=== PATIENT | male | born 1955 | race Caucasian/White ===

== ENCOUNTER → 2016-06-23 | Outpatient (CLI) | payer MEDICARE, BC ==
[2016-06-23 10:20] LABS: Anisocytosis Slight; Basophils % (A) 1 %; CH 30.5; CHCM 30.3; Eosinophils # (A) 0.1 k/uL (0-0.7); Eosinophils % (A) 2 %; HCT 32.5 % (39.0-53.0); HGB 9.6 gm/dL (13.0-17.5); Hypochromasia Marked; Luc # (Auto) 0.11; Luc % (Auto) 4; Lymphocytes # (A) 0.7 k/uL (1.0-4.8); Lymphocytes % (A) 25 %; MCHC 29.6 g/dL (31.0-37.0); MCV 101.4 fL (80.0-100.0); Macrocytosis Slight; Mean Platelet Volume 8.9; Monocytes # (A) 0.2 k/uL (0-1.0); Monocytes % (A) 8 %; Neutrophils # (A) 1.8 k/uL (1.3-7.7); Neutrophils % (A) 61 %; RBC 3.21 m/uL (4.30-5.90); RDW 16.4 % (11.5-15.5); WBC 2.9 k/uL (3.8-10.6); WBC (Perox) 3.08
[2016-06-23 10:23] LABS: Calcium 8.7 mg/dL (8.4-10.2); Magnesium 2.4 mg/dL (1.6-2.3); Phosphorous 4.5 mg/dL (2.5-4.5); Uric Acid 6.6 mg/dL (3.5-8.5)
[2016-06-23 10:24] LABS: Creatinine,Urine Random 54.1 mg/dL
[2016-06-23 10:29] LABS: Appearance,Urine Clear (Clear); Bilirubin,Urine Negative (Negative); Glucose,Urine (UA) Negative (Negative); Ketones,Urine Negative (Negative); Leukocyte Esterase,Urine Negative (Negative); Nitrite,Urine Negative (Negative); PH, Urine 6.5 (5.0-8.0); Particle Count 421; Protein,Urine 3+ (Negative); RBC,Urine 5 /hpf (0-5); Specific Gravity,Urine 1.011 (1.001-1.035); Squamous Epithelial Cell,Urine <1 /hpf (0-4); UA Billing (MACRO vs. MICRO) MICRO; Urobilinogen,Urine <2.0 mg/dL (<2.0); WBC,Urine 2 /hpf (0-5)
[2016-06-23 10:32] LABS: % Iron Saturation 28.9 % (20-50)
[2016-06-23 10:54] LABS: Hemoglobin A1C 4.7 % (4.2-6.1)
[2016-06-23 11:01] LABS: Potassium 6.2 mmol/L (3.5-5.1)
[2016-06-24 12:17] LABS: Mis test requested (Non-blood) Urine Total Protein
== END | disposition home or self-care (01) ==
LOC: LABWHC1 09:21
PROVIDERS: ATTEND Nurse Practitioner Family
DX: E11.22 Type 2 diabetes mellitus with diabetic chronic kidney disease (principal); N18.3 Chronic kidney disease, stage 3 (moderate); E11.29 Type 2 diabetes mellitus with other diabetic kidney complication; N25.81 Secondary hyperparathyroidism of renal origin; D64.9 Anemia, unspecified; E83.42 Hypomagnesemia; M10.9 Gout, unspecified; N39.0 Urinary tract infection, site not specified
CPT/HCPCS: 36415; 80048; 81001; 82040; 82306; 82570; 82728; 83036; 83540; 83550; 83735; 83970; 84100; 84156; 84550; 85025

== ENCOUNTER → 2016-06-25 | Outpatient (CLI) | payer MEDICARE, BC ==
[2016-06-25 11:25] LABS: INR 1.1 (<1.1); Partial Thromboplastin Time 24.7 sec (22.0-30.0); Prothrombin Time 10.9 sec (9.0-12.0)
[2016-06-25 11:51] LABS: Calcium 8.8 mg/dL (8.4-10.2); Potassium 5.6 mmol/L (3.5-5.1)
== END | disposition home or self-care (01) ==
LOC: LABWHC1 10:44
PROVIDERS: ATTEND Nurse Practitioner Family
DX: N18.3 Chronic kidney disease, stage 3 (moderate) (principal)
CPT/HCPCS: 36415; 80048; 85610; 85730

== ENCOUNTER → 2016-07-01 | Outpatient (CLI) | payer MEDICARE, BC ==
[2016-07-01 09:37] LABS: Anisocytosis Slight; Basophils % (A) 1 %; CH 30.5; CHCM 29.3; Eosinophils # (A) 0.1 k/uL (0-0.7); Eosinophils % (A) 1 %; HCT 34.6 % (39.0-53.0); HDW 2.95; Hypochromasia Marked; Luc # (Auto) 0.11; Luc % (Auto) 3; Lymphocytes # (A) 0.8 k/uL (1.0-4.8); Lymphocytes % (A) 22 %; MCH 30.2 pg (25.0-35.0); MCHC 28.8 g/dL (31.0-37.0); MCV 104.7 fL (80.0-100.0); Macrocytosis Moderate; Mean Platelet Volume 8.9; Monocytes # (A) 0.3 k/uL (0-1.0); Monocytes % (A) 8 %; Neutrophils # (A) 2.4 k/uL (1.3-7.7); Neutrophils % (A) 65 %; RDW 16.2 % (11.5-15.5); WBC 3.6 k/uL (3.8-10.6)
[2016-07-01 09:43] LABS: Calcium 8.8 mg/dL (8.4-10.2); Potassium 5.9 mmol/L (3.5-5.1); Total Bilirubin 0.5 mg/dL (0.2-1.3); Total Protein 5.1 g/dL (6.3-8.2)
== END | disposition home or self-care (01) ==
LOC: LABWHC1 08:52
PROVIDERS: ATTEND Internal Medicine Nephrology
DX: N18.3 Chronic kidney disease, stage 3 (moderate) (principal)
CPT/HCPCS: 36415; 80053; 85025

== ENCOUNTER 2016-07-18 20:49 | Inpatient (IN) | payer MEDICARE, BC ==
[2016-07-18 20:56] LABS: Glucose,Whole Blood 83 mg/dL (75-99)
--- NOTE | 2016-07-18 21:05 | ED ---
General Adult HPI - General Stated complaint: altered mental status Time Seen by Provider: 07/18/16 20:51 Source: RN notes reviewed, old records reviewed - History of Present Illness Initial comments: This is a 61-year-old male the ER for evaluation. This patient presents for evaluation of altered mental status, found down. Patient was finally gone to be hypoglycemic. Patient has no complaints of any trauma, no new medications, patient does take steroids daily, patient states he does feel weak, does not recall events of why and up on the ground or why he was of low spottiness decreased level of consciousness. - Related Data Home Medications Medication Instructions Recorded Confirmed Cholecalciferol [Vitamin D3] 1,000 mg PO BID 05/17/14 07/18/[address] [Myfortic] 360 mg PO HS 05/17/14 07/18/16 Pantoprazole Sodium 40 mg PO DAILY 05/17/14 07/18/16 Sodium Bicarbonate Tab 650 mg PO BID 05/17/14 07/18/16 predniSONE 5 mg PO DAILY 05/17/14 07/18/16 Tacrolimus [Prograf] 2 mg PO BID 12/06/14 07/18/16 Warfarin [Coumadin] 1 mg PO DIRECTED 12/06/14 07/18/16 Magnesium Gluconate [Magonate] 500 mg PO DAILY 02/01/15 07/18/16 Aspirin EC [Ecotrin Low Dose] 81 mg PO HS 02/12/16 07/18/16 Atorvastatin [Lipitor] 80 mg PO HS 02/12/16 07/18/16 Calcitriol 1 mcg PO BID 02/12/16 07/18/16 Vit C/E/Zn/Coppr/Lutein/Zeaxan 1 cap PO DAILY 02/12/16 07/18/16 [Preservision Areds 2 Softgel] INSULIN LISPRO (HumaLOG) [humaLOG] 8 units SQ BID 07/18/16 07/18/16 Sodium Polystyrene Sulfon/Sorb 60 ml PO DIRECTED 07/18/16 07/18/16 [Kionex 15 gm/60 ml Suspension] Temazepam [Restoril] 15 mg PO HS 07/18/16 07/18/16 Warfarin [Coumadin] 2 mg PO DIRECTED 07/18/16 07/18/16 Allergies Allergy/AdvReac Type Severity Reaction Status Date / Time codeine AdvReac Severe constipatio Verified 07/18/16 21:35 n Review of Systems ROS Statement: Those systems with pertinent positive or pertinent negative responses have been documented in the HPI. ROS Other: All systems not noted in ROS Statement are negative. Past Medical History Past Medical History: Atrial Fibrillation, Coronary Artery Disease (CAD), Diabetes Mellitus, Deep Vein Thrombosis (DVT), GERD/Reflux, Hyperlipidemia, Myocardial Infarction ([place]), Renal Disease, Skin Disorder, Thyroid Disorder, Vascular Disorder Additional Past Medical History / Comment(s): IN PAST TOOK MEDS FOR HYPERTENSION NONE NOW Last Myocardial Infarction Date:: 2009 History of Any Multi-Drug Resistant Organisms: None Reported Past Surgical History: Adenoidectomy, Bariatric Surgery, Coronary Bypass/CABG, Heart Catheterization, Tonsillectomy Additional Past Surgical History / Comment(s): jamarcus fliter, kidney transplant-2010 has rt kidney,CABG-2009, gastric bypass, RT great toe amputation , [employer] CAT[employer]ACTS, carotid endarterectomy, amputation lt BKA. angioplasty to the popliteal artery and posterior left femoral artery performed by Dr. Fowler on 01-30-15 Past Anesthesia/Blood Transfusion Reactions: No Reported Reaction Additional Past Anesthesia/Blood Transfusion Reaction / Comment(s): HX BLOOD TRANSFUSIONS- NO REACTIONS . Past Psychological History: No Psychological Hx Reported Additional Psychological History / Comment(s): Is medically disabled after his renal transplantation. 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 Past Drug Use History: None Reported - Past Family History Father Family Medical History: Diabetes Mellitus Additional Family Medical History / Comment(s): "big heart", bilat BKA Mother Family Medical History: Cancer Additional Family Medical History / Comment(s): colon General Exam General appearance: alert, in no apparent distress, lethargic Head exam: Present: atraumatic, normocephalic, normal inspection Eye exam: Present: normal appearance, PERRL, EOMI. Absent: scleral icterus, conjunctival injection, periorbital swelling ENT exam: Present: normal exam, mucous membranes moist Neck exam: Present: normal inspection. Absent: tenderness, meningismus, lymphadenopathy Respiratory exam: Present: normal lung sounds bilaterally. Absent: respiratory distress, wheezes, rales, rhonchi, stridor Cardiovascular Exam: Present: regular rate, normal rhythm, normal heart sounds. Absent: systolic murmur, diastolic murmur, rubs, gallop, clicks GI/Abdominal exam: Present: soft, normal bowel sounds. Absent: distended, tenderness, guarding, rebound, rigid Extremities exam: Present: normal inspection, full ROM, normal capillary refill. Absent: tenderness, pedal edema, joint swelling, calf tenderness Back exam: Present: normal inspection Neurological exam: Present: alert, oriented X3, CN II-XII intact Psychiatric exam: Present: normal affect, normal mood Skin exam: Present: warm, dry, intact, normal color. Absent: rash Course Vital Signs 07/18/16 07/18/16 07/18/16 20:56 21:53 22:44 Temperature 95.8 F L 95.8 F L Pulse Rate 71 57 L 73 Respiratory 20 18 18 Rate Blood Pressure 157/68 178/66 O2 Sat by Pulse 98 98 98 Oximetry 07/18/16 23:54 Temperature 95.8 F L Pulse Rate 80 Respiratory 16 Rate Blood Pressure 171/72 O2 Sat by Pulse 95 Oximetry - Reevaluation(s) Reevaluation #1: 07/18/16 22:50 Patient remains bradycardic, hypothermic Reevaluation #2: 07/19/16 00:31 Patient still at this time remains hypothermic Reevaluation #3: 07/19/16 00:31 Patient is feeling better mentally EKG Findings - EKG Comments: EKG Findings:: EKG shows normal sinus rhythm rate of 71, OR 158, QRS 106, QTC 493 Medical Decision Making - Medical Decision Making 61 other current hyperglycemia, hypothermia, altered mental status and syncopal event. Patient is in acute renal failure which is worsening, patient also redesignated started on insulin and sugar therapy, patient will be admitted for neurological evaluation and treatment, monitoring of in mental status. - Lab Data Result diagrams: 07/18/16 21:25 07/18/16 21:25 Lab Results 07/18/16 07/18/16 07/18/16 Range/Units 20:54 21:25 21:25 WBC 4.9 (3.8-10.6) k/uL RBC 3.37 L (4.30-5.90) m/uL Hgb 10.4 L (13.0-17.5) gm/dL Hct 34.2 L (39.0-53.0) % MCV 101.5 H (80.0-100.0) fL MCH 30.9 (25.0-35.0) pg MCHC 30.5 L (31.0-37.0) g/dL RDW 15.4 (11.5-15.5) % Plt Count 193 (150-450) k/uL Neutrophils % 82 % Lymphocytes % 8 % Monocytes % 7 % Eosinophils % 0 % Basophils % 0 % Neutrophils # 4.0 (1.3-7.7) k/uL Lymphocytes # 0.4 L (1.0-4.8) k/uL Monocytes # 0.3 (0-1.0) k/uL Eosinophils # 0.0 (0-0.7) k/uL Basophils # 0.0 (0-0.2) k/uL Hypochromasia Moderate Macrocytosis Slight PT (9.0-12.0) sec INR (<1.1) APTT (22.0-30.0) sec Sodium (137-145) mmol/L Potassium (3.5-5.1) mmol/L Chloride (98-107) mmol/L Carbon Dioxide (22-30) mmol/L Anion Gap mmol/L BUN (9-20) mg/dL Creatinine (0.66-1.25) mg/dL Est GFR (MDRD) Af Amer (>60 ml/min/1.73 sqM) Est GFR (MDRD) Non-Af (>60 ml/min/1.73 sqM) Glucose (74-99) mg/dL POC Glucose (mg/dL) 83 (75-99) mg/dL POC Glu Cuff Cutter ID Plasma Lactic Acid Anastacio (0.7-2.0) mmol/L Calcium (8.4-10.2) mg/dL Phosphorus (2.5-4.5) mg/dL Magnesium (1.6-2.3) mg/dL Total Bilirubin (0.2-1.3) mg/dL AST (17-59) U/L ALT (21-72) U/L Alkaline Phosphatase (38-126) U/L Total Creatine Kinase 52 L (55-170) U/L CK-MB (CK-2) 2.1 (0.0-2.4) ng/mL CK-MB (CK-2) Rel Index 4.0 Troponin I 0.055 H* (0.000-0.034) ng/mL Total Protein (6.3-8.2) g/dL Albumin (3.5-5.0) g/dL TSH (0.465-4.680) mIU/L Free T4 (0.78-2.19) ng/dL 07/18/16 07/18/16 07/18/16 Range/Units 21:25 21:25 21:25 WBC (3.8-10.6) k/uL RBC (4.30-5.90) m/uL Hgb (13.0-17.5) gm/dL Hct (39.0-53.0) % MCV (80.0-100.0) fL MCH (25.0-35.0) pg MCHC (31.0-37.0) g/dL RDW (11.5-15.5) % Plt Count (150-450) k/uL Neutrophils % % Lymphocytes % % Monocytes % % Eosinophils % % Basophils % % Neutrophils # (1.3-7.7) k/uL Lymphocytes # (1.0-4.8) k/uL Monocytes # (0-1.0) k/uL Eosinophils # (0-0.7) k/uL Basophils # (0-0.2) k/uL Hypochromasia Macrocytosis PT 15.6 H (9.0-12.0) sec INR 1.6 (<1.1) APTT 27.4 (22.0-30.0) sec Sodium 140 (137-145) mmol/L Potassium 5.3 H (3.5-5.1) mmol/L Chloride 110 H (98-107) mmol/L Carbon Dioxide 19 L (22-30) mmol/L Anion Gap 11 mmol/L BUN 49 H (9-20) mg/dL Creatinine 4.13 H (0.66-1.25) mg/dL Est GFR (MDRD) Af Amer 18 (>60 ml/min/1.73 sqM) Est GFR (MDRD) Non-Af 15 (>60 ml/min/1.73 sqM) Glucose 67 L (74-99) mg/dL POC Glucose (mg/dL) (75-99) mg/dL POC Glu Cuff Cutter ID Plasma Lactic Acid Anastacio 1.1 (0.7-2.0) mmol/L Calcium 8.8 (8.4-10.2) mg/dL Phosphorus 4.2 (2.5-4.5) mg/dL Magnesium 2.1 (1.6-2.3) mg/dL Total Bilirubin 0.5 (0.2-1.3) mg/dL AST 21 (17-59) U/L ALT 31 (21-72) U/L Alkaline Phosphatase 65 (38-126) U/L Total Creatine Kinase (55-170) U/L CK-MB (CK-2) (0.0-2.4) ng/mL CK-MB (CK-2) Rel Index Troponin I (0.000-0.034) ng/mL Total Protein 5.3 L (6.3-8.2) g/dL Albumin 2.8 L (3.5-5.0) g/dL TSH 8.610 H (0.465-4.680) mIU/L Free T4 1.24 (0.78-2.19) ng/dL 07/18/16 07/18/16 07/18/16 Range/Units 21:57 22:18 22:42 WBC (3.8-10.6) k/uL RBC (4.30-5.90) m/uL Hgb (13.0-17.5) gm/dL Hct (39.0-53.0) % MCV (80.0-100.0) fL MCH (25.0-35.0) pg MCHC (31.0-37.0) g/dL RDW (11.5-15.5) % Plt Count (150-450) k/uL Neutrophils % % Lymphocytes % % Monocytes % % Eosinophils % % Basophils % % Neutrophils # (1.3-7.7) k/uL Lymphocytes # (1.0-4.8) k/uL Monocytes # (0-1.0) k/uL Eosinophils # (0-0.7) k/uL Basophils # (0-0.2) k/uL Hypochromasia Macrocytosis PT (9.0-12.0) sec INR (<1.1) APTT (22.0-30.0) sec Sodium (137-145) mmol/L Potassium (3.5-5.1) mmol/L Chloride (98-107) mmol/L Carbon Dioxide (22-30) mmol/L Anion Gap mmol/L BUN (9-20) mg/dL Creatinine (0.66-1.25) mg/dL Est GFR (MDRD) Af Amer (>60 ml/min/1.73 sqM) Est GFR (MDRD) Non-Af (>60 ml/min/1.73 sqM) Glucose (74-99) mg/dL POC Glucose (mg/dL) 50 L 55 L 161 H (75-99) mg/dL POC Glu Cuff Cutter Genoveva Bond Nicole Smith, Nicole Plasma Lactic Acid Anastacio (0.7-2.0) mmol/L Calcium (8.4-10.2) mg/dL Phosphorus (2.5-4.5) mg/dL Magnesium (1.6-2.3) mg/dL Total Bilirubin (0.2-1.3) mg/dL AST (17-59) U/L ALT (21-72) U/L Alkaline Phosphatase (38-126) U/L Total Creatine Kinase (55-170) U/L CK-MB (CK-2) (0.0-2.4) ng/mL CK-MB (CK-2) Rel Index Troponin I (0.000-0.034) ng/mL Total Protein (6.3-8.2) g/dL Albumin (3.5-5.0) g/dL TSH (0.465-4.680) mIU/L Free T4 (0.78-2.19) ng/dL 07/18/16 Range/Units 23:52 WBC (3.8-10.6) k/uL RBC (4.30-5.90) m/uL Hgb (13.0-17.5) gm/dL Hct (39.0-53.0) % MCV (80.0-100.0) fL MCH (25.0-35.0) pg MCHC (31.0-37.0) g/dL RDW (11.5-15.5) % Plt Count (150-450) k/uL Neutrophils % % Lymphocytes % % Monocytes % % Eosinophils % % Basophils % % Neutrophils # (1.3-7.7) k/uL Lymphocytes # (1.0-4.8) k/uL Monocytes # (0-1.0) k/uL Eosinophils # (0-0.7) k/uL Basophils # (0-0.2) k/uL Hypochromasia Macrocytosis PT (9.0-12.0) sec INR (<1.1) APTT (22.0-30.0) sec Sodium (137-145) mmol/L Potassium (3.5-5.1) mmol/L Chloride (98-107) mmol/L Carbon Dioxide (22-30) mmol/L Anion Gap mmol/L BUN (9-20) mg/dL Creatinine (0.66-1.25) mg/dL Est GFR (MDRD) Af Amer (>60 ml/min/1.73 sqM) Est GFR (MDRD) Non-Af (>60 ml/min/1.73 sqM) Glucose (74-99) mg/dL POC Glucose (mg/dL) 108 H (75-99) mg/dL POC Glu Cuff Cutter Genoveva Bond Plasma Lactic Acid Anastacio (0.7-2.0) mmol/L Calcium (8.4-10.2) mg/dL Phosphorus (2.5-4.5) mg/dL Magnesium (1.6-2.3) mg/dL Total Bilirubin (0.2-1.3) mg/dL AST (17-59) U/L ALT (21-72) U/L Alkaline Phosphatase (38-126) U/L Total Creatine Kinase (55-170) U/L CK-MB (CK-2) (0.0-2.4) ng/mL CK-MB (CK-2) Rel Index Troponin I (0.000-0.034) ng/mL Total Protein (6.3-8.2) g/dL Albumin (3.5-5.0) g/dL TSH (0.465-4.680) mIU/L Free T4 (0.78-2.19) ng/dL - Radiology Data Radiology results: report reviewed (Chest x-ray 2 views negative for acute disease), image reviewed Critical Care Time Critical Care Time: Yes Total Critical Care Time: 31 Disposition Clinical Impression: Altered mental status, Syncope, Hypoglycemia, Hypothermia Disposition: ADMITTED IP TO THIS HOSP Condition: Serious
[2016-07-18] MEDS ORDERED: SODIUM CHLORIDE 0.9% 1,000 ML IV STA ×3 (21:41→21:55)
[2016-07-18] MEDS ORDERED: HYDROCORTISONE SUCCINATE 100 MG/2 ML VIAL IV STA (21:55)
[2016-07-18 21:58] LABS: Glucose,Whole Blood 50 mg/dL (75-99)
[2016-07-18 22:12] LABS: Basophils % (A) 0 %; CH 30.9; CHCM 30.7; Eosinophils % (A) 0 %; HCT 34.2 % (39.0-53.0); HDW 2.92; HGB 10.4 gm/dL (13.0-17.5); Hypochromasia Moderate; Luc % (Auto) 2; Lymphocytes # (A) 0.4 k/uL (1.0-4.8); Lymphocytes % (A) 8 %; MCH 30.9 pg (25.0-35.0); MCHC 30.5 g/dL (31.0-37.0); MCV 101.5 fL (80.0-100.0); Macrocytosis Slight; Mean Platelet Volume 8.8; Monocytes # (A) 0.3 k/uL (0-1.0); Monocytes % (A) 7 %; Neutrophils % (A) 82 %; RBC 3.37 m/uL (4.30-5.90); RDW 15.4 % (11.5-15.5); WBC 4.9 k/uL (3.8-10.6); WBC (Perox) 4.99
[2016-07-18 22:13] LABS: INR 1.6 (<1.1); Partial Thromboplastin Time 27.4 sec (22.0-30.0); Prothrombin Time 15.6 sec (9.0-12.0)
[2016-07-18 22:15] LABS: Calcium 8.8 mg/dL (8.4-10.2); Magnesium 2.1 mg/dL (1.6-2.3); Phosphorous 4.2 mg/dL (2.5-4.5); Potassium 5.3 mmol/L (3.5-5.1); Total Bilirubin 0.5 mg/dL (0.2-1.3); Total Protein 5.3 g/dL (6.3-8.2)
[2016-07-18] MEDS: DEXTROSE 50%-WATER 50 ML SYRINGE IVP STA (22:22)
[2016-07-18 22:30] LABS: Glucose,Whole Blood 55 mg/dL (75-99)
[2016-07-18 22:36] LABS: Creatine Kinase MB 2.1 ng/mL (0.0-2.4)
[2016-07-18 22:43] LABS: Glucose,Whole Blood 161 mg/dL (75-99)
[2016-07-18 22:43] LABS: Troponin I 0.055 ng/mL (0.000-0.034)
[2016-07-18] MEDS ORDERED: DEXTROSE 5%-0.45% NACL 1,000 ML IV ONE (22:50)
--- NOTE | 2016-07-18 23:33 | XR ---
EXAMINATION TYPE: XR chest 2V DATE OF EXAM: 07/18/2016 11:24 PM COMPARISON: 06/18/2016 HISTORY: Chest pain TECHNIQUE: Frontal and lateral views of the chest are obtained. FINDINGS: Heart is enlarged. There is some fluid in the fissures bilaterally and more on the right s sandy. There is mild pulmonary vascular congestion. There is blunting of right costophrenic angle. Ther e are chest leads. There is coarsening of interstitial pulmonary markings. IMPRESSION: There is evidence of congestive heart failure with loculated pleural effusions and large r on the right side. Pleural fluid is significantly increased compared to last exam. There is probabl y some underlying pulmonary fibrosis. Heart appears increased compared to old exam.
[2016-07-18 23:54] LABS: Glucose,Whole Blood 108 mg/dL (75-99)
[2016-07-19 01:04] LABS: Glucose,Whole Blood 75 mg/dL (75-99)
[2016-07-19] MEDS ORDERED: FUROSEMIDE 10 MG/ML 2 ML VIAL IV ONE (01:11)
[2016-07-19] MEDS: SODIUM CHLORIDE 0.9% 1,000 ML IV SCH (01:20)
[2016-07-19] MEDS ORDERED: DEXTROSE 50%-WATER 50 ML SYRINGE IVP STA (01:37)
[2016-07-19 02:24] LABS: Glucose,Whole Blood 63 mg/dL (75-99)
[2016-07-19] MEDS: DEXTROSE 50%-WATER 50 ML SYRINGE IVP STA (02:27)
[2016-07-19 03:10] VITALS: BMI 25.7
[2016-07-19 03:21] LABS: Glucose,Whole Blood 96 mg/dL (75-99)
[2016-07-19 04:31] LABS: Glucose,Whole Blood 97 mg/dL (75-99)
[2016-07-19 05:37] LABS: Glucose,Whole Blood 87 mg/dL (75-99)
[2016-07-19 06:41] LABS: Glucose,Whole Blood 87 mg/dL (75-99)
[2016-07-19] MEDS: INSULIN LISPRO (humaLOG) 300 UNIT/3 ML VIAL SQ SCH ×3 (06:55→18:05)
[2016-07-19 07:14] LABS: Glucose,Whole Blood 107 mg/dL (75-99)
[2016-07-19] MEDS: CHOLECALCIFEROL 1,000 UNIT TAB PO SCH ×2 (08:44→20:41)
[2016-07-19] MEDS: VIT A,C & E-LUTEIN-MINERALS 1 EACH TAB PO SCH (08:45)
[2016-07-19] MEDS: SODIUM BICARBONATE TAB 650 MG TAB PO SCH ×2 (08:45→20:42)
[2016-07-19] MEDS: PANTOPRAZOLE 40 MG TABLET PO SCH (08:45)
[2016-07-19] MEDS: predniSONE 5 MG TAB PO SCH (08:45)
[2016-07-19] MEDS: TACROLIMUS 1 MG CAP PO SCH ×2 (08:45→20:41)
[2016-07-19] MEDS: MAGNESIUM OXIDE 400 MG TAB PO SCH (08:45)
[2016-07-19 09:22] LABS: Appearance,Urine Clear (Clear); Bilirubin,Urine Negative (Negative); Glucose,Urine (UA) Negative (Negative); Ketones,Urine Negative (Negative); Leukocyte Esterase,Urine Negative (Negative); Mucus,Urine Rare /hpf; Nitrite,Urine Negative (Negative); PH, Urine 6.5 (5.0-8.0); Particle Count 396; Protein,Urine 3+ (Negative); RBC,Urine 6 /hpf (0-5); Specific Gravity,Urine 1.008 (1.001-1.035); Squamous Epithelial Cell,Urine <1 /hpf (0-4); UA Billing (MACRO vs. MICRO) MICRO; Urobilinogen,Urine <2.0 mg/dL (<2.0); WBC,Urine 2 /hpf (0-5)
[2016-07-19] MEDS: CALCITRIOL 0.25 MCG CAP PO SCH ×2 (10:27→22:15)
--- NOTE | 2016-07-19 10:54 | P.HPIM ---
History of Present Illness H&P Date: 07/19/16 Chief Complaint: Loss of consciousness Patient is a 61-year-old male well-known to my practice was multiple medical problems, who was at home last night, he states that he took his evening dose of insulin, he was standing by the stove cooking his dinner when he collapsed, family members were not able to get hold of him, they called the police department who went to his house he was found on the floor in his kitchen. Time down is about 2-1/2 hours patient was having hypothermia his temperature was down to 95, he was brought into emergency room he had evidence of hypoglycemia he was given IV fluid was glucose and was admitted to telemetry floor. Chest x-ray revealed evidence of pulmonary congestion was bilateral pleural effusion. Past Medical History Past Medical History: Atrial Fibrillation, Coronary Artery Disease (CAD), Diabetes Mellitus, Deep Vein Thrombosis (DVT), GERD/Reflux, Hyperlipidemia, Myocardial Infarction ([place]), Renal Disease, Skin Disorder, Thyroid Disorder, Vascular Disorder Additional Past Medical History / Comment(s): IN PAST TOOK MEDS FOR HYPERTENSION NONE NOW Last Myocardial Infarction Date:: 2009 History of Any Multi-Drug Resistant Organisms: None Reported Past Surgical History: Adenoidectomy, Bariatric Surgery, Coronary Bypass/CABG, Heart Catheterization, Tonsillectomy Additional Past Surgical History / Comment(s): jamarcus fliter, kidney transplant-2010 has rt kidney,CABG-2009, gastric bypass, RT great toe amputation , [employer] CAT[employer]S, carotid endarterectomy, amputation lt BKA. angioplasty to the popliteal artery and posterior left femoral artery performed by Dr. Fowler on 01-30-15 Past Anesthesia/Blood Transfusion Reactions: No Reported Reaction Additional Past Anesthesia/Blood Transfusion Reaction / Comment(s): HX BLOOD TRANSFUSIONS- NO REACTIONS . Past Psychological History: No Psychological Hx Reported Additional Psychological History / Comment(s): Is medically disabled after his renal transplantation. 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 Past Drug Use History: None Reported - Past Family History Father Family Medical History: Diabetes Mellitus Additional Family Medical History / Comment(s): "big heart", bilat BKA Mother Family Medical History: Cancer Additional Family Medical History / Comment(s): colon Medications and Allergies Home Medications Medication Instructions Recorded Confirmed Type Cholecalciferol [Vitamin D3] 1,000 mg PO BID 05/17/14 07/18/[address] [Myfortic] 360 mg PO HS 05/17/14 07/18/16 History Pantoprazole Sodium 40 mg PO DAILY 05/17/14 07/18/16 History Sodium Bicarbonate Tab 650 mg PO BID 05/17/14 07/18/16 History predniSONE 5 mg PO DAILY 05/17/14 07/18/16 History Tacrolimus [Prograf] 2 mg PO BID 12/06/14 07/18/16 History Warfarin [Coumadin] 1 mg PO DIRECTED 12/06/14 07/18/16 History Magnesium Gluconate [Magonate] 500 mg PO DAILY 02/01/15 07/18/16 History Aspirin EC [Ecotrin Low Dose] 81 mg PO HS 02/12/16 07/18/16 History Atorvastatin [Lipitor] 80 mg PO HS 02/12/16 07/18/16 History Calcitriol 1 mcg PO BID 02/12/16 07/18/16 History Vit C/E/Zn/Coppr/Lutein/Zeaxan 1 cap PO DAILY 02/12/16 07/18/16 History [Preservision Areds 2 Softgel] INSULIN LISPRO (HumaLOG) [humaLOG] 8 units SQ BID 07/18/16 07/18/16 History Sodium Polystyrene Sulfon/Sorb 60 ml PO DIRECTED 07/18/16 07/18/16 History [Kionex 15 gm/60 ml Suspension] Temazepam [Restoril] 15 mg PO HS 07/18/16 07/18/16 History Warfarin [Coumadin] 2 mg PO DIRECTED 07/18/16 07/18/16 History Allergies Allergy/AdvReac Type Severity Reaction Status Date / Time codeine AdvReac Severe constipatio Verified 07/18/16 21:35 n Physical Exam Vitals: Vital Signs Temp Pulse Pulse Resp BP BP Pulse Ox 07/19/16 08:00 97.2 F L 80 18 141/61 99 07/19/16 04:00 97.4 F L 76 18 119/52 94 L 07/19/16 00:38 96.8 F L 72 16 173/75 95 Intake and Output 07/18/16 07/19/16 07/19/16 22:59 06:59 14:59 Intake Total 120 Output Total 550 Balance -550 120 Intake: Oral 120 Output: Urine 550 Other: Voiding Method Urinal # Voids 1 325 Weight 90.71 kg At this time patient is alert and oriented 3 in no apparent distress HEENT head normocephalic and traumatic Neck is supple no JVD no goiter no lymphadenopathy Chest exam reveals a few scattered crackles no wheezing Cardiac exam reveals regular heart sounds S1 and S2 no gallops no murmurs Abdomen is soft nontender no organomegaly with normal bowel sounds Extremity exam reveals no edema no cyanosis or clubbing Results CBC & Chem 7: 07/18/16 21:25 07/18/16 21:25 Labs: Abnormal Lab Results - Last 24 Hours (Table) 07/19/16 07/19/16 07/19/16 Range/Units 02:19 03:19 07:02 POC Glucose (mg/dL) 63 L 107 H (75-99) mg/dL Troponin I 0.047 H* (0.000-0.034) ng/mL Urine Protein (Negative) Urine Blood (Negative) Urine RBC (0-5) /hpf Urine Mucus (None) /hpf 07/19/16 Range/Units 09:00 POC Glucose (mg/dL) (75-99) mg/dL Troponin I (0.000-0.034) ng/mL Urine Protein 3+ H (Negative) Urine Blood Trace H (Negative) Urine RBC 6 H (0-5) /hpf Urine Mucus Rare H (None) /hpf Thrombosis Risk Factor Assmnt - Choose All That Apply Any of the Below Risk Factors Present?: No Each Risk Factor Represents 2 Points: Age 61-74 years Thrombosis Risk Factor Assessment Total Risk Factor Score: 2 Thrombosis Risk Factor Assessment Level: Low Risk Assessment and Plan Plan: #1 syncope was collapse, estimated time of loss of consciousness is stool and a half hours, likely causes hypoglycemia, patient took his his evening dose of insulin, but was still cooking his dinner. Currently glucose level is in normal range #2 hyperthermia on presentation improved #3 acute diastolic congestive heart failure with bilateral pleural effusion #4 acute on chronic renal failure, patient is status post kidney transplant his creatinine has been gradually increasing he is followed by Dr. Saini creatinine on presentation 4.13 BUN 49 #5 underlying history of atrial fibrillation maintained on Coumadin INR was subtherapeutic at 1.6 will increase dose of Coumadin to 2.5 mg daily, will give 5 mg today
[2016-07-19 11:45] LABS: Glucose,Whole Blood 101 mg/dL (75-99)
--- NOTE | 2016-07-19 12:46 | P.CNPUL ---
History of Present Illness Consult date: 07/19/16 Requesting physician: Kyrie Mosquera Reason for consult: abnormal CXR/CT Chief complaint: Syncope History of present illness: This is a very pleasant 61-year-old gentleman who follows with Dr. Mosquera as his primary care physician. He has a past medical history of coronary artery disease with previous coronary artery bypass grafting, atrial fibrillation, diabetes mellitus, DVT with [place] filter placement, GERD, hyperlipidemia, hypothyroidism, right kidney transplant in 2010, left below the knee amputation , right great toe amputation, peripheral vascular disease with angioplasty to the popliteal artery and posterior left femoral artery in 2014. He was here in February 2016 with a left lower lobe pneumonia. The patient is also attempting to be on a kidney transplant list for recurrent renal failure. Last evening he presented to the emergency room after having a syncopal episode. The patient had taken his evening insulin and was cooking his dinner and collapse. Family members had tried to reach him and could not get ahold of him a call the police department who found the patient on the floor his kitchen. There is maintaining a downtime of approximate 2-1/2 hours. The patient was quite hypothermic with a temperature of 95 and hypoglycemic. In the emergency room he was given 3 L of IV fluid and 2 A glucose. He was admitted to the selective care unit. He is seen today in consultation. He is currently awake and alert in no acute distress. He was having issues with wheezing and shortness of breath in the outpatient setting and had been treated with antibiotics approximately 1-2 weeks ago. He was still feeling some shortness of breath yesterday. His admitting chest x-ray revealed evidence of cardiomegaly. There is fluid in the fissures bilaterally more so on the right lung. There is mild pulmonary vascular congestion and blunting of the right costophrenic angle. He had been given 1 dose 20 mg of IV Lasix. He is maintaining good O2 saturations in the upper 90s on 2 L/m per nasal cannula. He's been afebrile. Lactic acid 1.1. No leukocytosis. Influenza screen was negative. He had a troponin leak of 0.055, 0.052. No BNP drawn. His TSH was 8.610 free T4 1 0.24. BUN 49 creatinine 4.13. Review of Systems 14 point review of system was conducted. All negative other than as mentioned in the HPI. Past Medical History Past Medical History: Atrial Fibrillation, Coronary Artery Disease (CAD), Diabetes Mellitus, Deep Vein Thrombosis (DVT), GERD/Reflux, Hyperlipidemia, Myocardial Infarction ([place]), Renal Disease, Skin Disorder, Thyroid Disorder, Vascular Disorder Additional Past Medical History / Comment(s): IN PAST TOOK MEDS FOR HYPERTENSION NONE NOW Last Myocardial Infarction Date:: 2009 History of Any Multi-Drug Resistant Organisms: None Reported Past Surgical History: Adenoidectomy, Bariatric Surgery, Coronary Bypass/CABG, Heart Catheterization, Tonsillectomy Additional Past Surgical History / Comment(s): jamarcus fliter, kidney transplant-2010 has rt kidney,CABG-2009, gastric bypass, RT great toe amputation , [place] CATARACTS, carotid endarterectomy, amputation lt BKA. angioplasty to the popliteal artery and posterior left femoral artery performed by Dr. Fowler on 01-30-15 Past Anesthesia/Blood Transfusion Reactions: No Reported Reaction Additional Past Anesthesia/Blood Transfusion Reaction / Comment(s): HX BLOOD TRANSFUSIONS- NO REACTIONS . Past Psychological History: No Psychological Hx Reported Additional Psychological History / Comment(s): Is medically disabled after his renal transplantation. 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 Past Drug Use History: None Reported - Past Family History Father Family Medical History: Diabetes Mellitus Additional Family Medical History / Comment(s): "big heart", bilat BKA Mother Family Medical History: Cancer Additional Family Medical History / Comment(s): colon Medications and Allergies Home Medications Medication Instructions Recorded Confirmed Type Cholecalciferol [Vitamin D3] 1,000 mg PO BID 05/17/14 07/19/16 History Pantoprazole Sodium 40 mg PO DAILY 05/17/14 07/19/16 History Sodium Bicarbonate Tab 650 mg PO BID 05/17/14 07/19/16 History Tacrolimus [Prograf] 2 mg PO BID 12/06/14 07/19/16 History Magnesium Gluconate [Magonate] 500 mg PO DAILY 02/01/15 07/19/16 History Aspirin EC [Ecotrin Low Dose] 81 mg PO HS 02/12/16 07/19/16 History Atorvastatin [Lipitor] 80 mg PO HS 02/12/16 07/19/16 History Calcitriol 1 mcg PO BID 02/12/16 07/19/16 History Vit C/E/Zn/Coppr/Lutein/Zeaxan 1 cap PO DAILY 02/12/16 07/19/16 History [Preservision Areds 2 Softgel] Sodium Polystyrene Sulfon/Sorb 60 ml PO Q48H 07/18/16 07/19/16 History [Kionex 15 gm/60 ml Suspension] Temazepam [Restoril] 15 mg PO HS 07/18/16 07/19/16 History Carvedilol [Coreg] 3.125 mg PO BID 07/19/16 07/19/16 History INSULIN LISPRO (HumaLOG) [HumaLOG] See Protocol SQ ACHS 07/19/16 07/19/16 History Warfarin [Coumadin] 1 mg PO MOTUWETHFRSA 07/19/16 07/19/16 History Warfarin [Coumadin] 2 mg PO AN 07/19/16 07/19/16 History Allergies Allergy/AdvReac Type Severity Reaction Status Date / Time codeine AdvReac Severe constipatio Verified 07/19/16 13:47 n Physical Exam Vitals: Vital Signs Temp Pulse Pulse Resp BP BP Pulse Ox 07/19/16 08:00 97.2 F L 80 18 141/61 99 07/19/16 04:00 97.4 F L 76 18 119/52 94 L 07/19/16 00:38 96.8 F L 72 16 173/75 95 Intake and Output 07/18/16 07/19/16 07/19/16 22:59 06:59 14:59 Intake Total 120 Output Total 550 Balance -550 120 Intake: Oral 120 Output: Urine 550 Other: Voiding Method Urinal # Voids 1 325 Weight 90.71 kg GENERAL EXAM: Alert, active, comfortable in no apparent distress. HEAD: Normocephalic. EYES: Normal reaction of pupils, equal size. NOSE: Clear with pink turbinates. THROAT: No erythema or exudates. NECK: No masses, no JVD. CHEST: No chest wall deformity. Evidence of previous coronary artery bypass surgery. LUNGS: Equal air entry with wheeze or crackles, more so on the right. CVS: S1 and S2 normal with no audible murmurs, regular rhythm. ABDOMEN: No hepatosplenomegaly, normal bowel sounds, no guarding or rigidity. Extremities: He is a left below the knee amputee. No significant peripheral edema the right lower extremity. Peripheral pulses are intact. Results - Laboratory Findings CBC and BMP: 07/18/16 21:25 07/18/16 21:25 PT/INR, D-dimer PT 15.6 sec (9.0-12.0) H 07/18/16 21:25 INR 1.6 (<1.1) 07/18/16 21:25 Abnormal lab findings: Abnormal Labs 07/19/16 07/19/16 07/19/16 02:19 03:19 07:02 POC Glucose (mg/dL) 63 L 107 H Troponin I 0.047 H* Urine Protein Urine Blood Urine RBC Urine Mucus 07/19/16 07/19/16 07/19/16 09:00 10:24 11:44 POC Glucose (mg/dL) 101 H Troponin I 0.052 H* Urine Protein 3+ H Urine Blood Trace H Urine RBC 6 H Urine Mucus Rare H - Diagnostic Findings Chest x-ray: image reviewed Assessment and Plan Plan: Impression: #1 Syncopal episode secondary to hypoglycemia. #2 Hypoglycemia secondary to insulin dosing prior to oral intake. #3 Diabetes mellitus #4 Dyspnea secondary to fluid volume overload and possible congestive heart failure. Echocardiogram is pending, BNP pending. #5 Borderline troponin leak. #6 Acute on chronic renal failure, current creatinine 4.13. #7 Right kidney transplant secondary to renal failure from diabetes mellitus. The patient is being investigated to be relisted for a second transplant. #8 Severe peripheral vascular disease secondary to diabetes mellitus. The patient has a left below the knee amputee. He is also had angioplasties of the popliteal artery and posterior left femoral artery. He is also status post carotid endarterectomy. #9 Coronary artery disease with previous coronary artery bypass grafting in 2009. #10 Chronic atrial fibrillation, anticoagulated with warfarin, subtherapeutic at 1.6. #11 History of DVT and previous [place] filter placement. #12 Hypertension. #13 Hyperlipidemia. #14 History of morbid obesity, status post gastric bypass. #15 History of left lower lobe pneumonia requiring hospitalization in February 2016. Plan: The patient was seen and evaluated by Dr. Grey. His chest x-ray and labs were reviewed. We'll order a BNP. Echocardiogram is pending. He is anticoagulated with warfarin. Protonix for GI prophylaxis. We'll repeat his chest x-ray in the a.m. We'll continue to follow make further recommendations based on his clinical status. Time with Patient: Greater than 30
--- NOTE | 2016-07-19 12:46 | CONS ---
DATE OF CONSULTATION: Ike is a 61-year-old gentleman with history of coronary artery disease, status post CABG, end-stage renal disease currently being evaluated for kidney transplant, insulin-requiring diabetes, dyslipidemia, history of DVT, history of paroxysmal atrial fibrillation, who presented to the hospital having had an episode of syncope at home. Patient states that he was in [place] being evaluated for kidney transplant, came home on and Thursday. He was found unconscious at home. He was evaluated by the EMS and he had hypothermia and was hypoglycemic and was resuscitated with intravenous dextrose following which he was fine. He came to hospital and since being admitted he is free of symptoms. EKG shows sinus rhythm. Rhythm strip shows that he is in sinus rhythm. He has not had any further syncopal events. He did not have tachy or aidan arrhythmias. A chest x-ray shows a loculated pleural effusion on the right side and right pleural effusion. The patient has had right-sided pleural effusion in the past, but really does not have any symptoms of congestive heart failure. Past medical history is significant for CAD, status post CABG, paroxysmal atrial fibrillation, GERD, dyslipidemia, renal failure, hypothyroidism. Past surgical history is significant for [place] filter placement, kidney transplant, cataract surgery, carotid endarterectomy, left below knee amputation prior left fem bypass, angioplasty of the popliteal artery. ALLERGIES: There are no known drug allergies. Family history is negative for premature coronary artery disease. SOCIAL HISTORY: Negative for smoking, EtOH abuse, or drug abuse. Medications at home include mycophenolate, Protonix, prednisone, Prograf, Coumadin, aspirin, Lipitor, insulin, Coumadin, Restoril. Allergic to CODEINE. REVIEW OF SYSTEMS: HEENT: Unremarkable. CARDIAC: As described above. RESPIRATORY: Negative. GI: Negative. GENITOURINARY: As described above. PSYCHOSOCIAL: Negative. ENDOCRINE: Negative. HEMATOLOGIC: Negative. DERMATOLOGY: Negative. CONSTITUTIONAL: Negative. ONCOLOGICAL: Negative. The rest of the system review is not relevant. On exam, patient is afebrile, heart rate is 80 beats per minute, blood pressure is 140/60, respiratory rate is 18, O2 sat is 99% on 2 L. There is no jugular venous distention. Chest exam reveals diminished air entry at the right base. Heart exam reveals first and second heart sounds. No gallop. No murmur. Abdomen is soft. Exam of the extremities did not reveal any edema. Peripheral pulses are felt. Labs show that the troponins are mildly elevated at 0.05, 0.04, 0.05 secondary to underlying renal failure. Hemoglobin is 10.4. BUN and creatinine are elevated. EKG is as described above. ASSESSMENT: 1. Syncope probably secondary to hypoglycemia. 2. Abnormal chest x-ray showing loculated pleural effusion on the right side. I am not sure if we are really dealing with congestive heart failure in this patient who does not have any cardiac symptoms at this time. 3. Coronary artery disease, status post coronary artery bypass graft. 4. Renal failure, awaiting kidney transplant. 5. Dyslipidemia. 6. Paroxysmal atrial fibrillation. PLAN: Please keep the INR around 2. The patient had a recent negative stress test. I will do an echocardiogram on him on this admission. I am not going to increase the dose of Lasix at this time.
--- NOTE | 2016-07-19 13:10 | ECHOF ---
Referral Reason:chf MEASUREMENTS -------- HEIGHT: 188.0 cm WEIGHT: 90.3 kg BP: 141/61 IVSd: 1.5 cm (0.6 - 1.1) LVIDd: 5.0 cm (3.9 - 5.3) LVPWd: 1.5 cm (0.6 - 1.1) LVIDs: 5.0 cm LA Diam: 4.8 cm (2.7 - 3.8) RVIDd: 3.6 cm (< 3.3) LAESV Index (A-L): 41.95 ml/m Ao Diam: 3.9 cm (2.0 - 3.7) AV Cusp: 1.6 cm (1.5 - 2.6) EPSS: 0.9 cm MV E Bonilla: 1.14 m/s MV DecT: 184 ms MV A Bonilla: 1.01 m/s MV E/A Ratio: 1.13 AV maxP.31 mmHg AV meanP.21 mmHg AR PHT: 386 ms RAP: 5.00 mmHg RVSP: 31.59 mmHg MV EF SLOPE: 77.06 mm/s (70 - 150) MV EXCURSION: 20.48 mm (> 18.000) FINDINGS -------- Sinus rhythm. This was a technically good study. The left ventricular size is normal. There is moderate concentric left ventricular hypertrophy. Overall left ventricular systolic function is mildly impaired with, an EF between 45 - 50 %. Basal inferior LV wall motion is hypokinetic. Basal inferoseptal LV wall motion is hypokinetic. The right ventricle is mildly enlarged. LA is severely dilated >40 ml/m2 The right atrium is normal in size. There is mild to moderate aortic valve sclerosis. There is mild aortic stenosis present. Peak/mean gradient across the Aortic Valve is 16.31mmHg / 9.21mmHg. Can't exclude Bicuspid valve vs fused cusp. Mild mitral annular calcification present. Moderate mitral regurgitation is present. Mild tricuspid regurgitation present. Right ventricular systolic pressure is normal at < 35 mmHg. The pulmonic valve is normal. There is no pulmonic regurgitation present. The aortic root is dilated measuring 3.9cm. There is no pericardial effusion. CONCLUSIONS -------- 1. Sinus rhythm. 2. The right atrium is normal in size. 3. There is mild to moderate aortic valve sclerosis. 4. There is mild aortic stenosis present. 5. Peak/mean gradient across the Aortic Valve is 16.31mmHg / 9.21mmHg. 6. Can't exclude Bicuspid valve vs fused cusp. 7. Mild mitral annular calcification present. 8. Moderate mitral regurgitation is present. 9. Mild tricuspid regurgitation present. 10. Right ventricular systolic pressure is normal at < 35 mmHg. 11. The pulmonic valve is normal. 12. This was a technically good study. 13. The aortic root is dilated measuring 3.9cm. 14. There is no pericardial effusion. 15. The left ventricular size is normal. 16. There is moderate concentric left ventricular hypertrophy. 17. Overall left ventricular systolic function is mildly impaired with, an EF between 45 - 50 %. 18. Basal inferior LV wall motion is hypokinetic. 19. Basal inferoseptal LV wall motion is hypokinetic. 20. The right ventricle is mildly enlarged. 21. LA is severely dilated >40 ml/m2 SURVEILLANCE OBSERVER: Candice Lopez RDCS
[2016-07-19 13:20] LABS: Hemoglobin A1C 4.4 % (4.2-6.1)
[2016-07-19] MEDS: CEFUROXIME 250 MG TAB PO SCH ×2 (14:14→20:41)
[2016-07-19 16:41] LABS: Glucose,Whole Blood 132 mg/dL (75-99)
[2016-07-19] MEDS ORDERED: WARFARIN 5 MG TAB PO ONE (18:00)
[2016-07-19] MEDS: ASPIRIN 81 MG CHEW PO SCH (20:40)
[2016-07-19 20:41] LABS: Glucose,Whole Blood 204 mg/dL (75-99)
[2016-07-19] MEDS: ATORVASTATIN 80 MG TAB PO SCH (20:41)
[2016-07-19] MEDS: TEMAZEPAM 15 MG CAP PO SCH (22:15)
[2016-07-20] MEDS: SODIUM CHLORIDE 0.9% 1,000 ML IV SCH (03:29)
[2016-07-20 05:49] LABS: Glucose,Whole Blood 104 mg/dL (75-99)
[2016-07-20] MEDS: INSULIN LISPRO (humaLOG) 300 UNIT/3 ML VIAL SQ SCH ×3 (06:22→17:08)
[2016-07-20] MEDS: PANTOPRAZOLE 40 MG TABLET PO SCH (06:25)
[2016-07-20 07:27] LABS: INR 1.7 (<1.1); Prothrombin Time 16.6 sec (9.0-12.0)
[2016-07-20 07:39] LABS: Calcium 8.5 mg/dL (8.4-10.2); Total Bilirubin 0.4 mg/dL (0.2-1.3); Total Protein 4.3 g/dL (6.3-8.2)
[2016-07-20] MEDS: CEFUROXIME 250 MG TAB PO SCH (07:58)
[2016-07-20] MEDS: SODIUM BICARBONATE TAB 650 MG TAB PO SCH ×2 (07:59→20:57)
[2016-07-20] MEDS: CALCITRIOL 0.25 MCG CAP PO SCH ×2 (07:59→20:56)
[2016-07-20] MEDS: TACROLIMUS 1 MG CAP PO SCH ×2 (07:59→20:57)
[2016-07-20] MEDS: CHOLECALCIFEROL 1,000 UNIT TAB PO SCH ×2 (07:59→20:56)
[2016-07-20] MEDS: VIT A,C & E-LUTEIN-MINERALS 1 EACH TAB PO SCH (08:00)
[2016-07-20] MEDS: predniSONE 5 MG TAB PO SCH (08:00)
[2016-07-20] MEDS: MAGNESIUM OXIDE 400 MG TAB PO SCH (08:00)
[2016-07-20] MEDS: FUROSEMIDE 40 MG TAB PO SCH (08:00)
[2016-07-20 08:11] LABS: Basophils % (A) 0 %; CH 30.8; CHCM 30.5; Eosinophils % (A) 1 %; HCT 28.9 % (39.0-53.0); HDW 2.79; Hypochromasia Moderate; Luc # (Auto) 0.09; Luc % (Auto) 3; Lymphocytes # (A) 0.7 k/uL (1.0-4.8); Lymphocytes % (A) 19 %; MCH 31.2 pg (25.0-35.0); MCHC 30.7 g/dL (31.0-37.0); MCV 101.5 fL (80.0-100.0); Macrocytosis Slight; Mean Platelet Volume 9.6; Monocytes # (A) 0.3 k/uL (0-1.0); Monocytes % (A) 8 %; Neutrophils # (A) 2.5 k/uL (1.3-7.7); Neutrophils % (A) 70 %; RBC 2.84 m/uL (4.30-5.90); RDW 15.1 % (11.5-15.5); WBC 3.6 k/uL (3.8-10.6); WBC (Perox) 4.04
[2016-07-20 08:15] LABS: HGB 8.9 gm/dL (13.0-17.5)
--- NOTE | 2016-07-20 08:47 | XR ---
EXAMINATION TYPE: XR chest 1V portable DATE OF EXAM: 07/20/2016 7:49 AM COMPARISON: July 18, 2016 HISTORY: Syncopal episode and chest pain TECHNIQUE: Single frontal view of the chest is obtained. FINDINGS: There is redemonstration of interfissural fluid, right greater than left, majority of whic h is associated with the right minor fissure. A small amount of pleural fluid is seen bilaterally wit h the right tracking cephalad. There is redemonstration of cardiomegaly and mild pulmonary vascular c ongestion. Postsurgical changes are again seen of the chest. The osseous structures are intact. IMPRESSION: Sequela of congestive heart failure demonstrated is mild pulmonary vascular congestion, cardiomegaly, and bilateral small pleural effusions (right greater than left with a loculated pleural fluid).
[2016-07-20 08:58] LABS: Manual Review Performed
--- NOTE | 2016-07-20 09:19 | P.NPCON ---
History of Present Illness - Reason for Consult Consult date: 07/20/16 (Renal Transplant) - Chief Complaint hypoglycemia - History of Present Illness 61 yo male with Renal Transplant from [place] 2010 due to diabetic nephropathy , with recent creatinine the past one month 4.3 found unresponsive with hypoglycemia. Came to ED. Given D50 and improved. BP stable. He is alert. CXR showed mild congestion. Started on PO lasix 40mg qd. He is otherwise doing well. He is following with transplant for another kidney. Review of Systems All systems: negative Past Medical History Past Medical History: Atrial Fibrillation, Coronary Artery Disease (CAD), Diabetes Mellitus, Deep Vein Thrombosis (DVT), GERD/Reflux, Hyperlipidemia, Myocardial Infarction ([place]), Renal Disease, Skin Disorder, Thyroid Disorder, Vascular Disorder Additional Past Medical History / Comment(s): IN PAST TOOK MEDS FOR HYPERTENSION NONE NOW Last Myocardial Infarction Date:: 2009 History of Any Multi-Drug Resistant Organisms: None Reported Past Surgical History: Adenoidectomy, Bariatric Surgery, Coronary Bypass/CABG, Heart Catheterization, Tonsillectomy Additional Past Surgical History / Comment(s): jamarcus caniter, kidney transplant-2010 has rt kidney,CABG-2009, gastric bypass, RT great toe amputation , [place] CATARACTS, carotid endarterectomy, amputation lt BKA. angioplasty to the popliteal artery and posterior left femoral artery performed by Dr. Fowler on 01-30-15 Past Anesthesia/Blood Transfusion Reactions: No Reported Reaction Additional Past Anesthesia/Blood Transfusion Reaction / Comment(s): HX BLOOD TRANSFUSIONS- NO REACTIONS . Past Psychological History: No Psychological Hx Reported Additional Psychological History / Comment(s): Is medically disabled after his renal transplantation. 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 Past Drug Use History: None Reported - Past Family History Father Family Medical History: Diabetes Mellitus Additional Family Medical History / Comment(s): "big heart", bilat BKA Mother Family Medical History: Cancer Additional Family Medical History / Comment(s): colon Medications and Allergies Home Medications Medication Instructions Recorded Confirmed Type Cholecalciferol [Vitamin D3] 1,000 mg PO BID 05/17/14 07/19/16 History Pantoprazole Sodium 40 mg PO DAILY 05/17/14 07/19/16 History Sodium Bicarbonate Tab 650 mg PO BID 05/17/14 07/19/16 History Tacrolimus [Prograf] 2 mg PO BID 12/06/14 07/19/16 History Magnesium Gluconate [Magonate] 500 mg PO DAILY 02/01/15 07/19/16 History Aspirin EC [Ecotrin Low Dose] 81 mg PO HS 02/12/16 07/19/16 History Atorvastatin [Lipitor] 80 mg PO HS 02/12/16 07/19/16 History Calcitriol 1 mcg PO BID 02/12/16 07/19/16 History Vit C/E/Zn/Coppr/Lutein/Zeaxan 1 cap PO DAILY 02/12/16 07/19/16 History [Preservision Areds 2 Softgel] Sodium Polystyrene Sulfon/Sorb 60 ml PO Q48H 07/18/16 07/19/16 History [Kionex 15 gm/60 ml Suspension] Temazepam [Restoril] 15 mg PO HS 07/18/16 07/19/16 History Carvedilol [Coreg] 3.125 mg PO BID 07/19/16 07/19/16 History INSULIN LISPRO (HumaLOG) [HumaLOG] See Protocol SQ ACHS 07/19/16 07/19/16 History Warfarin [Coumadin] 1 mg PO MOTUWETHFRSA 07/19/16 07/19/16 History Warfarin [Coumadin] 2 mg PO AN 07/19/16 07/19/16 History Allergies Allergy/AdvReac Type Severity Reaction Status Date / Time codeine AdvReac Severe constipatio Verified 07/19/16 13:47 n Physical Exam Vitals: Vital Signs Temp Pulse Resp BP BP Pulse Ox 07/20/16 04:00 98.2 F 70 16 126/56 97 07/20/16 00:00 98.2 F 80 16 134/61 95 07/19/16 20:22 98.1 F 94 16 130/62 97 07/19/16 16:00 97.4 F L 81 18 151/68 100 07/19/16 12:00 88 18 180/71 98 Intake and Output 07/19/16 07/20/16 07/20/16 22:59 06:59 14:59 Intake Total 240 Output Total 975 Balance 240 -975 Intake: Oral 240 Output: Urine 975 Other: Voiding Method Urinal Urinal # Voids 1 1 # Bowel Movements 1 Weight 91.3 kg - Constitutional General appearance: cooperative, no acute distress - Respiratory Respiratory: bilateral: CTA - Cardiovascular Rhythm: regular Heart sounds: normal: S1, S2 leg Peripheral Edema: bilateral: None Results - Lab Results Most recent lab results Calcium 8.5 mg/dL (8.4-10.2) 07/20/16 06:18 Phosphorus 4.2 mg/dL (2.5-4.5) 07/18/16 21:25 Magnesium 2.1 mg/dL (1.6-2.3) 07/18/16 21:25 07/20/16 06:18 07/20/16 06:18 Assessment and Plan Plan: Assessment: 1. Renal transplant 2010 [facility] with baseline creatinine the past one month 4.3. --Previous baseline was 2.3 --He is on TAC 2mg bid and Myfortic 360mg bid. 2. Stage IV CKD 3. Hypoglycemia- resolved. 4. Fluid overload (noted on CXR) -On ambient air, asymptomatic. Recommendations: 1. Agree with lasix 40mg bid. 2. No evidence of infection and would suggest stopping the ceftin. 3. OK for d/c from renal standpoint.
[2016-07-20] MEDS: MYCOPHENOLATE SODIUM DR 180 MG TABLET.DR PO SCH ×2 (10:01→20:57)
--- NOTE | 2016-07-20 11:25 | PN ---
Ike is a 61-year-old gentleman who is admitted to hospital with having had syncope secondary to hypoglycemia. On this admission he was found to have a loculated pleural effusion and right basilar effusion thought to be related to his underlying renal failure. He had been treated with Lasix with some improvement in her symptoms. He is doing well and is free of symptoms at this time. He is eager to go home. On exam, comfortable at rest. Vital signs are stable. Chest exam reveals good air entry bilaterally. Heart exam reveals first and second heart sounds, ejection systolic murmur in the aortic area. Exam of extremities did not reveal any edema. Peripheral pulses are felt. Echocardiogram shows mild LV systolic dysfunction with an ejection fraction of 45%. Labs show that the hemoglobin is 8.9. INR is 1.7. Potassium is 5, BUN is 48. Creatinine is 4.36. ASSESSMENT: 1. Syncope secondary to hypoglycemia. 2. Chronic renal failure. 3. Coronary artery disease, status post coronary artery bypass grafting. 4. Renal failure awaiting transplant. 5. Paroxysmal atrial fibrillation. PLAN: The patient is symptom free. While he has pleural effusion it is probably related to the underlying renal failure. We have added Lasix. He is stable to be discharged home. Continue to optimize anticoagulant as outpatient.
[2016-07-20 12:02] LABS: Glucose,Whole Blood 121 mg/dL (75-99)
--- NOTE | 2016-07-20 12:06 | P.PN ---
Subjective Principal diagnosis: Syncope was collapse Patient is a 61-year-old male who had a syncopal episode and was found on the floor in his kitchen estimated time down was two and a half hours patient had evidence of hypoglycemia, he also had evidence of pulmonary edema with fluid overload and bilateral pleural effusion he was admitted to telemetry floor, patient has chronic renal failure stage 4 he has a previous history of kidney transplant. His insulin dose was adjusted, he had no new episodes of hypoglycemia, Lasix was added to his regimen, and at this time we are monitoring kidney function and chest x-ray to assess improvement. Objective - Vital Signs Vital signs: Vital Signs Temp 98.2 F 07/20/16 04:00 Pulse 79 07/20/16 08:00 Resp 18 07/20/16 08:00 BP 133/76 07/20/16 08:00 Pulse Ox 98 07/20/16 08:00 Intake & Output 07/19/16 07/20/16 07/20/16 18:59 06:59 18:59 Intake Total 480 300 Output Total 600 975 Balance -120 -975 300 Weight 91.3 kg Intake: Oral 480 300 Output: Urine 600 975 Other: Voiding Method Urinal # Voids 325 1 1 # Bowel Movements 1 - Exam In general patient is alert and oriented 3 in no apparent distress HEENT head normocephalic and atraumatic Neck is supple no JVD no goiter no lymphadenopathy Chest exam reveals a few scattered crackles no wheezing Cardiac exam reveals regular heart sounds no gallops no murmurs Abdomen is soft nontender no organomegaly Extremity exam reveals no edema no cyanosis or clubbing - Labs CBC & Chem 7: 07/20/16 06:18 07/20/16 06:18 Labs: Abnormal Lab Results - Last 24 Hours (Table) 07/19/16 07/19/16 07/20/16 Range/Units 16:40 20:39 05:46 WBC (3.8-10.6) k/uL RBC (4.30-5.90) m/uL Hgb (13.0-17.5) gm/dL Hct (39.0-53.0) % MCV (80.0-100.0) fL MCHC (31.0-37.0) g/dL Lymphocytes # (1.0-4.8) k/uL PT (9.0-12.0) sec Chloride (98-107) mmol/L Carbon Dioxide (22-30) mmol/L BUN (9-20) mg/dL Creatinine (0.66-1.25) mg/dL POC Glucose (mg/dL) 132 H 204 H 104 H (75-99) mg/dL AST (17-59) U/L Total Protein (6.3-8.2) g/dL Albumin (3.5-5.0) g/dL 07/20/16 07/20/16 07/20/16 Range/Units 06:18 06:18 06:18 WBC 3.6 L (3.8-10.6) k/uL RBC 2.84 L (4.30-5.90) m/uL Hgb 8.9 L D (13.0-17.5) gm/dL Hct 28.9 L (39.0-53.0) % MCV 101.5 H (80.0-100.0) fL MCHC 30.7 L (31.0-37.0) g/dL Lymphocytes # 0.7 L (1.0-4.8) k/uL PT 16.6 H (9.0-12.0) sec Chloride 111 H (98-107) mmol/L Carbon Dioxide 18 L (22-30) mmol/L BUN 48 H (9-20) mg/dL Creatinine 4.36 H (0.66-1.25) mg/dL POC Glucose (mg/dL) (75-99) mg/dL AST 15 L (17-59) U/L Total Protein 4.3 L (6.3-8.2) g/dL Albumin 2.2 L (3.5-5.0) g/dL Microbiology - Last 24 Hours (Table) 07/19/16 09:00 Urine Culture - Preliminary Urine,Clean Catch Assessment and Plan Plan: #1 syncope was collapse, estimated time of loss of consciousness is two and a half hours, likely causes hypoglycemia, patient took his his evening dose of insulin, but was still cooking his dinner. Currently glucose level is in normal range, continue to monitor #2 hypothermia on presentation improved #3 acute diastolic congestive heart failure with bilateral pleural effusion, Lasix 40 mg by mouth daily was added to regimen, clinically as there is improvement will recheck chest x-ray in a.m. tomorrow #4 acute on chronic renal failure, patient is status post kidney transplant his creatinine has been gradually increasing he is followed by Dr. Saini creatinine on presentation 4.13 BUN 49 will recheck labs to assess kidney function tomorrow after the addition of Lasix #5 underlying history of atrial fibrillation maintained on Coumadin INR was subtherapeutic at 1.6 will increase dose of Coumadin to 2.5 mg daily, will give 5 mg today
--- NOTE | 2016-07-20 12:06 | P.PN ---
Subjective Principal diagnosis: Acute congestive heart failure secondary to diastolic dysfunction, and chronic renal failure. This is a very pleasant 61-year-old gentleman who follows with Dr. Mosquera as his primary care physician. He has a past medical history of coronary artery disease with previous coronary artery bypass grafting, atrial fibrillation, diabetes mellitus, DVT with [place] filter placement, GERD, hyperlipidemia, hypothyroidism, right kidney transplant in 2010, left below the knee amputation , right great toe amputation, peripheral vascular disease with angioplasty to the popliteal artery and posterior left femoral artery in 2014. He was here in February 2016 with a left lower lobe pneumonia. The patient is also attempting to be on a kidney transplant list for recurrent renal failure. Last evening he presented to the emergency room after having a syncopal episode. The patient had taken his evening insulin and was cooking his dinner and collapse. Family members had tried to reach him and could not get ahold of him a call the police department who found the patient on the floor his kitchen. There is maintaining a downtime of approximate 2-1/2 hours. The patient was quite hypothermic with a temperature of 95 and hypoglycemic. In the emergency room he was given 3 L of IV fluid and 2 A glucose. He was admitted to the selective care unit. He is seen today in consultation. He is currently awake and alert in no acute distress. He was having issues with wheezing and shortness of breath in the outpatient setting and had been treated with antibiotics approximately 1-2 weeks ago. He was still feeling some shortness of breath yesterday. His admitting chest x-ray revealed evidence of cardiomegaly. There is fluid in the fissures bilaterally more so on the right lung. There is mild pulmonary vascular congestion and blunting of the right costophrenic angle. He had been given 1 dose 20 mg of IV Lasix. He is maintaining good O2 saturations in the upper 90s on 2 L/m per nasal cannula. He's been afebrile. Lactic acid 1.1. No leukocytosis. Influenza screen was negative. He had a troponin leak of 0.055, 0.052. No BNP drawn. His TSH was 8.610 free T4 1 0.24. BUN 49 creatinine 4.13. Patient was reevaluated today on 07/20/2016, he is feeling much better clinically , but continues to have some findings of fluid overload specially in the right lung, continues to have findings of fluid in the fissure. Patient remains on Lasix at 40 mg daily, and I will keep him on that dose, repeat chest x-ray in a.m., and if he continues to improve probably discharge the patient home in a.m. I have discontinued and Ceftin, clearly the findings are findings of fluid overload and congestive heart failure rather than findings of pneumonia. WBC count today 3.6 hemoglobin is 8.9. BUN is 48 creatinine is 4.36 Objective - Vital Signs Vital signs: Vital Signs Temp 98.2 F 07/20/16 04:00 Pulse 79 07/20/16 08:00 Resp 18 07/20/16 08:00 BP 133/76 07/20/16 08:00 Pulse Ox 98 07/20/16 08:00 Intake & Output 07/19/16 07/20/16 07/20/16 18:59 06:59 18:59 Intake Total 480 300 Output Total 600 975 Balance -120 -975 300 Weight 91.3 kg Intake: Oral 480 300 Output: Urine 600 975 Other: Voiding Method Urinal # Voids 325 1 1 # Bowel Movements 1 - Exam GENERAL EXAM: Alert, active, comfortable in no apparent distress. HEAD: Normocephalic. EYES: Normal reaction of pupils, equal size. NOSE: Clear with pink turbinates. THROAT: No erythema or exudates. NECK: No masses, no JVD. CHEST: No chest wall deformity. Evidence of previous coronary artery bypass surgery. LUNGS: Equal air entry with wheeze or crackles, more so on the right. CVS: S1 and S2 normal with no audible murmurs, regular rhythm. ABDOMEN: No hepatosplenomegaly, normal bowel sounds, no guarding or rigidity. Extremities: He is a left below the knee amputee. No significant peripheral edema the right lower extremity. Peripheral pulses are intact. - Labs CBC & Chem 7: 07/20/16 06:18 07/20/16 06:18 Labs: Abnormal Lab Results - Last 24 Hours (Table) 07/19/16 07/19/16 07/20/16 Range/Units 16:40 20:39 05:46 WBC (3.8-10.6) k/uL RBC (4.30-5.90) m/uL Hgb (13.0-17.5) gm/dL Hct (39.0-53.0) % MCV (80.0-100.0) fL MCHC (31.0-37.0) g/dL Lymphocytes # (1.0-4.8) k/uL PT (9.0-12.0) sec Chloride (98-107) mmol/L Carbon Dioxide (22-30) mmol/L BUN (9-20) mg/dL Creatinine (0.66-1.25) mg/dL POC Glucose (mg/dL) 132 H 204 H 104 H (75-99) mg/dL AST (17-59) U/L Total Protein (6.3-8.2) g/dL Albumin (3.5-5.0) g/dL 07/20/16 07/20/16 07/20/16 Range/Units 06:18 06:18 06:18 WBC 3.6 L (3.8-10.6) k/uL RBC 2.84 L (4.30-5.90) m/uL Hgb 8.9 L D (13.0-17.5) gm/dL Hct 28.9 L (39.0-53.0) % MCV 101.5 H (80.0-100.0) fL MCHC 30.7 L (31.0-37.0) g/dL Lymphocytes # 0.7 L (1.0-4.8) k/uL PT 16.6 H (9.0-12.0) sec Chloride 111 H (98-107) mmol/L Carbon Dioxide 18 L (22-30) mmol/L BUN 48 H (9-20) mg/dL Creatinine 4.36 H (0.66-1.25) mg/dL POC Glucose (mg/dL) (75-99) mg/dL AST 15 L (17-59) U/L Total Protein 4.3 L (6.3-8.2) g/dL Albumin 2.2 L (3.5-5.0) g/dL Microbiology - Last 24 Hours (Table) 07/19/16 09:00 Urine Culture - Preliminary Urine,Clean Catch Assessment and Plan Plan: #1 Syncopal episode secondary to hypoglycemia. #2 Hypoglycemia secondary to insulin dosing prior to oral intake. #3 Diabetes mellitus #4 Dyspnea secondary to fluid volume overload and possible congestive heart failure. Echocardiogram is pending, BNP pending. #5 Borderline troponin leak. #6 Acute on chronic renal failure, current creatinine 4.13. #7 Right kidney transplant secondary to renal failure from diabetes mellitus. The patient is being investigated to be relisted for a second transplant. #8 Severe peripheral vascular disease secondary to diabetes mellitus. The patient has a left below the knee amputee. He is also had angioplasties of the popliteal artery and posterior left femoral artery. He is also status post carotid endarterectomy. #9 Coronary artery disease with previous coronary artery bypass grafting in 2009. #10 Chronic atrial fibrillation, anticoagulated with warfarin, subtherapeutic at 1.6. #11 History of DVT and previous [place] filter placement. #12 Hypertension. #13 Hyperlipidemia. #14 History of morbid obesity, status post gastric bypass. #15 History of left lower lobe pneumonia requiring hospitalization in February 2016. Recommendation: Discussed the findings again on the chest x-ray with the patient , I will keep him on Lasix, reviewed the echocardiogram report, will likely repeat the chest x-ray in a.m., and discharge the patient home in a.m. Follow- up with me on outpatient basis. Time with Patient: Less than 30
[2016-07-20 16:50] LABS: Glucose,Whole Blood 200 mg/dL (75-99)
[2016-07-20] MEDS ORDERED: WARFARIN 5 MG TAB PO ONE (18:00)
[2016-07-20 20:24] LABS: Glucose,Whole Blood 150 mg/dL (75-99)
[2016-07-20] MEDS: ATORVASTATIN 80 MG TAB PO SCH (20:56)
[2016-07-20] MEDS: ASPIRIN 81 MG CHEW PO SCH (20:56)
[2016-07-20] MEDS: TEMAZEPAM 15 MG CAP PO SCH (22:49)
[2016-07-21] MEDS: SODIUM CHLORIDE 0.9% 1,000 ML IV SCH (06:00)
[2016-07-21 06:06] LABS: Glucose,Whole Blood 140 mg/dL (75-99)
[2016-07-21] MEDS: PANTOPRAZOLE 40 MG TABLET PO SCH (06:21)
[2016-07-21] MEDS: INSULIN LISPRO (humaLOG) 300 UNIT/3 ML VIAL SQ SCH ×2 (06:21→12:00)
[2016-07-21 06:48] LABS: Basophils % (A) 1 %; CH 30.7; CHCM 30.2; Eosinophils % (A) 1 %; HCT 29.7 % (39.0-53.0); HDW 2.85; HGB 9.2 gm/dL (13.0-17.5); Hypochromasia Marked; Luc # (Auto) 0.08; Luc % (Auto) 2; Lymphocytes # (A) 0.6 k/uL (1.0-4.8); Lymphocytes % (A) 18 %; MCH 31.5 pg (25.0-35.0); MCHC 30.8 g/dL (31.0-37.0); MCV 102.3 fL (80.0-100.0); Macrocytosis Slight; Mean Platelet Volume 8.5; Monocytes # (A) 0.3 k/uL (0-1.0); Monocytes % (A) 8 %; Neutrophils # (A) 2.3 k/uL (1.3-7.7); Neutrophils % (A) 70 %; RDW 15.1 % (11.5-15.5); WBC 3.3 k/uL (3.8-10.6); WBC (Perox) 3.35
[2016-07-21 07:04] LABS: INR 2.9 (<1.1); Prothrombin Time 27.8 sec (9.0-12.0)
[2016-07-21 07:14] LABS: Calcium 8.4 mg/dL (8.4-10.2); Total Bilirubin 0.5 mg/dL (0.2-1.3); Total Protein 4.4 g/dL (6.3-8.2)
[2016-07-21] MEDS: CHOLECALCIFEROL 1,000 UNIT TAB PO SCH (08:53)
[2016-07-21] MEDS: FUROSEMIDE 40 MG TAB PO SCH (08:54)
[2016-07-21] MEDS: MAGNESIUM OXIDE 400 MG TAB PO SCH (08:54)
[2016-07-21] MEDS: SODIUM BICARBONATE TAB 650 MG TAB PO SCH (08:55)
[2016-07-21] MEDS: TACROLIMUS 1 MG CAP PO SCH (08:55)
[2016-07-21] MEDS: predniSONE 5 MG TAB PO SCH (08:55)
[2016-07-21] MEDS: VIT A,C & E-LUTEIN-MINERALS 1 EACH TAB PO SCH (08:56)
[2016-07-21 09:03] VITALS: RESP 18; TEMP 97.3
--- NOTE | 2016-07-21 09:11 | XR ---
EXAMINATION TYPE: XR chest 1V portable DATE OF EXAM: 07/21/2016 9:02 AM HISTORY: Difficulty breathing. REFERENCE: Previous study dated 07/20/2016. FINDINGS: There has been a midline sternotomy. Heart size is upper limits of normal. Pulmonary vascul ature has improved. There continues to be a pseudotumor in the right major fissure. There is a locula rafal right effusion and a smaller left effusion. There is no meli interstitial change. IMPRESSION: IMPROVING CHANGES OF PULMONARY EDEMA.
[2016-07-21] MEDS: CALCITRIOL 0.25 MCG CAP PO SCH (09:38)
[2016-07-21] MEDS: MYCOPHENOLATE SODIUM DR 180 MG TABLET.DR PO SCH (09:38)
--- NOTE | 2016-07-21 09:58 | CDI ---
In responding to this query, please exercise your independent professional judgment. The [facility] Coding Staff and Clinical Documentation Specialists appreciate your assistance in clarifying documentation, maintaining compliance with coding guidelines, accurately documenting patients condition and capturing severity of illness. The fact that a question is asked does not imply that any particular answer is desired or expected. Communication forms are a method of clarifying documentation and are not made part of the Legal Health Record. Thank you in advance for your clarification. Last Revision, April [address] [place] [address] Documentation Clarification Form Date: 07/21/2016 9:50:00 AM From: Meghann Luo RN, CCDS Admit Date: 07/18/2016 11:58:00 PM Patient Name: Ike Keller Visit Number: [id number] Dr. Kyrie Mosquera/Velma GUERRA . 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, CAD, CABG, RI, Atrial Fib Clinical Indicators: Hemoglobin: 10.4/8.9/9.2 Hematocrit: 34.2/28.9/29.7 Treatment: Labs AM Daily 2L IVF Bolus In order to capture the severity of condition, please clarify the type of anemia and etiology if known: Acute blood loss anemia Acute on chronic blood loss anemia Chronic blood loss anemia Iron deficiency anemia Hemolytic anemia Drug induced anemia Anemia of chronic disease Nutritional anemia Anemia of chronic kidney disease Unable to determine Other, please specify Please document in your progress notes and discharge summary in order to capture severity of illness and risk of mortality. Include clinical findings that support your diagnosis. FYI: Press F11 to launch patient chart. Place X here if this finding has no clinical significance, is not applicable or if you are not able to provide any additional documentation. EVE
--- NOTE | 2016-07-21 10:27 | CDI ---
In responding to this query, please exercise your independent professional judgment. The [facility] Coding Staff and Clinical Documentation Specialists appreciate your assistance in clarifying documentation, maintaining compliance with coding guidelines, accurately documenting patients condition and capturing severity of illness. The fact that a question is asked does not imply that any particular answer is desired or expected. Communication forms are a method of clarifying documentation and are not made part of the Legal Health Record. Thank you in advance for your clarification. Last Revision, April 2015 Janeth Perez [address] [facility] [place] [address] Documentation Clarification Form Date: 07/21/2016 9:59:00 AM From: Meghann Garcia Admit Date: 07/18/2016 11:58:00 PM Patient Name: Ike Keller Visit Number: [id number] Dr. Crissy Saini Patient history/risk factors Renal transplant 2010 d/t diabetic nephropathy, CKD stage 4 awaiting another transplant Atrial Fib, CAD, MS, CABG, Left BKA Clinical Indicators: 07/19 H&P: "Acute diastolic CHF with bilateral pleural effusion, 4 acute on chronic renal failure, patient is status post kidney transplant his creatinine has been gradually increasing he is followed by Dr. Saini, creatinine on presentation 4.13 BUN 49." Lab findings: BNP: 60,900 BUN: 49/48/52 Creat: 4.13/4.36/4.32 Trop: .055/.052 CXR: CHF with loculated pleural effusions larger on the right side. Pleural fluid significantly increased. There is probably some underlying pulmonary fibrosis Vital Signs: Temp 95.8, hr 57, RR 18, B/P 157/68, Spo2 98% RA Treatment: Lasix 20 IVP x1 dose followed by 40 mg PO QD 2L IVF Bolus followed by 20 CC/ hr Consults: Cardiology, Nephrology In your professional opinion, can you please clarify the relationship, if any, between the renal failure and heart failure? Cardiorenal Syndrome Hypertensive Heart with CHF and CKD Hypertensive cardiovascular disease with only CHF Hypertensive cardiovascular disease with only CKD Other Unable to determine Please document in your progress notes and discharge summary in order to capture severity of illness and risk of mortality. Include clinical findings that support your diagnosis. FYI: Press F11 to launch patient chart. Place X here if this finding has no clinical significance, is not applicable or if you are not able to provide any additional documentation. MTDD
--- NOTE | 2016-07-21 10:43 | P.PN ---
Subjective Principal diagnosis: Syncope secondary to hypoglycemia This is a pleasant 61-year-old gentleman with history of eye pretension, diabetes, hyperlipidemia, chronic renal failure, coronary artery disease with prior bypass surgery and prior left below the knee amputation secondary to diabetes, paroxysmal atrial fibrillation, on Coumadin for anticoagulation, who presented to the hospital with a syncopal spell secondary to hypoglycemia. On admission here he was found to have a loculated pleural effusion and right basilar effusion. He was treated with IV Lasix, weight is down 3 kg from admission. He is currently on oral diuretics at this time. White blood cell count 3.3, hemoglobin 9.2, INR 2.9, BUN 52, creatinine 4.3, potassium 5.0. At the time of my examination this morning, patient has been up ambulating without any difficulty. Blood pressure 130/50, heart rate in the 60s. Breathing is stable. Denies any dizziness or lightheadedness. Blood sugars stable. Objective - Vital Signs Vital signs: Vital Signs Temp 97.3 F L 07/21/16 08:00 Pulse 74 07/21/16 08:00 Resp 18 07/21/16 08:00 BP 152/59 07/21/16 08:00 Pulse Ox 99 07/21/16 08:00 Intake & Output 07/20/16 07/21/16 07/21/16 18:59 06:59 18:59 Intake Total 780 443 Output Total 400 800 800 Balance 380 800 -357 Weight 88.9 kg Intake: IV 83 Sodium Chloride 0.9% 1, 83 000 ml @ 20 mls/hr IV . Q24H [facility] Rx#:[id number] Oral 780 360 Output: Urine 400 800 800 Other: Voiding Method Urinal # Voids 1 # Bowel Movements 0 - Exam PHYSICAL EXAMINATION: HEENT: Head is atraumatic, normocephalic. Pupils equal, round. Neck is supple. There is no elevated jugular venous pressure. HEART EXAMINATION: Heart S1 S2 1 systolic murmur is heard. CHEST EXAMINATION: Lungs are clear to auscultation and precussion. No chest wall tenderness is noted on palpation or with deep breathing. ABDOMEN: Soft, nontender. Bowel sounds are heard. No organomegaly noted. EXTREMITIES: 2+ peripheral pulse to the right lower extremity, patient has a left below the knee amputation with prosthesis in place. No evidence of peripheral edema and no calf tenderness noted. NEUROLOGIC patient is awake, alert and oriented -3. . - Labs CBC & Chem 7: 07/21/16 05:51 07/21/16 05:51 Labs: Abnormal Lab Results - Last 24 Hours (Table) 07/20/16 07/20/16 07/20/16 Range/Units 11:48 16:38 20:22 WBC (3.8-10.6) k/uL RBC (4.30-5.90) m/uL Hgb (13.0-17.5) gm/dL Hct (39.0-53.0) % MCV (80.0-100.0) fL MCHC (31.0-37.0) g/dL Lymphocytes # (1.0-4.8) k/uL PT (9.0-12.0) sec Chloride (98-107) mmol/L Carbon Dioxide (22-30) mmol/L BUN (9-20) mg/dL Creatinine (0.66-1.25) mg/dL Glucose (74-99) mg/dL POC Glucose (mg/dL) 121 H 200 H 150 H (75-99) mg/dL AST (17-59) U/L Total Protein (6.3-8.2) g/dL Albumin (3.5-5.0) g/dL 07/21/16 07/21/16 07/21/16 Range/Units 05:51 05:51 05:51 WBC 3.3 L (3.8-10.6) k/uL RBC 2.90 L (4.30-5.90) m/uL Hgb 9.2 L (13.0-17.5) gm/dL Hct 29.7 L (39.0-53.0) % MCV 102.3 H (80.0-100.0) fL MCHC 30.8 L (31.0-37.0) g/dL Lymphocytes # 0.6 L (1.0-4.8) k/uL PT 27.8 H (9.0-12.0) sec Chloride 112 H (98-107) mmol/L Carbon Dioxide 19 L (22-30) mmol/L BUN 52 H (9-20) mg/dL Creatinine 4.32 H (0.66-1.25) mg/dL Glucose 124 H (74-99) mg/dL POC Glucose (mg/dL) (75-99) mg/dL AST 14 L (17-59) U/L Total Protein 4.4 L (6.3-8.2) g/dL Albumin 2.3 L (3.5-5.0) g/dL 07/21/16 Range/Units 06:02 WBC (3.8-10.6) k/uL RBC (4.30-5.90) m/uL Hgb (13.0-17.5) gm/dL Hct (39.0-53.0) % MCV (80.0-100.0) fL MCHC (31.0-37.0) g/dL Lymphocytes # (1.0-4.8) k/uL PT (9.0-12.0) sec Chloride (98-107) mmol/L Carbon Dioxide (22-30) mmol/L BUN (9-20) mg/dL Creatinine (0.66-1.25) mg/dL Glucose (74-99) mg/dL POC Glucose (mg/dL) 140 H (75-99) mg/dL AST (17-59) U/L Total Protein (6.3-8.2) g/dL Albumin (3.5-5.0) g/dL Microbiology - Last 24 Hours (Table) 07/19/16 09:00 Urine Culture - Final Urine,Clean Catch Assessment and Plan (1) Syncope Status: Acute (2) CAD (coronary artery disease) Status: Acute (3) Hx of CABG Status: Acute (4) HTN (hypertension) Status: Acute (5) Diabetes Status: Acute (6) Hyperlipemia Status: Acute (7) Paroxysmal a-fib Status: Acute (8) History of left below knee amputation Status: Acute (9) Peripheral vascular occlusive disease Status: Acute (10) Status post kidney transplant Status: Acute Plan: From cardiology's perspective, patient should be able to be discharged home today. We will make him a follow-up appointment to see Dr. Gomez in the office post discharge. DNP note has been reviewed, I agree with a documented findings and plan of care. Patient was seen and examined.
[2016-07-21 11:22] VITALS: BP 126/71; PULSE 76
[2016-07-21 11:54] LABS: Glucose,Whole Blood 98 mg/dL (75-99)
--- NOTE | 2016-07-21 12:43 | P.DS ---
Providers Date of admission: 07/18/16 23:58 Expected date of discharge: 07/21/16 Attending physician: Kyrie Mosquera Consults: 07/19/16 10:38 Consult Physician Routine Consulting Provider: Vee Grey Consult Reason/Comments: pleural effusion Do you want consulting provider notified?: Yes 07/19/16 10:39 Consult Physician Routine Consulting Provider: Shawn Martins Consult Reason/Comments: CHF Do you want consulting provider notified?: Yes 07/19/16 10:55 Consult Physician Routine Consulting Provider: Crissy Saini Consult Reason/Comments: CKD Do you want consulting provider notified?: Yes Primary care physician: Kyrie Eveline [facility] Course: Discharge diagnosis #1 syncope was collapse, estimated time of loss of consciousness is two and a half hours, likely causes hypoglycemia, patient took his his evening dose of insulin, but was still cooking his dinner. Currently glucose level is in normal range, continue to monitor #2 hypothermia on presentation improved #3 acute diastolic congestive heart failure with bilateral pleural effusion, Lasix 40 mg by mouth daily was added to regimen, clinically as there is improvement. Chest x-ray showing improving pulmonary edema. Discussed diuretics with both pulmonary and nephrology. They both agreed to continue Lasix 40 mg by mouth daily #4 acute on chronic renal failure, patient is status post kidney transplant his creatinine has been gradually increasing he is followed by Dr. Saini creatinine on presentation 4.13 BUN 49 will recheck labs to assess kidney function tomorrow after the addition of Lasix #5 history of paroxysmal atrial fibrillation. INR 2.9 at discharge Hospital course Patient is a 61-year-old male who had a syncopal episode and was found on the floor in his kitchen estimated time down was two and a half hours patient had evidence of hypoglycemia, he also had evidence of pulmonary edema with fluid overload and bilateral pleural effusion he was admitted to telemetry floor, patient has chronic renal failure stage 4 he has a previous history of kidney transplant. Patient's blood sugars have improved. He's been educated on not waiting too long to eat after taking insulin. Also followed by pulmonary, cardiology and nephrology during this admission. Chest x-ray had showed pulmonary edema with fluid overload he was diuresed. Today's chest x-ray shows improving pulmonary edema. Pulmonary service is recommending to continue Lasix 40 mg by mouth daily. He'll follow-up with pulmonary and cardiology in the office. Nephrology is aware of patient continuing Lasix at home. And they'll follow up with him in the office. Patient's symptoms have improved he is medically stable for discharge. Please refer to chart for any further details. Recommend checking CBC and BMP on Thursday. Patient follow-up with Dr. Mosquera , Dr. Gomez, Dr. Grey, and Dr. Saini in 1 week Patient Condition at Discharge: Stable Plan - Discharge Summary New Discharge Prescriptions: Furosemide [Lasix] 40 mg PO DAILY #30 tab Discharge Medication List Cholecalciferol [Vitamin D3] 1,000 mg PO BID 05/17/14 [History] Pantoprazole Sodium 40 mg PO DAILY 05/17/14 [History] Sodium Bicarbonate Tab 650 mg PO BID 05/17/14 [History] Tacrolimus [Prograf] 2 mg PO BID 12/06/14 [History] Magnesium Gluconate [Magonate] 500 mg PO DAILY 02/01/15 [History] Aspirin EC [Ecotrin Low Dose] 81 mg PO HS 02/12/16 [History] Atorvastatin [Lipitor] 80 mg PO HS 02/12/16 [History] Calcitriol 1 mcg PO BID 02/12/16 [History] Vit C/E/Zn/Coppr/Lutein/Zeaxan [Preservision Areds 2 Softgel] 1 cap PO DAILY 11/21 [History] Sodium Polystyrene Sulfon/Sorb [Kionex 15 gm/60 ml Suspension] 60 ml PO Q48H 03/24 [History] Temazepam [Restoril] 15 mg PO HS 07/18/16 [History] Carvedilol [Coreg] 3.125 mg PO BID 07/19/16 [History] INSULIN LISPRO (HumaLOG) [humaLOG] See Protocol SQ ACHS 07/19/16 [History] Warfarin [Coumadin] 1 mg PO MOTUWETHFRSA 07/19/16 [History] Warfarin [Coumadin] 2 mg PO AN 07/19/16 [History] Furosemide [Lasix] 40 mg PO DAILY #30 tab 07/21/16 [Rx] predniSONE 5 mg PO DAILY tab 07/21/16 [Rx] Follow up Appointment(s)/Referral(s): Kyrie Mosquera MD [Primary Care Provider] - 1 Week Darryn Gomez MD [STAFF PHYSICIAN] - 1 Week Vee Grey MD [STAFF PHYSICIAN] - 1 Week Crissy Saini MD [STAFF PHYSICIAN] - 1 Week Activity/Diet/Wound Care/Special Instructions: Diet: renal, diabetic, cardiac Activity: as tolerated Check CBC, BMP on thursday Discharge Disposition: HOME SELF-CARE
--- NOTE | 2016-07-21 19:05 | PN ---
Patient was seen for follow-up this morning for chronic kidney disease. He was admitted to the hospital with syncope associated with hypoglycemia. Patient was also hypovolemic and he has been diuresed. His chest x-ray did show evidence of pulmonary vascular congestion. Serum creatinine has been at about 4.3 mEq milligrams per deciliter, which is at his baseline. On examination, currently the patient is comfortable, awake, alert and oriented x3. He is not in any acute distress. Blood pressure is 152/59, heart rate 74 per minute. He is afebrile. Examination of the heart S1 and S2. Examination of the lungs: Bilateral breath sounds are heard. ABDOMEN: Soft, nontender. Examination of the lower extremities shows no edema in his right lower extremity. Labs show sodium 139, potassium 5.0, BUN 52, serum creatinine of 4.3 mg/dL, hemoglobin 9.2 g/dL. ASSESSMENT: 1. Chronic kidney disease stage 4 to 5. Renal function close to baseline being listed at [place] [facility]. 2. Status post renal transplant at [place] in 2010. Continue current immunosuppression. 3. Hypoglycemia currently resolved. 4. Fluid overload. Continue to maintain patient on oral Lasix. PLAN: Continue with the Lasix. Follow up as outpatient.
== END 2016-07-21 14:05 | disposition home health service (06) | DRG 637 ==
LOC: EC 20:49 → 6SEL 23:58
PROVIDERS: ADMIT Internal Medicine; ATTEND Internal Medicine
DX: E11.649 Type 2 diabetes mellitus with hypoglycemia without coma (principal); I50.31 Acute diastolic (congestive) heart failure; E43 Unspecified severe protein-calorie malnutrition; J96.12 Chronic respiratory failure with hypercapnia; I42.9 Cardiomyopathy, unspecified; I13.2 Hypertensive heart and chronic kidney disease with heart failure and with stage 5 chronic kidney disease, or end stage renal disease; N17.9 Acute kidney failure, unspecified; F03.90 Unspecified dementia, unspecified severity, without behavioral disturbance, psychotic disturbance, mood disturbance, and anxiety; N18.6 End stage renal disease; E11.21 Type 2 diabetes mellitus with diabetic nephropathy; E11.51 Type 2 diabetes mellitus with diabetic peripheral angiopathy without gangrene; E03.9 Hypothyroidism, unspecified; E11.65 Type 2 diabetes mellitus with hyperglycemia; E78.5 Hyperlipidemia, unspecified; I25.10 Atherosclerotic heart disease of native coronary artery without angina pectoris; I25.2 Old myocardial infarction; I48.0 Paroxysmal atrial fibrillation; I48.2 Chronic atrial fibrillation; K21.9 Gastro-esophageal reflux disease without esophagitis; E11.22 Type 2 diabetes mellitus with diabetic chronic kidney disease; M19.90 Unspecified osteoarthritis, unspecified site; R32 Unspecified urinary incontinence; F41.9 Anxiety disorder, unspecified; R33.9 Retention of urine, unspecified; Z68.1 Body mass index [BMI] 19.9 or less, adult; Z94.0 Kidney transplant status; Z79.01 Long term (current) use of anticoagulants; Z79.4 Long term (current) use of insulin; Z79.02 Long term (current) use of antithrombotics/antiplatelets; Z79.899 Other long term (current) drug therapy; Z87.891 Personal history of nicotine dependence; Z88.5 Allergy status to narcotic agent; Z89.512 Acquired absence of left leg below knee; Z95.1 Presence of aortocoronary bypass graft; Z98.84 Bariatric surgery status; Z99.81 Dependence on supplemental oxygen; Z89.411 Acquired absence of right great toe; Z91.81 History of falling; Z85.828 Personal history of other malignant neoplasm of skin
CPT/HCPCS: 36415; 71010; 71020; 80053; 81001; 82550; 82553; 83036; 83605; 83735; 83880; 84100; 84439; 84443; 84484; 85025; 85610; 85730; 87040; 87086; 87502; 93005; 93306; 96361; 96374; 96375; 99291

== ENCOUNTER → 2016-07-23 | Outpatient (CLI) | payer MEDICARE, BC ==
[2016-07-23 10:40] LABS: CH 31.1; HCT 33.8 % (39.0-53.0); HDW 2.94; HGB 9.8 gm/dL (13.0-17.5); Hypochromasia Marked; MCH 30.3 pg (25.0-35.0); MCV 104.4 fL (80.0-100.0); Macrocytosis Moderate; Mean Platelet Volume 9.3; RBC 3.24 m/uL (4.30-5.90); RDW 15.2 % (11.5-15.5)
[2016-07-23 11:02] LABS: Calcium 8.9 mg/dL (8.4-10.2); Potassium 5.1 mmol/L (3.5-5.1)
== END | disposition home or self-care (01) ==
LOC: LABWHC1 10:09
PROVIDERS: ATTEND Internal Medicine
DX: N18.9 Chronic kidney disease, unspecified (principal); D64.9 Anemia, unspecified
CPT/HCPCS: 36415; 80048; 85027

== ENCOUNTER → 2016-07-31 | Outpatient (CLI) | payer MEDICARE, BC ==
[2016-07-31 09:50] LABS: Basophils % (A) 0 %; CH 30.6; CHCM 30.7; Eosinophils # (A) 0.1 k/uL (0-0.7); Eosinophils % (A) 2 %; HCT 31.6 % (39.0-53.0); HDW 2.94; HGB 9.6 gm/dL (13.0-17.5); Hypochromasia Moderate; Luc % (Auto) 3; Lymphocytes # (A) 0.7 k/uL (1.0-4.8); Lymphocytes % (A) 19 %; MCH 30.6 pg (25.0-35.0); MCHC 30.5 g/dL (31.0-37.0); MCV 100.3 fL (80.0-100.0); Macrocytosis Slight; Mean Platelet Volume 9.9; Monocytes # (A) 0.2 k/uL (0-1.0); Monocytes % (A) 6 %; Neutrophils # (A) 2.6 k/uL (1.3-7.7); Neutrophils % (A) 70 %; RBC 3.15 m/uL (4.30-5.90); RDW 14.6 % (11.5-15.5); WBC 3.8 k/uL (3.8-10.6); WBC (Perox) 4.05
[2016-07-31 09:58] LABS: Calcium 8.9 mg/dL (8.4-10.2); Phosphorous 4.5 mg/dL (2.5-4.5); Uric Acid 7.6 mg/dL (3.5-8.5)
[2016-07-31 10:06] LABS: % Iron Saturation 11.2 % (20-50)
[2016-07-31 10:27] LABS: Appearance,Urine Clear (Clear); Bilirubin,Urine Negative (Negative); Glucose,Urine (UA) Negative (Negative); Ketones,Urine Negative (Negative); Leukocyte Esterase,Urine Negative (Negative); Nitrite,Urine Negative (Negative); Particle Count 447; Protein,Urine 3+ (Negative); RBC,Urine 6 /hpf (0-5); Specific Gravity,Urine 1.012 (1.001-1.035); Squamous Epithelial Cell,Urine <1 /hpf (0-4); UA Billing (MACRO vs. MICRO) MICRO; Urobilinogen,Urine <2.0 mg/dL (<2.0); WBC,Urine 5 /hpf (0-5)
[2016-07-31 10:59] LABS: Hemoglobin A1C 4.8 % (4.2-6.1)
[2016-07-31 11:44] LABS: Creatinine,Urine Random 78.3 mg/dL
== END | disposition home or self-care (01) ==
LOC: LABWHC1 09:04
PROVIDERS: ATTEND Nurse Practitioner Family
DX: E83.42 Hypomagnesemia (principal); N25.81 Secondary hyperparathyroidism of renal origin; N18.3 Chronic kidney disease, stage 3 (moderate); D64.9 Anemia, unspecified; M10.9 Gout, unspecified; N39.0 Urinary tract infection, site not specified; R80.9 Proteinuria, unspecified; E11.9 Type 2 diabetes mellitus without complications
CPT/HCPCS: 36415; 80048; 81001; 82040; 82306; 82570; 82728; 83036; 83540; 83550; 83735; 83970; 84100; 84156; 84550; 85025

== ENCOUNTER → 2016-07-31 | Outpatient (CLI) | payer MEDICARE, BC ==
--- NOTE | 2016-07-31 10:19 | XR ---
EXAMINATION TYPE: XR chest 2V DATE OF EXAM: 07/31/2016 9:52 AM COMPARISON: Chest x-ray from July 21, 2016. HISTORY: Pleural effusions progress study. TECHNIQUE: Frontal and lateral views of the chest are obtained. FINDINGS: Sternal wires and mediastinal clips from CABG procedure are redemonstrated. There is no foc al air space opacity or pneumothorax seen. There is persistent small amount of fluid in the major and minor fissures seen on lateral view improved versus prior. The cardiac silhouette size is stable and within normal limits. The osseous structures are intact. IMPRESSION: Persistent small pleural fluid collections or effusions improved versus prior study.
--- NOTE | 2016-07-31 11:27 | CT ---
EXAMINATION TYPE: CT abdomen pelvis wo con DATE OF EXAM: 07/31/2016 11:13 AM COMPARISON: NONE HISTORY: Pre surgical Renal Transplant CT DLP: 453.8 mGycm Automated exposure control for dose reduction was used. TECHNIQUE: Helical acquisition of images fom the lung bases through the pelvis. FINDINGS: LUNG BASES: Some minimal probable postinflammatory change within the lingula, some patchy density pre sent at the left lung base may reflect postinflammatory change or possibly bronchiectasis with bronch ial wall thickening, difficult to exclude infection. Nodular contour present at the posterior costoph renic angle on the right may reflect some pleural reaction, minimal pleural effusion may be present, patient is post median sternotomy. Distal esophageal thickening may be due to postop change with prom inent esophageal pouch. AORTA: Densely calcified but not aneurysmal, diffuse mesenteric calcified vasculature is present. In ferior vena cava shows a filter with legs extending in each common iliac vein near the confluence. LIVER/GB: Lack of contrast could compromise sensitivity. Dependent high attenuation within the gallbl adder may represent a small stone. Liver shows no evident mass. PANCREAS: No significant abnormality is seen. SPLEEN: No significant abnormality is seen. ADRENALS: No significant abnormality is seen. KIDNEYS: Atrophic there is a right iliac transplant kidney present. There is a stone present within t he kidney, no hydronephrosis, calculus measures 8 mm. REPRODUCTIVE ORGANS: Prostate may be slightly enlarged. URINARY BLADDER: Not distended BOWEL: No significant abnormality is seen. FREE AIR: No Free Air is visible. ASCITES: None visible. PELVIC ADENOPATHY: None visualized. RETROPERITONEAL ADENOPATHY: No Retroperitoneal Adenopathy visible. OSSEOUS STRUCTURES: Degenerative disc changes, spinal curvature noted in the visualized spine IMPRESSION: FINDINGS COMPATIBLE WITH CHRONIC RENAL FAILURE. POSTOP CHANGES. NEPHROLITHIASIS TRANSPLANTED KIDNEY O N THE RIGHT. SUSPECT CHOLELITHIASIS. Additional findings above.
== END | disposition home or self-care (01) ==
LOC: RADCTMAIN 09:31
PROVIDERS: ATTEND Internal Medicine
DX: Z01.818 Encounter for other preprocedural examination (principal); N18.6 End stage renal disease; N20.0 Calculus of kidney; Z76.82 Awaiting organ transplant status; Z98.890 Other specified postprocedural states
CPT/HCPCS: 71020; 74176

== ENCOUNTER → 2016-08-06 | Outpatient (CLI) | payer OTHER | END | disposition home or self-care (01) | LOC: LABWHC1 11:47 | PROVIDERS: ATTEND Internal Medicine Nephrology | DX: Z01.812 Encounter for preprocedural laboratory examination (principal) | CPT/HCPCS: 36415 ==

== ENCOUNTER → 2016-09-09 | Outpatient (CLI) | payer MEDICARE, BC ==
[2016-09-09 09:04] LABS: Appearance,Urine Clear (Clear); Bacteria,Urine Rare /hpf; Bilirubin,Urine Negative (Negative); Glucose,Urine (UA) Negative (Negative); Ketones,Urine Negative (Negative); Leukocyte Esterase,Urine Negative (Negative); Mucus,Urine Rare /hpf; Nitrite,Urine Negative (Negative); Particle Count 749; Protein,Urine 3+ (Negative); RBC,Urine 19 /hpf (0-5); Specific Gravity,Urine 1.013 (1.001-1.035); UA Billing (MACRO vs. MICRO) MICRO; Urobilinogen,Urine <2.0 mg/dL (<2.0); WBC,Urine 8 /hpf (0-5)
[2016-09-09 09:17] LABS: Basophils % (A) 0 %; CH 29.7; CHCM 30.9; Eosinophils % (A) 1 %; HCT 36.5 % (39.0-53.0); HGB 11.3 gm/dL (13.0-17.5); Hypochromasia Moderate; Luc # (Auto) 0.13; Luc % (Auto) 4; Lymphocytes # (A) 1.1 k/uL (1.0-4.8); Lymphocytes % (A) 31 %; Mean Platelet Volume 9.2; Monocytes # (A) 0.3 k/uL (0-1.0); Monocytes % (A) 9 %; Neutrophils # (A) 1.9 k/uL (1.3-7.7); Neutrophils % (A) 54 %; RBC 3.76 m/uL (4.30-5.90); RDW 15.5 % (11.5-15.5); WBC 3.5 k/uL (3.8-10.6); WBC (Perox) 3.62
[2016-09-09 11:53] LABS: Hemoglobin A1C 5.4 % (4.2-6.1)
[2016-09-09 13:34] LABS: Calcium 8.9 mg/dL (8.4-10.2); Magnesium 1.5 mg/dL (1.6-2.3); Phosphorous 4.5 mg/dL (2.5-4.5); Potassium 4.2 mmol/L (3.5-5.1); Uric Acid 8.3 mg/dL (3.5-8.5)
== END | disposition home or self-care (01) ==
LOC: LABWHC1 08:26
PROVIDERS: ATTEND Internal Medicine Nephrology
DX: N18.5 Chronic kidney disease, stage 5 (principal); D50.9 Iron deficiency anemia, unspecified; E55.9 Vitamin D deficiency, unspecified; E21.3 Hyperparathyroidism, unspecified; M10.9 Gout, unspecified; N39.0 Urinary tract infection, site not specified; Z94.0 Kidney transplant status
CPT/HCPCS: 36415; 80048; 80197; 81001; 82040; 82306; 82728; 83036; 83540; 83550; 83735; 83970; 84100; 84550; 85025

== ENCOUNTER 2016-09-15 11:06 | Inpatient (IN) | payer MEDICARE, BC ==
[2016-09-15 12:03] VITALS: BMI 21.9
--- NOTE | 2016-09-15 14:06 | P.HPIM ---
History of Present Illness H&P Date: 09/15/16 Chief Complaint: Cough This is a 61-year-old male with a known past medical history of chronic renal failure with right kidney transplant, congestive heart failure, diabetes mellitus type 2, coronary artery disease with previous coronary bypass grafting , atrial fibrillation in which she is on Coumadin, peripheral vascular disease, DVT of the lower extremity has had [place] filter placed, hypertension and hyperlipidemia. Patient reports that he is been having a productive cough with right shoulder pain. Also having some shortness of breath. He went to see his government relations analyst, Dr. Garzon in the office. Chest x-ray in the office showed a right upper lobe pneumonia per patient. Therefore patient was a direct admit from Dr. Garzon's office. Patient was started on IV Zosyn. Chest x-ray will be obtained here in the hospital. Dr. Garzon will be consulted. Patient does have known chronic kidney disease with renal transplant. He follows Dr. Saini in the office. He is scheduled for a follow-up appointment with her in the office tomorrow. We'll consult Dr. Macedo for evaluation while in hospital. Patient admits to having severe chills and sweats. He denies any nausea or vomiting. Denies any chest pain. Does admit to having some shortness of breath. Denies any bowel movement changes or urinary symptoms. Denies any sick contacts. Denies any generalized muscle aches or pains. He is complaining of a headache behind his right eye. He was seen by his bellows tester last week due to vision changes in both eyes and some tunnel vision in the left eye. Since then patient has had no new changes in his vision. Headache behind the right eye is showing improvement. Patient also been started decrease in appetite since he has not been feeling well. Review of Systems Please refer to HPI otherwise unremarkable Past Medical History Past Medical History: Atrial Fibrillation, Coronary Artery Disease (CAD), Diabetes Mellitus, Dialysis, Deep Vein Thrombosis (DVT), GERD/Reflux, Hyperlipidemia, Hypertension, Myocardial Infarction (MA), Osteoarthritis (OA), Pneumonia, Renal Disease, Skin Disorder, Thyroid Disorder, Vascular Disorder Additional Past Medical History / Comment(s): IN PAST TOOK MEDS FOR HYPERTENSION Last Myocardial Infarction Date:: 2009 History of Any Multi-Drug Resistant Organisms: None Reported Past Surgical History: Adenoidectomy, Bariatric Surgery, Coronary Bypass/CABG, Heart Catheterization, Tonsillectomy Additional Past Surgical History / Comment(s): jamarcus fliter, kidney transplant-2011 has rt kidney,CABG-2010, gastric bypass, RT great toe amputation , [employer], carotid endarterectomy, amputation lt BKA. angioplasty to the popliteal artery and posterior left femoral artery performed by Dr. Fowler on 01-30-15 Past Anesthesia/Blood Transfusion Reactions: No Reported Reaction Additional Past Anesthesia/Blood Transfusion Reaction / Comment(s): HX BLOOD TRANSFUSIONS- NO REACTIONS . Past Psychological History: No Psychological Hx Reported Additional Psychological History / Comment(s): Is medically disabled after his renal transplantation. 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 Past Drug Use History: None Reported - Past Family History Father Family Medical History: Diabetes Mellitus, Dialysis Additional Family Medical History / Comment(s): "big heart", bilat BKA Mother Family Medical History: Cancer Additional Family Medical History / Comment(s): colon Medications and Allergies Home Medications Medication Instructions Recorded Confirmed Type Cholecalciferol [Vitamin D3] 1,000 mg PO BID 05/17/14 09/15/16 History Sodium Bicarbonate Tab 650 mg PO BID 05/17/14 09/15/16 History Tacrolimus [Prograf] 2 mg PO BID 12/06/14 09/15/16 History Magnesium Gluconate [Magonate] 500 mg PO DAILY 02/01/15 09/15/16 History Aspirin EC [Ecotrin Low Dose] 81 mg PO HS 02/12/16 09/15/16 History Atorvastatin [Lipitor] 80 mg PO HS 02/12/16 09/15/16 History Calcitriol 2 mcg PO BID 02/12/16 09/15/16 History Vit C/E/Zn/Coppr/Lutein/Zeaxan 1 cap PO DAILY 02/12/16 09/15/16 History [Preservision Areds 2 Softgel] Temazepam [Restoril] 15 mg PO HS 07/18/16 09/15/16 History INSULIN LISPRO (HumaLOG) [humaLOG] See Protocol SQ ACHS 07/19/16 09/15/16 History Warfarin [Coumadin] 1 mg PO MOTUWETHFRSA 07/19/16 09/15/16 History Warfarin [Coumadin] 2 mg PO AN 07/19/16 09/15/16 History Furosemide [Lasix] 40 mg PO DIRECTED 08/19/16 09/15/16 History Metaforic 360mg 1 tab PO BID 09/15/16 09/15/16 History Allergies Allergy/AdvReac Type Severity Reaction Status Date / Time codeine AdvReac Severe constipatio Verified 09/15/16 12:45 n Physical Exam Vitals: Vital Signs Temp Pulse Resp BP Pulse Ox 09/15/16 11:45 97.7 F 92 20 103/47 99 Intake and Output 09/14/16 09/15/16 09/15/16 22:59 06:59 14:59 Other: Weight 77.564 kg Patient Weight 09/16/16 06:59 Weight 77.564 kg Head normocephalic Neck supple Lungs diminished in the right upper lobe. Otherwise no crackles or wheezing. Heart irregular Abdomen is soft nontender nondistended positive bowel sounds no hepatosplenomegaly Extremities no edema in right leg. Left below-knee amputation Neuro alert and orientated to 3 Thrombosis Risk Factor Assmnt - Choose All That Apply Each Factor Represents 1 point: Acute MA, Age 41-60 years Thrombosis Risk Factor Assessment Total Risk Factor Score: 2 Thrombosis Risk Factor Assessment Level: Low Risk Assessment and Plan Plan: 1. Pneumonia with cough and shortness of breath: Direct admit from pulmonary office. Check chest x-ray. Start patient on IV Zosyn. Consult pulmonary service. 2. Chronic kidney disease stage IV: Consult nephrology. Check CMP. History of right kidney transplant secondary to renal failure from his diabetes mellitus 3. Diabetes mellitus type 2: Check hemoglobin A1c. Place patient on sliding scale coverage. Patient is reporting a decrease in appetite 4. Chronic atrial fibrillation: Anticoagulated with Coumadin. Check PT/INR. Adjust Coumadin as necessary 5. History of morbid obesity status post gastric bypass in the 6. History of peripheral vascular disease secondary to his diabetes mellitus. Patient has required a left below the knee amputation. 7. History of DVT with previous [place] filter placement 8. History of essential hypertension: Blood pressures had shown improvement outpatient. Patient has been off of his blood pressure medications. Blood pressure is currently stable 9. History of coronary artery disease with previous coronary artery bypass grafting 2009 10. Chronic systolic congestive heart failure: No evidence of exacerbation. Echo from July 2016 shows an EF of 45-50%. Continue oral Lasix GI prophylaxis Pepcid and DVT prophylaxis Coumadin Check CBC, CMP, PT/INR and chest x-ray Time with Patient: Greater than 30 (Greater than 50% of the total time spent in counseling and coordination of care.I performed an examination of the patient and discussed their management with the physician Orientation And Mobility Instructor. I have reviewed the Physician Orientation And Mobility Instructor's notes and agree with the documented findings and plan of care)
--- NOTE | 2016-09-15 14:24 | XR ---
EXAMINATION TYPE: XR chest 2V DATE OF EXAM: 09/15/2016 2:03 PM COMPARISON: 07/31/2016 INDICATION: Pneumonia TECHNIQUE: Single frontal view of the chest is obtained. FINDINGS: The heart size is normal. The pulmonary vasculature is normal. There is some nodularity and infiltrate in the right upper lobe. This is new. Correlate for pneumonia . Note is made of a stent within the left upper extremity arterial system IMPRESSION: 1. Right upper lobe infiltrate and nodularity, an interval finding. Correlate for pneumonia. Follow-u p is recommended.
[2016-09-15] MEDS: PIPERACILLIN-TAZOBACTAM 3.375 GM in DEXTROSE/WATER 1 50ML.BAG IVPB SCH ×2 (15:30→23:09)
[2016-09-15] MEDS: SODIUM CHLORIDE 0.9% 1,000 ML IV SCH (15:31)
[2016-09-15] MEDS: SODIUM BICARBONATE TAB 650 MG TAB PO SCH ×2 (15:39→21:28)
[2016-09-15] MEDS: MYCOPHENOLATE SODIUM DR 180 MG TABLET.DR PO SCH ×2 (15:39→21:27)
[2016-09-15] MEDS: predniSONE 5 MG TAB PO SCH (15:40)
[2016-09-15] MEDS: TACROLIMUS 1 MG CAP PO SCH ×2 (15:40→15:42)
[2016-09-15] MEDS: VIT A,C & E-LUTEIN-MINERALS 1 EACH TAB PO SCH (15:41)
[2016-09-15 15:56] LABS: Basophils % (A) 0 %; CH 29.3; CHCM 31.6; Eosinophils % (A) 0 %; HCT 29.7 % (39.0-53.0); HDW 3.26; Hypochromasia Slight; Luc # (Auto) 0.15; Luc % (Auto) 2; Lymphocytes # (A) 0.3 k/uL (1.0-4.8); Lymphocytes % (A) 4 %; MCH 29.9 pg (25.0-35.0); MCV 93.3 fL (80.0-100.0); Mean Platelet Volume 9.5; Monocytes # (A) 0.5 k/uL (0-1.0); Monocytes % (A) 7 %; Neutrophils # (A) 6.4 k/uL (1.3-7.7); Neutrophils % (A) 87 %; RBC 3.19 m/uL (4.30-5.90); RDW 15.5 % (11.5-15.5); WBC 7.4 k/uL (3.8-10.6); WBC (Perox) 7.66
[2016-09-15 15:59] LABS: HGB 9.5 gm/dL (13.0-17.5)
[2016-09-15 16:10] LABS: Calcium 8.3 mg/dL (8.4-10.2); Potassium 3.2 mmol/L (3.5-5.1); Total Bilirubin 0.5 mg/dL (0.2-1.3); Total Protein 4.5 g/dL (6.3-8.2)
[2016-09-15 16:14] LABS: Prothrombin Time 39.6 sec (9.0-12.0)
[2016-09-15 17:11] LABS: Glucose,Whole Blood 161 mg/dL (75-99)
[2016-09-15] MEDS: INSULIN LISPRO (humaLOG) 300 UNIT/3 ML VIAL SQ SCH ×2 (18:30→21:29)
[2016-09-15] MEDS: WARFARIN 1 MG TAB PO SCH (18:30)
[2016-09-15 20:09] LABS: Glucose,Whole Blood 155 mg/dL (75-99)
[2016-09-15] MEDS: ATORVASTATIN 80 MG TAB PO SCH (21:27)
[2016-09-15] MEDS: ASPIRIN 81 MG CHEW PO SCH (21:27)
[2016-09-15] MEDS: CALCITRIOL 0.25 MCG CAP PO SCH (21:27)
[2016-09-15] MEDS: CHOLECALCIFEROL 1,000 UNIT TAB PO SCH (21:28)
[2016-09-15] MEDS: TEMAZEPAM 15 MG CAP PO SCH (23:09)
[2016-09-16 00:45] LABS: Hemoglobin A1C 5.3 % (4.2-6.1)
[2016-09-16 07:40] LABS: Glucose,Whole Blood 79 mg/dL (75-99)
[2016-09-16] MEDS: PIPERACILLIN-TAZOBACTAM 3.375 GM in DEXTROSE/WATER 1 50ML.BAG IVPB SCH ×3 (08:24→23:38)
[2016-09-16] MEDS: CALCITRIOL 0.25 MCG CAP PO SCH ×2 (08:24→20:38)
[2016-09-16] MEDS: INSULIN LISPRO (humaLOG) 300 UNIT/3 ML VIAL SQ SCH ×4 (08:24→20:42)
[2016-09-16] MEDS: TACROLIMUS 1 MG CAP PO SCH ×2 (08:25→20:40)
[2016-09-16] MEDS: MYCOPHENOLATE SODIUM DR 180 MG TABLET.DR PO SCH ×2 (08:25→20:41)
[2016-09-16] MEDS: MAGNESIUM OXIDE 400 MG TAB PO SCH (08:25)
[2016-09-16] MEDS: predniSONE 5 MG TAB PO SCH (08:25)
[2016-09-16] MEDS: SODIUM BICARBONATE TAB 650 MG TAB PO SCH ×2 (08:25→20:38)
[2016-09-16] MEDS: VIT A,C & E-LUTEIN-MINERALS 1 EACH TAB PO SCH (08:26)
[2016-09-16] MEDS: FAMOTIDINE 20 MG TAB PO SCH (08:26)
[2016-09-16] MEDS: CHOLECALCIFEROL 1,000 UNIT TAB PO SCH ×2 (08:26→20:41)
[2016-09-16] MEDS: FUROSEMIDE 40 MG TAB PO SCH (08:26)
[2016-09-16 08:30] LABS: Basophils % (A) 0 %; CH 29.2; CHCM 31.1; Eosinophils % (A) 0 %; HCT 29.2 % (39.0-53.0); HDW 3.26; HGB 9.2 gm/dL (13.0-17.5); Hypochromasia Moderate; Luc # (Auto) 0.23; Luc % (Auto) 3; Lymphocytes # (A) 0.7 k/uL (1.0-4.8); Lymphocytes % (A) 8 %; MCH 29.8 pg (25.0-35.0); MCHC 31.5 g/dL (31.0-37.0); MCV 94.6 fL (80.0-100.0); Mean Platelet Volume 9.8; Monocytes # (A) 0.5 k/uL (0-1.0); Monocytes % (A) 5 %; Neutrophils # (A) 7.2 k/uL (1.3-7.7); Neutrophils % (A) 84 %; RBC 3.09 m/uL (4.30-5.90); RDW 15.5 % (11.5-15.5); WBC 8.6 k/uL (3.8-10.6); WBC (Perox) 8.63
[2016-09-16 08:34] LABS: INR 3.8 (<1.1); Prothrombin Time 37.5 sec (9.0-12.0)
[2016-09-16 08:42] LABS: Calcium 8.6 mg/dL (8.4-10.2); Potassium 3.4 mmol/L (3.5-5.1); Total Bilirubin 0.5 mg/dL (0.2-1.3); Total Protein 4.3 g/dL (6.3-8.2)
[2016-09-16] MEDS: SODIUM CHLORIDE 0.9% 1,000 ML IV SCH (11:05)
[2016-09-16 11:11] LABS: Glucose,Whole Blood 134 mg/dL (75-99)
--- NOTE | 2016-09-16 12:32 | CONS ---
DATE OF CONSULTATION: Reason for consult is renal failure and kidney transplant. HISTORY OF PRESENT ILLNESS: Patient is a 61-year-old white male with history of CKD stage IV, secondary to chronic allograft nephropathy and diabetic nephropathy. Patient is status post donor allograft from 2010 at the [facility]. His baseline creatinine has been at about 3.5 to 4 mg/dL recently and he is looking to reestablish with the transplant center for another transplant. He was admitted to the hospital with complaints of not feeling well, chest pain on breathing on the right side towards the back. He had some chills and there was no obvious fever. He had some cough as well. PAST MEDICAL HISTORY: End stage renal disease, CKD, ( ) coronary artery disease, cerebrovascular disease, diabetes, DVT, gastroesophageal reflux disease, history of underlying pneumonia, hypothyroidism, osteoarthritis, CKD bone mineral disorder, secondary hyperparathyroidism. PAST SURGICAL HISTORY: Coronary artery bypass surgery, donor allograft in [place] in June of 2010 followed by another kidney transplant at the [facility] in November of 2010, multiple transplant biopsies, cataract surgery, right great toe amputation, ( ), left BKA, angioplasty on the left lower extremity by Dr. Araya. SOCIAL HISTORY: Negative for smoking, drug abuse or alcohol abuse. Medications at home prior to admission include Vitamin D3, magnesium, Lipitor, Calcitriol, Coumadin, insulin, Lasix, Myfortic. ALLERGIES: None. REVIEW OF SYSTEMS: As per HPI, other systems negative. On examination, patient is comfortable, awake, alert, oriented x3, not in any acute distress. Blood pressure is 132/51, heart rate 59 per minute. He is afebrile. Examination of the heart, S1 and S2. Examination of the lungs, bilateral breath sounds are heard. Decreased breath sounds in the bases, particularly on the right side. Examination of the lower extremities shows left BKA, no edema noted on his right lower extremity. APPLICATION ENGINEER exam is grossly intact. Labs show sodium 138, potassium 3.4, BUN 26, serum creatinine 3.59, hemoglobin 9.2 g/dL. ASSESSMENT: 1. Chronic kidney disease, NKF stage IV, secondary to chronic allograft nephropathy, renal function at baseline. Continue with the Prograf and Myfortic that patient has been taking. 2. Chronic kidney disease bone mineral disorder, maintained on Rocaltrol. 3. Hypomagnesemia. 4. Possible pneumonia. Chest x-ray shows right upper lobe infiltrate and nodularity. Currently patient is maintained on antibiotics and he states he is feeling better. PLAN: Continue IV fluids. Continue current immunosuppressive medications. Continue oral sodium bicarb. Repeat labs in a.m. consider further imaging of the lungs versus pulmonary evaluation as patient was admitted with pneumonia previously about 2 months ago. I am not sure at that time he had further imaging of his lungs in terms of the CT scan. Thank you for this consultation. Will continue to follow the patient with you during his hospitalization.
[2016-09-16] MEDS ORDERED: ALBUTEROL NEB (CONC) 2.5 MG/0.5 ML INHALATION PRN (12:42)
--- NOTE | 2016-09-16 12:42 | P.CNPUL ---
History of Present Illness Consult date: 09/16/16 Requesting physician: Kyrie Mosquera Reason for consult: dyspnea (Right upper lobe pneumonia), abnormal CXR/CT Chief complaint: Shortness of breath, cough congestion History of present illness: This is a very pleasant 61-year-old gentleman who follows with Dr. Mosquera as his primary care physician. He has a past medical history of coronary artery disease with previous coronary artery bypass grafting, atrial fibrillation anticoagulated with warfarin, diabetes mellitus, DVT with previous Melissa filter placement, GERD, hyperlipidemia, hypothyroidism, right kidney transplant in 2010, left below the knee amputation, right great toe irritation, peripheral vascular disease with angioplasty to the popliteal artery and posterior left femoral artery in 2014. He also follows in our office with Dr. Garzon and he was seen there yesterday for complaints of increasing shortness of breath, cough and congestion. He was found to have a right upper lobe pneumonia and was admitted here for the same. He has been initiated on Zosyn radius in no acute respiratory distress. He is maintaining good O2 saturations in the upper 90s to 100% on room air. He has been afebrile since admission. No leukocytosis. His INR is 3.8. He has acute on chronic renal failure with a creatinine 3.59, chronic anemia current hemoglobin 9.2. Review of Systems 14 point review of system was conducted. All negative other than as mentioned in HPI. Past Medical History Past Medical History: Atrial Fibrillation, Coronary Artery Disease (CAD), Diabetes Mellitus, Dialysis, Deep Vein Thrombosis (DVT), GERD/Reflux, Hyperlipidemia, Hypertension, Myocardial Infarction ([place]), Osteoarthritis (OA), Pneumonia, Renal Disease, Skin Disorder, Thyroid Disorder, Vascular Disorder Additional Past Medical History / Comment(s): IN PAST TOOK MEDS FOR HYPERTENSION Last Myocardial Infarction Date:: 2009 History of Any Multi-Drug Resistant Organisms: None Reported Past Surgical History: Adenoidectomy, Bariatric Surgery, Coronary Bypass/CABG, Heart Catheterization, Tonsillectomy Additional Past Surgical History / Comment(s): melissa fliter, kidney transplant-2010 has rt kidney,CABG-2009, gastric bypass, RT great toe amputation , [employer], carotid endarterectomy, amputation lt BKA. angioplasty to the popliteal artery and posterior left femoral artery performed by Dr. Fowler on 01-30-15 Past Anesthesia/Blood Transfusion Reactions: No Reported Reaction Additional Past Anesthesia/Blood Transfusion Reaction / Comment(s): HX BLOOD TRANSFUSIONS- NO REACTIONS . Past Psychological History: No Psychological Hx Reported Additional Psychological History / Comment(s): Is medically disabled after his renal transplantation. 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 Past Drug Use History: None Reported - Past Family History Father Family Medical History: Diabetes Mellitus, Dialysis Additional Family Medical History / Comment(s): "big heart", bilat BKA Mother Family Medical History: Cancer Additional Family Medical History / Comment(s): colon Medications and Allergies Home Medications Medication Instructions Recorded Confirmed Type Cholecalciferol [Vitamin D3] 1,000 mg PO BID 05/17/14 09/15/16 History Sodium Bicarbonate Tab 650 mg PO BID 05/17/14 09/15/16 History Tacrolimus [Prograf] 2 mg PO BID 12/06/14 09/15/16 History Magnesium Gluconate [Magonate] 500 mg PO DAILY 02/01/15 09/15/16 History Aspirin EC [Ecotrin Low Dose] 81 mg PO HS 02/12/16 09/15/16 History Atorvastatin [Lipitor] 80 mg PO HS 02/12/16 09/15/16 History Calcitriol 2 mcg PO BID 02/12/16 09/15/16 History Vit C/E/Zn/Coppr/Lutein/Zeaxan 1 cap PO DAILY 02/12/16 09/15/16 History [Preservision Areds 2 Softgel] Temazepam [Restoril] 15 mg PO HS 07/18/16 09/15/16 History INSULIN LISPRO (HumaLOG) [humaLOG] See Protocol SQ ACHS 07/19/16 09/15/16 History Warfarin [Coumadin] 1 mg PO [id number] 07/19/16 09/15/16 History Warfarin [Coumadin] 2 mg PO AN 07/19/16 09/15/16 History Furosemide [Lasix] 40 mg PO DIRECTED 08/19/16 09/15/[address] [Myfortic] 360 mg PO BID 09/15/16 09/15/16 History Allergies Allergy/AdvReac Type Severity Reaction Status Date / Time codeine AdvReac Severe constipatio Verified 09/15/16 12:45 n Physical Exam Vitals: Vital Signs Temp Pulse Resp BP Pulse Ox 09/16/16 07:00 97.5 F L 59 L 16 132/51 98 09/15/16 23:05 16 09/15/16 20:40 98.3 F 76 16 128/58 100 09/15/16 16:00 92 20 09/15/16 15:00 98.5 F 79 20 116/49 98 Intake and Output 09/15/16 09/16/16 09/16/16 22:59 06:59 14:59 Intake Total 850 400 Output Total 500 Balance 850 400 -500 Intake: Intake, IV Titration 250 400 Amount Piperacillin-Tazobactam 3 50 .375 gm In Dextrose/Water 1 50ml.bag @ 12.5 mls/hr IVPB Q8HR [facility] Rx#: [id number] Sodium Chloride 0.9% 1, 200 400 000 ml @ 50 mls/hr IV . Q20H [facility] Rx#:[id number] Oral 600 Output: Urine 500 Other: # Voids 1 Weight 77.564 kg GENERAL EXAM: Alert, active, comfortable in no apparent distress. HEAD: Normocephalic. EYES: Normal reaction of pupils, equal size. NOSE: Clear with pink turbinates. THROAT: No erythema or exudates. NECK: No masses, no JVD. CHEST: No chest wall deformity. LUNGS: Equal air entry with no crackles, wheeze, rhonchi or dullness. CVS: S1 and S2 normal with no audible mumurs, regular rhythm. ABDOMEN: No hepatosplenomegaly, normal bowel sounds, no guarding or rigidity. SPINE: No scoliosis or deformity SKIN: No rashes CENTRAL NERVOUS SYSTEM: No focal deficits, tone is normal in all 4 extremities. *Midis: He has a left below the knee amputee. No significant peripheral edema. No cyanosis. Peripheral pulses are intact. Results - Laboratory Findings CBC and BMP: 09/16/16 08:01 09/16/16 08:01 PT/INR, D-dimer PT 37.5 sec (9.0-12.0) H 09/16/16 08:01 INR 3.8 (<1.1) 09/16/16 08:01 Abnormal lab findings: Abnormal Labs 09/15/16 09/15/16 09/15/16 15:26 15:26 15:26 RBC 3.19 L Hgb 9.5 L D Hct 29.7 L Plt Count 127 L Lymphocytes # 0.3 L PT 39.6 H Sodium 134 L Potassium 3.2 L Chloride 109 H Carbon Dioxide 14 L BUN 71 H Creatinine 3.42 H Glucose 113 H POC Glucose (mg/dL) Calcium 8.3 L AST Alkaline Phosphatase 36 L Troponin I Total Protein 4.5 L Albumin 2.4 L 09/15/16 09/15/16 09/15/16 15:26 17:08 20:07 RBC Hgb Hct Plt Count Lymphocytes # PT Sodium Potassium Chloride Carbon Dioxide BUN Creatinine Glucose POC Glucose (mg/dL) 161 H 155 H Calcium AST Alkaline Phosphatase Troponin I 1.130 H* Total Protein Albumin 09/15/16 09/16/16 09/16/16 21:30 08:01 08:01 RBC 3.09 L Hgb 9.2 L Hct 29.2 L Plt Count 113 L Lymphocytes # 0.7 L PT Sodium Potassium 3.4 L Chloride 111 H Carbon Dioxide 16 L BUN 76 H Creatinine 3.59 H Glucose POC Glucose (mg/dL) Calcium AST 15 L Alkaline Phosphatase 36 L Troponin I 1.410 H* Total Protein 4.3 L Albumin 2.2 L 09/16/16 09/16/16 08:01 11:08 RBC Hgb Hct Plt Count Lymphocytes # PT 37.5 H Sodium Potassium Chloride Carbon Dioxide BUN Creatinine Glucose POC Glucose (mg/dL) 134 H Calcium AST Alkaline Phosphatase Troponin I Total Protein Albumin - Diagnostic Findings Chest x-ray: image reviewed (Right upper lobe infiltrate and nodularity.) Assessment and Plan Plan: Pression: #1 Right upper lobe infiltrate/nodularity, suspect gram-negative. #2 Diabetes mellitus. #3 Borderline troponin leak. #4 Acute on chronic renal failure. #5 Right kidney transplant secondary to renal failure from diabetes mellitus. #6 Severe peripheral vascular disease. The patient has a left below the knee amputation. He's had multiple angioplasties of the popliteal artery and left femoral artery. Status post carotid endarterectomy. #7 Coronary artery disease with previous coronary artery bypass grafting in 2009. Left ventricular systolic function 45-50%. #8 Chronic atrial fibrillation anticoagulated with warfarin. #9 History of DVT and previous [place] filter placement. #10 Hypertension. #11 Hyperlipidemia. #12 History of morbid obesity, status post gastric bypass. Plan: The patient was seen and evaluated by Dr. Grey. His chest x-ray and labs were reviewed. We'll continue with his current antibiotics in the form of Zosyn. He is maintaining good O2 saturations in the upper 90s on room air. He is anticoagulated with warfarin. He is on Pepcid for GI prophylaxis. We'll repeat a chest x-ray in the a.m. We'll continue to follow. Time with Patient: Greater than 30
[2016-09-16 13:55] LABS: Appearance,Urine Clear (Clear); Bilirubin,Urine Negative (Negative); Glucose,Urine (UA) Negative (Negative); Ketones,Urine Negative (Negative); Leukocyte Esterase,Urine Negative (Negative); Mucus,Urine Rare /hpf; Nitrite,Urine Negative (Negative); Particle Count 671; Protein,Urine 2+ (Negative); RBC,Urine 5 /hpf (0-5); Specific Gravity,Urine 1.007 (1.001-1.035); UA Billing (MACRO vs. MICRO) MICRO; Urobilinogen,Urine <2.0 mg/dL (<2.0); WBC,Urine 1 /hpf (0-5)
[2016-09-16] MEDS: WARFARIN 1 MG TAB PO SCH (17:09)
[2016-09-16 17:43] LABS: Glucose,Whole Blood 145 mg/dL (75-99)
--- NOTE | 2016-09-16 17:57 | P.PN ---
Subjective Principal diagnosis: pneumonia patient is a 61-year-old male with multiple medical problems who was admitted to [facility] medical floor due to right upper lobe infiltrate he was started on IV Zosyn, he has shown some improvement since admission clinically. Chest x-ray will be repeated in the morning Objective - Vital Signs Vital signs: Vital Signs Temp 97.4 F L 09/16/16 15:00 Pulse 65 09/16/16 15:00 Resp 16 09/16/16 15:00 BP 124/54 09/16/16 15:00 Pulse Ox 99 09/16/16 15:00 Intake & Output 09/15/16 09/16/16 09/16/16 18:59 06:59 18:59 Intake Total 200 1250 360 Output Total 950 Balance 200 1250 -590 Weight 77.564 kg 77.564 kg Intake: Intake, IV Titration 650 Amount Piperacillin-Tazobactam 3 50 .375 gm In Dextrose/Water 1 50ml.bag @ 12.5 mls/hr IVPB Q8HR [facility] Rx#: [id number] Sodium Chloride 0.9% 1, 600 000 ml @ 50 mls/hr IV . Q20H [facility] Rx#:[id number] Oral 200 600 360 Output: Urine 950 Other: # Voids 1 2 - Exam in general patient is alert and oriented 3 in no apparent distress HEENT head normocephalic and atraumatic Neck is supple no JVD no goiter no lymphadenopathy chest exam reveals a scattered crackles bilaterally no wheezing Cardiac exam reveals regular heart sounds no gallops no murmurs Abdomen is soft nontender no organomegaly Extremity exam reveals no edema no cyanosis or clubbing there is chronic left lower extremity amputation - Labs CBC & Chem 7: 09/16/16 08:01 09/16/16 08:01 Labs: Abnormal Lab Results - Last 24 Hours (Table) 09/15/16 09/15/16 09/16/16 Range/Units 20:07 21:30 08:01 RBC 3.09 L (4.30-5.90) m/uL Hgb 9.2 L (13.0-17.5) gm/dL Hct 29.2 L (39.0-53.0) % Plt Count 113 L (150-450) k/uL Lymphocytes # 0.7 L (1.0-4.8) k/uL PT (9.0-12.0) sec Potassium (3.5-5.1) mmol/L Chloride (98-107) mmol/L Carbon Dioxide (22-30) mmol/L BUN (9-20) mg/dL Creatinine (0.66-1.25) mg/dL POC Glucose (mg/dL) 155 H (75-99) mg/dL AST (17-59) U/L Alkaline Phosphatase (38-126) U/L Troponin I 1.410 H* (0.000-0.034) ng/mL Total Protein (6.3-8.2) g/dL Albumin (3.5-5.0) g/dL Urine Protein (Negative) Urine Blood (Negative) Urine Mucus (None) /hpf 09/16/16 09/16/16 09/16/16 Range/Units 08:01 08:01 11:08 RBC (4.30-5.90) m/uL Hgb (13.0-17.5) gm/dL Hct (39.0-53.0) % Plt Count (150-450) k/uL Lymphocytes # (1.0-4.8) k/uL PT 37.5 H (9.0-12.0) sec Potassium 3.4 L (3.5-5.1) mmol/L Chloride 111 H (98-107) mmol/L Carbon Dioxide 16 L (22-30) mmol/L BUN 76 H (9-20) mg/dL Creatinine 3.59 H (0.66-1.25) mg/dL POC Glucose (mg/dL) 134 H (75-99) mg/dL AST 15 L (17-59) U/L Alkaline Phosphatase 36 L (38-126) U/L Troponin I (0.000-0.034) ng/mL Total Protein 4.3 L (6.3-8.2) g/dL Albumin 2.2 L (3.5-5.0) g/dL Urine Protein (Negative) Urine Blood (Negative) Urine Mucus (None) /hpf 09/16/16 09/16/16 Range/Units 12:49 17:42 RBC (4.30-5.90) m/uL Hgb (13.0-17.5) gm/dL Hct (39.0-53.0) % Plt Count (150-450) k/uL Lymphocytes # (1.0-4.8) k/uL PT (9.0-12.0) sec Potassium (3.5-5.1) mmol/L Chloride (98-107) mmol/L Carbon Dioxide (22-30) mmol/L BUN (9-20) mg/dL Creatinine (0.66-1.25) mg/dL POC Glucose (mg/dL) 145 H (75-99) mg/dL AST (17-59) U/L Alkaline Phosphatase (38-126) U/L Troponin I (0.000-0.034) ng/mL Total Protein (6.3-8.2) g/dL Albumin (3.5-5.0) g/dL Urine Protein 2+ H (Negative) Urine Blood Small H (Negative) Urine Mucus Rare H (None) /hpf Assessment and Plan Plan: 1. Pneumonia with cough and shortness of breath: Direct admit from pulmonary office. Check chest x-ray. Start patient on IV Zosyn. Consult pulmonary service. 2. Chronic kidney disease stage IV: Consult nephrology. Check CMP. History of right kidney transplant secondary to renal failure from his diabetes mellitus 3. Diabetes mellitus type 2: Check hemoglobin A1c. Place patient on sliding scale coverage. Patient is reporting a decrease in appetite 4. Chronic atrial fibrillation: Anticoagulated with Coumadin. Check PT/INR. INR is 3.8 today 5. History of morbid obesity status post gastric bypass in the , patient denies any chest pain, troponin was mildly elevated on admission cardiology consult has been requested 6. History of peripheral vascular disease secondary to his diabetes mellitus. Patient has required a left below the knee amputation. 7. History of DVT with previous Melissa filter placement 8. History of essential hypertension: Blood pressures had shown improvement outpatient. Patient has been off of his blood pressure medications. Blood pressure is currently stable 9. History of coronary artery disease with previous coronary artery bypass grafting 2009 10. Chronic systolic congestive heart failure: No evidence of exacerbation. Echo from July 2016 shows an EF of 45-50%. Continue oral Lasix GI prophylaxis Pepcid and DVT prophylaxis patient is on Coumadin
[2016-09-16 20:15] LABS: Glucose,Whole Blood 145 mg/dL (75-99)
[2016-09-16] MEDS: TEMAZEPAM 15 MG CAP PO SCH (20:39)
[2016-09-16] MEDS: ASPIRIN 81 MG CHEW PO SCH (20:40)
[2016-09-16] MEDS: ATORVASTATIN 80 MG TAB PO SCH (20:40)
[2016-09-17 07:10] LABS: Glucose,Whole Blood 81 mg/dL (75-99)
[2016-09-17] MEDS: INSULIN LISPRO (humaLOG) 300 UNIT/3 ML VIAL SQ SCH ×4 (08:48→20:47)
[2016-09-17] MEDS: VIT A,C & E-LUTEIN-MINERALS 1 EACH TAB PO SCH (08:49)
[2016-09-17] MEDS: PIPERACILLIN-TAZOBACTAM 3.375 GM in DEXTROSE/WATER 1 50ML.BAG IVPB SCH ×2 (08:49→16:05)
[2016-09-17] MEDS: MYCOPHENOLATE SODIUM DR 180 MG TABLET.DR PO SCH ×2 (08:50→20:48)
[2016-09-17] MEDS: MAGNESIUM OXIDE 400 MG TAB PO SCH (08:50)
[2016-09-17] MEDS: predniSONE 5 MG TAB PO SCH (08:50)
[2016-09-17] MEDS: SODIUM BICARBONATE TAB 650 MG TAB PO SCH ×2 (08:50→20:48)
[2016-09-17] MEDS: TACROLIMUS 1 MG CAP PO SCH ×2 (08:50→20:49)
[2016-09-17] MEDS: CHOLECALCIFEROL 1,000 UNIT TAB PO SCH ×2 (08:51→20:47)
[2016-09-17] MEDS: CALCITRIOL 0.25 MCG CAP PO SCH ×2 (08:51→20:45)
[2016-09-17] MEDS: FAMOTIDINE 20 MG TAB PO SCH (08:51)
--- NOTE | 2016-09-17 10:27 | XR ---
EXAMINATION TYPE: XR chest 1V portable DATE OF EXAM: 09/17/2016 10:10 AM CLINICAL HISTORY: Difficulty breathing progress study. TECHNIQUE: Single AP portable upright view of the chest is obtained. COMPARISON: Chest x-ray from 2 days earlier. FINDINGS: Sternal wires and mediastinal clips are redemonstrated. Cardiac silhouette size is prominen t but still within normal limits with atherosclerotic thoracic aorta present. There is persistent pat sophia right upper lobe opacity. There is new left basilar linear atelectasis. There is probable small b ilateral pleural effusions remaining present. Osseous structures are intact. Vascular stent left axil kevin region is redemonstrated. IMPRESSION: Persistent patchy right upper lobe infiltrate noted.
[2016-09-17 11:10] LABS: INR 3.1 (<1.1); Prothrombin Time 29.7 sec (9.0-12.0)
[2016-09-17 11:11] LABS: Glucose,Whole Blood 99 mg/dL (75-99)
[2016-09-17 11:28] LABS: Calcium 8.7 mg/dL (8.4-10.2); Potassium 3.5 mmol/L (3.5-5.1)
--- NOTE | 2016-09-17 12:07 | CONS ---
DATE OF CONSULTATION: Mr. Keller is a 61-year-old gentleman who is seen for the cardiac evaluation. This patient was seen by Dr. Garzon. Patient had been having some symptoms of shortness of breath, cough, congestion, and patient also had a right shoulder pain. Patient's oxygen saturation was in the upper 90s on the room air. Patient was admitted with pneumonia. He has been afebrile. Denies any chills. We were requested to see the patient in consultation because of the abnormal troponin. This patient has a history of multiple medical problems, known history of coronary artery disease, prior history of coronary artery bypass surgery, atrial fibrillation, diabetes, history of DVT with prior [place] placement, hypothyroidism and hypothyroid. Patient also has a prior history of kidney transplant and peripheral vascular disease. Patient is being considered for repeat kidney transplant. This patient recently has been through a complete cardiac evaluation in our office including stress test which was normal. Patient is not having any symptoms of angina. Past medical history includes a history of appendectomy, bariatric surgery, coronary artery bypass surgery, prior history of cardiac catheterization and tonsillectomy. Patient also has a history of carotid endarterectomy, amputation below-knee, angioplasty to the popliteal artery and posterior left femoral artery performed by Dr. Araya. Patient's home medications include Prograf, Lipitor, Restoril, Coumadin, Lasix 40 mg daily, mycophenolate. Physical examination at present reveals a 61-year-old gentleman who does not appear to be in any acute distress at present. Patient's blood pressure is 140/90 mmHg. HEENT examination is negative. Neck is supple. There is no increase in jugular venous pressure. Both the carotid pulses are felt. There is no bruit. Chest is symmetrical. HEART: The PMI is not felt. First and second heart sounds are normal. Lungs are clinically clear to auscultation and percussion. Abdomen is soft. Liver and spleen are not enlarged. EXTREMITIES: Patient has an amputation. Patient's laboratory tests show hemoglobin is 9.2, electrolytes are normal, creatinine is 3.59. Patient's initial troponin was 1.41, second troponin is 1.1. EKG was normal without any acute ischemic changes. This patient is primarily admitted with symptoms of pneumonia. Patient has a diffuse peripheral vascular disease with a history of coronary artery bypass surgery and peripheral vascular disease. Patient did not have any chest discomfort suggestive of angina. First EKG is normal. We will repeat the second EKG, Echo and Doppler study will be done to rule out any new wall motion abnormality. At this point in time, this abnormal troponin is probably secondary to type 2 myocardial injury because of supply and demand mismatch and hypoxia. We will continue the patient on Lipitor 80 mg daily and I will start the patient on Lopressor 25 mg b.i.d.
--- NOTE | 2016-09-17 12:10 | CDI ---
In responding to this query, please exercise your independent professional judgment. The [facility] Coding Staff and Clinical Documentation Specialists appreciate your assistance in clarifying documentation, maintaining compliance with coding guidelines, accurately documenting patients condition and capturing severity of illness. The fact that a question is asked does not imply that any particular answer is desired or expected. Communication forms are a method of clarifying documentation and are not made part of the Legal Health Record. Thank you in advance for your clarification. Last Revision, April 2015 Janethyelena Perez [address] [facility] [place] [address] Documentation Clarification Form Date: 09/17/2016 From: LANDY Abrams, CCDS Admit Date: 09/15/2016 Patient Name: Ike Keller Visit Number: [id number] Dr Kyrie Mosquera Pneumonia was documented in your notes on 09/15/2016 and 09/16/2016. History/Risk Factors: DM type 2 Renal failure with kidney transplant PO Prograf Clinical Indicators: On 09/16 Pulmonary documented 'infiltrate....suspect gram negative' X-ray: rul infiltrate Treatment: Antibiotics: IV Zosyn IV fluids In order to capture the severity of condition, please clarify if the condition signifies and you are treating for: Bacterial Pneumonia, specify causal organism (if known) Gram Negative Pneumonia Other bacteria (please specify) Viral Pneumonia, specify casual organism (if known) Unable to determine Please document in your progress notes and discharge summary in order to capture severity of illness and risk of mortality. Include clinical findings that support your diagnosis. FYI: Press F11 to launch patient chart. Place X here if this finding has no clinical significance, is not applicable or if you are not able to provide any additional documentation. EVE
[2016-09-17] MEDS: METOPROLOL TARTRATE 25 MG TAB PO SCH ×2 (12:27→22:56)
--- NOTE | 2016-09-17 12:28 | P.PN ---
Subjective This is a very pleasant 61-year-old gentleman who follows with Dr. Mosquera as his primary care physician. He has a past medical history of coronary artery disease with previous coronary artery bypass grafting, atrial fibrillation anticoagulated with warfarin, diabetes mellitus, DVT with previous [place] filter placement, GERD, hyperlipidemia, hypothyroidism, right kidney transplant in 2010, left below the knee amputation, right great toe irritation, peripheral vascular disease with angioplasty to the popliteal artery and posterior left femoral artery in 2014. He also follows in our office with Dr. Garzon and he was seen there yesterday for complaints of increasing shortness of breath, cough and congestion. He was found to have a right upper lobe pneumonia and was admitted here for the same. He has been initiated on Zosyn radius in no acute respiratory distress. He is maintaining good O2 saturations in the upper 90s to 100% on room air. He has been afebrile since admission. No leukocytosis. His INR is 3.8. He has acute on chronic renal failure with a creatinine 3.59, chronic anemia current hemoglobin 9.2. The patient is seen again today 09/17/2016 in follow-up in the regular medical floor. He is awake and alert in no acute distress. He states he is breathing easier today as compared to yesterday. He's been up ambulating with assistance. His chest x-ray does reveal persistent patchy right upper lobe infiltrate. He did have a troponin leak and cardiology was consulted. His EKG shows no acute ST or T-wave abnormalities. Echocardiogram is pending. He denies any chest pain, palpitations lightheadedness or dizziness. Objective - Vital Signs Vital signs: Vital Signs Temp 97.7 F 09/17/16 07:00 Pulse 69 09/17/16 07:00 Resp 20 09/17/16 07:00 BP 141/90 09/17/16 07:00 Pulse Ox 100 09/17/16 07:00 Intake & Output 09/16/16 09/17/16 09/17/16 18:59 06:59 18:59 Intake Total 360 222 Output Total 950 1025 Balance -590 -803 Weight 77.564 kg Intake: Oral 360 222 Output: Urine 950 1025 Other: # Voids 2 - Exam GENERAL EXAM: Alert, active, comfortable in no apparent distress. HEAD: Normocephalic. EYES: Normal reaction of pupils, equal size. NOSE: Clear with pink turbinates. THROAT: No erythema or exudates. NECK: No masses, no JVD. CHEST: No chest wall deformity. LUNGS: Equal air entry with no crackles, wheeze, rhonchi or dullness. CVS: S1 and S2 normal with no audible mumurs, regular rhythm. ABDOMEN: No hepatosplenomegaly, normal bowel sounds, no guarding or rigidity. SPINE: No scoliosis or deformity SKIN: No rashes CENTRAL NERVOUS SYSTEM: No focal deficits, tone is normal in all 4 extremities. *Midis: He has a left below the knee amputee. No significant peripheral edema. No cyanosis. Peripheral pulses are intact. - Labs CBC & Chem 7: 09/16/16 08:01 09/17/16 10:34 Labs: Abnormal Lab Results - Last 24 Hours (Table) 09/16/16 09/16/16 09/16/16 Range/Units 12:49 17:42 20:13 PT (9.0-12.0) sec Chloride (98-107) mmol/L Carbon Dioxide (22-30) mmol/L BUN (9-20) mg/dL Creatinine (0.66-1.25) mg/dL POC Glucose (mg/dL) 145 H 145 H (75-99) mg/dL Urine Protein 2+ H (Negative) Urine Blood Small H (Negative) Urine Mucus Rare H (None) /hpf 09/17/16 09/17/16 Range/Units 10:34 10:34 PT 29.7 H (9.0-12.0) sec Chloride 111 H (98-107) mmol/L Carbon Dioxide 16 L (22-30) mmol/L BUN 70 H (9-20) mg/dL Creatinine 3.90 H (0.66-1.25) mg/dL POC Glucose (mg/dL) (75-99) mg/dL Urine Protein (Negative) Urine Blood (Negative) Urine Mucus (None) /hpf Assessment and Plan Plan: Pression: #1 Right upper lobe infiltrate/nodularity, suspect gram-negative. #2 Diabetes mellitus. #3 Borderline troponin leak. #4 Acute on chronic renal failure. #5 Right kidney transplant secondary to renal failure from diabetes mellitus. #6 Severe peripheral vascular disease. The patient has a left below the knee amputation. He's had multiple angioplasties of the popliteal artery and left femoral artery. Status post carotid endarterectomy. #7 Coronary artery disease with previous coronary artery bypass grafting in 2010. Left ventricular systolic function 45-50%. #8 Chronic atrial fibrillation anticoagulated with warfarin. #9 History of DVT and previous Melissa filter placement. #10 Hypertension. #11 Hyperlipidemia. #12 History of morbid obesity, status post gastric bypass. Plan: The patient was seen and evaluated by Dr. Grey. His chest x-ray and labs were reviewed. We'll continue with his current antibiotics in the form of Zosyn. He is maintaining good O2 saturations in the upper 90s on room air. We will increase his activity as tolerated. We'll continue to follow.
[2016-09-17] MEDS: SODIUM CHLORIDE 0.9% 1,000 ML IV SCH (13:23)
--- NOTE | 2016-09-17 14:29 | PN ---
Patient is seen for followup for post transplant care. He was admitted to the hospital with some shortness of breath and pleuritic chest pain, currently being treated for pneumonia. The patient has been evaluated by Pulmonary. He did have an episode of pneumonia about 2 months ago. Renal function is at baseline. Overall, the patient states he is feeling better. On examination today, blood pressure is 148/63, heart rate 68 per minute. He is afebrile. Examination of the, heart S1 and S2. Examination of the lungs, bilateral breath sounds are heard. Abdomen is soft, nontender. Examination of the lower extremities shows no evidence of edema. Patient has a the left BKA. COMPUTER SYSTEMS ANALYST exam is grossly intact. Labs show sodium 140, potassium 3.5, creatinine 3.9, BUN at 70. ASSESSMENT: 1. 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 Patient is maintained on IV fluids, which we can continue. 2. Pneumonia with chest x-ray showing right upper lobe infiltrate/nodularity, being followed by Pulmonary. Consider a CT scan of the chest. Patient had a previous abdominal CT in July, but I do not see any CT of the lungs. 3. Status post donor transplant in 2010 at [place]. Continue current ( ) medications. 4. Peripheral vascular disease, status post left below-knee amputation. 5. Acute kidney injury. Continue with IV fluids. May need to increase rate depending on the labs tomorrow. PLAN: Continue IV fluids. Repeat labs in the a.m. Follow up with Cardiology. Patient had a history of coronary artery disease and has had coronary artery bypass surgery.
[2016-09-17 17:14] LABS: Glucose,Whole Blood 182 mg/dL (75-99)
[2016-09-17] MEDS: WARFARIN 1 MG TAB PO SCH (17:52)
--- NOTE | 2016-09-17 19:02 | P.PN ---
Subjective Principal diagnosis: pneumonia patient is a 61-year-old male with multiple medical problems who was admitted to [facility] medical floor due to right upper lobe infiltrate he was started on IV Zosyn, he has shown some improvement since admission clinically. Chest x-ray shows persistent right upper lobe infiltrate. Objective - Vital Signs Vital signs: Vital Signs Temp 97.8 F 09/17/16 15:00 Pulse 64 09/17/16 15:00 Resp 18 09/17/16 15:00 BP 130/56 09/17/16 15:00 Pulse Ox 100 09/17/16 15:00 Intake & Output 09/17/16 09/17/16 09/18/16 06:59 18:59 06:59 Intake Total 222 Output Total 1025 Balance -803 Intake: Oral 222 Output: Urine 1025 Other: # Voids 2 - Exam in general patient is alert and oriented 3 in no apparent distress HEENT head normocephalic and atraumatic Neck is supple no JVD no goiter no lymphadenopathy chest exam reveals a scattered crackles bilaterally no wheezing Cardiac exam reveals regular heart sounds no gallops no murmurs Abdomen is soft nontender no organomegaly Extremity exam reveals no edema no cyanosis or clubbing there is chronic left lower extremity amputation - Labs CBC & Chem 7: 09/16/16 08:01 09/17/16 10:34 Labs: Abnormal Lab Results - Last 24 Hours (Table) 09/16/16 09/17/16 09/17/16 Range/Units 20:13 10:34 10:34 PT 29.7 H (9.0-12.0) sec Chloride 111 H (98-107) mmol/L Carbon Dioxide 16 L (22-30) mmol/L BUN 70 H (9-20) mg/dL Creatinine 3.90 H (0.66-1.25) mg/dL POC Glucose (mg/dL) 145 H (75-99) mg/dL 09/17/16 Range/Units 17:05 PT (9.0-12.0) sec Chloride (98-107) mmol/L Carbon Dioxide (22-30) mmol/L BUN (9-20) mg/dL Creatinine (0.66-1.25) mg/dL POC Glucose (mg/dL) 182 H (75-99) mg/dL Assessment and Plan Plan: 1. Pneumonia with cough and shortness of breath: Direct admit from pulmonary office. Check chest x-ray. Start patient on IV Zosyn. Consult pulmonary service. 2. Chronic kidney disease stage IV: Consult nephrology. Check CMP. History of right kidney transplant secondary to renal failure from his diabetes mellitus 3. Diabetes mellitus type 2: Check hemoglobin A1c. Place patient on sliding scale coverage. Patient is reporting a decrease in appetite 4. Chronic atrial fibrillation: Anticoagulated with Coumadin. Check PT/INR. 5. History of morbid obesity status post gastric bypass in the , patient denies any chest pain, troponin was mildly elevated on admission cardiology consult has been requested 6. History of peripheral vascular disease secondary to his diabetes mellitus. Patient has required a left below the knee amputation. 7. History of DVT with previous [place] filter placement 8. History of essential hypertension: Blood pressures had shown improvement outpatient. Patient has been off of his blood pressure medications. Blood pressure is currently stable 9. History of coronary artery disease with previous coronary artery bypass grafting 2009 10. Chronic systolic congestive heart failure: No evidence of exacerbation. Echo from July 2016 shows an EF of 45-50%. Continue oral Lasix GI prophylaxis Pepcid and DVT prophylaxis patient is on Coumadin
[2016-09-17] MEDS: TEMAZEPAM 15 MG CAP PO SCH (20:43)
[2016-09-17] MEDS: ATORVASTATIN 80 MG TAB PO SCH (20:44)
[2016-09-17] MEDS: ASPIRIN 81 MG CHEW PO SCH (20:44)
[2016-09-17 20:45] LABS: Glucose,Whole Blood 104 mg/dL (75-99)
[2016-09-18] MEDS: PIPERACILLIN-TAZOBACTAM 3.375 GM in DEXTROSE/WATER 1 50ML.BAG IVPB SCH ×2 (00:09→08:21)
[2016-09-18] MEDS: SODIUM CHLORIDE 0.9% 1,000 ML IV SCH ×2 (04:14→08:21)
[2016-09-18 07:23] LABS: Glucose,Whole Blood 107 mg/dL (75-99)
[2016-09-18 07:34] LABS: INR 3.6 (<1.1); Prothrombin Time 35.3 sec (9.0-12.0)
[2016-09-18 07:36] LABS: Basophils % (A) 0 %; CH 29.2; Eosinophils % (A) 0 %; HCT 31.1 % (39.0-53.0); HDW 3.15; HGB 9.2 gm/dL (13.0-17.5); Hypochromasia Marked; Luc # (Auto) 0.09; Luc % (Auto) 2; Lymphocytes # (A) 0.5 k/uL (1.0-4.8); Lymphocytes % (A) 9 %; MCH 28.8 pg (25.0-35.0); MCHC 29.4 g/dL (31.0-37.0); MCV 97.9 fL (80.0-100.0); Macrocytosis Slight; Monocytes # (A) 0.3 k/uL (0-1.0); Monocytes % (A) 5 %; Neutrophils # (A) 4.6 k/uL (1.3-7.7); Neutrophils % (A) 84 %; RBC 3.18 m/uL (4.30-5.90); RDW 15.6 % (11.5-15.5); WBC 5.4 k/uL (3.8-10.6); WBC (Perox) 5.97
[2016-09-18 07:41] LABS: Calcium 8.5 mg/dL (8.4-10.2); Potassium 3.6 mmol/L (3.5-5.1); Total Bilirubin 0.4 mg/dL (0.2-1.3); Total Protein 4.4 g/dL (6.3-8.2)
[2016-09-18] MEDS: INSULIN LISPRO (humaLOG) 300 UNIT/3 ML VIAL SQ SCH (08:08)
[2016-09-18] MEDS: FUROSEMIDE 40 MG TAB PO SCH (08:22)
[2016-09-18] MEDS: METOPROLOL TARTRATE 25 MG TAB PO SCH (08:22)
[2016-09-18] MEDS: FAMOTIDINE 20 MG TAB PO SCH (08:22)
[2016-09-18] MEDS: SODIUM BICARBONATE TAB 650 MG TAB PO SCH (08:22)
[2016-09-18] MEDS: MAGNESIUM OXIDE 400 MG TAB PO SCH (08:22)
[2016-09-18] MEDS: predniSONE 5 MG TAB PO SCH (08:22)
[2016-09-18] MEDS: CHOLECALCIFEROL 1,000 UNIT TAB PO SCH (08:22)
[2016-09-18] MEDS: VIT A,C & E-LUTEIN-MINERALS 1 EACH TAB PO SCH (08:53)
[2016-09-18] MEDS: MYCOPHENOLATE SODIUM DR 180 MG TABLET.DR PO SCH (08:53)
[2016-09-18] MEDS: TACROLIMUS 1 MG CAP PO SCH (08:53)
[2016-09-18 09:10] VITALS: BP 123/51; PULSE 63; RESP 20; TEMP 97.8
--- NOTE | 2016-09-18 09:14 | CDI ---
In responding to this query, please exercise your independent professional judgment. The [facility] Coding Staff and Clinical Documentation Specialists appreciate your assistance in clarifying documentation, maintaining compliance with coding guidelines, accurately documenting patients condition and capturing severity of illness. The fact that a question is asked does not imply that any particular answer is desired or expected. Communication forms are a method of clarifying documentation and are not made part of the Legal Health Record. Thank you in advance for your clarification. Last Revision, April 2015 Janethyelena Perez [address] [place] [address] Documentation Clarification Form Date: 09/18/2016 From: LANDY Abrams, CCDS Admit Date: 09/15/2016 Patient Name: Ike Keller Visit Number: [id number] Dr Kyrie Mosquera Pneumonia was documented in your notes on 09/15/2016 and 09/16/2016. History/Risk Factors: DM type 2 Renal failure with kidney transplant PO Prograf Clinical Indicators: On 09/16 Pulmonary documented 'infiltrate....suspect gram negative' X-ray: rul infiltrate Treatment: Antibiotics: IV Zosyn IV fluids In order to capture the severity of condition, please clarify if the condition signifies and you are treating for: Bacterial Pneumonia, specify causal organism (if known) Gram Negative Pneumonia Other bacteria (please specify) Viral Pneumonia, specify casual organism (if known) Unable to determine Please document in your progress notes and discharge summary in order to capture severity of illness and risk of mortality. Include clinical findings that support your diagnosis. FYI: Press F11 to launch patient chart. Place X here if this finding has no clinical significance, is not applicable or if you are not able to provide any additional documentation. EVE
--- NOTE | 2016-09-18 10:26 | ECHOF ---
Referral Reason:elevated troponin MEASUREMENTS -------- HEIGHT: 188.0 cm WEIGHT: 77.6 kg BP: 141/90 RVIDd: 3.3 cm (< 3.3) IVSd: 1.3 cm (0.6 - 1.1) LVIDd: 5.4 cm (3.9 - 5.3) LVPWd: 1.3 cm (0.6 - 1.1) IVSs: 2.1 cm LVIDs: 4.9 cm LVPWs: 1.6 cm LA Diam: 4.7 cm (2.7 - 3.8) LAESV Index (A-L): 58.12 ml/m Ao Diam: 3.8 cm (2.0 - 3.7) AV Cusp: 1.6 cm (1.5 - 2.6) LA Diam: 4.0 cm (2.7 - 3.8) MV EXCURSION: 16.486 mm (> 18.000) MV EF SLOPE: 41 mm/s (70 - 150) EPSS: 0.7 cm MV E Bonilla: 0.65 m/s MV DecT: 244 ms MV A Bonilla: 1.07 m/s MV E/A Ratio: 0.60 AV maxP.82 mmHg AV meanP.48 mmHg RAP: 5.00 mmHg RVSP: 20.89 mmHg FINDINGS -------- Sinus rhythm. This was a technically good study. There is mild concentric left ventricular hypertrophy. Overall left ventricular systolic function is mildly impaired with, an EF between 45 - 50 %. Basal inferior LV wall motion is hypokinetic. Basal inferoseptal LV wall motion is hypokinetic. The right ventricle is mildly enlarged. LA is severely dilated >40 ml/m2 The right atrium is normal in size. Aortic valve is trileaflet and is mildly thickened. There is mild aortic regurgitation. Peak/mean gradient across the Aortic Valve is 16.82mmHg / 8.48mmHg. The mitral valve leaflets are mild to moderately thickened. Moderate mitral annular calcification present. Mild mitral regurgitation is present. The peak and mean MV gradients are 4.32mmHg 1.94mmHg as measured by doppler. Mild tricuspid regurgitation present. The right ventricular systolic pressure, as measured by Doppler, is 20.89mmHg. Pulmonic valve appears structurally normal. The aortic root size is normal. Normal inferior vena cava with normal inspiratory collapse consistent with estimated right atrial pressure of 5 mmHg. There is no pericardial effusion. CONCLUSIONS -------- 1. Sinus rhythm. 2. Aortic valve is trileaflet and is mildly thickened. 3. There is mild aortic regurgitation. 4. Peak/mean gradient across the Aortic Valve is 16.82mmHg / 8.48mmHg. 5. The mitral valve leaflets are mild to moderately thickened. 6. Moderate mitral annular calcification present. 7. Mild mitral regurgitation is present. 8. The peak and mean MV gradients are 4.32mmHg 1.94mmHg as measured by doppler. 9. Mild tricuspid regurgitation present. 10. The right ventricular systolic pressure, as measured by Doppler, is 20.89mmHg. 11. Pulmonic valve appears structurally normal. 12. This was a technically good study. 13. The aortic root size is normal. 14. Normal inferior vena cava with normal inspiratory collapse consistent with estimated right atrial pressure of 5 mmHg. 15. There is no pericardial effusion. 16. There is mild concentric left ventricular hypertrophy. 17. Overall left ventricular systolic function is mildly impaired with, an EF between 45 - 50 %. 18. Basal inferior LV wall motion is hypokinetic. 19. Basal inferoseptal LV wall motion is hypokinetic. 20. The right ventricle is mildly enlarged. 21. LA is severely dilated >40 ml/m2 22. The right atrium is normal in size. PICKUP DRIVER: Jaciel Garcia RDCS
--- NOTE | 2016-09-18 10:39 | P.PN ---
Subjective pneumonia patient is a 61-year-old male with multiple medical problems who was admitted to [facility] medical floor due to right upper lobe infiltrate he was started on IV Zosyn, he has shown some improvement since admission clinically. Chest x-ray shows persistent right upper lobe infiltrate. Patient reports improvement in his cough and shortness of breath as well as right shoulder pain. Denies any chest pain. Denies any nausea or vomiting. Having regular bowel movements. Denies any difficulty urinating. Objective - Vital Signs Vital signs: Vital Signs Temp 97.8 F 09/18/16 07:00 Pulse 63 09/18/16 07:00 Resp 20 09/18/16 07:00 BP 123/51 09/18/16 07:00 Pulse Ox 99 09/18/16 07:00 Intake & Output 09/17/16 09/18/16 09/18/16 18:59 06:59 18:59 Intake Total 722 Output Total 400 Balance 322 Intake: Intake, IV Titration 500 Amount Sodium Chloride 0.9% 1, 500 000 ml @ 50 mls/hr IV . Q20H [facility] Rx#:[id number] Oral 222 Output: Urine 400 Other: # Voids 2 2 - Exam Head normocephalic Neck supple Lungs clear to auscultation bilaterally no wheezing or crackles Heart regular rate and rhythm S1-S2, no rub or gallop Abdomen is soft nontender nondistended positive bowel sounds no hepatosplenomegaly Extremities no edema Neuro alert and orientated to 3 - Labs CBC & Chem 7: 09/18/16 07:03 09/18/16 07:03 Labs: Abnormal Lab Results - Last 24 Hours (Table) 09/17/16 09/17/16 09/17/16 Range/Units 10:34 10:34 17:05 RBC (4.30-5.90) m/uL Hgb (13.0-17.5) gm/dL Hct (39.0-53.0) % MCHC (31.0-37.0) g/dL RDW (11.5-15.5) % Plt Count (150-450) k/uL Lymphocytes # (1.0-4.8) k/uL PT 29.7 H (9.0-12.0) sec Chloride 111 H (98-107) mmol/L Carbon Dioxide 16 L (22-30) mmol/L BUN 70 H (9-20) mg/dL Creatinine 3.90 H (0.66-1.25) mg/dL POC Glucose (mg/dL) 182 H (75-99) mg/dL Alkaline Phosphatase (38-126) U/L Total Protein (6.3-8.2) g/dL Albumin (3.5-5.0) g/dL 09/17/16 09/18/16 09/18/16 Range/Units 20:37 07:03 07:03 RBC 3.18 L (4.30-5.90) m/uL Hgb 9.2 L (13.0-17.5) gm/dL Hct 31.1 L (39.0-53.0) % MCHC 29.4 L (31.0-37.0) g/dL RDW 15.6 H (11.5-15.5) % Plt Count 121 L (150-450) k/uL Lymphocytes # 0.5 L (1.0-4.8) k/uL PT 35.3 H (9.0-12.0) sec Chloride (98-107) mmol/L Carbon Dioxide (22-30) mmol/L BUN (9-20) mg/dL Creatinine (0.66-1.25) mg/dL POC Glucose (mg/dL) 104 H (75-99) mg/dL Alkaline Phosphatase (38-126) U/L Total Protein (6.3-8.2) g/dL Albumin (3.5-5.0) g/dL 09/18/16 09/18/16 Range/Units 07:03 07:09 RBC (4.30-5.90) m/uL Hgb (13.0-17.5) gm/dL Hct (39.0-53.0) % MCHC (31.0-37.0) g/dL RDW (11.5-15.5) % Plt Count (150-450) k/uL Lymphocytes # (1.0-4.8) k/uL PT (9.0-12.0) sec Chloride 114 H (98-107) mmol/L Carbon Dioxide 17 L (22-30) mmol/L BUN 70 H (9-20) mg/dL Creatinine 3.85 H (0.66-1.25) mg/dL POC Glucose (mg/dL) 107 H (75-99) mg/dL Alkaline Phosphatase 36 L (38-126) U/L Total Protein 4.4 L (6.3-8.2) g/dL Albumin 2.3 L (3.5-5.0) g/dL Assessment and Plan Plan: 1. Pneumonia with cough and shortness of breath: Likely a gram-negative pneumonia. Continue IV Zosyn. Pulmonary service following. 2. Acute on Chronic kidney disease stage IV: nephrology following. Continue IV fluids. History of right kidney transplant secondary to renal failure from his diabetes mellitus 3. Diabetes mellitus type 2: Check hemoglobin A1c 5.3. Place patient on sliding scale coverage. 4. Chronic atrial fibrillation: Anticoagulated with Coumadin. INR 3.6. Hold Coumadin tonight. Resume tomorrow. Check PT/INR 5. History of morbid obesity status post gastric bypass in the 6. History of peripheral vascular disease secondary to his diabetes mellitus. Patient has required a left below the knee amputation. 7. History of DVT with previous Melissa filter placement 8. History of essential hypertension: Blood pressures had shown improvement outpatient. Patient has been off of his blood pressure medications. Blood pressure is currently stable 9. History of coronary artery disease with previous coronary artery bypass grafting 2009 10. Chronic systolic congestive heart failure: No evidence of exacerbation. Echo from July 2016 shows an EF of 45-50%. Continue oral Lasix 11. Elevated troponin: Evaluated by cardiology and felt to secondary to type 2 myocardial injury because of supply and demand mismatch and hypoxia. Cardiology started patient on Lopressor 25 mg twice a day. Awaiting echo results Anticipate discharge possibly tomorrow GI prophylaxis Pepcid and DVT prophylaxis Coumadin
[2016-09-18 11:55] LABS: Glucose,Whole Blood 101 mg/dL (75-99)
--- NOTE | 2016-09-18 12:49 | P.DS ---
Providers Date of admission: 09/15/16 11:35 Expected date of discharge: 09/18/16 Attending physician: Kyrie Mosquera Consults: 09/15/16 13:42 Consult Physician Routine Consulting Provider: Guanakito Garzon Consult Reason/Comments: pneumonia Do you want consulting provider notified?: Yes 09/15/16 13:45 Consult Physician Routine Consulting Provider: Crissy Saini Consult Reason/Comments: CKD Do you want consulting provider notified?: Yes 09/15/16 19:21 Consult Physician Routine Consulting Provider: Josafat Araya Consult Reason/Comments: elevated troponins,hx kidney transplant Do you want consulting provider notified?: Yes Primary care physician: Kyrie Eveline [facility] Course: Discharge diagnosis 1. Pneumonia with cough and shortness of breath: Likely a gram-negative pneumonia. Pulmonary service following. Patient will be discharged with Augmentin for 10 more days 2. Acute on Chronic kidney disease stage IV: nephrology following. History of right kidney transplant secondary to renal failure from his diabetes mellitus 3. Diabetes mellitus type 2: Check hemoglobin A1c 5.3. Place patient on sliding scale coverage. 4. Chronic atrial fibrillation: Anticoagulated with Coumadin. INR 3.6. Hold Coumadin tonight. Resume tomorrow. Check PT/INR 5. History of morbid obesity status post gastric bypass in the 6. History of peripheral vascular disease secondary to his diabetes mellitus. Patient has required a left below the knee amputation. 7. History of DVT with previous [place] filter placement 8. History of essential hypertension: Blood pressures had shown improvement outpatient. Patient has been off of his blood pressure medications. Blood pressure is currently stable 9. History of coronary artery disease with previous coronary artery bypass grafting 2009 10. Chronic systolic congestive heart failure: No evidence of exacerbation. Echo from July 2016 shows an EF of 45-50%. Continue oral Lasix 11. Elevated troponin: Evaluated by cardiology and felt to secondary to type 2 myocardial injury because of supply and demand mismatch and hypoxia. Cardiology started patient on Lopressor 25 mg twice a day. Echo shows an EF of 45-50% Recommend checking CBC, BMP and PT/INR on Thursday Hospital course This is a 61-year-old male with a known past medical history of chronic renal failure with right kidney transplant, congestive heart failure, diabetes mellitus type 2, coronary artery disease with previous coronary bypass grafting , atrial fibrillation in which she is on Coumadin, peripheral vascular disease, DVT of the lower extremity has had Melissa filter placed, hypertension and hyperlipidemia. Patient reports that he is been having a productive cough with right shoulder pain. Also having some shortness of breath. He went to see his cable hooker, Dr. Garzon in the office. Chest x-ray in the office showed a right upper lobe pneumonia per patient. Therefore patient was a direct admit from Dr. Garzon's office. Chest x-ray shows a right upper lobe infiltrate and nodularity on admission. Repeat chest x-ray shows a persistent patchy right upper lobe infiltrate. Patient's symptoms have improved. He's been afebrile. Patient was followed by pulmonary service. They have cleared him for discharge. Recommending he continue his Augmentin for 10 more days. He'll follow up with him in the office. Patient also was seen by cardiology regards to elevated troponin. Cardiology reviewed repeat EKG and echo. They felt that likely his elevated troponin was secondary to type II myocardial injury related to supply demand mismatch. They did add Lopressor 25 mg twice a day to patient' s medication regimen. He is tolerating this well. Patient has been cleared by pulmonary and cardiology for discharge. He is also followed by nephrology due to his chronic kidney disease. Creatinine is close to baseline at discharge. And he will follow-up with nephrology in the outpatient setting. Patient's pneumonia is improving. He is medically stable for discharge. Please refer to chart for any further details. Creatinine at discharge is 3.85. INR 3.6. Recommend holding Coumadin tonight. The patient can restart his home dose of Coumadin tomorrow. Patient Condition at Discharge: Stable Plan - Discharge Summary New Discharge Prescriptions: Amoxicillin/Potassium Clav [Augmentin 875-125 Tablet] 1 tab PO Q12HR #20 tab Metoprolol Tartrate [Lopressor] 25 mg PO BID #60 tab Discharge Medication List Cholecalciferol [Vitamin D3] 1,000 mg PO BID 05/17/14 [History] Sodium Bicarbonate Tab 650 mg PO BID 05/17/14 [History] Tacrolimus [Prograf] 2 mg PO BID 12/06/14 [History] Magnesium Gluconate [Magonate] 500 mg PO DAILY 02/01/15 [History] Aspirin EC [Ecotrin Low Dose] 81 mg PO HS 02/12/16 [History] Atorvastatin [Lipitor] 80 mg PO HS 02/12/16 [History] Calcitriol 2 mcg PO BID 02/12/16 [History] Vit C/E/Zn/Coppr/Lutein/Zeaxan [Preservision Areds 2 Softgel] 1 cap PO DAILY 11/21 [History] Temazepam [Restoril] 15 mg PO HS 07/18/16 [History] INSULIN LISPRO (HumaLOG) [humaLOG] See Protocol SQ ACHS 07/19/16 [History] Warfarin [Coumadin] 2 mg PO AN 07/19/16 [History] predniSONE 5 mg PO DAILY tab 07/21/16 [Rx] Furosemide [Lasix] 40 mg PO DIRECTED 08/19/16 [History] Mycophenolate Sodium Dr [Myfortic] 360 mg PO BID 09/15/16 [History] Amoxicillin/Potassium Clav [Augmentin 875-125 Tablet] 1 tab PO Q12HR #20 tab [Rx] Metoprolol Tartrate [Lopressor] 25 mg PO BID #60 tab 09/18/16 [Rx] Warfarin [Coumadin] 1 mg PO MOTUWETHFRSA #0 09/18/16 [Rx] Follow up Appointment(s)/Referral(s): Guanakito Garzon MD [STAFF PHYSICIAN] - 1 Week Kyrie Mosquera MD [Primary Care Provider] - 1 Week Crissy Saini MD [STAFF PHYSICIAN] - 1 Week Activity/Diet/Wound Care/Special Instructions: Diet: cardiac, renal, diabetic Activity: as tolerated check CBC, BMP, PT/INR on Thursday Discharge Disposition: HOME SELF-CARE
--- NOTE | 2016-09-18 14:01 | P.PN ---
Subjective Patient is seen in follow-up for renal status and management. Patient has chronic allograft nephropathy with baseline creatinine near 3.5. GFR is stable today with creatinine at 3.85. He is currently resting in bed. No chest pain or shortness of breath. He is currently being treated for pneumonia. Denies any active chest pain or shortness of breath. Vital signs are stable. General: The patient appeared well nourished and normally developed. HEENT: Head exam is unremarkable. Neck is without jugular venous distension. LUNGS: Lungs are clear to auscultation and percussion. Breath sounds decreased. HEART: Rate and Rhythm are regular. First and second heart sounds normal. No murmurs, rubs or gallops. ABDOMEN: Abdominal exam reveals normal bowel sounds. Non-tender and non- distended. No evidence of peritonitis. EXTREMITITES: No clubbing, cyanosis, or edema. Objective - Vital Signs Vital signs: Vital Signs Temp 97.8 F 09/18/16 07:00 Pulse 63 09/18/16 07:00 Resp 20 09/18/16 07:00 BP 123/51 09/18/16 07:00 Pulse Ox 99 09/18/16 07:00 Intake & Output 09/17/16 09/18/16 09/18/16 18:59 06:59 18:59 Intake Total 722 Output Total 400 Balance 322 Intake: Intake, IV Titration 500 Amount Sodium Chloride 0.9% 1, 500 000 ml @ 50 mls/hr IV . Q20H [facility] Rx#:[id number] Oral 222 Output: Urine 400 Other: # Voids 2 2 - Labs CBC & Chem 7: 09/18/16 07:03 09/18/16 07:03 Labs: Abnormal Lab Results - Last 24 Hours (Table) 09/17/16 09/17/16 09/18/16 Range/Units 17:05 20:37 07:03 RBC 3.18 L (4.30-5.90) m/uL Hgb 9.2 L (13.0-17.5) gm/dL Hct 31.1 L (39.0-53.0) % MCHC 29.4 L (31.0-37.0) g/dL RDW 15.6 H (11.5-15.5) % Plt Count 121 L (150-450) k/uL Lymphocytes # 0.5 L (1.0-4.8) k/uL PT (9.0-12.0) sec Chloride (98-107) mmol/L Carbon Dioxide (22-30) mmol/L BUN (9-20) mg/dL Creatinine (0.66-1.25) mg/dL POC Glucose (mg/dL) 182 H 104 H (75-99) mg/dL Alkaline Phosphatase (38-126) U/L Total Protein (6.3-8.2) g/dL Albumin (3.5-5.0) g/dL 09/18/16 09/18/16 09/18/16 Range/Units 07:03 07:03 07:09 RBC (4.30-5.90) m/uL Hgb (13.0-17.5) gm/dL Hct (39.0-53.0) % MCHC (31.0-37.0) g/dL RDW (11.5-15.5) % Plt Count (150-450) k/uL Lymphocytes # (1.0-4.8) k/uL PT 35.3 H (9.0-12.0) sec Chloride 114 H (98-107) mmol/L Carbon Dioxide 17 L (22-30) mmol/L BUN 70 H (9-20) mg/dL Creatinine 3.85 H (0.66-1.25) mg/dL POC Glucose (mg/dL) 107 H (75-99) mg/dL Alkaline Phosphatase 36 L (38-126) U/L Total Protein 4.4 L (6.3-8.2) g/dL Albumin 2.3 L (3.5-5.0) g/dL 09/18/16 Range/Units 11:27 RBC (4.30-5.90) m/uL Hgb (13.0-17.5) gm/dL Hct (39.0-53.0) % MCHC (31.0-37.0) g/dL RDW (11.5-15.5) % Plt Count (150-450) k/uL Lymphocytes # (1.0-4.8) k/uL PT (9.0-12.0) sec Chloride (98-107) mmol/L Carbon Dioxide (22-30) mmol/L BUN (9-20) mg/dL Creatinine (0.66-1.25) mg/dL POC Glucose (mg/dL) 101 H (75-99) mg/dL Alkaline Phosphatase (38-126) U/L Total Protein (6.3-8.2) g/dL Albumin (3.5-5.0) g/dL Assessment and Plan Plan: Assessment: #1. donor allograft from 2010. #2. 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 #3. Pneumonia. #4. Metabolic acidosis secondary to chronic kidney disease. #5. Nonoliguric acute kidney injury mostly prerenal due to sepsis. Plan: Encourage oral intake. Maintain Prograf, CellCept, prednisone for immunosuppression. He has been transitioned over to oral antibiotics. Maintain oral sodium bicarbonate. Stable to be discharged home from nephrology standpoint and to follow-up as an outpatient in the next 1-2 weeks.
--- NOTE | 2016-09-19 13:55 | CDI ---
In responding to this query, please exercise your independent professional judgment. The [facility] Coding Staff and Clinical Documentation Specialists appreciate your assistance in clarifying documentation, maintaining compliance with coding guidelines, accurately documenting patients condition and capturing severity of illness. The fact that a question is asked does not imply that any particular answer is desired or expected. Communication forms are a method of clarifying documentation and are not made part of the Legal Health Record. Thank you in advance for your clarification. Last Revision, April 2015 Janeth Perez [address] [facility] [place] [address] Documentation Clarification Form Date: 09/19/2016 1:47:00 PM From: Charlene Foreman Admit Date: 09/15/2016 11:35:00 AM Patient Name: Ike Keller Visit Number: [id number] Discharge Date: 09/18/2016 Dr. Kyrie Mosquera and CHARLIE Kelly 'Sepsis' is documented by Nephrology on 09/18/2016. History/Risk Factors: Immunocompromised patient on Prograf, CellCept, Prednisone Kidney transplant Diabetes Mellitus Pneumonia likely gram negative Clinical Indicators: 'Acute kidney injury mostly prerenal due to sepsis' per Nephrology note on 09/18 WBC normal 7.4 Vitals signs on admission: temp 97.7, hr 92, rr 20, bp 103/47, sats 99% room air Treatment: Antibiotics: IV Zosyn IV fluids In your professional opinion, can you please clarify if these findings signify one of the following conditions, whether the condition is POA, and cause, if known? Sepsis Ruled In? Sepsis Ruled Out? Unable to determine Other, please specify Please document in your progress notes and discharge summary in order to capture severity of illness and risk of mortality. Include clinical findings that support your diagnosis. FYI: Press F11 to launch patient chart. Place X here if this finding has no clinical significance, is not applicable or if you are not able to provide any additional documentation. EVE
[2016-09-21] MEDS ORDERED: WARFARIN 2 MG TAB PO SCH (18:00)
== END 2016-09-18 14:45 | disposition home or self-care (01) | DRG 178 ==
LOC: 5MS5E 11:35 → UNDODISIN 09-16 18:26
PROVIDERS: ADMIT Internal Medicine; ATTEND Internal Medicine
DX: J15.6 Pneumonia due to other Gram-negative bacteria (principal); I13.0 Hypertensive heart and chronic kidney disease with heart failure and stage 1 through stage 4 chronic kidney disease, or unspecified chronic kidney disease; E87.2 Acidosis; N18.4 Chronic kidney disease, stage 4 (severe); N17.9 Acute kidney failure, unspecified; I50.22 Chronic systolic (congestive) heart failure; I48.2 Chronic atrial fibrillation; Z94.0 Kidney transplant status; N25.81 Secondary hyperparathyroidism of renal origin; E11.22 Type 2 diabetes mellitus with diabetic chronic kidney disease; E11.51 Type 2 diabetes mellitus with diabetic peripheral angiopathy without gangrene; I25.10 Atherosclerotic heart disease of native coronary artery without angina pectoris; K21.9 Gastro-esophageal reflux disease without esophagitis; R09.02 Hypoxemia; E78.5 Hyperlipidemia, unspecified; I25.2 Old myocardial infarction; E83.42 Hypomagnesemia; E03.9 Hypothyroidism, unspecified; H53.482 Generalized contraction of visual field, left eye; M25.511 Pain in right shoulder; R74.8 Abnormal levels of other serum enzymes; D64.9 Anemia, unspecified; I67.9 Cerebrovascular disease, unspecified; R51 Headache; M19.90 Unspecified osteoarthritis, unspecified site; E11.21 Type 2 diabetes mellitus with diabetic nephropathy; Z86.79 Personal history of other diseases of the circulatory system; Z88.5 Allergy status to narcotic agent; Z79.899 Other long term (current) drug therapy; Z79.01 Long term (current) use of anticoagulants; Z87.891 Personal history of nicotine dependence; Z98.84 Bariatric surgery status; Z95.1 Presence of aortocoronary bypass graft; Z89.512 Acquired absence of left leg below knee; Z86.718 Personal history of other venous thrombosis and embolism; Z90.49 Acquired absence of other specified parts of digestive tract; Z83.3 Family history of diabetes mellitus; Z86.39 Personal history of other endocrine, nutritional and metabolic disease; Z87.448 Personal history of other diseases of urinary system; Z87.01 Personal history of pneumonia (recurrent); Z98.42 Cataract extraction status, left eye; Z98.41 Cataract extraction status, right eye; Z84.1 Family history of disorders of kidney and ureter; Z82.49 Family history of ischemic heart disease and other diseases of the circulatory system; Z80.0 Family history of malignant neoplasm of digestive organs; Z79.4 Long term (current) use of insulin; Z87.2 Personal history of diseases of the skin and subcutaneous tissue; Z71.3 Dietary counseling and surveillance; Z89.411 Acquired absence of right great toe; Z79.82 Long term (current) use of aspirin; Z98.62 Peripheral vascular angioplasty status
CPT/HCPCS: 71010; 71020; 80048; 80053; 81001; 83036; 84484; 85025; 85610; 87502; 93005; 93306; 99214

== ENCOUNTER → 2016-09-25 | Outpatient (CLI) | payer MEDICARE, BC ==
[2016-09-25 11:01] LABS: CH 29.7; CHCM 31.3; HGB 9.8 gm/dL (13.0-17.5); Hypochromasia Moderate; MCH 30.3 pg (25.0-35.0); MCHC 31.8 g/dL (31.0-37.0); MCV 95.3 fL (80.0-100.0); Mean Platelet Volume 9.7; RBC 3.25 m/uL (4.30-5.90); RDW 15.6 % (11.5-15.5); WBC 4.1 k/uL (3.8-10.6)
[2016-09-25 11:06] LABS: INR 1.4 (<1.1); Prothrombin Time 14.1 sec (9.0-12.0)
[2016-09-25 11:15] LABS: Calcium 8.5 mg/dL (8.4-10.2); Potassium 4.7 mmol/L (3.5-5.1)
== END | disposition home or self-care (01) ==
LOC: LABWHC1 10:25
PROVIDERS: ATTEND Internal Medicine
DX: I48.91 Unspecified atrial fibrillation (principal); D64.9 Anemia, unspecified; N18.9 Chronic kidney disease, unspecified
CPT/HCPCS: 36415; 80048; 85027; 85610

== ENCOUNTER → 2016-10-08 | Outpatient (CLI) | payer MEDICARE, BC ==
[2016-10-08 10:01] LABS: Basophils % (A) 1 %; CH 28.9; CHCM 29.8; Eosinophils % (A) 1 %; HCT 32.8 % (39.0-53.0); HDW 2.92; HGB 9.8 gm/dL (13.0-17.5); Hypochromasia Marked; Luc # (Auto) 0.09; Luc % (Auto) 4; Lymphocytes # (A) 0.7 k/uL (1.0-4.8); Lymphocytes % (A) 29 %; MCH 29.1 pg (25.0-35.0); MCHC 29.8 g/dL (31.0-37.0); MCV 97.7 fL (80.0-100.0); Macrocytosis Slight; Mean Platelet Volume 9.6; Monocytes # (A) 0.2 k/uL (0-1.0); Monocytes % (A) 10 %; Neutrophils # (A) 1.4 k/uL (1.3-7.7); Neutrophils % (A) 56 %; RBC 3.35 m/uL (4.30-5.90); RDW 15.8 % (11.5-15.5); WBC 2.4 k/uL (3.8-10.6); WBC (Perox) 2.67
[2016-10-08 10:26] LABS: Appearance,Urine Clear (Clear); Bilirubin,Urine Negative (Negative); Glucose,Urine (UA) Negative (Negative); Ketones,Urine Negative (Negative); Leukocyte Esterase,Urine Negative (Negative); Nitrite,Urine Negative (Negative); PH, Urine 6.5 (5.0-8.0); Particle Count 343; Protein,Urine 3+ (Negative); RBC,Urine 1 /hpf (0-5); UA Billing (MACRO vs. MICRO) MICRO; Urobilinogen,Urine <2.0 mg/dL (<2.0); WBC,Urine 1 /hpf (0-5)
[2016-10-08 11:21] LABS: Magnesium 1.6 mg/dL (1.6-2.3); Phosphorous 4.1 mg/dL (2.5-4.5); Uric Acid 7.4 mg/dL (3.5-8.5)
== END | disposition home or self-care (01) ==
LOC: LABWHC1 09:13
PROVIDERS: ATTEND Internal Medicine Nephrology
DX: N39.0 Urinary tract infection, site not specified (principal); N18.5 Chronic kidney disease, stage 5; D50.9 Iron deficiency anemia, unspecified; Z94.0 Kidney transplant status; E55.9 Vitamin D deficiency, unspecified; D64.9 Anemia, unspecified; E21.3 Hyperparathyroidism, unspecified; M10.9 Gout, unspecified
CPT/HCPCS: 36415; 80048; 80197; 81001; 82040; 82306; 82728; 83540; 83550; 83735; 83970; 84100; 84550; 85025

== ENCOUNTER → 2016-10-20 | Outpatient (CLI) | payer MEDICARE, BC ==
[2016-10-20 10:42] LABS: Appearance,Urine Clear (Clear); Bilirubin,Urine Negative (Negative); Glucose,Urine (UA) Negative (Negative); Ketones,Urine Negative (Negative); Leukocyte Esterase,Urine Negative (Negative); Nitrite,Urine Negative (Negative); Particle Count 232; Protein,Urine 2+ (Negative); RBC,Urine 4 /hpf (0-5); Specific Gravity,Urine 1.009 (1.001-1.035); UA Billing (MACRO vs. MICRO) MICRO; Urobilinogen,Urine <2.0 mg/dL (<2.0); WBC,Urine 2 /hpf (0-5)
[2016-10-20 10:48] LABS: Anisocytosis Slight; Basophils % (A) 1 %; CH 29.2; CHCM 29.9; Eosinophils % (A) 1 %; HCT 34.4 % (39.0-53.0); HDW 2.87; HGB 10.2 gm/dL (13.0-17.5); Hypochromasia Marked; Luc # (Auto) 0.11; Luc % (Auto) 3; Lymphocytes # (A) 0.9 k/uL (1.0-4.8); Lymphocytes % (A) 27 %; MCH 29.1 pg (25.0-35.0); MCHC 29.6 g/dL (31.0-37.0); MCV 98.5 fL (80.0-100.0); Macrocytosis Slight; Mean Platelet Volume 9.8; Monocytes # (A) 0.3 k/uL (0-1.0); Monocytes % (A) 11 %; Neutrophils # (A) 1.8 k/uL (1.3-7.7); Neutrophils % (A) 57 %; RBC 3.49 m/uL (4.30-5.90); RDW 16.5 % (11.5-15.5); WBC 3.1 k/uL (3.8-10.6); WBC (Perox) 3.19
[2016-10-20 11:12] LABS: Calcium 9.2 mg/dL (8.4-10.2); Magnesium 1.8 mg/dL (1.6-2.3); Phosphorous 4.6 mg/dL (2.5-4.5); Uric Acid 8.1 mg/dL (3.5-8.5)
[2016-10-20 11:20] LABS: % Iron Saturation 36.8 % (20-50)
== END | disposition home or self-care (01) ==
LOC: LABWHC1 09:29
PROVIDERS: ATTEND Internal Medicine Nephrology
DX: D50.9 Iron deficiency anemia, unspecified (principal); N18.5 Chronic kidney disease, stage 5; E55.9 Vitamin D deficiency, unspecified; E21.3 Hyperparathyroidism, unspecified; M10.9 Gout, unspecified; Z94.0 Kidney transplant status
CPT/HCPCS: 36415; 80048; 80197; 81001; 82040; 82306; 82728; 83540; 83550; 83735; 83970; 84100; 84550; 85025

== ENCOUNTER 2016-11-14 06:02 | Day surgery (SDC) | payer MEDICARE, BC ==
--- NOTE | 2016-11-04 12:45 | P.GSHP ---
History of Present Illness H&P Date: 11/04/16 Chief Complaint: Renal failure Patient seen in the office complaining of progressive renal failure. The patient has a history of being placed on hemodialysis back in 2010. He has had 2 separate kidney transplants since that time and his most recent kidney transplant function is declining. He hopes to have another kidney transplant in the near future. In the interim the patient is requesting a peritoneal dialysis catheter. The patient has a surgical history significant for a gastric bypass in 1989 performed through a large midline incision. Past Medical History Past Medical History: Atrial Fibrillation, Coronary Artery Disease (CAD), Diabetes Mellitus, Dialysis, Deep Vein Thrombosis (DVT), GERD/Reflux, Hyperlipidemia, Hypertension, Myocardial Infarction ([place]), Osteoarthritis (OA), Pneumonia, Renal Disease, Skin Disorder, Thyroid Disorder, Vascular Disorder Additional Past Medical History / Comment(s): IN PAST TOOK MEDS FOR HYPERTENSION Last Myocardial Infarction Date:: 2009 History of Any Multi-Drug Resistant Organisms: None Reported Past Surgical History: Adenoidectomy, Bariatric Surgery, Coronary Bypass/CABG, Heart Catheterization, Tonsillectomy Additional Past Surgical History / Comment(s): jamarcus caniter, kidney transplant-2010 has rt kidney,CABG-2009, gastric bypass, RT great toe amputation , [place]ON CATARACTS, carotid endarterectomy, amputation lt BKA. angioplasty to the popliteal artery and posterior left femoral artery performed by Dr. Fowler on 01-30-15 Past Anesthesia/Blood Transfusion Reactions: No Reported Reaction Additional Past Anesthesia/Blood Transfusion Reaction / Comment(s): HX BLOOD TRANSFUSIONS- NO REACTIONS . Past Psychological History: No Psychological Hx Reported Additional Psychological History / Comment(s): Is medically disabled after his renal transplantation. 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 Past Drug Use History: None Reported - Past Family History Father Family Medical History: Diabetes Mellitus, Dialysis Additional Family Medical History / Comment(s): "big heart", bilat BKA Mother Family Medical History: Cancer Additional Family Medical History / Comment(s): colon Medications and Allergies Home Medications Medication Instructions Recorded Confirmed Type Cholecalciferol [Vitamin D3] 1,000 mg PO BID 05/17/14 09/15/16 History Sodium Bicarbonate Tab 650 mg PO BID 05/17/14 09/15/16 History Tacrolimus [Prograf] 2 mg PO BID 12/06/14 09/15/16 History Magnesium Gluconate [Magonate] 500 mg PO DAILY 02/01/15 09/15/16 History Aspirin EC [Ecotrin Low Dose] 81 mg PO HS 02/12/16 09/15/16 History Atorvastatin [Lipitor] 80 mg PO HS 02/12/16 09/15/16 History Calcitriol 2 mcg PO BID 02/12/16 09/15/16 History Vit C/E/Zn/Coppr/Lutein/Zeaxan 1 cap PO DAILY 02/12/16 09/15/16 History [Preservision Areds 2 Softgel] Temazepam [Restoril] 15 mg PO HS 07/18/16 09/15/16 History INSULIN LISPRO (HumaLOG) [humaLOG] See Protocol SQ ACHS 07/19/16 09/15/16 History Warfarin [Coumadin] 2 mg PO AN 07/19/16 09/15/16 History Furosemide [Lasix] 40 mg PO DIRECTED 08/19/16 09/15/[address] [Myfortic] 360 mg PO BID 09/15/16 09/15/16 History Allergies Allergy/AdvReac Type Severity Reaction Status Date / Time codeine AdvReac Severe constipatio Verified 09/15/16 12:45 n Surgical - Exam Physical exam: General: Well-developed, well-nourished HEENT: Normocephalic, sclerae nonicteric Abdomen: Nontender, nondistended, midline incision noted Extremities: No edema Neuro: Alert and oriented Assessment and Plan (1) Acute renal failure Narrative/Plan: Will proceed with. No dialysis catheter insertion on 11/14. Risks of bleeding, infection, catheter malfunction, bowel injury, potential need for laparoscopy, potential of procedure. The patient stands and wishes to proceed. Status: Acute
[2016-11-12 14:57] VITALS: BMI 22.4
[~2016-11-14 06:02] MED LIST: DEXAMETHASONE SOD PHOSPHATE 10 MG/ML 1 ML VIAL IV ONE; HEPARIN SODIUM,PORCINE 5,000 UNIT/ML 1 ML VIAL SQ ONE; HYDROmorphone 1 MG/ML 1 ML SYRINGE IVP PRN; LACTATED RINGERS 1,000 ML IV SCH; MIDAZOLAM 2 MG/2 ML VIAL IV PRN; ONDANSETRON 4 MG/2 ML VIAL IVP ONE; SCOPOLAMINE 1.5MG/72HR PATCH TRANSDERM ONE; ceFAZolin 2 GM in SODIUM CHLORIDE 0.9% 100 ML IVPB ONE
[2016-11-14] MEDS ORDERED: LIDOCAINE 1% 20 ML VIAL (10MG/ML) FOR IV START SQ ONE (06:10)
[2016-11-14 06:26] VITALS: RESP 16
[2016-11-14 06:28] LABS: Glucose,Whole Blood 73 mg/dL (75-99)
[2016-11-14] MEDS ORDERED: SODIUM CHLORIDE 0.9% 1,000 ML IV ONE ×2 (06:31)
[2016-11-14 06:41] LABS: INR 1.6 (<1.1); Prothrombin Time 15.4 sec (9.0-12.0)
[2016-11-14] MEDS ORDERED: PROPOFOL 10 MG/ML 20 ML VIAL IV ONE (07:58)
[2016-11-14] MEDS ORDERED: LIDOCAINE 1% INJ 10MG/ML (20 ML MDV) ONE (07:58)
[2016-11-14] MEDS ORDERED: MIDAZOLAM 2 MG/2 ML VIAL ONE (07:58)
[2016-11-14] MEDS ORDERED: fentaNYL (PF) 50 MCG/ML 2 ML AMP ONE (07:58)
[2016-11-14] MEDS ORDERED: ePHEDrine 50 MG/ML 1 ML AMP ONE (07:58)
[2016-11-14] MEDS ORDERED: MINERAL OIL 1 APPLIC/ML OIL TOPICAL ONE (08:05)
[2016-11-14] MEDS ORDERED: BUPIVACAIN-EPI 0.25%-1:200,000 30 ML VIAL SQ ONE ×3 (08:05→08:21)
[2016-11-14] MEDS ORDERED: HYDROcodone/APAP 5-325MG 1 EACH TAB PO PRN (08:58)
[2016-11-14] MEDS ORDERED: NALOXONE 0.4 MG/ML 1 ML VIAL IV PRN (08:58)
[2016-11-14 09:01] VITALS: TEMP 97.5
[2016-11-14] MEDS ORDERED: SODIUM CHLORIDE 0.9% 500 ML IV ONE (09:03)
[2016-11-14 09:15] LABS: Glucose,Whole Blood 91 mg/dL (75-99)
--- NOTE | 2016-11-14 09:22 | P.OP ---
Date of Procedure: 11/14/16 Preoperative Diagnosis: Postoperative Diagnosis: Procedure(s) Performed: PREOPERATIVE DIAGNOSIS: Renal failure POSTOPERATIVE DIAGNOSIS: Same PROCEDURE: Peritoneal dialysis catheter insertion SURGEON: Henry EBL: Minimal ANESTHESIA: Sedation plus local COMPLICATIONS: None OPERATIVE PROCEDURE: The patient was placed in the operative table in the supine position. His abdomen was prepped and draped in usual sterile fashion. A small vertical incision was made in the right periumbilical location. Dissection down through the subcutaneous tissues took place using electrocautery. The anterior rectus was divided vertically using the scalpel. The rectus was bluntly. The posterior rectus was visualized. An 0 Vicryl pursestring was placed. A small opening in the posterior rectus fascia and peritoneum took place using a Metzenbaum scissors. There were no adhesions to the suture that was placed. The pigtail catheter was advanced into the pelvis over a stylette. No resistance was met. The inner cuff was secured to the fascia using the 0 Vicryl pursestring that was placed. The catheter was tunneled to an exit site in the right lateral lower quadrant. The catheter was connected to the 1 L bag of saline and approximated 800 mL of saline was easily introduced into the peritoneal cavity. The fluid was then allowed to evacuate. The majority of the fluid was returned. The anterior rectus fascia was then reapproximated using a running 0 Vicryl stitch. The subcutaneous tissues reprepped using 3-0 Vicryl sutures and the skin using 4-0 Monocryl sutures. The outpatient dialysis adapter was applied to the end of the catheter. A sterile dressings then applied after Steri-Strips were placed over the incision. DISPOSITION: Stable to recovery room Implants: Indications for Procedure: Operative Findings: Description of Procedure:
[2016-11-14 10:12] VITALS: BP 150/65; PULSE 82
== END 2016-11-14 10:41 | disposition home or self-care (01) ==
LOC: OR 06:02
PROVIDERS: ATTEND Surgery
DX: T86.12 Kidney transplant failure (principal); N17.9 Acute kidney failure, unspecified; I25.10 Atherosclerotic heart disease of native coronary artery without angina pectoris; I10 Essential (primary) hypertension; E78.5 Hyperlipidemia, unspecified; K21.9 Gastro-esophageal reflux disease without esophagitis; M19.90 Unspecified osteoarthritis, unspecified site; E07.9 Disorder of thyroid, unspecified; Z79.4 Long term (current) use of insulin; Z79.899 Other long term (current) drug therapy; Z87.891 Personal history of nicotine dependence; Z95.1 Presence of aortocoronary bypass graft; Z89.512 Acquired absence of left leg below knee; Z88.5 Allergy status to narcotic agent; Z79.01 Long term (current) use of anticoagulants; Z98.84 Bariatric surgery status; Z86.718 Personal history of other venous thrombosis and embolism; I25.2 Old myocardial infarction
CPT/HCPCS: 49421; 84132; 85610; C1752; J2250; J1644; J1100; J0690; J2405; J2001; J3010; J2704

== ENCOUNTER → 2016-11-17 | Outpatient (CLI) | payer MEDICARE, BC ==
[2016-11-17 10:33] LABS: Anisocytosis Slight; Basophils % (A) 1 %; CH 29.8; CHCM 30.5; Eosinophils % (A) 1 %; HCT 30.5 % (39.0-53.0); HDW 3.24; Hypochromasia Marked; Luc # (Auto) 0.07; Luc % (Auto) 2; Lymphocytes # (A) 0.8 k/uL (1.0-4.8); Lymphocytes % (A) 27 %; MCH 29.1 pg (25.0-35.0); MCHC 29.6 g/dL (31.0-37.0); MCV 98.4 fL (80.0-100.0); Macrocytosis Slight; Mean Platelet Volume 9.9; Monocytes # (A) 0.2 k/uL (0-1.0); Monocytes % (A) 7 %; Neutrophils # (A) 1.8 k/uL (1.3-7.7); Neutrophils % (A) 63 %; RDW 17.4 % (11.5-15.5); WBC 2.9 k/uL (3.8-10.6); WBC (Perox) 3.08
[2016-11-17 10:48] LABS: Calcium 8.7 mg/dL (8.4-10.2); Potassium 3.9 mmol/L (3.5-5.1)
== END | disposition home or self-care (01) ==
LOC: LABWHC1 09:44
PROVIDERS: ATTEND Internal Medicine Nephrology
DX: D64.9 Anemia, unspecified (principal); N18.4 Chronic kidney disease, stage 4 (severe); Z94.0 Kidney transplant status
CPT/HCPCS: 36415; 80048; 80197; 85025

== ENCOUNTER → 2016-11-28 | Outpatient (CLI) | payer MEDICARE, BC ==
[2016-11-28 12:55] LABS: Anisocytosis Slight; Basophils % (A) 0 %; CH 29.8; CHCM 30.6; Eosinophils % (A) 0 %; HCT 28.6 % (39.0-53.0); HDW 3.35; Hypochromasia Marked; Luc # (Auto) 0.09; Luc % (Auto) 2; Lymphocytes # (A) 0.5 k/uL (1.0-4.8); Lymphocytes % (A) 11 %; MCH 30.8 pg (25.0-35.0); MCHC 31.4 g/dL (31.0-37.0); Macrocytosis Slight; Mean Platelet Volume 9.9; Monocytes # (A) 0.2 k/uL (0-1.0); Monocytes % (A) 5 %; Neutrophils # (A) 3.9 k/uL (1.3-7.7); Neutrophils % (A) 82 %; RBC 2.92 m/uL (4.30-5.90); RDW 16.9 % (11.5-15.5); WBC 4.7 k/uL (3.8-10.6); WBC (Perox) 4.89
[2016-11-28 14:13] LABS: Erythrocyte Sedimentation Rate 48 mm/hr (0-15)
[2016-11-28 18:32] LABS: Hemoglobin A1C 4.8 % (4.2-6.1)
== END | disposition home or self-care (01) ==
LOC: LABWHC1 12:15
PROVIDERS: ATTEND Ophthalmology
DX: M31.6 Other giant cell arteritis (principal)
CPT/HCPCS: 36415; 83036; 85025; 85652; 86140

== ENCOUNTER → 2016-11-29 | Outpatient (CLI) | payer MEDICARE, BC ==
[2016-11-29 12:57] LABS: Hepatitis B Surface Ag Index 0.05
[2016-11-29 13:03] LABS: Hepatitis B Core IgM Index 0.02
[2016-11-29 13:14] LABS: Hepatitis C Virus IgG Ab Negative (Negative); Hepatitis C Virus IgG Index 0.05
== END | disposition home or self-care (01) ==
LOC: LABWHC1 11:57
PROVIDERS: ATTEND Internal Medicine Nephrology
DX: K75.9 Inflammatory liver disease, unspecified (principal)
CPT/HCPCS: 36415; 80074

== ENCOUNTER 2016-12-18 11:01 | Inpatient (IN) | payer MEDICARE, BC ==
[2016-12-18 12:24] LABS: Glucose,Whole Blood 68 mg/dL (75-99)
[2016-12-18 12:24] LABS: Glucose,Whole Blood 53 mg/dL (75-99)
[2016-12-18 12:46] LABS: Glucose,Whole Blood 79 mg/dL (75-99)
[2016-12-18] MEDS ORDERED: FUROSEMIDE 40 MG TAB PO SCH (13:00)
--- NOTE | 2016-12-18 13:26 | XR ---
EXAMINATION TYPE: XR chest 2V DATE OF EXAM: 12/18/2016 COMPARISON: 09/17/2016 TECHNIQUE: PA and lateral views submitted. HISTORY: Pneumonia FINDINGS: Lucency beneath the right hemidiaphragm appears to be contained within the bowel. There is bibasilar atelectasis or infiltrate. Heart is enlarged and there is postoperative change. Diffuse osteopenia an d arthropathy of the shoulders. IMPRESSION: 1. Bilateral infiltrate and tiny effusion.
[2016-12-18 13:39] LABS: Basophils % (A) 0 %; CHCM 29.7; Eosinophils % (A) 0 %; HCT 31.5 % (39.0-53.0); HDW 2.99; HGB 9.5 gm/dL (13.0-17.5); Hypochromasia Marked; Luc # (Auto) 0.11; Luc % (Auto) 2; Lymphocytes # (A) 0.4 k/uL (1.0-4.8); Lymphocytes % (A) 6 %; MCH 30.5 pg (25.0-35.0); MCHC 30.1 g/dL (31.0-37.0); MCV 101.5 fL (80.0-100.0); Macrocytosis Slight; Mean Platelet Volume 8.7; Monocytes # (A) 0.4 k/uL (0-1.0); Monocytes % (A) 6 %; Neutrophils # (A) 5.9 k/uL (1.3-7.7); Neutrophils % (A) 86 %; WBC 6.8 k/uL (3.8-10.6); WBC (Perox) 6.89
--- NOTE | 2016-12-18 13:47 | XR ---
EXAMINATION TYPE: XR abdomen 2V DATE OF EXAM: 12/18/2016 CLINICAL DATA: 61-year-old male peritoneal catheter position, constipation, leg swelling, PHH COMPARISON: None FINDINGS: The peritoneal dialysis catheter seen looped at the level of the right mid to lower abdomen projectin g over the right iliac crest. Numerous scattered colonic and small bowel air fluid levels are seen throughout without abnormal hitesh l dilatation. No abnormal bowel dilatation. No evidence for free intraperitoneal air. Diffuse vascular calcifications are present compatible with patient's chronic kidney disease. IMPRESSION: 1. Peritoneal dialysis catheter present projecting over the right iliac crest in the right mid to low er abdomen. 2. Diffuse colonic and small bowel air-fluid levels suggests generalized ileus or enteritis. 3. Overall nonobstructive bowel gas pattern. No free intraperitoneal air.
[2016-12-18 13:52] LABS: Calcium 8.3 mg/dL (8.4-10.2); Potassium 4.1 mmol/L (3.5-5.1); Total Bilirubin 0.3 mg/dL (0.2-1.3); Total Protein 4.2 g/dL (6.3-8.2)
[2016-12-18 13:58] LABS: INR 1.3 (<1.1)
--- NOTE | 2016-12-18 14:02 | P.HPIM ---
History of Present Illness H&P Date: 12/18/16 Chief Complaint: Cough with swelling in the lower extremities This is a 61-year-old male with a known past medical history of chronic renal failure with right kidney transplant. He was started on peritoneal dialysis about a week ago. He also has a known history of congestive heart failure, diabetes mellitus type 2, coronary artery disease and previous coronary artery bypass grafting, atrial fibrillation in which she is on Coumadin, peripheral vascular disease, DVT of the lower extremity and has [place] filter placed, hypertension and hyperlipidemia. Patient presented to Dr. Mosquera's office with not feeling well and having cough and lower extremity swelling. He was a direct admit to the hospital for possible pneumonia. Chest x-ray is showing a bilateral infiltrate with tiny effusion. Patient reports the cough is nonproductive. He denies any chest pain or shortness of breath. However he has noted about a 40 pound weight gain over the last week. He reports significant swelling in both his legs. He has a left below the knee amputation that has also had some swelling. He denies any chest pain. Denies any fever or sweats. Denies any nausea or vomiting. Denies any bowel movement changes or urinary symptoms. Patient does report being cold with chills. Patient was also hypoglycemic with a blood sugar of 68 on admission. He was given food and orange juice. Blood sugars slowly coming up. Patient reports that his blood sugar was low this morning. He ate a few candies and then his blood sugar was in the 300s. He took about 12 units of Humalog before coming to the hospital. He also reports that he's been doing the peritoneal dialysis at home and the amount of fluid that he is putting and with dialysis is more than what he is getting out. Nephrology has been consulted. Patient will be placed on IV antibiotics for possible pneumonia. Review of Systems Please refer to HPI otherwise unremarkable Past Medical History Past Medical History: Atrial Fibrillation, Coronary Artery Disease (CAD), Diabetes Mellitus, Dialysis, Deep Vein Thrombosis (DVT), GERD/Reflux, Hyperlipidemia, Hypertension, Myocardial Infarction ([place]), Osteoarthritis (OA), Pneumonia, Renal Disease, Thyroid Disorder, Vascular Disorder Additional Past Medical History / Comment(s): TAKES NO CURRENT MEDS FOR THYROID , STATES HAS ONE CURRENT KIDNEY TRANSPLANT THAT IS FAILING. HAS LEFT BELOW KNEE PROSTHESIS Last Myocardial Infarction Date:: 2009 History of Any Multi-Drug Resistant Organisms: None Reported Past Surgical History: Adenoidectomy, Bariatric Surgery, Coronary Bypass/CABG, Heart Catheterization, Tonsillectomy Additional Past Surgical History / Comment(s): jamarcus fliter, kidney transplant-X2,CABG-2010 TRIPLE, gastric bypass, RT great toe amputation , [place] CATARACTS, RIGHT carotid endarterectomy, amputation lt BKA,angioplasty to the popliteal artery and posterior left femoral artery performed by Dr. Fowler on Past Anesthesia/Blood Transfusion Reactions: No Reported Reaction Additional Past Anesthesia/Blood Transfusion Reaction / Comment(s): HX BLOOD TRANSFUSIONS- NO REACTIONS . Smoking Status: Never smoker - Past Family History Father Family Medical History: Diabetes Mellitus, Dialysis Additional Family Medical History / Comment(s): "big heart", bilat BKA Mother Family Medical History: Cancer Additional Family Medical History / Comment(s): colon Medications and Allergies Home Medications Medication Instructions Recorded Confirmed Type Cholecalciferol [Vitamin D3] 2,000 mg PO BID 05/17/14 12/18/16 History Sodium Bicarbonate Tab 650 mg PO BID 05/17/14 12/18/16 History Tacrolimus [Prograf] 2 mg PO BID 12/06/14 12/18/16 History Magnesium Gluconate [Magonate] 500 mg PO DAILY 02/01/15 12/18/16 History Aspirin EC [Ecotrin Low Dose] 81 mg PO HS 02/12/16 12/18/16 History Atorvastatin [Lipitor] 80 mg PO HS 02/12/16 12/18/16 History Calcitriol 1 mcg PO BID 02/12/16 12/18/16 History Vit C/E/Zn/Coppr/Lutein/Zeaxan 1 cap PO BID 02/12/16 12/18/16 History [Preservision Areds 2 Softgel] Temazepam [Restoril] 15 mg PO HS 07/18/16 12/18/16 History INSULIN LISPRO (HumaLOG) [humaLOG] See Protocol SQ ACHS 07/19/16 12/18/16 History Furosemide [Lasix] 40 mg PO DAILY 08/19/16 12/18/[address] [Myfortic] 360 mg PO DAILY 09/15/16 12/18/16 History Warfarin [Coumadin] 1 mg PO DAILY 11/12/16 12/18/16 History Allergies Allergy/AdvReac Type Severity Reaction Status Date / Time codeine AdvReac Severe constipatio Verified 12/18/16 12:25 n Physical Exam Vitals: Vital Signs Temp Pulse Resp BP Pulse Ox 12/18/16 11:50 99.4 F 88 16 151/69 98 Intake and Output 12/17/16 12/18/16 12/18/16 22:59 06:59 14:59 Other: Weight 95.254 kg Patient Weight 12/19/16 06:59 Weight 95.254 kg Head normocephalic Neck supple Lungs crackles with coarse breath sounds noted in the left lung base Heart regular rate and rhythm S1-S2, no rub or gallop Abdomen is soft nontender nondistended positive bowel sounds no hepatosplenomegaly Extremities right leg +1 to +2 pitting edema. Some abrasions noted along the right tibia. No drainage. Right second toe small wound no evidence of infection Neuro alert and orientated to 3 Results Labs: Abnormal Lab Results - Last 24 Hours (Table) 12/18/16 12/18/16 Range/Units 12:08 12:23 POC Glucose (mg/dL) 53 L 68 L (75-99) mg/dL Assessment and Plan Plan: 1. Pneumonia with nonproductive cough. Chest x-ray showing bilateral infiltrate. Start Zosyn and consult Dr. Nino 2. Bilateral lower extremity edema with 40 pound weight gain. Check BNP level. Check albumin level. Resume home Lasix 40 mg daily. Last echo September 2016 with EF of 45-50% 3. Chronic kidney disease stage IV with history of right kidney transplant secondary to renal failure from his diabetes mellitus. Patient recently started on urgent dialysis a week ago. Nephrology will be consulted. Resume home medications 4. Diabetes mellitus type 2: Episodes of hypoglycemia likely related to poor oral intake. Continue to monitor. Add sliding scale coverage. 5. Chronic atrial fibrillation: Anticoagulated with Coumadin. Check PT/INR level. Dose Coumadin accordingly 6. History of morbid obesity status post gastric bypass in the 7. History of peripheral vascular disease secondary to his diabetes mellitus. Patient has required left below-knee amputation. 8. History of DVT with previous Jamarcus filter placement 9. History of essential hypertension 10. History of coronary artery disease with previous coronary artery bypass grafting 2009 11. Anemia of chronic kidney disease 12. Severe protein calorie malnutrition add Glucerna shakes 3 times a day with meals Time with Patient: Greater than 30 (Greater than 50% of the total time spent in counseling and coordination of care.I performed an examination of the patient and discussed their management with the physician Auto Polisher. I have reviewed the Physician Auto Polisher's notes and agree with the documented findings and plan of care)
[2016-12-18 14:30] LABS: Glucose,Whole Blood 63 mg/dL (75-99)
[2016-12-18 14:50] LABS: Glucose,Whole Blood 77 mg/dL (75-99)
[2016-12-18] MEDS: DIALYSIS (PERIT 2.5%) 2,000 ML 50 G/2,000 ML BAG INTRAPERIT SCH ×3 (14:55→23:49)
[2016-12-18] MEDS: SODIUM BICARBONATE TAB 650 MG TAB PO SCH ×2 (15:04→21:51)
[2016-12-18] MEDS: MAGNESIUM OXIDE 400 MG TAB PO SCH (15:04)
[2016-12-18] MEDS: predniSONE 5 MG TAB PO SCH (15:04)
[2016-12-18] MEDS: PIPERACILLIN-TAZOBACTAM 3.375 GM in DEXTROSE/WATER 1 50ML.BAG IVPB SCH ×2 (15:05→23:48)
[2016-12-18] MEDS: TACROLIMUS 1 MG CAP PO SCH ×2 (15:05→21:51)
[2016-12-18] MEDS: MYCOPHENOLATE SODIUM DR 180 MG TABLET.DR PO SCH (15:06)
[2016-12-18] MEDS: BACITRACIN 500 UNIT/GM OINT 28.4 GM TUBE TOPICAL SCH (16:07)
[2016-12-18 16:54] LABS: Glucose,Whole Blood 132 mg/dL (75-99)
[2016-12-18] MEDS: INSULIN LISPRO (humaLOG) 300 UNIT/3 ML VIAL SQ SCH ×2 (17:00→21:55)
[2016-12-18] MEDS ORDERED: WARFARIN 1 MG TAB PO SCH (18:00)
[2016-12-18] MEDS ORDERED: WARFARIN 5 MG TAB PO ONE (18:00)
[2016-12-18 18:10] LABS: RBC, Body Fluid 3 /uL
[2016-12-18 20:06] LABS: Hemoglobin A1C 4.7 % (4.2-6.1)
[2016-12-18 21:05] LABS: Glucose,Whole Blood 204 mg/dL (75-99)
[2016-12-18] MEDS: ASPIRIN 81 MG CHEW PO SCH (21:50)
[2016-12-18] MEDS: ATORVASTATIN 80 MG TAB PO SCH (21:50)
[2016-12-18] MEDS: CALCITRIOL 0.25 MCG CAP PO SCH (21:51)
[2016-12-18] MEDS: DOCUSATE 100 MG CAP PO SCH (21:51)
[2016-12-18] MEDS: CHOLECALCIFEROL 1,000 UNIT TAB PO SCH (21:51)
[2016-12-18] MEDS: VIT A,C & E-LUTEIN-MINERALS 1 EACH TAB PO SCH (21:52)
[2016-12-18] MEDS: TEMAZEPAM 15 MG CAP PO SCH (23:49)
[2016-12-19] MEDS: DIALYSIS (PERIT 2.5%) 2,000 ML 50 G/2,000 ML BAG INTRAPERIT SCH ×4 (04:14→23:44)
[2016-12-19 06:02] LABS: Glucose,Whole Blood 119 mg/dL (75-99)
[2016-12-19] MEDS: INSULIN LISPRO (humaLOG) 300 UNIT/3 ML VIAL SQ SCH ×4 (06:28→21:17)
[2016-12-19 06:32] LABS: Basophils % (A) 0 %; CH 29.8; CHCM 29.8; Eosinophils % (A) 0 %; HCT 26.9 % (39.0-53.0); HDW 2.91; HGB 8.3 gm/dL (13.0-17.5); Hypochromasia Marked; Luc # (Auto) 0.08; Luc % (Auto) 2; Lymphocytes # (A) 0.5 k/uL (1.0-4.8); Lymphocytes % (A) 12 %; MCH 31.2 pg (25.0-35.0); MCHC 30.9 g/dL (31.0-37.0); MCV 100.9 fL (80.0-100.0); Macrocytosis Slight; Mean Platelet Volume 9.3; Monocytes # (A) 0.4 k/uL (0-1.0); Monocytes % (A) 10 %; Neutrophils # (A) 2.9 k/uL (1.3-7.7); Neutrophils % (A) 76 %; RBC 2.67 m/uL (4.30-5.90); RDW 15.5 % (11.5-15.5); WBC 3.8 k/uL (3.8-10.6); WBC (Perox) 4.01
[2016-12-19 06:35] LABS: INR 1.7 (<1.1); Prothrombin Time 16.2 sec (9.0-12.0)
[2016-12-19 06:43] LABS: Calcium 7.9 mg/dL (8.4-10.2); Potassium 3.7 mmol/L (3.5-5.1); Total Bilirubin 0.3 mg/dL (0.2-1.3); Total Protein 3.5 g/dL (6.3-8.2)
--- NOTE | 2016-12-19 07:24 | CONS ---
DATE OF CONSULTATION: 12/19/2016 REASON FOR CONSULT: End-stage renal disease. HISTORY OF PRESENT ILLNESS: The patient is a 61-year-old white male with history of end-stage renal disease recently started on peritoneal dialysis. Patient has had history of previous renal transplant. He was admitted to the hospital with complaints of increased lower extremity edema, cough and weight gain. He was also more fatigued. He denied any chest pain. He stated that he had almost a 40-pound weight gain over the last 1-1/2 weeks or so. Patient has been tolerating his dialysis fairly well. He was just started a few weeks ago. 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 fib coronary artery disease, diabetes, history of DVT, hypertension. He has coronary artery disease, history of NM, peripheral vascular disease, history of left BKA. PAST SURGICAL HISTORY: Kidney transplant x2, cataract surgery, left BKA, angioplasty lower extremity, gastric bypass, right great toe amputation, [place] filter placement. Medications prior to admission include vitamin D3, Prograf, Ecotrin, Lipitor, Calcitriol, insulin, Lasix, Myfortic, Coumadin. Allergies include CODEINE, which causes constipation. It is more of an intolerance. On examination, the patient is comfortable, awake, alert, oriented x3. He is not in any acute distress. Blood pressure is 98/40, heart rate 62 per minute. He is afebrile. EXAMINATION OF THE HEART: S1 and S2. EXAMINATION OF THE LUNGS: Bilateral breath sounds are heard. ABDOMEN: Soft, nontender. Examination of the lower extremities shows edema, 3+ in the right lower extremity and left lower extremity. Patient also has left BKA. METALLURGICAL OR MATERIALS TECHNICIAN exam is grossly intact. The patient is moving all 4 extremities. Labs show sodium 135, potassium 4.1, chloride 103. Hemoglobin 9.5 grams/dL. ASSESSMENT: 1. End-stage renal disease, currently maintained on peritoneal dialysis, which was just started a couple of weeks ago. Patient is tolerating his treatments well. He has good UF. I will increase the exchanges to 2.5% alternating with 4.25% solutions for volume overload. 2. Anemia of chronic disease. 3. Chronic kidney disease bone mineral disorder, maintained on Rocaltrol, which we will continue. 4. History of previous kidney transplant with a donor allograft from 2010 with chronic allograft nephropathy. I will continue with the current immunosuppression and we will taper down the Prograf as outpatient. 5. Volume overload. Add IV Lasix along with increasing the UF through his PD. PLAN: Add IV Lasix and change dialysate to 4.25% alternating with 2.5% solutions. Continue current immunosuppressive medications.We will decrease the Prograf as outpatient. Thank you for this consultation. We will continue to follow the patient with you during his hospitalization. EVE
[2016-12-19] MEDS ORDERED: DIALYSIS (PERIT 2.5%) 2,000 ML 50 G/2,000 ML BAG INTRAPERIT SCH (08:00)
[2016-12-19] MEDS: PIPERACILLIN-TAZOBACTAM 3.375 GM in DEXTROSE/WATER 1 50ML.BAG IVPB SCH ×2 (08:22→20:42)
[2016-12-19] MEDS: BACITRACIN 500 UNIT/GM OINT 28.4 GM TUBE TOPICAL SCH (08:22)
[2016-12-19] MEDS: CALCITRIOL 0.25 MCG CAP PO SCH ×2 (08:22→20:38)
[2016-12-19] MEDS: FUROSEMIDE 10 MG/ML 10 ML VIAL IV SCH ×2 (08:22→20:39)
[2016-12-19] MEDS: MAGNESIUM OXIDE 400 MG TAB PO SCH (08:23)
[2016-12-19] MEDS: MYCOPHENOLATE SODIUM DR 180 MG TABLET.DR PO SCH (08:23)
[2016-12-19] MEDS: CHOLECALCIFEROL 1,000 UNIT TAB PO SCH ×2 (08:23→20:38)
[2016-12-19] MEDS: DOCUSATE 100 MG CAP PO SCH ×3 (08:23→20:39)
[2016-12-19] MEDS: TACROLIMUS 1 MG CAP PO SCH ×2 (08:24→20:40)
[2016-12-19] MEDS: predniSONE 5 MG TAB PO SCH (08:24)
[2016-12-19] MEDS: SODIUM BICARBONATE TAB 650 MG TAB PO SCH ×2 (08:24→20:39)
[2016-12-19] MEDS: VIT A,C & E-LUTEIN-MINERALS 1 EACH TAB PO SCH ×2 (08:24→20:40)
[2016-12-19 09:50] VITALS: BMI 25.9
[2016-12-19 11:54] LABS: Glucose,Whole Blood 131 mg/dL (75-99)
--- NOTE | 2016-12-19 12:03 | P.PN ---
Subjective This is a 61-year-old male with a known past medical history of chronic renal failure with right kidney transplant. He was started on peritoneal dialysis about a week ago. He also has a known history of congestive heart failure, diabetes mellitus type 2, coronary artery disease and previous coronary artery bypass grafting, atrial fibrillation in which she is on Coumadin, peripheral vascular disease, DVT of the lower extremity and has [place] filter placed, hypertension and hyperlipidemia. Patient presented to Dr. Mosquera's office with not feeling well and having cough and lower extremity swelling. He was a direct admit to the hospital for possible pneumonia. Chest x-ray is showing a bilateral infiltrate with tiny effusion. Patient reports the cough is nonproductive. He denies any chest pain or shortness of breath. However he has noted about a 40 pound weight gain over the last week. He reports significant swelling in both his legs. He has a left below the knee amputation that has also had some swelling. He denies any chest pain. Denies any fever or sweats. Denies any nausea or vomiting. Denies any bowel movement changes or urinary symptoms. Patient does report being cold with chills. Patient was also hypoglycemic with a blood sugar of 68 on admission. He was given food and orange juice. Blood sugars slowly coming up. Patient reports that his blood sugar was low this morning. He ate a few candies and then his blood sugar was in the 300s. He took about 12 units of Humalog before coming to the hospital. He also reports that he's been doing the peritoneal dialysis at home and the amount of fluid that he is putting and with dialysis is more than what he is getting out. Nephrology has been consulted. Patient will be placed on IV antibiotics for possible pneumonia. 12/19/2016 patient reports some improvement in his cough. He is currently on IV Zosyn for his pneumonia. He was seen by nephrology they have adjusted the dialysis settings. Still has swelling in his lower extremities. Patient refuses to drink the Glucerna. He states that he will eat eggs for his protein source. Patient denies any chest pain or shortness of breath. Denies any nausea or vomiting. Reports regular bowel movements. Denies any difficulty urinating. Objective - Vital Signs Vital signs: Vital Signs Temp 98 F 12/19/16 08:10 Pulse 97 12/19/16 11:38 Resp 16 12/19/16 11:39 BP 126/53 12/19/16 11:38 Pulse Ox 97 12/19/16 11:38 Intake & Output 12/18/16 12/19/16 12/19/16 18:59 06:59 18:59 Intake Total 530 90 230 Output Total 175 850 400 Balance 198 -772 -419 Weight 95.2 kg 91.9 kg 91.9 kg Intake: IV 90 0.9 40 Piperacillin-Tazobactam 3 50 .375 gm In Dextrose/Water 1 50ml.bag @ 12.5 mls/hr IVPB Q12HR [facility] Rx#: [id number] Intake, IV Titration 50 50 Amount Piperacillin-Tazobactam 3 50 50 .375 gm In Dextrose/Water 1 50ml.bag @ 12.5 mls/hr IVPB Q12HR [facility] Rx#: [id number] Oral 480 180 Output: Urine 175 850 400 Other: Voiding Method Urinal Urinal # Voids 1 # Bowel Movements 1 1 - Exam Head normocephalic Neck supple Lungs improving crackles on the left lung Heart regular rate and rhythm S1-S2, no rub or gallop Abdomen is soft nontender nondistended positive bowel sounds no hepatosplenomegaly Extremities right leg +1 to +2 pitting edema. Some abrasions noted along the right tibia. No drainage. Right second toe small wound no evidence of infection Neuro alert and orientated to 3 - Labs CBC & Chem 7: 12/19/16 05:48 12/19/16 05:48 Labs: Abnormal Lab Results - Last 24 Hours (Table) 12/18/16 12/18/16 12/18/16 Range/Units 12:08 12:23 13:30 RBC 3.10 L (4.30-5.90) m/uL Hgb 9.5 L (13.0-17.5) gm/dL Hct 31.5 L (39.0-53.0) % MCV 101.5 H (80.0-100.0) fL MCHC 30.1 L (31.0-37.0) g/dL RDW 16.0 H (11.5-15.5) % Plt Count (150-450) k/uL Lymphocytes # 0.4 L (1.0-4.8) k/uL PT (9.0-12.0) sec Sodium (137-145) mmol/L BUN (9-20) mg/dL Creatinine (0.66-1.25) mg/dL POC Glucose (mg/dL) 53 L 68 L (75-99) mg/dL Calcium (8.4-10.2) mg/dL Total Protein (6.3-8.2) g/dL Albumin (3.5-5.0) g/dL 12/18/16 12/18/16 12/18/16 Range/Units 13:30 13:30 14:18 RBC (4.30-5.90) m/uL Hgb (13.0-17.5) gm/dL Hct (39.0-53.0) % MCV (80.0-100.0) fL MCHC (31.0-37.0) g/dL RDW (11.5-15.5) % Plt Count (150-450) k/uL Lymphocytes # (1.0-4.8) k/uL PT 13.0 H (9.0-12.0) sec Sodium 135 L (137-145) mmol/L BUN 42 H (9-20) mg/dL Creatinine 2.90 H (0.66-1.25) mg/dL POC Glucose (mg/dL) 63 L (75-99) mg/dL Calcium 8.3 L (8.4-10.2) mg/dL Total Protein 4.2 L (6.3-8.2) g/dL Albumin 2.2 L (3.5-5.0) g/dL 12/18/16 12/18/16 12/19/16 Range/Units 16:52 21:03 05:48 RBC 2.67 L (4.30-5.90) m/uL Hgb 8.3 L (13.0-17.5) gm/dL Hct 26.9 L (39.0-53.0) % MCV 100.9 H (80.0-100.0) fL MCHC 30.9 L (31.0-37.0) g/dL RDW (11.5-15.5) % Plt Count 147 L (150-450) k/uL Lymphocytes # 0.5 L (1.0-4.8) k/uL PT (9.0-12.0) sec Sodium (137-145) mmol/L BUN (9-20) mg/dL Creatinine (0.66-1.25) mg/dL POC Glucose (mg/dL) 132 H 204 H (75-99) mg/dL Calcium (8.4-10.2) mg/dL Total Protein (6.3-8.2) g/dL Albumin (3.5-5.0) g/dL 12/19/16 12/19/16 12/19/16 Range/Units 05:48 05:48 06:01 RBC (4.30-5.90) m/uL Hgb (13.0-17.5) gm/dL Hct (39.0-53.0) % MCV (80.0-100.0) fL MCHC (31.0-37.0) g/dL RDW (11.5-15.5) % Plt Count (150-450) k/uL Lymphocytes # (1.0-4.8) k/uL PT 16.2 H (9.0-12.0) sec Sodium 136 L (137-145) mmol/L BUN 39 H (9-20) mg/dL Creatinine 2.98 H (0.66-1.25) mg/dL POC Glucose (mg/dL) 119 H (75-99) mg/dL Calcium 7.9 L (8.4-10.2) mg/dL Total Protein 3.5 L (6.3-8.2) g/dL Albumin 1.7 L (3.5-5.0) g/dL Microbiology - Last 24 Hours (Table) 12/18/16 12:53 Gram Stain - Preliminary Peritoneal Fluid Body Fluid Culture - Preliminary Assessment and Plan Plan: 1. Pneumonia with nonproductive cough. Chest x-ray showing bilateral infiltrate. Start Zosyn and consult Dr. Nino in pulmonary service 2. Acute systolic CHF exacerbation: Nephrology started patient on IV Lasix 60 mg every 12 hours. They've also adjusted his dialysis settings. Patient had Bilateral lower extremity edema with 40 pound weight gain. BNP level elevated. Last echo September 2016 with EF of 45-50%. Patient has low albumin level that could also be contributing to some of his edema 3. Chronic kidney disease stage IV with history of right kidney transplant secondary to renal failure from his diabetes mellitus. Patient recently started on urgent dialysis a week ago. Nephrology following. They've adjusted peritoneal Dialysis settings 4. Diabetes mellitus type 2: Episodes of hypoglycemia likely related to poor oral intake. Hypoglycemia resolved. Continue sliding scale coverage. Hemoglobin A1c 4.7 5. Chronic atrial fibrillation: Anticoagulated with Coumadin. INR 1.7. Give Coumadin 5 mg tonight. Check PT/INR in a.m. 6. History of morbid obesity status post gastric bypass in the 7. History of peripheral vascular disease secondary to his diabetes mellitus. Patient has required left below-knee amputation. 8. History of DVT with previous [place] filter placement 9. History of essential hypertension 10. History of coronary artery disease with previous coronary artery bypass grafting 2009 11. Anemia of chronic kidney disease. Hemoglobin dropped 8.3. Check iron studies 12. Severe protein calorie malnutrition . Patient refusing Glucerna shakes. Encouraged patient to increase protein intake I performed an examination of the patient and discussed their management with the physician [place]. I have reviewed the Physician [place]'s notes and agree with the documented findings and plan of care
--- NOTE | 2016-12-19 12:16 | P.CNPUL ---
History of Present Illness Consult date: 12/19/16 Reason for consult: dyspnea, cough, pneumonia, abnormal CXR/CT Chief complaint: Cough with lower extremity edema History of present illness: Consult dated 12/19/2016 This is a 61-year-old male with a history of chronic renal failure, currently on peritoneal dialysis. He has a previous history of right kidney transplant. He usually goes dialysis 4 times a day. His total at times about 4 hours. He also has a history of CHF diabetes CAD previous bypass grafting atrial fibrillation peripheral vascular occlusive disease DVT of the lower extremity and [place] filter placement. Also has a history of essential hypertension and hyperlipidemia. He apparently saw Dr. Mosquera yesterday with complaints of swelling of his lower extremities and cough. He was also having chills. Feeling very cold. He felt like he was having pneumonia as his had pneumonia in the past. The cough was nonproductive. I don't believe he has had a temperature elevation although he states his temperature was 99.7. For that reason, Dr. Mosquera sent him over to the hospital as a direct admit. Chest x- ray revealed probable fluid overload and/or infiltrate in the left base. Chest x-rays not really impressive though. Could just be a bronchitis or just fluid overload. He seems to think that he has had or will develop pneumonia. Review of Systems A 12 point review of system is positive for nonproductive cough shortness of breath fever chills feeling cold and lower extremity edema. Past Medical History Past Medical History: Atrial Fibrillation, Coronary Artery Disease (CAD), Heart Failure, Diabetes Mellitus, Dialysis, Deep Vein Thrombosis (DVT), GERD/Reflux, Hyperlipidemia, Hypertension, Myocardial Infarction (AK), Osteoarthritis (OA), Pneumonia, Renal Disease, Thyroid Disorder, Vascular Disorder Additional Past Medical History / Comment(s): TAKES NO CURRENT MEDS FOR THYROID , STATES HAS ONE CURRENT KIDNEY TRANSPLANT THAT IS FAILING. HAS LEFT BELOW KNEE PROSTHESIS, ANEMIA,"RECENT BX,PT BELEIVES IT WAS THE TEMPEROL ARTERY" AND STATES HE HAS LOST THE VISON IN RT EYE SINCE, GLAUCOMA. Last Myocardial Infarction Date:: 2009 History of Any Multi-Drug Resistant Organisms: None Reported Past Surgical History: Adenoidectomy, Bariatric Surgery, Coronary Bypass/CABG, Heart Catheterization, Tonsillectomy Additional Past Surgical History / Comment(s): jamarcus fliter, kidney transplant-X2,CABG-2010 TRIPLE, gastric bypass, RT great toe amputation , [place] CATARACTS, RIGHT carotid endarterectomy, amputation lt BKA,angioplasty to the popliteal artery and posterior left femoral artery performed by Dr. Fowler on , RECENT BX-PT BELIEVES IT WAS OF THE RT TEMPERAL ARTERY. Past Anesthesia/Blood Transfusion Reactions: No Reported Reaction Additional Past Anesthesia/Blood Transfusion Reaction / Comment(s): HX BLOOD TRANSFUSIONS- NO REACTIONS . Smoking Status: Never smoker - Past Family History Father Family Medical History: Diabetes Mellitus, Dialysis Additional Family Medical History / Comment(s): "big heart", bilat BKA Mother Family Medical History: Cancer Additional Family Medical History / Comment(s): colon Medications and Allergies Home Medications Medication Instructions Recorded Confirmed Type Cholecalciferol [Vitamin D3] 2,000 mg PO BID 05/17/14 12/18/16 History Sodium Bicarbonate Tab 650 mg PO BID 05/17/14 12/18/16 History Tacrolimus [Prograf] 2 mg PO BID 12/06/14 12/18/16 History Magnesium Gluconate [Magonate] 500 mg PO DAILY 02/01/15 12/18/16 History Aspirin EC [Ecotrin Low Dose] 81 mg PO HS 02/12/16 12/18/16 History Atorvastatin [Lipitor] 80 mg PO HS 02/12/16 12/18/16 History Calcitriol 1 mcg PO BID 02/12/16 12/18/16 History Vit C/E/Zn/Coppr/Lutein/Zeaxan 1 cap PO BID 02/12/16 12/18/16 History [Preservision Areds 2 Softgel] Temazepam [Restoril] 15 mg PO HS 07/18/16 12/18/16 History INSULIN LISPRO (HumaLOG) [humaLOG] See Protocol SQ ACHS 07/19/16 12/18/16 History Furosemide [Lasix] 40 mg PO DAILY 08/19/16 12/18/[address] [Myfortic] 360 mg PO DAILY 09/15/16 12/18/16 History Warfarin [Coumadin] 1 mg PO DAILY 11/12/16 12/18/16 History Allergies Allergy/AdvReac Type Severity Reaction Status Date / Time codeine AdvReac Severe constipatio Verified 12/18/16 12:25 n Physical Exam Osteopathic Statement: *. No significant issues noted on an osteopathic structural exam other than those noted in the History and Physical/Consult. Vitals: Vital Signs Temp Pulse Pulse Resp BP BP Pulse Ox 12/19/16 11:39 16 12/19/16 11:38 97 16 126/53 97 12/19/16 08:10 98 F 73 16 100/57 98 12/19/16 04:15 97.8 F 62 17 98/40 97 12/19/16 04:00 97.8 F 62 17 98/40 97 12/19/16 00:00 98.4 F 68 18 114/58 97 12/18/16 23:50 98.8 F 65 18 122/99 94 L 12/18/16 20:00 99.3 F 74 18 120/42 96 12/18/16 15:00 98.8 F 90 16 118/62 98 Intake and Output 12/18/16 12/19/16 12/19/16 22:59 06:59 14:59 Intake Total 480 90 230 Output Total 175 850 400 Balance 305 -760 -170 Intake: IV 90 0.9 40 Piperacillin-Tazobactam 3 50 .375 gm In Dextrose/Water 1 50ml.bag @ 12.5 mls/hr IVPB Q12HR [facility] Rx#: [id number] Intake, IV Titration 50 Amount Piperacillin-Tazobactam 3 50 .375 gm In Dextrose/Water 1 50ml.bag @ 12.5 mls/hr IVPB Q12HR [facility] Rx#: [id number] Oral 480 180 Output: Urine 175 850 400 Other: Voiding Method Urinal Urinal # Bowel Movements 1 Weight 95.2 kg 91.9 kg 91.9 kg Patient Weight 12/20/16 06:59 Weight 91.9 kg No acute distress, oriented 3. Looks very comfortable laying in bed. Head upright. HEENT examination is grossly unremarkable. Mucous membranes are moist. No oral lesions. Neck supple. Full range of motion. No adenopathy or thyromegaly. Neck veins are flat. Cardiovascular examination reveals regular rhythm rate. S1-S2 normal. No S3- S4 murmur. Lungs reveal mostly clear breath sounds. A few scattered rhonchi. Some mild X23 crackles. No wheezes. Breath sounds are equal bilaterally. Abdomen soft bowel sounds are heard. Peritoneal dialysis catheter is noted. Extremities are intact. He does have an amputation on the left lower extremity. Right lower extremity is quite edematous. Some erythema and hyperemia noted. Brief neurologic examination nonfocal. Skin without any significant rash. Results - Laboratory Findings CBC and BMP: 12/19/16 05:48 12/19/16 05:48 PT/INR, D-dimer PT 16.2 sec (9.0-12.0) H 12/19/16 05:48 INR 1.7 (<1.1) 12/19/16 05:48 Abnormal lab findings: Abnormal Labs 12/18/16 12/18/16 12/18/16 12:08 12:23 13:30 RBC 3.10 L Hgb 9.5 L Hct 31.5 L MCV 101.5 H MCHC 30.1 L RDW 16.0 H Plt Count Lymphocytes # 0.4 L PT Sodium BUN Creatinine POC Glucose (mg/dL) 53 L 68 L Calcium Total Protein Albumin 12/18/16 12/18/16 12/18/16 13:30 13:30 14:18 RBC Hgb Hct MCV MCHC RDW Plt Count Lymphocytes # PT 13.0 H Sodium 135 L BUN 42 H Creatinine 2.90 H POC Glucose (mg/dL) 63 L Calcium 8.3 L Total Protein 4.2 L Albumin 2.2 L 12/18/16 12/18/16 12/19/16 16:52 21:03 05:48 RBC 2.67 L Hgb 8.3 L Hct 26.9 L MCV 100.9 H MCHC 30.9 L RDW Plt Count 147 L Lymphocytes # 0.5 L PT Sodium BUN Creatinine POC Glucose (mg/dL) 132 H 204 H Calcium Total Protein Albumin 12/19/16 12/19/16 12/19/16 05:48 05:48 06:01 RBC Hgb Hct MCV MCHC RDW Plt Count Lymphocytes # PT 16.2 H Sodium 136 L BUN 39 H Creatinine 2.98 H POC Glucose (mg/dL) 119 H Calcium 7.9 L Total Protein 3.5 L Albumin 1.7 L 12/19/16 11:43 RBC Hgb Hct MCV MCHC RDW Plt Count Lymphocytes # PT Sodium BUN Creatinine POC Glucose (mg/dL) 131 H Calcium Total Protein Albumin - Diagnostic Findings Chest x-ray: image reviewed (Chest x-rays labs medications are all reviewed.) Assessment and Plan (1) Acute renal failure Status: Acute (2) Atrial fibrillation Status: Acute (3) CAD (coronary artery disease) Status: Acute (4) CKD (chronic kidney disease) Status: Acute (5) Cellulitis of left lower extremity Status: Acute (6) Diabetes mellitus Status: Acute (7) Fever Status: Acute (8) HTN (hypertension) Status: Acute (9) History of coronary artery bypass graft Status: Acute (10) History of kidney transplant Status: Acute (11) History of left below knee amputation Status: Acute (12) Hx of CABG Status: Acute (13) Peripheral vascular occlusive disease Status: Acute (14) Pneumonia Status: Acute Plan: Plan dated 12/19/2016 The patient actually looks very stable. The patient was started on antibiotics. We'll continue to follow. Prognosis is guarded. He is being treated for both possible pneumonia/bronchitis as well as cellulitis. Additional recommendations suggestions are forthcoming. Time with Patient: Greater than 30
[2016-12-19 12:39] LABS: % Iron Saturation 10.6 % (20-50)
[2016-12-19] MEDS ORDERED: DIALYSIS (PERIT 4.25%) 2000 ML 85 G/2,000 ML BAG INTRAPERIT ONE (13:00)
[2016-12-19 16:51] LABS: Glucose,Whole Blood 139 mg/dL (75-99)
[2016-12-19] MEDS ORDERED: WARFARIN 5 MG TAB PO ONE (18:00)
--- NOTE | 2016-12-19 18:53 | CONS ---
DATE OF CONSULTATION: 12/19/2016 REASON FOR CONSULTATION: Possible pneumonia and antibiotic recommendations. HISTORY OF PRESENT ILLNESS: The patient is a 61-year-old male with a past medical history significant for end-stage renal disease. The patient is status post failed renal transplant x2. Currently he is being treated with peritoneal dialysis. The patient presented to his PCP's office with the chief complaints of not feeling well and having a cough. The patient's cough was non- productive, with no significant chest pain, though he did complain of some pain in the back area. The patient was also noticed to have more swelling on his right leg with some redness, but no significant pain in the leg. Subsequently the patient was evaluated by the admitting services. The patient did have a chest x-ray that was suggestive of a bilateral infiltrate and a tiny effusion. The patient had no fever on presentation and he did not have an elevated white count. He was treated with Zosyn. ID was consulted for further recommendations regarding antibiotic therapy. As of this afternoon, the patient remains febrile. He is feeling better. His coughing in much improved; very mild and nonproductive. No chest pain. Breathing is baseline. No significant shortness of breath. No abdominal pain. The patient has been tolerating his peritoneal dialysis and the fluid is clear. Analysis was done which did not show significant leukocyte esterase in the peritoneal fluid. The right leg swelling has improved and the redness has decreased. REVIEW OF SYSTEMS: Positive for weakness. No high-grade fever. EYES: No complaint. ENT: No complaint. RESPIRATORY: As per HPI. CARDIOVASCULAR: No complaint. GENITOURINARY: No complaint. GASTROINTESTINAL: No complaint. MUSCULOSKELETAL: No complaint. INTEGUMENTARY: As per HPI. PSYCHOLOGIC: No complaint. ENDOCRINE: No complaint. NEUROLOGIC: No complaint. Past medical history is significant for: 1. Atrial fibrillation. 2. Coronary artery disease. 3. Diabetes mellitus. 4. End-stage renal disease, on peritoneal dialysis. 5. DVT. 6. Hypertension. 7. Hyperlipidemia. 8. ND. 9. Hypothyroidism. 10. CAD. 11. Pneumonia. PAST SURGICAL HISTORY: 1. Renal transplants x2. 2. Left below-knee amputation. 3. Peritoneal dialysis catheter placement. 4. Coronary artery bypass grafting. 5. Heart catheterization. 6. Tonsillectomy. 7. Adenoidectomy. 8. Bariatric surgery. 9. Melissa filter placement. SOCIAL HISTORY: No history of smoking, drinking or drug use. FAMILY HISTORY: Father with history of diabetes. Mother with history of colon cancer. ALLERGIES: CODEINE. Medications current include: 1. Coumadin. 2. Restoril. 3. Prograf. 4. Prednisone. 5. Piperacillin tazobactam. 6. Mycophenolate. 7. Humalog. 8. Lasix. 9. Colace. 10. Vitamin D3. 11. Lipitor. 12. Aspirin. On examination, blood pressure is 115/55 with a pulse of 68, temperature 98.2. He is 98% on room air. General description is a middle-aged male up in the bed in no distress. No tachypnea or accessory muscle of respiration use. HEENT examination shows slight pallor. No scleral icterus. Oral mucous membrane is dry. NECK: Trachea is central. No thyromegaly. LUNGS: Unlabored breathing. Clear to auscultation anteriorly. No wheeze or crackle. HEART: S1, S2. Regular rate and rhythm. ABDOMEN: Soft. No guarding. No rigidity. No tenderness. EXTREMITIES: Right leg with some swelling and minimal erythema. Slightly warm to touch. No ( ) no drainage. Neurologically patient is awake, alert, oriented x3. Mood and affect normal. LABS: Hemoglobin 8.3, white count of 3.8 with a BUN of 39, creatinine 2.98. Patient did have peritoneal fluid with a white count of only 1. It was colorless. Both cultures negative. No blood culture obtained. No sputum cultures. DIAGNOSTIC IMPRESSION AND PLAN: Patient admitted to hospital with generalized not feeling well. Did have a mild cough with evidence of bilateral atelectasis and some effusion. The patient also had a 40-pound weight gain with significant swelling of the right leg and some evidence of cellulitis not entirely excluded , though pneumonia not likely, but cannot be entirely excluded, with overall improvement on Zosyn. PLAN: The patient will continue on Zosyn; however, the patient showed overall clinical improvement. If he ready to be discharged by primary and other consultants ( ), antibiotic for discharge will be Augmentin for at least 7 to 10 days. Thank you for this consultation. Will follow this patient along with you. EVE
[2016-12-19] MEDS: ATORVASTATIN 80 MG TAB PO SCH (20:38)
[2016-12-19] MEDS: ASPIRIN 81 MG CHEW PO SCH (20:38)
[2016-12-19 21:32] LABS: Glucose,Whole Blood 148 mg/dL (75-99)
[2016-12-19] MEDS: TEMAZEPAM 15 MG CAP PO SCH (23:51)
[2016-12-20] MEDS: DIALYSIS (PERIT 2.5%) 2,000 ML 50 G/2,000 ML BAG INTRAPERIT SCH ×5 (04:06→19:46)
[2016-12-20 06:12] LABS: Glucose,Whole Blood 154 mg/dL (75-99)
[2016-12-20] MEDS: INSULIN LISPRO (humaLOG) 300 UNIT/3 ML VIAL SQ SCH ×4 (06:55→21:37)
[2016-12-20 06:56] LABS: Basophils % (A) 0 %; CHCM 29.8; Eosinophils % (A) 1 %; HCT 29.4 % (39.0-53.0); HDW 2.89; HGB 8.7 gm/dL (13.0-17.5); Hypochromasia Marked; Luc # (Auto) 0.09; Luc % (Auto) 2; Lymphocytes # (A) 0.5 k/uL (1.0-4.8); Lymphocytes % (A) 13 %; MCH 29.8 pg (25.0-35.0); MCHC 29.5 g/dL (31.0-37.0); MCV 101.2 fL (80.0-100.0); Macrocytosis Slight; Mean Platelet Volume 9.4; Monocytes # (A) 0.4 k/uL (0-1.0); Monocytes % (A) 11 %; Neutrophils # (A) 2.8 k/uL (1.3-7.7); Neutrophils % (A) 73 %; RDW 15.5 % (11.5-15.5); WBC 3.8 k/uL (3.8-10.6); WBC (Perox) 3.94
[2016-12-20 07:08] LABS: INR 2.7 (<1.2); Prothrombin Time 26.3 sec (9.0-12.0)
[2016-12-20 07:28] LABS: Calcium 8.1 mg/dL (8.4-10.2); Potassium 3.7 mmol/L (3.5-5.1); Total Bilirubin 0.2 mg/dL (0.2-1.3); Total Protein 3.7 g/dL (6.3-8.2)
[2016-12-20] MEDS: CHOLECALCIFEROL 1,000 UNIT TAB PO SCH ×2 (08:27→21:35)
[2016-12-20] MEDS: CALCITRIOL 0.25 MCG CAP PO SCH ×2 (08:27→21:34)
[2016-12-20] MEDS: FUROSEMIDE 10 MG/ML 10 ML VIAL IV SCH ×2 (08:28→21:35)
[2016-12-20] MEDS: MYCOPHENOLATE SODIUM DR 180 MG TABLET.DR PO SCH (08:28)
[2016-12-20] MEDS: MAGNESIUM OXIDE 400 MG TAB PO SCH (08:28)
[2016-12-20] MEDS: predniSONE 5 MG TAB PO SCH (08:28)
[2016-12-20] MEDS: TACROLIMUS 1 MG CAP PO SCH ×2 (08:29→21:37)
[2016-12-20] MEDS: SODIUM BICARBONATE TAB 650 MG TAB PO SCH ×2 (08:29→21:34)
[2016-12-20] MEDS: DOCUSATE 100 MG CAP PO SCH ×2 (08:30→21:37)
[2016-12-20] MEDS: BACITRACIN 500 UNIT/GM OINT 28.4 GM TUBE TOPICAL SCH (08:30)
[2016-12-20] MEDS: VIT A,C & E-LUTEIN-MINERALS 1 EACH TAB PO SCH ×2 (08:33→21:34)
--- NOTE | 2016-12-20 08:39 | P.PN ---
Subjective Patient is seen in follow-up for end-stage renal disease. He is maintained on peritoneal dialysis. 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 Patient presented with weight gain. He is also somewhat dyspneic with a productive cough. He states coughing is improved. Dyspnea is mostly resolved. His weight is also trending down. There is no evidence of peritonitis. Vital signs are stable. General: The patient appeared well nourished and normally developed. HEENT: Head exam is unremarkable. Neck is without jugular venous distension. LUNGS: Lungs are clear to auscultation and percussion. Breath sounds decreased. HEART: Rate and Rhythm are regular. First and second heart sounds normal. No murmurs, rubs or gallops. ABDOMEN: Abdominal exam reveals normal bowel sounds. Non-tender and non- distended. No evidence of peritonitis. EXTREMITITES: Trace edema. Left below the knee amputation noted. Objective - Vital Signs Vital signs: Vital Signs Temp 97.6 F 12/20/16 08:00 Pulse 88 12/20/16 08:00 Resp 16 12/20/16 08:00 BP 117/62 12/20/16 08:00 Pulse Ox 100 12/20/16 08:00 Intake & Output 12/19/16 12/20/16 12/20/16 18:59 06:59 18:59 Intake Total 430 50 180 Output Total 1450 1425 Balance -1020 -1375 180 Weight 91.9 kg 130.2 kg Intake: IV 50 Piperacillin-Tazobactam 3 50 .375 gm In Dextrose/Water 1 50ml.bag @ 12.5 mls/hr IVPB Q12HR [facility] Rx#: [id number] Intake, IV Titration 50 Amount Piperacillin-Tazobactam 3 50 .375 gm In Dextrose/Water 1 50ml.bag @ 12.5 mls/hr IVPB Q12HR [facility] Rx#: [id number] Oral 380 180 Output: Urine 1450 1425 Other: Voiding Method Urinal Urinal # Voids 2 - Labs CBC & Chem 7: 12/20/16 05:43 12/20/16 05:43 Labs: Abnormal Lab Results - Last 24 Hours (Table) 12/19/16 12/19/16 12/19/16 Range/Units 05:48 11:43 16:45 RBC (4.30-5.90) m/uL Hgb (13.0-17.5) gm/dL Hct (39.0-53.0) % MCV (80.0-100.0) fL MCHC (31.0-37.0) g/dL Lymphocytes # (1.0-4.8) k/uL PT (9.0-12.0) sec INR (<1.2) BUN (9-20) mg/dL Creatinine (0.66-1.25) mg/dL POC Glucose (mg/dL) 131 H 139 H (75-99) mg/dL Calcium (8.4-10.2) mg/dL Iron 15 L (49-181) ug/dL TIBC 141 L (261-462) ug/dL % Saturation 10.6 L (20-50) % Total Protein (6.3-8.2) g/dL Albumin (3.5-5.0) g/dL 12/19/16 12/20/16 12/20/16 Range/Units 21:17 05:43 05:43 RBC 2.90 L (4.30-5.90) m/uL Hgb 8.7 L (13.0-17.5) gm/dL Hct 29.4 L (39.0-53.0) % MCV 101.2 H (80.0-100.0) fL MCHC 29.5 L (31.0-37.0) g/dL Lymphocytes # 0.5 L (1.0-4.8) k/uL PT 26.3 H (9.0-12.0) sec INR 2.7 H (<1.2) BUN (9-20) mg/dL Creatinine (0.66-1.25) mg/dL POC Glucose (mg/dL) 148 H (75-99) mg/dL Calcium (8.4-10.2) mg/dL Iron (49-181) ug/dL TIBC (261-462) ug/dL % Saturation (20-50) % Total Protein (6.3-8.2) g/dL Albumin (3.5-5.0) g/dL 12/20/16 12/20/16 Range/Units 05:43 06:09 RBC (4.30-5.90) m/uL Hgb (13.0-17.5) gm/dL Hct (39.0-53.0) % MCV (80.0-100.0) fL MCHC (31.0-37.0) g/dL Lymphocytes # (1.0-4.8) k/uL PT (9.0-12.0) sec INR (<1.2) BUN 37 H (9-20) mg/dL Creatinine 2.97 H (0.66-1.25) mg/dL POC Glucose (mg/dL) 154 H (75-99) mg/dL Calcium 8.1 L (8.4-10.2) mg/dL Iron (49-181) ug/dL TIBC (261-462) ug/dL % Saturation (20-50) % Total Protein 3.7 L (6.3-8.2) g/dL Albumin 1.8 L (3.5-5.0) g/dL Microbiology - Last 24 Hours (Table) 12/18/16 12:53 Gram Stain - Preliminary Peritoneal Fluid Body Fluid Culture - Preliminary Assessment and Plan Plan: Assessment: #1. End-stage renal disease maintained on peritoneal dialysis. #2. Volume overload. Improving. #3. Dyspnea related to fluid overload as well as possible underlying pneumonia. #4. Anemia of chronic kidney disease. Iron deficiency noted. #5. 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 Plan: Continue with 2 L exchanges alternating with 2.5 and 4.25% dextrose solutions. Antibiotics per infectious disease recommendations. Maintain IV Lasix while in the hospital. Can be transitioned oral upon discharge. Ferrlicit 125 mg IV daily for 3 days. First dose today. Maintain Aranesp. Maintain immunosuppression for now. Will be tapered as an outpatient.
--- NOTE | 2016-12-20 09:01 | P.PN ---
Subjective This is a 61-year-old male with a known past medical history of chronic renal failure with right kidney transplant. He was started on peritoneal dialysis about a week ago. He also has a known history of congestive heart failure, diabetes mellitus type 2, coronary artery disease and previous coronary artery bypass grafting, atrial fibrillation in which she is on Coumadin, peripheral vascular disease, DVT of the lower extremity and has [place] filter placed, hypertension and hyperlipidemia. Patient presented to Dr. Mosquera's office with not feeling well and having cough and lower extremity swelling. He was a direct admit to the hospital for possible pneumonia. Chest x-ray is showing a bilateral infiltrate with tiny effusion. Patient reports the cough is nonproductive. He denies any chest pain or shortness of breath. However he has noted about a 40 pound weight gain over the last week. He reports significant swelling in both his legs. He has a left below the knee amputation that has also had some swelling. He denies any chest pain. Denies any fever or sweats. Denies any nausea or vomiting. Denies any bowel movement changes or urinary symptoms. Patient does report being cold with chills. Patient was also hypoglycemic with a blood sugar of 68 on admission. He was given food and orange juice. Blood sugars slowly coming up. Patient reports that his blood sugar was low this morning. He ate a few candies and then his blood sugar was in the 300s. He took about 12 units of Humalog before coming to the hospital. He also reports that he's been doing the peritoneal dialysis at home and the amount of fluid that he is putting and with dialysis is more than what he is getting out. Nephrology has been consulted. Patient will be placed on IV antibiotics for possible pneumonia. 12/19/2016 patient reports some improvement in his cough. He is currently on IV Zosyn for his pneumonia. He was seen by nephrology they have adjusted the dialysis settings. Still has swelling in his lower extremities. Patient refuses to drink the Glucerna. He states that he will eat eggs for his protein source. Patient denies any chest pain or shortness of breath. Denies any nausea or vomiting. Reports regular bowel movements. Denies any difficulty urinating. On 12/20/2016 patient reports improvement in shortness of breath and cough he reports improvement in his lower extremity swelling. He is maintained on IV Zosyn for pneumonia, he is also receiving IV Lasix and receiving peritoneal dialysis. He is complaining of burn after he spilled coffee on his genital area 2 weeks ago otherwise no complaints at this time Objective - Vital Signs Vital signs: Vital Signs Temp 97.6 F 12/20/16 08:00 Pulse 88 12/20/16 08:00 Resp 16 12/20/16 08:00 BP 117/62 12/20/16 08:00 Pulse Ox 100 12/20/16 08:00 Intake & Output 12/19/16 12/20/16 12/20/16 18:59 06:59 18:59 Intake Total 430 50 180 Output Total 1450 1425 Balance -1020 -1375 180 Weight 91.9 kg 130.2 kg Intake: IV 50 Piperacillin-Tazobactam 3 50 .375 gm In Dextrose/Water 1 50ml.bag @ 12.5 mls/hr IVPB Q12HR [facility] Rx#: [id number] Intake, IV Titration 50 Amount Piperacillin-Tazobactam 3 50 .375 gm In Dextrose/Water 1 50ml.bag @ 12.5 mls/hr IVPB Q12HR [facility] Rx#: [id number] Oral 380 180 Output: Urine 1450 1425 Other: Voiding Method Urinal Urinal # Voids 2 - Exam In general patient is alert and oriented 3 in no apparent distress HEENT head normocephalic and atraumatic scar for recent temporal artery biopsy is clear Neck is supple no JVD no goiter no lymphadenopathy no carotid bruit Chest exam reveals a crackles in both bases no wheezing Cardiac exam reveals regular heart sounds S1 and S2 no gallops no murmurs Abdomen is soft nontender no organomegaly was normal bowel sounds Extremity exam reveals 2+ edema there is below knee amputation on the left which is chronic - Labs CBC & Chem 7: 12/20/16 05:43 12/20/16 05:43 Labs: Abnormal Lab Results - Last 24 Hours (Table) 12/19/16 12/19/16 12/19/16 Range/Units 05:48 11:43 16:45 RBC (4.30-5.90) m/uL Hgb (13.0-17.5) gm/dL Hct (39.0-53.0) % MCV (80.0-100.0) fL MCHC (31.0-37.0) g/dL Lymphocytes # (1.0-4.8) k/uL PT (9.0-12.0) sec INR (<1.2) BUN (9-20) mg/dL Creatinine (0.66-1.25) mg/dL POC Glucose (mg/dL) 131 H 139 H (75-99) mg/dL Calcium (8.4-10.2) mg/dL Iron 15 L (49-181) ug/dL TIBC 141 L (261-462) ug/dL % Saturation 10.6 L (20-50) % Total Protein (6.3-8.2) g/dL Albumin (3.5-5.0) g/dL 12/19/16 12/20/16 12/20/16 Range/Units 21:17 05:43 05:43 RBC 2.90 L (4.30-5.90) m/uL Hgb 8.7 L (13.0-17.5) gm/dL Hct 29.4 L (39.0-53.0) % MCV 101.2 H (80.0-100.0) fL MCHC 29.5 L (31.0-37.0) g/dL Lymphocytes # 0.5 L (1.0-4.8) k/uL PT 26.3 H (9.0-12.0) sec INR 2.7 H (<1.2) BUN (9-20) mg/dL Creatinine (0.66-1.25) mg/dL POC Glucose (mg/dL) 148 H (75-99) mg/dL Calcium (8.4-10.2) mg/dL Iron (49-181) ug/dL TIBC (261-462) ug/dL % Saturation (20-50) % Total Protein (6.3-8.2) g/dL Albumin (3.5-5.0) g/dL 12/20/16 12/20/16 Range/Units 05:43 06:09 RBC (4.30-5.90) m/uL Hgb (13.0-17.5) gm/dL Hct (39.0-53.0) % MCV (80.0-100.0) fL MCHC (31.0-37.0) g/dL Lymphocytes # (1.0-4.8) k/uL PT (9.0-12.0) sec INR (<1.2) BUN 37 H (9-20) mg/dL Creatinine 2.97 H (0.66-1.25) mg/dL POC Glucose (mg/dL) 154 H (75-99) mg/dL Calcium 8.1 L (8.4-10.2) mg/dL Iron (49-181) ug/dL TIBC (261-462) ug/dL % Saturation (20-50) % Total Protein 3.7 L (6.3-8.2) g/dL Albumin 1.8 L (3.5-5.0) g/dL Microbiology - Last 24 Hours (Table) 12/18/16 12:53 Gram Stain - Preliminary Peritoneal Fluid Body Fluid Culture - Preliminary Assessment and Plan Plan: 1. Pneumonia with nonproductive cough. Chest x-ray showing bilateral infiltrate. Start Zosyn and consult Dr. Nino in pulmonary service 2. Acute systolic CHF exacerbation: Nephrology started patient on IV Lasix 60 mg every 12 hours. They've also adjusted his dialysis settings. Patient had Bilateral lower extremity edema with 40 pound weight gain. BNP level elevated. Last echo September 2016 with EF of 45-50%. Patient has low albumin level that could also be contributing to some of his edema 3. Chronic kidney disease stage IV with history of right kidney transplant secondary to renal failure from his diabetes mellitus. Patient recently started on urgent dialysis a week ago. Nephrology following. They've adjusted peritoneal Dialysis settings 4. Diabetes mellitus type 2: Episodes of hypoglycemia likely related to poor oral intake. Hypoglycemia resolved. Continue sliding scale coverage. Hemoglobin A1c 4.7 5. Chronic atrial fibrillation: Anticoagulated with Coumadin. INR 1.7. Give Coumadin 5 mg tonight. Check PT/INR in a.m. 6. History of morbid obesity status post gastric bypass in the 7. History of peripheral vascular disease secondary to his diabetes mellitus. Patient has required left below-knee amputation. 8. History of DVT with previous [place] filter placement 9. History of essential hypertension 10. History of coronary artery disease with previous coronary artery bypass grafting 2009 11. Anemia of chronic kidney disease. Hemoglobin dropped 8.3. Check iron studies 12. Severe protein calorie malnutrition . Patient refusing Glucerna shakes. Encouraged patient to increase protein intake
--- NOTE | 2016-12-20 10:27 | P.PN ---
Subjective Progress note dated 12/20/2016 61-year-old male who I saw yesterday in consultation. Heme into the hospital with complaints of fever chills cough and some minimal phlegm production. Chest x-ray was really not impressive. Possibly small infiltrate atelectasis or may be some fluid overload. Patient's feeling better today. The patient does have a history of end-stage renal disease. He status post kidney transplant. Currently on. He'll dialysis. The patient said previous episodes of pneumonia and he was concerned that that is what was going on again. From the pulmonary standpoint doing better today. The patient has a history of CHF diabetes CAD previous bypass grafting atrial fibrillation and peripheral vascular occlusive disease left [id number] amputation DVT and [place] filter placement. He also has a history of hypertension and hyperlipidemia. Again the patient is feeling a bit better. Another chest x-ray was ordered. Antibiotics are appropriate. We'll continue to follow. Objective - Vital Signs Vital signs: Vital Signs Temp 97.6 F 12/20/16 08:00 Pulse 88 12/20/16 08:00 Resp 16 12/20/16 08:00 BP 117/62 12/20/16 08:00 Pulse Ox 100 12/20/16 08:00 Intake & Output 12/19/16 12/20/16 12/20/16 18:59 06:59 18:59 Intake Total 430 50 180 Output Total 1450 1425 Balance -1020 -1375 180 Weight 91.9 kg 130.2 kg 91.3 kg Intake: IV 50 Piperacillin-Tazobactam 3 50 .375 gm In Dextrose/Water 1 50ml.bag @ 12.5 mls/hr IVPB Q12HR [facility] Rx#: [id number] Intake, IV Titration 50 Amount Piperacillin-Tazobactam 3 50 .375 gm In Dextrose/Water 1 50ml.bag @ 12.5 mls/hr IVPB Q12HR [facility] Rx#: [id number] Oral 380 180 Output: Urine 1450 1425 Other: Voiding Method Urinal Urinal # Voids 2 - Exam No acute distress, oriented 3 HEENT examination is grossly unremarkable. Mucous membranes are moist. Neck supple. Full range of motion. No adenopathy or thyromegaly. Neck veins are flat. Cardiovascular examination reveals regular rhythm rate. S1-S2 normal. No murmur. Lungs reveal few scattered mild rhonchi. No wheezes. No crackles. Breath sounds are equal. Abdomen soft bowel sounds are noted. Peritoneal catheter in place. Extremities are intact. Left below the knee amputation noted. Prosthesis in place. Skin without rash. - Labs CBC & Chem 7: 12/20/16 05:43 12/20/16 05:43 Labs: Abnormal Lab Results - Last 24 Hours (Table) 12/19/16 12/19/16 12/19/16 Range/Units 05:48 11:43 16:45 RBC (4.30-5.90) m/uL Hgb (13.0-17.5) gm/dL Hct (39.0-53.0) % MCV (80.0-100.0) fL MCHC (31.0-37.0) g/dL Lymphocytes # (1.0-4.8) k/uL PT (9.0-12.0) sec INR (<1.2) BUN (9-20) mg/dL Creatinine (0.66-1.25) mg/dL POC Glucose (mg/dL) 131 H 139 H (75-99) mg/dL Calcium (8.4-10.2) mg/dL Iron 15 L (49-181) ug/dL TIBC 141 L (261-462) ug/dL % Saturation 10.6 L (20-50) % Total Protein (6.3-8.2) g/dL Albumin (3.5-5.0) g/dL 12/19/16 12/20/16 12/20/16 Range/Units 21:17 05:43 05:43 RBC 2.90 L (4.30-5.90) m/uL Hgb 8.7 L (13.0-17.5) gm/dL Hct 29.4 L (39.0-53.0) % MCV 101.2 H (80.0-100.0) fL MCHC 29.5 L (31.0-37.0) g/dL Lymphocytes # 0.5 L (1.0-4.8) k/uL PT 26.3 H (9.0-12.0) sec INR 2.7 H (<1.2) BUN (9-20) mg/dL Creatinine (0.66-1.25) mg/dL POC Glucose (mg/dL) 148 H (75-99) mg/dL Calcium (8.4-10.2) mg/dL Iron (49-181) ug/dL TIBC (261-462) ug/dL % Saturation (20-50) % Total Protein (6.3-8.2) g/dL Albumin (3.5-5.0) g/dL 12/20/16 12/20/16 Range/Units 05:43 06:09 RBC (4.30-5.90) m/uL Hgb (13.0-17.5) gm/dL Hct (39.0-53.0) % MCV (80.0-100.0) fL MCHC (31.0-37.0) g/dL Lymphocytes # (1.0-4.8) k/uL PT (9.0-12.0) sec INR (<1.2) BUN 37 H (9-20) mg/dL Creatinine 2.97 H (0.66-1.25) mg/dL POC Glucose (mg/dL) 154 H (75-99) mg/dL Calcium 8.1 L (8.4-10.2) mg/dL Iron (49-181) ug/dL TIBC (261-462) ug/dL % Saturation (20-50) % Total Protein 3.7 L (6.3-8.2) g/dL Albumin 1.8 L (3.5-5.0) g/dL Microbiology - Last 24 Hours (Table) 12/18/16 12:53 Gram Stain - Preliminary Peritoneal Fluid Body Fluid Culture - Preliminary Assessment and Plan (1) Acute renal failure Status: Acute (2) Atrial fibrillation Status: Acute (3) CAD (coronary artery disease) Status: Acute (4) CKD (chronic kidney disease) Status: Acute (5) Cellulitis of left lower extremity Status: Acute (6) Diabetes mellitus Status: Acute (7) Fever Status: Acute (8) HTN (hypertension) Status: Acute (9) History of coronary artery bypass graft Status: Acute (10) History of kidney transplant Status: Acute (11) History of left below knee amputation Status: Acute (12) Hx of CABG Status: Acute (13) Peripheral vascular occlusive disease Status: Acute (14) Pneumonia Status: Acute Plan: Plan dated 12/19/2016 The patient actually looks very stable. The patient was started on antibiotics. We'll continue to follow. Prognosis is guarded. He is being treated for both possible pneumonia/bronchitis as well as cellulitis. Additional recommendations suggestions are forthcoming. Plan dated 12/20/2016 Patient looks relatively stable. We'll continue to follow. Medications are reviewed. Antibiotics are appropriate. Apparently a follow-up chest x-rays to be done today. From my perspective the patient could be discharged per the primary staff. Time with Patient: Less than 30
[2016-12-20] MEDS: SODIUM FERRIC GLUCONAT-SUCROSE 125 MG in SODIUM CHLORIDE 0.9% 100 ML IVPB SCH (10:38)
[2016-12-20 11:45] LABS: Glucose,Whole Blood 94 mg/dL (75-99)
[2016-12-20] MEDS: PIPERACILLIN-TAZOBACTAM 3.375 GM in DEXTROSE/WATER 1 50ML.BAG IVPB SCH (12:37)
--- NOTE | 2016-12-20 16:18 | XR ---
EXAMINATION TYPE: XR chest 2V DATE OF EXAM: 12/20/2016 COMPARISON: Chest x-ray from 2 days ago and older studies. HISTORY: Pneumonia progress study. TECHNIQUE: Frontal and lateral views of the chest are obtained. FINDINGS: There is persistent left basilar linear opacity. There is no new focal air space opacity, p leural effusion, or pneumothorax seen. The cardiac silhouette size is within normal limits. Sternal wires and mediastinal clips are redemonstrated. The osseous structures are demineralized. Multilevel spurring and spine is seen. IMPRESSION: Persistent left basilar linear atelectasis and/or infiltrate, no new infiltrate is seen. No significant change from most recent study.
[2016-12-20] MEDS: DIALYSIS (PERIT 4.25%) 2000 ML 85 G/2,000 ML BAG INTRAPERIT SCH ×2 (16:40→23:41)
[2016-12-20 17:22] LABS: Glucose,Whole Blood 207 mg/dL (75-99)
[2016-12-20 21:16] LABS: Glucose,Whole Blood 122 mg/dL (75-99)
[2016-12-20] MEDS: TEMAZEPAM 15 MG CAP PO SCH (21:34)
[2016-12-20] MEDS: ASPIRIN 81 MG CHEW PO SCH (21:35)
[2016-12-20] MEDS: ATORVASTATIN 80 MG TAB PO SCH (21:35)
[2016-12-21] MEDS: PIPERACILLIN-TAZOBACTAM 3.375 GM in DEXTROSE/WATER 1 50ML.BAG IVPB SCH ×2 (00:18→13:02)
[2016-12-21] MEDS: DIALYSIS (PERIT 2.5%) 2,000 ML 50 G/2,000 ML BAG INTRAPERIT SCH ×3 (04:12→23:57)
[2016-12-21 04:58] LABS: Glucose,Whole Blood 126 mg/dL (75-99)
--- NOTE | 2016-12-21 06:14 | XR ---
EXAM: 2 supine views of the abdomen. INDICATION: 61-year-old male with CAPD not filling. COMPARISON: 12/18/2016. FINDINGS: 2 supine AP views of the abdomen show bowel gas pattern is nonobstructive, nonspecific. No suspicious air-fluid levels or dilated loops of bowel. No pneumatosis or portal venous gas identified. Peritoneal dialysis catheter is present in the right lower quadrant, as before. Basilar calcifications are noted. Degenerative changes of the spine. IVC filter is redemonstrated. IMPRESSION: 1. Nonspecific, nonobstructive appearance of the abdomen. 2. Similar appearance of the peritoneal dialysis catheter located in the right abdomen.
[2016-12-21 07:29] LABS: Glucose,Whole Blood 128 mg/dL (75-99)
[2016-12-21] MEDS: INSULIN LISPRO (humaLOG) 300 UNIT/3 ML VIAL SQ SCH ×4 (08:42→21:08)
[2016-12-21] MEDS: TACROLIMUS 1 MG CAP PO SCH ×2 (08:44→21:08)
[2016-12-21] MEDS: MYCOPHENOLATE SODIUM DR 180 MG TABLET.DR PO SCH (08:44)
[2016-12-21] MEDS: FUROSEMIDE 10 MG/ML 10 ML VIAL IV SCH ×2 (08:44→21:08)
[2016-12-21] MEDS: CALCITRIOL 0.25 MCG CAP PO SCH ×2 (08:45→21:07)
[2016-12-21] MEDS: CHOLECALCIFEROL 1,000 UNIT TAB PO SCH ×2 (08:45→21:07)
[2016-12-21] MEDS: MAGNESIUM OXIDE 400 MG TAB PO SCH (08:45)
[2016-12-21] MEDS: DIALYSIS (PERIT 4.25%) 2000 ML 85 G/2,000 ML BAG INTRAPERIT SCH ×2 (08:45→19:38)
[2016-12-21] MEDS: predniSONE 5 MG TAB PO SCH (08:45)
[2016-12-21] MEDS: SODIUM BICARBONATE TAB 650 MG TAB PO SCH ×2 (08:45→21:07)
[2016-12-21] MEDS: DOCUSATE 100 MG CAP PO SCH ×2 (09:04→21:31)
[2016-12-21 09:26] LABS: Basophils # (A) 0.1 k/uL (0-0.2); Basophils % (A) 2 %; CH 29.9; CHCM 28.9; Eosinophils % (A) 0 %; HCT 32.8 % (39.0-53.0); HDW 2.85; HGB 9.5 gm/dL (13.0-17.5); Hypochromasia Marked; INR 3.8 (<1.2); Luc % (Auto) 2; Lymphocytes # (A) 0.5 k/uL (1.0-4.8); Lymphocytes % (A) 10 %; MCH 30.1 pg (25.0-35.0); Macrocytosis Moderate; Mean Platelet Volume 9.2; Monocytes # (A) 0.4 k/uL (0-1.0); Monocytes % (A) 9 %; Neutrophils # (A) 3.8 k/uL (1.3-7.7); Neutrophils % (A) 77 %; Prothrombin Time 37.5 sec (9.0-12.0); RBC 3.16 m/uL (4.30-5.90); RDW 15.5 % (11.5-15.5)
--- NOTE | 2016-12-21 09:30 | P.PN ---
Subjective Patient is seen in follow-up for end-stage renal disease. He is maintained on peritoneal dialysis. 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 Patient presented with weight gain. He was also somewhat dyspneic with a productive cough. He states coughing is improved. Dyspnea is mostly resolved. His weight is also trending down. There is no evidence of peritonitis. There was some difficulty with filling this morning. An extra 500 mL was drained. He is currently being filled again and seems to be tolerating it well. Denies abdominal pain. Vital signs are stable. General: The patient appeared well nourished and normally developed. HEENT: Head exam is unremarkable. Neck is without jugular venous distension. LUNGS: Lungs are clear to auscultation and percussion. Breath sounds decreased. HEART: Rate and Rhythm are regular. First and second heart sounds normal. No murmurs, rubs or gallops. ABDOMEN: Abdominal exam reveals normal bowel sounds. Non-tender and non- distended. No evidence of peritonitis. EXTREMITITES: Trace edema. Left below the knee amputation noted. Objective - Vital Signs Vital signs: Vital Signs Temp 99.0 F 12/21/16 07:00 Pulse 68 12/21/16 07:00 Resp 16 12/21/16 07:00 BP 141/46 12/21/16 07:00 Pulse Ox 94 L 12/21/16 07:00 Intake & Output 12/20/16 12/21/16 12/21/16 18:59 06:59 18:59 Intake Total 380 450 Output Total 300 850 Balance 80 -400 Weight 91.3 kg 91 kg Intake: Oral 380 450 Output: Urine 300 850 Other: Voiding Method Urinal Toilet Urinal - Labs CBC & Chem 7: 12/20/16 05:43 12/20/16 05:43 Labs: Abnormal Lab Results - Last 24 Hours (Table) 12/20/16 12/20/16 12/21/16 Range/Units 17:18 21:13 04:54 PT (9.0-12.0) sec INR (<1.2) POC Glucose (mg/dL) 207 H 122 H 126 H (75-99) mg/dL 12/21/16 12/21/16 Range/Units 07:25 08:49 PT 37.5 H (9.0-12.0) sec INR 3.8 H (<1.2) POC Glucose (mg/dL) 128 H (75-99) mg/dL Microbiology - Last 24 Hours (Table) 12/18/16 12:53 Gram Stain - Preliminary Peritoneal Fluid Body Fluid Culture - Preliminary Assessment and Plan Plan: Assessment: #1. End-stage renal disease maintained on peritoneal dialysis. #2. Volume overload. Improving. #3. Dyspnea related to fluid overload as well as possible underlying pneumonia. #4. Anemia of chronic kidney disease. Iron deficiency noted. #5. 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 Plan: Continue with 2 L exchanges alternating with 2.5 and 4.25% dextrose solutions. Antibiotics per infectious disease recommendations. Maintain IV Lasix while in the hospital. Can be transitioned oral upon discharge. Ferrlicit 125 mg IV daily for 3 days. Second dose today. Maintain Aranesp. Maintain immunosuppression for now. Will be tapered as an outpatient. Abdominal x-ray didn't reveal any significant abnormalities. Patient denies any constipation. Hopefully he will tolerate the current fill.
[2016-12-21 09:34] LABS: Calcium 8.4 mg/dL (8.4-10.2); Potassium 3.9 mmol/L (3.5-5.1); Total Bilirubin 0.3 mg/dL (0.2-1.3); Total Protein 4.2 g/dL (6.3-8.2)
[2016-12-21] MEDS: SODIUM FERRIC GLUCONAT-SUCROSE 125 MG in SODIUM CHLORIDE 0.9% 100 ML IVPB SCH (10:07)
[2016-12-21] MEDS: BACITRACIN 500 UNIT/GM OINT 28.4 GM TUBE TOPICAL SCH (10:07)
[2016-12-21 11:57] LABS: Glucose,Whole Blood 134 mg/dL (75-99)
[2016-12-21] MEDS: VIT A,C & E-LUTEIN-MINERALS 1 EACH TAB PO SCH ×2 (13:02→21:07)
--- NOTE | 2016-12-21 13:45 | P.PN ---
Subjective This is a 61-year-old male with a known past medical history of chronic renal failure with right kidney transplant. He was started on peritoneal dialysis about a week ago. He also has a known history of congestive heart failure, diabetes mellitus type 2, coronary artery disease and previous coronary artery bypass grafting, atrial fibrillation in which she is on Coumadin, peripheral vascular disease, DVT of the lower extremity and has Bowdle filter placed, hypertension and hyperlipidemia. Patient presented to Dr. Mosquera's office with not feeling well and having cough and lower extremity swelling. He was a direct admit to the hospital for possible pneumonia. Chest x-ray is showing a bilateral infiltrate with tiny effusion. Patient reports the cough is nonproductive. He denies any chest pain or shortness of breath. However he has noted about a 40 pound weight gain over the last week. He reports significant swelling in both his legs. He has a left below the knee amputation that has also had some swelling. He denies any chest pain. Denies any fever or sweats. Denies any nausea or vomiting. Denies any bowel movement changes or urinary symptoms. Patient does report being cold with chills. Patient was also hypoglycemic with a blood sugar of 68 on admission. He was given food and orange juice. Blood sugars slowly coming up. Patient reports that his blood sugar was low this morning. He ate a few candies and then his blood sugar was in the 300s. He took about 12 units of Humalog before coming to the hospital. He also reports that he's been doing the peritoneal dialysis at home and the amount of fluid that he is putting and with dialysis is more than what he is getting out. Nephrology has been consulted. Patient will be placed on IV antibiotics for possible pneumonia. 12/19/2016 patient reports some improvement in his cough. He is currently on IV Zosyn for his pneumonia. He was seen by nephrology they have adjusted the dialysis settings. Still has swelling in his lower extremities. Patient refuses to drink the Glucerna. He states that he will eat eggs for his protein source. Patient denies any chest pain or shortness of breath. Denies any nausea or vomiting. Reports regular bowel movements. Denies any difficulty urinating. On 12/20/2016 patient reports improvement in shortness of breath and cough he reports improvement in his lower extremity swelling. He is maintained on IV Zosyn for pneumonia, he is also receiving IV Lasix and receiving peritoneal dialysis. He is complaining of burn after he spilled coffee on his genital area 2 weeks ago otherwise no complaints at this time On 12/21/2016 patient still complaining of painin the lower right ribs area in the back especially when taking deep breath, he is complaining of lower extremities swelling however it has improved since yesterday. Objective - Vital Signs Vital signs: Vital Signs Temp 99 F 12/21/16 09:00 Pulse 68 12/21/16 09:00 Resp 16 12/21/16 09:00 BP 141/46 12/21/16 09:00 Pulse Ox 94 L 12/21/16 09:00 Intake & Output 12/20/16 12/21/16 12/21/16 18:59 06:59 18:59 Intake Total 380 450 Output Total 300 850 Balance 80 -400 Weight 91.3 kg 91 kg Intake: Oral 380 450 Output: Urine 300 850 Other: Voiding Method Urinal Toilet Urinal - Exam In general patient is alert and oriented 3 in no apparent distress HEENT head normocephalic and atraumatic scar for recent temporal artery biopsy is clear Neck is supple no JVD no goiter no lymphadenopathy no carotid bruit Chest exam reveals a crackles in both bases no wheezing Cardiac exam reveals regular heart sounds S1 and S2 no gallops no murmurs Abdomen is soft nontender no organomegaly was normal bowel sounds Extremity exam reveals 2+ edema there is below knee amputation on the left which is chronic - Labs CBC & Chem 7: 12/21/16 08:49 12/21/16 08:49 Labs: Abnormal Lab Results - Last 24 Hours (Table) 12/20/16 12/20/16 12/21/16 Range/Units 17:18 21:13 04:54 RBC (4.30-5.90) m/uL Hgb (13.0-17.5) gm/dL Hct (39.0-53.0) % MCV (80.0-100.0) fL MCHC (31.0-37.0) g/dL Lymphocytes # (1.0-4.8) k/uL PT (9.0-12.0) sec INR (<1.2) BUN (9-20) mg/dL Creatinine (0.66-1.25) mg/dL Glucose (74-99) mg/dL POC Glucose (mg/dL) 207 H 122 H 126 H (75-99) mg/dL Total Protein (6.3-8.2) g/dL Albumin (3.5-5.0) g/dL 12/21/16 12/21/16 12/21/16 Range/Units 07:25 08:49 08:49 RBC 3.16 L (4.30-5.90) m/uL Hgb 9.5 L (13.0-17.5) gm/dL Hct 32.8 L (39.0-53.0) % MCV 104.0 H (80.0-100.0) fL MCHC 29.0 L (31.0-37.0) g/dL Lymphocytes # 0.5 L (1.0-4.8) k/uL PT 37.5 H (9.0-12.0) sec INR 3.8 H (<1.2) BUN (9-20) mg/dL Creatinine (0.66-1.25) mg/dL Glucose (74-99) mg/dL POC Glucose (mg/dL) 128 H (75-99) mg/dL Total Protein (6.3-8.2) g/dL Albumin (3.5-5.0) g/dL 12/21/16 12/21/16 Range/Units 08:49 11:52 RBC (4.30-5.90) m/uL Hgb (13.0-17.5) gm/dL Hct (39.0-53.0) % MCV (80.0-100.0) fL MCHC (31.0-37.0) g/dL Lymphocytes # (1.0-4.8) k/uL PT (9.0-12.0) sec INR (<1.2) BUN 37 H (9-20) mg/dL Creatinine 3.20 H (0.66-1.25) mg/dL Glucose 149 H (74-99) mg/dL POC Glucose (mg/dL) 134 H (75-99) mg/dL Total Protein 4.2 L (6.3-8.2) g/dL Albumin 2.1 L (3.5-5.0) g/dL Microbiology - Last 24 Hours (Table) 12/18/16 12:53 Gram Stain - Preliminary Peritoneal Fluid Body Fluid Culture - Preliminary Assessment and Plan Plan: 1. Pneumonia with nonproductive cough. Chest x-ray showing bilateral infiltrate. Start Zosyn and consult Dr. Nino in pulmonary service 2. Acute systolic CHF exacerbation: Nephrology started patient on IV Lasix 60 mg every 12 hours. They've also adjusted his dialysis settings. Patient had Bilateral lower extremity edema with 40 pound weight gain. BNP level elevated. Last echo September 2016 with EF of 45-50%. Patient has low albumin level that could also be contributing to some of his edema 3. Chronic kidney disease stage IV with history of right kidney transplant secondary to renal failure from his diabetes mellitus. Patient recently started on urgent dialysis a week ago. Nephrology following. They've adjusted peritoneal Dialysis settings 4. Diabetes mellitus type 2: Episodes of hypoglycemia likely related to poor oral intake. Hypoglycemia resolved. Continue sliding scale coverage. Hemoglobin A1c 4.7 5. Chronic atrial fibrillation: Anticoagulated with Coumadin. INR 1.7. Give Coumadin 5 mg tonight. Check PT/INR in a.m. 6. History of morbid obesity status post gastric bypass in the 7. History of peripheral vascular disease secondary to his diabetes mellitus. Patient has required left below-knee amputation. 8. History of DVT with previous Bowdle filter placement 9. History of essential hypertension 10. History of coronary artery disease with previous coronary artery bypass grafting 2009 11. Anemia of chronic kidney disease. Hemoglobin dropped 8.3. Check iron studies 12. Severe protein calorie malnutrition . Patient refusing Glucerna shakes. Encouraged patient to increase protein intake
--- NOTE | 2016-12-21 13:49 | PN ---
This is a patient of Dr. Stanton. He was admitted with diagnosis of possible pneumonia. The patient is status post kidney transplant and currently on peritoneal dialysis. He came in with complaints of chest congestion, cough, mild temperature elevation, phlegm production. Thought he might have pneumonia. Chest x-ray in my opinion was not very impressive. If he had an upper respiratory infection it was more like a bronchitis. The patient was up on the 6th Floor, now down ont he 4th Floor. Doing much better. Feeling much better. He has a history of multiple medical problems including heart failure, diabetes, CAD, previous bypass grafting, atrial fibrillation, PVOD, left BKA, DVT and [place] filter placement. He also suffers from hypertension and hyperlipidemia. Overall, doing relatively well. Vital signs are currently stable. His temperature is 98.2, heart rate 68, respiratory rate 16, blood pressure 141/46, mean 77 and room air saturation somewhere between 94-99%. Appears in no acute distress. HEENT: Grossly unremarkable. NECK: Supple. Full range of motion. No adenopathy. CARDIOVASCULAR: Reveals regular rhythm and rate. S1/S2 normal. LUNGS: Reveal mostly clear breath sounds. A few scattered mild rhonchi. No wheezes. No crackles. ABDOMEN: Soft. Bowel sounds are heard. Peritoneal dialysis catheter in place. EXTREMITIES: Intact. He has a left BKA. Right lower extremity is edematous. SKIN: Without rash. A few areas of ecchymosis. There is some distal erythema and hyperemia of the right lower extremity. NEUROLOGIC: Brief but nonfocal. Labs are reviewed. White count 5, hemoglobin 9.5, hematocrit 32.8, platelet count 178,000. PT and INR were 37.5 and 3.8. Sodium, potassium, chloride and CO2 all normal. BUN and creatinine were 37 and 3.20. Microbiology is all negative. Repeat chest x-ray from yesterday shows some left basilar atelectasis as opposed to infiltrate in my opinion. ASSESSMENT: 1. Upper respiratory infection/bronchitis, doubt pneumonia. 2. Renal failure, currently on peritoneal dialysis. 3. Atrial fibrillation. 4. Coronary artery disease. 5. Chronic kidney disease. 6. Cellulitis of the lower extremities. 7. Left below knee amputation. 8. Diabetes mellitus. 9. Fever. 10. Hypertension. 11. Previous bypass grafting. 12. History of kidney transplant. 13. Peripheral vascular occlusive disease. 14. History of previous episodes of pneumonia. PLAN: The patient's medications were reviewed. He is very stable. Was moved down from the 6th Floor to the 4th Floor. No additional recommendations are made. Doubt significant pneumonia. I believe what is going on in the left base is mostly atelectasis. MTDD
[2016-12-21 17:26] LABS: Glucose,Whole Blood 143 mg/dL (75-99)
[2016-12-21 20:54] LABS: Glucose,Whole Blood 185 mg/dL (75-99)
[2016-12-21] MEDS: ATORVASTATIN 80 MG TAB PO SCH (21:07)
[2016-12-21] MEDS: ASPIRIN 81 MG CHEW PO SCH (21:07)
[2016-12-21] MEDS: TEMAZEPAM 15 MG CAP PO SCH (21:08)
[2016-12-22] MEDS: PIPERACILLIN-TAZOBACTAM 3.375 GM in DEXTROSE/WATER 1 50ML.BAG IVPB SCH ×2 (00:49→12:05)
[2016-12-22] MEDS: DIALYSIS (PERIT 2.5%) 2,000 ML 50 G/2,000 ML BAG INTRAPERIT SCH ×2 (05:47→11:44)
[2016-12-22 05:50] VITALS: RESP 16
[2016-12-22 07:19] LABS: Glucose,Whole Blood 144 mg/dL (75-99)
[2016-12-22 07:34] VITALS: BP 116/44; PULSE 72; TEMP 97.5
[2016-12-22] MEDS: INSULIN LISPRO (humaLOG) 300 UNIT/3 ML VIAL SQ SCH (07:44)
[2016-12-22] MEDS: predniSONE 5 MG TAB PO SCH (07:48)
[2016-12-22] MEDS: FUROSEMIDE 10 MG/ML 10 ML VIAL IV SCH (07:48)
[2016-12-22] MEDS: CHOLECALCIFEROL 1,000 UNIT TAB PO SCH (07:49)
[2016-12-22] MEDS: CALCITRIOL 0.25 MCG CAP PO SCH (07:49)
[2016-12-22] MEDS: DOCUSATE 100 MG CAP PO SCH (07:49)
[2016-12-22] MEDS: TACROLIMUS 1 MG CAP PO SCH (07:49)
[2016-12-22] MEDS: MYCOPHENOLATE SODIUM DR 180 MG TABLET.DR PO SCH (07:49)
[2016-12-22] MEDS: MAGNESIUM OXIDE 400 MG TAB PO SCH (07:49)
[2016-12-22] MEDS: SODIUM BICARBONATE TAB 650 MG TAB PO SCH (07:49)
[2016-12-22] MEDS: VIT A,C & E-LUTEIN-MINERALS 1 EACH TAB PO SCH (07:49)
[2016-12-22 08:08] LABS: Basophils % (A) 0 %; CH 29.7; CHCM 29.3; Eosinophils % (A) 0 %; HCT 34.1 % (39.0-53.0); HDW 2.85; HGB 10.1 gm/dL (13.0-17.5); Hypochromasia Marked; INR 2.7 (<1.2); Luc # (Auto) 0.12; Luc % (Auto) 3; Lymphocytes # (A) 0.6 k/uL (1.0-4.8); Lymphocytes % (A) 14 %; MCH 30.2 pg (25.0-35.0); MCHC 29.5 g/dL (31.0-37.0); Macrocytosis Slight; Mean Platelet Volume 8.9; Monocytes # (A) 0.4 k/uL (0-1.0); Monocytes % (A) 9 %; Neutrophils # (A) 2.9 k/uL (1.3-7.7); Neutrophils % (A) 73 %; Prothrombin Time 25.7 sec (9.0-12.0); RBC 3.34 m/uL (4.30-5.90); RDW 15.6 % (11.5-15.5); WBC (Perox) 4.07
[2016-12-22 08:17] LABS: Calcium 8.4 mg/dL (8.4-10.2); Total Bilirubin 0.3 mg/dL (0.2-1.3)
[2016-12-22] MEDS: SODIUM FERRIC GLUCONAT-SUCROSE 125 MG in SODIUM CHLORIDE 0.9% 100 ML IVPB SCH (09:21)
[2016-12-22] MEDS: BACITRACIN 500 UNIT/GM OINT 28.4 GM TUBE TOPICAL SCH (09:21)
[2016-12-22 09:25] LABS: Total Protein 4.2 g/dL (6.3-8.2)
--- NOTE | 2016-12-22 09:28 | PN ---
DATE OF SERVICE: 12/21/2016 REASON FOR FOLLOW UP: Pneumonia and right leg cellulitis. INTERVAL HISTORY: The patient is afebrile and has been breathing comfortably. Pain to the right lower ribcage area has slightly improved. He did have some cough, but not brining up any sputum. No abdominal pain. The leg swelling and redness remains to be improving. On examination, blood pressure 105/74, pulse of 75, temperature 98.4. He is 98% on room air. General description is a middle aged female lying in bed in no distress. RESPIRATORY: Unlabored breathing, decreased breath sounds in the bases. HEART: S1, S2, regular. ABDOMEN: Soft, no tenderness. The right leg swelling and redness have improved. LABS: Hemoglobin 9.5, white count of 5.0 with BUN of 37 and creatinine of 3.20. DIAGNOSTIC IMPRESSION AND PLAN: Patient with right lower lobe pneumonia with symptoms mostly in the right lower lung with also a component of right lower extremity cellulitis. currently on Zosyn which will be continued with plan to finish therapy with oral antibiotics. Continue supportive care. MTDQi
--- NOTE | 2016-12-22 10:31 | P.DS ---
Providers Date of admission: 12/18/16 11:16 Expected date of discharge: 12/22/16 Attending physician: Kyrie Mosquera Consults: 12/18/16 12:34 Consult Physician Routine Consulting Provider: Crissy Saini Consult Reason/Comments: dialysis Do you want consulting provider notified?: Yes 12/18/16 14:02 Consult Physician Routine Consulting Provider: Maycol Nino Consult Reason/Comments: pneumonia Do you want consulting provider notified?: Yes 12/18/16 14:36 Consult Physician Routine Consulting Provider: Nick Galaviz Consult Reason/Comments: pneumonia Do you want consulting provider notified?: Yes Primary care physician: [facility] Course: Discharge diagnosis 1. Pneumonia with nonproductive cough. Chest x-ray showing bilateral infiltrate. Start Zosyn and consult Dr. Nino in pulmonary service. Patient evaluated by both infectious disease and pulmonary service. We'll continue Augmentin for 10 more days. 2. Acute systolic CHF exacerbation: Nephrology started patient on IV Lasix 60 mg every 12 hours. They've also adjusted his dialysis settings. Patient had Bilateral lower extremity edema with 40 pound weight gain. BNP level elevated. Last echo September 2016 with EF of 45-50%. Patient has low albumin level that could also be contributing to some of his edema. Symptoms have shown improvement. We'll switch him back to his Lasix 40 mg daily by mouth 3. Chronic kidney disease stage IV with history of right kidney transplant secondary to renal failure from his diabetes mellitus. Patient recently started on urgent dialysis a week ago. Nephrology following. They've adjusted peritoneal Dialysis settings 4. Diabetes mellitus type 2: Episodes of hypoglycemia likely related to poor oral intake. Hypoglycemia resolved. Continue sliding scale coverage. Hemoglobin A1c 4.7 5. Chronic atrial fibrillation: Anticoagulated with Coumadin. INR therapeutic at 2.7 6. History of morbid obesity status post gastric bypass in the 7. History of peripheral vascular disease secondary to his diabetes mellitus. Patient has required left below-knee amputation. 8. History of DVT with previous [place] filter placement 9. History of essential hypertension 10. History of coronary artery disease with previous coronary artery bypass grafting 2009 11. Anemia of chronic kidney disease. Hemoglobin dropped 8.3. With known iron deficiency anemia. Patient has been receiving IV iron. Hemoglobin is up to 10.1. He'll go home with ferrous sulfate 325 mg twice a day 12. Severe protein calorie malnutrition . Patient refusing Glucerna shakes. Encouraged patient to increase protein intake Hospital course This is a 61-year-old male with a known past medical history of chronic renal failure with right kidney transplant. He was started on peritoneal dialysis about a week ago. He also has a known history of congestive heart failure, diabetes mellitus type 2, coronary artery disease and previous coronary artery bypass grafting, atrial fibrillation in which she is on Coumadin, peripheral vascular disease, DVT of the lower extremity and has [place] filter placed, hypertension and hyperlipidemia. Patient presented to Dr. Mosquera's office with not feeling well and having cough and lower extremity swelling. He was a direct admit to the hospital for possible pneumonia. Chest x-ray is showing a bilateral infiltrate with tiny effusion. Patient reports the cough is nonproductive. He denies any chest pain or shortness of breath. However he has noted about a 40 pound weight gain over the last week. He reports significant swelling in both his legs. He has a left below the knee amputation that has also had some swelling. He denies any chest pain. Denies any fever or sweats. Denies any nausea or vomiting. Denies any bowel movement changes or urinary symptoms. Patient does report being cold with chills. Patient was also hypoglycemic with a blood sugar of 68 on admission. He was given food and orange juice. Blood sugars slowly coming up. Patient reports that his blood sugar was low this morning. He ate a few candies and then his blood sugar was in the 300s. He took about 12 units of Humalog before coming to the hospital. He also reports that he's been doing the peritoneal dialysis at home and the amount of fluid that he is putting and with dialysis is more than what he is getting out. Nephrology has been consulted. Patient will be placed on IV antibiotics for possible pneumonia. Patient was treated for pneumonia and fluid overload with CHF exacerbation. He is placed on antibiotics in the form of IV Zosyn and also IV Lasix. Patient was seen by both pulmonary service and infectious disease. Infectious diseases recommending Augmentin for 10 more days. Patient's symptoms have shown improvement. The fluid from the peritoneal dialysis was negative. Nephrology has adjusted the fluid exchange settings. And he'll continue the peritoneal dialysis per their recommendations. He had evidence of anemia due to his chronic kidney disease and iron deficiency anemia. Received 3 doses of IV iron. And he'll be going home with ferrous sulfate 3 and 25 mg twice a day. Hemoglobin at discharge 10.1. Patient's symptoms have improved he'll continue with Augmentin for 10 days to complete a treatment for pneumonia. Patient restarted on his home Lasix. Patient complaining of some right-sided pain. Abdominal x-ray completed showing no acute changes. And again fluid culture was negative. Pain could be muscle skeletal from his cough from the pneumonia as well as the peritoneal dialysis. Nephrology is aware. Patient's symptoms are stable and he is medically stable for discharge. Please refer to chart for any further details Patient Condition at Discharge: Stable Plan - Discharge Summary New Discharge Prescriptions: New Amoxic-Pot Clav 875-125Mg [Augmentin 875-125] 1 tab PO Q12HR #20 tablet Ferrous Sulfate [Feosol] 325 mg PO BID #60 tab Continue Cholecalciferol [Vitamin D3] 2,000 mg PO BID Sodium Bicarbonate Tab 650 mg PO BID Tacrolimus [Prograf] 2 mg PO BID Magnesium Gluconate [Magonate] 500 mg PO DAILY Aspirin EC [Ecotrin Low Dose] 81 mg PO HS Atorvastatin [Lipitor] 80 mg PO HS Calcitriol 1 mcg PO BID Vit C/E/Zn/Coppr/Lutein/Zeaxan [Preservision Areds 2 Softgel] 1 cap PO BID Temazepam [Restoril] 15 mg PO HS INSULIN LISPRO (HumaLOG) [humaLOG] See Protocol SQ ACHS predniSONE 5 mg PO DAILY tab Furosemide [Lasix] 40 mg PO DAILY Mycophenolate Sodium Dr [Myfortic] 360 mg PO DAILY Warfarin [Coumadin] 1 mg PO DAILY Docusate [Colace] 100 mg PO BID #60 capsule Discharge Medication List Cholecalciferol [Vitamin D3] 2,000 mg PO BID 05/17/14 [History] Sodium Bicarbonate Tab 650 mg PO BID 05/17/14 [History] Tacrolimus [Prograf] 2 mg PO BID 12/06/14 [History] Magnesium Gluconate [Magonate] 500 mg PO DAILY 02/01/15 [History] Aspirin EC [Ecotrin Low Dose] 81 mg PO HS 02/12/16 [History] Atorvastatin [Lipitor] 80 mg PO HS 02/12/16 [History] Calcitriol 1 mcg PO BID 02/12/16 [History] Vit C/E/Zn/Coppr/Lutein/Zeaxan [Preservision Areds 2 Softgel] 1 cap PO BID 02/11 [History] Temazepam [Restoril] 15 mg PO HS 07/18/16 [History] INSULIN LISPRO (HumaLOG) [humaLOG] See Protocol SQ ACHS 07/19/16 [History] predniSONE 5 mg PO DAILY tab 07/21/16 [Rx] Furosemide [Lasix] 40 mg PO DAILY 08/19/16 [History] Mycophenolate Sodium Dr [Myfortic] 360 mg PO DAILY 09/15/16 [History] Warfarin [Coumadin] 1 mg PO DAILY 11/12/16 [History] Docusate [Colace] 100 mg PO BID #60 capsule 11/14/16 [Rx] Amoxic-Pot Clav 875-125Mg [Augmentin 875-125] 1 tab PO Q12HR #20 tablet [Rx] Ferrous Sulfate [Feosol] 325 mg PO BID #60 tab 12/22/16 [Rx] Follow up Appointment(s)/Referral(s): Kyrie Mosquera MD [Primary Care Provider] - 1 Week Patient Instructions/Handouts: Heart Failure (DC), Type 2 Diabetes in Adults ( DC) Activity/Diet/Wound Care/Special Instructions: Diet: renal, diabetic, cardiac Activity: as tolerated Discharge Disposition: HOME SELF-CARE
--- NOTE | 2016-12-22 12:23 | PN ---
DATE OF SERVICE: 12/22/2016 Reason for followup is pneumonia and right leg cellulitis. INTERVAL HISTORY: The patient is afebrile. He is breathing comfortably. Cough is increased in intensity. Still has some right lower pleuritic chest pain. No worsening. No abdominal pain or any diarrhea. On examination, blood pressure is 116/44 with a pulse of 72, temperature 97.5. He is 98% on room air. General description is a middle aged male up in the bed in no distress. RESPIRATORY SYSTEM: Unlabored breathing with decreased breath sounds at the bases. No wheeze. HEART: S1 and S2. Regular rate and rhythm. ABDOMEN: Soft, no tenderness. LABS: Hemoglobin is 10.1, white count 4.0 with a BUN 34, creatinine is 3.17. DIAGNOSTIC IMPRESSION AND PLAN: Patient admitted to the hospital with no feeling well and a question of possible pneumonia and right leg cellulitis. Overall improvement with Zosyn. Plan to finish therapy with p.o. Augmentin with close outpatient followup. Continue supportive care. MTDD
== END 2016-12-22 12:06 | disposition home or self-care (01) | DRG 193 ==
LOC: 6SEL 11:16 → 4MS4W 12-20 15:09
PROVIDERS: ADMIT Internal Medicine; ATTEND Internal Medicine
PROC: 3E1M39Z Irrigation of Peritoneal Cavity using Dialysate, Percutaneous Approach (ICD-10-PCS; principal; 2016-12-18)
DX: J18.9 Pneumonia, unspecified organism (principal); N18.6 End stage renal disease; E43 Unspecified severe protein-calorie malnutrition; I50.23 Acute on chronic systolic (congestive) heart failure; T86.19 Other complication of kidney transplant; N17.9 Acute kidney failure, unspecified; E11.22 Type 2 diabetes mellitus with diabetic chronic kidney disease; L03.115 Cellulitis of right lower limb; I48.2 Chronic atrial fibrillation; I13.2 Hypertensive heart and chronic kidney disease with heart failure and with stage 5 chronic kidney disease, or end stage renal disease; L03.116 Cellulitis of left lower limb; E11.51 Type 2 diabetes mellitus with diabetic peripheral angiopathy without gangrene; E11.649 Type 2 diabetes mellitus with hypoglycemia without coma; D63.1 Anemia in chronic kidney disease; E78.5 Hyperlipidemia, unspecified; H40.9 Unspecified glaucoma; E03.9 Hypothyroidism, unspecified; M19.91 Primary osteoarthritis, unspecified site; I25.10 Atherosclerotic heart disease of native coronary artery without angina pectoris; I25.2 Old myocardial infarction; K21.9 Gastro-esophageal reflux disease without esophagitis; D50.9 Iron deficiency anemia, unspecified; Z99.2 Dependence on renal dialysis; Z98.84 Bariatric surgery status; Z95.828 Presence of other vascular implants and grafts; Z89.512 Acquired absence of left leg below knee; Z86.718 Personal history of other venous thrombosis and embolism; Z95.1 Presence of aortocoronary bypass graft; Z87.01 Personal history of pneumonia (recurrent); Z89.411 Acquired absence of right great toe; Z98.42 Cataract extraction status, left eye; Z98.41 Cataract extraction status, right eye; Z79.01 Long term (current) use of anticoagulants; Z79.82 Long term (current) use of aspirin; Z79.4 Long term (current) use of insulin; Z79.52 Long term (current) use of systemic steroids; Z79.899 Other long term (current) drug therapy; Z88.5 Allergy status to narcotic agent; Y83.0 Surgical operation with transplant of whole organ as the cause of abnormal reaction of the patient, or of later complication, without mention of misadventure at the time of the procedure
CPT/HCPCS: 71020; 74000; 74020; 80053; 82728; 83036; 83540; 83550; 83880; 84100; 85025; 85610; 87070; 87205; 89050

== ENCOUNTER → 2016-12-29 | Outpatient (CLI) | payer MEDICARE, BC ==
--- NOTE | 2016-12-29 13:21 | CT ---
EXAMINATION TYPE: CT chest abdomen wo con DATE OF EXAM: 12/29/2016 COMPARISON: CT abdomen and pelvis July 31, 2016. CT chest March 02, 2012 HISTORY: Right upper abdominal pain CT DLP: 1016 mGycm. Automated Exposure Control for Dose Reduction was Utilized. TECHNIQUE: CT scan of the thorax abdomen are performed with oral but without IV contrast. FINDINGS: LUNGS: There is some residual linear scarring and/or atelectasis in the lingula and left lower lobe. There is slightly elevated left hemidiaphragm redemonstrated. Right lung is clear. No suspicious nodu le or mass is present bilaterally. MEDIASTINUM: There are no greater than 1 cm hilar or mediastinal lymph nodes. No pericardial effusi on is seen. Post CABG changes with mediastinal clips and sternal wires is noted. OTHER: No additional significant abnormality is seen. LIVER/GB: A few dependent small gallstones are seen in gallbladder PANCREAS: No significant abnormality is seen. SPLEEN: Spleen size is upper limits of normal on axial image 44 measuring 13.4 cm on long axis, not s ignificant change from prior. ADRENALS: No significant abnormality is seen. KIDNEYS: Bilateral small atrophic [place] kidneys are redemonstrated. There is stable 6 mm calculus mid pole level of right renal pelvic transplant on coronal image 50. Th ere is right lower quadrant peritoneal dialysis catheter, tip not included in [id number]. BOWEL: Oral contrast is seen in nondistended left-sided and pelvic small bowel loops. Evaluation of s tomach is suboptimal due to lack of enteric contrast at this level and poor distention. Contrast is s een in nondistended duodenal sweep. Fecal material is seen in nondistended colon along the periphery. Cecum is slightly wandering into the anterior right mid abdomen. LYMPH NODES: No greater than 1cm abdominal or pelvic lymph nodes are appreciated. OSSEOUS STRUCTURES: There is multilevel spurring and vacuum disc phenomenon near thoracolumbar juncti on. OTHER: There is moderate to severe calcified plaque of the aorta with significant calcified plaque ex tending into pelvic branch vessels. There is low lying IVC filter at the IVC bifurcation redemonstrated. There is small to moderate amount of abdominal ascites most prominent in the perihepatic level. Findi ng presumed product of renal failure and peritoneal dialysis. IMPRESSION: No significant new or acute finding is seen to account for patient's symptoms.
== END | disposition home or self-care (01) ==
LOC: RADCTMAIN 12:17
PROVIDERS: ATTEND Internal Medicine Nephrology
DX: R10.11 Right upper quadrant pain (principal)
CPT/HCPCS: 71250; 74150; Q9967

== ENCOUNTER 2017-01-01 11:01 | Inpatient (IN) | payer MEDICARE, BC ==
[2017-01-01 12:54] LABS: Glucose,Whole Blood 177 mg/dL (75-99)
--- NOTE | 2017-01-01 13:23 | P.HPIM ---
History of Present Illness H&P Date: 01/01/17 Chief Complaint: Kennedy-black second toe of the right foot This is a 61-year-old male with a known past medical history of chronic renal failure with right kidney transplant on peritoneal dialysis. Also history of congestive heart failure, diabetes mellitus type 2, coronary artery disease with previous coronary artery bypass grafting, atrial fibrillation in which he is on Coumadin, peripheral vascular disease secondary to his diabetes mellitus and has required a left below the knee amputation, DVT of the lower extremity and has had [place] filter placed, hypertension and hyperlipidemia. Patient noted discoloration an ulcer on his second toe of his right foot 2 days ago. He went to see Dr. Mosquera as soon as he noticed changes yesterday. Patient initially had a blister on the toe. The toe has now become kennedy and black in color. Patient has no sensation in his feet due to his diabetes. There is also some sloughing white tissue on the pad of his foot. He was started on Keflex And referred to see Dr. Dugan. Patient was able to get into Dr. Dugan's office today. Patient was evaluated by Dr. Dugan and told to grow go directly to the hospital and likely that he'll need an amputation on that second toe. Patient has had previous amputations on the right great toe. Patient reports no history of MRSA. He has been admitted to the hospital will be started on IV antibiotics in the form of IV Zosyn. Vascular surgery and infectious disease will be consulted. Nephrology will also be consulted due to patient's end-stage renal disease on peritoneal dialysis. Patient also reports a penis ulcer after spilling coffee on himself a few weeks ago. The ulcer is nonhealing. The ulcer is about 1 cm in size that is red around the edges with some granulation tissue. Patient reports that it is painful. Again will consult infectious disease and cover with IV antibiotics. Patient denies any fever, chills, sweats. Denies any nausea or vomiting. Denies any bowel movement changes or urinary symptoms. He does report improvement in his cough. He was recently hospitalized on December 18 and treated for pneumonia and CHF exacerbation. He did report still having some right-sided rib pain and nephrology had ordered a CAT scan of the chest and abdomen without contrast on December 29. It showed no significant new or acute findings. Review of Systems Please refer to HPI otherwise unremarkable Past Medical History Past Medical History: Atrial Fibrillation, Coronary Artery Disease (CAD), Heart Failure, Diabetes Mellitus, Dialysis, Deep Vein Thrombosis (DVT), GERD/Reflux, Hyperlipidemia, Hypertension, Myocardial Infarction ([place]), Osteoarthritis (OA), Pneumonia, Renal Disease, Thyroid Disorder, Vascular Disorder Additional Past Medical History / Comment(s): TAKES NO CURRENT MEDS FOR THYROID , STATES HAS ONE CURRENT KIDNEY TRANSPLANT THAT IS FAILING. HAS LEFT BELOW KNEE PROSTHESIS, ANEMIA,"RECENT BX,PT BELEIVES IT WAS THE TEMPEROL ARTERY" AND STATES HE HAS LOST THE VISON IN RT EYE SINCE, GLAUCOMA. Last Myocardial Infarction Date:: 2009 History of Any Multi-Drug Resistant Organisms: None Reported Past Surgical History: Adenoidectomy, Bariatric Surgery, Coronary Bypass/CABG, Heart Catheterization, Tonsillectomy Additional Past Surgical History / Comment(s): jamarcus fliter, kidney transplant-X2,CABG-2010 TRIPLE, gastric bypass, RT great toe amputation , [place] CATARACTS, RIGHT carotid endarterectomy, amputation lt BKA,angioplasty to the popliteal artery and posterior left femoral artery performed by Dr. Fowler on , RECENT BX-PT BELIEVES IT WAS OF THE RT TEMPERAL ARTERY. Past Anesthesia/Blood Transfusion Reactions: No Reported Reaction Additional Past Anesthesia/Blood Transfusion Reaction / Comment(s): HX BLOOD TRANSFUSIONS- NO REACTIONS . Smoking Status: Never smoker - Past Family History Father Family Medical History: Diabetes Mellitus, Dialysis Additional Family Medical History / Comment(s): "big heart", bilat BKA Mother Family Medical History: Cancer Additional Family Medical History / Comment(s): colon Medications and Allergies Home Medications Medication Instructions Recorded Confirmed Type Cholecalciferol [Vitamin D3] 2,000 mg PO BID 05/17/14 12/18/16 History Sodium Bicarbonate Tab 650 mg PO BID 05/17/14 12/18/16 History Tacrolimus [Prograf] 2 mg PO BID 12/06/14 12/18/16 History Magnesium Gluconate [Magonate] 500 mg PO DAILY 02/01/15 12/18/16 History Aspirin EC [Ecotrin Low Dose] 81 mg PO HS 02/12/16 12/18/16 History Atorvastatin [Lipitor] 80 mg PO HS 02/12/16 12/18/16 History Calcitriol 1 mcg PO BID 02/12/16 12/18/16 History Vit C/E/Zn/Coppr/Lutein/Zeaxan 1 cap PO BID 02/12/16 12/18/16 History [Preservision Areds 2 Softgel] Temazepam [Restoril] 15 mg PO HS 07/18/16 12/18/16 History INSULIN LISPRO (HumaLOG) [humaLOG] See Protocol SQ ACHS 07/19/16 12/18/[address] [Myfortic] 360 mg PO DAILY 09/15/16 12/18/16 History Warfarin [Coumadin] 1 mg PO DAILY 11/12/16 12/18/16 History Allergies Allergy/AdvReac Type Severity Reaction Status Date / Time codeine AdvReac Severe constipatio Verified 12/18/16 12:25 n Physical Exam Head normocephalic Neck supple Lungs clear to auscultation bilaterally no wheezing or crackles Heart regular rate and rhythm S1-S2, no rub or gallop Abdomen is soft nontender nondistended positive bowel sounds no hepatosplenomegaly Extremities right foot second toe toe is discolored kennedy and black. There is no feeling in the toe. There is a +2 dorsalis pedis pulse. There is some redness noted on the third toe. There is sloughing white tissue on the pad of the foot. Patient has a left below the knee amputation. Neuro alert and orientated to 3 : A 1 cm ulcer on the left side of the penis. No drainage. Tender with palpation. Red around the edge of the ulcer whitish discoloration in the middle. Results Labs: Abnormal Lab Results - Last 24 Hours (Table) 01/01/17 Range/Units 12:45 POC Glucose (mg/dL) 177 H (75-99) mg/dL Assessment and Plan Plan: 1. Gangrene of the second toe on the right foot: Failed outpatient antibiotics with Keflex. Vascular surgery and infectious disease have been consulted. Start patient on IV Zosyn. 2. Penis ulcer secondary to a coffee burn. Infectious disease consulted. Continue IV antibiotics. 3. Chronic kidney disease stage IV with history of right kidney transplant secondary to renal failure from his diabetes mellitus. Patient is on peritoneal dialysis. Nephrology will be consulted 4. Diabetes mellitus type 2: Uses sliding scale coverage at home. Place patient on sliding scale coverage. Hemoglobin A1c on last admission 4.7 5. Chronic atrial fibrillation: Anticoagulated with Coumadin. Check PT/INR. Hold Coumadin for possible amputation of the toe 6. History of peripheral vascular disease secondary to his diabetes mellitus and had required a left below the knee amputation 7. Chronic systolic CHF: No evidence of exacerbation. Echo from September 2016 shows an EF of 45-50% 8. Recent hospitalization with pneumonia and CHF exacerbation. Symptoms improved GI prophylaxis Pepcid Time with Patient: Greater than 30 (Greater than 50% of the total time spent in counseling and coordination of care.I performed an examination of the patient and discussed their management with the physician Affirmative Action Officer. I have reviewed the Physician Affirmative Action Officer's notes and agree with the documented findings and plan of care)
[2017-01-01 13:33] LABS: Basophils % (A) 0 %; CH 29.7; Eosinophils % (A) 0 %; HDW 2.89; HGB 10.9 gm/dL (13.0-17.5); Hypochromasia Marked; Luc # (Auto) 0.09; Luc % (Auto) 1; Lymphocytes # (A) 0.5 k/uL (1.0-4.8); Lymphocytes % (A) 6 %; MCH 29.2 pg (25.0-35.0); MCHC 29.4 g/dL (31.0-37.0); MCV 99.1 fL (80.0-100.0); Macrocytosis Slight; Mean Platelet Volume 8.5; Monocytes # (A) 0.4 k/uL (0-1.0); Monocytes % (A) 5 %; Neutrophils # (A) 7.4 k/uL (1.3-7.7); Neutrophils % (A) 88 %; RBC 3.73 m/uL (4.30-5.90); RDW 15.4 % (11.5-15.5); WBC 8.4 k/uL (3.8-10.6)
[2017-01-01 13:41] LABS: INR 1.1 (<1.2); Prothrombin Time 11.3 sec (9.0-12.0)
[2017-01-01 13:42] LABS: Calcium 8.8 mg/dL (8.4-10.2); Potassium 4.3 mmol/L (3.5-5.1); Total Bilirubin 0.3 mg/dL (0.2-1.3); Total Protein 4.6 g/dL (6.3-8.2)
[2017-01-01] MEDS: PIPERACILLIN-TAZOBACTAM 3.375 GM in DEXTROSE/WATER 1 50ML.BAG IVPB SCH ×2 (15:16→20:59)
[2017-01-01] MEDS ORDERED: DOCUSATE 100 MG CAP PO PRN (15:21)
[2017-01-01] MEDS ORDERED: MIDODRINE 5 MG TAB PO PRN (15:42)
[2017-01-01 17:02] LABS: Glucose,Whole Blood 144 mg/dL (75-99)
[2017-01-01] MEDS: INSULIN LISPRO (humaLOG) 300 UNIT/3 ML VIAL SQ SCH ×2 (17:53→21:07)
[2017-01-01] MEDS: FUROSEMIDE 20 MG TAB PO SCH ×2 (17:53→21:01)
[2017-01-01] MEDS ORDERED: PHYTONADIONE ORAL 5 MG/5 ML ORAL.SYRG PO STA (18:04)
[2017-01-01] MEDS: WARFARIN 1 MG TAB PO SCH (18:13)
[2017-01-01] MEDS: DIALYSIS (PERIT 2.5%) 2,000 ML 50 G/2,000 ML BAG INTRAPERIT SCH ×2 (18:52→23:37)
[2017-01-01] MEDS: CALCITRIOL 0.25 MCG CAP PO SCH (20:58)
[2017-01-01] MEDS: TACROLIMUS 1 MG CAP PO SCH (20:58)
[2017-01-01] MEDS: FERROUS SULFATE 325 MG TAB PO SCH (20:58)
[2017-01-01] MEDS: CHOLECALCIFEROL 1,000 UNIT TAB PO SCH (20:58)
[2017-01-01] MEDS: SODIUM BICARBONATE TAB 650 MG TAB PO SCH (20:58)
[2017-01-01] MEDS ORDERED: ATORVASTATIN 80 MG TAB PO SCH (21:00)
[2017-01-01] MEDS: TEMAZEPAM 15 MG CAP PO SCH (21:00)
[2017-01-01 21:26] LABS: Glucose,Whole Blood 272 mg/dL (75-99)
--- NOTE | 2017-01-01 21:55 | P.CONS ---
History of Present Illness - Reason for Consult Consult date: 01/01/17 - Chief Complaint Right foot blister - History of Present Illness Jasbir 61-year-old male who has a history of diabetes mellitus type 2 with many complications that includes end-stage renal disease. He did have a renal transplantation but that has failed. And now undergoes chronic and which were approaching hemodialysis for the renal failure. 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 The patient relates that he is doing modestly well as of late. He did have foot evaluation some toenail cutting performed. Now 3 weeks later he developed evidence of a blister onto his right foot associated with erythema and swelling to the residual second toe. With his neuropathy is not having pain but is very concerned given the left [id number] amputation for limb salvage. Patient denies any known trauma but patient was recently hospitalized. At that point and there was concerns about potential for a pneumonia. He was treated with antibiotics with Augmentin. [place] the patient developed worsening of his congestive heart failure and volume overload. Apparently he had nearly a 40 pound water weight gain. During his hospital stay he received diuretic therapy and intensive dialysis therapy. He now feels considerably better after that hospital stay and his ongoing dialysis at home. He is not having high-grade fevers, chills or rigors. Review of Systems Jasbir 61-year-old male comfortable at this time HEENT:Denies headache or acute visual change. Denies sinus or mouth discomforts. Denies neck stiffness or pain. Denies significant oral cavity pain. Denies difficulty on swallowing. Lungs: Denies significant shortness of breath, cough, sputum production, or hemoptysis. Cardiovascular: Denies significant shortness of breath, chest pain, chest wall pain, orthopnea, dyspnea on exertion, syncope Gastrointestinal:Denies nausea, vomiting, diarrhea, constipation, hematemesis, melena, hematochezia. No no significant change of bowel habit noticed. Musculoskeletal: denies significant myalgias or arthralgias. No new joint swelling. Denies new back pain. Skin: Per the HPI Neuro: Denies headache or visual change. Denies any new onset weakness or difficulty with ambulation. Denies falls or seizures. Psychiatric:Denies anxiety or depression. Endocrine: Denies significant fatigue, denies significant weight loss or weight gain. Past Medical History Past Medical History: Atrial Fibrillation, Coronary Artery Disease (CAD), Heart Failure, Diabetes Mellitus, Dialysis, Deep Vein Thrombosis (DVT), GERD/Reflux, Hyperlipidemia, Hypertension, Myocardial Infarction ([place]), Osteoarthritis (OA), Pneumonia, Renal Disease, Thyroid Disorder, Vascular Disorder Additional Past Medical History / Comment(s): TAKES NO CURRENT MEDS FOR THYROID , STATES HAS ONE CURRENT KIDNEY TRANSPLANT THAT IS FAILING. HAS LEFT BELOW KNEE PROSTHESIS, ANEMIA,"RECENT BX,PT BELEIVES IT WAS THE TEMPEROL ARTERY" AND STATES HE HAS LOST THE VISON IN RT EYE SINCE, GLAUCOMA. Last Myocardial Infarction Date:: 2009 History of Any Multi-Drug Resistant Organisms: None Reported Past Surgical History: Adenoidectomy, Bariatric Surgery, Coronary Bypass/CABG, Heart Catheterization, Tonsillectomy Additional Past Surgical History / Comment(s): jamarcus fliter, kidney transplant-X2,CABG-2010 TRIPLE, gastric bypass, RT great toe amputation , [place] CATARACTS, RIGHT carotid endarterectomy, amputation lt BKA,angioplasty to the popliteal artery and posterior left femoral artery performed by Dr. Fowler on , RECENT BX-PT BELIEVES IT WAS OF THE RT TEMPERAL ARTERY. Past Anesthesia/Blood Transfusion Reactions: No Reported Reaction Additional Past Anesthesia/Blood Transfusion Reaction / Comm: HX BLOOD TRANSFUSIONS- NO REACTIONS . Additional Psychological History / Comment(s): Single. Lives in a family home with his daughter and her 2 children. [employer] nonsmoker. No significant alcohol use. Medically disabled. Pet dog. No experience Smoking Status: Never smoker - Past Family History Father Family Medical History: Diabetes Mellitus, Dialysis Additional Family Medical History / Comment(s): "big heart", bilat BKA Mother Family Medical History: Cancer Additional Family Medical History / Comment(s): colon Medications and Allergies Home Medications and Allergies Comment(s): Current Medications Atorvastatin Calcium (Lipitor) 80 mg PO HS [facility] Last Admin: 01/01/17 20:58 Dose: 80 mg Calcitriol (Rocaltrol) 0.5 mcg PO BID [facility] Last Admin: 01/01/17 20:58 Dose: 0.5 mcg Cholecalciferol (Vitamin D3) 2,000 unit PO BID [facility] Last Admin: 01/01/17 20:58 Dose: 2,000 unit Docusate Sodium (Colace) 100 mg PO BID PRN PRN Reason: Constipation Ferrous Sulfate (Feosol) 325 mg PO BID [facility] Last Admin: 01/01/17 20:58 Dose: 325 mg Furosemide (Lasix) 20 mg PO TID [facility] Last Admin: 01/01/17 21:01 Dose: 20 mg Piperacillin/Tazobactam/ (Dextrose 3.375 gm/ IV Solution) 50 mls @ 12.5 mls/hr IVPB Q12HR [facility] Last Admin: 01/01/17 20:59 Dose: 12.5 mls/hr Peritoneal Dialysis Solution (Delflex With 2.5% Dextrose (2,000 Ml)) 50 g in 2, 000 mls @ 0 mls/hr INTRAPERIT Q6HR [facility]; As Directed PRN Reason: Protocol Stop: 01/09/17 18:01 Last Admin: 01/01/17 18:52 Dose: 2,000 mls/hr Insulin Human Lispro (Humalog) 0 unit SQ ACHS [facility] PRN Reason: Protocol Last Admin: 01/01/17 21:07 Dose: 4 unit Magnesium Oxide (Mag-Ox) 400 mg PO DAILY [facility] Midodrine (Proamatine) 5 mg PO DAILY PRN PRN Reason: IF SBP LESS THEN 110 IN AM Midodrine (Proamatine) 10 mg PO DAILY PRN PRN Reason: IF SBP GREATER THEN 110 IN AM Multivit/Ca Carb/B Cmplx/FA/Prenat (Nephrocaps) 1 each PO DAILY [facility] Multivitamins/Minerals (Ivite) 1 each PO DAILY [facility] Mycophenolate Sodium (Myfortic) 360 mg PO DAILY [facility] Prednisone () 5 mg PO DAILY [facility] Sodium Bicarbonate (Sodium Bicarbonate Tab) 650 mg PO BID [facility] Last Admin: 01/01/17 20:58 Dose: 650 mg Tacrolimus (Prograf) 1 mg PO BID [facility] Last Admin: 01/01/17 20:58 Dose: 1 mg Temazepam (Restoril) 15 mg PO HS [facility] Last Admin: 01/01/17 21:00 Dose: 15 mg Warfarin Sodium (Coumadin) 1 mg PO DAILY@1800 [facility] Last Admin: 01/01/17 18:13 Dose: Not Given Home Medications Medication Instructions Recorded Confirmed Type Cholecalciferol [Vitamin D3] 2,000 mg PO BID 05/17/14 01/01/17 History Sodium Bicarbonate Tab 650 mg PO BID 05/17/14 01/01/17 History Tacrolimus [Prograf] 1 mg PO BID 12/06/14 01/01/17 History Magnesium Gluconate [Magonate] 500 mg PO DAILY 02/01/15 01/01/17 History Aspirin EC [Ecotrin Low Dose] 81 mg PO HS 02/12/16 01/01/17 History Atorvastatin [Lipitor] 80 mg PO HS 02/12/16 01/01/17 History Calcitriol 0.5 mcg PO BID 02/12/16 01/01/17 History Vit C/E/Zn/Coppr/Lutein/Zeaxan 1 cap PO BID 02/12/16 01/01/17 History [Preservision Areds 2 Softgel] Temazepam [Restoril] 15 mg PO HS 07/18/16 01/01/17 History INSULIN LISPRO (HumaLOG) [humaLOG] See Protocol SQ ACHS 07/19/16 01/01/[address] [Myfortic] 360 mg PO DAILY 09/15/16 01/01/17 History Warfarin [Coumadin] 1 mg PO DAILY 11/12/16 01/01/17 History Cephalexin [Keflex] 500 mg PO TID 01/01/17 01/01/17 History Docusate [Colace] 100 mg PO BID PRN 01/01/17 01/01/17 History Furosemide [Lasix] 20 mg PO TID 01/01/17 01/01/17 History Midodrine HCl [ProAmatine] 5 mg PO DIRECTED 01/01/17 01/01/17 History Renaplex D Vitamin 1 tab PO DAILY 01/01/17 01/01/17 History Allergies Allergy/AdvReac Type Severity Reaction Status Date / Time codeine AdvReac Severe constipatio Verified 01/01/17 13:35 n Physical Exam Vitals: Vital Signs Temp Pulse Pulse Resp BP BP Pulse Ox 01/01/17 18:53 97.0 F L 90 144/77 99 01/01/17 15:00 97.7 F 67 20 132/57 100 01/01/17 12:45 96.6 F L 72 20 166/72 100 Intake and Output 01/01/17 01/01/17 01/01/17 06:59 14:59 22:59 Output Total 0 Balance 0 Output: Urine 0 Other: Weight 77.5 kg 77.5 kg Patient Weight 01/02/17 06:59 Weight 77.5 kg Pleasant 61-year-old male presents to Hospital with significant change to his right foot. HEENT: Anicteric conjunctiva are pink and moist nasal mucosa grossly intact without significant lesions, there is no thrush. Neck: The neck is supple without significant lymphadenopathy or thyromegaly. Lungs: Good bilateral air entry without significant crackles or wheezing. There is no significant bronchial sounds. There is no egophony or dullness. Heart: Irregular with an audible S1 and S2. No S3 soft S4 2/6 systolic murmur left sternal border is holosystolic. Abdomen: Positive bowel sounds soft and nontender without palpable masses or organomegaly. There was no guarding or rebound. Extremities: The prior shunt to the left arm is only minimal thrill and apparently is not functional for hemodialysis. The left lower extremity below the knee amputation residual limb is in good order. There is no erythema or crepitance or fluctuance. He wears a manager mba and has no edema or lesions. The right lower extremity shows evidence of the great toe amputation. This is well-healed. However there is evidence of some swelling to the distal aspect of the foot and evidence of a significant blister that had formed plantar to the second toe. There is a large amount of blister tissue that is easily wiped away. Ulceration is seen in approximately 1.2 x 1.2 x 0.2 cm no expressible purulence the second toe is dusky in its appearance Neuro: Awake alert oriented to person place and time. There are no acute new gross focal sensory motor deficits. Results CBC & Chem 7: 01/01/17 13:10 01/01/17 13:10 Labs: Abnormal Lab Results - Last 24 Hours (Table) 01/01/17 01/01/17 01/01/17 Range/Units 12:45 13:10 13:10 RBC 3.73 L (4.30-5.90) m/uL Hgb 10.9 L (13.0-17.5) gm/dL Hct 37.0 L (39.0-53.0) % MCHC 29.4 L (31.0-37.0) g/dL Lymphocytes # 0.5 L (1.0-4.8) k/uL BUN 36 H (9-20) mg/dL Creatinine 3.27 H (0.66-1.25) mg/dL Glucose 158 H (74-99) mg/dL POC Glucose (mg/dL) 177 H (75-99) mg/dL Total Protein 4.6 L (6.3-8.2) g/dL Albumin 2.3 L (3.5-5.0) g/dL 01/01/17 01/01/17 Range/Units 16:57 21:06 RBC (4.30-5.90) m/uL Hgb (13.0-17.5) gm/dL Hct (39.0-53.0) % MCHC (31.0-37.0) g/dL Lymphocytes # (1.0-4.8) k/uL BUN (9-20) mg/dL Creatinine (0.66-1.25) mg/dL Glucose (74-99) mg/dL POC Glucose (mg/dL) 144 H 272 H (75-99) mg/dL Total Protein (6.3-8.2) g/dL Albumin (3.5-5.0) g/dL Laboratory Results WBC 8.4 k/uL (3.8-10.6) 01/01/17 13:10 RBC 3.73 m/uL (4.30-5.90) L 01/01/17 13:10 Hgb 10.9 gm/dL (13.0-17.5) L 01/01/17 13:10 Hct 37.0 % (39.0-53.0) L 01/01/17 13:10 MCV 99.1 fL (80.0-100.0) 01/01/17 13:10 MCH 29.2 pg (25.0-35.0) 01/01/17 13:10 MCHC 29.4 g/dL (31.0-37.0) L 01/01/17 13:10 RDW 15.4 % (11.5-15.5) 01/01/17 13:10 Plt Count 347 k/uL (150-450) 01/01/17 13:10 Neutrophils % 88 % 01/01/17 13:10 Lymphocytes % 6 % 01/01/17 13:10 Monocytes % 5 % 01/01/17 13:10 Eosinophils % 0 % 01/01/17 13:10 Basophils % 0 % 01/01/17 13:10 Neutrophils # 7.4 k/uL (1.3-7.7) 01/01/17 13:10 Lymphocytes # 0.5 k/uL (1.0-4.8) L 01/01/17 13:10 Monocytes # 0.4 k/uL (0-1.0) 01/01/17 13:10 Eosinophils # 0.0 k/uL (0-0.7) 01/01/17 13:10 Basophils # 0.0 k/uL (0-0.2) 01/01/17 13:10 Hypochromasia Marked 01/01/17 13:10 Macrocytosis Slight 01/01/17 13:10 PT 11.3 sec (9.0-12.0) 01/01/17 13:10 INR 1.1 (<1.2) 01/01/17 13:10 Sodium 138 mmol/L (137-145) 01/01/17 13:10 Potassium 4.3 mmol/L (3.5-5.1) 01/01/17 13:10 Chloride 102 mmol/L (98-107) 01/01/17 13:10 Carbon Dioxide 29 mmol/L (22-30) 01/01/17 13:10 Anion Gap 7 mmol/L 01/01/17 13:10 BUN 36 mg/dL (9-20) H 01/01/17 13:10 Creatinine 3.27 mg/dL (0.66-1.25) H 01/01/17 13:10 Est GFR (MDRD) Af Amer 23 (>60 ml/min/1.73 sqM) 01/01/17 13:10 Est GFR (MDRD) Non-Af 19 (>60 ml/min/1.73 sqM) 01/01/17 13:10 Glucose 158 mg/dL (74-99) H 01/01/17 13:10 POC Glucose (mg/dL) 272 mg/dL (75-99) H 01/01/17 21:06 POC Glu Certified Residential Medication Aide [place] 01/01/17 21:06 Calcium 8.8 mg/dL (8.4-10.2) 01/01/17 13:10 Total Bilirubin 0.3 mg/dL (0.2-1.3) 01/01/17 13:10 AST 23 U/L (17-59) 01/01/17 13:10 ALT 39 U/L (21-72) 01/01/17 13:10 Alkaline Phosphatase 58 U/L (38-126) 01/01/17 13:10 Total Protein 4.6 g/dL (6.3-8.2) L 01/01/17 13:10 Albumin 2.3 g/dL (3.5-5.0) L 01/01/17 13:10 Assessment and Plan (1) Diabetic ulcer of right foot associated with diabetes mellitus due to underlying condition, with fat layer exposed Narrative/Plan: 61-year-old male who has a extensive history related to his diabetes mellitus type 2. He has had a right [id number] amputation and has done well with this. Recently had difficulties with his end-stage renal disease and volume overload. He was hospitalized and underwent extensive diuresis and enhancement of his CAPD. Feeling somewhat well at home until the sudden onset of swelling and blistering to his right foot distally at the base of the second toe. The toe is become a bit dusky and its appearance and there is evidence of ulceration. As noted the patient does have a known history of significant peripheral vascular disease multiple interventions and eventual amputation below the knee to the right. We'll have evaluation of his vascular status tomorrow and interventions as indicated. The patient does have a history of several resistant pathogens in consult antibiotic therapy utilize with Fortaz and daptomycin until further cultures are available. Local wound care and nonstick dressing until after his procedures tomorrow. Elevation the limb at rest. He is receiving ongoing peritoneal dialysis to ensure his volume status is adequate. Last A1c from 2 weeks ago was 4.7. Status: Acute (2) End-stage renal disease on peritoneal dialysis Status: Acute (3) Diabetes mellitus type 2, controlled, with complications Status: Acute
[2017-01-01] MEDS ORDERED: cefTAZidime 1 GM VIAL IM STA (21:56)
[2017-01-02] MEDS: DAPTOmycin 500 MG in SODIUM CHLORIDE 0.9% 50 ML IV SCH ×2 (00:17→22:24)
[2017-01-02] MEDS: DIALYSIS (PERIT 2.5%) 2,000 ML 50 G/2,000 ML BAG INTRAPERIT SCH ×4 (05:36→23:09)
[2017-01-02 07:21] LABS: Glucose,Whole Blood 124 mg/dL (75-99)
[2017-01-02] MEDS: SODIUM BICARBONATE TAB 650 MG TAB PO SCH ×2 (08:09→21:12)
[2017-01-02] MEDS: CHOLECALCIFEROL 1,000 UNIT TAB PO SCH ×2 (08:09→21:11)
[2017-01-02] MEDS: VIT A,C & E-LUTEIN-MINERALS 1 EACH TAB PO SCH (08:09)
[2017-01-02] MEDS: FUROSEMIDE 20 MG TAB PO SCH ×3 (08:09→21:13)
[2017-01-02] MEDS: TACROLIMUS 1 MG CAP PO SCH ×2 (08:09→21:13)
[2017-01-02] MEDS: MAGNESIUM OXIDE 400 MG TAB PO SCH (08:09)
[2017-01-02] MEDS: FERROUS SULFATE 325 MG TAB PO SCH ×2 (08:09→22:24)
[2017-01-02] MEDS: predniSONE 5 MG TAB PO SCH (08:09)
[2017-01-02] MEDS: CALCITRIOL 0.25 MCG CAP PO SCH ×2 (08:09→21:11)
[2017-01-02] MEDS: MYCOPHENOLATE SODIUM DR 180 MG TABLET.DR PO SCH (08:09)
[2017-01-02] MEDS: FOLIC ACID-VIT B COMPLEX-VIT C 1 CAP PO SCH (08:09)
[2017-01-02] MEDS: INSULIN LISPRO (humaLOG) 300 UNIT/3 ML VIAL SQ SCH ×4 (08:10→21:12)
[2017-01-02] MEDS ORDERED: CEFTAZIDIME IVPB SCH (09:00)
[2017-01-02] MEDS ORDERED: SODIUM CHLORIDE 0.9% IVPB SCH (09:00)
--- NOTE | 2017-01-02 09:12 | P.NPCON ---
History of Present Illness - Reason for Consult end stage renal disease - History of Present Illness Reason for consultation: End-stage renal disease History of present illness: Patient is a 61-year-old male seen in renal consultation for end-stage renal disease. He is maintained on peritoneal dialysis. Patient does have a history of donor allograft that he received in 2010 at [facility]. Patient presented to the hospital with discoloration of his right foot second toe. Patient was seen with vascular surgery and was advised to come to the hospital for potential amputation. He's being followed by infectious disease as well as currently maintained on broad-spectrum antibiotics. Denies edema. Patient states his peritoneal dialysate fluid has been clear. Denies any abdominal pain. Denies any nausea vomiting or diarrhea. Denies chest pain or shortness of breath. Hemodynamically stable. Vital signs are stable. General: The patient appeared well nourished and normally developed. HEENT: Head exam is unremarkable. Neck is without jugular venous distension. LUNGS: Lungs are clear to auscultation and percussion. Breath sounds decreased. HEART: Rate and Rhythm are regular. First and second heart sounds normal. No murmurs, rubs or gallops. ABDOMEN: Abdominal exam reveals normal bowel sounds. Non-tender and non- distended. No evidence of peritonitis. EXTREMITITES: No clubbing, cyanosis, or edema. Left below the knee amputation noted. Right foot wound dressing clean and dry without any obvious drainage. Past Medical History Past Medical History: Atrial Fibrillation, Coronary Artery Disease (CAD), Heart Failure, Diabetes Mellitus, Dialysis, Deep Vein Thrombosis (DVT), GERD/Reflux, Hyperlipidemia, Hypertension, Myocardial Infarction (NH), Osteoarthritis (OA), Pneumonia, Renal Disease, Thyroid Disorder, Vascular Disorder Additional Past Medical History / Comment(s): TAKES NO CURRENT MEDS FOR THYROID , STATES HAS ONE CURRENT KIDNEY TRANSPLANT THAT IS FAILING. HAS LEFT BELOW KNEE PROSTHESIS, ANEMIA,"RECENT BX,PT BELEIVES IT WAS THE TEMPEROL ARTERY" AND STATES HE HAS LOST THE VISON IN RT EYE SINCE, GLAUCOMA. Last Myocardial Infarction Date:: 2009 History of Any Multi-Drug Resistant Organisms: None Reported Past Surgical History: Adenoidectomy, Bariatric Surgery, Coronary Bypass/CABG, Heart Catheterization, Tonsillectomy Additional Past Surgical History / Comment(s): jamarcus fliter, kidney transplant-X2,CABG-2010 TRIPLE, gastric bypass, RT great toe amputation , [facility], RIGHT carotid endarterectomy, amputation lt BKA,angioplasty to the popliteal artery and posterior left femoral artery performed by Dr. Fowler on , RECENT BX-PT BELIEVES IT WAS OF THE RT TEMPERAL ARTERY. Past Anesthesia/Blood Transfusion Reactions: No Reported Reaction Additional Past Anesthesia/Blood Transfusion Reaction / Comment(s): HX BLOOD TRANSFUSIONS- NO REACTIONS . Additional Psychological History / Comment(s): Single. Lives in a family home with his daughter and her 2 children. [employer] nonsmoker. No significant alcohol use. Medically disabled. Pet dog. No experience Smoking Status: Never smoker - Past Family History Father Family Medical History: Diabetes Mellitus, Dialysis Additional Family Medical History / Comment(s): "big heart", bilat BKA Mother Family Medical History: Cancer Additional Family Medical History / Comment(s): colon Medications and Allergies Home Medications Medication Instructions Recorded Confirmed Type Cholecalciferol [Vitamin D3] 2,000 mg PO BID 05/17/14 01/01/17 History Sodium Bicarbonate Tab 650 mg PO BID 05/17/14 01/01/17 History Tacrolimus [Prograf] 1 mg PO BID 12/06/14 01/01/17 History Magnesium Gluconate [Magonate] 500 mg PO DAILY 02/01/15 01/01/17 History Aspirin EC [Ecotrin Low Dose] 81 mg PO HS 02/12/16 01/01/17 History Atorvastatin [Lipitor] 80 mg PO HS 02/12/16 01/01/17 History Calcitriol 0.5 mcg PO BID 02/12/16 01/01/17 History Vit C/E/Zn/Coppr/Lutein/Zeaxan 1 cap PO BID 02/12/16 01/01/17 History [Preservision Areds 2 Softgel] Temazepam [Restoril] 15 mg PO HS 07/18/16 01/01/17 History INSULIN LISPRO (HumaLOG) [humaLOG] See Protocol SQ ACHS 07/19/16 01/01/[address] [Myfortic] 360 mg PO DAILY 09/15/16 01/01/17 History Warfarin [Coumadin] 1 mg PO DAILY 11/12/16 01/01/17 History Cephalexin [Keflex] 500 mg PO TID 01/01/17 01/01/17 History Docusate [Colace] 100 mg PO BID PRN 01/01/17 01/01/17 History Furosemide [Lasix] 20 mg PO TID 01/01/17 01/01/17 History Midodrine HCl [ProAmatine] 5 mg PO DIRECTED 01/01/17 01/01/17 History Renaplex D Vitamin 1 tab PO DAILY 01/01/17 01/01/17 History Allergies Allergy/AdvReac Type Severity Reaction Status Date / Time codeine AdvReac Severe constipatio Verified 01/01/17 13:35 n Physical Exam Vitals: Vital Signs Temp Pulse Pulse Resp BP BP Pulse Ox 01/02/17 07:00 98.0 F 68 18 145/47 95 01/02/17 05:36 65 125/51 01/01/17 23:38 98.3 F 67 132/51 01/01/17 23:00 98.3 F 67 17 132/51 97 01/01/17 18:53 97.0 F L 90 144/77 99 01/01/17 15:00 97.7 F 67 20 132/57 100 01/01/17 12:45 96.6 F L 72 20 166/72 100 Intake and Output 01/01/17 01/02/17 01/02/17 22:59 06:59 14:59 Other: # Voids 1 Weight 77.5 kg 79.5 kg Results - Lab Results Most recent lab results Calcium 8.8 mg/dL (8.4-10.2) 01/01/17 13:10 01/01/17 13:10 01/01/17 13:10 Assessment and Plan Plan: Assessment: #1. End-stage renal disease maintained on peritoneal dialysis. #2. Right foot second toe gangrene. #3. History of donor allograft from [facility] in 2010. #4. Hypertension with chronic kidney disease. Controlled. #5. Anemia of chronic kidney disease. Hemoglobin at goal. #6. Peripheral vascular disease status post left [id number] amputation. #7. Insulin dependent diabetes mellitus. Plan: Continue with 2.5% 2 L exchanges every 6 hours. Continue with current dose of Myfortic, prednisone and Prograf. Being weaned as an outpatient. Vascular surgery and infectious disease following. Potential amputation this admission. Check phosphorus level. Thank you for the consultation. I will continue to follow the patient with you during his hospital stay.
[2017-01-02 09:13] LABS: Basophils % (A) 0 %; CH 29.6; CHCM 30.1; Eosinophils % (A) 0 %; HCT 34.6 % (39.0-53.0); HGB 10.5 gm/dL (13.0-17.5); Hypochromasia Marked; Luc # (Auto) 0.13; Luc % (Auto) 3; Lymphocytes # (A) 0.7 k/uL (1.0-4.8); Lymphocytes % (A) 13 %; MCHC 30.4 g/dL (31.0-37.0); MCV 98.6 fL (80.0-100.0); Macrocytosis Slight; Mean Platelet Volume 8.7; Monocytes # (A) 0.4 k/uL (0-1.0); Monocytes % (A) 7 %; Neutrophils # (A) 4.2 k/uL (1.3-7.7); Neutrophils % (A) 77 %; RBC 3.51 m/uL (4.30-5.90); RDW 15.7 % (11.5-15.5); WBC 5.4 k/uL (3.8-10.6); WBC (Perox) 5.67
[2017-01-02 09:21] LABS: INR 1.1 (<1.2); Prothrombin Time 10.8 sec (9.0-12.0)
[2017-01-02 09:27] LABS: Calcium 8.6 mg/dL (8.4-10.2); Phosphorous 3.9 mg/dL (2.5-4.5); Potassium 3.8 mmol/L (3.5-5.1); Total Bilirubin 0.4 mg/dL (0.2-1.3); Total Protein 4.1 g/dL (6.3-8.2)
--- NOTE | 2017-01-02 10:53 | P.PN ---
Subjective This is a 61-year-old male with a known past medical history of chronic renal failure with right kidney transplant on peritoneal dialysis. Also history of congestive heart failure, diabetes mellitus type 2, coronary artery disease with previous coronary artery bypass grafting, atrial fibrillation in which he is on Coumadin, peripheral vascular disease secondary to his diabetes mellitus and has required a left below the knee amputation, DVT of the lower extremity and has had [place] filter placed, hypertension and hyperlipidemia. Patient noted discoloration an ulcer on his second toe of his right foot 2 days ago. He went to see Dr. Mosquera as soon as he noticed changes yesterday. Patient initially had a blister on the toe. The toe has now become gallardo and black in color. Patient has no sensation in his feet due to his diabetes. There is also some sloughing white tissue on the pad of his foot. He was started on Keflex And referred to see Dr. Dugan. Patient was able to get into Dr. Dugan's office today. Patient was evaluated by Dr. Dugan and told to grow go directly to the hospital and likely that he'll need an amputation on that second toe. Patient has had previous amputations on the right great toe. Patient reports no history of MRSA. He has been admitted to the hospital will be started on IV antibiotics in the form of IV Zosyn. Vascular surgery and infectious disease will be consulted. Nephrology will also be consulted due to patient's end-stage renal disease on peritoneal dialysis. Patient also reports a penis ulcer after spilling coffee on himself a few weeks ago. The ulcer is nonhealing. The ulcer is about 1 cm in size that is red around the edges with some granulation tissue. Patient reports that it is painful. Again will consult infectious disease and cover with IV antibiotics. Patient denies any fever, chills, sweats. Denies any nausea or vomiting. Denies any bowel movement changes or urinary symptoms. He does report improvement in his cough. He was recently hospitalized on December 18 and treated for pneumonia and CHF exacerbation. He did report still having some right-sided rib pain and nephrology had ordered a CAT scan of the chest and abdomen without contrast on December 29. It showed no significant new or acute findings. 01/02/2017 patient was seen by infectious disease they have changed antibiotics to Fortaz and daptomycin. Zosyn was discontinued. Vascular surgery has ordered further vascular testing to be done today. Patient has no sensation in that foot. Dr. Nino did clean up the area around the foot and toe. Patient denies any chest pain, shortness of breath, nausea or vomiting. He reports having regular bowel movements. Denies any difficulty urinating. Objective - Vital Signs Vital signs: Vital Signs Temp 98.0 F 01/02/17 07:00 Pulse 68 01/02/17 07:00 Resp 18 01/02/17 07:00 BP 145/47 01/02/17 07:00 Pulse Ox 95 01/02/17 07:00 Intake & Output 01/01/17 01/02/17 01/02/17 18:59 06:59 18:59 Output Total 0 Balance 0 Weight 77.5 kg 79.5 kg Output: Urine 0 Other: # Voids 1 - Exam Head normocephalic Neck supple Lungs clear to auscultation bilaterally no wheezing or crackles Heart regular rate and rhythm S1-S2, no rub or gallop Abdomen is soft nontender nondistended positive bowel sounds no hepatosplenomegaly Extremities no edema. Blister tissue has been cleaned away. There is some redness noted on the second toe. There is still some dusky discoloration of that second toe. The plantar aspect of the foot is more red the lesser tissue has now been removed infectious disease Neuro alert and orientated to 3 - Labs CBC & Chem 7: 01/02/17 08:07 01/02/17 08:07 Labs: Abnormal Lab Results - Last 24 Hours (Table) 01/01/17 01/01/17 01/01/17 Range/Units 12:45 13:10 13:10 RBC 3.73 L (4.30-5.90) m/uL Hgb 10.9 L (13.0-17.5) gm/dL Hct 37.0 L (39.0-53.0) % MCHC 29.4 L (31.0-37.0) g/dL RDW (11.5-15.5) % Lymphocytes # 0.5 L (1.0-4.8) k/uL BUN 36 H (9-20) mg/dL Creatinine 3.27 H (0.66-1.25) mg/dL Glucose 158 H (74-99) mg/dL POC Glucose (mg/dL) 177 H (75-99) mg/dL AST (17-59) U/L Total Protein 4.6 L (6.3-8.2) g/dL Albumin 2.3 L (3.5-5.0) g/dL 01/01/17 01/01/17 01/02/17 Range/Units 16:57 21:06 07:15 RBC (4.30-5.90) m/uL Hgb (13.0-17.5) gm/dL Hct (39.0-53.0) % MCHC (31.0-37.0) g/dL RDW (11.5-15.5) % Lymphocytes # (1.0-4.8) k/uL BUN (9-20) mg/dL Creatinine (0.66-1.25) mg/dL Glucose (74-99) mg/dL POC Glucose (mg/dL) 144 H 272 H 124 H (75-99) mg/dL AST (17-59) U/L Total Protein (6.3-8.2) g/dL Albumin (3.5-5.0) g/dL 01/02/17 01/02/17 Range/Units 08:07 08:07 RBC 3.51 L (4.30-5.90) m/uL Hgb 10.5 L (13.0-17.5) gm/dL Hct 34.6 L (39.0-53.0) % MCHC 30.4 L (31.0-37.0) g/dL RDW 15.7 H (11.5-15.5) % Lymphocytes # 0.7 L (1.0-4.8) k/uL BUN 34 H (9-20) mg/dL Creatinine 3.51 H (0.66-1.25) mg/dL Glucose 112 H (74-99) mg/dL POC Glucose (mg/dL) (75-99) mg/dL AST 16 L (17-59) U/L Total Protein 4.1 L (6.3-8.2) g/dL Albumin 2.1 L (3.5-5.0) g/dL Assessment and Plan Plan: 1. Diabetic ulcer of the right foot and second toe: Patient seen by infectious disease they've cleared away some of the blister tissue. Adjusted antibiotics to Fortaz and daptomycin. Zosyn was discontinued. Patient evaluated by vascular surgery and scheduled for further vascular testing today. There is discussion about possible amputation of the second toe 2. Penis ulcer secondary to a coffee burn. Infectious disease consulted. Continue IV antibiotics. 3. Chronic kidney disease stage IV with history of right kidney transplant secondary to renal failure from his diabetes mellitus. Patient is on peritoneal dialysis. Nephrology will be consulted 4. Diabetes mellitus type 2: Uses sliding scale coverage at home. Place patient on sliding scale coverage. Hemoglobin A1c on last admission 4.7 5. Chronic atrial fibrillation: Anticoagulated with Coumadin. Check PT/INR. Hold Coumadin for possible amputation of the toe 6. History of peripheral vascular disease secondary to his diabetes mellitus and had required a left below the knee amputation 7. Chronic systolic CHF: No evidence of exacerbation. Echo from September 2016 shows an EF of 45-50% 8. Recent hospitalization with pneumonia and CHF exacerbation. Symptoms improved 9. Anemia of chronic kidney disease with iron deficiency anemia. Continue ferrous sulfate 10. History of coronary artery disease with previous coronary artery bypass graft 11. Severe protein calorie malnutrition. Patient refuses Glucerna shakes GI prophylaxis Pepcid I performed an examination of the patient and discussed their management with the physician [employer] Vice [employer]. I have reviewed the Physician [employer] Vice [employer]'s notes and agree with the documented findings and plan of care
[2017-01-02 12:32] LABS: Glucose,Whole Blood 107 mg/dL (75-99)
[2017-01-02] MEDS ORDERED: IV FLUID CONTINUATION 1,000 ML IV ONE (12:47)
[2017-01-02] MEDS: MIDAZOLAM 2 MG/2 ML VIAL IV ONE ×2 (12:47→12:52)
[2017-01-02] MEDS ORDERED: LIDOCAINE 2% INJ 20 MG/ML SQ ONE (13:03)
[2017-01-02] MEDS ORDERED: IODIXANOL 320 MG/ML 100 ML INTRAARTER ONE (13:10)
[2017-01-02] MEDS: SODIUM CHLORIDE 0.9% 1,000 ML IV SCH (13:30)
[2017-01-02 13:46] LABS: Glucose,Whole Blood 119 mg/dL (75-99)
--- NOTE | 2017-01-02 14:10 | IR ---
Fluoroscopy HISTORY: Arterial occlusion 1 minutes fluoroscopy time supplied to the referring clinician. 182 intraoperative C-arm images docu ment the procedure. See dictated report from vascular surgery.
[2017-01-02] MEDS ORDERED: CEPHALEXIN 500 MG CAP PO SCH (16:00)
[2017-01-02 17:18] LABS: Glucose,Whole Blood 174 mg/dL (75-99)
[2017-01-02] MEDS ORDERED: INSULIN LISPRO SQ SCH (17:30)
[2017-01-02] MEDS ORDERED: INSULIN LISPRO (humaLOG) 300 UNIT/3 ML VIAL SQ SCH (17:30)
--- NOTE | 2017-01-02 17:51 | P.PN ---
Subjective Principal diagnosis: Diabetic foot ulcer Jasbir 61-year-old male who has a history of diabetes mellitus type 2 with many complications that includes end-stage renal disease. He did have a renal transplantation but that has failed. And now undergoes chronic and which were approaching hemodialysis for the renal failure. 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 The patient relates that he is doing modestly well as of late. He did have foot evaluation some toenail cutting performed. Now 3 weeks later he developed evidence of a blister onto his right foot associated with erythema and swelling to the residual second toe. With his neuropathy is not having pain but is very concerned given the left [id number] amputation for limb salvage. Patient denies any known trauma but patient was recently hospitalized. At that point and there was concerns about potential for a pneumonia. He was treated with antibiotics with Augmentin. [place] the patient developed worsening of his congestive heart failure and volume overload. Apparently he had nearly a 40 pound water weight gain. During his hospital stay he received diuretic therapy and intensive dialysis therapy. He now feels considerably better after that hospital stay and his ongoing dialysis at home. He is not having high-grade fevers, chills or rigors. Has been taken to the catheterization lab for the peripheral vascular study. Evaluation for the need for amputation is in process. Objective - Vital Signs Vital signs: Vital Signs Temp 97.8 F 01/02/17 14:31 Pulse 70 01/02/17 14:31 Resp 18 01/02/17 07:00 BP 122/59 01/02/17 17:24 Pulse Ox 97 01/02/17 17:24 Intake & Output 01/01/17 01/02/17 01/02/17 18:59 06:59 18:59 Intake Total 100 Output Total 0 Balance 0 100 Weight 77.5 kg 79.5 kg 79.5 kg Intake: IV 100 Output: Urine 0 Other: # Voids 1 - Exam Jasbir 61-year-old male presents to Hospital with significant change to his right foot. HEENT: Anicteric conjunctiva are pink and moist nasal mucosa grossly intact without significant lesions, there is no thrush. Neck: The neck is supple without significant lymphadenopathy or thyromegaly. Lungs: Good bilateral air entry without significant crackles or wheezing. There is no significant bronchial sounds. There is no egophony or dullness. Heart: Irregular with an audible S1 and S2. No S3 soft S4 2/6 systolic murmur left sternal border is holosystolic. Abdomen: Positive bowel sounds soft and nontender without palpable masses or organomegaly. There was no guarding or rebound. Extremities: The prior shunt to the left arm is only minimal thrill and apparently is not functional for hemodialysis. The left lower extremity below the knee amputation residual limb is in good order. There is no erythema or crepitance or fluctuance. He wears a payroll auditor and has no edema or lesions. The right lower extremity shows evidence of the great toe amputation. This is well-healed. However there is evidence of some swelling to the distal aspect of the foot and evidence of a significant blister that had formed plantar to the second toe. There is a large amount of blister tissue that is easily wiped away. Ulceration is seen in approximately 1.2 x 1.2 x 0.2 cm no expressible purulence the second toe is dusky in its appearance Neuro: Patient has just had his procedure. - Labs CBC & Chem 7: 01/02/17 08:07 01/02/17 08:07 Labs: Abnormal Lab Results - Last 24 Hours (Table) 01/01/17 01/02/17 01/02/17 Range/Units 21:06 07:15 08:07 RBC 3.51 L (4.30-5.90) m/uL Hgb 10.5 L (13.0-17.5) gm/dL Hct 34.6 L (39.0-53.0) % MCHC 30.4 L (31.0-37.0) g/dL RDW 15.7 H (11.5-15.5) % Lymphocytes # 0.7 L (1.0-4.8) k/uL BUN (9-20) mg/dL Creatinine (0.66-1.25) mg/dL Glucose (74-99) mg/dL POC Glucose (mg/dL) 272 H 124 H (75-99) mg/dL AST (17-59) U/L Total Protein (6.3-8.2) g/dL Albumin (3.5-5.0) g/dL 01/02/17 01/02/17 01/02/17 Range/Units 08:07 12:30 13:42 RBC (4.30-5.90) m/uL Hgb (13.0-17.5) gm/dL Hct (39.0-53.0) % MCHC (31.0-37.0) g/dL RDW (11.5-15.5) % Lymphocytes # (1.0-4.8) k/uL BUN 34 H (9-20) mg/dL Creatinine 3.51 H (0.66-1.25) mg/dL Glucose 112 H (74-99) mg/dL POC Glucose (mg/dL) 107 H 119 H (75-99) mg/dL AST 16 L (17-59) U/L Total Protein 4.1 L (6.3-8.2) g/dL Albumin 2.1 L (3.5-5.0) g/dL 01/02/17 Range/Units 17:09 RBC (4.30-5.90) m/uL Hgb (13.0-17.5) gm/dL Hct (39.0-53.0) % MCHC (31.0-37.0) g/dL RDW (11.5-15.5) % Lymphocytes # (1.0-4.8) k/uL BUN (9-20) mg/dL Creatinine (0.66-1.25) mg/dL Glucose (74-99) mg/dL POC Glucose (mg/dL) 174 H (75-99) mg/dL AST (17-59) U/L Total Protein (6.3-8.2) g/dL Albumin (3.5-5.0) g/dL Microbiology - Last 24 Hours (Table) 01/01/17 23:50 Gram Stain - Preliminary Foot - Right Wound Culture - Preliminary Laboratory Results WBC 5.4 k/uL (3.8-10.6) 01/02/17 08:07 RBC 3.51 m/uL (4.30-5.90) L 01/02/17 08:07 Hgb 10.5 gm/dL (13.0-17.5) L 01/02/17 08:07 Hct 34.6 % (39.0-53.0) L 01/02/17 08:07 MCV 98.6 fL (80.0-100.0) 01/02/17 08:07 MCH 30.0 pg (25.0-35.0) 01/02/17 08:07 MCHC 30.4 g/dL (31.0-37.0) L 01/02/17 08:07 RDW 15.7 % (11.5-15.5) H 01/02/17 08:07 Plt Count 319 k/uL (150-450) 01/02/17 08:07 Neutrophils % 77 % 01/02/17 08:07 Lymphocytes % 13 % 01/02/17 08:07 Monocytes % 7 % 01/02/17 08:07 Eosinophils % 0 % 01/02/17 08:07 Basophils % 0 % 01/02/17 08:07 Neutrophils # 4.2 k/uL (1.3-7.7) 01/02/17 08:07 Lymphocytes # 0.7 k/uL (1.0-4.8) L 01/02/17 08:07 Monocytes # 0.4 k/uL (0-1.0) 01/02/17 08:07 Eosinophils # 0.0 k/uL (0-0.7) 01/02/17 08:07 Basophils # 0.0 k/uL (0-0.2) 01/02/17 08:07 Hypochromasia Marked 01/02/17 08:07 Macrocytosis Slight 01/02/17 08:07 PT 10.8 sec (9.0-12.0) 01/02/17 08:07 INR 1.1 (<1.2) 01/02/17 08:07 Sodium 138 mmol/L (137-145) 01/02/17 08:07 Potassium 3.8 mmol/L (3.5-5.1) 01/02/17 08:07 Chloride 101 mmol/L (98-107) 01/02/17 08:07 Carbon Dioxide 27 mmol/L (22-30) 01/02/17 08:07 Anion Gap 10 mmol/L 01/02/17 08:07 BUN 34 mg/dL (9-20) H 01/02/17 08:07 Creatinine 3.51 mg/dL (0.66-1.25) H 01/02/17 08:07 Est GFR (MDRD) Af Amer 22 (>60 ml/min/1.73 sqM) 01/02/17 08:07 Est GFR (MDRD) Non-Af 18 (>60 ml/min/1.73 sqM) 01/02/17 08:07 Glucose 112 mg/dL (74-99) H 01/02/17 08:07 POC Glucose (mg/dL) 174 mg/dL (75-99) H 01/02/17 17:09 POC Glu Director Hematology ID Marley Miller 01/02/17 17:09 Calcium 8.6 mg/dL (8.4-10.2) 01/02/17 08:07 Phosphorus 3.9 mg/dL (2.5-4.5) 01/02/17 08:07 Total Bilirubin 0.4 mg/dL (0.2-1.3) 01/02/17 08:07 AST 16 U/L (17-59) L 01/02/17 08:07 ALT 34 U/L (21-72) 01/02/17 08:07 Alkaline Phosphatase 50 U/L (38-126) 01/02/17 08:07 Total Protein 4.1 g/dL (6.3-8.2) L 01/02/17 08:07 Albumin 2.1 g/dL (3.5-5.0) L 01/02/17 08:07 Microbiology 01/01/17 23:50 Foot - Right Gram Stain - Preliminary 01/01/17 23:50 Foot - Right Wound Culture - Preliminary Assessment and Plan (1) Diabetic ulcer of right foot associated with diabetes mellitus due to underlying condition, with fat layer exposed Narrative/Plan: 61-year-old male who has a extensive history related to his diabetes mellitus type 2. He has had a right kktad-ijv-[id number] amputation and has done well with this. Recently had difficulties with his end-stage renal disease and volume overload. He was hospitalized and underwent extensive diuresis and enhancement of his CAPD. Feeling somewhat well at home until the sudden onset of swelling and blistering to his right foot distally at the base of the second toe. The toe is become a bit dusky and its appearance and there is evidence of ulceration. As noted the patient does have a known history of significant peripheral vascular disease multiple interventions and eventual amputation below the knee to the right. Patient has undergone vascular evaluations at this point in time. Await the final studies for plans. The patient does have a history of several resistant pathogens in consult antibiotic therapy utilize with Fortaz and daptomycin until further cultures are available. Local wound care and nonstick dressing until after his procedures tomorrow. Elevation the limb at rest. He is receiving ongoing peritoneal dialysis to ensure his volume status is adequate. Last A1c from 2 weeks ago was 4.7. Status: Acute (2) End-stage renal disease on peritoneal dialysis Status: Acute (3) Diabetes mellitus type 2, controlled, with complications Status: Acute
[2017-01-02] MEDS: WARFARIN 1 MG TAB PO SCH (19:47)
[2017-01-02 20:14] LABS: Hemoglobin A1C 5.3 % (4.2-6.1)
[2017-01-02 20:28] LABS: Glucose,Whole Blood 335 mg/dL (75-99)
[2017-01-02] MEDS: ASPIRIN 81 MG CHEW PO SCH (21:11)
[2017-01-02] MEDS: TEMAZEPAM 15 MG CAP PO SCH (23:48)
[2017-01-03] MEDS: DIALYSIS (PERIT 2.5%) 2,000 ML 50 G/2,000 ML BAG INTRAPERIT SCH ×4 (05:41→23:50)
[2017-01-03 06:58] LABS: Glucose,Whole Blood 112 mg/dL (75-99)
[2017-01-03] MEDS: INSULIN LISPRO (humaLOG) 300 UNIT/3 ML VIAL SQ SCH ×4 (07:14→22:00)
[2017-01-03 08:12] LABS: Basophils % (A) 0 %; CH 29.4; CHCM 29.2; Eosinophils % (A) 0 %; HCT 36.6 % (39.0-53.0); HDW 2.88; HGB 10.6 gm/dL (13.0-17.5); Hypochromasia Marked; Luc # (Auto) 0.12; Luc % (Auto) 2; Lymphocytes # (A) 0.8 k/uL (1.0-4.8); Lymphocytes % (A) 15 %; MCH 29.3 pg (25.0-35.0); MCV 100.8 fL (80.0-100.0); Macrocytosis Slight; Mean Platelet Volume 8.6; Monocytes # (A) 0.4 k/uL (0-1.0); Monocytes % (A) 7 %; Neutrophils # (A) 4.1 k/uL (1.3-7.7); Neutrophils % (A) 74 %; RBC 3.63 m/uL (4.30-5.90); RDW 15.4 % (11.5-15.5); WBC 5.5 k/uL (3.8-10.6); WBC (Perox) 5.41
[2017-01-03 08:16] LABS: INR 1.1 (<1.2); Prothrombin Time 10.8 sec (9.0-12.0)
[2017-01-03 08:32] LABS: Calcium 8.8 mg/dL (8.4-10.2); Potassium 4.2 mmol/L (3.5-5.1); Total Bilirubin 0.4 mg/dL (0.2-1.3); Total Protein 4.5 g/dL (6.3-8.2)
--- NOTE | 2017-01-03 08:35 | PN ---
The patient is seen for followup for end-stage renal disease. He is currently maintained on peritoneal dialysis, which is functioning well. Patient is here with right toe gangrene and he is being followed by Vascular. There is consideration of possible amputation. On examination, blood pressure is 96/56, heart rate 85 per minute. Patient is afebrile. EXAMINATION OF THE HEART: S1 and S2. EXAMINATION OF THE LUNGS: Bilateral breath sounds are heard. Abdomen is soft, nontender. Examination of the lower extremities shows no evidence of edema. Patient has left BKA and his right foot is currently wrapped. Labs show sodium 138 from yesterday, potassium 3.8. Hemoglobin 10.5 grams per deciliter. ASSESSMENT: 1. End-stage renal disease, currently maintained on peritoneal dialysis, which we will continue. 2. Right toe gangrene being followed by Vascular with plans for possible amputation. 3. Volume overload, now improved. 4. Status post donor transplant, current on dialysis. Immunosuppression being slowly weaned off. 5. Peripheral vascular disease with history of left below knee amputation. PLAN: Continue current PD exchanges. I will decrease to 1.5% solution alternating with 2.5% solution starting from tomorrow. MTDD
[2017-01-03] MEDS: FUROSEMIDE 20 MG TAB PO SCH ×3 (08:45→22:04)
[2017-01-03] MEDS: MAGNESIUM OXIDE 400 MG TAB PO SCH (08:46)
[2017-01-03] MEDS: predniSONE 5 MG TAB PO SCH (08:46)
[2017-01-03] MEDS: FERROUS SULFATE 325 MG TAB PO SCH ×2 (08:46→21:59)
[2017-01-03] MEDS: CALCITRIOL 0.25 MCG CAP PO SCH ×2 (08:46→21:59)
[2017-01-03] MEDS: VIT A,C & E-LUTEIN-MINERALS 1 EACH TAB PO SCH (08:46)
[2017-01-03] MEDS: SODIUM BICARBONATE TAB 650 MG TAB PO SCH ×2 (08:46→21:59)
[2017-01-03] MEDS: TACROLIMUS 1 MG CAP PO SCH ×2 (08:46→22:00)
[2017-01-03] MEDS: CHOLECALCIFEROL 1,000 UNIT TAB PO SCH ×2 (08:46→21:59)
[2017-01-03] MEDS: FOLIC ACID-VIT B COMPLEX-VIT C 1 CAP PO SCH (08:46)
[2017-01-03] MEDS: MYCOPHENOLATE SODIUM DR 180 MG TABLET.DR PO SCH (08:47)
--- NOTE | 2017-01-03 10:06 | PCN ---
PREOP DIAGNOSIS: Peripheral vascular disease with infected gangrene of the right foot, second and third toe and the patient has second toe as hammertoe. PROCEDURE : Right leg angiogram. This patient had history of chronic renal failure, diabetes. The patient is on peritoneal dialysis. The patient was brought to the cath lab radiology technician. Right groin was prepped and draped in the usual sterile manner. 1% Lidocaine was infiltrated into the right groin. Micropuncture needle was introduced into the right femoral artery. Micropuncture guidewire was passed and exchanged for a 4 Arabic dilator and sheath. Flushed with heparin saline and right leg angiogram was performed. Right common and external iliac artery were visualized and was patent. Femoral artery was found to be patent. Profunda was visualized which was small in caliber. Right SFA had some plaque formation but is patent. At the Denis canal there is atherosclerosis disease causing about 30 to 40% stenosis. Infrapopliteal artery was patent. ( ) is visualized. Posterior tibial is not visualized. Anterior tibial is not visualized. Proximally, there is some atherosclerosis disease from 20 to 30% stenosis proximally at the ankle. Posterior tibial is not visualized. Anterior tibial is patent. On the foot, the posterior tibial does not fill the arch, only arterial ( ) dorsalis pedis with proximal stenosis. Also, distal stenosis noted at the ankle of the anterior tibial. IMPRESSION: 1. Right SFA atherosclerosis disease with some stenosis in the Denis canal. 2. Posterior tibial is totally occluded. Anterior peroneal is partially visualized. Anterior tibial is visualized which has multiple level occlusive disease. Catheter was removed. Pressure held. The patient tolerated the procedure well. NICKYD
--- NOTE | 2017-01-03 10:11 | P.PN ---
Progress Note - Text Patient has history of chronic renal failure, history of peripheral vascular disease, patient had angiogram done yesterday patient has a infrapopliteal occlusive disease of the right leg with posterior tibial occlusion and anterior tibial has stenosis at the origin of the anterior tibial artery and at the ankle posterior tibial is totally occluded patient also has ischemic changes of the toes patient will need to intervention for anterior tibial artery infrapopliteal occlusive disease
[2017-01-03 12:10] LABS: Glucose,Whole Blood 182 mg/dL (75-99)
--- NOTE | 2017-01-03 13:13 | P.PN ---
Subjective This is a 61-year-old male with a known past medical history of chronic renal failure with right kidney transplant on peritoneal dialysis. Also history of congestive heart failure, diabetes mellitus type 2, coronary artery disease with previous coronary artery bypass grafting, atrial fibrillation in which he is on Coumadin, peripheral vascular disease secondary to his diabetes mellitus and has required a left below the knee amputation, DVT of the lower extremity and has had [place] filter placed, hypertension and hyperlipidemia. Patient noted discoloration an ulcer on his second toe of his right foot 2 days ago. He went to see Dr. Mosquera as soon as he noticed changes yesterday. Patient initially had a blister on the toe. The toe has now become gallardo and black in color. Patient has no sensation in his feet due to his diabetes. There is also some sloughing white tissue on the pad of his foot. He was started on Keflex And referred to see Dr. Dugan. Patient was able to get into Dr. Dugan's office today. Patient was evaluated by Dr. Dugan and told to grow go directly to the hospital and likely that he'll need an amputation on that second toe. Patient has had previous amputations on the right great toe. Patient reports no history of MRSA. He has been admitted to the hospital will be started on IV antibiotics in the form of IV Zosyn. Vascular surgery and infectious disease will be consulted. Nephrology will also be consulted due to patient's end-stage renal disease on peritoneal dialysis. Patient also reports a penis ulcer after spilling coffee on himself a few weeks ago. The ulcer is nonhealing. The ulcer is about 1 cm in size that is red around the edges with some granulation tissue. Patient reports that it is painful. Again will consult infectious disease and cover with IV antibiotics. Patient denies any fever, chills, sweats. Denies any nausea or vomiting. Denies any bowel movement changes or urinary symptoms. He does report improvement in his cough. He was recently hospitalized on December 18 and treated for pneumonia and CHF exacerbation. He did report still having some right-sided rib pain and nephrology had ordered a CAT scan of the chest and abdomen without contrast on December 29. It showed no significant new or acute findings. 01/02/2017 patient was seen by infectious disease they have changed antibiotics to Fortaz and daptomycin. Zosyn was discontinued. Vascular surgery has ordered further vascular testing to be done today. Patient has no sensation in that foot. Dr. Nino did clean up the area around the foot and toe. Patient denies any chest pain, shortness of breath, nausea or vomiting. He reports having regular bowel movements. Denies any difficulty urinating. On 01/03/2017 patient is alert and oriented denies any pain or discomfort at this time he is undergoing peritoneal dialysis. Case was discussed was Dr. Dugan. Patient has significant peripheral vascular disease on angiogram, consultation was requested from Dr Fowler for angioplasty, patient will also require toe amputation which will be done later. He continues to be on Zosyn and daptomycin per Dr. Nino's recommendation, he is requesting changing his diet from diabetic diet to regular diet, otherwise he has no complaints. Objective - Vital Signs Vital signs: Vital Signs Temp 97.8 F 01/03/17 12:44 Pulse 79 01/03/17 12:44 Resp 16 01/03/17 12:44 BP 110/52 01/03/17 12:44 Pulse Ox 95 01/03/17 12:44 Intake & Output 01/02/17 01/03/17 01/03/17 18:59 06:59 18:59 Intake Total 880 100 180 Balance 880 100 180 Weight 79.5 kg 75.8 kg Intake: IV 100 100 DAPTOmycin 500 mg In 100 Sodium Chloride 0.9% 50 ml @ 100 mls/hr IV Q24H [facility] Rx#:[id number] Oral 780 180 Other: # Voids 1 - Exam In general patient is alert and oriented 3 HEENT head normocephalic and atraumatic Neck is supple no JVD no goiter no lymphadenopathy Cardiac exam reveals regular heart sounds no gallops no murmurs Chest exam reveals scattered crackles in both lung daniels no wheezing Abdomen is soft nontender no organomegaly Extremity exam reveals below knee amputation on the left, beaked toe amputation on the right, with significant discoloration in the middle toe with an ulcer beneath the middle toe. - Labs CBC & Chem 7: 01/03/17 07:31 01/03/17 07:31 Labs: Abnormal Lab Results - Last 24 Hours (Table) 01/02/17 01/02/17 01/02/17 Range/Units 13:42 17:09 20:27 RBC (4.30-5.90) m/uL Hgb (13.0-17.5) gm/dL Hct (39.0-53.0) % MCV (80.0-100.0) fL MCHC (31.0-37.0) g/dL Lymphocytes # (1.0-4.8) k/uL BUN (9-20) mg/dL Creatinine (0.66-1.25) mg/dL Glucose (74-99) mg/dL POC Glucose (mg/dL) 119 H 174 H 335 H (75-99) mg/dL Total Protein (6.3-8.2) g/dL Albumin (3.5-5.0) g/dL 01/03/17 01/03/17 01/03/17 Range/Units 06:56 07:31 07:31 RBC 3.63 L (4.30-5.90) m/uL Hgb 10.6 L (13.0-17.5) gm/dL Hct 36.6 L (39.0-53.0) % MCV 100.8 H (80.0-100.0) fL MCHC 29.0 L (31.0-37.0) g/dL Lymphocytes # 0.8 L (1.0-4.8) k/uL BUN 33 H (9-20) mg/dL Creatinine 3.45 H (0.66-1.25) mg/dL Glucose 109 H (74-99) mg/dL POC Glucose (mg/dL) 112 H (75-99) mg/dL Total Protein 4.5 L (6.3-8.2) g/dL Albumin 2.3 L (3.5-5.0) g/dL 01/03/17 Range/Units 11:30 RBC (4.30-5.90) m/uL Hgb (13.0-17.5) gm/dL Hct (39.0-53.0) % MCV (80.0-100.0) fL MCHC (31.0-37.0) g/dL Lymphocytes # (1.0-4.8) k/uL BUN (9-20) mg/dL Creatinine (0.66-1.25) mg/dL Glucose (74-99) mg/dL POC Glucose (mg/dL) 182 H (75-99) mg/dL Total Protein (6.3-8.2) g/dL Albumin (3.5-5.0) g/dL Microbiology - Last 24 Hours (Table) 01/01/17 23:50 Gram Stain - Preliminary Foot - Right Wound Culture - Preliminary Gram Neg Bacilli Assessment and Plan Plan: 1. Diabetic ulcer of the right foot and second toe: Patient seen by infectious disease they've cleared away some of the blister tissue. Adjusted antibiotics to Fortaz and daptomycin. Zosyn was discontinued. Patient evaluated by vascular surgery and scheduled for further vascular testing today. There is discussion about possible amputation of the second toe Continue with current management awaiting angioplasty by Dr. Mchugh and subsequent amputation of the toe by Dr. Dugan 2. Penis ulcer secondary to a coffee burn. Infectious disease consulted. Continue IV antibiotics. 3. Chronic kidney disease stage IV with history of right kidney transplant secondary to renal failure from his diabetes mellitus. Patient is on peritoneal dialysis. Nephrology will be consulted 4. Diabetes mellitus type 2: Uses sliding scale coverage at home. Place patient on sliding scale coverage. Hemoglobin A1c on last admission 4.7 5. Chronic atrial fibrillation: Anticoagulated with Coumadin. Check PT/INR. Hold Coumadin for possible amputation of the toe 6. History of peripheral vascular disease secondary to his diabetes mellitus and had required a left below the knee amputation 7. Chronic systolic CHF: No evidence of exacerbation. Echo from September 2016 shows an EF of 45-50% 8. Recent hospitalization with pneumonia and CHF exacerbation. Symptoms improved 9. Anemia of chronic kidney disease with iron deficiency anemia. Continue ferrous sulfate 10. History of coronary artery disease with previous coronary artery bypass graft 11. Severe protein calorie malnutrition. Patient refuses Glucerna shakes
[2017-01-03] MEDS: SODIUM CHLORIDE 0.9% 1,000 ML IV SCH (14:18)
[2017-01-03 16:40] LABS: Glucose,Whole Blood 260 mg/dL (75-99)
[2017-01-03] MEDS: WARFARIN 1 MG TAB PO SCH (17:24)
[2017-01-03 20:37] LABS: Glucose,Whole Blood 192 mg/dL (75-99)
[2017-01-03] MEDS: ASPIRIN 81 MG CHEW PO SCH (21:58)
[2017-01-03] MEDS: DAPTOmycin 500 MG in SODIUM CHLORIDE 0.9% 50 ML IV SCH (22:01)
[2017-01-03] MEDS: MIDODRINE 5 MG TAB PO PRN (22:41)
[2017-01-04 00:17] LABS: Glucose,Whole Blood 59 mg/dL (75-99)
[2017-01-04 00:27] LABS: Glucose,Whole Blood 76 mg/dL (75-99)
[2017-01-04] MEDS: TEMAZEPAM 15 MG CAP PO SCH (00:29)
[2017-01-04 03:14] LABS: Glucose,Whole Blood 159 mg/dL (75-99)
[2017-01-04] MEDS: DIALYSIS (PERIT 2.5%) 2,000 ML 50 G/2,000 ML BAG INTRAPERIT SCH ×3 (05:29→18:14)
[2017-01-04 05:35] LABS: Glucose,Whole Blood 117 mg/dL (75-99)
[2017-01-04 06:44] LABS: Basophils % (A) 1 %; CH 29.1; CHCM 28.5; Eosinophils % (A) 0 %; HCT 40.4 % (39.0-53.0); HDW 2.88; HGB 11.5 gm/dL (13.0-17.5); Hypochromasia Marked; Luc # (Auto) 0.16; Luc % (Auto) 2; Lymphocytes # (A) 1.5 k/uL (1.0-4.8); Lymphocytes % (A) 21 %; MCH 29.3 pg (25.0-35.0); MCHC 28.6 g/dL (31.0-37.0); MCV 102.4 fL (80.0-100.0); Macrocytosis Slight; Mean Platelet Volume 8.4; Monocytes # (A) 0.5 k/uL (0-1.0); Monocytes % (A) 7 %; Neutrophils # (A) 4.8 k/uL (1.3-7.7); Neutrophils % (A) 69 %; RBC 3.94 m/uL (4.30-5.90); RDW 15.5 % (11.5-15.5); WBC (Perox) 6.91
[2017-01-04 06:46] LABS: Prothrombin Time 10.2 sec (9.0-12.0)
[2017-01-04 06:50] LABS: Calcium 8.7 mg/dL (8.4-10.2); Potassium 4.3 mmol/L (3.5-5.1); Total Bilirubin 0.3 mg/dL (0.2-1.3); Total Protein 4.8 g/dL (6.3-8.2)
[2017-01-04] MEDS: INSULIN LISPRO (humaLOG) 300 UNIT/3 ML VIAL SQ SCH ×4 (08:37→22:01)
[2017-01-04] MEDS: predniSONE 5 MG TAB PO SCH (08:48)
[2017-01-04] MEDS: CHOLECALCIFEROL 1,000 UNIT TAB PO SCH ×2 (08:48→22:00)
[2017-01-04] MEDS: FUROSEMIDE 20 MG TAB PO SCH ×3 (08:48→22:01)
[2017-01-04] MEDS: MYCOPHENOLATE SODIUM DR 180 MG TABLET.DR PO SCH (08:48)
[2017-01-04] MEDS: VIT A,C & E-LUTEIN-MINERALS 1 EACH TAB PO SCH (08:48)
[2017-01-04] MEDS: FOLIC ACID-VIT B COMPLEX-VIT C 1 CAP PO SCH (08:49)
[2017-01-04] MEDS: CALCITRIOL 0.25 MCG CAP PO SCH ×2 (08:49→21:59)
[2017-01-04] MEDS: MAGNESIUM OXIDE 400 MG TAB PO SCH (08:49)
[2017-01-04] MEDS: FERROUS SULFATE 325 MG TAB PO SCH ×2 (08:49→22:00)
[2017-01-04] MEDS: TACROLIMUS 1 MG CAP PO SCH ×2 (08:49→22:00)
[2017-01-04] MEDS: SODIUM BICARBONATE TAB 650 MG TAB PO SCH ×2 (08:49→22:00)
--- NOTE | 2017-01-04 09:31 | PN ---
Patient is seen for follow up for end stage renal disease. He is maintained on peritoneal dialysis. Patient is doing fairly well. He is scheduled by Dr. Araya for angioplasty of his right lower extremity. On examination today, blood pressure 137/53, heart rate 69 per minute. Patient is afebrile. HEART: S1/S2. LUNGS: Bilateral breath sounds are heard. ABDOMEN: Soft, nontender. LOWER EXTREMITIES: Show right foot currently wrapped. Patient has left BKA. LABS: Sodium 138, potassium 4.3. Hemoglobin 11.5. ASSESSMENT: 1. End stage renal disease maintained on peritoneal dialysis. Will change the exchanges to 1.5% solution alternating with 2.5. 2. Mild volume overload on admission, currently improved. 3. Right lower extremity ischemia, scheduled for angioplasty tomorrow. The patient was being considered for amputation down the road. 4. History of peripheral vascular disease status post left below knee amputation. PLAN: Change peritoneal dialysis exchanges to 1.5% solution alternating with 2.5%. MTDD
[2017-01-04 12:08] LABS: Glucose,Whole Blood 183 mg/dL (75-99)
--- NOTE | 2017-01-04 12:40 | P.PN ---
Subjective This is a 61-year-old male with a known past medical history of chronic renal failure with right kidney transplant on peritoneal dialysis. Also history of congestive heart failure, diabetes mellitus type 2, coronary artery disease with previous coronary artery bypass grafting, atrial fibrillation in which he is on Coumadin, peripheral vascular disease secondary to his diabetes mellitus and has required a left below the knee amputation, DVT of the lower extremity and has had [place] filter placed, hypertension and hyperlipidemia. Patient noted discoloration an ulcer on his second toe of his right foot 2 days ago. He went to see Dr. Mosquera as soon as he noticed changes yesterday. Patient initially had a blister on the toe. The toe has now become gallardo and black in color. Patient has no sensation in his feet due to his diabetes. There is also some sloughing white tissue on the pad of his foot. He was started on Keflex And referred to see Dr. Dugan. Patient was able to get into Dr. Dugan's office today. Patient was evaluated by Dr. Dugan and told to grow go directly to the hospital and likely that he'll need an amputation on that second toe. Patient has had previous amputations on the right great toe. Patient reports no history of MRSA. He has been admitted to the hospital will be started on IV antibiotics in the form of IV Zosyn. Vascular surgery and infectious disease will be consulted. Nephrology will also be consulted due to patient's end-stage renal disease on peritoneal dialysis. Patient also reports a penis ulcer after spilling coffee on himself a few weeks ago. The ulcer is nonhealing. The ulcer is about 1 cm in size that is red around the edges with some granulation tissue. Patient reports that it is painful. Again will consult infectious disease and cover with IV antibiotics. Patient denies any fever, chills, sweats. Denies any nausea or vomiting. Denies any bowel movement changes or urinary symptoms. He does report improvement in his cough. He was recently hospitalized on December 18 and treated for pneumonia and CHF exacerbation. He did report still having some right-sided rib pain and nephrology had ordered a CAT scan of the chest and abdomen without contrast on December 29. It showed no significant new or acute findings. 01/02/2017 patient was seen by infectious disease they have changed antibiotics to Fortaz and daptomycin. Zosyn was discontinued. Vascular surgery has ordered further vascular testing to be done today. Patient has no sensation in that foot. Dr. Nino did clean up the area around the foot and toe. Patient denies any chest pain, shortness of breath, nausea or vomiting. He reports having regular bowel movements. Denies any difficulty urinating. On 01/03/2017 patient is alert and oriented denies any pain or discomfort at this time he is undergoing peritoneal dialysis. Case was discussed was Dr. Dugan. Patient has significant peripheral vascular disease on angiogram, consultation was requested from Dr Iglesias for angioplasty, patient will also require toe amputation which will be done later. He continues to be on Zosyn and daptomycin per Dr. Nino's recommendation, he is requesting changing his diet from diabetic diet to regular diet, otherwise he has no complaints. On 01/04/2017 patient is alert and oriented denies any pain or discomfort at this time denies any nausea or vomiting no abdominal pain no diarrhea or constipation continue was current IV antibiotic plan is for angioplasty with Dr. Iglesias tomorrow Objective - Vital Signs Vital signs: Vital Signs Temp 98.1 F 01/04/17 08:56 Pulse 70 01/04/17 08:56 Resp 18 01/04/17 08:56 BP 137/53 01/04/17 08:56 Pulse Ox 98 01/04/17 08:56 Intake & Output 01/03/17 01/04/17 01/04/17 18:59 06:59 18:59 Intake Total 380 100 250 Output Total 1 Balance 380 99 250 Weight 77.5 kg Intake: IV 100 DAPTOmycin 500 mg In 100 Sodium Chloride 0.9% 50 ml @ 100 mls/hr IV Q24H [facility] Rx#:[id number] Oral 380 250 Output: Urine 1 Other: # Voids 100 - Exam In general patient is alert and oriented 3 HEENT head normocephalic and atraumatic Neck is supple no JVD no goiter no lymphadenopathy Cardiac exam reveals regular heart sounds no gallops no murmurs Chest exam reveals scattered crackles in both lung daniels no wheezing Abdomen is soft nontender no organomegaly Extremity exam reveals below knee amputation on the left, beaked toe amputation on the right, with significant discoloration in the middle toe with an ulcer beneath the middle toe. - Labs CBC & Chem 7: 01/04/17 06:15 01/04/17 06:15 Labs: Abnormal Lab Results - Last 24 Hours (Table) 01/03/17 01/03/17 01/04/17 Range/Units 16:31 20:36 00:06 RBC (4.30-5.90) m/uL Hgb (13.0-17.5) gm/dL MCV (80.0-100.0) fL MCHC (31.0-37.0) g/dL BUN (9-20) mg/dL Creatinine (0.66-1.25) mg/dL Glucose (74-99) mg/dL POC Glucose (mg/dL) 260 H 192 H 59 L (75-99) mg/dL Total Protein (6.3-8.2) g/dL Albumin (3.5-5.0) g/dL 01/04/17 01/04/17 01/04/17 Range/Units 03:12 05:34 06:15 RBC 3.94 L (4.30-5.90) m/uL Hgb 11.5 L (13.0-17.5) gm/dL MCV 102.4 H (80.0-100.0) fL MCHC 28.6 L (31.0-37.0) g/dL BUN (9-20) mg/dL Creatinine (0.66-1.25) mg/dL Glucose (74-99) mg/dL POC Glucose (mg/dL) 159 H 117 H (75-99) mg/dL Total Protein (6.3-8.2) g/dL Albumin (3.5-5.0) g/dL 01/04/17 01/04/17 Range/Units 06:15 11:52 RBC (4.30-5.90) m/uL Hgb (13.0-17.5) gm/dL MCV (80.0-100.0) fL MCHC (31.0-37.0) g/dL BUN 32 H (9-20) mg/dL Creatinine 3.20 H (0.66-1.25) mg/dL Glucose 120 H (74-99) mg/dL POC Glucose (mg/dL) 183 H (75-99) mg/dL Total Protein 4.8 L (6.3-8.2) g/dL Albumin 2.4 L (3.5-5.0) g/dL Microbiology - Last 24 Hours (Table) 01/01/17 23:50 Gram Stain - Final Foot - Right Wound Culture - Final Enterobacter cloacae Assessment and Plan Plan: 1. Diabetic ulcer of the right foot and second toe: Patient seen by infectious disease they've cleared away some of the blister tissue. Adjusted antibiotics to Fortaz and daptomycin. Continue with current management awaiting angioplasty by Dr. Iglesias and subsequent amputation of the toe by Dr. Dugan 2. Penis ulcer secondary to a coffee burn. Infectious disease consulted. Continue IV antibiotics. 3. Chronic kidney disease stage IV with history of right kidney transplant secondary to renal failure from his diabetes mellitus. Patient is on peritoneal dialysis. Nephrology will be consulted 4. Diabetes mellitus type 2: Uses sliding scale coverage at home. Place patient on sliding scale coverage. Hemoglobin A1c on last admission 4.7 5. Chronic atrial fibrillation: Anticoagulated with Coumadin. Check PT/INR. Holding Coumadin for possible amputation of the toe 6. History of peripheral vascular disease secondary to his diabetes mellitus and had required a left below the knee amputation 7. Chronic systolic CHF: No evidence of exacerbation. Echo from September 2016 shows an EF of 45-50% 8. Recent hospitalization with pneumonia and CHF exacerbation. Symptoms improved 9. Anemia of chronic kidney disease with iron deficiency anemia. Continue ferrous sulfate 10. History of coronary artery disease with previous coronary artery bypass graft 11. Severe protein calorie malnutrition. Patient refuses Glucerna shakes
[2017-01-04] MEDS ORDERED: ENOXAPARIN 40 MG/0.4 ML SYRINGE SQ STA (12:42)
[2017-01-04 16:51] LABS: Glucose,Whole Blood 203 mg/dL (75-99)
[2017-01-04] MEDS: SODIUM CHLORIDE 0.9% 1,000 ML IV SCH (17:38)
[2017-01-04 20:44] LABS: Glucose,Whole Blood 254 mg/dL (75-99)
[2017-01-04] MEDS: ASPIRIN 81 MG CHEW PO SCH (21:59)
[2017-01-04] MEDS: DAPTOmycin 500 MG in SODIUM CHLORIDE 0.9% 50 ML IV SCH (22:01)
[2017-01-04] MEDS: MIDODRINE 5 MG TAB PO PRN (23:12)
[2017-01-05] MEDS: DIALYSIS (PERIT 2.5%) 2,000 ML 50 G/2,000 ML BAG INTRAPERIT SCH ×3 (00:01→17:34)
[2017-01-05 00:24] LABS: Glucose,Whole Blood 62 mg/dL (75-99)
[2017-01-05] MEDS: TEMAZEPAM 15 MG CAP PO SCH (00:25)
[2017-01-05 03:19] LABS: Glucose,Whole Blood 118 mg/dL (75-99)
[2017-01-05 06:27] LABS: Glucose,Whole Blood 116 mg/dL (75-99)
[2017-01-05] MEDS: INSULIN LISPRO (humaLOG) 300 UNIT/3 ML VIAL SQ SCH ×4 (06:37→21:30)
[2017-01-05] MEDS: SODIUM BICARBONATE TAB 650 MG TAB PO SCH ×2 (08:03→20:55)
[2017-01-05] MEDS: predniSONE 5 MG TAB PO SCH (08:03)
[2017-01-05] MEDS: TACROLIMUS 1 MG CAP PO SCH ×2 (08:03→20:55)
[2017-01-05] MEDS: MYCOPHENOLATE SODIUM DR 180 MG TABLET.DR PO SCH (08:03)
[2017-01-05] MEDS: FOLIC ACID-VIT B COMPLEX-VIT C 1 CAP PO SCH (08:03)
[2017-01-05] MEDS: MAGNESIUM OXIDE 400 MG TAB PO SCH (08:04)
[2017-01-05] MEDS: FUROSEMIDE 20 MG TAB PO SCH ×3 (08:04→20:55)
[2017-01-05] MEDS: VIT A,C & E-LUTEIN-MINERALS 1 EACH TAB PO SCH (08:04)
[2017-01-05] MEDS: FERROUS SULFATE 325 MG TAB PO SCH ×2 (08:05→20:54)
[2017-01-05] MEDS: CALCITRIOL 0.25 MCG CAP PO SCH ×2 (08:05→20:54)
[2017-01-05] MEDS: CHOLECALCIFEROL 1,000 UNIT TAB PO SCH ×2 (08:05→20:54)
[2017-01-05 08:27] LABS: Calcium 8.9 mg/dL (8.4-10.2); Potassium 4.7 mmol/L (3.5-5.1)
--- NOTE | 2017-01-05 08:46 | P.PN ---
Subjective Patient is seen in follow-up for end-stage renal disease. He is maintained on peritoneal dialysis. Denies any chest pain or shortness of breath. No issues with peritoneal dialysis exchanges. Denies any obvious drainage from the right toe. Does have pain in the right foot. No vomiting or diarrhea. Oral intake is good. Hemodynamically stable. Vital signs are stable. General: The patient appeared well nourished and normally developed. HEENT: Head exam is unremarkable. Neck is without jugular venous distension. LUNGS: Lungs are clear to auscultation and percussion. Breath sounds decreased. HEART: Rate and Rhythm are regular. First and second heart sounds normal. No murmurs, rubs or gallops. ABDOMEN: Abdominal exam reveals normal bowel sounds. Non-tender and non- distended. No evidence of peritonitis. EXTREMITITES: No clubbing, cyanosis, or edema. Left [id number] amputation noted. No obvious drainage from the right foot. Objective - Vital Signs Vital signs: Vital Signs Temp 97.8 F 01/05/17 08:00 Pulse 83 01/05/17 08:00 Resp 18 01/05/17 08:00 BP 128/67 01/05/17 08:00 Pulse Ox 18 L 01/05/17 05:27 Intake & Output 01/04/17 01/05/17 01/05/17 18:59 06:59 18:59 Intake Total 1150 220 Output Total 650 Balance 1150 -650 220 Weight 76.5 kg Intake: Oral 1150 220 Output: Urine 650 Other: # Voids 1 - Labs CBC & Chem 7: 01/04/17 06:15 01/04/17 06:15 Labs: Abnormal Lab Results - Last 24 Hours (Table) 01/04/17 01/04/17 01/04/17 Range/Units 11:52 16:34 20:41 POC Glucose (mg/dL) 183 H 203 H 254 H (75-99) mg/dL 01/05/17 01/05/17 01/05/17 Range/Units 00:22 02:59 06:25 POC Glucose (mg/dL) 62 L 118 H 116 H (75-99) mg/dL Microbiology - Last 24 Hours (Table) 01/01/17 23:50 Gram Stain - Final Foot - Right Wound Culture - Final Enterobacter cloacae Assessment and Plan Plan: Assessment: #1. End-stage renal disease maintained on peritoneal dialysis. #2. Right foot second toe gangrene. #3. History of donor allograft from [facility] in 2010. #4. Hypertension with chronic kidney disease. Controlled. #5. Anemia of chronic kidney disease. Hemoglobin at goal. #6. Peripheral vascular disease status post left [id number] amputation. #7. Insulin dependent diabetes mellitus. Plan: Change peritoneal dialysis exchanges alternating between 1.5% and 2.5%. Continue with current dose of Myfortic, prednisone and Prograf. Being weaned as an outpatient. Scheduled for right lower extremity angioplasty either today or tomorrow. Also being followed by vascular surgery and infectious disease.
[2017-01-05 08:50] LABS: Basophils % (A) 0 %; CH 29.3; CHCM 29.4; Eosinophils % (A) 0 %; HCT 38.8 % (39.0-53.0); HDW 2.93; HGB 11.5 gm/dL (13.0-17.5); Hypochromasia Marked; Luc # (Auto) 0.12; Luc % (Auto) 2; Lymphocytes # (A) 0.6 k/uL (1.0-4.8); Lymphocytes % (A) 10 %; MCH 29.5 pg (25.0-35.0); MCHC 29.6 g/dL (31.0-37.0); MCV 99.7 fL (80.0-100.0); Macrocytosis Slight; Mean Platelet Volume 8.6; Monocytes # (A) 0.4 k/uL (0-1.0); Monocytes % (A) 6 %; Neutrophils # (A) 4.7 k/uL (1.3-7.7); Neutrophils % (A) 81 %; RDW 15.6 % (11.5-15.5); WBC 5.8 k/uL (3.8-10.6); WBC (Perox) 6.48
[2017-01-05] MEDS ORDERED: Potassium Replacement Protocol 1 EACH MISC MISCELLANE PRN (09:55)
[2017-01-05] MEDS ORDERED: Magnesium Replacement Protocol 1 EACH MISC MISCELLANE PRN (09:55)
--- NOTE | 2017-01-05 11:32 | P.PN ---
Subjective Patient is doing well today. No events overnight. Objective - Vital Signs Vital signs: Vital Signs Temp 97.8 F 01/05/17 08:00 Pulse 83 01/05/17 08:00 Resp 18 01/05/17 08:00 BP 128/67 01/05/17 08:00 Pulse Ox 18 L 01/05/17 05:27 Intake & Output 01/04/17 01/05/17 01/05/17 18:59 06:59 18:59 Intake Total 1150 980 Output Total 650 Balance 1150 -650 980 Weight 76.5 kg Intake: IV 100 DAPTOmycin 500 mg In 100 Sodium Chloride 0.9% 50 ml @ 100 mls/hr IV Q24H [facility] Rx#:[id number] Intake, IV Titration 60 Amount Sodium Chloride 0.9% 1, 60 000 ml @ 25 mls/hr IV . Q24H [facility] Rx#:[id number] Oral 1150 820 Output: Urine 650 Other: # Voids 1 - Exam General: The patient is awake and alert, in no distress Eye: there is normal conjunctiva bilaterally. Neck: The neck is supple, there is no JVD. Cardiovascular: Normal S1-S2, no S3-S4, no murmurs. 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 The right foot wrapped with dry/clean dressing. Neurological:. Speech is normal. Skin: Skin is warm and dry - Labs CBC & Chem 7: 01/05/17 07:49 01/05/17 07:49 Labs: Abnormal Lab Results - Last 24 Hours (Table) 01/04/17 01/04/17 01/04/17 Range/Units 11:52 16:34 20:41 RBC (4.30-5.90) m/uL Hgb (13.0-17.5) gm/dL Hct (39.0-53.0) % MCHC (31.0-37.0) g/dL RDW (11.5-15.5) % Lymphocytes # (1.0-4.8) k/uL Sodium (137-145) mmol/L BUN (9-20) mg/dL Creatinine (0.66-1.25) mg/dL Glucose (74-99) mg/dL POC Glucose (mg/dL) 183 H 203 H 254 H (75-99) mg/dL 01/05/17 01/05/17 01/05/17 Range/Units 00:22 02:59 06:25 RBC (4.30-5.90) m/uL Hgb (13.0-17.5) gm/dL Hct (39.0-53.0) % MCHC (31.0-37.0) g/dL RDW (11.5-15.5) % Lymphocytes # (1.0-4.8) k/uL Sodium (137-145) mmol/L BUN (9-20) mg/dL Creatinine (0.66-1.25) mg/dL Glucose (74-99) mg/dL POC Glucose (mg/dL) 62 L 118 H 116 H (75-99) mg/dL 01/05/17 01/05/17 Range/Units 07:49 07:49 RBC 3.90 L (4.30-5.90) m/uL Hgb 11.5 L (13.0-17.5) gm/dL Hct 38.8 L (39.0-53.0) % MCHC 29.6 L (31.0-37.0) g/dL RDW 15.6 H (11.5-15.5) % Lymphocytes # 0.6 L (1.0-4.8) k/uL Sodium 136 L (137-145) mmol/L BUN 33 H (9-20) mg/dL Creatinine 3.42 H (0.66-1.25) mg/dL Glucose 181 H (74-99) mg/dL POC Glucose (mg/dL) (75-99) mg/dL Microbiology - Last 24 Hours (Table) 01/01/17 23:50 Gram Stain - Final Foot - Right Wound Culture - Final Enterobacter cloacae Assessment and Plan Plan: 1. Diabetic ulcer of the right foot and second toe: Patient seen by infectious disease they've cleared away some of the blister tissue. Adjusted antibiotics to Fortaz and daptomycin. awaiting angioplasty by Dr. Iglesias and subsequent amputation of the toe by Dr. Dugan 2. Penis ulcer secondary to a coffee burn. 3. Chronic kidney disease stage V with history of right kidney transplant secondary to renal failure from his diabetes mellitus. Patient is on peritoneal dialysis. Nephrology will be consulted 4. Diabetes mellitus type 2: Uses sliding scale coverage at home. Place patient on sliding scale coverage. Hemoglobin A1c on last admission 4.7 5. Chronic atrial fibrillation: Anticoagulated with Coumadin. Check PT/INR. Holding Coumadin for possible amputation of the toe 6. History of peripheral vascular disease secondary to his diabetes mellitus and had required a left below the knee amputation 7. Chronic systolic CHF: No evidence of exacerbation. Echo from September 2016 shows an EF of 45-50% 8. Recent hospitalization with pneumonia and CHF exacerbation. Symptoms improved 9. Anemia of chronic kidney disease with iron deficiency anemia. Continue ferrous sulfate 10. History of coronary artery disease with previous coronary artery bypass graft 11. Severe protein calorie malnutrition. Patient refuses Glucerna shakes
[2017-01-05 11:41] LABS: Glucose,Whole Blood 185 mg/dL (75-99)
[2017-01-05] MEDS: DIALYSIS (PERIT 1.5%) 2,000 ML 30 G/2,000 ML BAG INTRAPERIT SCH (12:28)
[2017-01-05] MEDS: SODIUM CHLORIDE 0.9% 1,000 ML IV SCH (14:59)
[2017-01-05 16:45] LABS: Glucose,Whole Blood 241 mg/dL (75-99)
--- NOTE | 2017-01-05 18:50 | P.PN ---
Subjective Principal diagnosis: Diabetic foot ulcer Jasbir 61-year-old male who has a history of diabetes mellitus type 2 with many complications that includes end-stage renal disease. He did have a renal transplantation but that has failed. And now undergoes chronic and which were approaching hemodialysis for the renal failure. 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 The patient relates that he is doing modestly well as of late. He did have foot evaluation some toenail cutting performed. Now 3 weeks later he developed evidence of a blister onto his right foot associated with erythema and swelling to the residual second toe. With his neuropathy is not having pain but is very concerned given the left [id number] amputation for limb salvage. Patient denies any known trauma but patient was recently hospitalized. At that point and there was concerns about potential for a pneumonia. He was treated with antibiotics with Augmentin. Warm [place] the patient developed worsening of his congestive heart failure and volume overload. Apparently he had nearly a 40 pound water weight gain. During his hospital stay he received diuretic therapy and intensive dialysis therapy. He now feels considerably better after that hospital stay and his ongoing dialysis at home. He is not having high-grade fevers, chills or rigors. Was taken to the catheterization lab for the peripheral vascular study. Attempt for distal procedures tomorrow with amputation of toes after Objective - Vital Signs Vital signs: Vital Signs Temp 97.6 F 01/05/17 15:52 Pulse 74 01/05/17 17:38 Resp 16 01/05/17 15:52 BP 132/50 01/05/17 17:38 Pulse Ox 97 01/05/17 15:52 Intake & Output 01/04/17 01/05/17 01/05/17 18:59 06:59 18:59 Intake Total 1150 1500 Output Total 650 Balance 1150 -650 1500 Weight 76.5 kg Intake: IV 100 DAPTOmycin 500 mg In 100 Sodium Chloride 0.9% 50 ml @ 100 mls/hr IV Q24H [facility] Rx#:[id number] Intake, IV Titration 220 Amount Sodium Chloride 0.9% 1, 220 000 ml @ 25 mls/hr IV . Q24H [facility] Rx#:[id number] Oral 1150 1180 Output: Urine 650 Other: # Voids 1 - Exam Jasbir 61-year-old male presents to Hospital with significant change to his right foot. HEENT: Anicteric conjunctiva are pink and moist nasal mucosa grossly intact without significant lesions, there is no thrush. Neck: The neck is supple without significant lymphadenopathy or thyromegaly. Lungs: Good bilateral air entry without significant crackles or wheezing. There is no significant bronchial sounds. There is no egophony or dullness. Heart: Irregular with an audible S1 and S2. No S3 soft S4 2/6 systolic murmur left sternal border is holosystolic. Abdomen: Positive bowel sounds soft and nontender without palpable masses or organomegaly. There was no guarding or rebound. Extremities: The prior shunt to the left arm is only minimal thrill and apparently is not functional for hemodialysis. The left lower extremity below the knee amputation residual limb is in good order. There is no erythema or crepitance or fluctuance. 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 The right lower extremity shows evidence of the great toe amputation. This is well-healed. Now the toe has dry gangreen and is with erythema. Neuro: no new acute changes - Labs CBC & Chem 7: 01/05/17 07:49 01/05/17 07:49 Labs: Abnormal Lab Results - Last 24 Hours (Table) 01/04/17 01/05/17 01/05/17 Range/Units 20:41 00:22 02:59 RBC (4.30-5.90) m/uL Hgb (13.0-17.5) gm/dL Hct (39.0-53.0) % MCHC (31.0-37.0) g/dL RDW (11.5-15.5) % Lymphocytes # (1.0-4.8) k/uL Sodium (137-145) mmol/L BUN (9-20) mg/dL Creatinine (0.66-1.25) mg/dL Glucose (74-99) mg/dL POC Glucose (mg/dL) 254 H 62 L 118 H (75-99) mg/dL 01/05/17 01/05/17 01/05/17 Range/Units 06:25 07:49 07:49 RBC 3.90 L (4.30-5.90) m/uL Hgb 11.5 L (13.0-17.5) gm/dL Hct 38.8 L (39.0-53.0) % MCHC 29.6 L (31.0-37.0) g/dL RDW 15.6 H (11.5-15.5) % Lymphocytes # 0.6 L (1.0-4.8) k/uL Sodium 136 L (137-145) mmol/L BUN 33 H (9-20) mg/dL Creatinine 3.42 H (0.66-1.25) mg/dL Glucose 181 H (74-99) mg/dL POC Glucose (mg/dL) 116 H (75-99) mg/dL 01/05/17 01/05/17 Range/Units 11:38 16:44 RBC (4.30-5.90) m/uL Hgb (13.0-17.5) gm/dL Hct (39.0-53.0) % MCHC (31.0-37.0) g/dL RDW (11.5-15.5) % Lymphocytes # (1.0-4.8) k/uL Sodium (137-145) mmol/L BUN (9-20) mg/dL Creatinine (0.66-1.25) mg/dL Glucose (74-99) mg/dL POC Glucose (mg/dL) 185 H 241 H (75-99) mg/dL Microbiology - Last 24 Hours (Table) 01/01/17 23:50 Gram Stain - Final Foot - Right Wound Culture - Final Enterobacter cloacae Staphylococcus lugdunenisis Assessment and Plan (1) Diabetic ulcer of right foot associated with diabetes mellitus due to underlying condition, with fat layer exposed Status: Acute (2) End-stage renal disease on peritoneal dialysis Status: Acute (3) Diabetes mellitus type 2, controlled, with complications Status: Acute
[2017-01-05] MEDS: ASPIRIN 81 MG CHEW PO SCH (20:53)
[2017-01-05 21:28] LABS: Glucose,Whole Blood 249 mg/dL (75-99)
[2017-01-06] MEDS: TEMAZEPAM 15 MG CAP PO SCH ×2 (00:31→21:50)
[2017-01-06 05:54] LABS: Glucose,Whole Blood 118 mg/dL (75-99)
[2017-01-06 06:58] LABS: Basophils # (A) 0.1 k/uL (0-0.2); Basophils % (A) 1 %; CH 28.7; CHCM 28.5; Eosinophils # (A) 0.1 k/uL (0-0.7); Eosinophils % (A) 1 %; HCT 42.4 % (39.0-53.0); HGB 12.3 gm/dL (13.0-17.5); Hypochromasia Marked; Luc # (Auto) 0.21; Luc % (Auto) 2; Lymphocytes # (A) 2.1 k/uL (1.0-4.8); Lymphocytes % (A) 24 %; MCH 29.2 pg (25.0-35.0); MCV 100.8 fL (80.0-100.0); Macrocytosis Slight; Mean Platelet Volume 7.9; Monocytes # (A) 0.6 k/uL (0-1.0); Monocytes % (A) 7 %; Neutrophils # (A) 5.9 k/uL (1.3-7.7); Neutrophils % (A) 66 %; RBC 4.21 m/uL (4.30-5.90); WBC 8.9 k/uL (3.8-10.6); WBC (Perox) 8.97
[2017-01-06 07:13] LABS: Calcium 9.1 mg/dL (8.4-10.2); Magnesium 2.3 mg/dL (1.6-2.3); Potassium 4.8 mmol/L (3.5-5.1)
[2017-01-06] MEDS: CALCITRIOL 0.25 MCG CAP PO SCH ×2 (07:30→21:38)
[2017-01-06] MEDS: INSULIN LISPRO (humaLOG) 300 UNIT/3 ML VIAL SQ SCH ×4 (07:30→21:50)
[2017-01-06] MEDS: MAGNESIUM OXIDE 400 MG TAB PO SCH (07:31)
[2017-01-06] MEDS: FUROSEMIDE 20 MG TAB PO SCH ×3 (07:31→21:51)
[2017-01-06] MEDS: MYCOPHENOLATE SODIUM DR 180 MG TABLET.DR PO SCH (07:32)
[2017-01-06] MEDS: CHOLECALCIFEROL 1,000 UNIT TAB PO SCH ×2 (07:32→21:38)
[2017-01-06] MEDS: SODIUM BICARBONATE TAB 650 MG TAB PO SCH ×2 (07:34→21:39)
[2017-01-06] MEDS: predniSONE 5 MG TAB PO SCH (07:34)
[2017-01-06] MEDS: TACROLIMUS 1 MG CAP PO SCH ×2 (07:34→21:39)
[2017-01-06] MEDS: FERROUS SULFATE 325 MG TAB PO SCH ×2 (07:34→21:39)
[2017-01-06] MEDS: VIT A,C & E-LUTEIN-MINERALS 1 EACH TAB PO SCH (07:35)
[2017-01-06] MEDS: FOLIC ACID-VIT B COMPLEX-VIT C 1 CAP PO SCH (07:35)
[2017-01-06] MEDS: DIALYSIS (PERIT 1.5%) 2,000 ML 30 G/2,000 ML BAG INTRAPERIT SCH ×3 (07:40→14:38)
--- NOTE | 2017-01-06 10:18 | PN ---
The patient is seen for follow-up for end stage renal disease. He is currently lying comfortable in bed. He is not in any acute distress. He is status post intervention on his right lower extremity. The operative reports are not available yet. On examination, blood pressure is 132/74. Heart rate 80 per minute. The patient is afebrile. Examination of the heart S1, S2. Examination of the lungs bilateral breath sounds are heard. Abdomen is soft, nontender. Examination of the lower extremities shows right foot currently wrapped. The patient has left BKA. Labs show sodium 136. Potassium 4.8. hemoglobin 12.3 gmDL. ASSESSMENT: 1. End stage renal disease currently maintained on peritoneal dialysis and doing well. 2. Right foot ulcer and gangrene status post intervention on his right lower extremity. Being followed by vascular. 3. Status post donor transplant currently maintained on weaning, scheduled off immunosuppression and now no peritoneal dialysis. 4. Chronic kidney disease bone mineral disorder maintained on Calcitriol which we can continue for now. PLAN: Continue current PD exchanges. No changes from nephrology standpoint. EVE
[2017-01-06] MEDS ORDERED: MIDODRINE 5 MG TAB PO PRN (11:07)
[2017-01-06] MEDS: LIDOCAINE 2% INJ 20 MG/ML SQ ONE ×2 (11:47→13:36)
[2017-01-06] MEDS ORDERED: MIDAZOLAM 2 MG/2 ML VIAL IV ONE ×2 (11:50→11:59)
[2017-01-06] MEDS ORDERED: CLOPIDOGREL 75 MG TAB PO ONE (12:26)
[2017-01-06] MEDS: NITROGLYCERIN 1000MCG/10ML SYRINGE INTRAARTER ONE ×3 (12:44→13:13)
[2017-01-06] MEDS ORDERED: fentaNYL (PF) 50 MCG/ML 2 ML AMP IV ONE (12:45)
[2017-01-06] MEDS ORDERED: niCARdipine Syringe (1,000 mcg/10 mL) INTRAARTER ONE (13:13)
[2017-01-06] MEDS ORDERED: IV FLUID CONTINUATION 1,000 ML IV ONE (13:26)
[2017-01-06] MEDS ORDERED: IODIXANOL 320 MG/ML 100 ML INTRAARTER ONE (13:32)
--- NOTE | 2017-01-06 13:32 | P.PN ---
Subjective No issues overnight Objective - Vital Signs Vital signs: Vital Signs Temp 97.0 F L 01/06/17 08:00 Pulse 80 01/06/17 11:55 Resp 18 01/06/17 11:55 BP 92/58 01/06/17 11:55 Pulse Ox 97 01/06/17 11:55 Intake & Output 01/05/17 01/06/17 01/06/17 18:59 06:59 18:59 Intake Total 1500 260 300 Output Total 500 Balance 1500 -240 300 Weight 75 kg Intake: IV 100 300 DAPTOmycin 500 mg In 100 Sodium Chloride 0.9% 50 ml @ 100 mls/hr IV Q24H [facility] Rx#:[id number] Intake, IV Titration 220 260 Amount Sodium Chloride 0.9% 1, 220 260 000 ml @ 25 mls/hr IV . Q24H [facility] Rx#:[id number] Oral 1180 0 Output: Urine 500 Other: Voiding Method Toilet Toilet Urinal Urinal # Voids 1 - Labs CBC & Chem 7: 01/06/17 06:36 01/06/17 06:36 Labs: Abnormal Lab Results - Last 24 Hours (Table) 01/05/17 01/05/17 01/06/17 Range/Units 16:44 21:27 05:52 RBC (4.30-5.90) m/uL Hgb (13.0-17.5) gm/dL MCV (80.0-100.0) fL MCHC (31.0-37.0) g/dL Plt Count (150-450) k/uL Sodium (137-145) mmol/L Carbon Dioxide (22-30) mmol/L BUN (9-20) mg/dL Creatinine (0.66-1.25) mg/dL Glucose (74-99) mg/dL POC Glucose (mg/dL) 241 H 249 H 118 H (75-99) mg/dL 01/06/17 01/06/17 Range/Units 06:36 06:36 RBC 4.21 L (4.30-5.90) m/uL Hgb 12.3 L (13.0-17.5) gm/dL MCV 100.8 H (80.0-100.0) fL MCHC 29.0 L (31.0-37.0) g/dL Plt Count 459 H (150-450) k/uL Sodium 136 L (137-145) mmol/L Carbon Dioxide 20 L (22-30) mmol/L BUN 33 H (9-20) mg/dL Creatinine 3.41 H (0.66-1.25) mg/dL Glucose 120 H (74-99) mg/dL POC Glucose (mg/dL) (75-99) mg/dL Microbiology - Last 24 Hours (Table) 01/01/17 23:50 Gram Stain - Final Foot - Right Wound Culture - Final Enterobacter cloacae Staphylococcus lugdunenisis Assessment and Plan Plan: 1. Diabetic ulcer of the right foot and second toe: Patient seen by infectious disease they've cleared away some of the blister tissue. Adjusted antibiotics to Fortaz and daptomycin. awaiting angioplasty by Dr. Iglesias today and subsequent amputation of the toe by Dr. Dugan 2. Penis ulcer secondary to a coffee burn. 3. Chronic kidney disease stage V with history of right kidney transplant secondary to renal failure from his diabetes mellitus. Patient is on peritoneal dialysis. Nephrology will be consulted 4. Diabetes mellitus type 2: Uses sliding scale coverage at home. Place patient on sliding scale coverage. Hemoglobin A1c on last admission 4.7 5. Chronic atrial fibrillation: Anticoagulated with Coumadin. Check PT/INR. Holding Coumadin for possible amputation of the toe 6. History of peripheral vascular disease secondary to his diabetes mellitus and had required a left below the knee amputation 7. Chronic systolic CHF: No evidence of exacerbation. Echo from September 2016 shows an EF of 45-50% 8. Recent hospitalization with pneumonia and CHF exacerbation. Symptoms improved 9. Anemia of chronic kidney disease with iron deficiency anemia. Continue ferrous sulfate 10. History of coronary artery disease with previous coronary artery bypass graft 11. Severe protein calorie malnutrition. Patient refuses Glucerna shakes
[2017-01-06] MEDS ORDERED: SODIUM CHLORIDE 0.9% 1,000 ML IV SCH (13:45)
[2017-01-06] MEDS: MIDODRINE 5 MG TAB PO SCH (14:39)
[2017-01-06 15:07] LABS: Glucose,Whole Blood 107 mg/dL (75-99)
[2017-01-06] MEDS: SODIUM CHLORIDE 0.9% 1,000 ML IV SCH (16:13)
[2017-01-06] MEDS ORDERED: ATROPINE SULFATE 0.1 MG/ML 10ML SYRINGE ONE (16:41)
[2017-01-06 21:13] LABS: Glucose,Whole Blood 238 mg/dL (75-99)
[2017-01-06] MEDS: DIALYSIS (PERIT 2.5%) 2,000 ML 50 G/2,000 ML BAG INTRAPERIT SCH ×2 (21:21)
[2017-01-06] MEDS: ASPIRIN 81 MG CHEW PO SCH (21:38)
[2017-01-06] MEDS: DAPTOmycin 500 MG in SODIUM CHLORIDE 0.9% 50 ML IV SCH (21:39)
[2017-01-07] MEDS: DIALYSIS (PERIT 1.5%) 2,000 ML 30 G/2,000 ML BAG INTRAPERIT SCH ×2 (03:23→15:17)
[2017-01-07 06:42] LABS: Glucose,Whole Blood 98 mg/dL (75-99)
[2017-01-07 06:46] LABS: Basophils % (A) 0 %; CH 29.1; CHCM 29.4; Eosinophils % (A) 1 %; HCT 37.5 % (39.0-53.0); HDW 2.86; HGB 10.8 gm/dL (13.0-17.5); Hypochromasia Marked; Luc # (Auto) 0.11; Luc % (Auto) 2; Lymphocytes # (A) 0.9 k/uL (1.0-4.8); Lymphocytes % (A) 16 %; MCH 28.6 pg (25.0-35.0); MCHC 28.8 g/dL (31.0-37.0); MCV 99.3 fL (80.0-100.0); Macrocytosis Slight; Mean Platelet Volume 8.3; Monocytes # (A) 0.4 k/uL (0-1.0); Monocytes % (A) 7 %; Neutrophils # (A) 4.6 k/uL (1.3-7.7); Neutrophils % (A) 75 %; RBC 3.77 m/uL (4.30-5.90); RDW 15.6 % (11.5-15.5); WBC 6.1 k/uL (3.8-10.6); WBC (Perox) 6.25
[2017-01-07 07:06] LABS: Calcium 8.4 mg/dL (8.4-10.2); Magnesium 2.1 mg/dL (1.6-2.3)
[2017-01-07] MEDS: INSULIN LISPRO (humaLOG) 300 UNIT/3 ML VIAL SQ SCH ×4 (07:42→21:54)
[2017-01-07] MEDS: DIALYSIS (PERIT 2.5%) 2,000 ML 50 G/2,000 ML BAG INTRAPERIT SCH ×2 (09:02→21:20)
[2017-01-07] MEDS: MYCOPHENOLATE SODIUM DR 180 MG TABLET.DR PO SCH (09:21)
[2017-01-07] MEDS: VIT A,C & E-LUTEIN-MINERALS 1 EACH TAB PO SCH (09:21)
[2017-01-07] MEDS: MIDODRINE 5 MG TAB PO SCH (09:22)
[2017-01-07] MEDS: FOLIC ACID-VIT B COMPLEX-VIT C 1 CAP PO SCH (09:22)
[2017-01-07] MEDS: predniSONE 5 MG TAB PO SCH (09:22)
[2017-01-07] MEDS: MAGNESIUM OXIDE 400 MG TAB PO SCH (09:22)
[2017-01-07] MEDS: SODIUM BICARBONATE TAB 650 MG TAB PO SCH ×2 (09:22→21:54)
[2017-01-07] MEDS: CALCITRIOL 0.25 MCG CAP PO SCH ×2 (09:23→21:54)
[2017-01-07] MEDS: FUROSEMIDE 20 MG TAB PO SCH ×3 (09:23→21:55)
[2017-01-07] MEDS: CHOLECALCIFEROL 1,000 UNIT TAB PO SCH ×2 (09:23→21:54)
[2017-01-07] MEDS: TACROLIMUS 1 MG CAP PO SCH ×2 (09:23→21:54)
[2017-01-07] MEDS: FERROUS SULFATE 325 MG TAB PO SCH ×2 (09:23→21:54)
[2017-01-07] MEDS: CLOPIDOGREL 75 MG TAB PO SCH ×2 (09:27→18:37)
--- NOTE | 2017-01-07 10:17 | IR ---
Fluoroscopy HISTORY: Peripheral vascular occlusive disease 26.9 minutes fluoroscopy time supplied to the referring clinician. 1013 intraoperative C-arm images document the procedure. See dictated report from cardiology.
--- NOTE | 2017-01-07 11:00 | P.PN ---
Subjective Patient is doing well today. No events overnight. Objective - Vital Signs Vital signs: Vital Signs Temp 97.0 F L 01/07/17 08:00 Pulse 86 01/07/17 08:00 Resp 16 01/07/17 08:00 BP 85/31 01/07/17 08:00 Pulse Ox 96 01/07/17 08:00 Intake & Output 01/06/17 01/07/17 01/07/17 18:59 06:59 18:59 Intake Total 500 250 240 Output Total 400 Balance 500 -150 240 Weight 75 kg Intake: IV 300 Intake, IV Titration 200 50 Amount DAPTOmycin 500 mg In 50 Sodium Chloride 0.9% 50 ml @ 100 mls/hr IV Q48H [facility] Rx#:[id number] Sodium Chloride 0.9% 1, 200 000 ml @ 50 mls/hr IV . Q20H [facility] Rx#:[id number] Oral 0 200 240 Output: Urine 400 Other: Voiding Method Urinal Urinal # Voids 1 # Bowel Movements 1 - Exam General: The patient is awake and alert, in no distress Eye: there is normal conjunctiva bilaterally. Neck: The neck is supple, there is no JVD. Cardiovascular: Normal S1-S2, no S3-S4, no murmurs. 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 The right foot wrapped with dry/clean dressing. Neurological:. Speech is normal. Skin: Skin is warm and dry - Labs CBC & Chem 7: 01/07/17 06:33 01/07/17 06:30 Labs: Abnormal Lab Results - Last 24 Hours (Table) 01/06/17 01/06/17 01/07/17 Range/Units 15:06 21:12 06:30 RBC (4.30-5.90) m/uL Hgb (13.0-17.5) gm/dL Hct (39.0-53.0) % MCHC (31.0-37.0) g/dL RDW (11.5-15.5) % Lymphocytes # (1.0-4.8) k/uL Sodium 135 L (137-145) mmol/L BUN 36 H (9-20) mg/dL Creatinine 3.41 H (0.66-1.25) mg/dL POC Glucose (mg/dL) 107 H 238 H (75-99) mg/dL 01/07/17 Range/Units 06:33 RBC 3.77 L (4.30-5.90) m/uL Hgb 10.8 L (13.0-17.5) gm/dL Hct 37.5 L (39.0-53.0) % MCHC 28.8 L (31.0-37.0) g/dL RDW 15.6 H (11.5-15.5) % Lymphocytes # 0.9 L (1.0-4.8) k/uL Sodium (137-145) mmol/L BUN (9-20) mg/dL Creatinine (0.66-1.25) mg/dL POC Glucose (mg/dL) (75-99) mg/dL Assessment and Plan Plan: 1. Diabetic ulcer of the right foot and second toe: Currently on broad- spectrum antibiotic management by infectious disease Peripheral vascular occlusive disease status post angioplasty and stent placement by cardiology awaiting report. Awaiting vascular surgery recommendation for possible toe amputation 2. Penis ulcer secondary to a coffee burn. Improving 3. Chronic kidney disease stage V with history of right kidney transplant secondary to renal failure from his diabetes mellitus. Patient is on peritoneal dialysis. Nephrology will be consulted 4. Diabetes mellitus type 2: Uses sliding scale coverage at home. Place patient on sliding scale coverage. Hemoglobin A1c on last admission 4.7 5. Chronic atrial fibrillation: Anticoagulated with Coumadin. Check PT/INR. Holding Coumadin for possible amputation of the toe 6. History of peripheral vascular disease secondary to his diabetes mellitus and had required a left below the knee amputation 7. Chronic systolic CHF: No evidence of exacerbation. Echo from September 2016 shows an EF of 45-50% 8. Recent hospitalization with pneumonia and CHF exacerbation. Symptoms improved 9. Anemia of chronic kidney disease with iron deficiency anemia. Continue ferrous sulfate 10. History of coronary artery disease with previous coronary artery bypass graft 11. Severe protein calorie malnutrition. Patient refuses Glucerna shakes
[2017-01-07 11:06] VITALS: BMI 21.2
[2017-01-07 11:45] LABS: Glucose,Whole Blood 142 mg/dL (75-99)
[2017-01-07] MEDS: SODIUM CHLORIDE 0.9% 1,000 ML IV SCH (11:49)
[2017-01-07 16:34] LABS: Glucose,Whole Blood 220 mg/dL (75-99)
[2017-01-07 21:00] LABS: Glucose,Whole Blood 153 mg/dL (75-99)
[2017-01-07] MEDS: HEPARIN SODIUM,PORCINE 5,000 UNIT/ML 1 ML VIAL SQ SCH (21:54)
[2017-01-07] MEDS: TEMAZEPAM 15 MG CAP PO SCH (21:55)
[2017-01-07] MEDS: ASPIRIN 81 MG CHEW PO SCH (22:04)
[2017-01-08] MEDS: DIALYSIS (PERIT 1.5%) 2,000 ML 30 G/2,000 ML BAG INTRAPERIT SCH ×2 (03:36→16:02)
[2017-01-08 06:21] LABS: Glucose,Whole Blood 97 mg/dL (75-99)
[2017-01-08] MEDS: INSULIN LISPRO (humaLOG) 300 UNIT/3 ML VIAL SQ SCH ×4 (06:26→21:51)
[2017-01-08 06:27] LABS: Basophils % (A) 1 %; CH 29.1; CHCM 29.5; Eosinophils % (A) 1 %; HCT 35.3 % (39.0-53.0); HDW 2.84; HGB 10.4 gm/dL (13.0-17.5); Hypochromasia Marked; Luc # (Auto) 0.11; Luc % (Auto) 2; Lymphocytes % (A) 19 %; MCH 29.1 pg (25.0-35.0); MCHC 29.5 g/dL (31.0-37.0); MCV 98.5 fL (80.0-100.0); Macrocytosis Slight; Mean Platelet Volume 8.3; Monocytes # (A) 0.5 k/uL (0-1.0); Monocytes % (A) 10 %; Neutrophils # (A) 3.5 k/uL (1.3-7.7); Neutrophils % (A) 68 %; RBC 3.58 m/uL (4.30-5.90); RDW 15.5 % (11.5-15.5); WBC 5.1 k/uL (3.8-10.6); WBC (Perox) 5.05
[2017-01-08 06:37] LABS: Calcium 8.6 mg/dL (8.4-10.2); Magnesium 2.2 mg/dL (1.6-2.3); Potassium 4.5 mmol/L (3.5-5.1)
--- NOTE | 2017-01-08 09:31 | P.PN ---
Subjective Patient is seen for follow-up for end-stage renal disease. He is currently maintained on peritoneal dialysis. He is maintained on 2.5% solutions alternating with 1.5% solution. Patient has had the intervention on his right lower extremity by Dr. Fowler. At this time we are awaiting decision regarding amputation of the toe on his right foot. Patient has been eating and drinking fairly well he denies any other complaints. I discussed with Dr. Dugan and he stated that he will be discussing with Dr. Mcdaniel his senior foreman regarding the amputation. Objective - Vital Signs Vital signs: Vital Signs Temp 97.1 F L 01/08/17 05:00 Pulse 66 01/08/17 05:00 Resp 18 01/08/17 05:00 BP 117/52 01/08/17 05:00 Pulse Ox 97 01/08/17 05:00 Intake & Output 01/07/17 01/08/17 01/08/17 18:59 06:59 18:59 Intake Total 1320 Output Total 500 Balance 820 Weight 75 kg 75 kg 75 kg Intake: Oral 1320 Output: Urine 500 Other: Voiding Method Urinal Urinal Urinal # Voids 2 - Exam On examination blood pressure is 117/52 heart rate 66/m patient is afebrile Examination of the heart S1 and S2 Examination lungs bilateral breath sounds are heard Abdomen is soft nontender Exertion lower extremity shows right foot currently wrapped patient has left BKA. - Labs CBC & Chem 7: 01/08/17 05:43 01/08/17 05:43 Labs: Abnormal Lab Results - Last 24 Hours (Table) 01/07/17 01/07/17 01/07/17 Range/Units 11:26 16:25 20:52 RBC (4.30-5.90) m/uL Hgb (13.0-17.5) gm/dL Hct (39.0-53.0) % MCHC (31.0-37.0) g/dL Sodium (137-145) mmol/L BUN (9-20) mg/dL Creatinine (0.66-1.25) mg/dL POC Glucose (mg/dL) 142 H 220 H 153 H (75-99) mg/dL 01/08/17 01/08/17 Range/Units 05:43 05:43 RBC 3.58 L (4.30-5.90) m/uL Hgb 10.4 L (13.0-17.5) gm/dL Hct 35.3 L (39.0-53.0) % MCHC 29.5 L (31.0-37.0) g/dL Sodium 135 L (137-145) mmol/L BUN 35 H (9-20) mg/dL Creatinine 3.38 H (0.66-1.25) mg/dL POC Glucose (mg/dL) (75-99) mg/dL Assessment and Plan Plan: Assessment 1. End-stage renal disease on peritoneal dialysis. Currently maintained on 2.5 % solution alternating with 1.5% solutions. 2. Status post intervention on the right lower extremity with atherectomy for right lower extremity ischemia. Currently awaiting decision regarding amputation of the right foot. 3. Volume overload currently improved. 4. donor renal allograft currently maintained on tapering dose of immunosuppression. Plan Continue current PD exchanges. Await decision from vascular surgery.
[2017-01-08] MEDS: SODIUM BICARBONATE TAB 650 MG TAB PO SCH ×2 (09:45→21:49)
[2017-01-08] MEDS: MAGNESIUM OXIDE 400 MG TAB PO SCH (09:45)
[2017-01-08] MEDS: predniSONE 5 MG TAB PO SCH (09:45)
[2017-01-08] MEDS: VIT A,C & E-LUTEIN-MINERALS 1 EACH TAB PO SCH (09:45)
[2017-01-08] MEDS: MYCOPHENOLATE SODIUM DR 180 MG TABLET.DR PO SCH (09:45)
[2017-01-08] MEDS: MIDODRINE 5 MG TAB PO SCH (09:45)
[2017-01-08] MEDS: FOLIC ACID-VIT B COMPLEX-VIT C 1 CAP PO SCH (09:45)
[2017-01-08] MEDS: FUROSEMIDE 20 MG TAB PO SCH ×3 (09:46→21:49)
[2017-01-08] MEDS: CLOPIDOGREL 75 MG TAB PO SCH (09:46)
[2017-01-08] MEDS: CHOLECALCIFEROL 1,000 UNIT TAB PO SCH ×2 (09:46→21:49)
[2017-01-08] MEDS: FERROUS SULFATE 325 MG TAB PO SCH ×2 (09:46→21:49)
[2017-01-08] MEDS: TACROLIMUS 1 MG CAP PO SCH ×2 (09:46→21:49)
[2017-01-08] MEDS: HEPARIN SODIUM,PORCINE 5,000 UNIT/ML 1 ML VIAL SQ SCH (09:47)
[2017-01-08] MEDS: CALCITRIOL 0.25 MCG CAP PO SCH ×2 (09:47→21:49)
[2017-01-08] MEDS: DIALYSIS (PERIT 2.5%) 2,000 ML 50 G/2,000 ML BAG INTRAPERIT SCH ×2 (10:22→21:34)
--- NOTE | 2017-01-08 11:36 | PTCA ---
DATE OF SERVICE: 01/06/2017 PERFORMING PHYSICIAN: ANG BARKSDALE MD, PHARMACIST AIDE PROCEDURE PERFORMED: 1. Selective right [id number] angiogram. 2. Selective right popliteal angiogram. 3. Selective right SFA angiogram. 4. An atherectomy of the right anterior tibial using the CSI orbital atherectomy device. 5. An atherectomy of the right SFA using the CSA orbital atherectomy device. 6. Successful stenting of the right anterior tibial using 3.5 x 38 mm Xience NHI with a good angiographic result. 7. Successful balloon angioplasty of the right tibioperoneal trunk. 8. Successful balloon angioplasty of the right SFA. 9. Selective left SFA angiogram. INDICATION: This is a pleasant 61-year-old gentleman who was admitted to the hospital with evidence of critical limb ischemia CLI of the right leg. He underwent a peripheral angiogram by Dr. Dugan and the plan was to proceed with angioplasty. APPROACH: Left common femoral artery. COMPLICATION: None. LEVEL OF SEDATION: Moderate with a sedation length of 1 hour and 50 minutes. PROCEDURE DESCRIPTION: After obtaining an informed consent, the patient was brought to the Cardiac Personnel Worker. The left common femoral artery was cannulated using micropuncture technique. The micropuncture wire passed easily, then I placed an 11 cm, 6 Bulgarian sheath in the left common femoral artery. Subsequently, anticoagulation was initiated using heparin and the patient was given a weight-based heparin. After that, I did select the right SFA using an 0.035 glidewire which was subsequently exchanged into 0.035 Advantage wire using 0.035 Quick-Cross catheter. After that, I did exchange my 11 cm 6 Bulgarian sheath into 17 cm 6 Bulgarian sheath using the 0.035 Advantage wire. The tip of the sheath was positioned in the very proximal right SFA. After that, I did selective right [id number] angiogram and selective right popliteal as well as right SFA angiogram. I decided after that to proceed with an intervention on the right AT, right tibioperoneal trunk as well as right SFA. At that point, I did wire the left anterior tibial artery using 0.014 Advantage wire which was exchanged over 0.014 catheter into an 0.014 Viber wire preparing for orbital atherectomy. Subsequently, I did advance the orbital atherectomy device to the right AT where I did multiple runs of rotation atherectomy. After that, I did balloon angioplasty of the right AT using 3.0 x 60 mm balloon. The following angiogram showed that the ostial left AT continues to be very tight, so I decided to stent that, so I did deploy 3.5 x 38 mm Xience NHI where the stent was positioned under fluoroscopic guidance and deployed under its nominal pressure and the flowing angiogram showed good angiographic results. At that point, my 0.014 wire was redirected toward the TP trunk were I did balloon angioplasty of the TP trunk using 3.0 x 20 mm balloon. The following angiogram also showed good angiographic results. At that time, I did atherectomy of the the right AT I did also atherectomy of the distal right SFA using the same CSI device. After that, I did balloon angioplasty of the distal left SFA using 6.0 x 60 mm balloon which was inflated under a nominal pressure. The following angiogram showed excellent and showed good angiographic results with a non-flow limiting dissection. I decided to stop at that point. After that I did exchange my 55 cm 6 Bulgarian Raabe sheath into 11 cm 6 Bulgarian sheath using the Advantage wire. The short sheath was positioned in the left common femoral artery. After that, I did selective left common femoral artery angiogram before the procedure was completed. POST-PROCEDURE MANAGEMENT: 1. Dual antiplatelet therapy. 2. Risk factor modifications and follow up with the patient. EVE
[2017-01-08 11:42] LABS: Glucose,Whole Blood 232 mg/dL (75-99)
--- NOTE | 2017-01-08 12:03 | P.PN ---
Subjective Patient is doing well today. No events overnight. Objective - Vital Signs Vital signs: Vital Signs Temp 97.1 F L 01/08/17 05:00 Pulse 66 01/08/17 05:00 Resp 18 01/08/17 05:00 BP 117/52 01/08/17 05:00 Pulse Ox 97 01/08/17 05:00 Intake & Output 01/07/17 01/08/17 01/08/17 18:59 06:59 18:59 Intake Total 1320 240 Output Total 500 Balance 820 240 Weight 75 kg 75 kg 75 kg Intake: Oral 1320 240 Output: Urine 500 Other: Voiding Method Urinal Urinal Urinal # Voids 2 - Exam General: The patient is awake and alert, in no distress Eye: there is normal conjunctiva bilaterally. Neck: The neck is supple, there is no JVD. Cardiovascular: Normal S1-S2, no S3-S4, no murmurs. 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 The right foot wrapped with dry/clean dressing. Neurological:. Speech is normal. Skin: Skin is warm and dry - Labs CBC & Chem 7: 01/08/17 05:43 01/08/17 05:43 Labs: Abnormal Lab Results - Last 24 Hours (Table) 01/07/17 01/07/17 01/08/17 Range/Units 16:25 20:52 05:43 RBC 3.58 L (4.30-5.90) m/uL Hgb 10.4 L (13.0-17.5) gm/dL Hct 35.3 L (39.0-53.0) % MCHC 29.5 L (31.0-37.0) g/dL Sodium (137-145) mmol/L BUN (9-20) mg/dL Creatinine (0.66-1.25) mg/dL POC Glucose (mg/dL) 220 H 153 H (75-99) mg/dL 01/08/17 01/08/17 Range/Units 05:43 11:32 RBC (4.30-5.90) m/uL Hgb (13.0-17.5) gm/dL Hct (39.0-53.0) % MCHC (31.0-37.0) g/dL Sodium 135 L (137-145) mmol/L BUN 35 H (9-20) mg/dL Creatinine 3.38 H (0.66-1.25) mg/dL POC Glucose (mg/dL) 232 H (75-99) mg/dL Assessment and Plan Plan: 1. Diabetic ulcer of the right foot and second toe: Currently on broad- spectrum antibiotic management by infectious disease Peripheral vascular occlusive disease status post angioplasty and stent placement by cardiology awaiting report. Awaiting podiatry recommendation for possible toe amputation 2. Penis ulcer secondary to a coffee burn. Improving 3. Chronic kidney disease stage V with history of right kidney transplant secondary to renal failure from his diabetes mellitus. Patient is on peritoneal dialysis. Nephrology will be consulted 4. Diabetes mellitus type 2: Uses sliding scale coverage at home. Place patient on sliding scale coverage. Hemoglobin A1c on last admission 4.7 5. Chronic atrial fibrillation: Anticoagulated with Coumadin. Check PT/INR. Holding Coumadin for possible amputation of the toe 6. History of peripheral vascular disease secondary to his diabetes mellitus and had required a left below the knee amputation 7. Chronic systolic CHF: No evidence of exacerbation. Echo from September 2016 shows an EF of 45-50% 8. Recent hospitalization with pneumonia and CHF exacerbation. Symptoms improved 9. Anemia of chronic kidney disease with iron deficiency anemia. Continue ferrous sulfate 10. History of coronary artery disease with previous coronary artery bypass graft 11. Severe protein calorie malnutrition. Patient refuses Glucerna shakes
--- NOTE | 2017-01-08 13:07 | P.PN ---
Progress Note - Text Progress Note - SOAP Patient Name: Ike Keller Date of : 1955 Patient Status: Inpatient Attending Provider: Kyrie Mosquera Date: 01/08/17 12:02 Initialization Date: 01/08/17 12:02 Subjective Is being seen at request of vascular for evaluation and possible amputation of the digits 2 and 3 of the right foot. Patient states that the gangrene as a result of toenail clipping done by his daughter gangrenous tissue. Patient has had vascular intervention and at the request of vascular patient is being evaluated for possible amputation of these digits. Discussions with vascular shows that patient is at risk of BK amputation. He is aware that any attempt to save the foot with surgical intervention that being amputation of the gangrenous digits not a guarantee and he may require BK amputation due to failure of attempts to perform limb salvage. Objective - Vital Signs Vital signs: Vital Signs Temp 97.1 F L 01/08/17 05:00 Pulse 66 01/08/17 05:00 Resp 18 01/08/17 05:00 BP 117/52 01/08/17 05:00 Pulse Ox 97 01/08/17 05:00 Intake & Output 01/07/17 01/08/17 01/08/17 18:59 06:59 18:59 Intake Total 1320 240 Output Total 500 Balance 820 240 Weight 75 kg 75 kg 75 kg Intake: Oral 1320 240 Output: Urine 500 Other: Voiding Method Urinal Urinal Urinal # Voids 2 - Exam Patient has amputation BK the left lower extremity. She has nonpalpable pedal pulses of the right foot and ankle. The right foot and ankle is warm. There is some vascular return of the sub plexus area of digits 4 and 5 of the right foot. There is also vascular return to the dermis beneath metatarsals 1 through 5 of the right foot. There is some elevational talar to the right foot leg on the lateral aspect of the foot. 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 The right third toe appears pre- gangrenous. Neurologic exam shows diminished epicritic and pallesthetic sensation to the lower leg of the right foot. He exam shows diminished range of motion of all pedal joints. All inverters everters plantar flexors dorsiflexors grossly intact to the right foot. - Labs CBC & Chem 7: 01/08/17 05:43 01/08/17 05:43 Labs: Abnormal Lab Results - Last 24 Hours (Table) 01/07/17 01/07/17 01/08/17 Range/Units 16:25 20:52 05:43 RBC 3.58 L (4.30-5.90) m/uL Hgb 10.4 L (13.0-17.5) gm/dL Hct 35.3 L (39.0-53.0) % MCHC 29.5 L (31.0-37.0) g/dL Sodium (137-145) mmol/L BUN (9-20) mg/dL Creatinine (0.66-1.25) mg/dL POC Glucose (mg/dL) 220 H 153 H (75-99) mg/dL 01/08/17 01/08/17 Range/Units 05:43 11:32 RBC (4.30-5.90) m/uL Hgb (13.0-17.5) gm/dL Hct (39.0-53.0) % MCHC (31.0-37.0) g/dL Sodium 135 L (137-145) mmol/L BUN 35 H (9-20) mg/dL Creatinine 3.38 H (0.66-1.25) mg/dL POC Glucose (mg/dL) 232 H (75-99) mg/dL Assessment and Plan Plan: exam. Review of patient's past medical history as well as chart. No counter indication to attempted amputation of these digits. Discussed with patient amputation of the right second and third toes. As with patient complications prognosis risk expectations. It was told that I cannot determine if the amputation the digits will be successful. She was told he may end up with a BK amputation due to nonhealing wounds and complications same. As with patient possible transmetatarsal amputation. As with patient that a transmit amputation also may not be successful but may be needed in the future. Patient was told the digits 4 and 5 of the right foot would be at risk of further amputation. After long discussion of complications with patient as well as complications prognosis risk she will consent for attempted amputation of these affected digits. We'll proceed. Thank you for this consultation
--- NOTE | 2017-01-08 15:24 | XR ---
EXAMINATION TYPE: XR foot complete RT DATE OF EXAM: 01/08/2017 COMPARISON: NONE HISTORY: Presurgical evaluation TECHNIQUE: Three-view right foot nonweightbearing FINDINGS: There is amputation of the distal first metatarsal and. There is amputation of the distal f irst phalanx fifth digit. Hammertoes are present the second third and possibly fourth digit. Vascular calcification is present. There appears to be dislocation of the proximal phalanx on the second metatarsal. IMPRESSION: 1. Dislocation proximal phalanx on second metatarsal. 2. Amputation of the distal first metatarsal at the distal aspect proximal phalanx fifth digit. 3. Hammertoes
[2017-01-08 17:13] LABS: Glucose,Whole Blood 158 mg/dL (75-99)
[2017-01-08] MEDS: SODIUM CHLORIDE 0.9% 1,000 ML IV SCH (17:49)
[2017-01-08 20:33] LABS: Glucose,Whole Blood 169 mg/dL (75-99)
[2017-01-08] MEDS: DAPTOmycin 500 MG in SODIUM CHLORIDE 0.9% 50 ML IV SCH (21:33)
[2017-01-08] MEDS: TEMAZEPAM 15 MG CAP PO SCH (21:49)
[2017-01-08] MEDS: ASPIRIN 81 MG CHEW PO SCH (21:54)
[2017-01-08] MEDS ORDERED: LIDOCAINE 1% 20 ML VIAL (10MG/ML) FOR IV START INTRADERMA PRN (22:07)
[2017-01-08 23:09] LABS: Calcium 8.1 mg/dL (8.4-10.2); Potassium 4.5 mmol/L (3.5-5.1)
[2017-01-09] MEDS: DIALYSIS (PERIT 1.5%) 2,000 ML 30 G/2,000 ML BAG INTRAPERIT SCH ×2 (04:07→18:27)
[2017-01-09 05:36] LABS: Glucose,Whole Blood 95 mg/dL (75-99)
[2017-01-09 05:58] LABS: Basophils % (A) 0 %; CHCM 29.6; Eosinophils % (A) 1 %; HCT 36.4 % (39.0-53.0); HDW 2.79; HGB 10.7 gm/dL (13.0-17.5); Hypochromasia Marked; Luc # (Auto) 0.14; Luc % (Auto) 3; Lymphocytes # (A) 0.6 k/uL (1.0-4.8); Lymphocytes % (A) 12 %; MCH 28.8 pg (25.0-35.0); MCHC 29.3 g/dL (31.0-37.0); MCV 98.3 fL (80.0-100.0); Mean Platelet Volume 8.3; Monocytes # (A) 0.3 k/uL (0-1.0); Monocytes % (A) 5 %; Neutrophils # (A) 4.1 k/uL (1.3-7.7); Neutrophils % (A) 80 %; RDW 15.5 % (11.5-15.5); WBC 5.1 k/uL (3.8-10.6)
[2017-01-09] MEDS: INSULIN LISPRO (humaLOG) 300 UNIT/3 ML VIAL SQ SCH ×4 (06:08→21:10)
[2017-01-09 06:09] LABS: Calcium 8.5 mg/dL (8.4-10.2); Magnesium 2.1 mg/dL (1.6-2.3); Potassium 4.3 mmol/L (3.5-5.1)
[2017-01-09] MEDS ORDERED: LIDOCAINE 2% INJ 20 MG/ML SQ ONE (06:46)
[2017-01-09] MEDS ORDERED: BUPIVACAINE (PF) 0.5% 30 ML VIAL SQ ONE (06:47)
[2017-01-09] MEDS ORDERED: SODIUM CHLORIDE 0.9% 1,000 ML IV ONE (06:49)
[2017-01-09] MEDS ORDERED: ONDANSETRON 4 MG/2 ML VIAL IVP ONE (06:50)
[2017-01-09] MEDS ORDERED: ePHEDrine 50 MG/ML 1 ML AMP ONE (07:20)
[2017-01-09] MEDS ORDERED: KETAMINE 10 MG/ML 20 ML VIAL ONE (07:20)
[2017-01-09] MEDS ORDERED: fentaNYL (PF) 50 MCG/ML 2 ML AMP ONE (07:20)
[2017-01-09] MEDS ORDERED: PROPOFOL 10 MG/ML 20 ML VIAL IV ONE (07:20)
[2017-01-09] MEDS ORDERED: ePHEDrine SULFATE/0.9% NACL/PF 50 MG/5 ML SYRINGE IV ONE (07:20)
[2017-01-09] MEDS ORDERED: MIDAZOLAM 2 MG/2 ML VIAL ONE (07:20)
[2017-01-09] MEDS: CALCITRIOL 0.25 MCG CAP PO SCH ×2 (10:19→20:28)
[2017-01-09] MEDS: FERROUS SULFATE 325 MG TAB PO SCH ×2 (10:19→20:28)
[2017-01-09] MEDS: CHOLECALCIFEROL 1,000 UNIT TAB PO SCH ×2 (10:19→20:28)
[2017-01-09] MEDS: MYCOPHENOLATE SODIUM DR 180 MG TABLET.DR PO SCH (10:19)
[2017-01-09] MEDS: MIDODRINE 5 MG TAB PO SCH (10:20)
[2017-01-09] MEDS: MAGNESIUM OXIDE 400 MG TAB PO SCH (10:20)
[2017-01-09] MEDS: SODIUM BICARBONATE TAB 650 MG TAB PO SCH ×2 (10:20→20:28)
[2017-01-09] MEDS: FUROSEMIDE 20 MG TAB PO SCH ×3 (10:20→20:29)
[2017-01-09] MEDS: FOLIC ACID-VIT B COMPLEX-VIT C 1 CAP PO SCH (10:20)
[2017-01-09] MEDS: predniSONE 5 MG TAB PO SCH (10:21)
[2017-01-09] MEDS: TACROLIMUS 1 MG CAP PO SCH ×2 (10:21→20:29)
[2017-01-09] MEDS: VIT A,C & E-LUTEIN-MINERALS 1 EACH TAB PO SCH (10:21)
[2017-01-09] MEDS: CLOPIDOGREL 75 MG TAB PO SCH (10:22)
[2017-01-09] MEDS: LACTATED RINGERS 1,000 ML IV SCH (10:32)
[2017-01-09 11:49] LABS: Glucose,Whole Blood 121 mg/dL (75-99)
--- NOTE | 2017-01-09 12:59 | P.PN ---
Subjective Patient underwent amputation of the second and third right toe today. There is doing fairly well. Pain is well controlled. He is looking forward to start his diet. Objective - Vital Signs Vital signs: Vital Signs Temp 97.0 F L 01/09/17 09:55 Pulse 75 01/09/17 09:55 Resp 14 01/09/17 09:55 BP 118/54 01/09/17 09:55 Pulse Ox 99 01/09/17 09:55 Intake & Output 01/08/17 01/09/17 01/09/17 18:59 06:59 18:59 Intake Total 720 580 400 Output Total 0 525 5 Balance 720 55 395 Weight 75 kg 76.5 kg 76.5 kg Intake: IV 50 200 Intake, IV Titration 350 200 Amount DAPTOmycin 500 mg In 50 Sodium Chloride 0.9% 50 ml @ 100 mls/hr IV Q48H [facility] Rx#:[id number] Sodium Chloride 0.9% 1, 300 000 ml @ 25 mls/hr IV . Q24H [facility] Rx#:[id number] Sodium Chloride 0.9% 1, 200 000 ml As IV [facility] Rx#:[id number] Oral 720 180 Output: Urine 0 525 Estimated Blood Loss 5 Other: Voiding Method Urinal Urinal Urinal # Voids 2 - Exam General: The patient is awake and alert, in no distress Eye: there is normal conjunctiva bilaterally. Neck: The neck is supple, there is no JVD. Cardiovascular: Normal S1-S2, no S3-S4, no murmurs. 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 The right foot wrapped with dry/clean dressing. Neurological:. Speech is normal. Skin: Skin is warm and dry - Labs CBC & Chem 7: 01/09/17 05:43 01/09/17 05:43 Labs: Abnormal Lab Results - Last 24 Hours (Table) 01/08/17 01/08/17 01/08/17 Range/Units 16:48 20:32 22:32 RBC (4.30-5.90) m/uL Hgb (13.0-17.5) gm/dL Hct (39.0-53.0) % MCHC (31.0-37.0) g/dL Lymphocytes # (1.0-4.8) k/uL Sodium 132 L (137-145) mmol/L Carbon Dioxide (22-30) mmol/L BUN 38 H (9-20) mg/dL Creatinine 3.47 H (0.66-1.25) mg/dL Glucose 223 H (74-99) mg/dL POC Glucose (mg/dL) 158 H 169 H (75-99) mg/dL Calcium 8.1 L (8.4-10.2) mg/dL 01/09/17 01/09/17 01/09/17 Range/Units 05:43 05:43 11:43 RBC 3.70 L (4.30-5.90) m/uL Hgb 10.7 L (13.0-17.5) gm/dL Hct 36.4 L (39.0-53.0) % MCHC 29.3 L (31.0-37.0) g/dL Lymphocytes # 0.6 L (1.0-4.8) k/uL Sodium 136 L (137-145) mmol/L Carbon Dioxide 21 L (22-30) mmol/L BUN 40 H (9-20) mg/dL Creatinine 3.50 H (0.66-1.25) mg/dL Glucose (74-99) mg/dL POC Glucose (mg/dL) 121 H (75-99) mg/dL Calcium (8.4-10.2) mg/dL Assessment and Plan Plan: 1. Diabetic ulcer of the right foot and second toe Peripheral vascular occlusive disease status post angioplasty and stent placement to the right anterior tibial artery by cardiology. status post amputation of the right second and third toe on 01/09/17 2. Penis ulcer secondary to a coffee burn. Improving 3. Chronic kidney disease stage V with history of right kidney transplant secondary to renal failure from his diabetes mellitus. Patient is on peritoneal dialysis. Nephrology will be consulted 4. Diabetes mellitus type 2: Uses sliding scale coverage at home. Place patient on sliding scale coverage. Hemoglobin A1c on last admission 4.7 5. Chronic atrial fibrillation: Anticoagulated with Coumadin. Check PT/INR. Holding Coumadin for possible amputation of the toe 6. History of peripheral vascular disease secondary to his diabetes mellitus and had required a left below the knee amputation 7. Chronic systolic CHF: No evidence of exacerbation. Echo from September 2016 shows an EF of 45-50% 8. Recent hospitalization with pneumonia and CHF exacerbation. Symptoms improved 9. Anemia of chronic kidney disease with iron deficiency anemia. Continue ferrous sulfate 10. History of coronary artery disease with previous coronary artery bypass graft 11. Severe protein calorie malnutrition. Patient refuses Glucerna shakes
[2017-01-09] MEDS: DIALYSIS (PERIT 2.5%) 2,000 ML 50 G/2,000 ML BAG INTRAPERIT SCH (13:22)
[2017-01-09 13:30] VITALS: RESP 16
--- NOTE | 2017-01-09 14:11 | OP ---
PREOPERATIVE DIAGNOSIS: Avascular necrotic gangrenous digits 2, 3 of the right foot. POSTOPERATIVE DIAGNOSIS: Avascular necrotic gangrenous digits 2, 3 of the right foot. PROCEDURE: Amputation digits 2, 3 of the right foot with partial excision head of second metatarsal right foot. SURGEON: AFSHAN MUÑIZ DPM ASSIST: None. ANESTHESIA: Local with sedation. Patient was transferred from the inhouse care down to the OR staging area. At this point, patient was evaluated by Anesthesias and myself for preoperative concerns, none were found and we proceeded with procedure. Patient was evaluated and all questions were answered. Patient consented to the surgery. Patient was brought to the OR table and placed on the OR table in a supine position. Patient was then sedated and anesthesia was accomplished. A Camacho block of the second and third ray using 10 mL of 2% Xylocaine plain. The right foot was then prepped an draped in the usual aseptic manner. Attention was directed to the right foot where an incision was made circumcising the second and third digits about the necrotic tissue in a geographic-type manner. The wound was then carried down through superficial and deep fascia with care taken to retract all vital structures and clamp and cauterize all superficial bleeders. At the level of the metatarsal phalangeal joints, the digits were disarticulated and the digits were removed from the foot and retained for pathological evaluation. Upon inspection of the wound, the second metatarsal head was found to be impacted and fragmented at the neck. This was excised. Using a sagittal saw, the remaining distal aspect of the second metatarsal was remodeled so to have a clean regular surface. The wound was copiously lavaged with sterile saline solution. The wound was inspected and adequate surgical reduction of the deformity was noted. During the procedure, marginal to minimal perfusion was noted through the wound. The wound was then reapproximated with the deep fascia planes to cover all osseous tissue with 3-0 Vicryl simple interrupted sutures. The wound was then also reinforced with 2-0 nylon to help reapproximate the gap of the dermal structures. The would was again copiously lavaged with sterile saline solution. The wound was then dressed with Adaptic 4 x 4 ( ). Patient's foot was evaluated, it continued to have good vascular flow to the digits as well as the surgical area; however, marginal. Patient was brought to the recovery room until stable and then transferred to the floor for further inhouse care. We will see the patient in the [facility] for followup after discharge. EVE
[2017-01-09 17:42] LABS: Glucose,Whole Blood 264 mg/dL (75-99)
[2017-01-09] MEDS: SODIUM CHLORIDE 0.9% 1,000 ML IV SCH (17:47)
[2017-01-09] MEDS: ASPIRIN 81 MG CHEW PO SCH (20:28)
[2017-01-09 21:07] LABS: Glucose,Whole Blood 255 mg/dL (75-99)
[2017-01-10] MEDS: LACTATED RINGERS 1,000 ML IV SCH (00:03)
[2017-01-10] MEDS: TEMAZEPAM 15 MG CAP PO SCH (00:27)
[2017-01-10] MEDS: DIALYSIS (PERIT 1.5%) 2,000 ML 30 G/2,000 ML BAG INTRAPERIT SCH (05:44)
[2017-01-10 07:37] LABS: Basophils % (A) 0 %; CH 29.1; CHCM 29.6; Eosinophils % (A) 1 %; HCT 36.4 % (39.0-53.0); HDW 2.83; HGB 10.7 gm/dL (13.0-17.5); Hypochromasia Marked; Luc % (Auto) 2; Lymphocytes # (A) 0.9 k/uL (1.0-4.8); Lymphocytes % (A) 20 %; MCH 28.9 pg (25.0-35.0); MCHC 29.3 g/dL (31.0-37.0); MCV 98.5 fL (80.0-100.0); Macrocytosis Slight; Mean Platelet Volume 8.5; Monocytes # (A) 0.4 k/uL (0-1.0); Monocytes % (A) 8 %; Neutrophils # (A) 3.2 k/uL (1.3-7.7); Neutrophils % (A) 69 %; RBC 3.69 m/uL (4.30-5.90); RDW 15.6 % (11.5-15.5); WBC 4.6 k/uL (3.8-10.6); WBC (Perox) 4.89
[2017-01-10 08:15] LABS: Calcium 8.4 mg/dL (8.4-10.2); Potassium 4.9 mmol/L (3.5-5.1)
[2017-01-10 08:18] LABS: Glucose,Whole Blood 139 mg/dL (75-99)
[2017-01-10] MEDS: INSULIN LISPRO (humaLOG) 300 UNIT/3 ML VIAL SQ SCH (08:18)
[2017-01-10] MEDS: MIDODRINE 5 MG TAB PO SCH (08:19)
[2017-01-10] MEDS: CALCITRIOL 0.25 MCG CAP PO SCH (08:19)
[2017-01-10] MEDS: VIT A,C & E-LUTEIN-MINERALS 1 EACH TAB PO SCH (08:19)
[2017-01-10] MEDS: predniSONE 5 MG TAB PO SCH (08:20)
[2017-01-10] MEDS: CHOLECALCIFEROL 1,000 UNIT TAB PO SCH (08:20)
[2017-01-10] MEDS: CLOPIDOGREL 75 MG TAB PO SCH (08:20)
[2017-01-10] MEDS: FERROUS SULFATE 325 MG TAB PO SCH (08:20)
[2017-01-10] MEDS: TACROLIMUS 1 MG CAP PO SCH (08:21)
[2017-01-10] MEDS: MAGNESIUM OXIDE 400 MG TAB PO SCH (08:21)
[2017-01-10] MEDS: MYCOPHENOLATE SODIUM DR 180 MG TABLET.DR PO SCH (08:21)
[2017-01-10] MEDS: FUROSEMIDE 20 MG TAB PO SCH (08:21)
[2017-01-10] MEDS: SODIUM BICARBONATE TAB 650 MG TAB PO SCH (08:21)
[2017-01-10] MEDS: FOLIC ACID-VIT B COMPLEX-VIT C 1 CAP PO SCH (08:21)
[2017-01-10] MEDS: DIALYSIS (PERIT 2.5%) 2,000 ML 50 G/2,000 ML BAG INTRAPERIT SCH ×2 (12:09)
[2017-01-10 12:15] VITALS: BP 103/55; PULSE 66; TEMP 97.8
--- NOTE | 2017-01-10 12:24 | P.DS ---
Providers Date of admission: 01/01/17 12:10 Expected date of discharge: 01/10/17 Attending physician: Kyrie Mosquera Consults: 01/01/17 13:02 Consult Physician Routine Consulting Provider: Don Dugan Consult Reason/Comments: gangrene 2nd toe right foot Do you want consulting provider notified?: Yes 01/01/17 13:03 Consult Physician Routine Consulting Provider: Maycol Nino Consult Reason/Comments: gangrene right foot 2nd toe, penis ulcer Do you want consulting provider notified?: Yes 01/01/17 13:04 Consult Physician Routine Consulting Provider: Crissy Saini Consult Reason/Comments: ESRD peritoneal dialysis Do you want consulting provider notified?: Yes 01/08/17 10:07 Consult Physician Routine Consulting Provider: Joel Mcdaniel Consult Reason/Comments: toe gangrene Do you want consulting provider notified?: Yes Primary care physician: Kyrie [facility] Course: This is a 61-year-old gentleman with past medical history noted below significant for underlying type 2 diabetes and peripheral vascular disease with history of left BKA who presented to the hospital with worsening necrosis of the right second and third toe. Patient was admitted was seen by different specialists. Below his abuse of his medical problems addressed during this hospitalization. Patient will be discharged home in a stable condition. 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 He will follow- up with the wound care clinic next week. Follow-up with primary care physician as directed. 1. Diabetic ulcer of the right foot and second toe with Peripheral vascular occlusive disease status post angioplasty and stent placement to the right anterior tibial artery by cardiology. status post amputation of the right second and third toe on 01/09/17 2. Penis ulcer secondary to a coffee burn. Improving 3. Chronic kidney disease stage V with history of right kidney transplant secondary to renal failure from his diabetes mellitus. Patient is on peritoneal dialysis. Nephrology will be consulted 4. Diabetes mellitus type 2: Uses sliding scale coverage at home. Place patient on sliding scale coverage. Hemoglobin A1c on last admission 4.7 5. Chronic atrial fibrillation: Anticoagulated with Coumadin. Check PT/INR. Holding Coumadin for possible amputation of the toe 6. History of peripheral vascular disease secondary to his diabetes mellitus and had required a left below the knee amputation 7. Chronic systolic CHF: No evidence of exacerbation. Echo from September 2016 shows an EF of 45-50% 8. Recent hospitalization with pneumonia and CHF exacerbation. Symptoms improved 9. Anemia of chronic kidney disease with iron deficiency anemia. Continue ferrous sulfate 10. History of coronary artery disease with previous coronary artery bypass graft 11. Severe protein calorie malnutrition. Patient refuses Glucerna shakes Plan - Discharge Summary New Discharge Prescriptions: New Clopidogrel [Plavix] 75 mg PO DAILY #30 tab Ferrous Sulfate [Iron (65 MG Elemental)] 325 mg PO BID #60 tab Continue Cholecalciferol [Vitamin D3] 2,000 mg PO BID Sodium Bicarbonate Tab 650 mg PO BID Tacrolimus [Prograf] 1 mg PO BID Magnesium Gluconate [Magonate] 500 mg PO DAILY Aspirin EC [Ecotrin Low Dose] 81 mg PO HS Atorvastatin [Lipitor] 80 mg PO HS Calcitriol 0.5 mcg PO BID Vit C/E/Zn/Coppr/Lutein/Zeaxan [Preservision Areds 2 Softgel] 1 cap PO BID Temazepam [Restoril] 15 mg PO HS INSULIN LISPRO (HumaLOG) [humaLOG] See Protocol SQ ACHS predniSONE 5 mg PO DAILY tab Mycophenolate Sodium Dr [Myfortic] 360 mg PO DAILY Ferrous Sulfate [Feosol] 325 mg PO BID #60 tab Renaplex D Vitamin 1 tab PO DAILY Midodrine HCl [ProAmatine] 5 mg PO DIRECTED Furosemide [Lasix] 20 mg PO TID Docusate [Colace] 100 mg PO BID PRN PRN Reason: Constipation Discontinued Warfarin [Coumadin] 1 mg PO DAILY Cephalexin [Keflex] 500 mg PO TID Discharge Medication List Cholecalciferol [Vitamin D3] 2,000 mg PO BID 05/17/14 [History] Sodium Bicarbonate Tab 650 mg PO BID 05/17/14 [History] Tacrolimus [Prograf] 1 mg PO BID 12/06/14 [History] Magnesium Gluconate [Magonate] 500 mg PO DAILY 02/01/15 [History] Aspirin EC [Ecotrin Low Dose] 81 mg PO HS 02/12/16 [History] Atorvastatin [Lipitor] 80 mg PO HS 02/12/16 [History] Calcitriol 0.5 mcg PO BID 02/12/16 [History] Vit C/E/Zn/Coppr/Lutein/Zeaxan [Preservision Areds 2 Softgel] 1 cap PO BID 02/11 [History] Temazepam [Restoril] 15 mg PO HS 07/18/16 [History] INSULIN LISPRO (HumaLOG) [humaLOG] See Protocol SQ ACHS 07/19/16 [History] predniSONE 5 mg PO DAILY tab 07/21/16 [Rx] Mycophenolate Sodium Dr [Myfortic] 360 mg PO DAILY 09/15/16 [History] Ferrous Sulfate [Feosol] 325 mg PO BID #60 tab 12/22/16 [Rx] Docusate [Colace] 100 mg PO BID PRN 01/01/17 [History] Furosemide [Lasix] 20 mg PO TID 01/01/17 [History] Midodrine HCl [ProAmatine] 5 mg PO DIRECTED 01/01/17 [History] Renaplex D Vitamin 1 tab PO DAILY 01/01/17 [History] Clopidogrel [Plavix] 75 mg PO DAILY #30 tab 01/10/17 [Rx] Ferrous Sulfate [Iron (65 MG Elemental)] 325 mg PO BID #60 tab 01/10/17 [Rx] Follow up Appointment(s)/Referral(s): [facility], [NON-STAFF] - Kyrie Mosquera MD [Primary Care Provider] - 1 Week Joel Mcdaniel DPM [STAFF PHYSICIAN] - 3 Days Discharge Disposition: HOME WITH HOME HEALTH SERVICES
[2017-01-10 12:50] LABS: Glucose,Whole Blood 97 mg/dL (75-99)
== END 2017-01-10 15:01 | disposition home health service (06) | DRG 270 ==
LOC: 4MS4W 12:10 → 6SEL 01-02 17:35 → 3SUR 01-09 10:38
PROVIDERS: ADMIT Internal Medicine; ATTEND Internal Medicine
PROC: B41F1ZZ Fluoroscopy of Right Lower Extremity Arteries using Low Osmolar Contrast (ICD-10-PCS; 2017-01-02 12:30)
PROC: 04CP3ZZ Extirpation of Matter from Right Anterior Tibial Artery, Percutaneous Approach (ICD-10-PCS; 2017-01-06)
PROC: 047P34Z Dilation of Right Anterior Tibial Artery with Drug-eluting Intraluminal Device, Percutaneous Approach (ICD-10-PCS; 2017-01-06)
PROC: 04CK3ZZ Extirpation of Matter from Right Femoral Artery, Percutaneous Approach (ICD-10-PCS; 2017-01-06)
PROC: 0QBN0ZZ Excision of Right Metatarsal, Open Approach (ICD-10-PCS; principal; 2017-01-09 07:30)
PROC: 0Y6R0Z0 Detachment at Right 2nd Toe, Complete, Open Approach (ICD-10-PCS; principal; 2017-01-09 07:30)
PROC: 0Y6T0Z0 Detachment at Right 3rd Toe, Complete, Open Approach (ICD-10-PCS; principal; 2017-01-09 07:30)
DX: E11.52 Type 2 diabetes mellitus with diabetic peripheral angiopathy with gangrene (principal); E43 Unspecified severe protein-calorie malnutrition; I13.2 Hypertensive heart and chronic kidney disease with heart failure and with stage 5 chronic kidney disease, or end stage renal disease; I70.261 Atherosclerosis of native arteries of extremities with gangrene, right leg; E11.22 Type 2 diabetes mellitus with diabetic chronic kidney disease; N18.6 End stage renal disease; I48.2 Chronic atrial fibrillation; I50.22 Chronic systolic (congestive) heart failure; Z94.0 Kidney transplant status; I70.92 Chronic total occlusion of artery of the extremities; N48.5 Ulcer of penis; D50.9 Iron deficiency anemia, unspecified; D63.1 Anemia in chronic kidney disease; E11.621 Type 2 diabetes mellitus with foot ulcer; L97.512 Non-pressure chronic ulcer of other part of right foot with fat layer exposed; E78.5 Hyperlipidemia, unspecified; E11.42 Type 2 diabetes mellitus with diabetic polyneuropathy; H40.9 Unspecified glaucoma; I25.10 Atherosclerotic heart disease of native coronary artery without angina pectoris; I25.2 Old myocardial infarction; K21.9 Gastro-esophageal reflux disease without esophagitis; Z99.2 Dependence on renal dialysis; X10.0XXA Contact with hot drinks, initial encounter; Z79.01 Long term (current) use of anticoagulants; Z79.4 Long term (current) use of insulin; Z79.899 Other long term (current) drug therapy; Z83.3 Family history of diabetes mellitus; Z89.429 Acquired absence of other toe(s), unspecified side; Z89.512 Acquired absence of left leg below knee; Z95.1 Presence of aortocoronary bypass graft; Z98.84 Bariatric surgery status
CPT/HCPCS: 36200; 37225; 37231; 71250; 74150; 75710; 80048; 80053; 83036; 83735; 84100; 85025; 85610; 87070; 87077; 87186; 87205

== ENCOUNTER 2017-02-23 13:50 | Inpatient (IN) | payer MEDICARE, BC ==
[2017-02-23] MEDS ORDERED: SODIUM CHLORIDE 0.9% 1,000 ML IV SCH (14:45)
--- NOTE | 2017-02-23 14:54 | P.HPIM ---
History of Present Illness H&P Date: 02/23/17 Chief Complaint: Worsening right foot ulcer This is a 61-year-old male with a known history of chronic renal failure with right kidney transplant on peritoneal dialysis. Also has a history of coronary artery disease with previous coronary artery bypass grafting, atrial fibrillation, DVT of the lower extremity with a Jamarcus filter placed, hypertension and hyperlipidemia. diabetes mellitus type 2, peripheral vascular disease, left BKA, previous hospital admission in January with necrosis of the right second and third toe requiring amputation of those toes on 01/09/2017. Patient also had angioplasty and stent placement to the right anterior tibial artery by cardiology during that admission. Since that admission in January he has had issues with that right foot. He has necrotic tissue on the pad of the foot. There is also some necrotic changes along the lateral aspect of the foot. The posterior part of the foot is red and warm. There is a follow odor present per patient. Patient noted changes of the last 2 weeks. He's been following up with Dr. Nino in the wound care center. He reports he has been on Bactrim in the outpatient setting. Patient was at Dr. Nino office for routine visit and was told to go see Dr. Mosquera and be directly admitted to the hospital for possible amputation of the foot. Patient is also noted some discharge and follow odor from the open area of the ulcer on top of his foot. Patient denies any fever or chills or sweats. Denies any nausea or vomiting. Denies any bowel movement changes or urinary symptoms. Review of Systems Please refer to HPI otherwise unremarkable Past Medical History Past Medical History: Atrial Fibrillation, Coronary Artery Disease (CAD), Heart Failure, Diabetes Mellitus, Dialysis, Deep Vein Thrombosis (DVT), GERD/Reflux, Hyperlipidemia, Hypertension, Myocardial Infarction ([place]), Osteoarthritis (OA), Pneumonia, Renal Disease, Thyroid Disorder, Vascular Disorder Additional Past Medical History / Comment(s): TAKES NO CURRENT MEDS FOR THYROID , STATES HAS ONE CURRENT KIDNEY TRANSPLANT THAT IS FAILING. HAS LEFT BELOW KNEE PROSTHESIS, ANEMIA,"RECENT BX,PT BELEIVES IT WAS THE TEMPEROL ARTERY" AND STATES HE HAS LOST THE VISON IN RT EYE SINCE, GLAUCOMA. Last Myocardial Infarction Date:: 2009 History of Any Multi-Drug Resistant Organisms: None Reported Past Surgical History: Adenoidectomy, Bariatric Surgery, Coronary Bypass/CABG, Heart Catheterization, Tonsillectomy Additional Past Surgical History / Comment(s): jamarcus fliter, kidney transplant-X2,CABG-2010 TRIPLE, gastric bypass, RT great toe amputation , LANDON CATARACTS, RIGHT carotid endarterectomy, amputation lt BKA,angioplasty to the popliteal artery and posterior left femoral artery performed by Dr. Fowler on , RECENT BX-PT BELIEVES IT WAS OF THE RT TEMPERAL ARTERY. Past Anesthesia/Blood Transfusion Reactions: No Reported Reaction Additional Past Anesthesia/Blood Transfusion Reaction / Comment(s): HX BLOOD TRANSFUSIONS- NO REACTIONS . Past Psychological History: No Psychological Hx Reported Additional Psychological History / Comment(s): Single. Lives in a family home with his daughter and her 2 children. [employer] nonsmoker. No significant alcohol use. Medically disabled. Pet dog. No experience Smoking Status: Never smoker Past Alcohol Use History: None Reported Additional Past Alcohol Use History / Comment(s): USED TO SMOKE AN OCC CIGAR AT SOCIAL EVENTS Past Drug Use History: None Reported - Past Family History Father Family Medical History: Diabetes Mellitus, Dialysis Additional Family Medical History / Comment(s): "big heart", bilat BKA Mother Family Medical History: Cancer Additional Family Medical History / Comment(s): colon Medications and Allergies Home Medications Medication Instructions Recorded Confirmed Type Cholecalciferol [Vitamin D3] 2,000 mg PO BID 05/17/14 02/23/17 History Sodium Bicarbonate Tab 20 gram PO BID 05/17/14 02/23/17 History Tacrolimus [Prograf] 1 mg PO BID 12/06/14 02/23/17 History Magnesium Gluconate [Magonate] 500 mg PO DAILY 02/01/15 02/23/17 History Aspirin EC [Ecotrin Low Dose] 81 mg PO HS 02/12/16 02/23/17 History Atorvastatin [Lipitor] 80 mg PO HS 02/12/16 02/23/17 History Calcitriol 0.5 mcg PO DAILY 02/12/16 02/23/17 History Vit C/E/Zn/Coppr/Lutein/Zeaxan 1 cap PO BID 02/12/16 02/23/17 History [Preservision Areds 2 Softgel] Temazepam [Restoril] 15 mg PO HS 07/18/16 02/23/17 History INSULIN LISPRO (HumaLOG) [humaLOG] See Protocol SQ ACHS 07/19/16 02/23/17 History predniSONE 5 mg PO DAILY tab 07/21/16 02/23/[address] [Myfortic] 360 mg PO DAILY 09/15/16 02/23/17 History Ferrous Sulfate [Feosol] 325 mg PO BID #60 tab 12/22/16 02/23/17 Rx Docusate [Colace] 100 mg PO BID PRN 01/01/17 02/23/17 History Furosemide [Lasix] 20 mg PO BID 01/01/17 02/23/17 History Midodrine HCl [ProAmatine] 5 mg PO DAILY 01/01/17 02/23/17 History Renaplex D Vitamin 1 tab PO DAILY 01/01/17 02/23/17 History Clopidogrel [Plavix] 75 mg PO DAILY #30 tab 01/10/17 02/23/17 Rx Sulfamethox-Tmp 400-80Mg [Bactrim 1 tab PO Q12HR #60 tablet 02/16/17 Rx SS 400-80 mg] Allergies Allergy/AdvReac Type Severity Reaction Status Date / Time codeine AdvReac Severe constipatio Verified 02/23/17 09:58 n Physical Exam Vitals: Head normocephalic Neck supple Lungs clear to auscultation bilaterally no wheezing or crackles Heart regular rate and rhythm S1-S2, no rub or gallop Abdomen is soft nontender nondistended positive bowel sounds no hepatosplenomegaly Extremities right foot last 2 toes are present. Black necrotic tissue on the pad of the foot. Ulcer on the distal aspect of the foot with granulation tissue and a yellowish drainage. No tenderness with palpation. Patient is able to move his toes. Unable to palpated pulse. There is some swelling noted and some erythema on along the plantar aspect of the foot. Patient also has some necrotic tissue along the lateral aspect of the right foot. Left below-the -knee amputation Neuro alert and orientated to 3 Assessment and Plan Plan: 1. Right foot is ulcer with necrotic skin changes: Had been on Bactrim outpatient with no improvement. Consult infectious disease. Wound cultures ordered. Antibiotics per infectious disease. 2. Known diabetic ulcer of the right foot with peripheral vascular disease status post angioplasty and stent placement to the right anterior tibial artery by cardiology in January 2017. Patient is also status post amputation of the right second and third toe on 01/09/2017 3. Chronic kidney disease stage V with history of right kidney transplant secondary to his diabetes mellitus. Patient currently on peritoneal dialysis. Consult from nephrology placed 4. Diabetes mellitus type 2. We'll place patient on Humalog sliding scale. Previous hemoglobin A1c was 4.7 5. Chronic atrial fibrillation: Coumadin discontinued on last admission 6. History of peripheral vascular disease secondary to his diabetes mellitus and required a left below the knee amputation 7. Chronic systolic CHF: No evidence of exacerbation. Echo from September 2016 shows an EF of 45-50% 8. Anemia of chronic kidney disease with iron deficiency anemia. 9. History of coronary artery disease with previous coronary artery bypass grafting GI prophylaxis Protonix and DVT prophylaxis subcu heparin Time with Patient: Greater than 30 (Greater than 50% of the total time spent in counseling and coordination of care.I performed an examination of the patient and discussed their management with the physician Gate Technician. I have reviewed the Physician Gate Technician's notes and agree with the documented findings and plan of care)
[2017-02-23 15:01] LABS: Glucose,Whole Blood 267 mg/dL (75-99)
[2017-02-23 15:33] LABS: Calcium 8.3 mg/dL (8.4-10.2); Potassium 3.9 mmol/L (3.5-5.1); Total Bilirubin 0.2 mg/dL (0.2-1.3); Total Protein 4.6 g/dL (6.3-8.2)
[2017-02-23 15:36] LABS: Basophils % (A) 0 %; CH 27.1; CHCM 30.4; Eosinophils % (A) 0 %; HCT 37.5 % (39.0-53.0); HDW 2.79; HGB 11.7 gm/dL (13.0-17.5); Hypochromasia Moderate; Luc # (Auto) 0.08; Luc % (Auto) 1; Lymphocytes # (A) 0.6 k/uL (1.0-4.8); Lymphocytes % (A) 7 %; MCH 27.8 pg (25.0-35.0); MCHC 31.1 g/dL (31.0-37.0); Monocytes # (A) 0.4 k/uL (0-1.0); Monocytes % (A) 5 %; Neutrophils # (A) 6.8 k/uL (1.3-7.7); Neutrophils % (A) 86 %; RBC 4.19 m/uL (4.30-5.90); RDW 14.3 % (11.5-15.5); WBC 7.9 k/uL (3.8-10.6); WBC (Perox) 8.02
[2017-02-23 15:42] LABS: MCV 89.4 fL (80.0-100.0)
[2017-02-23 17:00] LABS: Glucose,Whole Blood 178 mg/dL (75-99)
[2017-02-23] MEDS ORDERED: DOCUSATE 100 MG CAP PO PRN (17:05)
--- NOTE | 2017-02-23 17:17 | P.GSCN ---
History of Present Illness History of present illness: 61-year-old old diabetic male, history of chronic renal failure, history of peripheral vascular disease, patient has been admitted with gangrene of the right foot he had a torn retina in the past. He also had to remove in the past now he has developed gangrene of the right foot plantar dorsal aspect I was called in by Dr. Nino for amputation have discussed with the patient in detail patient is known to me from the past i agreed for right BK amputation this patient had a angioplasty done by Dr. Fowler in the past Medical history history of at fibrillation, history of coronary artery bypass graft. History of chronic failure on peritoneal dialysis Surgical history patient had a left below-knee present by me in the past Neck examination neck is supple no bruit appreciated Chest is clear first and second sound is normal Abdomen soft nontender Vascular examination femorals are palpable patient has a gangrene of the right foot BK stump is healing good Plan is right below-knee amputation we will ask Dr. Feliciano for clear for surgery risk and complication bleeding infection heart attack flap necrosis has been discussed Past Medical History Past Medical History: Atrial Fibrillation, Coronary Artery Disease (CAD), Heart Failure, Diabetes Mellitus, Dialysis, Deep Vein Thrombosis (DVT), GERD/Reflux, Hyperlipidemia, Hypertension, Myocardial Infarction ([place]), Osteoarthritis (OA), Pneumonia, Renal Disease, Thyroid Disorder, Vascular Disorder Additional Past Medical History / Comment(s): TAKES NO CURRENT MEDS FOR THYROID , STATES HAS ONE CURRENT KIDNEY TRANSPLANT THAT IS FAILING. HAS LEFT BELOW KNEE PROSTHESIS, ANEMIA,"RECENT BX,PT BELEIVES IT WAS THE TEMPEROL ARTERY" AND STATES HE HAS LOST THE VISON IN RT EYE SINCE, GLAUCOMA. GOES TO [facility] Last Myocardial Infarction Date:: 2009 History of Any Multi-Drug Resistant Organisms: None Reported Past Surgical History: Adenoidectomy, Bariatric Surgery, Coronary Bypass/CABG, Heart Catheterization, Tonsillectomy Additional Past Surgical History / Comment(s): jamarcus fliter, kidney transplant-X2,CABG-2010 TRIPLE, gastric bypass, RT great toe amputation , LANDON CATARACTS, RIGHT carotid endarterectomy, amputation lt BKA,angioplasty to the popliteal artery and posterior left femoral artery performed by Dr. Fowler on , RECENT BX-PT BELIEVES IT WAS OF THE RT TEMPERAL ARTERY. Past Anesthesia/Blood Transfusion Reactions: No Reported Reaction Additional Past Anesthesia/Blood Transfusion Reaction / Comm: HX BLOOD TRANSFUSIONS- NO REACTIONS . Smoking Status: Never smoker - Past Family History Father Family Medical History: Diabetes Mellitus, Dialysis Additional Family Medical History / Comment(s): "big heart", bilat BKA Mother Family Medical History: Cancer Additional Family Medical History / Comment(s): colon Medications and Allergies Home Medications Medication Instructions Recorded Confirmed Type Cholecalciferol [Vitamin D3] 5,000 mg PO HS 05/17/14 02/23/17 History Sodium Bicarbonate Tab 650 mg PO BID 05/17/14 02/23/17 History Tacrolimus [Prograf] 1 mg PO BID 12/06/14 02/23/17 History Magnesium Gluconate [Magonate] 500 mg PO DAILY 02/01/15 02/23/17 History Aspirin EC [Ecotrin Low Dose] 81 mg PO HS 02/12/16 02/23/17 History Atorvastatin [Lipitor] 80 mg PO HS 02/12/16 02/23/17 History Calcitriol 0.5 mcg PO DAILY 02/12/16 02/23/17 History Vit C/E/Zn/Coppr/Lutein/Zeaxan 1 cap PO BID 02/12/16 02/23/17 History [Preservision Areds 2 Softgel] Temazepam [Restoril] 15 mg PO HS 07/18/16 02/23/17 History INSULIN LISPRO (HumaLOG) [humaLOG] See Protocol SQ ACHS 07/19/16 02/23/17 History predniSONE 5 mg PO DAILY tab 07/21/16 02/23/[address] [Myfortic] 360 mg PO DAILY 09/15/16 02/23/17 History Ferrous Sulfate [Feosol] 325 mg PO BID #60 tab 12/22/16 02/23/17 Rx Docusate [Colace] 200 mg PO HS PRN 01/01/17 02/23/17 History Furosemide [Lasix] 20 mg PO BID 01/01/17 02/23/17 History Midodrine HCl [ProAmatine] 5 mg PO DAILY 01/01/17 02/23/17 History Renaplex D Vitamin 1 tab PO DAILY 01/01/17 02/23/17 History Clopidogrel [Plavix] 75 mg PO DAILY #30 tab 01/10/17 02/23/17 Rx Sulfamethox-Tmp 400-80Mg [Bactrim 1 tab PO Q12HR #60 tablet 02/16/17 02/23/17 Rx SS 400-80 mg] Allergies Allergy/AdvReac Type Severity Reaction Status Date / Time codeine AdvReac Severe constipatio Verified 02/23/17 16:48 n Surgical - Exam Vital Signs Temp Pulse Resp BP Pulse Ox 98.0 F 82 16 119/49 96 02/23/17 15:34 02/23/17 15:34 02/23/17 15:34 02/23/17 15:34 02/23/17 15:34 Results - Labs 02/23/17 14:57 02/23/17 14:57 Abnormal Lab Results - Last 24 Hours (Table) 02/23/17 02/23/17 02/23/17 Range/Units 14:40 14:57 14:57 RBC 4.19 L (4.30-5.90) m/uL Hgb 11.7 L (13.0-17.5) gm/dL Hct 37.5 L (39.0-53.0) % Lymphocytes # 0.6 L (1.0-4.8) k/uL Sodium 134 L (137-145) mmol/L BUN 32 H (9-20) mg/dL Creatinine 3.30 H (0.66-1.25) mg/dL Glucose 268 H (74-99) mg/dL POC Glucose (mg/dL) 267 H (75-99) mg/dL Calcium 8.3 L (8.4-10.2) mg/dL Total Protein 4.6 L (6.3-8.2) g/dL Albumin 2.2 L (3.5-5.0) g/dL 02/23/17 Range/Units 16:58 RBC (4.30-5.90) m/uL Hgb (13.0-17.5) gm/dL Hct (39.0-53.0) % Lymphocytes # (1.0-4.8) k/uL Sodium (137-145) mmol/L BUN (9-20) mg/dL Creatinine (0.66-1.25) mg/dL Glucose (74-99) mg/dL POC Glucose (mg/dL) 178 H (75-99) mg/dL Calcium (8.4-10.2) mg/dL Total Protein (6.3-8.2) g/dL Albumin (3.5-5.0) g/dL Diabetes panel 02/23/17 Range/Units 14:57 Sodium 134 L (137-145) mmol/L Potassium 3.9 (3.5-5.1) mmol/L Chloride 100 (98-107) mmol/L Carbon Dioxide 26 (22-30) mmol/L BUN 32 H (9-20) mg/dL Creatinine 3.30 H (0.66-1.25) mg/dL Glucose 268 H (74-99) mg/dL Calcium 8.3 L (8.4-10.2) mg/dL AST 20 (17-59) U/L ALT 39 (21-72) U/L Alkaline Phosphatase 76 (38-126) U/L Total Protein 4.6 L (6.3-8.2) g/dL Albumin 2.2 L (3.5-5.0) g/dL Calcium panel 02/23/17 Range/Units 14:57 Calcium 8.3 L (8.4-10.2) mg/dL Albumin 2.2 L (3.5-5.0) g/dL Pituitary panel 02/23/17 Range/Units 14:57 Sodium 134 L (137-145) mmol/L Potassium 3.9 (3.5-5.1) mmol/L Chloride 100 (98-107) mmol/L Carbon Dioxide 26 (22-30) mmol/L BUN 32 H (9-20) mg/dL Creatinine 3.30 H (0.66-1.25) mg/dL Glucose 268 H (74-99) mg/dL Calcium 8.3 L (8.4-10.2) mg/dL Adrenal panel 02/23/17 Range/Units 14:57 Sodium 134 L (137-145) mmol/L Potassium 3.9 (3.5-5.1) mmol/L Chloride 100 (98-107) mmol/L Carbon Dioxide 26 (22-30) mmol/L BUN 32 H (9-20) mg/dL Creatinine 3.30 H (0.66-1.25) mg/dL Glucose 268 H (74-99) mg/dL Calcium 8.3 L (8.4-10.2) mg/dL Total Bilirubin 0.2 (0.2-1.3) mg/dL AST 20 (17-59) U/L ALT 39 (21-72) U/L Alkaline Phosphatase 76 (38-126) U/L Total Protein 4.6 L (6.3-8.2) g/dL Albumin 2.2 L (3.5-5.0) g/dL
[2017-02-23] MEDS: INSULIN LISPRO (humaLOG) 300 UNIT/3 ML VIAL SQ SCH ×2 (17:21→21:04)
[2017-02-23] MEDS ORDERED: MIDODRINE 5 MG TAB PO PRN (17:28)
[2017-02-23] MEDS: DIALYSIS (PERIT 2.5%) 2,000 ML 50 G/2,000 ML BAG INTRAPERIT SCH (18:00)
[2017-02-23] MEDS ORDERED: VANCOMYCIN IV PER PHARMACY 1 EACH MISC MISCELLANE PRN (18:30)
[2017-02-23] MEDS ORDERED: VANCOMYCIN 1,500 MG in SODIUM CHLORIDE 0.9% 250 ML IVPB ONE (20:00)
[2017-02-23 20:51] LABS: Glucose,Whole Blood 117 mg/dL (75-99)
[2017-02-23] MEDS: ATORVASTATIN 80 MG TAB PO SCH (21:03)
[2017-02-23] MEDS: FERROUS SULFATE 325 MG TAB PO SCH (21:04)
[2017-02-23] MEDS: HEPARIN SODIUM,PORCINE 5,000 UNIT/ML 1 ML VIAL SQ SCH (21:04)
[2017-02-23] MEDS: SODIUM BICARBONATE TAB 650 MG TAB PO SCH (21:04)
[2017-02-23] MEDS: TACROLIMUS 1 MG CAP PO SCH (21:04)
[2017-02-23] MEDS: CHOLECALCIFEROL 1,000 UNIT TAB PO SCH (21:04)
--- NOTE | 2017-02-23 22:22 | P.CONS ---
History of Present Illness - Reason for Consult Consult date: 02/23/17 - Chief Complaint Gangrene right foot - History of Present Illness Jasbir 61-year-old male who has a history of diabetes mellitus type 2 with many complications that includes end-stage renal disease. He did have a renal transplantation but that has failed. And now undergoes chronic and which were approaching hemodialysis for the renal failure. 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 The patient relates that he is doing modestly well as of late. He did have foot evaluation some toenail cutting performed. Now 3 weeks later he developed evidence of a blister onto his right foot associated with erythema and swelling to the residual second toe. With his neuropathy is not having pain but is very concerned given the left [id number] amputation for limb salvage. Patient denies any known trauma but patient was hospitalized during the summer. At that point in time he was having difficulties with volume overload. This resulted in significant edema which worsen the process to the right foot. He had a significant surgical intervention with amputation of the great and second toe. Despite the surgical intervention is been having nonhealing to the area. He is followed in the wound healing center as well as vascular surgery. He developed increasing discoloration to the lateral aspect of the right foot. Evaluation revealed evidence of severe peripheral vascular disease. The patient did present to the outpatient clinic today and was advised for admission for surgical intervention. There is evidence of bone fragments migrating out of the foot ulceration and worsening of the dry gangrenous changes to the lateral aspect of the foot. The patient also was not feeling well due to the significant infectious process. Review of Systems Jasbir 61-year-old male comfortable at this time HEENT:Denies headache or acute visual change. Denies sinus or mouth discomforts. Denies neck stiffness or pain. Denies significant oral cavity pain. Denies difficulty on swallowing. Lungs: Denies significant shortness of breath, cough, sputum production, or hemoptysis. Cardiovascular: Denies significant shortness of breath, chest pain, chest wall pain, orthopnea, dyspnea on exertion, syncope Gastrointestinal:Denies nausea, vomiting, diarrhea, constipation, hematemesis, melena, hematochezia. No no significant change of bowel habit noticed. Musculoskeletal: denies significant myalgias or arthralgias. He has a significant gangrenous changes to the right foot as per the HPI Denies new back pain. Skin: Per the HPI Neuro: Denies headache or visual change. Denies any new onset weakness or difficulty with ambulation. Denies falls or seizures. Psychiatric:Denies anxiety or depression. Endocrine: Has significant fatigue, is noted to had significant weight gain to the summer with heart failure is now better. He had a gastric bypass and has had a 200 pound weight loss Past Medical History Past Medical History: Atrial Fibrillation, Coronary Artery Disease (CAD), Heart Failure, Diabetes Mellitus, Dialysis, Deep Vein Thrombosis (DVT), GERD/Reflux, Hyperlipidemia, Hypertension, Myocardial Infarction ([place]), Osteoarthritis (OA), Pneumonia, Renal Disease, Thyroid Disorder, Vascular Disorder Additional Past Medical History / Comment(s): TAKES NO CURRENT MEDS FOR THYROID , STATES HAS ONE CURRENT KIDNEY TRANSPLANT THAT IS FAILING. HAS LEFT BELOW KNEE PROSTHESIS, ANEMIA,"RECENT BX,PT BELEIVES IT WAS THE TEMPEROL ARTERY" AND STATES HE HAS LOST THE VISON IN RT EYE SINCE, GLAUCOMA. GOES TO [facility] Last Myocardial Infarction Date:: 2009 History of Any Multi-Drug Resistant Organisms: None Reported Past Surgical History: Adenoidectomy, Bariatric Surgery, Coronary Bypass/CABG, Heart Catheterization, Tonsillectomy Additional Past Surgical History / Comment(s): bacliff fliter, kidney transplant-X2,CABG-2010 TRIPLE, gastric bypass, RT great toe amputation , LANDON CATARACTS, RIGHT carotid endarterectomy, amputation lt BKA,angioplasty to the popliteal artery and posterior left femoral artery performed by Dr. Fowler on , RECENT BX-PT BELIEVES IT WAS OF THE RT TEMPERAL ARTERY. Past Anesthesia/Blood Transfusion Reactions: No Reported Reaction Additional Past Anesthesia/Blood Transfusion Reaction / Comm: HX BLOOD TRANSFUSIONS- NO REACTIONS . Additional Psychological History / Comment(s): Single. Lives in a family home with his daughter and her 2 children. Lifeline nonsmoker. No significant alcohol use. Medically disabled. Pet dog. No experience. Smoking Status: Never smoker Smoking Status: Never smoker - Past Family History Father Family Medical History: Diabetes Mellitus, Dialysis Additional Family Medical History / Comment(s): "big heart", bilat BKA Mother Family Medical History: Cancer Additional Family Medical History / Comment(s): colon Medications and Allergies Home Medications and Allergies Comment(s): Current Medications Atorvastatin Calcium (Lipitor) 80 mg PO HS [facility] Last Admin: 02/23/17 21:03 Dose: 80 mg Calcitriol (Rocaltrol) 0.5 mcg PO DAILY@1200 [facility] Cholecalciferol (Vitamin D3) 5,000 unit PO HS [facility] Last Admin: 02/23/17 21:04 Dose: 5,000 unit Docusate Sodium (Colace) 200 mg PO HS PRN PRN Reason: Constipation Ferrous Sulfate (Feosol) 325 mg PO BID [facility] Last Admin: 02/23/17 21:04 Dose: 325 mg Furosemide (Lasix) 20 mg PO BID@0900,1600 [facility] Heparin Sodium (Porcine) (Heparin) 5,000 unit SQ Q12HR [facility] Last Admin: 02/23/17 21:04 Dose: Not Given Sodium Chloride (Saline 0.9%) 1,000 mls @ 50 mls/hr IV .Q20H [facility] Last Admin: 02/23/17 17:22 Dose: 50 mls/hr Peritoneal Dialysis Solution (Delflex With 1.5% Dextrose (2,000 Ml)) 30 g in 2, 000 mls @ 0 mls/hr INTRAPERIT 0000 [facility]; As Directed PRN Reason: Protocol Peritoneal Dialysis Solution (Delflex With 2.5% Dextrose (2,000 Ml)) 50 g in 2, 000 mls @ 0 mls/hr INTRAPERIT 0600,1200,1800 [facility]; As Directed PRN Reason: Protocol Last Admin: 02/23/17 18:00 Dose: 2,000 mls/hr Ceftazidime 0.5 gm/ Sodium (Chloride) 50 mls @ 100 mls/hr IVPB DAILY [facility] Insulin Human Lispro (Humalog) 0 unit SQ ACHS [facility] PRN Reason: Protocol Last Admin: 02/23/17 21:04 Dose: Not Given Magnesium Oxide (Mag-Ox) 400 mg PO DAILY@1200 [facility] Midodrine (Proamatine) 5 mg PO DAILY [facility] Midodrine (Proamatine) 5 mg PO DAILY PRN PRN Reason: BLOOD PRESSURE UNDER 110 Miscellaneous Information (Pharmacy To Dose Iv Vancomycin) 1 each MISCELLANE DIRECTED PRN PRN Reason: Per Protocol Multivit/Ca Carb/B Cmplx/FA/Prenat (Nephrocaps) 1 each PO DAILY@1200 [facility] Multivitamins/Minerals (Ivite) 1 each PO DAILY@1200 [facility] Mycophenolate Sodium (Myfortic) 360 mg PO DAILY [facility] Pantoprazole Sodium (Protonix) 40 mg PO AC-[id number] [facility] Prednisone () 5 mg PO DAILY [facility] Sodium Bicarbonate (Sodium Bicarbonate Tab) 650 mg PO BID [facility] Last Admin: 02/23/17 21:04 Dose: 650 mg Tacrolimus (Prograf) 1 mg PO BID [facility] Last Admin: 02/23/17 21:04 Dose: 1 mg Temazepam (Restoril) 15 mg PO HS PRN PRN Reason: Insomnia Home Medications Medication Instructions Recorded Confirmed Type Cholecalciferol [Vitamin D3] 5,000 mg PO HS 05/17/14 02/23/17 History Sodium Bicarbonate Tab 650 mg PO BID 05/17/14 02/23/17 History Tacrolimus [Prograf] 1 mg PO BID 12/06/14 02/23/17 History Magnesium Gluconate [Magonate] 500 mg PO DAILY 02/01/15 02/23/17 History Aspirin EC [Ecotrin Low Dose] 81 mg PO HS 02/12/16 02/23/17 History Atorvastatin [Lipitor] 80 mg PO HS 02/12/16 02/23/17 History Calcitriol 0.5 mcg PO DAILY 02/12/16 02/23/17 History Vit C/E/Zn/Coppr/Lutein/Zeaxan 1 cap PO BID 02/12/16 02/23/17 History [Preservision Areds 2 Softgel] Temazepam [Restoril] 15 mg PO HS 07/18/16 02/23/17 History INSULIN LISPRO (HumaLOG) [humaLOG] See Protocol SQ ACHS 07/19/16 02/23/17 History predniSONE 5 mg PO DAILY tab 07/21/16 02/23/[address] [Myfortic] 360 mg PO DAILY 09/15/16 02/23/17 History Ferrous Sulfate [Feosol] 325 mg PO BID #60 tab 12/22/16 02/23/17 Rx Docusate [Colace] 200 mg PO HS PRN 01/01/17 02/23/17 History Furosemide [Lasix] 20 mg PO BID 01/01/17 02/23/17 History Midodrine HCl [ProAmatine] 5 mg PO DAILY 01/01/17 02/23/17 History Renaplex D Vitamin 1 tab PO DAILY 01/01/17 02/23/17 History Clopidogrel [Plavix] 75 mg PO DAILY #30 tab 01/10/17 02/23/17 Rx Sulfamethox-Tmp 400-80Mg [Bactrim 1 tab PO Q12HR #60 tablet 02/16/17 02/23/17 Rx SS 400-80 mg] Allergies Allergy/AdvReac Type Severity Reaction Status Date / Time codeine AdvReac Severe constipatio Verified 02/23/17 16:48 n Physical Exam Vitals: Vital Signs Temp Pulse Pulse Resp BP BP Pulse Ox 02/23/17 18:34 98.0 F 86 14 123/65 98 02/23/17 17:54 97.6 F 83 16 92/37 98 02/23/17 15:34 98.0 F 82 16 119/49 96 Intake and Output 02/23/17 02/23/17 02/23/17 06:59 14:59 22:59 Other: Voiding Method Urinal # Voids 0 Weight 81.6 kg Patient Weight 02/24/17 06:59 Weight 81.6 kg Pleasant 61-year-old male presents to Hospital with significant change to his right foot. HEENT: Anicteric conjunctiva are pink and moist nasal mucosa grossly intact without significant lesions, there is no thrush. Neck: The neck is supple without significant lymphadenopathy or thyromegaly. Lungs: Good bilateral air entry without significant crackles or wheezing. There is no significant bronchial sounds. There is no egophony or dullness. Heart: Irregular with an audible S1 and S2. No S3 soft S4, 2/6 systolic murmur left sternal border is holosystolic. Abdomen: Positive bowel sounds soft and nontender without palpable masses or organomegaly. There was no guarding or rebound. Extremities: The prior shunt to the left arm is only minimal thrill and apparently is not functional for hemodialysis. The left lower extremity below the knee amputation residual limb is in good order. There is no erythema or crepitance or fluctuance. He wears a rehabilitation clerk and has no edema or lesions. The right lower extremity shows evidence the gangrenous changes please the nursing residential service technician for the extensive gangrenous changes of the prior amputation site in the lateral aspect of the foot. Necrotic bone was easily removed from the foot today. Neuro: Awake alert oriented to person place and time. He has dense severe peripheral neuropathy Results CBC & Chem 7: 02/23/17 14:57 02/23/17 14:57 Labs: Abnormal Lab Results - Last 24 Hours (Table) 02/23/17 02/23/17 02/23/17 Range/Units 14:40 14:57 14:57 RBC 4.19 L (4.30-5.90) m/uL Hgb 11.7 L (13.0-17.5) gm/dL Hct 37.5 L (39.0-53.0) % Lymphocytes # 0.6 L (1.0-4.8) k/uL Sodium 134 L (137-145) mmol/L BUN 32 H (9-20) mg/dL Creatinine 3.30 H (0.66-1.25) mg/dL Glucose 268 H (74-99) mg/dL POC Glucose (mg/dL) 267 H (75-99) mg/dL Calcium 8.3 L (8.4-10.2) mg/dL Total Protein 4.6 L (6.3-8.2) g/dL Albumin 2.2 L (3.5-5.0) g/dL 02/23/17 02/23/17 Range/Units 16:58 20:42 RBC (4.30-5.90) m/uL Hgb (13.0-17.5) gm/dL Hct (39.0-53.0) % Lymphocytes # (1.0-4.8) k/uL Sodium (137-145) mmol/L BUN (9-20) mg/dL Creatinine (0.66-1.25) mg/dL Glucose (74-99) mg/dL POC Glucose (mg/dL) 178 H 117 H (75-99) mg/dL Calcium (8.4-10.2) mg/dL Total Protein (6.3-8.2) g/dL Albumin (3.5-5.0) g/dL Microbiology - Last 24 Hours (Table) 02/23/17 14:50 Anaerobic Culture - Preliminary Foot - Right 02/23/17 14:50 Wound Culture - Preliminary Foot - Right Laboratory Results WBC 7.9 k/uL (3.8-10.6) 02/23/17 14:57 RBC 4.19 m/uL (4.30-5.90) L 02/23/17 14:57 Hgb 11.7 gm/dL (13.0-17.5) L 02/23/17 14:57 Hct 37.5 % (39.0-53.0) L 02/23/17 14:57 MCV 89.4 fL (80.0-100.0) D 02/23/17 14:57 MCH 27.8 pg (25.0-35.0) 02/23/17 14:57 MCHC 31.1 g/dL (31.0-37.0) 02/23/17 14:57 RDW 14.3 % (11.5-15.5) 02/23/17 14:57 Plt Count 307 k/uL (150-450) 02/23/17 14:57 Neutrophils % 86 % 02/23/17 14:57 Lymphocytes % 7 % 02/23/17 14:57 Monocytes % 5 % 02/23/17 14:57 Eosinophils % 0 % 02/23/17 14:57 Basophils % 0 % 02/23/17 14:57 Neutrophils # 6.8 k/uL (1.3-7.7) 02/23/17 14:57 Lymphocytes # 0.6 k/uL (1.0-4.8) L 02/23/17 14:57 Monocytes # 0.4 k/uL (0-1.0) 02/23/17 14:57 Eosinophils # 0.0 k/uL (0-0.7) 02/23/17 14:57 Basophils # 0.0 k/uL (0-0.2) 02/23/17 14:57 Hypochromasia Moderate 02/23/17 14:57 Sodium 134 mmol/L (137-145) L 02/23/17 14:57 Potassium 3.9 mmol/L (3.5-5.1) 02/23/17 14:57 Chloride 100 mmol/L (98-107) 02/23/17 14:57 Carbon Dioxide 26 mmol/L (22-30) 02/23/17 14:57 Anion Gap 8 mmol/L 02/23/17 14:57 BUN 32 mg/dL (9-20) H 02/23/17 14:57 Creatinine 3.30 mg/dL (0.66-1.25) H 02/23/17 14:57 Est GFR (MDRD) Af Amer 23 (>60 ml/min/1.73 sqM) 02/23/17 14:57 Est GFR (MDRD) Non-Af 19 (>60 ml/min/1.73 sqM) 02/23/17 14:57 Glucose 268 mg/dL (74-99) H 02/23/17 14:57 POC Glucose (mg/dL) 117 mg/dL (75-99) H 02/23/17 20:42 POC Glu Project Planner Amina Singh 02/23/17 20:42 Calcium 8.3 mg/dL (8.4-10.2) L 02/23/17 14:57 Total Bilirubin 0.2 mg/dL (0.2-1.3) 02/23/17 14:57 AST 20 U/L (17-59) 02/23/17 14:57 ALT 39 U/L (21-72) 02/23/17 14:57 Alkaline Phosphatase 76 U/L (38-126) 02/23/17 14:57 Total Protein 4.6 g/dL (6.3-8.2) L 02/23/17 14:57 Albumin 2.2 g/dL (3.5-5.0) L 02/23/17 14:57 Microbiology 02/23/17 14:50 Foot - Right Anaerobic Culture - Preliminary 02/23/17 14:50 Foot - Right Wound Culture - Preliminary Assessment and Plan (1) Diabetic ulcer of right foot associated with diabetes mellitus due to underlying condition, with necrosis of bone Status: Acute (2) Gangrene of right foot Narrative/Plan: 61-year-old male presents to the office today with evidence of the marked worsening to the diabetic foot ulceration of his right foot. There is evidence of worsening gangrenous changes. Necrotic bone was exposed and easily peeled out of the base of the ulceration. There is also worsened with dry gangrenous changes to the lateral aspect of the foot. The case is discussed with the vascular surgeon. The patient's primary care physician was contacted and ranges were made for admission. The patient has now been admitted. He will be cleared by cardiology and then proceed to a below-knee amputation in the near future. He has had extensive vascular evaluations performed recently. He's also had some procedures the failed to allow significant improvement of the foot. The patient at this time relates he looks forward to amputation to improve his quality of life. Hopefully they gets up on the 2 prosthesis he will do relatively well. As noted he had a gastric bypass procedure he's lost more than 200 pounds and this has allowed him to be quite mobile with his left leg prosthesis. He is highly motivated and hopefully will be able to ambulate with 2 prosthesis. Antibiotic therapy at this point in time as directed for the most recent culture vancomycin and ceftazidime are being utilized for now. Follow-up cultures are in process. Leukocytosis due to the gangrenous changes. Status: Acute (3) Leukocytosis Status: Acute (4) End-stage renal disease on peritoneal dialysis Status: Acute
[2017-02-23] MEDS: SODIUM CHLORIDE 0.9% 1,000 ML IV SCH (22:51)
[2017-02-24] MEDS: TEMAZEPAM 15 MG CAP PO PRN ×2 (00:29→23:31)
[2017-02-24] MEDS: DIALYSIS (PERIT 1.5%) 2,000 ML 30 G/2,000 ML BAG INTRAPERIT SCH ×2 (00:29→23:32)
[2017-02-24] MEDS: DIALYSIS (PERIT 2.5%) 2,000 ML 50 G/2,000 ML BAG INTRAPERIT SCH ×3 (05:52→18:25)
[2017-02-24 07:57] LABS: Glucose,Whole Blood 134 mg/dL (75-99)
[2017-02-24] MEDS: INSULIN LISPRO (humaLOG) 300 UNIT/3 ML VIAL SQ SCH ×4 (08:15→20:55)
[2017-02-24] MEDS: PANTOPRAZOLE 40 MG TABLET PO SCH (08:16)
[2017-02-24] MEDS: FERROUS SULFATE 325 MG TAB PO SCH ×2 (08:16→20:54)
[2017-02-24] MEDS: HEPARIN SODIUM,PORCINE 5,000 UNIT/ML 1 ML VIAL SQ SCH ×2 (08:17→20:53)
[2017-02-24] MEDS: FUROSEMIDE 20 MG TAB PO SCH ×2 (08:17→17:20)
[2017-02-24] MEDS: MYCOPHENOLATE SODIUM DR 180 MG TABLET.DR PO SCH (08:18)
[2017-02-24] MEDS: MIDODRINE 5 MG TAB PO SCH (08:18)
[2017-02-24] MEDS: predniSONE 5 MG TAB PO SCH (08:18)
[2017-02-24] MEDS: SODIUM BICARBONATE TAB 650 MG TAB PO SCH ×2 (08:18→20:55)
[2017-02-24] MEDS: TACROLIMUS 1 MG CAP PO SCH ×2 (08:18→20:55)
[2017-02-24 09:16] LABS: Basophils % (A) 1 %; CH 26.7; CHCM 30.1; Eosinophils % (A) 1 %; HCT 37.2 % (39.0-53.0); HDW 2.81; HGB 11.5 gm/dL (13.0-17.5); Hypochromasia Marked; Luc # (Auto) 0.12; Luc % (Auto) 2; Lymphocytes # (A) 1.1 k/uL (1.0-4.8); Lymphocytes % (A) 16 %; MCH 27.6 pg (25.0-35.0); MCV 88.9 fL (80.0-100.0); Mean Platelet Volume 7.8; Monocytes # (A) 0.5 k/uL (0-1.0); Monocytes % (A) 7 %; Neutrophils # (A) 5.1 k/uL (1.3-7.7); Neutrophils % (A) 74 %; RBC 4.18 m/uL (4.30-5.90); RDW 14.4 % (11.5-15.5); WBC 6.9 k/uL (3.8-10.6); WBC (Perox) 7.06
[2017-02-24 09:21] LABS: Calcium 8.4 mg/dL (8.4-10.2); Potassium 4.3 mmol/L (3.5-5.1); Total Bilirubin 0.3 mg/dL (0.2-1.3); Total Protein 4.6 g/dL (6.3-8.2)
--- NOTE | 2017-02-24 10:46 | P.NPCON ---
History of Present Illness - Reason for Consult end stage renal disease - History of Present Illness Reason for consultation: End-stage renal disease History of present illness: Patient is a 61-year-old male seen in renal consultation for end-stage renal disease. He is maintained on peritoneal dialysis. He had a kidney transplant in the past which failed and was subsequently started on peritoneal dialysis. Immunosuppression is being weaned off as an outpatient. Patient presented to the hospital with right foot necrotic gangrene. Patient noted foul odor with black discoloration on his right foot and was directly admitted to the hospital. He scheduled to undergo a right [id number] amputation this admission. He has undergone right toe amputations in January 2017. He also had a tibial stent placed by cardiology. He denies any problems with dialysis. States dialysate has been clear. No abdominal pain. No vomiting or diarrhea. Denies chest pain or shortness of breath. Hemodynamically stable. Vital signs are stable. General: The patient appeared well nourished and normally developed. HEENT: Head exam is unremarkable. Neck is without jugular venous distension. LUNGS: Lungs are clear to auscultation and percussion. Breath sounds decreased. HEART: Rate and Rhythm are regular. First and second heart sounds normal. No murmurs, rubs or gallops. ABDOMEN: Abdominal exam reveals normal bowel sounds. Non-tender and non- distended. No evidence of peritonitis. EXTREMITITES: No clubbing, cyanosis, or edema. Right foot wrapped. No obvious drainage noted. Left below the knee amputation noted. Past Medical History Past Medical History: Atrial Fibrillation, Coronary Artery Disease (CAD), Heart Failure, Diabetes Mellitus, Dialysis, Deep Vein Thrombosis (DVT), GERD/Reflux, Hyperlipidemia, Hypertension, Myocardial Infarction ([place]), Osteoarthritis (OA), Pneumonia, Renal Disease, Thyroid Disorder, Vascular Disorder Additional Past Medical History / Comment(s): TAKES NO CURRENT MEDS FOR THYROID , STATES HAS ONE CURRENT KIDNEY TRANSPLANT THAT IS FAILING. HAS LEFT BELOW KNEE PROSTHESIS, ANEMIA,"RECENT BX,PT BELEIVES IT WAS THE TEMPEROL ARTERY" AND STATES HE HAS LOST THE VISON IN RT EYE SINCE, GLAUCOMA. GOES TO [facility] Last Myocardial Infarction Date:: 2009 History of Any Multi-Drug Resistant Organisms: None Reported Past Surgical History: Adenoidectomy, Bariatric Surgery, Coronary Bypass/CABG, Heart Catheterization, Tonsillectomy Additional Past Surgical History / Comment(s): jamarcus fliter, kidney transplant-X2,CABG-2010 TRIPLE, gastric bypass, RT great toe amputation , [employer] CATARACTS, RIGHT carotid endarterectomy, amputation lt BKA,angioplasty to the popliteal artery and posterior left femoral artery performed by Dr. Fowler on , RECENT BX-PT BELIEVES IT WAS OF THE RT TEMPERAL ARTERY. Past Anesthesia/Blood Transfusion Reactions: No Reported Reaction Additional Past Anesthesia/Blood Transfusion Reaction / Comment(s): HX BLOOD TRANSFUSIONS- NO REACTIONS . Additional Psychological History / Comment(s): Single. Lives in a family home with his daughter and her 2 children. Lifeline nonsmoker. No significant alcohol use. Medically disabled. Pet dog. No experience. Smoking Status: Never smoker Smoking Status: Never smoker - Past Family History Father Family Medical History: Diabetes Mellitus, Dialysis Additional Family Medical History / Comment(s): "big heart", bilat BKA Mother Family Medical History: Cancer Additional Family Medical History / Comment(s): colon Medications and Allergies Home Medications Medication Instructions Recorded Confirmed Type Cholecalciferol [Vitamin D3] 5,000 mg PO HS 05/17/14 02/23/17 History Sodium Bicarbonate Tab 650 mg PO BID 05/17/14 02/23/17 History Tacrolimus [Prograf] 1 mg PO BID 12/06/14 02/23/17 History Magnesium Gluconate [Magonate] 500 mg PO DAILY 02/01/15 02/23/17 History Aspirin EC [Ecotrin Low Dose] 81 mg PO HS 02/12/16 02/23/17 History Atorvastatin [Lipitor] 80 mg PO HS 02/12/16 02/23/17 History Calcitriol 0.5 mcg PO DAILY 02/12/16 02/23/17 History Vit C/E/Zn/Coppr/Lutein/Zeaxan 1 cap PO BID 02/12/16 02/23/17 History [Preservision Areds 2 Softgel] Temazepam [Restoril] 15 mg PO HS 07/18/16 02/23/17 History INSULIN LISPRO (HumaLOG) [humaLOG] See Protocol SQ ACHS 07/19/16 02/23/17 History predniSONE 5 mg PO DAILY tab 07/21/16 02/23/[address] [Myfortic] 360 mg PO DAILY 09/15/16 02/23/17 History Ferrous Sulfate [Feosol] 325 mg PO BID #60 tab 12/22/16 02/23/17 Rx Docusate [Colace] 200 mg PO HS PRN 01/01/17 02/23/17 History Furosemide [Lasix] 20 mg PO BID 01/01/17 02/23/17 History Midodrine HCl [ProAmatine] 5 mg PO DAILY 01/01/17 02/23/17 History Renaplex D Vitamin 1 tab PO DAILY 01/01/17 02/23/17 History Clopidogrel [Plavix] 75 mg PO DAILY #30 tab 01/10/17 02/23/17 Rx Sulfamethox-Tmp 400-80Mg [Bactrim 1 tab PO Q12HR #60 tablet 02/16/17 02/23/17 Rx SS 400-80 mg] Allergies Allergy/AdvReac Type Severity Reaction Status Date / Time codeine AdvReac Severe constipatio Verified 02/23/17 16:48 n Physical Exam Vitals: Vital Signs Temp Pulse Pulse Pulse Resp BP BP 02/24/17 08:00 86 14 02/24/17 07:00 98.2 F 84 14 99/67 02/24/17 06:26 97.6 F 80 16 126/74 02/24/17 00:32 98.1 F 84 16 120/62 02/23/17 23:00 99.7 F H 84 14 142/83 02/23/17 18:34 98.0 F 86 14 123/65 02/23/17 17:54 97.6 F 83 16 92/37 02/23/17 15:34 98.0 F 82 16 119/49 Pulse Ox 02/24/17 08:00 02/24/17 07:00 97 02/24/17 06:26 97 02/24/17 00:32 98 02/23/17 23:00 96 02/23/17 18:34 98 02/23/17 17:54 98 02/23/17 15:34 96 Intake and Output 02/23/17 02/24/17 02/24/17 22:59 06:59 14:59 Other: Voiding Method Urinal Toilet # Voids 0 0 Weight 81.6 kg 81.5 kg 81.5 kg Patient Weight 02/25/17 06:59 Weight 81.5 kg Results - Lab Results Most recent lab results Calcium 8.4 mg/dL (8.4-10.2) 02/24/17 08:27 02/24/17 08:27 02/24/17 08:27 Assessment and Plan Plan: Assessment: #1. End-stage renal disease maintained on peritoneal dialysis. #2. Right foot gangrene scheduled for below knee amputation this admission. #3. History of donor renal allograft from [facility] in 2010. Now being weaned off immunosuppression. #4. History of left below the knee amputation. #5. Diabetes mellitus. Plan: Continue with peritoneal dialysis exchanges with 2 L every 6 hours alternating with 1.5 and 2.5% solution. Antibiotics per infectious disease recommendations. Vascular surgery following. Check phosphorus level. Thank you for the consultation. I will continue to follow the patient with you during his hospital stay.
[2017-02-24] MEDS: CALCITRIOL 0.25 MCG CAP PO SCH (12:09)
[2017-02-24] MEDS: VIT A,C & E-LUTEIN-MINERALS 1 EACH TAB PO SCH (12:11)
[2017-02-24] MEDS: FOLIC ACID-VIT B COMPLEX-VIT C 1 CAP PO SCH (12:11)
[2017-02-24] MEDS: MAGNESIUM OXIDE 400 MG TAB PO SCH (12:12)
[2017-02-24 12:49] LABS: Glucose,Whole Blood 182 mg/dL (75-99)
[2017-02-24] MEDS ORDERED: VANCOMYCIN 1,500 MG in SODIUM CHLORIDE 0.9% 250 ML IVPB ONE (13:30)
--- NOTE | 2017-02-24 14:05 | P.PN ---
Subjective This is a 61-year-old male with a known history of chronic renal failure with right kidney transplant on peritoneal dialysis. Also has a history of coronary artery disease with previous coronary artery bypass grafting, atrial fibrillation, DVT of the lower extremity with a Melissa filter placed, hypertension and hyperlipidemia. diabetes mellitus type 2, peripheral vascular disease, left BKA, previous hospital admission in January with necrosis of the right second and third toe requiring amputation of those toes on 01/09/2017. Patient also had angioplasty and stent placement to the right anterior tibial artery by cardiology during that admission. Since that admission in January he has had issues with that right foot. He has necrotic tissue on the pad of the foot. There is also some necrotic changes along the lateral aspect of the foot. The posterior part of the foot is red and warm. There is a follow odor present per patient. Patient noted changes of the last 2 weeks. He's been following up with Dr. Nino in the wound care center. He reports he has been on Bactrim in the outpatient setting. Patient was at Dr. Nino office for routine visit and was told to go see Dr. Mosquera and be directly admitted to the hospital for possible amputation of the foot. Patient is also noted some discharge and follow odor from the open area of the ulcer on top of his foot. Patient denies any fever or chills or sweats. Denies any nausea or vomiting. Denies any bowel movement changes or urinary symptoms. 02/24/2017 patient is alert and oriented pain is well controlled he is being evaluated by cardiology for surgical clearance he denies any chest pain or shortness of breath there is no nausea or vomiting no abdominal pain no diarrhea or constipation Objective - Vital Signs Vital signs: Vital Signs Temp 98.2 F 02/24/17 12:02 Pulse 72 02/24/17 12:02 Resp 18 02/24/17 12:02 BP 101/54 02/24/17 12:02 Pulse Ox 96 02/24/17 12:02 Intake & Output 02/23/17 02/24/17 02/24/17 18:59 06:59 18:59 Weight 81.6 kg 81.5 kg 81.5 kg Other: Voiding Method Urinal Toilet # Voids 0 - Exam In general patient is alert and oriented in no apparent distress HEENT head normocephalic and atraumatic Neck is supple no JVD no goiter no lymphadenopathy Chest exam is clear to auscultation no crackles no wheezing Cardiac exam reveals regular heart sounds S1 and S2 no gallops no murmurs Abdomen is soft nontender no organomegaly with normal bowel sounds Extremity exam reveals minimal edema, nonhealing ulcer on the right foot there is previous below knee amputation on the left - Labs CBC & Chem 7: 02/24/17 08:27 02/24/17 08:27 Labs: Abnormal Lab Results - Last 24 Hours (Table) 02/23/17 02/23/17 02/23/17 Range/Units 14:40 14:57 14:57 RBC 4.19 L (4.30-5.90) m/uL Hgb 11.7 L (13.0-17.5) gm/dL Hct 37.5 L (39.0-53.0) % Lymphocytes # 0.6 L (1.0-4.8) k/uL Sodium 134 L (137-145) mmol/L BUN 32 H (9-20) mg/dL Creatinine 3.30 H (0.66-1.25) mg/dL Glucose 268 H (74-99) mg/dL POC Glucose (mg/dL) 267 H (75-99) mg/dL Calcium 8.3 L (8.4-10.2) mg/dL Total Protein 4.6 L (6.3-8.2) g/dL Albumin 2.2 L (3.5-5.0) g/dL 02/23/17 02/23/17 02/24/17 Range/Units 16:58 20:42 07:27 RBC (4.30-5.90) m/uL Hgb (13.0-17.5) gm/dL Hct (39.0-53.0) % Lymphocytes # (1.0-4.8) k/uL Sodium (137-145) mmol/L BUN (9-20) mg/dL Creatinine (0.66-1.25) mg/dL Glucose (74-99) mg/dL POC Glucose (mg/dL) 178 H 117 H 134 H (75-99) mg/dL Calcium (8.4-10.2) mg/dL Total Protein (6.3-8.2) g/dL Albumin (3.5-5.0) g/dL 02/24/17 02/24/17 02/24/17 Range/Units 08:27 08:27 12:11 RBC 4.18 L (4.30-5.90) m/uL Hgb 11.5 L (13.0-17.5) gm/dL Hct 37.2 L (39.0-53.0) % Lymphocytes # (1.0-4.8) k/uL Sodium 135 L (137-145) mmol/L BUN 29 H (9-20) mg/dL Creatinine 3.24 H (0.66-1.25) mg/dL Glucose 203 H (74-99) mg/dL POC Glucose (mg/dL) 182 H (75-99) mg/dL Calcium (8.4-10.2) mg/dL Total Protein 4.6 L (6.3-8.2) g/dL Albumin 2.3 L (3.5-5.0) g/dL Microbiology - Last 24 Hours (Table) 02/23/17 14:50 Gram Stain - Preliminary Foot - Right Wound Culture - Preliminary 02/23/17 14:50 Anaerobic Culture - Preliminary Foot - Right Assessment and Plan Plan: 1. Right foot is ulcer with necrotic skin changes: Had been on Bactrim outpatient with no improvement. Consult infectious disease. Wound cultures ordered. Antibiotics per infectious disease. 2. Known diabetic ulcer of the right foot with peripheral vascular disease status post angioplasty and stent placement to the right anterior tibial artery by cardiology in January 2017. Patient is also status post amputation of the right second and third toe on 01/09/2017 3. Chronic kidney disease stage V with history of right kidney transplant secondary to his diabetes mellitus. Patient currently on peritoneal dialysis. Consult from nephrology placed 4. Diabetes mellitus type 2. We'll place patient on Humalog sliding scale. Previous hemoglobin A1c was 4.7 5. Chronic atrial fibrillation: Coumadin discontinued on last admission 6. History of peripheral vascular disease secondary to his diabetes mellitus and required a left below the knee amputation 7. Chronic systolic CHF: No evidence of exacerbation. Echo from September 2016 shows an EF of 45-50% 8. Anemia of chronic kidney disease with iron deficiency anemia. 9. History of coronary artery disease with previous coronary artery bypass grafting
--- NOTE | 2017-02-24 14:55 | P.CRDCN ---
History of Present Illness History of present illness: Patient interviewed and examined Resting comfortably in bed Denies any chest discomfort undue shortness of breath dizziness lightheadedness or palpitations Multiple risk factors for advanced atherosclerosis, awaiting amputation for severe peripheral vascular disease Advanced kidney disease on peritoneal dialysis Suggest Continue beta blockers, patient has a cardiac myopathy Continue statins and aspirin May hold Plavix Proceed with surgery as clinically indicated Please see full dictation by nurse practitioner Past Medical History Past Medical History: Atrial Fibrillation, Coronary Artery Disease (CAD), Heart Failure, Diabetes Mellitus, Dialysis, Deep Vein Thrombosis (DVT), GERD/Reflux, Hyperlipidemia, Hypertension, Myocardial Infarction (NV), Osteoarthritis (OA), Pneumonia, Renal Disease, Thyroid Disorder, Vascular Disorder Additional Past Medical History / Comment(s): TAKES NO CURRENT MEDS FOR THYROID , STATES HAS ONE CURRENT KIDNEY TRANSPLANT THAT IS FAILING. HAS LEFT BELOW KNEE PROSTHESIS, ANEMIA,"RECENT BX,PT BELEIVES IT WAS THE TEMPEROL ARTERY" AND STATES HE HAS LOST THE VISON IN RT EYE SINCE, GLAUCOMA. GOES TO [facility] Last Myocardial Infarction Date:: 2009 History of Any Multi-Drug Resistant Organisms: None Reported Past Surgical History: Adenoidectomy, Bariatric Surgery, Coronary Bypass/CABG, Heart Catheterization, Tonsillectomy Additional Past Surgical History / Comment(s): grampian fliter, kidney transplant-X2,CABG-2010 TRIPLE, gastric bypass, RT great toe amputation , [facility], RIGHT carotid endarterectomy, amputation lt BKA,angioplasty to the popliteal artery and posterior left femoral artery performed by Dr. Fowler on , RECENT BX-PT BELIEVES IT WAS OF THE RT TEMPERAL ARTERY. Past Anesthesia/Blood Transfusion Reactions: No Reported Reaction Additional Past Anesthesia/Blood Transfusion Reaction / Comment(s): HX BLOOD TRANSFUSIONS- NO REACTIONS . Additional Psychological History / Comment(s): Single. Lives in a family home with his daughter and her 2 children. [employer] nonsmoker. No significant alcohol use. Medically disabled. Pet dog. No experience. Smoking Status: Never smoker Smoking Status: Never smoker - Past Family History Father Family Medical History: Diabetes Mellitus, Dialysis Additional Family Medical History / Comment(s): "big heart", bilat BKA Mother Family Medical History: Cancer Additional Family Medical History / Comment(s): colon Medications and Allergies Home Medications Medication Instructions Recorded Confirmed Type Cholecalciferol [Vitamin D3] 5,000 mg PO HS 05/17/14 02/23/17 History Sodium Bicarbonate Tab 650 mg PO BID 05/17/14 02/23/17 History Tacrolimus [Prograf] 1 mg PO BID 12/06/14 02/23/17 History Magnesium Gluconate [Magonate] 500 mg PO DAILY 02/01/15 02/23/17 History Aspirin EC [Ecotrin Low Dose] 81 mg PO HS 02/12/16 02/23/17 History Atorvastatin [Lipitor] 80 mg PO HS 02/12/16 02/23/17 History Calcitriol 0.5 mcg PO DAILY 02/12/16 02/23/17 History Vit C/E/Zn/Coppr/Lutein/Zeaxan 1 cap PO BID 02/12/16 02/23/17 History [Preservision Areds 2 Softgel] Temazepam [Restoril] 15 mg PO HS 07/18/16 02/23/17 History INSULIN LISPRO (HumaLOG) [humaLOG] See Protocol SQ ACHS 07/19/16 02/23/17 History predniSONE 5 mg PO DAILY tab 07/21/16 02/23/[address] [Myfortic] 360 mg PO DAILY 09/15/16 02/23/17 History Ferrous Sulfate [Feosol] 325 mg PO BID #60 tab 12/22/16 02/23/17 Rx Docusate [Colace] 200 mg PO HS PRN 01/01/17 02/23/17 History Furosemide [Lasix] 20 mg PO BID 01/01/17 02/23/17 History Midodrine HCl [ProAmatine] 5 mg PO DAILY 01/01/17 02/23/17 History Renaplex D Vitamin 1 tab PO DAILY 01/01/17 02/23/17 History Clopidogrel [Plavix] 75 mg PO DAILY #30 tab 01/10/17 02/23/17 Rx Sulfamethox-Tmp 400-80Mg [Bactrim 1 tab PO Q12HR #60 tablet 02/16/17 02/23/17 Rx SS 400-80 mg] Allergies Allergy/AdvReac Type Severity Reaction Status Date / Time codeine AdvReac Severe constipatio Verified 02/23/17 16:48 n Physical Exam Vitals: Vital Signs Temp Pulse Pulse Pulse Resp BP BP 02/24/17 12:02 98.2 F 72 18 101/54 02/24/17 08:00 86 14 02/24/17 07:00 98.2 F 84 14 99/67 02/24/17 06:26 97.6 F 80 16 126/74 02/24/17 00:32 98.1 F 84 16 120/62 02/23/17 23:00 99.7 F H 84 14 142/83 02/23/17 18:34 98.0 F 86 14 123/65 02/23/17 17:54 97.6 F 83 16 92/37 02/23/17 15:34 98.0 F 82 16 119/49 Pulse Ox 02/24/17 12:02 96 02/24/17 08:00 02/24/17 07:00 97 02/24/17 06:26 97 02/24/17 00:32 98 02/23/17 23:00 96 02/23/17 18:34 98 02/23/17 17:54 98 02/23/17 15:34 96 Intake and Output 02/23/17 02/24/17 02/24/17 22:59 06:59 14:59 Intake Total 240 Balance 240 Intake: Oral 240 Other: Voiding Method Urinal Toilet # Voids 0 0 0 # Bowel Movements 0 Weight 81.6 kg 81.5 kg 81.5 kg Patient Weight 02/25/17 06:59 Weight 81.5 kg Results 02/24/17 08:27 02/24/17 08:27 Cardiac Enzymes 02/23/17 02/24/17 Range/Units 14:57 08:27 AST 20 22 (17-59) U/L CBC 02/23/17 02/24/17 Range/Units 14:57 08:27 WBC 7.9 6.9 (3.8-10.6) k/uL RBC 4.19 L 4.18 L (4.30-5.90) m/uL Hgb 11.7 L 11.5 L (13.0-17.5) gm/dL Hct 37.5 L 37.2 L (39.0-53.0) % Plt Count 307 346 (150-450) k/uL Comprehensive Metabolic Panel 02/23/17 02/24/17 Range/Units 14:57 08:27 Sodium 134 L 135 L (137-145) mmol/L Potassium 3.9 4.3 (3.5-5.1) mmol/L Chloride 100 101 (98-107) mmol/L Carbon Dioxide 26 25 (22-30) mmol/L BUN 32 H 29 H (9-20) mg/dL Creatinine 3.30 H 3.24 H (0.66-1.25) mg/dL Glucose 268 H 203 H (74-99) mg/dL Calcium 8.3 L 8.4 (8.4-10.2) mg/dL AST 20 22 (17-59) U/L ALT 39 37 (21-72) U/L Alkaline Phosphatase 76 73 (38-126) U/L Total Protein 4.6 L 4.6 L (6.3-8.2) g/dL Albumin 2.2 L 2.3 L (3.5-5.0) g/dL Current Medications Generic Name Dose Route Start Last Admin Trade Name Freq PRN Reason Stop Dose Admin Atorvastatin Calcium 80 mg 02/23/17 21:00 02/23/17 21:03 Lipitor PO 80 mg HS [facility] Administration Calcitriol 0.5 mcg 02/24/17 12:00 02/24/17 12:09 Rocaltrol PO 0.5 mcg DAILY@1200 [facility] Administration Cholecalciferol 5,000 unit 02/23/17 21:00 02/23/17 21:04 Vitamin D3 PO 5,000 unit HS [facility] Administration Docusate Sodium 200 mg 02/23/17 17:05 Colace PO HS PRN Constipation Ferrous Sulfate 325 mg 02/23/17 21:00 02/24/17 08:16 Feosol PO 325 mg BID [facility] Administration Furosemide 20 mg 02/24/17 09:00 02/24/17 08:17 Lasix PO 20 mg BID@0900,1600 [facility] Administration Heparin Sodium (Porcine) 5,000 unit 02/23/17 21:00 02/24/17 08:17 Heparin SQ Not Given Q12HR [facility] Peritoneal Dialysis Solution 30 g in 2,000 mls @ 0 mls/hr 02/24/17 00:00 00:29 Delflex With 1.5% Dextrose (2,000 Ml) INTRAPERIT 2,000 mls/hr 0000 [facility] Administration Protocol As Directed Peritoneal Dialysis Solution 50 g in 2,000 mls @ 0 mls/hr 02/23/17 18:00 12:10 Delflex With 2.5% Dextrose (2,000 Ml) INTRAPERIT 2,000 mls/hr 0600,1200,1800 [facility] Administration Protocol As Directed Ceftazidime 0.5 gm/ Sodium 50 mls @ 100 mls/hr 02/24/17 09:00 02/24/17 08:16 Chloride IVPB 100 mls/hr DAILY [facility] Administration Sodium Chloride 1,000 mls @ 20 mls/hr 02/23/17 22:30 02/23/17 22:51 Saline 0.9% IV Not Given .Q24H [facility] Vancomycin HCl 1,500 mg/ 250 mls @ 125 mls/hr 02/24/17 13:30 02/24/17 13:14 Sodium Chloride IVPB 02/24/17 15:29 125 mls/hr ONCE ONE Administration Insulin Human Lispro 0 unit 02/23/17 17:30 02/24/17 12:14 Humalog SQ 2 unit ACHS [facility] Administration Protocol Magnesium Oxide 400 mg 02/24/17 12:00 02/24/17 12:12 Mag-Ox PO 400 mg DAILY@1200 [facility] Administration Midodrine 5 mg 02/24/17 09:00 02/24/17 08:18 Proamatine PO 5 mg DAILY [facility] Administration Midodrine 5 mg 02/23/17 17:28 Proamatine PO DAILY PRN BLOOD PRESSURE UNDER 110 Miscellaneous Information 1 each 02/23/17 18:30 Pharmacy To Dose Iv Vancomycin MISCELLANE DIRECTED PRN Per Protocol Multivit/Ca Carb/B Cmplx/FA/Prenat 1 each 02/24/17 12:00 02/24/17 12:11 Nephrocaps PO 1 each DAILY@1200 [facility] Administration Multivitamins/Minerals 1 each 02/24/17 12:00 02/24/17 12:11 Ivite PO 1 each DAILY@1200 [facility] Administration Mycophenolate Sodium 360 mg 02/24/17 09:00 02/24/17 08:18 Myfortic PO 360 mg DAILY [facility] Administration Pantoprazole Sodium 40 mg 02/24/17 07:30 02/24/17 08:16 Protonix PO 40 mg AC-[id number] [facility] Administration Prednisone 5 mg 02/24/17 09:00 02/24/17 08:18 PO 5 mg DAILY [facility] Administration Sodium Bicarbonate 650 mg 02/23/17 21:00 02/24/17 08:18 Sodium Bicarbonate Tab PO 650 mg BID [facility] Administration Tacrolimus 1 mg 02/23/17 21:00 02/24/17 08:18 Prograf PO 1 mg BID [facility] Administration Temazepam 15 mg 02/23/17 21:00 02/24/17 00:29 Restoril PO 15 mg HS PRN Administration Insomnia Intake and Output 02/23/17 02/24/17 02/24/17 22:59 06:59 14:59 Intake Total 240 Balance 240 Intake: Oral 240 Other: Voiding Method Urinal Toilet # Voids 0 0 0 # Bowel Movements 0 Weight 81.6 kg 81.5 kg 81.5 kg Patient Weight 02/25/17 06:59 Weight 81.5 kg 02/24/17 08:27 02/24/17 08:27
--- NOTE | 2017-02-24 14:59 | P.CRDCN ---
History of Present Illness Consult date: 02/24/17 History of present illness: This is a 61-year-old male. Past medical history significant for paroxysmal atrial fibrillation, CAD with 3 vessel CABG, diabetes mellitus, chronic kidney disease personnel dialysis, hyperlipidemia, hypertension, peripheral vascular disease and left BKA. If he has to see this patient prior to vascular surgery amputation of the right lower extremity. Upon examination he is seen resting comfortably in bed. He denies any chest pain, shortness of breath, dizziness or palpitations. He states he is compliant with all his medications. He follows with Dr. Gomez as an outpatient. He had a full cardiac evaluation with a 2017 which was unremarkable. Ejection fraction 45-50% with a severely dilated left atrium and mild aortic regurg. He recently underwent peripheral angiography with Dr. Araya and had atherectomy of the right anterior tip as well as atherectomy of the right SFA and successful stenting of the right anterior tibia and the successful balloon angioplasty of the right SFA. There is no EKG done on this admission. Review of Systems Extensive review of systems performed, negative except mentioned in HPI. Past Medical History Past Medical History: Atrial Fibrillation, Coronary Artery Disease (CAD), Heart Failure, Diabetes Mellitus, Dialysis, Deep Vein Thrombosis (DVT), GERD/Reflux, Hyperlipidemia, Hypertension, Myocardial Infarction (DC), Osteoarthritis (OA), Pneumonia, Renal Disease, Thyroid Disorder, Vascular Disorder Additional Past Medical History / Comment(s): TAKES NO CURRENT MEDS FOR THYROID , STATES HAS ONE CURRENT KIDNEY TRANSPLANT THAT IS FAILING. HAS LEFT BELOW KNEE PROSTHESIS, ANEMIA,"RECENT BX,PT BELEIVES IT WAS THE TEMPEROL ARTERY" AND STATES HE HAS LOST THE VISON IN RT EYE SINCE, GLAUCOMA. GOES TO [facility] Last Myocardial Infarction Date:: 2009 History of Any Multi-Drug Resistant Organisms: None Reported Past Surgical History: Adenoidectomy, Bariatric Surgery, Coronary Bypass/CABG, Heart Catheterization, Tonsillectomy Additional Past Surgical History / Comment(s): jamarcus fliter, kidney transplant-X2,CABG-2010 TRIPLE, gastric bypass, RT great toe amputation , [facility], RIGHT carotid endarterectomy, amputation lt BKA,angioplasty to the popliteal artery and posterior left femoral artery performed by Dr. Fowler on , RECENT BX-PT BELIEVES IT WAS OF THE RT TEMPERAL ARTERY. Past Anesthesia/Blood Transfusion Reactions: No Reported Reaction Additional Past Anesthesia/Blood Transfusion Reaction / Comment(s): HX BLOOD TRANSFUSIONS- NO REACTIONS . Additional Psychological History / Comment(s): Single. Lives in a family home with his daughter and her 2 children. [employer] nonsmoker. No significant alcohol use. Medically disabled. Pet dog. No experience. Smoking Status: Never smoker Smoking Status: Never smoker - Past Family History Father Family Medical History: Diabetes Mellitus, Dialysis Additional Family Medical History / Comment(s): "big heart", bilat BKA Mother Family Medical History: Cancer Additional Family Medical History / Comment(s): colon Medications and Allergies Home Medications Medication Instructions Recorded Confirmed Type Cholecalciferol [Vitamin D3] 5,000 mg PO HS 05/17/14 02/23/17 History Sodium Bicarbonate Tab 650 mg PO BID 05/17/14 02/23/17 History Tacrolimus [Prograf] 1 mg PO BID 12/06/14 02/23/17 History Magnesium Gluconate [Magonate] 500 mg PO DAILY 02/01/15 02/23/17 History Aspirin EC [Ecotrin Low Dose] 81 mg PO HS 02/12/16 02/23/17 History Atorvastatin [Lipitor] 80 mg PO HS 02/12/16 02/23/17 History Calcitriol 0.5 mcg PO DAILY 02/12/16 02/23/17 History Vit C/E/Zn/Coppr/Lutein/Zeaxan 1 cap PO BID 02/12/16 02/23/17 History [Preservision Areds 2 Softgel] Temazepam [Restoril] 15 mg PO HS 07/18/16 02/23/17 History INSULIN LISPRO (HumaLOG) [humaLOG] See Protocol SQ ACHS 07/19/16 02/23/17 History predniSONE 5 mg PO DAILY tab 07/21/16 02/23/[address] [Myfortic] 360 mg PO DAILY 09/15/16 02/23/17 History Ferrous Sulfate [Feosol] 325 mg PO BID #60 tab 12/22/16 02/23/17 Rx Docusate [Colace] 200 mg PO HS PRN 01/01/17 02/23/17 History Furosemide [Lasix] 20 mg PO BID 01/01/17 02/23/17 History Midodrine HCl [ProAmatine] 5 mg PO DAILY 01/01/17 02/23/17 History Renaplex D Vitamin 1 tab PO DAILY 01/01/17 02/23/17 History Clopidogrel [Plavix] 75 mg PO DAILY #30 tab 01/10/17 02/23/17 Rx Sulfamethox-Tmp 400-80Mg [Bactrim 1 tab PO Q12HR #60 tablet 02/16/17 02/23/17 Rx SS 400-80 mg] Allergies Allergy/AdvReac Type Severity Reaction Status Date / Time codeine AdvReac Severe constipatio Verified 02/23/17 16:48 n Physical Exam Vitals: Vital Signs Temp Pulse Pulse Pulse Resp BP BP 02/24/17 12:02 98.2 F 72 18 101/54 02/24/17 08:00 86 14 02/24/17 07:00 98.2 F 84 14 99/67 02/24/17 06:26 97.6 F 80 16 126/74 02/24/17 00:32 98.1 F 84 16 120/62 02/23/17 23:00 99.7 F H 84 14 142/83 02/23/17 18:34 98.0 F 86 14 123/65 02/23/17 17:54 97.6 F 83 16 92/37 02/23/17 15:34 98.0 F 82 16 119/49 Pulse Ox 02/24/17 12:02 96 02/24/17 08:00 02/24/17 07:00 97 02/24/17 06:26 97 02/24/17 00:32 98 02/23/17 23:00 96 02/23/17 18:34 98 02/23/17 17:54 98 02/23/17 15:34 96 Intake and Output 02/23/17 02/24/17 02/24/17 22:59 06:59 14:59 Intake Total 240 Balance 240 Intake: Oral 240 Other: Voiding Method Urinal Toilet # Voids 0 0 0 # Bowel Movements 0 Weight 81.6 kg 81.5 kg 81.5 kg Patient Weight 02/25/17 06:59 Weight 81.5 kg GENERAL: This is a 61-year-old male in no apparent distress at the time of my examination. HEENT: Head is atraumatic, normocephalic. Pupils are equal, round. Sclerae anicteric. Conjunctivae are clear. Mucous membranes of the mouth are moist. Neck is supple. There is no jugular venous distention. No carotid bruit is heard. LUNGS: Clear to auscultation no wheezes, rales or rhonchi. No chest wall tenderness is noted on palpation or with deep breathing. HEART: Regular rate and rhythm with systolic ejection murmur at the base, no rubs or gallops. S1 and S2 heard. ABDOMEN: Soft, nontender. Bowel sounds are heard. No organomegaly noted. EXTREMITIES: Left BKA. Right lower extremity wrapped with dressing. Redness and swelling evident. No foul are noted. NEUROLOGIC: Patient is awake, alert and oriented x3. Results 02/24/17 08:27 02/24/17 08:27 Cardiac Enzymes 02/23/17 02/24/17 Range/Units 14:57 08:27 AST 20 22 (17-59) U/L CBC 02/23/17 02/24/17 Range/Units 14:57 08:27 WBC 7.9 6.9 (3.8-10.6) k/uL RBC 4.19 L 4.18 L (4.30-5.90) m/uL Hgb 11.7 L 11.5 L (13.0-17.5) gm/dL Hct 37.5 L 37.2 L (39.0-53.0) % Plt Count 307 346 (150-450) k/uL Comprehensive Metabolic Panel 02/23/17 02/24/17 Range/Units 14:57 08:27 Sodium 134 L 135 L (137-145) mmol/L Potassium 3.9 4.3 (3.5-5.1) mmol/L Chloride 100 101 (98-107) mmol/L Carbon Dioxide 26 25 (22-30) mmol/L BUN 32 H 29 H (9-20) mg/dL Creatinine 3.30 H 3.24 H (0.66-1.25) mg/dL Glucose 268 H 203 H (74-99) mg/dL Calcium 8.3 L 8.4 (8.4-10.2) mg/dL AST 20 22 (17-59) U/L ALT 39 37 (21-72) U/L Alkaline Phosphatase 76 73 (38-126) U/L Total Protein 4.6 L 4.6 L (6.3-8.2) g/dL Albumin 2.2 L 2.3 L (3.5-5.0) g/dL Current Medications Generic Name Dose Route Start Last Admin Trade Name Freq PRN Reason Stop Dose Admin Atorvastatin Calcium 80 mg 02/23/17 21:00 02/23/17 21:03 Lipitor PO 80 mg HS SAMSON Administration Calcitriol 0.5 mcg 02/24/17 12:00 02/24/17 12:09 Rocaltrol PO 0.5 mcg DAILY@1200 SAMSON Administration Cholecalciferol 5,000 unit 02/23/17 21:00 02/23/17 21:04 Vitamin D3 PO 5,000 unit HS SAMSON Administration Docusate Sodium 200 mg 02/23/17 17:05 Colace PO HS PRN Constipation Ferrous Sulfate 325 mg 02/23/17 21:00 02/24/17 08:16 Feosol PO 325 mg BID SAMSON Administration Furosemide 20 mg 02/24/17 09:00 02/24/17 08:17 Lasix PO 20 mg BID@0900,1600 SAMSON Administration Heparin Sodium (Porcine) 5,000 unit 02/23/17 21:00 02/24/17 08:17 Heparin SQ Not Given Q12HR SAMSON Peritoneal Dialysis Solution 30 g in 2,000 mls @ 0 mls/hr 02/24/17 00:00 00:29 Delflex With 1.5% Dextrose (2,000 Ml) INTRAPERIT 2,000 mls/hr 0000 SAMSON Administration Protocol As Directed Peritoneal Dialysis Solution 50 g in 2,000 mls @ 0 mls/hr 02/23/17 18:00 12:10 Delflex With 2.5% Dextrose (2,000 Ml) INTRAPERIT 2,000 mls/hr 0600,1200,1800 SAMSON Administration Protocol As Directed Ceftazidime 0.5 gm/ Sodium 50 mls @ 100 mls/hr 02/24/17 09:00 02/24/17 08:16 Chloride IVPB 100 mls/hr DAILY SAMSON Administration Sodium Chloride 1,000 mls @ 20 mls/hr 02/23/17 22:30 02/23/17 22:51 Saline 0.9% IV Not Given .Q24H SAMSON Vancomycin HCl 1,500 mg/ 250 mls @ 125 mls/hr 02/24/17 13:30 02/24/17 13:14 Sodium Chloride IVPB 02/24/17 15:29 125 mls/hr ONCE ONE Administration Insulin Human Lispro 0 unit 02/23/17 17:30 02/24/17 12:14 Humalog SQ 2 unit ACHS SAMSON Administration Protocol Magnesium Oxide 400 mg 02/24/17 12:00 02/24/17 12:12 Mag-Ox PO 400 mg DAILY@1200 SAMSON Administration Midodrine 5 mg 02/24/17 09:00 02/24/17 08:18 Proamatine PO 5 mg DAILY SAMSON Administration Midodrine 5 mg 02/23/17 17:28 Proamatine PO DAILY PRN BLOOD PRESSURE UNDER 110 Miscellaneous Information 1 each 02/23/17 18:30 Pharmacy To Dose Iv Vancomycin MISCELLANE DIRECTED PRN Per Protocol Multivit/Ca Carb/B Cmplx/FA/Prenat 1 each 02/24/17 12:00 02/24/17 12:11 Nephrocaps PO 1 each DAILY@1200 SAMSON Administration Multivitamins/Minerals 1 each 02/24/17 12:00 02/24/17 12:11 Ivite PO 1 each DAILY@1200 SAMSON Administration Mycophenolate Sodium 360 mg 02/24/17 09:00 02/24/17 08:18 Myfortic PO 360 mg DAILY SAMSON Administration Pantoprazole Sodium 40 mg 02/24/17 07:30 02/24/17 08:16 Protonix PO 40 mg AC-[id number] SAMSON Administration Prednisone 5 mg 02/24/17 09:00 02/24/17 08:18 PO 5 mg DAILY SAMSON Administration Sodium Bicarbonate 650 mg 02/23/17 21:00 02/24/17 08:18 Sodium Bicarbonate Tab PO 650 mg BID SAMSON Administration Tacrolimus 1 mg 02/23/17 21:00 02/24/17 08:18 Prograf PO 1 mg BID SAMSON Administration Temazepam 15 mg 02/23/17 21:00 02/24/17 00:29 Restoril PO 15 mg HS PRN Administration Insomnia Intake and Output 02/23/17 02/24/17 02/24/17 22:59 06:59 14:59 Intake Total 240 Balance 240 Intake: Oral 240 Other: Voiding Method Urinal Toilet # Voids 0 0 0 # Bowel Movements 0 Weight 81.6 kg 81.5 kg 81.5 kg Patient Weight 02/25/17 06:59 Weight 81.5 kg 02/24/17 08:27 02/24/17 08:27 Assessment and Plan Plan: ASSESSMENT 1. History of CAD with triple-vessel CABG 2. Paroxysmal atrial fibrillation, rate controlled 3. Severe peripheral vascular disease 4. Diabetes mellitus 5. Chronic kidney disease on peritoneal dialysis status post transplant rejection 6. Left BKA 7. Chronic stable systolic heart failure PLAN Obtain EKG. Continue current medication regimen including beta eitan, statin and ASA. May hold plavix. This patient is a moderate to high risk for surgical intervention due to his multiple comorbidities. He is stable from a cardiac standpoint under the current medication regimen. This medication should be continued immediately postoperatively. We will continue to follow this patient in the postoperative phase. Thank you kindly for this consultation Nurse Practitioner note has been reviewed, I agree with a documented findings and plan of care. Patient was seen and examined.
[2017-02-24 17:31] LABS: Glucose,Whole Blood 232 mg/dL (75-99)
[2017-02-24 20:43] LABS: Glucose,Whole Blood 177 mg/dL (75-99)
[2017-02-24] MEDS: ATORVASTATIN 80 MG TAB PO SCH (20:52)
[2017-02-24] MEDS: CHOLECALCIFEROL 1,000 UNIT TAB PO SCH (20:54)
[2017-02-24] MEDS: SODIUM CHLORIDE 0.9% 1,000 ML IV SCH (21:04)
--- NOTE | 2017-02-24 22:00 | P.PN ---
Subjective Principal diagnosis: Gangrene right foot Pleasant 61-year-old male who has a history of diabetes mellitus type 2 with many complications that includes end-stage renal disease. He did have a renal transplantation but that has failed. And now undergoes chronic and which were approaching hemodialysis for the renal failure. 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 The patient relates that he is doing modestly well as of late. He did have foot evaluation some toenail cutting performed. Now 3 weeks later he developed evidence of a blister onto his right foot associated with erythema and swelling to the residual second toe. With his neuropathy is not having pain but is very concerned given the left [id number] amputation for limb salvage. Patient denies any known trauma but patient was hospitalized during the summer. At that point in time he was having difficulties with volume overload. This resulted in significant edema which worsen the process to the right foot. He had a significant surgical intervention with amputation of the great and second toe. Despite the surgical intervention is been having nonhealing to the area. He is followed in the wound healing center as well as vascular surgery. He developed increasing discoloration to the lateral aspect of the right foot. Evaluation revealed evidence of severe peripheral vascular disease. The patient did present to the outpatient clinic today and was advised for admission for surgical intervention. There is evidence of bone fragments migrating out of the foot ulceration and worsening of the dry gangrenous changes to the lateral aspect of the foot. The patient also was not feeling well due to the significant infectious process. Patient has been seen by vascular surgery. Cardiology consult in process for clearance for surgery for his below-knee amputation tomorrow. Objective - Vital Signs Vital signs: Vital Signs Temp 98.1 F 02/24/17 18:20 Pulse 64 02/24/17 18:20 Resp 18 02/24/17 18:20 BP 116/51 02/24/17 18:20 Pulse Ox 97 02/24/17 18:20 Intake & Output 02/24/17 02/24/17 02/25/17 06:59 18:59 06:59 Intake Total 240 Balance 240 Weight 81.5 kg 81.5 kg Intake: Oral 240 Other: Voiding Method Toilet # Voids 0 0 1 # Bowel Movements 0 - Exam Jasbir 61-year-old male presents to Hospital with significant change to his right foot. HEENT: Anicteric conjunctiva are pink and moist nasal mucosa grossly intact without significant lesions, there is no thrush. Neck: The neck is supple without significant lymphadenopathy or thyromegaly. Lungs: Good bilateral air entry without significant crackles or wheezing. There is no significant bronchial sounds. There is no egophony or dullness. Heart: Irregular with an audible S1 and S2. No S3 soft S4, 2/6 systolic murmur left sternal border is holosystolic. Abdomen: Positive bowel sounds soft and nontender without palpable masses or organomegaly. There was no guarding or rebound. Extremities: The prior shunt to the left arm is only minimal thrill and apparently is not functional for hemodialysis. The left lower extremity below the knee amputation residual limb is in good order. There is no erythema or crepitance or fluctuance. He wears a gel coat sprayer and has no edema or lesions. The right lower extremity shows evidence the gangrenous changes please the nursing therapy assistant for the extensive gangrenous changes of the prior amputation site in the lateral aspect of the foot. Necrotic bone was easily removed from the foot today. Neuro: Awake alert oriented to person place and time. He has dense severe peripheral neuropathy - Labs CBC & Chem 7: 02/24/17 08:27 02/24/17 08:27 Labs: Abnormal Lab Results - Last 24 Hours (Table) 02/24/17 02/24/17 02/24/17 Range/Units 07:27 08:27 08:27 RBC 4.18 L (4.30-5.90) m/uL Hgb 11.5 L (13.0-17.5) gm/dL Hct 37.2 L (39.0-53.0) % Sodium 135 L (137-145) mmol/L BUN 29 H (9-20) mg/dL Creatinine 3.24 H (0.66-1.25) mg/dL Glucose 203 H (74-99) mg/dL POC Glucose (mg/dL) 134 H (75-99) mg/dL Total Protein 4.6 L (6.3-8.2) g/dL Albumin 2.3 L (3.5-5.0) g/dL 02/24/17 02/24/17 02/24/17 Range/Units 12:11 17:29 20:42 RBC (4.30-5.90) m/uL Hgb (13.0-17.5) gm/dL Hct (39.0-53.0) % Sodium (137-145) mmol/L BUN (9-20) mg/dL Creatinine (0.66-1.25) mg/dL Glucose (74-99) mg/dL POC Glucose (mg/dL) 182 H 232 H 177 H (75-99) mg/dL Total Protein (6.3-8.2) g/dL Albumin (3.5-5.0) g/dL Microbiology - Last 24 Hours (Table) 02/23/17 14:50 Gram Stain - Preliminary Foot - Right Wound Culture - Preliminary Gram Neg Bacilli 02/23/17 14:50 Anaerobic Culture - Preliminary Foot - Right Laboratory Results WBC 6.9 k/uL (3.8-10.6) 02/24/17 08:27 RBC 4.18 m/uL (4.30-5.90) L 02/24/17 08:27 Hgb 11.5 gm/dL (13.0-17.5) L 02/24/17 08:27 Hct 37.2 % (39.0-53.0) L 02/24/17 08:27 MCV 88.9 fL (80.0-100.0) 02/24/17 08:27 MCH 27.6 pg (25.0-35.0) 02/24/17 08:27 MCHC 31.0 g/dL (31.0-37.0) 02/24/17 08:27 RDW 14.4 % (11.5-15.5) 02/24/17 08:27 Plt Count 346 k/uL (150-450) 02/24/17 08:27 Neutrophils % 74 % 02/24/17 08:27 Lymphocytes % 16 % 02/24/17 08:27 Monocytes % 7 % 02/24/17 08:27 Eosinophils % 1 % 02/24/17 08:27 Basophils % 1 % 02/24/17 08:27 Neutrophils # 5.1 k/uL (1.3-7.7) 02/24/17 08:27 Lymphocytes # 1.1 k/uL (1.0-4.8) 02/24/17 08:27 Monocytes # 0.5 k/uL (0-1.0) 02/24/17 08:27 Eosinophils # 0.0 k/uL (0-0.7) 02/24/17 08:27 Basophils # 0.0 k/uL (0-0.2) 02/24/17 08:27 Hypochromasia Marked 02/24/17 08:27 Sodium 135 mmol/L (137-145) L 02/24/17 08:27 Potassium 4.3 mmol/L (3.5-5.1) 02/24/17 08:27 Chloride 101 mmol/L (98-107) 02/24/17 08:27 Carbon Dioxide 25 mmol/L (22-30) 02/24/17 08:27 Anion Gap 9 mmol/L 02/24/17 08:27 BUN 29 mg/dL (9-20) H 02/24/17 08:27 Creatinine 3.24 mg/dL (0.66-1.25) H 02/24/17 08:27 Est GFR (MDRD) Af Amer 24 (>60 ml/min/1.73 sqM) 02/24/17 08:27 Est GFR (MDRD) Non-Af 20 (>60 ml/min/1.73 sqM) 02/24/17 08:27 Glucose 203 mg/dL (74-99) H 02/24/17 08:27 POC Glucose (mg/dL) 177 mg/dL (75-99) H 02/24/17 20:42 POC Glu Senior Financial Accountant ID Gail Steven 02/24/17 20:42 Calcium 8.4 mg/dL (8.4-10.2) 02/24/17 08:27 Phosphorus 3.3 mg/dL (2.5-4.5) 02/24/17 08:27 Total Bilirubin 0.3 mg/dL (0.2-1.3) 02/24/17 08:27 AST 22 U/L (17-59) 02/24/17 08:27 ALT 37 U/L (21-72) 02/24/17 08:27 Alkaline Phosphatase 73 U/L (38-126) 02/24/17 08:27 Total Protein 4.6 g/dL (6.3-8.2) L 02/24/17 08:27 Albumin 2.3 g/dL (3.5-5.0) L 02/24/17 08:27 Random Vancomycin 10.8 ug/mL 02/24/17 08:27 Microbiology 02/23/17 14:50 Foot - Right Gram Stain - Preliminary 02/23/17 14:50 Foot - Right Wound Culture - Preliminary Gram Neg Bacilli 02/23/17 14:50 Foot - Right Anaerobic Culture - Preliminary Assessment and Plan (1) Diabetic ulcer of right foot associated with diabetes mellitus due to underlying condition, with necrosis of bone Status: Acute (2) Gangrene of right foot Narrative/Plan: 61-year-old male presents to the office today with evidence of the marked worsening to the diabetic foot ulceration of his right foot. There is evidence of worsening gangrenous changes. Necrotic bone was exposed and easily peeled out of the base of the ulceration. There is also worsened with dry gangrenous changes to the lateral aspect of the foot. The case is discussed with the vascular surgeon. The patient's primary care physician was contacted and ranges were made for admission. The patient has now been admitted. He will be cleared by cardiology and then proceed to a below-knee amputation in the near future. He has had extensive vascular evaluations performed recently. He's also had some procedures the failed to allow significant improvement of the foot. The patient at this time relates he looks forward to amputation to improve his quality of life. Hopefully they gets up on the 2 prosthesis he will do relatively well. As noted he had a gastric bypass procedure he's lost more than 200 pounds and this has allowed him to be quite mobile with his left leg prosthesis. He is highly motivated and hopefully will be able to ambulate with 2 prosthesis. Antibiotic therapy at this point in time as directed for the most recent culture with vancomycin and ceftazidime are being utilized for now. Follow-up cultures are in process. Leukocytosis due to the gangrenous changes. Cardiology clearance and then surgery likely tomorrow for the below the knee amputation. Status: Acute (3) Leukocytosis Status: Acute (4) End-stage renal disease on peritoneal dialysis Status: Acute
[2017-02-25 07:19] LABS: Glucose,Whole Blood 110 mg/dL (75-99)
[2017-02-25] MEDS: INSULIN LISPRO (humaLOG) 300 UNIT/3 ML VIAL SQ SCH ×4 (07:31→21:06)
[2017-02-25] MEDS: DIALYSIS (PERIT 2.5%) 2,000 ML 50 G/2,000 ML BAG INTRAPERIT SCH ×3 (07:32→17:58)
[2017-02-25] MEDS: PANTOPRAZOLE 40 MG TABLET PO SCH (07:34)
[2017-02-25] MEDS: FERROUS SULFATE 325 MG TAB PO SCH ×2 (07:36→21:04)
[2017-02-25] MEDS: FUROSEMIDE 20 MG TAB PO SCH ×2 (07:36→15:43)
[2017-02-25] MEDS: HEPARIN SODIUM,PORCINE 5,000 UNIT/ML 1 ML VIAL SQ SCH ×2 (07:38→21:05)
[2017-02-25] MEDS: MIDODRINE 5 MG TAB PO SCH (07:38)
[2017-02-25] MEDS: MYCOPHENOLATE SODIUM DR 180 MG TABLET.DR PO SCH (07:39)
[2017-02-25] MEDS: predniSONE 5 MG TAB PO SCH (07:39)
[2017-02-25] MEDS: SODIUM BICARBONATE TAB 650 MG TAB PO SCH ×2 (07:40→21:05)
[2017-02-25] MEDS: TACROLIMUS 1 MG CAP PO SCH ×2 (07:40→21:05)
[2017-02-25 07:42] LABS: Basophils % (A) 0 %; CH 27.9; CHCM 31.1; Eosinophils % (A) 0 %; HCT 36.6 % (39.0-53.0); HDW 2.74; HGB 11.2 gm/dL (13.0-17.5); Hypochromasia Slight; Luc # (Auto) 0.15; Luc % (Auto) 2; Lymphocytes # (A) 1.2 k/uL (1.0-4.8); Lymphocytes % (A) 17 %; MCH 27.7 pg (25.0-35.0); MCHC 30.7 g/dL (31.0-37.0); Mean Platelet Volume 8.1; Monocytes # (A) 0.4 k/uL (0-1.0); Monocytes % (A) 6 %; Neutrophils # (A) 5.4 k/uL (1.3-7.7); Neutrophils % (A) 75 %; RBC 4.06 m/uL (4.30-5.90); RDW 15.2 % (11.5-15.5); WBC 7.2 k/uL (3.8-10.6); WBC (Perox) 6.77
[2017-02-25 08:04] LABS: Calcium 8.3 mg/dL (8.4-10.2); Total Bilirubin 0.3 mg/dL (0.2-1.3); Total Protein 4.4 g/dL (6.3-8.2)
[2017-02-25] MEDS: VIT A,C & E-LUTEIN-MINERALS 1 EACH TAB PO SCH (12:03)
[2017-02-25] MEDS: FOLIC ACID-VIT B COMPLEX-VIT C 1 CAP PO SCH (12:03)
[2017-02-25] MEDS: CALCITRIOL 0.25 MCG CAP PO SCH (12:03)
[2017-02-25] MEDS: MAGNESIUM OXIDE 400 MG TAB PO SCH (12:03)
[2017-02-25 12:05] LABS: Glucose,Whole Blood 274 mg/dL (75-99)
--- NOTE | 2017-02-25 12:13 | P.PN ---
Subjective patient is seen in follow-up for end-stage renal disease. He is maintained on peritoneal dialysis. Patient is currently being treated for right toe gangrene. He is awaiting a below the knee amputation. No problems with peritoneal dialysis. Dialysis fluid is clear. Hemodynamically stable. Denies abdominal pain. Vital signs are stable. General: The patient appeared well nourished and normally developed. HEENT: Head exam is unremarkable. Neck is without jugular venous distension. LUNGS: Lungs are clear to auscultation and percussion. Breath sounds decreased. HEART: Rate and Rhythm are regular. First and second heart sounds normal. No murmurs, rubs or gallops. ABDOMEN: Abdominal exam reveals normal bowel sounds. Non-tender and non- distended. No evidence of peritonitis. EXTREMITITES: No clubbing, cyanosis, or edema. Right foot wrapped with no obvious drainage. Left BKA noted. Objective - Vital Signs Vital signs: Vital Signs Temp 97.3 F L 02/25/17 07:00 Pulse 66 02/25/17 07:00 Resp 14 02/25/17 07:00 BP 138/62 02/25/17 07:00 Pulse Ox 97 02/25/17 07:00 Intake & Output 02/24/17 02/25/17 02/25/17 18:59 06:59 18:59 Intake Total 240 240 Balance 240 240 Weight 81.5 kg Intake: Oral 240 240 Other: Voiding Method Toilet Toilet # Voids 0 1 # Bowel Movements 0 - Labs CBC & Chem 7: 02/25/17 06:55 02/25/17 06:55 Labs: Abnormal Lab Results - Last 24 Hours (Table) 02/24/17 02/24/17 02/24/17 Range/Units 12:11 17:29 20:42 RBC (4.30-5.90) m/uL Hgb (13.0-17.5) gm/dL Hct (39.0-53.0) % MCHC (31.0-37.0) g/dL Sodium (137-145) mmol/L BUN (9-20) mg/dL Creatinine (0.66-1.25) mg/dL Glucose (74-99) mg/dL POC Glucose (mg/dL) 182 H 232 H 177 H (75-99) mg/dL Calcium (8.4-10.2) mg/dL Total Protein (6.3-8.2) g/dL Albumin (3.5-5.0) g/dL 02/25/17 02/25/17 02/25/17 Range/Units 06:55 06:55 07:00 RBC 4.06 L (4.30-5.90) m/uL Hgb 11.2 L (13.0-17.5) gm/dL Hct 36.6 L (39.0-53.0) % MCHC 30.7 L (31.0-37.0) g/dL Sodium 135 L (137-145) mmol/L BUN 28 H (9-20) mg/dL Creatinine 3.14 H (0.66-1.25) mg/dL Glucose 107 H (74-99) mg/dL POC Glucose (mg/dL) 110 H (75-99) mg/dL Calcium 8.3 L (8.4-10.2) mg/dL Total Protein 4.4 L (6.3-8.2) g/dL Albumin 2.1 L (3.5-5.0) g/dL 02/25/17 Range/Units 12:01 RBC (4.30-5.90) m/uL Hgb (13.0-17.5) gm/dL Hct (39.0-53.0) % MCHC (31.0-37.0) g/dL Sodium (137-145) mmol/L BUN (9-20) mg/dL Creatinine (0.66-1.25) mg/dL Glucose (74-99) mg/dL POC Glucose (mg/dL) 274 H (75-99) mg/dL Calcium (8.4-10.2) mg/dL Total Protein (6.3-8.2) g/dL Albumin (3.5-5.0) g/dL Microbiology - Last 24 Hours (Table) 02/23/17 14:50 Gram Stain - Preliminary Foot - Right Wound Culture - Preliminary Gram Neg Bacilli Assessment and Plan Plan: Assessment: #1. End-stage renal disease maintained on peritoneal dialysis. #2. Right foot gangrene scheduled for below knee amputation this admission. #3. History of donor renal allograft from [facility] in 2010. Now being weaned off immunosuppression. #4. History of left below the knee amputation. #5. Diabetes mellitus. Plan: Continue with peritoneal dialysis exchanges with 2 L every 6 hours alternating with 1.5 and 2.5% solution. Antibiotics per infectious disease recommendations. Vascular surgery following. Cardiology also following to clear the patient for surgery.
[2017-02-25 17:26] LABS: Glucose,Whole Blood 80 mg/dL (75-99)
--- NOTE | 2017-02-25 17:53 | P.PN ---
Subjective This is a 61-year-old male with a known history of chronic renal failure with right kidney transplant on peritoneal dialysis. Also has a history of coronary artery disease with previous coronary artery bypass grafting, atrial fibrillation, DVT of the lower extremity with a Melissa filter placed, hypertension and hyperlipidemia. diabetes mellitus type 2, peripheral vascular disease, left BKA, previous hospital admission in January with necrosis of the right second and third toe requiring amputation of those toes on 01/09/2017. Patient also had angioplasty and stent placement to the right anterior tibial artery by cardiology during that admission. Since that admission in January he has had issues with that right foot. He has necrotic tissue on the pad of the foot. There is also some necrotic changes along the lateral aspect of the foot. The posterior part of the foot is red and warm. There is a follow odor present per patient. Patient noted changes of the last 2 weeks. He's been following up with Dr. Nino in the wound care center. He reports he has been on Bactrim in the outpatient setting. Patient was at Dr. Nino office for routine visit and was told to go see Dr. Mosquera and be directly admitted to the hospital for possible amputation of the foot. Patient is also noted some discharge and follow odor from the open area of the ulcer on top of his foot. Patient denies any fever or chills or sweats. Denies any nausea or vomiting. Denies any bowel movement changes or urinary symptoms. 02/24/2017 patient is alert and oriented pain is well controlled he is being evaluated by cardiology for surgical clearance he denies any chest pain or shortness of breath there is no nausea or vomiting no abdominal pain no diarrhea or constipation Objective - Vital Signs Vital signs: Vital Signs Temp 96.0 F L 02/25/17 15:00 Pulse 77 02/25/17 15:00 Resp 18 02/25/17 15:00 BP 123/56 02/25/17 15:00 Pulse Ox 98 02/25/17 15:00 Intake & Output 02/24/17 02/25/17 02/25/17 18:59 06:59 18:59 Intake Total 240 240 Balance 240 240 Weight 81.5 kg Intake: Oral 240 240 Other: Voiding Method Toilet Toilet # Voids 0 1 2 # Bowel Movements 0 - Exam In general patient is alert and oriented in no apparent distress HEENT head normocephalic and atraumatic Neck is supple no JVD no goiter no lymphadenopathy Chest exam is clear to auscultation no crackles no wheezing Cardiac exam reveals regular heart sounds S1 and S2 no gallops no murmurs Abdomen is soft nontender no organomegaly with normal bowel sounds Extremity exam reveals minimal edema, nonhealing ulcer on the right foot there is previous below knee amputation on the left - Labs CBC & Chem 7: 02/25/17 06:55 02/25/17 06:55 Labs: Abnormal Lab Results - Last 24 Hours (Table) 02/24/17 02/25/17 02/25/17 Range/Units 20:42 06:55 06:55 RBC 4.06 L (4.30-5.90) m/uL Hgb 11.2 L (13.0-17.5) gm/dL Hct 36.6 L (39.0-53.0) % MCHC 30.7 L (31.0-37.0) g/dL Sodium 135 L (137-145) mmol/L BUN 28 H (9-20) mg/dL Creatinine 3.14 H (0.66-1.25) mg/dL Glucose 107 H (74-99) mg/dL POC Glucose (mg/dL) 177 H (75-99) mg/dL Calcium 8.3 L (8.4-10.2) mg/dL Total Protein 4.4 L (6.3-8.2) g/dL Albumin 2.1 L (3.5-5.0) g/dL 02/25/17 02/25/17 Range/Units 07:00 12:01 RBC (4.30-5.90) m/uL Hgb (13.0-17.5) gm/dL Hct (39.0-53.0) % MCHC (31.0-37.0) g/dL Sodium (137-145) mmol/L BUN (9-20) mg/dL Creatinine (0.66-1.25) mg/dL Glucose (74-99) mg/dL POC Glucose (mg/dL) 110 H 274 H (75-99) mg/dL Calcium (8.4-10.2) mg/dL Total Protein (6.3-8.2) g/dL Albumin (3.5-5.0) g/dL Microbiology - Last 24 Hours (Table) 02/23/17 14:50 Gram Stain - Final Foot - Right Wound Culture - Final Acinetobacter peter/haemol Assessment and Plan Plan: 1. Right foot is ulcer with necrotic skin changes: Had been on Bactrim outpatient with no improvement. Consult infectious disease. Wound cultures ordered. Antibiotics per infectious disease. 2. Known diabetic ulcer of the right foot with peripheral vascular disease status post angioplasty and stent placement to the right anterior tibial artery by cardiology in January 2017. Patient is also status post amputation of the right second and third toe on 01/09/2017 3. Chronic kidney disease stage V with history of right kidney transplant secondary to his diabetes mellitus. Patient currently on peritoneal dialysis. Consult from nephrology placed 4. Diabetes mellitus type 2. We'll place patient on Humalog sliding scale. Previous hemoglobin A1c was 4.7 5. Chronic atrial fibrillation: Coumadin discontinued on last admission 6. History of peripheral vascular disease secondary to his diabetes mellitus and required a left below the knee amputation 7. Chronic systolic CHF: No evidence of exacerbation. Echo from September 2016 shows an EF of 45-50% 8. Anemia of chronic kidney disease with iron deficiency anemia. 9. History of coronary artery disease with previous coronary artery bypass grafting plan for surgery tomorrow continue current care otherwise
[2017-02-25 20:50] LABS: Glucose,Whole Blood 185 mg/dL (75-99)
[2017-02-25] MEDS: ATORVASTATIN 80 MG TAB PO SCH (21:04)
[2017-02-25] MEDS: CHOLECALCIFEROL 1,000 UNIT TAB PO SCH (21:04)
--- NOTE | 2017-02-25 22:34 | P.PN ---
Subjective Principal diagnosis: Gangrene right foot Objective - Vital Signs Vital signs: Vital Signs Temp 97.6 F 02/25/17 18:45 Pulse 64 02/25/17 18:45 Resp 16 02/25/17 18:45 BP 102/76 02/25/17 18:45 Pulse Ox 95 02/25/17 18:45 Intake & Output 02/25/17 02/25/17 02/26/17 06:59 18:59 06:59 Intake Total 240 Balance 240 Intake: Oral 240 Other: Voiding Method Toilet # Voids 1 2 - Exam Pleasant 61-year-old male presents to Hospital with significant change to his right foot. HEENT: Anicteric conjunctiva are pink and moist nasal mucosa grossly intact without significant lesions, there is no thrush. Neck: The neck is supple without significant lymphadenopathy or thyromegaly. Lungs: Good bilateral air entry without significant crackles or wheezing. There is no significant bronchial sounds. There is no egophony or dullness. Heart: Irregular with an audible S1 and S2. No S3 soft S4, 2/6 systolic murmur left sternal border is holosystolic. Abdomen: Positive bowel sounds soft and nontender without palpable masses or organomegaly. There was no guarding or rebound. Extremities: The prior shunt to the left arm is only minimal thrill and apparently is not functional for hemodialysis. The left lower extremity below the knee amputation residual limb is in good order. There is no erythema or crepitance or fluctuance. He wears a purchasing administrative assistant and has no edema or lesions. The right lower extremity shows evidence the gangrenous changes please the nursing photography for the extensive gangrenous changes of the prior amputation site in the lateral aspect of the foot. Necrotic bone was easily removed from the foot recently. Neuro: Awake alert oriented to person place and time. He has dense severe peripheral neuropathy - Labs CBC & Chem 7: 02/25/17 06:55 02/25/17 06:55 Labs: Abnormal Lab Results - Last 24 Hours (Table) 02/25/17 02/25/17 02/25/17 Range/Units 06:55 06:55 07:00 RBC 4.06 L (4.30-5.90) m/uL Hgb 11.2 L (13.0-17.5) gm/dL Hct 36.6 L (39.0-53.0) % MCHC 30.7 L (31.0-37.0) g/dL Sodium 135 L (137-145) mmol/L BUN 28 H (9-20) mg/dL Creatinine 3.14 H (0.66-1.25) mg/dL Glucose 107 H (74-99) mg/dL POC Glucose (mg/dL) 110 H (75-99) mg/dL Calcium 8.3 L (8.4-10.2) mg/dL Total Protein 4.4 L (6.3-8.2) g/dL Albumin 2.1 L (3.5-5.0) g/dL 02/25/17 02/25/17 Range/Units 12:01 20:48 RBC (4.30-5.90) m/uL Hgb (13.0-17.5) gm/dL Hct (39.0-53.0) % MCHC (31.0-37.0) g/dL Sodium (137-145) mmol/L BUN (9-20) mg/dL Creatinine (0.66-1.25) mg/dL Glucose (74-99) mg/dL POC Glucose (mg/dL) 274 H 185 H (75-99) mg/dL Calcium (8.4-10.2) mg/dL Total Protein (6.3-8.2) g/dL Albumin (3.5-5.0) g/dL Microbiology - Last 24 Hours (Table) 02/23/17 14:50 Gram Stain - Final Foot - Right Wound Culture - Final Acinetobacter peter/haemol Laboratory Results WBC 7.2 k/uL (3.8-10.6) 02/25/17 06:55 RBC 4.06 m/uL (4.30-5.90) L 02/25/17 06:55 Hgb 11.2 gm/dL (13.0-17.5) L 02/25/17 06:55 Hct 36.6 % (39.0-53.0) L 02/25/17 06:55 MCV 90.0 fL (80.0-100.0) 02/25/17 06:55 MCH 27.7 pg (25.0-35.0) 02/25/17 06:55 MCHC 30.7 g/dL (31.0-37.0) L 02/25/17 06:55 RDW 15.2 % (11.5-15.5) 02/25/17 06:55 Plt Count 303 k/uL (150-450) 02/25/17 06:55 Neutrophils % 75 % 02/25/17 06:55 Lymphocytes % 17 % 02/25/17 06:55 Monocytes % 6 % 02/25/17 06:55 Eosinophils % 0 % 02/25/17 06:55 Basophils % 0 % 02/25/17 06:55 Neutrophils # 5.4 k/uL (1.3-7.7) 02/25/17 06:55 Lymphocytes # 1.2 k/uL (1.0-4.8) 02/25/17 06:55 Monocytes # 0.4 k/uL (0-1.0) 02/25/17 06:55 Eosinophils # 0.0 k/uL (0-0.7) 02/25/17 06:55 Basophils # 0.0 k/uL (0-0.2) 02/25/17 06:55 Hypochromasia Slight 02/25/17 06:55 Sodium 135 mmol/L (137-145) L 02/25/17 06:55 Potassium 4.0 mmol/L (3.5-5.1) 02/25/17 06:55 Chloride 104 mmol/L (98-107) 02/25/17 06:55 Carbon Dioxide 24 mmol/L (22-30) 02/25/17 06:55 Anion Gap 7 mmol/L 02/25/17 06:55 BUN 28 mg/dL (9-20) H 02/25/17 06:55 Creatinine 3.14 mg/dL (0.66-1.25) H 02/25/17 06:55 Est GFR (MDRD) Af Amer 25 (>60 ml/min/1.73 sqM) 02/25/17 06:55 Est GFR (MDRD) Non-Af 20 (>60 ml/min/1.73 sqM) 02/25/17 06:55 Glucose 107 mg/dL (74-99) H 02/25/17 06:55 POC Glucose (mg/dL) 185 mg/dL (75-99) H 02/25/17 20:48 POC Glu [employer]airer Gail Deluna 02/25/17 20:48 Calcium 8.3 mg/dL (8.4-10.2) L 02/25/17 06:55 Phosphorus 3.3 mg/dL (2.5-4.5) 02/24/17 08:27 Total Bilirubin 0.3 mg/dL (0.2-1.3) 02/25/17 06:55 AST 20 U/L (17-59) 02/25/17 06:55 ALT 37 U/L (21-72) 02/25/17 06:55 Alkaline Phosphatase 70 U/L (38-126) 02/25/17 06:55 Total Protein 4.4 g/dL (6.3-8.2) L 02/25/17 06:55 Albumin 2.1 g/dL (3.5-5.0) L 02/25/17 06:55 Random Vancomycin 10.8 ug/mL 02/24/17 08:27 Microbiology 02/23/17 14:50 Foot - Right Gram Stain - Final 02/23/17 14:50 Foot - Right Wound Culture - Final Acinetobacter peter/haemol 02/23/17 14:50 Foot - Right Anaerobic Culture - Preliminary Assessment and Plan (1) Diabetic ulcer of right foot associated with diabetes mellitus due to underlying condition, with necrosis of bone Status: Acute (2) Gangrene of right foot Narrative/Plan: 61-year-old male presents to the office today with evidence of the marked worsening to the diabetic foot ulceration of his right foot. There is evidence of worsening gangrenous changes. Necrotic bone was exposed and easily peeled out of the base of the ulceration. There is also worsened with dry gangrenous changes to the lateral aspect of the foot. The case is discussed with the vascular surgeon. The patient's primary care physician was contacted and ranges were made for admission. The patient has been admitted. He will be seen by cardiology and then proceed to a below-knee amputation in the near future. He has had extensive vascular evaluations performed recently. He's also had some procedures the failed to allow significant improvement of the foot. The patient at this time relates he looks forward to amputation to improve his quality of life. Hopefully they gets up on the 2 prosthesis he will do relatively well. As noted he had a gastric bypass procedure he's lost more than 200 pounds and this has allowed him to be quite mobile with his left leg prosthesis. He is highly motivated and hopefully will be able to ambulate with 2 prosthesis. Antibiotic therapy at this point in time as directed for the most recent culture with vancomycin and ceftazidime zuhaire acietnobacter are being utilized for now. Leukocytosis due to the gangrenous changes. Cardiology clearance and then surgery likely tomorrow for the below the knee amputation. Status: Acute (3) Leukocytosis Status: Acute (4) End-stage renal disease on peritoneal dialysis Status: Acute
[2017-02-25] MEDS: SODIUM CHLORIDE 0.9% 1,000 ML IV SCH (22:56)
[2017-02-25] MEDS: DIALYSIS (PERIT 1.5%) 2,000 ML 30 G/2,000 ML BAG INTRAPERIT SCH (22:57)
[2017-02-25] MEDS: TEMAZEPAM 15 MG CAP PO PRN (23:28)
[2017-02-26 04:44] LABS: Basophils % (A) 0 %; CH 27.1; CHCM 30.4; Eosinophils % (A) 0 %; HCT 38.7 % (39.0-53.0); HDW 2.77; Hypochromasia Moderate; Luc # (Auto) 0.17; Luc % (Auto) 2; Lymphocytes # (A) 1.6 k/uL (1.0-4.8); Lymphocytes % (A) 21 %; MCH 27.7 pg (25.0-35.0); MCV 89.5 fL (80.0-100.0); Mean Platelet Volume 7.5; Monocytes # (A) 0.4 k/uL (0-1.0); Monocytes % (A) 6 %; Neutrophils # (A) 5.5 k/uL (1.3-7.7); Neutrophils % (A) 70 %; RBC 4.32 m/uL (4.30-5.90); RDW 14.5 % (11.5-15.5); WBC 7.8 k/uL (3.8-10.6); WBC (Perox) 7.85
[2017-02-26 05:04] LABS: Calcium 8.7 mg/dL (8.4-10.2); Potassium 4.1 mmol/L (3.5-5.1); Total Bilirubin 0.2 mg/dL (0.2-1.3); Total Protein 4.7 g/dL (6.3-8.2)
[2017-02-26] MEDS: DIALYSIS (PERIT 2.5%) 2,000 ML 50 G/2,000 ML BAG INTRAPERIT SCH ×3 (05:26→18:16)
[2017-02-26] MEDS ORDERED: IV FLUID CONTINUATION 1,000 ML IV ONE (06:16)
[2017-02-26 06:33] LABS: Glucose,Whole Blood 106 mg/dL (75-99)
[2017-02-26] MEDS ORDERED: VANCOMYCIN 1,000 MG in SODIUM CHLORIDE 0.9% 250 ML IVPB STA (07:09)
[2017-02-26] MEDS ORDERED: MIDAZOLAM 2 MG/2 ML VIAL ONE (07:27)
[2017-02-26] MEDS ORDERED: HYDROmorphone (PF) 1 MG/ML ONE (07:27)
[2017-02-26] MEDS ORDERED: NEOSTIGMINE 1 MG/ML 10 ML VIAL ONE (07:27)
[2017-02-26] MEDS ORDERED: CISATRACURIUM 2 MG/ML 5 ML VIAL IV ONE (07:27)
[2017-02-26] MEDS ORDERED: KETAMINE 10 MG/ML 20 ML VIAL ONE (07:27)
[2017-02-26] MEDS ORDERED: LIDOCAINE 1% INJ 10MG/ML (20 ML MDV) ONE (07:27)
[2017-02-26] MEDS ORDERED: PHENYLEPHRINE-0.9% NACL SYG 1 MG/10 ML SYRINGE ONE (07:27)
[2017-02-26] MEDS ORDERED: PROPOFOL 10 MG/ML 20 ML VIAL IV ONE (07:27)
[2017-02-26] MEDS ORDERED: SUCCINYLCHOLINE CHLORIDE 100 MG/5 ML SYR IV ONE (07:27)
[2017-02-26] MEDS ORDERED: GLYCOPYRROLATE 0.2 MG/ML 2 ML VIAL ONE (07:27)
[2017-02-26] MEDS ORDERED: fentaNYL (PF) 50 MCG/ML 2 ML AMP ONE (07:27)
[2017-02-26] MEDS ORDERED: ePHEDrine SULFATE/0.9% NACL/PF 50 MG/5 ML SYRINGE IV ONE (07:27)
[2017-02-26] MEDS ORDERED: SODIUM CHLORIDE 0.9% 50 ML with ceFAZolin 2,000 MG IV ONE ×2 (07:56)
[2017-02-26] MEDS: INSULIN LISPRO (humaLOG) 300 UNIT/3 ML VIAL SQ SCH ×4 (08:07→21:55)
[2017-02-26 10:09] LABS: Glucose,Whole Blood 137 mg/dL (75-99)
[2017-02-26] MEDS: HYDROmorphone 1 MG/ML 1 ML SYRINGE IVP PRN ×2 (10:49→14:40)
[2017-02-26] MEDS: PANTOPRAZOLE 40 MG TABLET PO SCH (11:07)
[2017-02-26] MEDS: FERROUS SULFATE 325 MG TAB PO SCH ×2 (11:09→21:55)
[2017-02-26] MEDS: HEPARIN SODIUM,PORCINE 5,000 UNIT/ML 1 ML VIAL SQ SCH ×2 (11:09→21:55)
--- NOTE | 2017-02-26 11:11 | P.PN ---
Subjective patient is seen in follow-up for end-stage renal disease. He is maintained on peritoneal dialysis. Patient is currently being treated for right toe gangrene - underwent right below the knee amputation this morning. Currently resting in bed. Admits to pain at the surgical site. No problems with peritoneal dialysis. Dialysis fluid is clear. Hemodynamically stable. Denies abdominal pain. Vital signs are stable. General: The patient appeared well nourished and normally developed. HEENT: Head exam is unremarkable. Neck is without jugular venous distension. LUNGS: Lungs are clear to auscultation and percussion. Breath sounds decreased. HEART: Rate and Rhythm are regular. First and second heart sounds normal. No murmurs, rubs or gallops. ABDOMEN: Abdominal exam reveals normal bowel sounds. Non-tender and non- distended. No evidence of peritonitis. EXTREMITITES: Bilateral [id number] amputations noted. Right lower extremity stump wrapped with no obvious drainage. Objective - Vital Signs Vital signs: Vital Signs Temp 97.6 F 02/26/17 09:54 Pulse 82 02/26/17 10:18 Resp 16 02/26/17 10:18 BP 149/61 02/26/17 10:18 Pulse Ox 100 02/26/17 10:18 Intake & Output 02/25/17 02/26/17 02/26/17 18:59 06:59 18:59 Intake Total 240 800 Output Total 200 Balance 240 600 Weight 77.5 kg Intake: IV 800 Oral 240 Output: Estimated Blood Loss 200 Other: # Voids 2 - Labs CBC & Chem 7: 02/26/17 04:05 02/26/17 04:05 Labs: Abnormal Lab Results - Last 24 Hours (Table) 02/25/17 02/25/17 02/26/17 Range/Units 12:01 20:48 04:05 Hgb 12.0 L (13.0-17.5) gm/dL Hct 38.7 L (39.0-53.0) % Sodium (137-145) mmol/L BUN (9-20) mg/dL Creatinine (0.66-1.25) mg/dL Glucose (74-99) mg/dL POC Glucose (mg/dL) 274 H 185 H (75-99) mg/dL Total Protein (6.3-8.2) g/dL Albumin (3.5-5.0) g/dL 02/26/17 02/26/17 02/26/17 Range/Units 04:05 06:26 10:07 Hgb (13.0-17.5) gm/dL Hct (39.0-53.0) % Sodium 133 L (137-145) mmol/L BUN 27 H (9-20) mg/dL Creatinine 2.90 H (0.66-1.25) mg/dL Glucose 117 H (74-99) mg/dL POC Glucose (mg/dL) 106 H 137 H (75-99) mg/dL Total Protein 4.7 L (6.3-8.2) g/dL Albumin 2.2 L (3.5-5.0) g/dL Microbiology - Last 24 Hours (Table) 02/23/17 14:50 Gram Stain - Final Foot - Right Wound Culture - Final Acinetobacter peter/haemol Assessment and Plan Plan: Assessment: #1. End-stage renal disease maintained on peritoneal dialysis. #2. 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 #3. History of donor renal allograft from [facility] in 2010. Now being weaned off immunosuppression. #4. History of left below the knee amputation. #5. Diabetes mellitus. Plan: Continue with peritoneal dialysis exchanges with 2 L every 6 hours alternating with 1.5 and 2.5% solution. Antibiotics per infectious disease recommendations. Vascular surgery following.
[2017-02-26 11:31] LABS: Glucose,Whole Blood 164 mg/dL (75-99)
[2017-02-26] MEDS ORDERED: HYDROmorphone 1 MG/ML 1 ML SYRINGE IVP STA (12:00)
[2017-02-26] MEDS: FUROSEMIDE 20 MG TAB PO SCH ×2 (12:17→15:51)
[2017-02-26] MEDS: MIDODRINE 5 MG TAB PO SCH (12:53)
[2017-02-26] MEDS: TACROLIMUS 1 MG CAP PO SCH ×2 (12:53→21:59)
[2017-02-26] MEDS: MYCOPHENOLATE SODIUM DR 180 MG TABLET.DR PO SCH (12:53)
[2017-02-26] MEDS: SODIUM BICARBONATE TAB 650 MG TAB PO SCH ×2 (12:53→21:56)
[2017-02-26] MEDS: predniSONE 5 MG TAB PO SCH (12:53)
[2017-02-26] MEDS: VIT A,C & E-LUTEIN-MINERALS 1 EACH TAB PO SCH (12:54)
[2017-02-26] MEDS: MAGNESIUM OXIDE 400 MG TAB PO SCH (12:54)
[2017-02-26] MEDS: FOLIC ACID-VIT B COMPLEX-VIT C 1 CAP PO SCH (12:54)
[2017-02-26] MEDS: CALCITRIOL 0.25 MCG CAP PO SCH (12:54)
[2017-02-26 17:19] LABS: Glucose,Whole Blood 270 mg/dL (75-99)
[2017-02-26] MEDS: HYDROmorphone 2 MG/ML 1 ML SYRINGE IVP PRN ×3 (17:22→23:53)
--- NOTE | 2017-02-26 17:34 | P.PN ---
Subjective This is a 61-year-old male with a known history of chronic renal failure with right kidney transplant on peritoneal dialysis. Also has a history of coronary artery disease with previous coronary artery bypass grafting, atrial fibrillation, DVT of the lower extremity with a Melissa filter placed, hypertension and hyperlipidemia. diabetes mellitus type 2, peripheral vascular disease, left BKA, previous hospital admission in January with necrosis of the right second and third toe requiring amputation of those toes on 01/09/2017. Patient also had angioplasty and stent placement to the right anterior tibial artery by cardiology during that admission. Since that admission in January he has had issues with that right foot. He has necrotic tissue on the pad of the foot. There is also some necrotic changes along the lateral aspect of the foot. The posterior part of the foot is red and warm. There is a follow odor present per patient. Patient noted changes of the last 2 weeks. He's been following up with Dr. Nino in the wound care center. He reports he has been on Bactrim in the outpatient setting. Patient was at Dr. Nino office for routine visit and was told to go see Dr. Mosquera and be directly admitted to the hospital for possible amputation of the foot. Patient is also noted some discharge and follow odor from the open area of the ulcer on top of his foot. Patient denies any fever or chills or sweats. Denies any nausea or vomiting. Denies any bowel movement changes or urinary symptoms. Objective - Vital Signs Vital signs: Vital Signs Temp 97.1 F L 02/26/17 15:00 Pulse 82 02/26/17 15:00 Resp 16 02/26/17 15:00 BP 169/68 02/26/17 15:00 Pulse Ox 100 02/26/17 15:00 Intake & Output 02/25/17 02/26/17 02/26/17 18:59 06:59 18:59 Intake Total 240 800 Output Total 200 Balance 240 600 Weight 77.5 kg Intake: IV 800 Oral 240 Output: Estimated Blood Loss 200 Other: Voiding Method Urinal # Voids 2 0 - Exam In general patient is alert and oriented in no apparent distress HEENT head normocephalic and atraumatic Neck is supple no JVD no goiter no lymphadenopathy Chest exam is clear to auscultation no crackles no wheezing Cardiac exam reveals regular heart sounds S1 and S2 no gallops no murmurs Abdomen is soft nontender no organomegaly with normal bowel sounds Extremity exam reveals bilateral below knee amputation - Labs CBC & Chem 7: 02/26/17 04:05 02/26/17 04:05 Labs: Abnormal Lab Results - Last 24 Hours (Table) 02/25/17 02/26/17 02/26/17 Range/Units 20:48 04:05 04:05 Hgb 12.0 L (13.0-17.5) gm/dL Hct 38.7 L (39.0-53.0) % Sodium 133 L (137-145) mmol/L BUN 27 H (9-20) mg/dL Creatinine 2.90 H (0.66-1.25) mg/dL Glucose 117 H (74-99) mg/dL POC Glucose (mg/dL) 185 H (75-99) mg/dL Total Protein 4.7 L (6.3-8.2) g/dL Albumin 2.2 L (3.5-5.0) g/dL 02/26/17 02/26/17 02/26/17 Range/Units 06:26 10:07 11:27 Hgb (13.0-17.5) gm/dL Hct (39.0-53.0) % Sodium (137-145) mmol/L BUN (9-20) mg/dL Creatinine (0.66-1.25) mg/dL Glucose (74-99) mg/dL POC Glucose (mg/dL) 106 H 137 H 164 H (75-99) mg/dL Total Protein (6.3-8.2) g/dL Albumin (3.5-5.0) g/dL 02/26/17 Range/Units 17:12 Hgb (13.0-17.5) gm/dL Hct (39.0-53.0) % Sodium (137-145) mmol/L BUN (9-20) mg/dL Creatinine (0.66-1.25) mg/dL Glucose (74-99) mg/dL POC Glucose (mg/dL) 270 H (75-99) mg/dL Total Protein (6.3-8.2) g/dL Albumin (3.5-5.0) g/dL Microbiology - Last 24 Hours (Table) 02/23/17 14:50 Anaerobic Culture - Preliminary Foot - Right Anaerobic Gram Positive Cocci 02/23/17 14:50 Gram Stain - Final Foot - Right Wound Culture - Final Acinetobacter peter/haemol Assessment and Plan Plan: 1. Right foot is ulcer with necrotic skin changes: Had been on Bactrim outpatient with no improvement. Consult infectious disease. Wound cultures ordered. Antibiotics per infectious disease. patient had evidence of Right foot gangrene s/p below knee amputation today. 2. Known diabetic ulcer of the right foot with peripheral vascular disease status post angioplasty and stent placement to the right anterior tibial artery by cardiology in January 2017. Patient is also status post amputation of the right second and third toe on 01/09/2017 3. Chronic kidney disease stage V with history of right kidney transplant secondary to his diabetes mellitus. Patient currently on peritoneal dialysis. Consult from nephrology placed 4. Diabetes mellitus type 2. We'll place patient on Humalog sliding scale. Previous hemoglobin A1c was 4.7 5. Chronic atrial fibrillation: Coumadin discontinued on last admission 6. History of peripheral vascular disease secondary to his diabetes mellitus and required a left below the knee amputation 7. Chronic systolic CHF: No evidence of exacerbation. Echo from September 2016 shows an EF of 45-50% 8. Anemia of chronic kidney disease with iron deficiency anemia. 9. History of coronary artery disease with previous coronary artery bypass grafting 10. For pain management pain is not well controlled at this time dose of Dilaudid increased to 1.5 mg IV every 3 hours as needed plan for surgery tomorrow continue current care otherwise
[2017-02-26] MEDS ORDERED: VANCOMYCIN 1,500 MG in SODIUM CHLORIDE 0.9% 250 ML IVPB ONE (18:00)
[2017-02-26 21:00] LABS: Glucose,Whole Blood 229 mg/dL (75-99)
--- NOTE | 2017-02-26 21:10 | P.PN ---
Subjective Principal diagnosis: Gangrene right foot Pleasant 61-year-old male who has a history of diabetes mellitus type 2 with many complications that includes end-stage renal disease. He did have a renal transplantation but that has failed. And now undergoes chronic and which were approaching hemodialysis for the renal failure. 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 The patient relates that he is doing modestly well as of late. He did have foot evaluation some toenail cutting performed. Now 3 weeks later he developed evidence of a blister onto his right foot associated with erythema and swelling to the residual second toe. With his neuropathy is not having pain but is very concerned given the left [id number] amputation for limb salvage. Patient denies any known trauma but patient was hospitalized during the summer. At that point in time he was having difficulties with volume overload. This resulted in significant edema which worsen the process to the right foot. He had a significant surgical intervention with amputation of the great and second toe. Despite the surgical intervention is been having nonhealing to the area. He is followed in the wound healing center as well as vascular surgery. He developed increasing discoloration to the lateral aspect of the right foot. Evaluation revealed evidence of severe peripheral vascular disease. The patient did present to the outpatient clinic today and was advised for admission for surgical intervention. There is evidence of bone fragments migrating out of the foot ulceration and worsening of the dry gangrenous changes to the lateral aspect of the foot. The patient also was not feeling well due to the significant infectious process. He is now status post a right [id number]-[id number] amputation. Is having significant pain postoperative. Objective - Vital Signs Vital signs: Vital Signs Temp 96.8 F L 02/26/17 19:50 Pulse 88 02/26/17 19:50 Resp 16 02/26/17 19:50 BP 101/55 02/26/17 19:50 Pulse Ox 100 02/26/17 19:50 Intake & Output 02/26/17 02/26/17 02/27/17 06:59 18:59 06:59 Intake Total 800 Output Total 200 Balance 600 Weight 77.5 kg Intake: IV 800 Output: Drainage 0 Right Lower 0 Estimated Blood Loss 200 Other: Voiding Method Urinal # Voids 0 - Exam Jasbir 61-year-old male presents to Hospital with significant change to his right foot. HEENT: Anicteric conjunctiva are pink and moist nasal mucosa grossly intact without significant lesions, there is no thrush. Neck: The neck is supple without significant lymphadenopathy or thyromegaly. Lungs: Good bilateral air entry without significant crackles or wheezing. There is no significant bronchial sounds. There is no egophony or dullness. Heart: Irregular with an audible S1 and S2. No S3 soft S4, 2/6 systolic murmur left sternal border is holosystolic. Abdomen: Positive bowel sounds soft and nontender without palpable masses or organomegaly. There was no guarding or rebound. Extremities: The prior shunt to the left arm is only minimal thrill and apparently is not functional for hemodialysis. The left lower extremity below the knee amputation residual limb is in good order. There is no erythema or crepitance or fluctuance. 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 The right lower extremity shows evidence of the postoperative dressing for the fppgp-fxa-ufeh amputation, dry and intact. Neuro: Awake alert oriented to person place and time. He has dense severe peripheral neuropathy - Labs CBC & Chem 7: 02/26/17 04:05 02/26/17 04:05 Labs: Abnormal Lab Results - Last 24 Hours (Table) 02/26/17 02/26/17 02/26/17 Range/Units 04:05 04:05 06:26 Hgb 12.0 L (13.0-17.5) gm/dL Hct 38.7 L (39.0-53.0) % Sodium 133 L (137-145) mmol/L BUN 27 H (9-20) mg/dL Creatinine 2.90 H (0.66-1.25) mg/dL Glucose 117 H (74-99) mg/dL POC Glucose (mg/dL) 106 H (75-99) mg/dL Total Protein 4.7 L (6.3-8.2) g/dL Albumin 2.2 L (3.5-5.0) g/dL 02/26/17 02/26/17 02/26/17 Range/Units 10:07 11:27 17:12 Hgb (13.0-17.5) gm/dL Hct (39.0-53.0) % Sodium (137-145) mmol/L BUN (9-20) mg/dL Creatinine (0.66-1.25) mg/dL Glucose (74-99) mg/dL POC Glucose (mg/dL) 137 H 164 H 270 H (75-99) mg/dL Total Protein (6.3-8.2) g/dL Albumin (3.5-5.0) g/dL 02/26/17 Range/Units 20:44 Hgb (13.0-17.5) gm/dL Hct (39.0-53.0) % Sodium (137-145) mmol/L BUN (9-20) mg/dL Creatinine (0.66-1.25) mg/dL Glucose (74-99) mg/dL POC Glucose (mg/dL) 229 H (75-99) mg/dL Total Protein (6.3-8.2) g/dL Albumin (3.5-5.0) g/dL Microbiology - Last 24 Hours (Table) 02/23/17 14:50 Anaerobic Culture - Preliminary Foot - Right Anaerobic Gram Positive Cocci 02/23/17 14:50 Gram Stain - Final Foot - Right Wound Culture - Final Acinetobacter peter/haemol Laboratory Results WBC 7.8 k/uL (3.8-10.6) 02/26/17 04:05 RBC 4.32 m/uL (4.30-5.90) 02/26/17 04:05 Hgb 12.0 gm/dL (13.0-17.5) L 02/26/17 04:05 Hct 38.7 % (39.0-53.0) L 02/26/17 04:05 MCV 89.5 fL (80.0-100.0) 02/26/17 04:05 MCH 27.7 pg (25.0-35.0) 02/26/17 04:05 MCHC 31.0 g/dL (31.0-37.0) 02/26/17 04:05 RDW 14.5 % (11.5-15.5) 02/26/17 04:05 Plt Count 371 k/uL (150-450) 02/26/17 04:05 Neutrophils % 70 % 02/26/17 04:05 Lymphocytes % 21 % 02/26/17 04:05 Monocytes % 6 % 02/26/17 04:05 Eosinophils % 0 % 02/26/17 04:05 Basophils % 0 % 02/26/17 04:05 Neutrophils # 5.5 k/uL (1.3-7.7) 02/26/17 04:05 Lymphocytes # 1.6 k/uL (1.0-4.8) 02/26/17 04:05 Monocytes # 0.4 k/uL (0-1.0) 02/26/17 04:05 Eosinophils # 0.0 k/uL (0-0.7) 02/26/17 04:05 Basophils # 0.0 k/uL (0-0.2) 02/26/17 04:05 Hypochromasia Moderate 02/26/17 04:05 Sodium 133 mmol/L (137-145) L 02/26/17 04:05 Potassium 4.1 mmol/L (3.5-5.1) 02/26/17 04:05 Chloride 103 mmol/L (98-107) 02/26/17 04:05 Carbon Dioxide 23 mmol/L (22-30) 02/26/17 04:05 Anion Gap 7 mmol/L 02/26/17 04:05 BUN 27 mg/dL (9-20) H 02/26/17 04:05 Creatinine 2.90 mg/dL (0.66-1.25) H 02/26/17 04:05 Est GFR (MDRD) Af Amer 27 (>60 ml/min/1.73 sqM) 02/26/17 04:05 Est GFR (MDRD) Non-Af 22 (>60 ml/min/1.73 sqM) 02/26/17 04:05 Glucose 117 mg/dL (74-99) H 02/26/17 04:05 POC Glucose (mg/dL) 229 mg/dL (75-99) H 02/26/17 20:44 POC Glu Feeder Driver ID Barbara Onofre 02/26/17 20:44 Calcium 8.7 mg/dL (8.4-10.2) 02/26/17 04:05 Phosphorus 3.3 mg/dL (2.5-4.5) 02/24/17 08:27 Total Bilirubin 0.2 mg/dL (0.2-1.3) 02/26/17 04:05 AST 23 U/L (17-59) 02/26/17 04:05 ALT 43 U/L (21-72) 02/26/17 04:05 Alkaline Phosphatase 84 U/L (38-126) 02/26/17 04:05 Total Protein 4.7 g/dL (6.3-8.2) L 02/26/17 04:05 Albumin 2.2 g/dL (3.5-5.0) L 02/26/17 04:05 Random Vancomycin 15.1 ug/mL 02/26/17 04:05 Blood Type A Positive 02/26/17 04:05 Blood Type Recheck No 02/26/17 04:05 Antibody Screen NEGATIVE 02/26/17 04:05 Spec Expiration Date 03/01/2017 - 2305 02/26/17 04:05 Microbiology 02/23/17 14:50 Foot - Right Anaerobic Culture - Preliminary Anaerobic Gram Positive Cocci 02/23/17 14:50 Foot - Right Gram Stain - Final 02/23/17 14:50 Foot - Right Wound Culture - Final Acinetobacter peter/haemol Assessment and Plan (1) Diabetic ulcer of right foot associated with diabetes mellitus due to underlying condition, with necrosis of bone Status: Acute (2) Gangrene of right foot Narrative/Plan: 61-year-old male presents to the office today with evidence of the marked worsening to the diabetic foot ulceration of his right foot. There is evidence of worsening gangrenous changes. Necrotic bone was exposed and easily peeled out of the base of the ulceration. There is also worsened with dry gangrenous changes to the lateral aspect of the foot. The case is discussed with the vascular surgeon. The patient's primary care physician was contacted and ranges were made for admission. The patient has been admitted. He will be seen by cardiology and then proceed to a below-knee amputation in the near future. He has had extensive vascular evaluations performed recently. He's also had some procedures the failed to allow significant improvement of the foot. The patient at this time relates he looks forward to amputation to improve his quality of life. Hopefully they gets up on the 2 prosthesis he will do relatively well. As noted he had a gastric bypass procedure he's lost more than 200 pounds and this has allowed him to be quite mobile with his left leg prosthesis. He is highly motivated and hopefully will be able to ambulate with 2 prosthesis. Antibiotic therapy at this point in time as directed for the most recent culture with vancomycin and ceftazidime foe acietnobacter are being utilized for now. Leukocytosis due to the gangrenous changes. The right kkwrn-[id number] amputation has occurred. We'll plan into his antibiotic therapy for the next several days. Status: Acute (3) Leukocytosis Status: Acute (4) End-stage renal disease on peritoneal dialysis Status: Acute
[2017-02-26] MEDS: ATORVASTATIN 80 MG TAB PO SCH (21:54)
[2017-02-26] MEDS: CHOLECALCIFEROL 1,000 UNIT TAB PO SCH (21:55)
[2017-02-26] MEDS: HYDROcodone/APAP 5-325MG 1 EACH TAB PO PRN (21:56)
[2017-02-26] MEDS: DIALYSIS (PERIT 1.5%) 2,000 ML 30 G/2,000 ML BAG INTRAPERIT SCH (23:02)
[2017-02-27] MEDS: SODIUM CHLORIDE 0.9% 1,000 ML IV SCH ×2 (00:27→23:36)
[2017-02-27] MEDS: TEMAZEPAM 15 MG CAP PO PRN ×2 (01:10→23:45)
[2017-02-27] MEDS: HYDROmorphone 2 MG/ML 1 ML SYRINGE IVP PRN ×7 (02:57→23:45)
[2017-02-27] MEDS: HYDROcodone/APAP 5-325MG 1 EACH TAB PO PRN ×3 (04:08→20:54)
[2017-02-27] MEDS: DIALYSIS (PERIT 2.5%) 2,000 ML 50 G/2,000 ML BAG INTRAPERIT SCH ×3 (05:35→17:51)
[2017-02-27 07:15] LABS: Glucose,Whole Blood 139 mg/dL (75-99)
--- NOTE | 2017-02-27 08:24 | P.PN ---
Subjective patient is seen in follow-up for end-stage renal disease. He is maintained on peritoneal dialysis. Patient is currently being treated for right toe gangrene - underwent right below the knee amputation 02/26/17. Currently resting in bed. Admits to pain at the surgical site but improved since yesterday. He is currently having breakfast. No problems with peritoneal dialysis. Dialysis fluid is clear. Hemodynamically stable. Denies abdominal pain. Vital signs are stable. General: The patient appeared well nourished and normally developed. HEENT: Head exam is unremarkable. Neck is without jugular venous distension. LUNGS: Lungs are clear to auscultation and percussion. Breath sounds decreased. HEART: Rate and Rhythm are regular. First and second heart sounds normal. No murmurs, rubs or gallops. ABDOMEN: Abdominal exam reveals normal bowel sounds. Non-tender and non- distended. No evidence of peritonitis. EXTREMITITES: Bilateral ralmq-rvn-[id number] amputations noted. Right lower extremity stump wrapped with drain in place. Objective - Vital Signs Vital signs: Vital Signs Temp 97.8 F 02/27/17 05:36 Pulse 79 02/27/17 05:36 Resp 16 02/27/17 05:36 BP 122/56 02/27/17 05:36 Pulse Ox 98 02/27/17 05:36 Intake & Output 02/26/17 02/27/17 02/27/17 18:59 06:59 18:59 Intake Total 800 550 Output Total 200 Balance 600 550 Weight 82.5 kg Intake: IV 800 Oral 550 Output: Drainage 0 Right Lower 0 Estimated Blood Loss 200 Other: Voiding Method Urinal # Voids 0 0 - Labs CBC & Chem 7: 02/26/17 04:05 02/26/17 04:05 Labs: Abnormal Lab Results - Last 24 Hours (Table) 02/26/17 02/26/17 02/26/17 Range/Units 10:07 11:27 17:12 POC Glucose (mg/dL) 137 H 164 H 270 H (75-99) mg/dL 02/26/17 02/27/17 Range/Units 20:44 07:10 POC Glucose (mg/dL) 229 H 139 H (75-99) mg/dL Microbiology - Last 24 Hours (Table) 02/23/17 14:50 Anaerobic Culture - Preliminary Foot - Right Anaerobic Gram Positive Cocci 02/23/17 14:50 Gram Stain - Final Foot - Right Wound Culture - Final Acinetobacter peter/haemol Assessment and Plan Plan: Assessment: #1. End-stage renal disease maintained on peritoneal dialysis. #2. 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 #3. 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 Now being weaned off immunosuppression. #4. History of left below the knee amputation. #5. Diabetes mellitus. Plan: Continue with peritoneal dialysis exchanges with 2 L every 6 hours alternating with 1.5 and 2.5% solution. Antibiotics per infectious disease recommendations. Vascular surgery following. D/c prednisone for now as it can impair wound healing.
[2017-02-27] MEDS: INSULIN LISPRO (humaLOG) 300 UNIT/3 ML VIAL SQ SCH ×4 (08:26→22:09)
[2017-02-27] MEDS: PANTOPRAZOLE 40 MG TABLET PO SCH (08:27)
[2017-02-27] MEDS: MYCOPHENOLATE SODIUM DR 180 MG TABLET.DR PO SCH (08:27)
[2017-02-27] MEDS: FUROSEMIDE 20 MG TAB PO SCH ×2 (08:28→17:16)
[2017-02-27] MEDS: TACROLIMUS 1 MG CAP PO SCH ×2 (08:28→20:53)
[2017-02-27] MEDS: SODIUM BICARBONATE TAB 650 MG TAB PO SCH ×2 (08:28→20:53)
[2017-02-27] MEDS: MIDODRINE 5 MG TAB PO SCH (08:29)
[2017-02-27] MEDS: predniSONE 5 MG TAB PO SCH (08:29)
[2017-02-27] MEDS: HEPARIN SODIUM,PORCINE 5,000 UNIT/ML 1 ML VIAL SQ SCH ×2 (08:29→22:08)
[2017-02-27] MEDS: FERROUS SULFATE 325 MG TAB PO SCH (08:29)
[2017-02-27 09:41] LABS: Basophils % (A) 0 %; CH 26.9; Eosinophils % (A) 0 %; HCT 36.1 % (39.0-53.0); HDW 2.73; HGB 10.7 gm/dL (13.0-17.5); Hypochromasia Marked; Luc # (Auto) 0.19; Luc % (Auto) 1; Lymphocytes # (A) 0.9 k/uL (1.0-4.8); Lymphocytes % (A) 7 %; MCH 27.5 pg (25.0-35.0); MCHC 29.6 g/dL (31.0-37.0); MCV 93.1 fL (80.0-100.0); Mean Platelet Volume 7.5; Monocytes # (A) 0.6 k/uL (0-1.0); Monocytes % (A) 5 %; Neutrophils # (A) 11.6 k/uL (1.3-7.7); Neutrophils % (A) 87 %; RBC 3.88 m/uL (4.30-5.90); RDW 14.3 % (11.5-15.5); WBC 13.3 k/uL (3.8-10.6); WBC (Perox) 14.08
[2017-02-27 10:17] LABS: ALT 29 U/L (21-72); AST 22 U/L (17-59); Alkaline Phosphatase 68 U/L (38-126); Anion Gap 9 mmol/L; Blood Urea Nitrogen 28 mg/dL (9-20); Calcium 8.2 mg/dL (8.4-10.2); Carbon Dioxide 24 mmol/L (22-30); Chloride 101 mmol/L (98-107); Glucose 177 mg/dL (74-99); Non-African American GFR(MDRD) 22 (>60 ml/min/1.73 sqM); Potassium 4.2 mmol/L (3.5-5.1); Sodium 134 mmol/L (137-145); Total Bilirubin <0.1 mg/dL (0.2-1.3); Total Protein 4.3 g/dL (6.3-8.2)
[2017-02-27] MEDS: VIT A,C & E-LUTEIN-MINERALS 1 EACH TAB PO SCH (11:50)
[2017-02-27] MEDS: CALCITRIOL 0.25 MCG CAP PO SCH (11:50)
[2017-02-27] MEDS: MAGNESIUM OXIDE 400 MG TAB PO SCH (11:50)
[2017-02-27] MEDS: FOLIC ACID-VIT B COMPLEX-VIT C 1 CAP PO SCH (11:50)
[2017-02-27] MEDS ORDERED: ONDANSETRON 4 MG/2 ML VIAL IVP PRN (12:23)
[2017-02-27 12:25] LABS: Glucose,Whole Blood 180 mg/dL (75-99)
--- NOTE | 2017-02-27 14:44 | P.PN ---
Subjective This is a 61-year-old male patient we are seeing in consultation for pre- surgical clearance. Today is postoperative day #1. He is seen today sitting up in bed undergoing peritoneal dialysis. He is in no acute distress. Denies chest pain, shortness of breath, dizziness, palpitations or nausea/vomiting. Objective - Vital Signs Vital signs: Vital Signs Temp 97.1 F L 02/27/17 07:00 Pulse 79 02/27/17 07:00 Resp 17 02/27/17 07:00 BP 139/47 02/27/17 07:00 Pulse Ox 97 02/27/17 07:00 Intake & Output 02/26/17 02/27/17 02/27/17 18:59 06:59 18:59 Intake Total 700 659 7713 Output Total 200 Balance 501 787 0386 Weight 82.5 kg Intake: IV 800 Oral 550 1200 Output: Drainage 0 Right Lower 0 Estimated Blood Loss 200 Other: Voiding Method Urinal # Voids 0 0 0 # Bowel Movements 0 - Exam GENERAL: Well-appearing, well-nourished and in no acute distress. NECK: Supple without JVD or thyromegaly. LUNGS: Breath sounds clear to auscultation bilaterally. Respiration equal and unlabored. No wheezes, rales or rhonchi. HEART: Regular rate and rhythm with systolic ejection murmur at the base, no rubs or gallops. S1 and S2 heard. EXTREMITIES: Normal range of motion, no edema. No clubbing or cyanosis. Dressing in place to right lower extremity. - Labs CBC & Chem 7: 02/27/17 09:09 02/27/17 09:09 Labs: Abnormal Lab Results - Last 24 Hours (Table) 02/26/17 02/26/17 02/27/17 Range/Units 17:12 20:44 07:10 WBC (3.8-10.6) k/uL RBC (4.30-5.90) m/uL Hgb (13.0-17.5) gm/dL Hct (39.0-53.0) % MCHC (31.0-37.0) g/dL Neutrophils # (1.3-7.7) k/uL Lymphocytes # (1.0-4.8) k/uL Sodium (137-145) mmol/L BUN (9-20) mg/dL Creatinine (0.66-1.25) mg/dL Glucose (74-99) mg/dL POC Glucose (mg/dL) 270 H 229 H 139 H (75-99) mg/dL Calcium (8.4-10.2) mg/dL Total Bilirubin (0.2-1.3) mg/dL Total Protein (6.3-8.2) g/dL Albumin (3.5-5.0) g/dL 02/27/17 02/27/17 02/27/17 Range/Units 09:09 09:09 12:22 WBC 13.3 H (3.8-10.6) k/uL RBC 3.88 L (4.30-5.90) m/uL Hgb 10.7 L (13.0-17.5) gm/dL Hct 36.1 L (39.0-53.0) % MCHC 29.6 L (31.0-37.0) g/dL Neutrophils # 11.6 H (1.3-7.7) k/uL Lymphocytes # 0.9 L (1.0-4.8) k/uL Sodium 134 L (137-145) mmol/L BUN 28 H (9-20) mg/dL Creatinine 2.95 H (0.66-1.25) mg/dL Glucose 177 H (74-99) mg/dL POC Glucose (mg/dL) 180 H (75-99) mg/dL Calcium 8.2 L (8.4-10.2) mg/dL Total Bilirubin <0.1 L (0.2-1.3) mg/dL Total Protein 4.3 L (6.3-8.2) g/dL Albumin 2.0 L (3.5-5.0) g/dL Microbiology - Last 24 Hours (Table) 02/23/17 14:50 Anaerobic Culture - Final Foot - Right Anaerobic Gram Positive Cocci 02/23/17 14:50 Gram Stain - Final Foot - Right Wound Culture - Final Acinetobacter peter/haemol Assessment and Plan Plan: ASSESSMENT 1. History of CAD with triple-vessel CABG 2. Paroxysmal atrial fibrillation, rate controlled 3. Severe peripheral vascular disease 4. Diabetes mellitus 5. Chronic kidney disease on peritoneal dialysis status post transplant rejection 6. Left BKA 7. Chronic stable systolic heart failure PLAN Continue current medication regimen including beta eitan, statin and ASA. Resume plavis as soon as is ok with vascular surgery. We will see this patient on an as needed basis. He should follow up with Dr. Gomez as an outpatient in 2 weeks. Nurse Practitioner note has been reviewed, I agree with a documented findings and plan of care. Patient was seen and examined.
--- NOTE | 2017-02-27 16:00 | P.PN ---
Subjective This is a 61-year-old male with a known history of chronic renal failure with right kidney transplant on peritoneal dialysis. Also has a history of coronary artery disease with previous coronary artery bypass grafting, atrial fibrillation, DVT of the lower extremity with a Melissa filter placed, hypertension and hyperlipidemia. diabetes mellitus type 2, peripheral vascular disease, left BKA, previous hospital admission in January with necrosis of the right second and third toe requiring amputation of those toes on 01/09/2017. Patient also had angioplasty and stent placement to the right anterior tibial artery by cardiology during that admission. Since that admission in January he has had issues with that right foot. He has necrotic tissue on the pad of the foot. There is also some necrotic changes along the lateral aspect of the foot. The posterior part of the foot is red and warm. There is a follow odor present per patient. Patient noted changes of the last 2 weeks. He's been following up with Dr. Nino in the wound care center. He reports he has been on Bactrim in the outpatient setting. Patient was at Dr. Nino office for routine visit and was told to go see Dr. Mosquera and be directly admitted to the hospital for possible amputation of the foot. Patient is also noted some discharge and follow odor from the open area of the ulcer on top of his foot. Patient denies any fever or chills or sweats. Denies any nausea or vomiting. Denies any bowel movement changes or urinary symptoms. Patient underwent right below knee amputation on 02/26/2017 Today he is alert and oriented pain is well controlled denies any chest pain or shortness of breath no abdominal pain no nausea or vomiting Objective - Vital Signs Vital signs: Vital Signs Temp 96.9 F L 02/27/17 14:49 Pulse 84 02/27/17 14:49 Resp 17 02/27/17 14:49 BP 126/58 02/27/17 14:49 Pulse Ox 99 02/27/17 14:49 Intake & Output 02/26/17 02/27/17 02/27/17 18:59 06:59 18:59 Intake Total 656 488 9690 Output Total 200 5 Balance 857 775 1061 Weight 82.5 kg Intake: IV 800 Oral 550 1200 Output: Drainage 0 5 Right Lower 0 5 Estimated Blood Loss 200 Other: Voiding Method Urinal # Voids 0 0 0 # Bowel Movements 0 - Exam In general patient is alert and oriented in no apparent distress HEENT head normocephalic and atraumatic Neck is supple no JVD no goiter no lymphadenopathy Chest exam is clear to auscultation no crackles no wheezing Cardiac exam reveals regular heart sounds S1 and S2 no gallops no murmurs Abdomen is soft nontender no organomegaly with normal bowel sounds Extremity exam reveals bilateral below knee amputation - Labs CBC & Chem 7: 02/27/17 09:09 02/27/17 09:09 Labs: Abnormal Lab Results - Last 24 Hours (Table) 02/26/17 02/26/17 02/27/17 Range/Units 17:12 20:44 07:10 WBC (3.8-10.6) k/uL RBC (4.30-5.90) m/uL Hgb (13.0-17.5) gm/dL Hct (39.0-53.0) % MCHC (31.0-37.0) g/dL Neutrophils # (1.3-7.7) k/uL Lymphocytes # (1.0-4.8) k/uL Sodium (137-145) mmol/L BUN (9-20) mg/dL Creatinine (0.66-1.25) mg/dL Glucose (74-99) mg/dL POC Glucose (mg/dL) 270 H 229 H 139 H (75-99) mg/dL Calcium (8.4-10.2) mg/dL Total Bilirubin (0.2-1.3) mg/dL Total Protein (6.3-8.2) g/dL Albumin (3.5-5.0) g/dL 02/27/17 02/27/17 02/27/17 Range/Units 09:09 09:09 12:22 WBC 13.3 H (3.8-10.6) k/uL RBC 3.88 L (4.30-5.90) m/uL Hgb 10.7 L (13.0-17.5) gm/dL Hct 36.1 L (39.0-53.0) % MCHC 29.6 L (31.0-37.0) g/dL Neutrophils # 11.6 H (1.3-7.7) k/uL Lymphocytes # 0.9 L (1.0-4.8) k/uL Sodium 134 L (137-145) mmol/L BUN 28 H (9-20) mg/dL Creatinine 2.95 H (0.66-1.25) mg/dL Glucose 177 H (74-99) mg/dL POC Glucose (mg/dL) 180 H (75-99) mg/dL Calcium 8.2 L (8.4-10.2) mg/dL Total Bilirubin <0.1 L (0.2-1.3) mg/dL Total Protein 4.3 L (6.3-8.2) g/dL Albumin 2.0 L (3.5-5.0) g/dL Microbiology - Last 24 Hours (Table) 02/23/17 14:50 Anaerobic Culture - Final Foot - Right Anaerobic Gram Positive Cocci 02/23/17 14:50 Gram Stain - Final Foot - Right Wound Culture - Final Acinetobacter peter/haemol Assessment and Plan Plan: 1. Right foot is ulcer with necrotic skin changes: Had been on Bactrim outpatient with no improvement. Consult infectious disease. Wound cultures ordered. Antibiotics per infectious disease. patient had evidence of Right foot gangrene s/p below knee amputation yesterday. 2. Known diabetic ulcer of the right foot with peripheral vascular disease status post angioplasty and stent placement to the right anterior tibial artery by cardiology in January 2017. Patient is also status post amputation of the right second and third toe on 01/09/2017 3. Chronic kidney disease stage V with history of right kidney transplant secondary to his diabetes mellitus. Patient currently on peritoneal dialysis. Consult from nephrology placed 4. Diabetes mellitus type 2. We'll place patient on Humalog sliding scale. Previous hemoglobin A1c was 4.7 5. Chronic atrial fibrillation: Coumadin discontinued on last admission 6. History of peripheral vascular disease secondary to his diabetes mellitus and required a left below the knee amputation 7. Chronic systolic CHF: No evidence of exacerbation. Echo from September 2016 shows an EF of 45-50% 8. Anemia of chronic kidney disease with iron deficiency anemia. 9. History of coronary artery disease with previous coronary artery bypass grafting 10. For pain management pain is not well controlled at this time dose of Dilaudid increased to 1.5 mg IV every 3 hours as needed plan for surgery tomorrow continue current care otherwise
[2017-02-27 17:11] LABS: Glucose,Whole Blood 194 mg/dL (75-99)
[2017-02-27] MEDS: CHOLECALCIFEROL 1,000 UNIT TAB PO SCH (20:53)
[2017-02-27] MEDS: ATORVASTATIN 80 MG TAB PO SCH (20:53)
[2017-02-27 21:13] LABS: Glucose,Whole Blood 143 mg/dL (75-99)
--- NOTE | 2017-02-27 21:34 | P.PN ---
Subjective Principal diagnosis: Gangrene right foot Pleasant 61-year-old male who has a history of diabetes mellitus type 2 with many complications that includes end-stage renal disease. He did have a renal transplantation but that has failed. And now undergoes chronic and which were approaching hemodialysis for the renal failure. 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 The patient relates that he is doing modestly well as of late. He did have foot evaluation some toenail cutting performed. Now 3 weeks later he developed evidence of a blister onto his right foot associated with erythema and swelling to the residual second toe. With his neuropathy is not having pain but is very concerned given the left krzow-ftv-lsjc amputation for limb salvage. Patient denies any known trauma but patient was hospitalized during the summer. At that point in time he was having difficulties with volume overload. This resulted in significant edema which worsen the process to the right foot. He had a significant surgical intervention with amputation of the great and second toe. Despite the surgical intervention is been having nonhealing to the area. He is followed in the wound healing center as well as vascular surgery. He developed increasing discoloration to the lateral aspect of the right foot. Evaluation revealed evidence of severe peripheral vascular disease. The patient did present to the outpatient clinic today and was advised for admission for surgical intervention. There is evidence of bone fragments migrating out of the foot ulceration and worsening of the dry gangrenous changes to the lateral aspect of the foot. The patient also was not feeling well due to the significant infectious process. He is now status post a right doiop-lip-imxv amputation. he was having significant postoperative pain that is now well controlled. He is eating much better today.general comfortable. Objective - Vital Signs Vital signs: Vital Signs Temp 96.9 F L 02/27/17 14:49 Pulse 84 02/27/17 14:49 Resp 17 02/27/17 14:49 BP 126/58 02/27/17 14:49 Pulse Ox 99 02/27/17 14:49 Intake & Output 02/27/17 02/27/17 02/28/17 06:59 18:59 06:59 Intake Total 550 1200 Output Total 5 Balance 550 1195 Weight 82.5 kg Intake: Oral 550 1200 Output: Drainage 5 Right Lower 5 Other: # Voids 0 0 # Bowel Movements 0 - Exam Pleasant 61-year-old male presents to Hospital with significant change to his right foot. HEENT: Anicteric conjunctiva are pink and moist nasal mucosa grossly intact without significant lesions, there is no thrush. Neck: The neck is supple without significant lymphadenopathy or thyromegaly. Lungs: Good bilateral air entry without significant crackles or wheezing. There is no significant bronchial sounds. There is no egophony or dullness. Heart: Irregular with an audible S1 and S2. No S3 soft S4, 2/6 systolic murmur left sternal border is holosystolic. Abdomen: Positive bowel sounds soft and nontender without palpable masses or organomegaly. There was no guarding or rebound. Extremities: The prior shunt to the left arm is only minimal thrill and apparently is not functional for hemodialysis. The left lower extremity below the knee amputation residual limb is in good order. There is no erythema or crepitance or fluctuance. He wears a plastic maker and has no edema or lesions. The right lower extremity shows evidence of the postoperative dressing for the vdkfc-cuz-wfvi amputation, dry and intact. Neuro: Awake alert oriented to person place and time. He has dense severe peripheral neuropathy - Labs CBC & Chem 7: 02/27/17 09:09 02/27/17 09:09 Labs: Abnormal Lab Results - Last 24 Hours (Table) 02/27/17 02/27/17 02/27/17 Range/Units 07:10 09:09 09:09 WBC 13.3 H (3.8-10.6) k/uL RBC 3.88 L (4.30-5.90) m/uL Hgb 10.7 L (13.0-17.5) gm/dL Hct 36.1 L (39.0-53.0) % MCHC 29.6 L (31.0-37.0) g/dL Neutrophils # 11.6 H (1.3-7.7) k/uL Lymphocytes # 0.9 L (1.0-4.8) k/uL Sodium 134 L (137-145) mmol/L BUN 28 H (9-20) mg/dL Creatinine 2.95 H (0.66-1.25) mg/dL Glucose 177 H (74-99) mg/dL POC Glucose (mg/dL) 139 H (75-99) mg/dL Calcium 8.2 L (8.4-10.2) mg/dL Total Bilirubin <0.1 L (0.2-1.3) mg/dL Total Protein 4.3 L (6.3-8.2) g/dL Albumin 2.0 L (3.5-5.0) g/dL 02/27/17 02/27/17 02/27/17 Range/Units 12:22 17:04 21:02 WBC (3.8-10.6) k/uL RBC (4.30-5.90) m/uL Hgb (13.0-17.5) gm/dL Hct (39.0-53.0) % MCHC (31.0-37.0) g/dL Neutrophils # (1.3-7.7) k/uL Lymphocytes # (1.0-4.8) k/uL Sodium (137-145) mmol/L BUN (9-20) mg/dL Creatinine (0.66-1.25) mg/dL Glucose (74-99) mg/dL POC Glucose (mg/dL) 180 H 194 H 143 H (75-99) mg/dL Calcium (8.4-10.2) mg/dL Total Bilirubin (0.2-1.3) mg/dL Total Protein (6.3-8.2) g/dL Albumin (3.5-5.0) g/dL Microbiology - Last 24 Hours (Table) 02/23/17 14:50 Anaerobic Culture - Final Foot - Right Anaerobic Gram Positive Cocci Laboratory Results WBC 13.3 k/uL (3.8-10.6) H 02/27/17 09:09 RBC 3.88 m/uL (4.30-5.90) L 02/27/17 09:09 Hgb 10.7 gm/dL (13.0-17.5) L 02/27/17 09:09 Hct 36.1 % (39.0-53.0) L 02/27/17 09:09 MCV 93.1 fL (80.0-100.0) 02/27/17 09:09 MCH 27.5 pg (25.0-35.0) 02/27/17 09:09 MCHC 29.6 g/dL (31.0-37.0) L 02/27/17 09:09 RDW 14.3 % (11.5-15.5) 02/27/17 09:09 Plt Count 312 k/uL (150-450) 02/27/17 09:09 Neutrophils % 87 % 02/27/17 09:09 Lymphocytes % 7 % 02/27/17 09:09 Monocytes % 5 % 02/27/17 09:09 Eosinophils % 0 % 02/27/17 09:09 Basophils % 0 % 02/27/17 09:09 Neutrophils # 11.6 k/uL (1.3-7.7) H 02/27/17 09:09 Lymphocytes # 0.9 k/uL (1.0-4.8) L 02/27/17 09:09 Monocytes # 0.6 k/uL (0-1.0) 02/27/17 09:09 Eosinophils # 0.0 k/uL (0-0.7) 02/27/17 09:09 Basophils # 0.0 k/uL (0-0.2) 02/27/17 09:09 Hypochromasia Marked 02/27/17 09:09 Sodium 134 mmol/L (137-145) L 02/27/17 09:09 Potassium 4.2 mmol/L (3.5-5.1) 02/27/17 09:09 Chloride 101 mmol/L (98-107) 02/27/17 09:09 Carbon Dioxide 24 mmol/L (22-30) 02/27/17 09:09 Anion Gap 9 mmol/L 02/27/17 09:09 BUN 28 mg/dL (9-20) H 02/27/17 09:09 Creatinine 2.95 mg/dL (0.66-1.25) H 02/27/17 09:09 Est GFR (MDRD) Af Amer 26 (>60 ml/min/1.73 sqM) 02/27/17 09:09 Est GFR (MDRD) Non-Af 22 (>60 ml/min/1.73 sqM) 02/27/17 09:09 Glucose 177 mg/dL (74-99) H 02/27/17 09:09 POC Glucose (mg/dL) 143 mg/dL (75-99) H 02/27/17 21:02 POC Glu [employer] Manager ID Migdalia Waterman 02/27/17 21:02 Calcium 8.2 mg/dL (8.4-10.2) L 02/27/17 09:09 Phosphorus 3.3 mg/dL (2.5-4.5) 02/24/17 08:27 Total Bilirubin <0.1 mg/dL (0.2-1.3) L 02/27/17 09:09 AST 22 U/L (17-59) 02/27/17 09:09 ALT 29 U/L (21-72) 02/27/17 09:09 Alkaline Phosphatase 68 U/L (38-126) 02/27/17 09:09 Total Protein 4.3 g/dL (6.3-8.2) L 02/27/17 09:09 Albumin 2.0 g/dL (3.5-5.0) L 02/27/17 09:09 Random Vancomycin 15.1 ug/mL 02/26/17 04:05 Blood Type A Positive 02/26/17 04:05 Blood Type Recheck No 02/26/17 04:05 Antibody Screen NEGATIVE 02/26/17 04:05 Spec Expiration Date 03/01/2017 - 6378 02/26/17 04:05 Microbiology 02/23/17 14:50 Foot - Right Anaerobic Culture - Final Anaerobic Gram Positive Cocci 02/23/17 14:50 Foot - Right Gram Stain - Final 02/23/17 14:50 Foot - Right Wound Culture - Final Acinetobacter peter/haemol Assessment and Plan (1) Diabetic ulcer of right foot associated with diabetes mellitus due to underlying condition, with necrosis of bone Status: Acute (2) Gangrene of right foot Narrative/Plan: 61-year-old male presents to the office today with evidence of the marked worsening to the diabetic foot ulceration of his right foot. There is evidence of worsening gangrenous changes. Necrotic bone was exposed and easily peeled out of the base of the ulceration. There is also worsened with dry gangrenous changes to the lateral aspect of the foot. The case is discussed with the vascular surgeon. The patient's primary care physician was contacted and ranges were made for admission. The patient has been admitted. He will be seen by cardiology and then proceed to a below-knee amputation in the near future. He has had extensive vascular evaluations performed recently. He's also had some procedures the failed to allow significant improvement of the foot. The patient at this time relates he looks forward to amputation to improve his quality of life. Hopefully they gets up on the 2 prosthesis he will do relatively well. As noted he had a gastric bypass procedure he's lost more than 200 pounds and this has allowed him to be quite mobile with his left leg prosthesis. He is highly motivated and hopefully will be able to ambulate with 2 prosthesis. Antibiotic therapy at this point in time as directed for the most recent culture with vancomycin and ceftazidime mike bossnobacter are being utilized for now. Leukocytosis due to the gangrenous changes. The right auajc-jti-hqhv amputation has occurred. We'll plan to continue his antibiotic therapy for the next several days. Status: Acute (3) Leukocytosis Status: Acute (4) End-stage renal disease on peritoneal dialysis Status: Acute
[2017-02-27] MEDS: ASPIRIN 81 MG PO SCH (22:08)
[2017-02-27] MEDS: DIALYSIS (PERIT 1.5%) 2,000 ML 30 G/2,000 ML BAG INTRAPERIT SCH (23:36)
[2017-02-28] MEDS: HYDROmorphone 2 MG/ML 1 ML SYRINGE IVP PRN ×3 (04:01→21:41)
[2017-02-28] MEDS: DIALYSIS (PERIT 2.5%) 2,000 ML 50 G/2,000 ML BAG INTRAPERIT SCH ×3 (06:48→17:58)
[2017-02-28] MEDS: HYDROcodone/APAP 5-325MG 1 EACH TAB PO PRN ×3 (07:07→18:11)
[2017-02-28 07:31] LABS: Glucose,Whole Blood 154 mg/dL (75-99)
[2017-02-28] MEDS: HEPARIN SODIUM,PORCINE 5,000 UNIT/ML 1 ML VIAL SQ SCH ×2 (07:36→20:17)
[2017-02-28] MEDS: CLOPIDOGREL 75 MG TAB PO SCH (07:36)
[2017-02-28] MEDS: MIDODRINE 5 MG TAB PO SCH (07:37)
[2017-02-28] MEDS: FUROSEMIDE 20 MG TAB PO SCH ×2 (07:37→17:58)
[2017-02-28] MEDS: PANTOPRAZOLE 40 MG TABLET PO SCH (07:37)
[2017-02-28] MEDS: MYCOPHENOLATE SODIUM DR 180 MG TABLET.DR PO SCH (07:38)
[2017-02-28] MEDS: SODIUM BICARBONATE TAB 650 MG TAB PO SCH ×2 (07:38→20:17)
[2017-02-28] MEDS: TACROLIMUS 1 MG CAP PO SCH ×2 (07:38→20:16)
[2017-02-28] MEDS: INSULIN LISPRO (humaLOG) 300 UNIT/3 ML VIAL SQ SCH ×4 (07:42→21:42)
[2017-02-28] MEDS: FOLIC ACID-VIT B COMPLEX-VIT C 1 CAP PO SCH (11:59)
[2017-02-28] MEDS: MAGNESIUM OXIDE 400 MG TAB PO SCH (11:59)
[2017-02-28] MEDS: CALCITRIOL 0.25 MCG CAP PO SCH (11:59)
[2017-02-28] MEDS: VIT A,C & E-LUTEIN-MINERALS 1 EACH TAB PO SCH (11:59)
[2017-02-28 12:34] LABS: Glucose,Whole Blood 140 mg/dL (75-99)
--- NOTE | 2017-02-28 14:17 | P.PN ---
Subjective This is a 61-year-old male with a known history of chronic renal failure with right kidney transplant on peritoneal dialysis. Also has a history of coronary artery disease with previous coronary artery bypass grafting, atrial fibrillation, DVT of the lower extremity with a Melissa filter placed, hypertension and hyperlipidemia. diabetes mellitus type 2, peripheral vascular disease, left BKA, previous hospital admission in January with necrosis of the right second and third toe requiring amputation of those toes on 01/09/2017. Patient also had angioplasty and stent placement to the right anterior tibial artery by cardiology during that admission. Since that admission in January he has had issues with that right foot. He has necrotic tissue on the pad of the foot. There is also some necrotic changes along the lateral aspect of the foot. The posterior part of the foot is red and warm. There is a follow odor present per patient. Patient noted changes of the last 2 weeks. He's been following up with Dr. Nino in the wound care center. He reports he has been on Bactrim in the outpatient setting. Patient was at Dr. Nino office for routine visit and was told to go see Dr. Mosquera and be directly admitted to the hospital for possible amputation of the foot. Patient is also noted some discharge and follow odor from the open area of the ulcer on top of his foot. Patient denies any fever or chills or sweats. Denies any nausea or vomiting. Denies any bowel movement changes or urinary symptoms. Patient underwent right below knee amputation on 02/26/2017 Today he is alert and oriented pain is well controlled denies any chest pain or shortness of breath no abdominal pain no nausea or vomiting Objective - Vital Signs Vital signs: Vital Signs Temp 978.8 F H 02/28/17 12:00 Pulse 77 02/28/17 12:00 Resp 18 02/28/17 12:00 BP 117/50 02/28/17 12:00 Pulse Ox 98 02/28/17 12:00 Intake & Output 02/27/17 02/28/17 02/28/17 18:59 06:59 18:59 Intake Total 1200 1200 120 Output Total 5 Balance 1195 1200 120 Weight 83.5 kg 83.5 kg Intake: Oral 1200 1200 120 Output: Drainage 5 Right Lower 5 Other: Voiding Method Urinal # Voids 0 0 # Bowel Movements 0 - Exam In general patient is alert and oriented in no apparent distress HEENT head normocephalic and atraumatic Neck is supple no JVD no goiter no lymphadenopathy Chest exam is clear to auscultation no crackles no wheezing Cardiac exam reveals regular heart sounds S1 and S2 no gallops no murmurs Abdomen is soft nontender no organomegaly with normal bowel sounds Extremity exam reveals bilateral below knee amputation - Labs CBC & Chem 7: 02/27/17 09:09 02/27/17 09:09 Labs: Abnormal Lab Results - Last 24 Hours (Table) 02/27/17 02/27/17 02/28/17 Range/Units 17:04 21:02 07:25 POC Glucose (mg/dL) 194 H 143 H 154 H (75-99) mg/dL Iron (49-181) ug/dL 02/28/17 02/28/17 Range/Units 08:40 12:27 POC Glucose (mg/dL) 140 H (75-99) mg/dL Iron 18 L (49-181) ug/dL Microbiology - Last 24 Hours (Table) 02/23/17 14:50 Anaerobic Culture - Final Foot - Right Anaerobic Gram Positive Cocci Assessment and Plan Plan: 1. Right foot is ulcer with necrotic skin changes: Had been on Bactrim outpatient with no improvement. Consult infectious disease. Wound cultures ordered. Antibiotics per infectious disease. patient had evidence of Right foot gangrene s/p below knee amputation on 02/26/2017. 2. Known diabetic ulcer of the right foot with peripheral vascular disease status post angioplasty and stent placement to the right anterior tibial artery by cardiology in January 2017. Patient is also status post amputation of the right second and third toe on 01/09/2017 3. Chronic kidney disease stage V with history of right kidney transplant secondary to his diabetes mellitus. Patient currently on peritoneal dialysis. Consult from nephrology placed 4. Diabetes mellitus type 2. We'll place patient on Humalog sliding scale. Previous hemoglobin A1c was 4.7 5. Chronic atrial fibrillation: Coumadin discontinued on last admission 6. History of peripheral vascular disease secondary to his diabetes mellitus and required a left below the knee amputation 7. Chronic systolic CHF: No evidence of exacerbation. Echo from September 2016 shows an EF of 45-50% 8. Anemia of chronic kidney disease with iron deficiency anemia. 9. History of coronary artery disease with previous coronary artery bypass grafting 10. For pain management pain is not well controlled at this time dose of Dilaudid increased to 1.5 mg IV every 3 hours as needed plan for surgery tomorrow continue current care otherwise
--- NOTE | 2017-02-28 16:43 | P.PN ---
Subjective Principal diagnosis: Gangrene right foot Pleasant 61-year-old male who has a history of diabetes mellitus type 2 with many complications that includes end-stage renal disease. He did have a renal transplantation but that has failed. And now undergoes chronic and which were approaching hemodialysis for the renal failure. 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 The patient relates that he is doing modestly well as of late. He did have foot evaluation some toenail cutting performed. Now 3 weeks later he developed evidence of a blister onto his right foot associated with erythema and swelling to the residual second toe. With his neuropathy is not having pain but is very concerned given the left iezxy-xlz-nmbs amputation for limb salvage. Patient denies any known trauma but patient was hospitalized during the summer. At that point in time he was having difficulties with volume overload. This resulted in significant edema which worsen the process to the right foot. He had a significant surgical intervention with amputation of the great and second toe. Despite the surgical intervention is been having nonhealing to the area. He is followed in the wound healing center as well as vascular surgery. He developed increasing discoloration to the lateral aspect of the right foot. Evaluation revealed evidence of severe peripheral vascular disease. The patient did present to the outpatient clinic today and was advised for admission for surgical intervention. There is evidence of bone fragments migrating out of the foot ulceration and worsening of the dry gangrenous changes to the lateral aspect of the foot. The patient also was not feeling well due to the significant infectious process. He is now status post a right cogbr-aiu-hatc amputation. he was having significant postoperative pain that is now well controlled. He is eating much better today.general comfortable. Objective - Vital Signs Vital signs: Vital Signs Temp 97.2 F L 02/28/17 15:00 Pulse 76 02/28/17 15:00 Resp 20 02/28/17 15:00 BP 97/53 02/28/17 15:00 Pulse Ox 97 02/28/17 15:00 Intake & Output 02/27/17 02/28/17 02/28/17 18:59 06:59 18:59 Intake Total 1200 1200 120 Output Total 5 Balance 1195 1200 120 Weight 83.5 kg 83.5 kg Intake: Oral 1200 1200 120 Output: Drainage 5 Right Lower 5 Other: Voiding Method Urinal # Voids 0 0 # Bowel Movements 0 0 - Exam Pleasant 61-year-old male presents to Hospital with significant change to his right foot. HEENT: Anicteric conjunctiva are pink and moist nasal mucosa grossly intact without significant lesions, there is no thrush. Neck: The neck is supple without significant lymphadenopathy or thyromegaly. Lungs: Good bilateral air entry without significant crackles or wheezing. There is no significant bronchial sounds. There is no egophony or dullness. Heart: Irregular with an audible S1 and S2. No S3 soft S4, 2/6 systolic murmur left sternal border is holosystolic. Abdomen: Positive bowel sounds soft and nontender without palpable masses or organomegaly. There was no guarding or rebound. Extremities: The prior shunt to the left arm is only minimal thrill and apparently is not functional for hemodialysis. The left lower extremity below the knee amputation residual limb is in good order. There is no erythema or crepitance or fluctuance. He wears a silver holloware assembler and has no edema or lesions. The right lower extremity shows evidence of the postoperative dressing for the yyvkl-yfp-zqxs amputation, dry and intact. Neuro: Awake alert oriented to person place and time. He has dense severe peripheral neuropathy - Labs CBC & Chem 7: 02/27/17 09:09 02/27/17 09:09 Labs: Abnormal Lab Results - Last 24 Hours (Table) 02/27/17 02/27/17 02/28/17 Range/Units 17:04 21:02 07:25 POC Glucose (mg/dL) 194 H 143 H 154 H (75-99) mg/dL Iron (49-181) ug/dL 02/28/17 02/28/17 Range/Units 08:40 12:27 POC Glucose (mg/dL) 140 H (75-99) mg/dL Iron 18 L (49-181) ug/dL Microbiology - Last 24 Hours (Table) 02/23/17 14:50 Anaerobic Culture - Final Foot - Right Anaerobic Gram Positive Cocci Laboratory Results WBC 13.3 k/uL (3.8-10.6) H 02/27/17 09:09 RBC 3.88 m/uL (4.30-5.90) L 02/27/17 09:09 Hgb 10.7 gm/dL (13.0-17.5) L 02/27/17 09:09 Hct 36.1 % (39.0-53.0) L 02/27/17 09:09 MCV 93.1 fL (80.0-100.0) 02/27/17 09:09 MCH 27.5 pg (25.0-35.0) 02/27/17 09:09 MCHC 29.6 g/dL (31.0-37.0) L 02/27/17 09:09 RDW 14.3 % (11.5-15.5) 02/27/17 09:09 Plt Count 312 k/uL (150-450) 02/27/17 09:09 Neutrophils % 87 % 02/27/17 09:09 Lymphocytes % 7 % 02/27/17 09:09 Monocytes % 5 % 02/27/17 09:09 Eosinophils % 0 % 02/27/17 09:09 Basophils % 0 % 02/27/17 09:09 Neutrophils # 11.6 k/uL (1.3-7.7) H 02/27/17 09:09 Lymphocytes # 0.9 k/uL (1.0-4.8) L 02/27/17 09:09 Monocytes # 0.6 k/uL (0-1.0) 02/27/17 09:09 Eosinophils # 0.0 k/uL (0-0.7) 02/27/17 09:09 Basophils # 0.0 k/uL (0-0.2) 02/27/17 09:09 Hypochromasia Marked 02/27/17 09:09 Sodium 134 mmol/L (137-145) L 02/27/17 09:09 Potassium 4.2 mmol/L (3.5-5.1) 02/27/17 09:09 Chloride 101 mmol/L (98-107) 02/27/17 09:09 Carbon Dioxide 24 mmol/L (22-30) 02/27/17 09:09 Anion Gap 9 mmol/L 02/27/17 09:09 BUN 28 mg/dL (9-20) H 02/27/17 09:09 Creatinine 2.95 mg/dL (0.66-1.25) H 02/27/17 09:09 Est GFR (MDRD) Af Amer 26 (>60 ml/min/1.73 sqM) 02/27/17 09:09 Est GFR (MDRD) Non-Af 22 (>60 ml/min/1.73 sqM) 02/27/17 09:09 Glucose 177 mg/dL (74-99) H 02/27/17 09:09 POC Glucose (mg/dL) 140 mg/dL (75-99) H 02/28/17 12:27 POC Glu Window Sash Installer Paty Weeks 02/28/17 12:27 Calcium 8.2 mg/dL (8.4-10.2) L 02/27/17 09:09 Phosphorus 3.3 mg/dL (2.5-4.5) 02/24/17 08:27 Iron 18 ug/dL (49-181) L 02/28/17 08:40 Total Bilirubin <0.1 mg/dL (0.2-1.3) L 02/27/17 09:09 AST 22 U/L (17-59) 02/27/17 09:09 ALT 29 U/L (21-72) 02/27/17 09:09 Alkaline Phosphatase 68 U/L (38-126) 02/27/17 09:09 Total Protein 4.3 g/dL (6.3-8.2) L 02/27/17 09:09 Albumin 2.0 g/dL (3.5-5.0) L 02/27/17 09:09 Random Vancomycin 16.3 ug/mL 02/28/17 08:40 Blood Type A Positive 02/26/17 04:05 Blood Type Recheck No 02/26/17 04:05 Antibody Screen NEGATIVE 02/26/17 04:05 Spec Expiration Date 03/01/2017230402/26/17 04:05 Assessment and Plan (1) Diabetic ulcer of right foot associated with diabetes mellitus due to underlying condition, with necrosis of bone Status: Acute (2) Gangrene of right foot Narrative/Plan: 61-year-old male presents to the office today with evidence of the marked worsening to the diabetic foot ulceration of his right foot. There is evidence of worsening gangrenous changes. Necrotic bone was exposed and easily peeled out of the base of the ulceration. There is also worsened with dry gangrenous changes to the lateral aspect of the foot. The case is discussed with the vascular surgeon. The patient's primary care physician was contacted and ranges were made for admission. The patient has been admitted. He will be seen by cardiology and then proceed to a below-knee amputation in the near future. He has had extensive vascular evaluations performed recently. He's also had some procedures the failed to allow significant improvement of the foot. The patient at this time relates he looks forward to amputation to improve his quality of life. Hopefully they gets up on the 2 prosthesis he will do relatively well. As noted he had a gastric bypass procedure he's lost more than 200 pounds and this has allowed him to be quite mobile with his left leg prosthesis. He is highly motivated and hopefully will be able to ambulate with 2 prosthesis. Antibiotic therapy at this point in time as directed for the most recent culture with vancomycin and ceftazidime mike bossnobacter are being utilized for now. Leukocytosis due to the significant gangrenous changes and recent amputation. Showing some improvement. The right fgpyp-vlw-mjxz amputation has occurred. We'll plan to continue his antibiotic therapy for the next several days. Status: Acute (3) Leukocytosis Status: Acute (4) End-stage renal disease on peritoneal dialysis Status: Acute
[2017-02-28 17:11] LABS: Iron Saturation 13.24 (15.00-50.00)
[2017-02-28 17:27] LABS: Glucose,Whole Blood 111 mg/dL (75-99)
[2017-02-28] MEDS ORDERED: VANCOMYCIN 1,500 MG in SODIUM CHLORIDE 0.9% 250 ML IVPB ONE (18:00)
[2017-02-28] MEDS: ATORVASTATIN 80 MG TAB PO SCH (20:16)
[2017-02-28] MEDS: CHOLECALCIFEROL 1,000 UNIT TAB PO SCH (20:16)
[2017-02-28] MEDS: ASPIRIN 81 MG PO SCH (20:17)
[2017-02-28 20:58] LABS: Glucose,Whole Blood 257 mg/dL (75-99)
[2017-02-28] MEDS: SODIUM CHLORIDE 0.9% 1,000 ML IV SCH (21:44)
[2017-02-28] MEDS: DIALYSIS (PERIT 1.5%) 2,000 ML 30 G/2,000 ML BAG INTRAPERIT SCH (23:10)
[2017-02-28] MEDS: TEMAZEPAM 15 MG CAP PO PRN (23:56)
[2017-03-01] MEDS: DIALYSIS (PERIT 2.5%) 2,000 ML 50 G/2,000 ML BAG INTRAPERIT SCH ×3 (05:02→18:18)
[2017-03-01 07:42] LABS: Glucose,Whole Blood 133 mg/dL (75-99)
[2017-03-01] MEDS: INSULIN LISPRO (humaLOG) 300 UNIT/3 ML VIAL SQ SCH ×4 (08:17→21:19)
[2017-03-01] MEDS: CLOPIDOGREL 75 MG TAB PO SCH (08:17)
[2017-03-01] MEDS: FUROSEMIDE 20 MG TAB PO SCH ×2 (08:17→15:26)
[2017-03-01] MEDS: PANTOPRAZOLE 40 MG TABLET PO SCH (08:17)
[2017-03-01] MEDS: SODIUM BICARBONATE TAB 650 MG TAB PO SCH ×2 (08:18→20:50)
[2017-03-01] MEDS: HEPARIN SODIUM,PORCINE 5,000 UNIT/ML 1 ML VIAL SQ SCH ×2 (08:18→20:50)
[2017-03-01] MEDS: MIDODRINE 5 MG TAB PO SCH (08:18)
[2017-03-01] MEDS: MYCOPHENOLATE SODIUM DR 180 MG TABLET.DR PO SCH (08:18)
[2017-03-01] MEDS: TACROLIMUS 1 MG CAP PO SCH (08:18)
[2017-03-01] MEDS: HYDROmorphone 2 MG/ML 1 ML SYRINGE IVP PRN ×2 (08:40→17:43)
[2017-03-01 09:15] LABS: Basophils % (A) 0 %; CH 27.1; CHCM 29.6; Eosinophils % (A) 0 %; HCT 32.8 % (39.0-53.0); HDW 2.76; HGB 9.7 gm/dL (13.0-17.5); Hypochromasia Marked; Luc # (Auto) 0.14; Luc % (Auto) 2; Lymphocytes # (A) 0.6 k/uL (1.0-4.8); Lymphocytes % (A) 8 %; MCH 27.4 pg (25.0-35.0); MCHC 29.7 g/dL (31.0-37.0); MCV 92.1 fL (80.0-100.0); Mean Platelet Volume 7.6; Monocytes # (A) 0.5 k/uL (0-1.0); Monocytes % (A) 7 %; Neutrophils # (A) 6.2 k/uL (1.3-7.7); Neutrophils % (A) 83 %; RBC 3.56 m/uL (4.30-5.90); RDW 14.5 % (11.5-15.5); WBC 7.5 k/uL (3.8-10.6); WBC (Perox) 8.51
[2017-03-01 09:34] LABS: Calcium 8.2 mg/dL (8.4-10.2); Potassium 4.1 mmol/L (3.5-5.1); Total Bilirubin 0.2 mg/dL (0.2-1.3); Total Protein 4.4 g/dL (6.3-8.2)
[2017-03-01] MEDS: HYDROcodone/APAP 5-325MG 1 EACH TAB PO PRN (10:59)
[2017-03-01] MEDS: CALCITRIOL 0.25 MCG CAP PO SCH (11:43)
[2017-03-01] MEDS: DOCUSATE 100 MG CAP PO SCH (11:43)
[2017-03-01] MEDS: VIT A,C & E-LUTEIN-MINERALS 1 EACH TAB PO SCH (11:44)
[2017-03-01] MEDS: MAGNESIUM OXIDE 400 MG TAB PO SCH (11:44)
[2017-03-01] MEDS: FOLIC ACID-VIT B COMPLEX-VIT C 1 CAP PO SCH (11:44)
[2017-03-01 12:27] LABS: Glucose,Whole Blood 118 mg/dL (75-99)
--- NOTE | 2017-03-01 13:42 | P.PN ---
Subjective Principal diagnosis: Gangrene right foot Pleasant 61-year-old male who has a history of diabetes mellitus type 2 with many complications that includes end-stage renal disease. He did have a renal transplantation but that has failed. And now undergoes chronic and which were approaching hemodialysis for the renal failure. 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 The patient relates that he is doing modestly well as of late. He did have foot evaluation some toenail cutting performed. Now 3 weeks later he developed evidence of a blister onto his right foot associated with erythema and swelling to the residual second toe. With his neuropathy is not having pain but is very concerned given the left sddkj-axi-wtlc amputation for limb salvage. Patient denies any known trauma but patient was hospitalized during the summer. At that point in time he was having difficulties with volume overload. This resulted in significant edema which worsen the process to the right foot. He had a significant surgical intervention with amputation of the great and second toe. Despite the surgical intervention is been having nonhealing to the area. He is followed in the wound healing center as well as vascular surgery. He developed increasing discoloration to the lateral aspect of the right foot. Evaluation revealed evidence of severe peripheral vascular disease. The patient did present to the outpatient clinic today and was advised for admission for surgical intervention. There is evidence of bone fragments migrating out of the foot ulceration and worsening of the dry gangrenous changes to the lateral aspect of the foot. The patient also was not feeling well due to the significant infectious process. He is now status post a right yxqxq-sqy-gxsh amputation. he was having significant postoperative pain that is now well controlled. He is eating well but is complaining of significant nerve type pain to the right lower extremity with certain motions. Objective - Vital Signs Vital signs: Vital Signs Temp 97.6 F 03/01/17 12:20 Pulse 78 03/01/17 12:20 Resp 18 03/01/17 12:20 BP 121/58 03/01/17 12:20 Pulse Ox 97 03/01/17 12:20 Intake & Output 02/28/17 03/01/17 03/01/17 18:59 06:59 18:59 Intake Total 360 370 Output Total 100 Balance 360 270 Weight 83.5 kg 78.5 kg Intake: Intake, IV Titration 370 Amount Sodium Chloride 0.9% 1, 120 000 ml @ 20 mls/hr IV . Q24H [facility] Rx#:[id number] Vancomycin 1,500 mg In 250 Sodium Chloride 0.9% 250 ml @ 125 mls/hr IVPB ONCE ONE Rx#:[id number] Oral 360 Output: Urine 100 Other: Voiding Method Urinal # Bowel Movements 0 - Exam Pleasant 61-year-old male presents to Hospital with significant change to his right foot. HEENT: Anicteric conjunctiva are pink and moist nasal mucosa grossly intact without significant lesions, there is no thrush. Neck: The neck is supple without significant lymphadenopathy or thyromegaly. Lungs: Good bilateral air entry without significant crackles or wheezing. There is no significant bronchial sounds. There is no egophony or dullness. Heart: Irregular with an audible S1 and S2. No S3 soft S4, 2/6 systolic murmur left sternal border is holosystolic. Abdomen: Positive bowel sounds soft and nontender without palpable masses or organomegaly. There was no guarding or rebound. Extremities: The prior shunt to the left arm is only minimal thrill and apparently is not functional for hemodialysis. The left lower extremity below the knee amputation residual limb is in good order. There is no erythema or crepitance or fluctuance. He wears a biochemistry technician and has no edema or lesions. The right lower extremity shows evidence of the postoperative dressing for the vwtji-nax-yfzi amputation, dry and intact. Neuro: Awake alert oriented to person place and time. He has dense severe peripheral neuropathy - Labs CBC & Chem 7: 03/01/17 08:09 03/01/17 08:09 Labs: Abnormal Lab Results - Last 24 Hours (Table) 02/28/17 02/28/17 03/01/17 Range/Units 17:03 20:56 07:22 RBC (4.30-5.90) m/uL Hgb (13.0-17.5) gm/dL Hct (39.0-53.0) % MCHC (31.0-37.0) g/dL Lymphocytes # (1.0-4.8) k/uL Sodium (137-145) mmol/L BUN (9-20) mg/dL Creatinine (0.66-1.25) mg/dL Glucose (74-99) mg/dL POC Glucose (mg/dL) 111 H 257 H 133 H (75-99) mg/dL Calcium (8.4-10.2) mg/dL Total Protein (6.3-8.2) g/dL Albumin (3.5-5.0) g/dL 03/01/17 03/01/17 03/01/17 Range/Units 08:09 08:09 12:23 RBC 3.56 L (4.30-5.90) m/uL Hgb 9.7 L (13.0-17.5) gm/dL Hct 32.8 L (39.0-53.0) % MCHC 29.7 L (31.0-37.0) g/dL Lymphocytes # 0.6 L (1.0-4.8) k/uL Sodium 134 L (137-145) mmol/L BUN 29 H (9-20) mg/dL Creatinine 3.15 H (0.66-1.25) mg/dL Glucose 159 H (74-99) mg/dL POC Glucose (mg/dL) 118 H (75-99) mg/dL Calcium 8.2 L (8.4-10.2) mg/dL Total Protein 4.4 L (6.3-8.2) g/dL Albumin 2.0 L (3.5-5.0) g/dL Laboratory Results WBC 7.5 k/uL (3.8-10.6) 03/01/17 08:09 RBC 3.56 m/uL (4.30-5.90) L 03/01/17 08:09 Hgb 9.7 gm/dL (13.0-17.5) L 03/01/17 08:09 Hct 32.8 % (39.0-53.0) L 03/01/17 08:09 MCV 92.1 fL (80.0-100.0) 03/01/17 08:09 MCH 27.4 pg (25.0-35.0) 03/01/17 08:09 MCHC 29.7 g/dL (31.0-37.0) L 03/01/17 08:09 RDW 14.5 % (11.5-15.5) 03/01/17 08:09 Plt Count 286 k/uL (150-450) 03/01/17 08:09 Neutrophils % 83 % 03/01/17 08:09 Lymphocytes % 8 % 03/01/17 08:09 Monocytes % 7 % 03/01/17 08:09 Eosinophils % 0 % 03/01/17 08:09 Basophils % 0 % 03/01/17 08:09 Neutrophils # 6.2 k/uL (1.3-7.7) 03/01/17 08:09 Lymphocytes # 0.6 k/uL (1.0-4.8) L 03/01/17 08:09 Monocytes # 0.5 k/uL (0-1.0) 03/01/17 08:09 Eosinophils # 0.0 k/uL (0-0.7) 03/01/17 08:09 Basophils # 0.0 k/uL (0-0.2) 03/01/17 08:09 Hypochromasia Marked 03/01/17 08:09 Sodium 134 mmol/L (137-145) L 03/01/17 08:09 Potassium 4.1 mmol/L (3.5-5.1) 03/01/17 08:09 Chloride 99 mmol/L (98-107) 03/01/17 08:09 Carbon Dioxide 27 mmol/L (22-30) 03/01/17 08:09 Anion Gap 8 mmol/L 03/01/17 08:09 BUN 29 mg/dL (9-20) H 03/01/17 08:09 Creatinine 3.15 mg/dL (0.66-1.25) H 03/01/17 08:09 Est GFR (MDRD) Af Amer 24 (>60 ml/min/1.73 sqM) 03/01/17 08:09 Est GFR (MDRD) Non-Af 20 (>60 ml/min/1.73 sqM) 03/01/17 08:09 Glucose 159 mg/dL (74-99) H 03/01/17 08:09 POC Glucose (mg/dL) 118 mg/dL (75-99) H 03/01/17 12:23 POC Glu Sorting Machine Operator ID Paty Rivera 03/01/17 12:23 Calcium 8.2 mg/dL (8.4-10.2) L 03/01/17 08:09 Phosphorus 3.3 mg/dL (2.5-4.5) 02/24/17 08:27 Iron 18 ug/dL (49-181) L 02/28/17 08:40 Total Bilirubin 0.2 mg/dL (0.2-1.3) 03/01/17 08:09 AST 30 U/L (17-59) 03/01/17 08:09 ALT 28 U/L (21-72) 03/01/17 08:09 Alkaline Phosphatase 81 U/L (38-126) 03/01/17 08:09 Total Protein 4.4 g/dL (6.3-8.2) L 03/01/17 08:09 Albumin 2.0 g/dL (3.5-5.0) L 03/01/17 08:09 Random Vancomycin 16.3 ug/mL 02/28/17 08:40 Blood Type A Positive 02/26/17 04:05 Blood Type Recheck No 02/26/17 04:05 Antibody Screen NEGATIVE 02/26/17 04:05 Spec Expiration Date 03/01/2017 - 9735 02/26/17 04:05 Microbiology 02/23/17 14:50 Foot - Right Anaerobic Culture - Final Anaerobic Gram Positive Cocci 02/23/17 14:50 Foot - Right Gram Stain - Final 02/23/17 14:50 Foot - Right Wound Culture - Final Acinetobacter peter/haemol Assessment and Plan (1) Diabetic ulcer of right foot associated with diabetes mellitus due to underlying condition, with necrosis of bone Status: Acute (2) Gangrene of right foot Narrative/Plan: 61-year-old male presents to the office today with evidence of the marked worsening to the diabetic foot ulceration of his right foot. There is evidence of worsening gangrenous changes. Necrotic bone was exposed and easily peeled out of the base of the ulceration. There is also worsened with dry gangrenous changes to the lateral aspect of the foot. The case is discussed with the vascular surgeon. The patient's primary care physician was contacted and ranges were made for admission. The patient has been admitted. He will be seen by cardiology and then proceed to a below-knee amputation in the near future. He has had extensive vascular evaluations performed recently. He's also had some procedures the failed to allow significant improvement of the foot. The patient at this time relates he looks forward to amputation to improve his quality of life. Hopefully they gets up on the 2 prosthesis he will do relatively well. As noted he had a gastric bypass procedure he's lost more than 200 pounds and this has allowed him to be quite mobile with his left leg prosthesis. He is highly motivated and hopefully will be able to ambulate with 2 prosthesis. Antibiotic therapy at this point in time as directed for the most recent culture with vancomycin and ceftazidime for aceitnobacter are being utilized for now. With the amputation will not require outpatient intravenous antibiotic therapy. Leukocytosis due to the significant gangrenous changes and recent amputation. Showing some improvement. The right kktqh-mqi-qybr amputation has occurred. We'll plan to continue his antibiotic therapy for the next several days. Status: Acute (3) Leukocytosis Status: Acute (4) End-stage renal disease on peritoneal dialysis Status: Acute
--- NOTE | 2017-03-01 15:18 | P.PN ---
Subjective This is a 61-year-old male with a known history of chronic renal failure with right kidney transplant on peritoneal dialysis. Also has a history of coronary artery disease with previous coronary artery bypass grafting, atrial fibrillation, DVT of the lower extremity with a Melissa filter placed, hypertension and hyperlipidemia. diabetes mellitus type 2, peripheral vascular disease, left BKA, previous hospital admission in January with necrosis of the right second and third toe requiring amputation of those toes on 01/09/2017. Patient also had angioplasty and stent placement to the right anterior tibial artery by cardiology during that admission. Since that admission in January he has had issues with that right foot. He has necrotic tissue on the pad of the foot. There is also some necrotic changes along the lateral aspect of the foot. The posterior part of the foot is red and warm. There is a follow odor present per patient. Patient noted changes of the last 2 weeks. He's been following up with Dr. Nino in the wound care center. He reports he has been on Bactrim in the outpatient setting. Patient was at Dr. Nino office for routine visit and was told to go see Dr. Mosquera and be directly admitted to the hospital for possible amputation of the foot. Patient is also noted some discharge and follow odor from the open area of the ulcer on top of his foot. Patient denies any fever or chills or sweats. Denies any nausea or vomiting. Denies any bowel movement changes or urinary symptoms. Patient underwent right below knee amputation on 02/26/2017 Today he is alert and oriented pain is well controlled denies any chest pain or shortness of breath no abdominal pain no nausea or vomiting Patient was seen and examined on 03/01/2017 is alert and oriented 3 still complaining of pain at the amputation site also complaining of constipation otherwise no complaints. There is no chest pain or shortness of breath no nausea or vomiting no abdominal pain and no urinary symptoms Objective - Vital Signs Vital signs: Vital Signs Temp 97.6 F 03/01/17 12:20 Pulse 78 03/01/17 12:20 Resp 18 03/01/17 12:20 BP 121/58 03/01/17 12:20 Pulse Ox 97 03/01/17 12:20 Intake & Output 02/28/17 03/01/17 03/01/17 18:59 06:59 18:59 Intake Total 360 370 Output Total 100 Balance 360 270 Weight 83.5 kg 78.5 kg Intake: Intake, IV Titration 370 Amount Sodium Chloride 0.9% 1, 120 000 ml @ 20 mls/hr IV . Q24H [facility] Rx#:[id number] Vancomycin 1,500 mg In 250 Sodium Chloride 0.9% 250 ml @ 125 mls/hr IVPB ONCE ONE Rx#:[id number] Oral 360 Output: Urine 100 Other: Voiding Method Urinal # Bowel Movements 0 - Exam In general patient is alert and oriented in no apparent distress HEENT head normocephalic and atraumatic Neck is supple no JVD no goiter no lymphadenopathy Chest exam is clear to auscultation no crackles no wheezing Cardiac exam reveals regular heart sounds S1 and S2 no gallops no murmurs Abdomen is soft nontender no organomegaly with normal bowel sounds Extremity exam reveals bilateral below knee amputation - Labs CBC & Chem 7: 03/01/17 08:09 03/01/17 08:09 Labs: Abnormal Lab Results - Last 24 Hours (Table) 02/28/17 02/28/17 03/01/17 Range/Units 17:03 20:56 07:22 RBC (4.30-5.90) m/uL Hgb (13.0-17.5) gm/dL Hct (39.0-53.0) % MCHC (31.0-37.0) g/dL Lymphocytes # (1.0-4.8) k/uL Sodium (137-145) mmol/L BUN (9-20) mg/dL Creatinine (0.66-1.25) mg/dL Glucose (74-99) mg/dL POC Glucose (mg/dL) 111 H 257 H 133 H (75-99) mg/dL Calcium (8.4-10.2) mg/dL Total Protein (6.3-8.2) g/dL Albumin (3.5-5.0) g/dL 03/01/17 03/01/17 03/01/17 Range/Units 08:09 08:09 12:23 RBC 3.56 L (4.30-5.90) m/uL Hgb 9.7 L (13.0-17.5) gm/dL Hct 32.8 L (39.0-53.0) % MCHC 29.7 L (31.0-37.0) g/dL Lymphocytes # 0.6 L (1.0-4.8) k/uL Sodium 134 L (137-145) mmol/L BUN 29 H (9-20) mg/dL Creatinine 3.15 H (0.66-1.25) mg/dL Glucose 159 H (74-99) mg/dL POC Glucose (mg/dL) 118 H (75-99) mg/dL Calcium 8.2 L (8.4-10.2) mg/dL Total Protein 4.4 L (6.3-8.2) g/dL Albumin 2.0 L (3.5-5.0) g/dL Assessment and Plan Plan: 1. Right foot is ulcer with necrotic skin changes: Had been on Bactrim outpatient with no improvement. Consult infectious disease. Wound cultures ordered. Antibiotics per infectious disease. patient had evidence of Right foot gangrene s/p below knee amputation on 02/26/2017. 2. Known diabetic ulcer of the right foot with peripheral vascular disease status post angioplasty and stent placement to the right anterior tibial artery by cardiology in January 2017. Patient is also status post amputation of the right second and third toe on 01/09/2017 3. Chronic kidney disease stage V with history of right kidney transplant secondary to his diabetes mellitus. Patient currently on peritoneal dialysis. Consult from nephrology placed 4. Diabetes mellitus type 2. We'll place patient on Humalog sliding scale. Previous hemoglobin A1c was 4.7 5. Chronic atrial fibrillation: Coumadin discontinued on last admission 6. History of peripheral vascular disease secondary to his diabetes mellitus and required a left below the knee amputation 7. Chronic systolic CHF: No evidence of exacerbation. Echo from September 2016 shows an EF of 45-50% 8. Anemia of chronic kidney disease with iron deficiency anemia. 9. History of coronary artery disease with previous coronary artery bypass grafting 10. For pain management pain is not well controlled at this time dose of Dilaudid increased to 1.5 mg IV every 3 hours as needed plan for surgery tomorrow continue current care otherwise
[2017-03-01] MEDS: GABAPENTIN 300 MG CAP PO SCH ×2 (15:26→20:50)
[2017-03-01 17:31] LABS: Glucose,Whole Blood 176 mg/dL (75-99)
[2017-03-01] MEDS: ATORVASTATIN 80 MG TAB PO SCH (20:50)
[2017-03-01] MEDS: CHOLECALCIFEROL 1,000 UNIT TAB PO SCH (20:50)
[2017-03-01] MEDS: ASPIRIN 81 MG PO SCH (20:50)
[2017-03-01 20:58] LABS: Glucose,Whole Blood 122 mg/dL (75-99)
--- NOTE | 2017-03-01 21:38 | PN ---
PROGRESS NOTE Patient is seen for followup for end-stage renal disease. He is currently sitting up in bed. He is comfortable. He is not in any acute distress. His right BKA stump is currently dressed. The patient denies any significant pain. EXAMINATION: Blood pressure is 119/51, heart rate 91 per minute. He is afebrile. Examination shows patient is euvolemic with no evidence of edema in his lower extremities. Abdomen is soft, nontender. LABS: Reveal sodium 134, potassium 4.1, hemoglobin 9.7 g/dL. ASSESSMENT: 1. End-stage renal disease on peritoneal dialysis, tolerating treatment fairly well. 2. Status post right below-knee amputation, currently doing fairly well. 3. Anemia of chronic disease. We will maintain patient on Aranesp. 4. Chronic kidney disease bone mineral disorder maintained on calcitriol. 5. Status post donor transplant, currently on Prograf and Myfortic. I will decrease the immunosuppression as outpatient. The Prograf can be decreased to once a day. May continue with the CellCept for now. MMODL / IJN: [id number] /
[2017-03-01] MEDS: DIALYSIS (PERIT 1.5%) 2,000 ML 30 G/2,000 ML BAG INTRAPERIT SCH (23:47)
[2017-03-01] MEDS: SODIUM CHLORIDE 0.9% 1,000 ML IV SCH (23:48)
[2017-03-02] MEDS: TEMAZEPAM 15 MG CAP PO PRN ×2 (00:36→23:38)
[2017-03-02] MEDS: DIALYSIS (PERIT 2.5%) 2,000 ML 50 G/2,000 ML BAG INTRAPERIT SCH ×3 (05:34→17:12)
[2017-03-02 07:07] LABS: Glucose,Whole Blood 152 mg/dL (75-99)
[2017-03-02] MEDS: DOCUSATE 100 MG CAP PO SCH ×2 (08:29→22:00)
[2017-03-02] MEDS: GABAPENTIN 300 MG CAP PO SCH ×2 (08:29→21:59)
[2017-03-02] MEDS: CLOPIDOGREL 75 MG TAB PO SCH (08:29)
[2017-03-02] MEDS: FUROSEMIDE 20 MG TAB PO SCH ×2 (08:29→15:36)
[2017-03-02] MEDS: SODIUM BICARBONATE TAB 650 MG TAB PO SCH ×2 (08:29→22:00)
[2017-03-02] MEDS: TACROLIMUS 1 MG CAP PO SCH (08:29)
[2017-03-02] MEDS: MYCOPHENOLATE SODIUM DR 180 MG TABLET.DR PO SCH (08:29)
[2017-03-02] MEDS: HEPARIN SODIUM,PORCINE 5,000 UNIT/ML 1 ML VIAL SQ SCH ×2 (08:30→22:00)
[2017-03-02] MEDS: INSULIN LISPRO (humaLOG) 300 UNIT/3 ML VIAL SQ SCH ×4 (08:30→22:07)
[2017-03-02] MEDS: MIDODRINE 5 MG TAB PO SCH (08:30)
[2017-03-02] MEDS: PANTOPRAZOLE 40 MG TABLET PO SCH (08:30)
[2017-03-02] MEDS: HYDROcodone/APAP 5-325MG 1 EACH TAB PO PRN ×2 (08:40→15:35)
[2017-03-02 08:52] LABS: Basophils % (A) 0 %; CH 27.9; CHCM 30.9; Eosinophils % (A) 0 %; HCT 31.1 % (39.0-53.0); HGB 9.4 gm/dL (13.0-17.5); Hypochromasia Slight; Luc # (Auto) 0.13; Luc % (Auto) 2; Lymphocytes # (A) 0.8 k/uL (1.0-4.8); Lymphocytes % (A) 12 %; MCH 27.3 pg (25.0-35.0); MCHC 30.1 g/dL (31.0-37.0); MCV 90.5 fL (80.0-100.0); Mean Platelet Volume 8.1; Monocytes # (A) 0.5 k/uL (0-1.0); Monocytes % (A) 7 %; Neutrophils # (A) 5.3 k/uL (1.3-7.7); Neutrophils % (A) 78 %; RBC 3.44 m/uL (4.30-5.90); RDW 15.4 % (11.5-15.5); WBC 6.8 k/uL (3.8-10.6); WBC (Perox) 7.11
[2017-03-02 09:13] LABS: Calcium 8.1 mg/dL (8.4-10.2); Potassium 3.6 mmol/L (3.5-5.1); Total Bilirubin 0.1 mg/dL (0.2-1.3); Total Protein 4.2 g/dL (6.3-8.2)
[2017-03-02] MEDS ORDERED: LACTULOSE 20 GM/30 ML CUP PO ONE (09:51)
--- NOTE | 2017-03-02 10:15 | P.PN ---
Subjective This is a 61-year-old male with a known history of chronic renal failure with right kidney transplant on peritoneal dialysis. Also has a history of coronary artery disease with previous coronary artery bypass grafting, atrial fibrillation, DVT of the lower extremity with a Melissa filter placed, hypertension and hyperlipidemia. diabetes mellitus type 2, peripheral vascular disease, left BKA, previous hospital admission in January with necrosis of the right second and third toe requiring amputation of those toes on 01/09/2017. Patient also had angioplasty and stent placement to the right anterior tibial artery by cardiology during that admission. Since that admission in January he has had issues with that right foot. He has necrotic tissue on the pad of the foot. There is also some necrotic changes along the lateral aspect of the foot. The posterior part of the foot is red and warm. There is a follow odor present per patient. Patient noted changes of the last 2 weeks. He's been following up with Dr. Nino in the wound care center. He reports he has been on Bactrim in the outpatient setting. Patient was at Dr. Nino office for routine visit and was told to go see Dr. Mosquera and be directly admitted to the hospital for possible amputation of the foot. Patient is also noted some discharge and follow odor from the open area of the ulcer on top of his foot. Patient denies any fever or chills or sweats. Denies any nausea or vomiting. Denies any bowel movement changes or urinary symptoms. 03/02/2017 patient's pain is controlled. He is complaining of some constipation. It's been about 3 days since his last bowel movement. He denies any nausea or vomiting or abdominal pain. Denies any chest pain or shortness of breath. Denies any burning with urination. Patient was doing exercises in bed with his right leg Objective - Vital Signs Vital signs: Vital Signs Temp 97.9 F 03/02/17 07:00 Pulse 68 03/02/17 07:00 Resp 16 03/02/17 07:00 BP 161/60 03/02/17 07:00 Pulse Ox 95 03/02/17 07:00 Intake & Output 03/01/17 03/02/17 03/02/17 18:59 06:59 18:59 Output Total 300 0 Balance -300 0 Weight 81 kg Output: Urine 300 0 Other: Voiding Method Urinal # Voids 150 - Exam Head normocephalic Neck supple Lungs clear to auscultation bilaterally no wheezing or crackles Heart regular rate and rhythm S1-S2, no rub or gallop Abdomen is soft nontender nondistended positive bowel sounds no hepatosplenomegaly Extremities right below the knee amputation. Dressing in place and clean dry and intact. Left below-knee amputation no ulcerations of the skin. Neuro alert and orientated to 3 - Labs CBC & Chem 7: 03/02/17 08:32 03/02/17 08:32 Labs: Abnormal Lab Results - Last 24 Hours (Table) 02/28/17 03/01/17 03/01/17 Range/Units 08:40 12:23 17:23 RBC (4.30-5.90) m/uL Hgb (13.0-17.5) gm/dL Hct (39.0-53.0) % MCHC (31.0-37.0) g/dL Lymphocytes # (1.0-4.8) k/uL Sodium (137-145) mmol/L BUN (9-20) mg/dL Creatinine (0.66-1.25) mg/dL Glucose (74-99) mg/dL POC Glucose (mg/dL) 118 H 176 H (75-99) mg/dL Calcium (8.4-10.2) mg/dL Iron 18 L (65-175) ug/dL TIBC 136 L (228-460) ug/dL Iron Saturation 13.24 L (15.00-50.00) Ferritin 564.4 H (22.0-322.0) ng/mL Total Bilirubin (0.2-1.3) mg/dL Total Protein (6.3-8.2) g/dL Albumin (3.5-5.0) g/dL 03/01/17 03/02/17 03/02/17 Range/Units 20:56 06:50 08:32 RBC 3.44 L (4.30-5.90) m/uL Hgb 9.4 L (13.0-17.5) gm/dL Hct 31.1 L (39.0-53.0) % MCHC 30.1 L (31.0-37.0) g/dL Lymphocytes # 0.8 L (1.0-4.8) k/uL Sodium (137-145) mmol/L BUN (9-20) mg/dL Creatinine (0.66-1.25) mg/dL Glucose (74-99) mg/dL POC Glucose (mg/dL) 122 H 152 H (75-99) mg/dL Calcium (8.4-10.2) mg/dL Iron (65-175) ug/dL TIBC (228-460) ug/dL Iron Saturation (15.00-50.00) Ferritin (22.0-322.0) ng/mL Total Bilirubin (0.2-1.3) mg/dL Total Protein (6.3-8.2) g/dL Albumin (3.5-5.0) g/dL 03/02/17 Range/Units 08:32 RBC (4.30-5.90) m/uL Hgb (13.0-17.5) gm/dL Hct (39.0-53.0) % MCHC (31.0-37.0) g/dL Lymphocytes # (1.0-4.8) k/uL Sodium 134 L (137-145) mmol/L BUN 30 H (9-20) mg/dL Creatinine 2.99 H (0.66-1.25) mg/dL Glucose 155 H (74-99) mg/dL POC Glucose (mg/dL) (75-99) mg/dL Calcium 8.1 L (8.4-10.2) mg/dL Iron (65-175) ug/dL TIBC (228-460) ug/dL Iron Saturation (15.00-50.00) Ferritin (22.0-322.0) ng/mL Total Bilirubin 0.1 L (0.2-1.3) mg/dL Total Protein 4.2 L (6.3-8.2) g/dL Albumin 1.9 L (3.5-5.0) g/dL Assessment and Plan Plan: 1. Right foot is ulcer with necrotic skin changes: Had been on Bactrim outpatient with no improvement. Consult infectious disease. Wound cultures ordered. Antibiotics per infectious disease. patient had evidence of Right foot gangrene s/p below knee amputation on 02/26/2017. Awaiting further vascular surgery and infectious disease recommendations for possible discharge 2. Known diabetic ulcer of the right foot with peripheral vascular disease status post angioplasty and stent placement to the right anterior tibial artery by cardiology in January 2017. Patient is also status post amputation of the right second and third toe on 01/09/2017 3. Chronic kidney disease stage V with history of right kidney transplant secondary to his diabetes mellitus. Patient currently on peritoneal dialysis. Consult from nephrology placed 4. Diabetes mellitus type 2. We'll place patient on Humalog sliding scale. Previous hemoglobin A1c was 4.7 5. Chronic atrial fibrillation: Coumadin discontinued on last admission 6. History of peripheral vascular disease secondary to his diabetes mellitus and required a left below the knee amputation 7. Chronic systolic CHF: No evidence of exacerbation. Echo from September 2016 shows an EF of 45-50% 8. Anemia of chronic kidney disease with iron deficiency anemia. 9. History of coronary artery disease with previous coronary artery bypass grafting 10. For pain management pain is not well controlled at this time dose of Dilaudid increased to 1.5 mg IV every 3 hours as needed 11. Constipation: Increase Colace to twice a day. Add one dose of lactulose. Continue physical therapy. Anticipate discharge home with home care possibly tomorrow I performed an examination of the patient and discussed their management with the physician Logistics Intern. I have reviewed the Physician Logistics Intern's notes and agree with the documented findings and plan of care
[2017-03-02] MEDS: HYDROmorphone 2 MG/ML 1 ML SYRINGE IVP PRN ×3 (10:36→23:38)
--- NOTE | 2017-03-02 10:58 | P.PN ---
Subjective patient is seen in follow-up for end-stage renal disease. He is maintained on peritoneal dialysis. Patient is currently being treated for right toe gangrene - underwent right below the knee amputation 02/26/17. Currently resting in bed. Admits to pain at the surgical site but improved. No problems with peritoneal dialysis. Dialysis fluid is clear. Hemodynamically stable. Denies abdominal pain. Vital signs are stable. General: The patient appeared well nourished and normally developed. HEENT: Head exam is unremarkable. Neck is without jugular venous distension. LUNGS: Lungs are clear to auscultation and percussion. Breath sounds decreased. HEART: Rate and Rhythm are regular. First and second heart sounds normal. No murmurs, rubs or gallops. ABDOMEN: Abdominal exam reveals normal bowel sounds. Non-tender and non- distended. No evidence of peritonitis. EXTREMITITES: Bilateral [id number] amputations noted. Right lower extremity stump wrapped without obvious drainage. Objective - Vital Signs Vital signs: Vital Signs Temp 97.9 F 03/02/17 07:00 Pulse 68 03/02/17 07:00 Resp 16 03/02/17 07:00 BP 161/60 03/02/17 07:00 Pulse Ox 95 03/02/17 07:00 Intake & Output 03/01/17 03/02/17 03/02/17 18:59 06:59 18:59 Output Total 300 0 Balance -300 0 Weight 81 kg Output: Urine 300 0 Other: Voiding Method Urinal # Voids 150 - Labs CBC & Chem 7: 03/02/17 08:32 03/02/17 08:32 Labs: Abnormal Lab Results - Last 24 Hours (Table) 02/28/17 03/01/17 03/01/17 Range/Units 08:40 12:23 17:23 RBC (4.30-5.90) m/uL Hgb (13.0-17.5) gm/dL Hct (39.0-53.0) % MCHC (31.0-37.0) g/dL Lymphocytes # (1.0-4.8) k/uL Sodium (137-145) mmol/L BUN (9-20) mg/dL Creatinine (0.66-1.25) mg/dL Glucose (74-99) mg/dL POC Glucose (mg/dL) 118 H 176 H (75-99) mg/dL Calcium (8.4-10.2) mg/dL Iron 18 L (65-175) ug/dL TIBC 136 L (228-460) ug/dL Iron Saturation 13.24 L (15.00-50.00) Ferritin 564.4 H (22.0-322.0) ng/mL Total Bilirubin (0.2-1.3) mg/dL Total Protein (6.3-8.2) g/dL Albumin (3.5-5.0) g/dL 03/01/17 03/02/17 03/02/17 Range/Units 20:56 06:50 08:32 RBC 3.44 L (4.30-5.90) m/uL Hgb 9.4 L (13.0-17.5) gm/dL Hct 31.1 L (39.0-53.0) % MCHC 30.1 L (31.0-37.0) g/dL Lymphocytes # 0.8 L (1.0-4.8) k/uL Sodium (137-145) mmol/L BUN (9-20) mg/dL Creatinine (0.66-1.25) mg/dL Glucose (74-99) mg/dL POC Glucose (mg/dL) 122 H 152 H (75-99) mg/dL Calcium (8.4-10.2) mg/dL Iron (65-175) ug/dL TIBC (228-460) ug/dL Iron Saturation (15.00-50.00) Ferritin (22.0-322.0) ng/mL Total Bilirubin (0.2-1.3) mg/dL Total Protein (6.3-8.2) g/dL Albumin (3.5-5.0) g/dL 03/02/17 Range/Units 08:32 RBC (4.30-5.90) m/uL Hgb (13.0-17.5) gm/dL Hct (39.0-53.0) % MCHC (31.0-37.0) g/dL Lymphocytes # (1.0-4.8) k/uL Sodium 134 L (137-145) mmol/L BUN 30 H (9-20) mg/dL Creatinine 2.99 H (0.66-1.25) mg/dL Glucose 155 H (74-99) mg/dL POC Glucose (mg/dL) (75-99) mg/dL Calcium 8.1 L (8.4-10.2) mg/dL Iron (65-175) ug/dL TIBC (228-460) ug/dL Iron Saturation (15.00-50.00) Ferritin (22.0-322.0) ng/mL Total Bilirubin 0.1 L (0.2-1.3) mg/dL Total Protein 4.2 L (6.3-8.2) g/dL Albumin 1.9 L (3.5-5.0) g/dL Assessment and Plan Plan: Assessment: #1. End-stage renal disease maintained on peritoneal dialysis. #2. 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 #3. 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 Now being weaned off immunosuppression. #4. History of left below the knee amputation. #5. Diabetes mellitus. Plan: Continue with peritoneal dialysis exchanges with 2 L every 6 hours alternating with 1.5 and 2.5% solution. Antibiotics per infectious disease recommendations. Vascular surgery following. Prednisone discontinued as it can impair wound healing.
[2017-03-02] MEDS: CALCITRIOL 0.25 MCG CAP PO SCH (11:15)
[2017-03-02] MEDS: FOLIC ACID-VIT B COMPLEX-VIT C 1 CAP PO SCH (11:29)
[2017-03-02] MEDS: MAGNESIUM OXIDE 400 MG TAB PO SCH (11:29)
[2017-03-02] MEDS: VIT A,C & E-LUTEIN-MINERALS 1 EACH TAB PO SCH (11:29)
[2017-03-02 12:53] LABS: Glucose,Whole Blood 242 mg/dL (75-99)
--- NOTE | 2017-03-02 13:34 | P.PN ---
Progress Note - Text 61-year-old male, history of peripheral vascular disease, history of chronic renal failure, patient is on peritoneal dialysis patient had a right BK amputation done postoperatively was uneventful dressing has been changed stump side looks great and healing patient is going home plan is change her dressing every 48 hours I will follow in my office in 1 week
[2017-03-02 15:33] VITALS: BMI 32.6
[2017-03-02 17:07] LABS: Glucose,Whole Blood 144 mg/dL (75-99)
--- NOTE | 2017-03-02 17:38 | XR ---
EXAMINATION TYPE: XR chest 1V portable DATE OF EXAM: 03/02/2017 Comparison: 12/20/2016 Clinical History: 61-year-old male copd/pnemonia Findings: Median sternotomy wires are present with post-CABG clips in the mediastinum. Heart is normal size. Mi ld interstitial prominence of the chronic appearance. Focal retrocardiac opacity has a somewhat bandl philip configuration but is increased from prior. No significant pleural effusion. Impression: Focal retrocardiac opacity increased from prior. Suspect atelectasis. Correlate to exclude infectious infiltrate.
[2017-03-02] MEDS ORDERED: VANCOMYCIN 1,500 MG in SODIUM CHLORIDE 0.9% 250 ML IVPB ONE (21:00)
[2017-03-02 21:10] LABS: Glucose,Whole Blood 163 mg/dL (75-99)
--- NOTE | 2017-03-02 21:34 | P.PN ---
Subjective Principal diagnosis: Gangrene right foot Pleasant 61-year-old male who has a history of diabetes mellitus type 2 with many complications that includes end-stage renal disease. He did have a renal transplantation but that has failed. And now undergoes chronic and which were approaching hemodialysis for the renal failure. 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 The patient relates that he is doing modestly well as of late. He did have foot evaluation some toenail cutting performed. Now 3 weeks later he developed evidence of a blister onto his right foot associated with erythema and swelling to the residual second toe. With his neuropathy is not having pain but is very concerned given the left [id number] amputation for limb salvage. Patient denies any known trauma but patient was hospitalized during the summer. At that point in time he was having difficulties with volume overload. This resulted in significant edema which worsen the process to the right foot. He had a significant surgical intervention with amputation of the great and second toe. Despite the surgical intervention is been having nonhealing to the area. He is followed in the wound healing center as well as vascular surgery. He developed increasing discoloration to the lateral aspect of the right foot. Evaluation revealed evidence of severe peripheral vascular disease. The patient did present to the outpatient clinic today and was advised for admission for surgical intervention. There is evidence of bone fragments migrating out of the foot ulceration and worsening of the dry gangrenous changes to the lateral aspect of the foot. The patient also was not feeling well due to the significant infectious process. He is now status post a right qjges-siz-vyjw amputation. Is recovering well. The flap is intact without evidence of necrosis or significant drainage. Edema is under excellent control. He is eating well but is complaining of significant nerve type pain to the right lower extremity with certain motions. Neurontin was started but will take some time to see if he can improve his nerve pain. He is tolerating it well. Objective - Vital Signs Vital signs: Vital Signs Temp 99.2 F 03/02/17 15:00 Pulse 89 03/02/17 15:00 Resp 16 03/02/17 15:00 BP 96/44 03/02/17 15:00 Pulse Ox 97 03/02/17 15:00 Intake & Output 03/02/17 03/02/17 03/03/17 06:59 18:59 06:59 Intake Total 600 Output Total 0 200 Balance 0 400 Weight 81 kg 81 kg Intake: Oral 600 Output: Urine 0 200 Other: Voiding Method Urinal # Voids 150 1 - Exam Pleasant 61-year-old male presents to Hospital with significant change to his right foot. HEENT: Anicteric conjunctiva are pink and moist nasal mucosa grossly intact without significant lesions, there is no thrush. Neck: The neck is supple without significant lymphadenopathy or thyromegaly. Lungs: Good bilateral air entry without significant crackles or wheezing. There is no significant bronchial sounds. There is no egophony or dullness. Heart: Irregular with an audible S1 and S2. No S3 soft S4, 2/6 systolic murmur left sternal border is holosystolic. Abdomen: Positive bowel sounds soft and nontender without palpable masses or organomegaly. There was no guarding or rebound. Extremities: The prior shunt to the left arm is only minimal thrill and apparently is not functional for hemodialysis. The left lower extremity below the knee amputation residual limb is in good order. There is no erythema or crepitance or fluctuance. He wears a radiology interventional physician and has no edema or lesions. The right lower extremity shows evidence of the flap that is intact, no fluctuance, no purulence, no drainage, is intact without evidence of flap necrosis. No ascending erythema. But is very tender to touch and manipulation. Neuro: Awake alert oriented to person place and time. He has dense severe peripheral neuropathy - Labs CBC & Chem 7: 03/02/17 08:32 03/02/17 08:32 Labs: Abnormal Lab Results - Last 24 Hours (Table) 02/28/17 03/02/17 03/02/17 Range/Units 08:40 06:50 08:32 RBC 3.44 L (4.30-5.90) m/uL Hgb 9.4 L (13.0-17.5) gm/dL Hct 31.1 L (39.0-53.0) % MCHC 30.1 L (31.0-37.0) g/dL Lymphocytes # 0.8 L (1.0-4.8) k/uL Sodium (137-145) mmol/L BUN (9-20) mg/dL Creatinine (0.66-1.25) mg/dL Glucose (74-99) mg/dL POC Glucose (mg/dL) 152 H (75-99) mg/dL Calcium (8.4-10.2) mg/dL Iron 18 L (65-175) ug/dL TIBC 136 L (228-460) ug/dL Iron Saturation 13.24 L (15.00-50.00) Ferritin 564.4 H (22.0-322.0) ng/mL Total Bilirubin (0.2-1.3) mg/dL Total Protein (6.3-8.2) g/dL Albumin (3.5-5.0) g/dL 03/02/17 03/02/17 03/02/17 Range/Units 08:32 12:25 17:02 RBC (4.30-5.90) m/uL Hgb (13.0-17.5) gm/dL Hct (39.0-53.0) % MCHC (31.0-37.0) g/dL Lymphocytes # (1.0-4.8) k/uL Sodium 134 L (137-145) mmol/L BUN 30 H (9-20) mg/dL Creatinine 2.99 H (0.66-1.25) mg/dL Glucose 155 H (74-99) mg/dL POC Glucose (mg/dL) 242 H 144 H (75-99) mg/dL Calcium 8.1 L (8.4-10.2) mg/dL Iron (65-175) ug/dL TIBC (228-460) ug/dL Iron Saturation (15.00-50.00) Ferritin (22.0-322.0) ng/mL Total Bilirubin 0.1 L (0.2-1.3) mg/dL Total Protein 4.2 L (6.3-8.2) g/dL Albumin 1.9 L (3.5-5.0) g/dL 03/02/17 Range/Units 21:06 RBC (4.30-5.90) m/uL Hgb (13.0-17.5) gm/dL Hct (39.0-53.0) % MCHC (31.0-37.0) g/dL Lymphocytes # (1.0-4.8) k/uL Sodium (137-145) mmol/L BUN (9-20) mg/dL Creatinine (0.66-1.25) mg/dL Glucose (74-99) mg/dL POC Glucose (mg/dL) 163 H (75-99) mg/dL Calcium (8.4-10.2) mg/dL Iron (65-175) ug/dL TIBC (228-460) ug/dL Iron Saturation (15.00-50.00) Ferritin (22.0-322.0) ng/mL Total Bilirubin (0.2-1.3) mg/dL Total Protein (6.3-8.2) g/dL Albumin (3.5-5.0) g/dL Laboratory Results WBC 6.8 k/uL (3.8-10.6) 03/02/17 08:32 RBC 3.44 m/uL (4.30-5.90) L 03/02/17 08:32 Hgb 9.4 gm/dL (13.0-17.5) L 03/02/17 08:32 Hct 31.1 % (39.0-53.0) L 03/02/17 08:32 MCV 90.5 fL (80.0-100.0) 03/02/17 08:32 MCH 27.3 pg (25.0-35.0) 03/02/17 08:32 MCHC 30.1 g/dL (31.0-37.0) L 03/02/17 08:32 RDW 15.4 % (11.5-15.5) 03/02/17 08:32 Plt Count 287 k/uL (150-450) 03/02/17 08:32 Neutrophils % 78 % 03/02/17 08:32 Lymphocytes % 12 % 03/02/17 08:32 Monocytes % 7 % 03/02/17 08:32 Eosinophils % 0 % 03/02/17 08:32 Basophils % 0 % 03/02/17 08:32 Neutrophils # 5.3 k/uL (1.3-7.7) 03/02/17 08:32 Lymphocytes # 0.8 k/uL (1.0-4.8) L 03/02/17 08:32 Monocytes # 0.5 k/uL (0-1.0) 03/02/17 08:32 Eosinophils # 0.0 k/uL (0-0.7) 03/02/17 08:32 Basophils # 0.0 k/uL (0-0.2) 03/02/17 08:32 Hypochromasia Slight 03/02/17 08:32 Sodium 134 mmol/L (137-145) L 03/02/17 08:32 Potassium 3.6 mmol/L (3.5-5.1) 03/02/17 08:32 Chloride 100 mmol/L (98-107) 03/02/17 08:32 Carbon Dioxide 28 mmol/L (22-30) 03/02/17 08:32 Anion Gap 6 mmol/L 03/02/17 08:32 BUN 30 mg/dL (9-20) H 03/02/17 08:32 Creatinine 2.99 mg/dL (0.66-1.25) H 03/02/17 08:32 Est GFR (MDRD) Af Amer 26 (>60 ml/min/1.73 sqM) 03/02/17 08:32 Est GFR (MDRD) Non-Af 21 (>60 ml/min/1.73 sqM) 03/02/17 08:32 Glucose 155 mg/dL (74-99) H 03/02/17 08:32 POC Glucose (mg/dL) 163 mg/dL (75-99) H 03/02/17 21:06 POC Glu Senior C Web Developer Amina Singh 03/02/17 21:06 Calcium 8.1 mg/dL (8.4-10.2) L 03/02/17 08:32 Phosphorus 3.3 mg/dL (2.5-4.5) 02/24/17 08:27 Iron 18 ug/dL (65-175) L 02/28/17 08:40 TIBC 136 ug/dL (228-460) L 02/28/17 08:40 Iron Saturation 13.24 (15.00-50.00) L 02/28/17 08:40 Ferritin 564.4 ng/mL (22.0-322.0) H 02/28/17 08:40 Total Bilirubin 0.1 mg/dL (0.2-1.3) L 03/02/17 08:32 AST 23 U/L (17-59) 03/02/17 08:32 ALT 27 U/L (21-72) 03/02/17 08:32 Alkaline Phosphatase 79 U/L (38-126) 03/02/17 08:32 Total Protein 4.2 g/dL (6.3-8.2) L 03/02/17 08:32 Albumin 1.9 g/dL (3.5-5.0) L 03/02/17 08:32 Random Vancomycin 21.0 ug/mL 03/02/17 08:32 Blood Type A Positive 02/26/17 04:05 Blood Type Recheck No 02/26/17 04:05 Antibody Screen NEGATIVE 02/26/17 04:05 Spec Expiration Date 03/01/2017 - 5 02/26/17 04:05 Microbiology 02/23/17 14:50 Foot - Right Anaerobic Culture - Final Anaerobic Gram Positive Cocci 02/23/17 14:50 Foot - Right Gram Stain - Final 02/23/17 14:50 Foot - Right Wound Culture - Final Acinetobacter peter/haemol Assessment and Plan (1) Diabetic ulcer of right foot associated with diabetes mellitus due to underlying condition, with necrosis of bone Status: Acute (2) Gangrene of right foot Narrative/Plan: 61-year-old male presents to the office today with evidence of the marked worsening to the diabetic foot ulceration of his right foot. There is evidence of worsening gangrenous changes. Necrotic bone was exposed and easily peeled out of the base of the ulceration. There is also worsened with dry gangrenous changes to the lateral aspect of the foot. The case is discussed with the vascular surgeon. The patient's primary care physician was contacted and ranges were made for admission. The patient has been admitted. He will be seen by cardiology and then proceed to a below-knee amputation in the near future. He has had extensive vascular evaluations performed recently. He's also had some procedures the failed to allow significant improvement of the foot. The patient at this time relates he looks forward to amputation to improve his quality of life. Hopefully they gets up on the 2 prosthesis he will do relatively well. As noted he had a gastric bypass procedure he's lost more than 200 pounds and this has allowed him to be quite mobile with his left leg prosthesis. He is highly motivated and hopefully will be able to ambulate with 2 prosthesis. The patient had physical therapy evaluation and was a 2 person assist. He is agreeing to go to rehabilitation to increase his strength before he goes home because only his daughter is there to help him. Antibiotic therapy at this point in time as directed for the most recent culture with vancomycin and ceftazidime for aceitnobacter are being utilized for now. With the amputation will not require outpatient intravenous antibiotic therapy. Leukocytosis due to the significant gangrenous changes and recent amputation. Showing some improvement. The right [id number] amputation has occurred. We'll plan to continue his antibiotic therapy until tomorrow. Status: Acute (3) Leukocytosis Status: Acute (4) End-stage renal disease on peritoneal dialysis Status: Acute
[2017-03-02] MEDS: ATORVASTATIN 80 MG TAB PO SCH (21:59)
[2017-03-02] MEDS: ASPIRIN 81 MG PO SCH (21:59)
[2017-03-02] MEDS: CHOLECALCIFEROL 1,000 UNIT TAB PO SCH (22:00)
[2017-03-02] MEDS: DIALYSIS (PERIT 1.5%) 2,000 ML 30 G/2,000 ML BAG INTRAPERIT SCH (23:07)
[2017-03-02] MEDS: SODIUM CHLORIDE 0.9% 1,000 ML IV SCH (23:15)
[2017-03-03] MEDS: DIALYSIS (PERIT 2.5%) 2,000 ML 50 G/2,000 ML BAG INTRAPERIT SCH ×3 (06:31→17:43)
[2017-03-03] MEDS: HYDROmorphone 2 MG/ML 1 ML SYRINGE IVP PRN ×5 (06:57→21:01)
[2017-03-03 07:32] LABS: Glucose,Whole Blood 115 mg/dL (75-99)
[2017-03-03] MEDS: INSULIN LISPRO (humaLOG) 300 UNIT/3 ML VIAL SQ SCH ×4 (07:35→21:00)
[2017-03-03] MEDS: HEPARIN SODIUM,PORCINE 5,000 UNIT/ML 1 ML VIAL SQ SCH ×2 (08:05→21:00)
[2017-03-03] MEDS: GABAPENTIN 300 MG CAP PO SCH ×2 (08:05→21:00)
[2017-03-03] MEDS: DOCUSATE 100 MG CAP PO SCH ×2 (08:06→21:00)
[2017-03-03] MEDS: SODIUM BICARBONATE TAB 650 MG TAB PO SCH ×2 (08:06→21:00)
[2017-03-03] MEDS: MYCOPHENOLATE SODIUM DR 180 MG TABLET.DR PO SCH (08:06)
[2017-03-03] MEDS: CLOPIDOGREL 75 MG TAB PO SCH (08:06)
[2017-03-03] MEDS: PANTOPRAZOLE 40 MG TABLET PO SCH (08:06)
[2017-03-03] MEDS: FUROSEMIDE 20 MG TAB PO SCH ×2 (08:06→16:14)
[2017-03-03] MEDS: TACROLIMUS 1 MG CAP PO SCH (08:06)
[2017-03-03] MEDS: MIDODRINE 5 MG TAB PO SCH (08:24)
--- NOTE | 2017-03-03 09:00 | P.PN ---
Subjective patient is seen in follow-up for end-stage renal disease. He is maintained on peritoneal dialysis. Patient is currently being treated for right toe gangrene - underwent right below the knee amputation 02/26/17. Currently resting in bed. Pain better controlled today. No problems with peritoneal dialysis. Dialysis fluid is clear. Hemodynamically stable. Denies abdominal pain. Vital signs are stable. General: The patient appeared well nourished and normally developed. HEENT: Head exam is unremarkable. Neck is without jugular venous distension. LUNGS: Lungs are clear to auscultation and percussion. Breath sounds decreased. HEART: Rate and Rhythm are regular. First and second heart sounds normal. No murmurs, rubs or gallops. ABDOMEN: Abdominal exam reveals normal bowel sounds. Non-tender and non- distended. No evidence of peritonitis. EXTREMITITES: Bilateral cocwq-qmv-jvix amputations noted. Right lower extremity stump wrapped without obvious drainage. Objective - Vital Signs Vital signs: Vital Signs Temp 98.6 F 03/03/17 07:00 Pulse 93 03/03/17 07:00 Resp 18 03/03/17 07:00 BP 93/42 03/03/17 07:00 Pulse Ox 98 03/03/17 07:00 Intake & Output 03/02/17 03/03/17 03/03/17 18:59 06:59 18:59 Intake Total 600 Output Total 200 Balance 400 Weight 81 kg 77.5 kg Intake: Oral 600 Output: Urine 200 Other: Voiding Method Urinal # Voids 1 1 - Labs CBC & Chem 7: 03/02/17 08:32 03/02/17 08:32 Labs: Abnormal Lab Results - Last 24 Hours (Table) 03/02/17 03/02/17 03/02/17 Range/Units 08:32 08:32 12:25 RBC 3.44 L (4.30-5.90) m/uL Hgb 9.4 L (13.0-17.5) gm/dL Hct 31.1 L (39.0-53.0) % MCHC 30.1 L (31.0-37.0) g/dL Lymphocytes # 0.8 L (1.0-4.8) k/uL Sodium 134 L (137-145) mmol/L BUN 30 H (9-20) mg/dL Creatinine 2.99 H (0.66-1.25) mg/dL Glucose 155 H (74-99) mg/dL POC Glucose (mg/dL) 242 H (75-99) mg/dL Calcium 8.1 L (8.4-10.2) mg/dL Total Bilirubin 0.1 L (0.2-1.3) mg/dL Total Protein 4.2 L (6.3-8.2) g/dL Albumin 1.9 L (3.5-5.0) g/dL 03/02/17 03/02/17 03/03/17 Range/Units 17:02 21:06 07:21 RBC (4.30-5.90) m/uL Hgb (13.0-17.5) gm/dL Hct (39.0-53.0) % MCHC (31.0-37.0) g/dL Lymphocytes # (1.0-4.8) k/uL Sodium (137-145) mmol/L BUN (9-20) mg/dL Creatinine (0.66-1.25) mg/dL Glucose (74-99) mg/dL POC Glucose (mg/dL) 144 H 163 H 115 H (75-99) mg/dL Calcium (8.4-10.2) mg/dL Total Bilirubin (0.2-1.3) mg/dL Total Protein (6.3-8.2) g/dL Albumin (3.5-5.0) g/dL Assessment and Plan Plan: Assessment: #1. End-stage renal disease maintained on peritoneal dialysis. #2. 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 #3. 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 Now being weaned off immunosuppression. #4. History of left below the knee amputation. #5. Diabetes mellitus. Plan: Continue with peritoneal dialysis exchanges with 2 L every 6 hours alternating with 1.5 and 2.5% solution. Antibiotics per infectious disease recommendations. Vascular surgery following. Prednisone discontinued as it can impair wound healing. Potential subacute rehab upon discharge.
[2017-03-03 10:43] LABS: Basophils % (A) 0 %; CH 27.6; CHCM 29.8; Eosinophils % (A) 0 %; HDW 2.75; HGB 9.2 gm/dL (13.0-17.5); Hypochromasia Marked; Luc # (Auto) 0.13; Luc % (Auto) 2; Lymphocytes # (A) 0.6 k/uL (1.0-4.8); Lymphocytes % (A) 9 %; MCH 27.6 pg (25.0-35.0); MCHC 29.6 g/dL (31.0-37.0); MCV 93.2 fL (80.0-100.0); Mean Platelet Volume 8.3; Monocytes # (A) 0.5 k/uL (0-1.0); Monocytes % (A) 7 %; Neutrophils # (A) 5.7 k/uL (1.3-7.7); Neutrophils % (A) 82 %; RBC 3.32 m/uL (4.30-5.90); RDW 15.5 % (11.5-15.5); WBC (Perox) 7.16
[2017-03-03 10:59] LABS: Calcium 7.6 mg/dL (8.4-10.2); Potassium 4.1 mmol/L (3.5-5.1)
[2017-03-03] MEDS: FOLIC ACID-VIT B COMPLEX-VIT C 1 CAP PO SCH (11:18)
[2017-03-03] MEDS: CALCITRIOL 0.25 MCG CAP PO SCH (11:18)
[2017-03-03] MEDS: VIT A,C & E-LUTEIN-MINERALS 1 EACH TAB PO SCH (11:18)
[2017-03-03] MEDS: MAGNESIUM OXIDE 400 MG TAB PO SCH (11:18)
--- NOTE | 2017-03-03 12:24 | P.DS ---
Providers Date of admission: 02/23/17 14:12 Expected date of discharge: 03/03/17 Attending physician: Kyrie Mosquera Consults: 02/23/17 14:35 Consult Physician Routine Consulting Provider: Maycol Nino Consult Reason/Comments: right foot ulcer Do you want consulting provider notified?: Yes 02/23/17 14:36 Consult Physician Routine Consulting Provider: Aniceto Frederick Consult Reason/Comments: dialysis Do you want consulting provider notified?: Yes 02/23/17 15:43 Consult Physician Routine Consulting Provider: Don Dugan Consult Reason/Comments: necrotic right foot ulcer Do you want consulting provider notified?: Yes Primary care physician: Kyrie Eveline [facility] Course: Discharge diagnosis 1. Right foot is ulcer with necrotic skin changes and gangrene: Had been on Bactrim outpatient with no improvement. Consult infectious disease. Wound cultures ordered. Antibiotics per infectious disease. patient had evidence of Right foot gangrene s/p below knee amputation on 02/26/2017. Awaiting further vascular surgery and infectious disease recommendations for possible discharge 2. Known diabetic ulcer of the right foot with peripheral vascular disease status post angioplasty and stent placement to the right anterior tibial artery by cardiology in January 2017. Patient is also status post amputation of the right second and third toe on 01/09/2017 3. Chronic kidney disease stage V with history of right kidney transplant secondary to his diabetes mellitus. Patient currently on peritoneal dialysis. Consult from nephrology placed 4. Diabetes mellitus type 2. We'll place patient on Humalog sliding scale. Previous hemoglobin A1c was 4.7 5. Chronic atrial fibrillation: Coumadin discontinued on last admission 6. History of peripheral vascular disease secondary to his diabetes mellitus and required a left below the knee amputation 7. Chronic systolic CHF: No evidence of exacerbation. Echo from September 2016 shows an EF of 45-50% 8. Anemia of chronic kidney disease with iron deficiency anemia. 9. History of coronary artery disease with previous coronary artery bypass grafting 10. For pain management [place] be increased as 7.5 mg every 4 hours as needed for pain 11. Constipation: Increase Colace to twice a day. Patient did have a small hard bowel movement yesterday after the lactulose. He'll be sent to the [facility] with Colace and [facility] course This is a 61-year-old male with a known history of chronic renal failure with right kidney transplant on peritoneal dialysis. Also has a history of coronary artery disease with previous coronary artery bypass grafting, atrial fibrillation, DVT of the lower extremity with a [place] filter placed, hypertension and hyperlipidemia. diabetes mellitus type 2, peripheral vascular disease, left BKA, previous hospital admission in January with necrosis of the right second and third toe requiring amputation of those toes on 01/09/2017. Patient also had angioplasty and stent placement to the right anterior tibial artery by cardiology during that admission. Since that admission in January he has had issues with that right foot. He has necrotic tissue on the pad of the foot. There is also some necrotic changes along the lateral aspect of the foot. The posterior part of the foot is red and warm. There is a follow odor present per patient. Patient noted changes of the last 2 weeks. He's been following up with Dr. Nino in the wound care center. He reports he has been on Bactrim in the outpatient setting. Patient was at Dr. Nino office for routine visit and was told to go see Dr. Mosquera and be directly admitted to the hospital for possible amputation of the foot. Patient is also noted some discharge and follow odor from the open area of the ulcer on top of his foot. Patient denies any fever or chills or sweats. Denies any nausea or vomiting. Denies any bowel movement changes or urinary symptoms. Patient was seen by vascular surgery and underwent a right below the knee amputation on 02/26/2017. He tolerated surgery well. Infectious disease followed closely. He had been maintained on IV antibiotics in the form of Fortaz and vancomycin. Since patient had the amputation no need for antibiotics at time of discharge. The patient will be discharged without antibiotics. He has been cleared by infectious disease and vascular surgery for discharge. Patient also was seen by cardiology prior to surgery for cardiac clearance and they will follow up with him as outpatient. Patient was followed by nephrology. He's maintained on peritoneal dialysis for his end- stage renal disease. They will further decrease the immunosuppression as outpatient. Patient will follow-up with Dr. Saini in 1 week. Nephrology also recommending to discontinue the prednisone because it can impair wound healing. Patient has been cleared by consulting physicians. He is stable for discharge. He'll be discharged to [facility] for further rehabilitation. Dr. Campo will follow patient at [facility]. Dr. Dugan is recommending dressing changes every 48 hours to the right stump. Please refer to chart for any further details. I performed an examination of the patient and discussed their management with the physician Medical Appointment Scheduler. I have reviewed the Physician Medical Appointment Scheduler's notes and agree with the documented findings and plan of care Patient Condition at Discharge: Stable Plan - Discharge Summary New Discharge Prescriptions: New Docusate [Colace] 100 mg PO BID cap Gabapentin [Neurontin] 300 mg PO BID #60 cap HYDROcodone/APAP 7.5-325MG [[place] 7.5-325] 1 tab PO Q4H PRN #40 tab PRN Reason: Pain Continue Cholecalciferol [Vitamin D3] 5,000 mg PO HS Sodium Bicarbonate Tab 650 mg PO BID Tacrolimus [Prograf] 1 mg PO BID Magnesium Gluconate [Magonate] 500 mg PO DAILY Aspirin EC [Ecotrin Low Dose] 81 mg PO HS Atorvastatin [Lipitor] 80 mg PO HS Calcitriol 0.5 mcg PO DAILY Vit C/E/Zn/Coppr/Lutein/Zeaxan [Preservision Areds 2 Softgel] 1 cap PO BID INSULIN LISPRO (HumaLOG) [humaLOG] See Protocol SQ ACHS Mycophenolate Sodium Dr [Myfortic] 360 mg PO DAILY Ferrous Sulfate [Feosol] 325 mg PO BID #60 tab Renaplex D Vitamin 1 tab PO DAILY Midodrine HCl [ProAmatine] 5 mg PO DAILY Furosemide [Lasix] 20 mg PO BID Clopidogrel [Plavix] 75 mg PO DAILY #30 tab Temazepam [Restoril] 15 mg PO HS #30 Discontinued predniSONE 5 mg PO DAILY tab Docusate [Colace] 200 mg PO HS PRN PRN Reason: Constipation Sulfamethox-Tmp 400-80Mg [Bactrim SS 400-80 mg] 1 tab PO Q12HR #60 tablet Discharge Medication List Cholecalciferol [Vitamin D3] 5,000 mg PO HS 05/17/14 [History] Sodium Bicarbonate Tab 650 mg PO BID 05/17/14 [History] Tacrolimus [Prograf] 1 mg PO BID 12/06/14 [History] Magnesium Gluconate [Magonate] 500 mg PO DAILY 02/01/15 [History] Aspirin EC [Ecotrin Low Dose] 81 mg PO HS 02/12/16 [History] Atorvastatin [Lipitor] 80 mg PO HS 02/12/16 [History] Calcitriol 0.5 mcg PO DAILY 02/12/16 [History] Vit C/E/Zn/Coppr/Lutein/Zeaxan [Preservision Areds 2 Softgel] 1 cap PO BID 02/11 [History] INSULIN LISPRO (HumaLOG) [humaLOG] See Protocol SQ ACHS 07/19/16 [History] Mycophenolate Sodium Dr [Myfortic] 360 mg PO DAILY 09/15/16 [History] Ferrous Sulfate [Feosol] 325 mg PO BID #60 tab 12/22/16 [Rx] Furosemide [Lasix] 20 mg PO BID 01/01/17 [History] Midodrine HCl [ProAmatine] 5 mg PO DAILY 01/01/17 [History] Renaplex D Vitamin 1 tab PO DAILY 01/01/17 [History] Clopidogrel [Plavix] 75 mg PO DAILY #30 tab 01/10/17 [Rx] Docusate [Colace] 100 mg PO BID cap 03/03/17 [Rx] Gabapentin [Neurontin] 300 mg PO BID #60 cap 03/03/17 [Rx] HYDROcodone/APAP 7.5-325MG [[place] 7.5-325] 1 tab PO Q4H PRN #40 tab 03/03/17 [Rx ] Polyethylene Glycol 3350 [Miralax] 17 gm PO DAILY #30 packet 03/03/17 [Rx] Temazepam [Restoril] 15 mg PO HS #30 03/03/17 [Rx] Follow up Appointment(s)/Referral(s): Darryn Gomez MD [STAFF PHYSICIAN] - 2 Weeks [facility], [NON-STAFF] - (When discharged ) [facility], [NON-STAFF] - 1 Week Kyrie Mosquera MD [Primary Care Provider] - 1 Week Don Dugan MD [STAFF PHYSICIAN] - 03/06/17 (Suture removal) Patient Instructions/Handouts: Heart Failure (DC), Below the Knee Amputation ( DC), Type 2 Diabetes in Adults (DC) Activity/Diet/Wound Care/Special Instructions: [employer] for commode and transfer board (#[phone]) Cardiac, diabetic diet. Continue with peritoneal dialysis exchanges with 2 liters every 6 hours alternating with 1.5 - 2.5 solution. Fall precautions, up with assist. Change dressing to right stump every 48 hours. Discharge patient to [facility]. Dr. Campo to follow at [facility] Discharge Disposition: TRANSFER TO SNF/ECF
[2017-03-03 12:32] LABS: Glucose,Whole Blood 294 mg/dL (75-99)
[2017-03-03 17:13] LABS: Glucose,Whole Blood 91 mg/dL (75-99)
--- NOTE | 2017-03-03 20:46 | P.PN ---
Subjective Principal diagnosis: Gangrene right foot Pleasant 61-year-old male who has a history of diabetes mellitus type 2 with many complications that includes end-stage renal disease. He did have a renal transplantation but that has failed. And now undergoes chronic and which were approaching hemodialysis for the renal failure. 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 The patient relates that he is doing modestly well as of late. He did have foot evaluation some toenail cutting performed. Now 3 weeks later he developed evidence of a blister onto his right foot associated with erythema and swelling to the residual second toe. With his neuropathy is not having pain but is very concerned given the left [id number]-[id number] amputation for limb salvage. Patient denies any known trauma but patient was hospitalized during the summer. At that point in time he was having difficulties with volume overload. This resulted in significant edema which worsen the process to the right foot. He had a significant surgical intervention with amputation of the great and second toe. Despite the surgical intervention is been having nonhealing to the area. He is followed in the wound healing center as well as vascular surgery. He developed increasing discoloration to the lateral aspect of the right foot. Evaluation revealed evidence of severe peripheral vascular disease. The patient did present to the outpatient clinic today and was advised for admission for surgical intervention. There is evidence of bone fragments migrating out of the foot ulceration and worsening of the dry gangrenous changes to the lateral aspect of the foot. The patient also was not feeling well due to the significant infectious process. He is now status post a right [id number] amputation. Is recovering well. The flap is intact without evidence of necrosis or significant drainage. Edema is under excellent control. He is eating well but is complaining of significant nerve type pain to the right lower extremity with certain motions. Neurontin was started but will take some time to see if he can improve his nerve pain. He is tolerating it well. He looks forward to going to rehab that he can improve his functional status to get home to his family. Objective - Vital Signs Vital signs: Vital Signs Temp 98.9 F 03/03/17 17:50 Pulse 85 03/03/17 17:50 Resp 16 03/03/17 17:50 BP 142/51 03/03/17 17:50 Pulse Ox 97 03/03/17 15:00 Intake & Output 03/03/17 03/03/17 03/04/17 06:59 18:59 06:59 Intake Total 210 Balance 210 Weight 77.5 kg Intake: IV 210 Sodium Chloride 0.9% 1, 160 000 ml @ 20 mls/hr IV . Q24H [facility] Rx#:[id number] cefTAZidime 0.5 gm In 50 Sodium Chloride 0.9% 50 ml @ 100 mls/hr IVPB DAILY [facility] Rx#:[id number] Other: Voiding Method Urinal # Voids 1 - Exam Pleasant 61-year-old male presents to Hospital with significant change to his right foot. HEENT: Anicteric conjunctiva are pink and moist nasal mucosa grossly intact without significant lesions, there is no thrush. Neck: The neck is supple without significant lymphadenopathy or thyromegaly. Lungs: Good bilateral air entry without significant crackles or wheezing. There is no significant bronchial sounds. There is no egophony or dullness. Heart: Irregular with an audible S1 and S2. No S3 soft S4, 2/6 systolic murmur left sternal border is holosystolic. Abdomen: Positive bowel sounds soft and nontender without palpable masses or organomegaly. There was no guarding or rebound. Extremities: The prior shunt to the left arm is only minimal thrill and apparently is not functional for hemodialysis. The left lower extremity below the knee amputation residual limb is in good order. There is no erythema or crepitance or fluctuance. He wears a senior associate and has no edema or lesions. The right lower extremity shows evidence of the flap that is intact, no fluctuance, no purulence, no drainage, is intact without evidence of flap necrosis. No ascending erythema. But is very tender to touch and manipulation. Neuro: Awake alert oriented to person place and time. He has dense severe peripheral neuropathy - Labs CBC & Chem 7: 03/03/17 10:01 03/03/17 10:01 Labs: Abnormal Lab Results - Last 24 Hours (Table) 03/02/17 03/03/17 03/03/17 Range/Units 21:06 07:21 10:01 RBC (4.30-5.90) m/uL Hgb (13.0-17.5) gm/dL Hct (39.0-53.0) % MCHC (31.0-37.0) g/dL Lymphocytes # (1.0-4.8) k/uL Sodium 132 L (137-145) mmol/L BUN 31 H (9-20) mg/dL Creatinine 2.97 H (0.66-1.25) mg/dL Glucose 243 H (74-99) mg/dL POC Glucose (mg/dL) 163 H 115 H (75-99) mg/dL Calcium 7.6 L (8.4-10.2) mg/dL 03/03/17 03/03/17 Range/Units 10:01 12:27 RBC 3.32 L (4.30-5.90) m/uL Hgb 9.2 L (13.0-17.5) gm/dL Hct 31.0 L (39.0-53.0) % MCHC 29.6 L (31.0-37.0) g/dL Lymphocytes # 0.6 L (1.0-4.8) k/uL Sodium (137-145) mmol/L BUN (9-20) mg/dL Creatinine (0.66-1.25) mg/dL Glucose (74-99) mg/dL POC Glucose (mg/dL) 294 H (75-99) mg/dL Calcium (8.4-10.2) mg/dL Laboratory Results WBC 7.0 k/uL (3.8-10.6) 03/03/17 10:01 RBC 3.32 m/uL (4.30-5.90) L 03/03/17 10:01 Hgb 9.2 gm/dL (13.0-17.5) L 03/03/17 10:01 Hct 31.0 % (39.0-53.0) L 03/03/17 10:01 MCV 93.2 fL (80.0-100.0) 03/03/17 10:01 MCH 27.6 pg (25.0-35.0) 03/03/17 10:01 MCHC 29.6 g/dL (31.0-37.0) L 03/03/17 10:01 RDW 15.5 % (11.5-15.5) 03/03/17 10:01 Plt Count 295 k/uL (150-450) 03/03/17 10:01 Neutrophils % 82 % 03/03/17 10:01 Lymphocytes % 9 % 03/03/17 10:01 Monocytes % 7 % 03/03/17 10:01 Eosinophils % 0 % 03/03/17 10:01 Basophils % 0 % 03/03/17 10:01 Neutrophils # 5.7 k/uL (1.3-7.7) 03/03/17 10:01 Lymphocytes # 0.6 k/uL (1.0-4.8) L 03/03/17 10:01 Monocytes # 0.5 k/uL (0-1.0) 03/03/17 10:01 Eosinophils # 0.0 k/uL (0-0.7) 03/03/17 10:01 Basophils # 0.0 k/uL (0-0.2) 03/03/17 10:01 Hypochromasia Marked 03/03/17 10:01 Sodium 132 mmol/L (137-145) L 03/03/17 10:01 Potassium 4.1 mmol/L (3.5-5.1) 03/03/17 10:01 Chloride 100 mmol/L (98-107) 03/03/17 10:01 Carbon Dioxide 25 mmol/L (22-30) 03/03/17 10:01 Anion Gap 7 mmol/L 03/03/17 10:01 BUN 31 mg/dL (9-20) H 03/03/17 10:01 Creatinine 2.97 mg/dL (0.66-1.25) H 03/03/17 10:01 Est GFR (MDRD) Af Amer 26 (>60 ml/min/1.73 sqM) 03/03/17 10:01 Est GFR (MDRD) Non-Af 22 (>60 ml/min/1.73 sqM) 03/03/17 10:01 Glucose 243 mg/dL (74-99) H 03/03/17 10:01 POC Glucose (mg/dL) 91 mg/dL (75-99) 03/03/17 17:11 POC Glu [employer] ROSIE Lorie Trammell 03/03/17 17:11 Calcium 7.6 mg/dL (8.4-10.2) L 03/03/17 10:01 Phosphorus 3.3 mg/dL (2.5-4.5) 02/24/17 08:27 Iron 18 ug/dL (65-175) L 02/28/17 08:40 TIBC 136 ug/dL (228-460) L 02/28/17 08:40 Iron Saturation 13.24 (15.00-50.00) L 02/28/17 08:40 Ferritin 564.4 ng/mL (22.0-322.0) H 02/28/17 08:40 Total Bilirubin 0.1 mg/dL (0.2-1.3) L 03/02/17 08:32 AST 23 U/L (17-59) 03/02/17 08:32 ALT 27 U/L (21-72) 03/02/17 08:32 Alkaline Phosphatase 79 U/L (38-126) 03/02/17 08:32 Total Protein 4.2 g/dL (6.3-8.2) L 03/02/17 08:32 Albumin 1.9 g/dL (3.5-5.0) L 03/02/17 08:32 Random Vancomycin 21.0 ug/mL 03/02/17 08:32 Blood Type A Positive 02/26/17 04:05 Blood Type Recheck No 02/26/17 04:05 Antibody Screen NEGATIVE 02/26/17 04:05 Spec Expiration Date 03/01/2017 - 4538 02/26/17 04:05 Microbiology 02/23/17 14:50 Foot - Right Anaerobic Culture - Final Anaerobic Gram Positive Cocci 02/23/17 14:50 Foot - Right Gram Stain - Final 02/23/17 14:50 Foot - Right Wound Culture - Final Acinetobacter peter/haemol Assessment and Plan (1) Diabetic ulcer of right foot associated with diabetes mellitus due to underlying condition, with necrosis of bone Status: Acute (2) Gangrene of right foot Narrative/Plan: 61-year-old male presents to the office today with evidence of the marked worsening to the diabetic foot ulceration of his right foot. There is evidence of worsening gangrenous changes. Necrotic bone was exposed and easily peeled out of the base of the ulceration. There is also worsened with dry gangrenous changes to the lateral aspect of the foot. The case is discussed with the vascular surgeon. The patient's primary care physician was contacted and ranges were made for admission. The patient has been admitted. He will be seen by cardiology and then proceed to a below-knee amputation in the near future. He has had extensive vascular evaluations performed recently. He's also had some procedures the failed to allow significant improvement of the foot. The patient at this time relates he looks forward to amputation to improve his quality of life. Hopefully they gets up on the 2 prosthesis he will do relatively well. As noted he had a gastric bypass procedure he's lost more than 200 pounds and this has allowed him to be quite mobile with his left leg prosthesis. He is highly motivated and hopefully will be able to ambulate with 2 prosthesis. The patient had physical therapy evaluation and was a 2 person assist. He is agreeing to go to rehabilitation to increase his strength before he goes home because only his daughter is there to help him. Antibiotic therapy at this point in time as directed for the most recent culture with vancomycin and ceftazidime for aceitnobacter are being utilized for now. With the amputation will not require outpatient intravenous antibiotic therapy. Antibiotic therapy will complete today. Anticipate that he will be heading to the extended care facility stay for his rehab. Leukocytosis has resolved. The patient will follow with his vascular surgeon. We'll be happy to see him the wound healing center if there is any difficulties with flap necrosis. Status: Acute (3) Leukocytosis Status: Acute (4) End-stage renal disease on peritoneal dialysis Status: Acute
[2017-03-03] MEDS: ASPIRIN 81 MG PO SCH (20:59)
[2017-03-03] MEDS: ATORVASTATIN 80 MG TAB PO SCH (20:59)
[2017-03-03] MEDS: CHOLECALCIFEROL 1,000 UNIT TAB PO SCH (20:59)
[2017-03-03 21:10] LABS: Glucose,Whole Blood 180 mg/dL (75-99)
[2017-03-03] MEDS: DIALYSIS (PERIT 1.5%) 2,000 ML 30 G/2,000 ML BAG INTRAPERIT SCH (23:21)
[2017-03-04] MEDS: HYDROmorphone 2 MG/ML 1 ML SYRINGE IVP PRN ×4 (00:07→11:40)
[2017-03-04] MEDS: TEMAZEPAM 15 MG CAP PO PRN (00:07)
[2017-03-04] MEDS: SODIUM CHLORIDE 0.9% 1,000 ML IV SCH (04:02)
[2017-03-04] MEDS: DIALYSIS (PERIT 2.5%) 2,000 ML 50 G/2,000 ML BAG INTRAPERIT SCH ×2 (05:49→11:24)
[2017-03-04 07:27] VITALS: BP 111/46; PULSE 87; RESP 18; TEMP 97.3
[2017-03-04 07:36] LABS: Glucose,Whole Blood 152 mg/dL (75-99)
[2017-03-04] MEDS: DOCUSATE 100 MG CAP PO SCH (08:19)
[2017-03-04] MEDS: FUROSEMIDE 20 MG TAB PO SCH (08:19)
[2017-03-04] MEDS: SODIUM BICARBONATE TAB 650 MG TAB PO SCH (08:19)
[2017-03-04] MEDS: CLOPIDOGREL 75 MG TAB PO SCH (08:20)
[2017-03-04] MEDS: PANTOPRAZOLE 40 MG TABLET PO SCH (08:20)
[2017-03-04] MEDS: GABAPENTIN 300 MG CAP PO SCH (08:20)
[2017-03-04] MEDS: MYCOPHENOLATE SODIUM DR 180 MG TABLET.DR PO SCH (08:21)
[2017-03-04] MEDS: HEPARIN SODIUM,PORCINE 5,000 UNIT/ML 1 ML VIAL SQ SCH (08:21)
[2017-03-04] MEDS: MIDODRINE 5 MG TAB PO SCH (08:21)
[2017-03-04] MEDS: TACROLIMUS 1 MG CAP PO SCH (08:22)
[2017-03-04] MEDS: INSULIN LISPRO (humaLOG) 300 UNIT/3 ML VIAL SQ SCH ×2 (08:23→12:14)
[2017-03-04 09:22] LABS: Basophils % (A) 1 %; CH 26.8; Eosinophils # (A) 0.1 k/uL (0-0.7); Eosinophils % (A) 1 %; HCT 32.1 % (39.0-53.0); HDW 2.78; HGB 9.8 gm/dL (13.0-17.5); Hypochromasia Marked; Luc # (Auto) 0.12; Luc % (Auto) 2; Lymphocytes # (A) 0.6 k/uL (1.0-4.8); Lymphocytes % (A) 12 %; MCH 28.3 pg (25.0-35.0); MCHC 30.5 g/dL (31.0-37.0); MCV 92.8 fL (80.0-100.0); Mean Platelet Volume 8.1; Monocytes # (A) 0.5 k/uL (0-1.0); Monocytes % (A) 9 %; Neutrophils % (A) 76 %; RBC 3.46 m/uL (4.30-5.90); RDW 14.7 % (11.5-15.5); WBC 5.3 k/uL (3.8-10.6); WBC (Perox) 4.62
[2017-03-04 09:40] LABS: Glucose,Whole Blood 233 mg/dL (75-99)
[2017-03-04 10:25] LABS: Calcium 8.6 mg/dL (8.4-10.2); Potassium 4.5 mmol/L (3.5-5.1)
[2017-03-04] MEDS: MAGNESIUM OXIDE 400 MG TAB PO SCH (11:24)
[2017-03-04] MEDS: CALCITRIOL 0.25 MCG CAP PO SCH (11:24)
[2017-03-04] MEDS: FOLIC ACID-VIT B COMPLEX-VIT C 1 CAP PO SCH (11:24)
[2017-03-04] MEDS: VIT A,C & E-LUTEIN-MINERALS 1 EACH TAB PO SCH (11:24)
[2017-03-04] MEDS ORDERED: HYDROcodone/APAP 10-325MG 1 EACH TAB PO PRN (11:32)
[2017-03-04 12:16] LABS: Glucose,Whole Blood 206 mg/dL (75-99)
--- NOTE | 2017-03-06 12:59 | OP ---
OPERATIVE REPORT PREOPERATIVE DIAGNOSIS: Gangrene right foot. PROCEDURE: Right below-knee amputation. This patient has history of chronic renal failure, diabetes, peripheral vascular disease. Patient had toes removed by Dr. Mcdaniel in the past. Patient developed open wound with wet gangrene of the right foot. Patient was brought to the operating room. Right leg was prepped and draped in the sterile manner. Incisions were made for the anterior flap 6 cm from the tibial tuberosity for the anterior flap deepened through skin, fat, and fascia. The posterior flap incision was made which was longer than the anterior flap incision, deepened through skin, fat, and fascia. After that, the medial compartment muscles were divided and the tibial vessels were identified which were heavily calcified which was divided and suture-ligated with 0 Prolene. Then the lateral compartment muscles were divided until we reached the fibula and tibial vessels veins were divided and suture ligated. Then I use the periosteum elevator, periosteum elevated from the tibia and fibula. Using hand saw we divided the fibula shorter than the tibia and then using hand saw we divided the tibia. Posterior flap was created and muscles were divided for the posterior flap and specimen was removed. There was some bleeding points which were suture ligated. The tibia and fibula were covered by the anterior and posterior compartment muscles by using 3-0 Vicryl and then fascia was approximated with 3-0 Vicryl with interrupted sutures. Skin was closed with 4-0 nylon with interrupted sutures. Dressing applied. Patient tolerated the procedure well. MMODL / IJN: [id number] /
== END 2017-03-04 13:08 | DRG 239 ==
LOC: 4MS4W 14:12
PROVIDERS: ADMIT Internal Medicine; ATTEND Internal Medicine
PROC: 3E1M39Z Irrigation of Peritoneal Cavity using Dialysate, Percutaneous Approach (ICD-10-PCS; principal; 2017-02-23)
PROC: 0Y6H0Z1 Detachment at Right Lower Leg, High, Open Approach (ICD-10-PCS; 2017-02-24)
DX: E11.52 Type 2 diabetes mellitus with diabetic peripheral angiopathy with gangrene (principal); N18.6 End stage renal disease; I13.2 Hypertensive heart and chronic kidney disease with heart failure and with stage 5 chronic kidney disease, or end stage renal disease; T86.12 Kidney transplant failure; E11.42 Type 2 diabetes mellitus with diabetic polyneuropathy; E11.22 Type 2 diabetes mellitus with diabetic chronic kidney disease; I48.0 Paroxysmal atrial fibrillation; Z94.0 Kidney transplant status; I50.22 Chronic systolic (congestive) heart failure; E11.621 Type 2 diabetes mellitus with foot ulcer; L97.519 Non-pressure chronic ulcer of other part of right foot with unspecified severity; K21.9 Gastro-esophageal reflux disease without esophagitis; M19.91 Primary osteoarthritis, unspecified site; H40.9 Unspecified glaucoma; D63.1 Anemia in chronic kidney disease; D50.9 Iron deficiency anemia, unspecified; E78.5 Hyperlipidemia, unspecified; I25.10 Atherosclerotic heart disease of native coronary artery without angina pectoris; K59.00 Constipation, unspecified; E07.9 Disorder of thyroid, unspecified; I25.2 Old myocardial infarction; Z99.2 Dependence on renal dialysis; H54.61 Unqualified visual loss, right eye, normal vision left eye; Z79.02 Long term (current) use of antithrombotics/antiplatelets; Z79.82 Long term (current) use of aspirin; Z79.52 Long term (current) use of systemic steroids; Z79.899 Other long term (current) drug therapy; Z79.4 Long term (current) use of insulin; Z89.512 Acquired absence of left leg below knee; Z86.718 Personal history of other venous thrombosis and embolism; Z89.411 Acquired absence of right great toe; Z89.421 Acquired absence of other right toe(s); Z98.84 Bariatric surgery status; Z95.1 Presence of aortocoronary bypass graft; Z95.828 Presence of other vascular implants and grafts; Z98.42 Cataract extraction status, left eye; Z98.41 Cataract extraction status, right eye; Z87.891 Personal history of nicotine dependence; Z88.5 Allergy status to narcotic agent; Z83.3 Family history of diabetes mellitus
CPT/HCPCS: 71010; 80048; 80053; 80202; 82728; 83540; 83550; 84100; 85025; 86850; 86900; 86901; 87070; 87075; 87077; 87186; 87205; 93005; 99213

== ENCOUNTER 2017-03-19 11:25 | Inpatient (IN) | payer MEDICARE, BC ==
[2017-03-19] MEDS ORDERED: DIALYSIS (PERIT 1.5%) 2,000 ML 30 G/2,000 ML BAG INTRAPERIT SCH (13:30)
[2017-03-19 13:59] LABS: Anisocytosis Slight; CH 27.5; CHCM 29.9; HCT 30.8 % (39.0-53.0); HDW 2.79; HGB 9.4 gm/dL (13.0-17.5); Hypochromasia Marked; MCH 28.2 pg (25.0-35.0); MCHC 30.4 g/dL (31.0-37.0); MCV 92.8 fL (80.0-100.0); Mean Platelet Volume 7.6; RBC 3.32 m/uL (4.30-5.90); RDW 16.7 % (11.5-15.5); WBC 7.3 k/uL (3.8-10.6)
[2017-03-19 14:09] LABS: ALT 29 U/L (21-72); AST 19 U/L (17-59); Alkaline Phosphatase 81 U/L (38-126); Anion Gap 9 mmol/L; Blood Urea Nitrogen 37 mg/dL (9-20); Calcium 8.1 mg/dL (8.4-10.2); Carbon Dioxide 22 mmol/L (22-30); Chloride 102 mmol/L (98-107); Glucose 102 mg/dL (74-99); Non-African American GFR(MDRD) 18 (>60 ml/min/1.73 sqM); Potassium 4.8 mmol/L (3.5-5.1); Sodium 133 mmol/L (137-145); Total Bilirubin <0.1 mg/dL (0.2-1.3); Total Protein 4.5 g/dL (6.3-8.2)
[2017-03-19] MEDS ORDERED: ONDANSETRON 4 MG/2 ML VIAL IVP PRN (14:35)
[2017-03-19] MEDS ORDERED: SODIUM CHLORIDE 0.9% 1,000 ML IV SCH (14:45)
--- NOTE | 2017-03-19 14:59 | P.HPIM ---
History of Present Illness H&P Date: 03/19/17 Chief Complaint: Infected right [id number]-pure amputation This is a 61-year-old male with a known past medical history of chronic renal failure with right kidney transplant on peritoneal dialysis. He also has a history of coronary artery disease with previous coronary bypass grafting, atrial fibrillation, DVT of the lower extremity with [place] filter placed, hypertension, hyperlipidemia, diabetes mellitus type 2, peripheral vascular disease, left BKA and a recent right below the knee amputation on 02/26/2017. Patient had been at [facility] for rehabilitation. He went to a routine follow-up with Dr. Dugan. He has some evidence of cellulitis on his stump around the incision site. The incision site there is necrotic changes. Also there is a blister on the bottom of the stump. And again a purplish color around the blister connecting to the incision. There is tender with palpation of the stump. Patient was told by Dr. Dugan to be admitted to the hospital. Patient was a direct admit from Dr. Mosquera's office. He denies any fever, chills, sweats. He's had a couple episodes of vomiting. Denies any chest pain or shortness of breath. Denies any burning with urination. Denies any significant drainage from the stump. Patient has been admitted to the hospital for infection in the stump of his right leg. Antibiotics will be ordered by infectious disease. Infectious disease, that to surgery and nephrology have been consulted. Review of Systems Please refer to HPI otherwise unremarkable Past Medical History Past Medical History: Atrial Fibrillation, Coronary Artery Disease (CAD), Heart Failure, Diabetes Mellitus, Dialysis, Deep Vein Thrombosis (DVT), GERD/Reflux, Hyperlipidemia, Hypertension, Myocardial Infarction ([place]), Osteoarthritis (OA), Pneumonia, Renal Disease, Thyroid Disorder, Vascular Disorder Additional Past Medical History / Comment(s): Pt recently admitted to [facility] on with R foot ulcer with necrosis and had RBKA, pt states to travel writer that since that admit there has been no change to his health hx other than a post op infection. Other hx: TAKES NO CURRENT MEDS FOR THYROID, STATES HAS CURRENT KIDNEY TRANSPLANT THAT IS FAILING-has peritoneal dialysis. 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 Last Myocardial Infarction Date:: 2009 History of Any Multi-Drug Resistant Organisms: Acinetobacter (MDRO) Date of last positivie culture/infection: 02/23/17 MDRO Source:: FOOT Past Surgical History: Adenoidectomy, Bariatric Surgery, Coronary Bypass/CABG, Heart Catheterization, Tonsillectomy Additional Past Surgical History / Comment(s): jamarcus fliter, kidney transplant-X2,CABG-2010 TRIPLE, gastric bypass, RT great toe amputation , [place] CATARACTS, RIGHT carotid endarterectomy, amputation lt BKA,angioplasty to the popliteal artery and posterior left femoral artery performed by Dr. Fowler on , RECENT BX-PT BELIEVES IT WAS OF THE RT TEMPERAL ARTERY. Past Anesthesia/Blood Transfusion Reactions: No Reported Reaction Additional Past Anesthesia/Blood Transfusion Reaction / Comment(s): HX BLOOD TRANSFUSIONS- NO REACTIONS . Smoking Status: Never smoker - Past Family History Father Family Medical History: Diabetes Mellitus, Dialysis Additional Family Medical History / Comment(s): "big heart", bilat BKA Mother Family Medical History: Cancer Additional Family Medical History / Comment(s): colon Medications and Allergies Home Medications Medication Instructions Recorded Confirmed Type Cholecalciferol [Vitamin D3] 5,000 mg PO HS 05/17/14 03/19/17 History Sodium Bicarbonate Tab 650 mg PO BID 05/17/14 03/19/17 History Tacrolimus [Prograf] 1 mg PO BID 12/06/14 03/19/17 History Magnesium Gluconate [Magonate] 500 mg PO DAILY 02/01/15 03/19/17 History Aspirin EC [Ecotrin Low Dose] 81 mg PO HS 02/12/16 03/19/17 History Atorvastatin [Lipitor] 80 mg PO HS 02/12/16 03/19/17 History Calcitriol 0.5 mcg PO DAILY 02/12/16 03/19/17 History Vit C/E/Zn/Coppr/Lutein/Zeaxan 1 cap PO BID 02/12/16 03/19/17 History [Preservision Areds 2 Softgel] INSULIN LISPRO (HumaLOG) [humaLOG] See Protocol SQ ACHS 07/19/16 03/19/[address] [Myfortic] 360 mg PO DAILY 09/15/16 03/19/17 History Ferrous Sulfate [Feosol] 325 mg PO BID #60 tab 12/22/16 03/19/17 Rx Furosemide [Lasix] 20 mg PO BID 01/01/17 03/19/17 History Midodrine HCl [ProAmatine] 5 mg PO DAILY 01/01/17 03/19/17 History Renaplex D Vitamin 1 tab PO DAILY 01/01/17 03/19/17 History Clopidogrel [Plavix] 75 mg PO DAILY #30 tab 01/10/17 03/19/17 Rx Docusate [Colace] 100 mg PO BID cap 03/03/17 03/19/17 Rx Gabapentin [Neurontin] 300 mg PO BID #60 cap 03/03/17 03/19/17 Rx HYDROcodone/APAP 7.5-325MG [[place] 1 tab PO Q4H PRN #40 tab 03/03/17 03/19/17 Rx 7.5-325] Polyethylene Glycol 3350 [Miralax] 17 gm PO DAILY #30 packet 03/03/17 03/19/17 Rx Temazepam [Restoril] 15 mg PO HS #30 03/03/17 03/19/17 Rx Allergies Allergy/AdvReac Type Severity Reaction Status Date / Time codeine AdvReac Severe constipatio Verified 03/19/17 12:57 n Physical Exam Vitals: Intake and Output 03/18/17 03/19/17 03/19/17 22:59 06:59 14:59 Other: Weight 83.2 kg Patient Weight 03/20/17 06:59 Weight 83.2 kg Head normocephalic Neck supple Lungs clear to auscultation bilaterally no wheezing or crackles Heart regular rate and rhythm S1-S2, no rub or gallop Abdomen is soft nontender nondistended positive bowel sounds no hepatosplenomegaly Extremities no edema. Right stump evidence of cellulitis with erythema near the incision site. It is warm and tender to touch. The incision site also has black tissue. There is a blister on the distal aspect of the stump. Neuro alert and orientated to 3 Results CBC & Chem 7: 03/19/17 13:38 03/19/17 13:38 Labs: Abnormal Lab Results - Last 24 Hours (Table) 03/19/17 03/19/17 Range/Units 13:38 13:38 RBC 3.32 L (4.30-5.90) m/uL Hgb 9.4 L (13.0-17.5) gm/dL Hct 30.8 L (39.0-53.0) % MCHC 30.4 L (31.0-37.0) g/dL RDW 16.7 H (11.5-15.5) % Sodium 133 L (137-145) mmol/L BUN 37 H (9-20) mg/dL Creatinine 3.56 H (0.66-1.25) mg/dL Glucose 102 H (74-99) mg/dL Calcium 8.1 L (8.4-10.2) mg/dL Total Bilirubin <0.1 L (0.2-1.3) mg/dL Total Protein 4.5 L (6.3-8.2) g/dL Albumin 2.1 L (3.5-5.0) g/dL Thrombosis Risk Factor Assmnt - Choose All That Apply Other Risk Factors: Yes Each Risk Factor Represents 2 Points: Age 61-74 years Other congenital or acquired thrombophilia - If yes, enter type in comment: No Thrombosis Risk Factor Assessment Total Risk Factor Score: 2 Thrombosis Risk Factor Assessment Level: Low Risk Assessment and Plan Plan: 1. Right stump infection with cellulitis and necrotic skin changes: Patient had recent right below the knee amputation on 02/26/[address] Dugan. Vascular surgery and infectious disease have been consulted. Await antibiotic recommendations per infectious disease. We'll continue with IV fluid hydration. Check blood cultures. 2. Chronic kidney disease stage V with history of right kidney transplant secondary to his diabetes mellitus. He is currently on peritoneal dialysis. Nephrology has been consulted 3. Diabetes mellitus type 2. Order Humalog sliding scale 4. Chronic atrial fibrillation: Coumadin discontinued on previous admissions 5. History of peripheral vascular disease secondary to his diabetes mellitus and had required a left below the knee amputation 6. Gangrene and ulcer on the right foot status post right below the knee and dictation on 02/26/2017 7. Chronic systolic congestive heart failure: No evidence of exacerbation. 8. Anemia of chronic kidney disease with iron deficiency anemia 9. History of coronary artery disease with previous coronary artery bypass grafting GI prophylaxis Protonix and DVT prophylaxis subcu heparin Time with Patient: Greater than 30 (Greater than 50% of the total time spent in counseling and coordination of care.I performed an examination of the patient and discussed their management with the physician Supply Chain Associate. I have reviewed the Physician Supply Chain Associate's notes and agree with the documented findings and plan of care)
[2017-03-19] MEDS ORDERED: IV VANCOMYCIN PER PHARMACY 1 EACH MISC MISCELLANE PRN (15:17)
[2017-03-19] MEDS: PANTOPRAZOLE 40 MG TABLET PO SCH ×2 (16:08→17:53)
[2017-03-19] MEDS ORDERED: VANCOMYCIN 1,500 MG in SODIUM CHLORIDE 0.9% 250 ML IVPB ONE (17:00)
[2017-03-19 17:26] LABS: Glucose,Whole Blood 100 mg/dL (75-99)
[2017-03-19] MEDS ORDERED: INSULIN LISPRO (humaLOG) 300 UNIT/3 ML VIAL SQ SCH (17:30)
[2017-03-19] MEDS: INSULIN LISPRO (humaLOG) 300 UNIT/3 ML VIAL SQ SCH ×2 (17:51→21:44)
[2017-03-19] MEDS: FUROSEMIDE 20 MG TAB PO SCH (17:52)
[2017-03-19] MEDS: DIALYSIS (PERIT 2.5%) 2,000 ML 50 G/2,000 ML BAG INTRAPERIT SCH (17:55)
[2017-03-19 20:52] LABS: Glucose,Whole Blood 173 mg/dL (75-99)
[2017-03-19 21:01] LABS: Hemoglobin A1C 6.5 % (4.2-6.1)
[2017-03-19] MEDS: ATORVASTATIN 80 MG TAB PO SCH (21:42)
[2017-03-19] MEDS: ASPIRIN 81 MG PO SCH (21:42)
[2017-03-19] MEDS: CHOLECALCIFEROL 1,000 UNIT TAB PO SCH (21:42)
[2017-03-19] MEDS: DOCUSATE 100 MG CAP PO SCH (21:43)
[2017-03-19] MEDS: GABAPENTIN 300 MG CAP PO SCH (21:43)
[2017-03-19] MEDS: HEPARIN SODIUM,PORCINE 5,000 UNIT/ML 1 ML VIAL SQ SCH (21:43)
[2017-03-19] MEDS: TACROLIMUS 1 MG CAP PO SCH (21:43)
[2017-03-19] MEDS: SODIUM BICARBONATE TAB 650 MG TAB PO SCH (21:43)
[2017-03-19] MEDS: FERROUS SULFATE 325 MG TAB PO SCH (21:43)
[2017-03-19] MEDS: VIT A,C & E-LUTEIN-MINERALS 1 EACH TAB PO SCH (21:44)
[2017-03-19] MEDS: TEMAZEPAM 15 MG CAP PO SCH (21:44)
[2017-03-19] MEDS: SODIUM CHLORIDE 0.9% 1,000 ML IV SCH (21:45)
[2017-03-20] MEDS: DIALYSIS (PERIT 1.5%) 2,000 ML 30 G/2,000 ML BAG INTRAPERIT SCH ×2 (00:02→23:00)
[2017-03-20] MEDS: HYDROcodone/APAP 7.5-325MG 1 EACH TAB PO PRN ×4 (00:43→23:14)
[2017-03-20] MEDS: DIALYSIS (PERIT 2.5%) 2,000 ML 50 G/2,000 ML BAG INTRAPERIT SCH ×3 (06:13→17:11)
[2017-03-20 07:36] LABS: Glucose,Whole Blood 77 mg/dL (75-99)
[2017-03-20] MEDS: INSULIN LISPRO (humaLOG) 300 UNIT/3 ML VIAL SQ SCH ×4 (07:53→21:41)
[2017-03-20] MEDS: PANTOPRAZOLE 40 MG TABLET PO SCH (08:58)
[2017-03-20] MEDS: CLOPIDOGREL 75 MG TAB PO SCH (08:58)
[2017-03-20] MEDS: FERROUS SULFATE 325 MG TAB PO SCH ×2 (08:58→21:40)
[2017-03-20] MEDS: DOCUSATE 100 MG CAP PO SCH ×2 (08:58→21:39)
[2017-03-20] MEDS: FUROSEMIDE 20 MG TAB PO SCH ×2 (08:59→16:17)
[2017-03-20] MEDS: GABAPENTIN 300 MG CAP PO SCH ×2 (08:59→21:40)
[2017-03-20] MEDS ORDERED: NON-FORMULARY DRUG (Magnesium Gluconate 500 MG) PO SCH (09:00)
[2017-03-20] MEDS ORDERED: [UNRECOGNIZED DRUG - OTHER] PO SCH (09:00)
[2017-03-20] MEDS: MIDODRINE 5 MG TAB PO SCH (09:00)
[2017-03-20] MEDS: POLYETHYLENE GLYCOL 3350 17 GM POWD.PACK PO SCH (09:00)
[2017-03-20] MEDS: HEPARIN SODIUM,PORCINE 5,000 UNIT/ML 1 ML VIAL SQ SCH ×2 (09:00→21:40)
[2017-03-20] MEDS: SODIUM BICARBONATE TAB 650 MG TAB PO SCH ×2 (09:00→21:40)
[2017-03-20] MEDS: MYCOPHENOLATE SODIUM DR 180 MG TABLET.DR PO SCH (09:00)
[2017-03-20] MEDS: TACROLIMUS 1 MG CAP PO SCH ×2 (09:01→21:41)
[2017-03-20] MEDS: VIT A,C & E-LUTEIN-MINERALS 1 EACH TAB PO SCH ×2 (09:01→21:41)
[2017-03-20 09:56] LABS: Anisocytosis Slight; Basophils % (A) 1 %; CH 27.6; CHCM 29.4; Eosinophils % (A) 0 %; HCT 33.3 % (39.0-53.0); HDW 2.81; HGB 9.6 gm/dL (13.0-17.5); Hypochromasia Marked; Luc # (Auto) 0.08; Luc % (Auto) 2; Lymphocytes # (A) 0.8 k/uL (1.0-4.8); Lymphocytes % (A) 15 %; MCH 27.4 pg (25.0-35.0); MCV 94.6 fL (80.0-100.0); Mean Platelet Volume 7.8; Monocytes # (A) 0.4 k/uL (0-1.0); Monocytes % (A) 7 %; Neutrophils # (A) 3.8 k/uL (1.3-7.7); Neutrophils % (A) 74 %; RBC 3.52 m/uL (4.30-5.90); WBC 5.2 k/uL (3.8-10.6); WBC (Perox) 5.03
[2017-03-20 10:31] LABS: Calcium 8.2 mg/dL (8.4-10.2); Potassium 5.3 mmol/L (3.5-5.1); Total Bilirubin 0.2 mg/dL (0.2-1.3); Total Protein 4.5 g/dL (6.3-8.2)
--- NOTE | 2017-03-20 10:40 | P.PN ---
Subjective Progress Note Date: 03/20/17 This is a 61-year-old male with a known past medical history of chronic renal failure with right kidney transplant on peritoneal dialysis. He also has a history of coronary artery disease with previous coronary bypass grafting, atrial fibrillation, DVT of the lower extremity with [place] filter placed, hypertension, hyperlipidemia, diabetes mellitus type 2, peripheral vascular disease, left BKA and a recent right below the knee amputation on 02/26/2017. Patient had been at [facility] for rehabilitation. He went to a routine follow-up with Dr. Dugan. He has some evidence of cellulitis on his stump around the incision site. The incision site there is necrotic changes. Also there is a blister on the bottom of the stump. And again a purplish color around the blister connecting to the incision. There is tender with palpation of the stump. Patient was told by Dr. Dugan to be admitted to the hospital. Patient was a direct admit from Dr. Mosquera's office. He denies any fever, chills, sweats. He's had a couple episodes of vomiting. Denies any chest pain or shortness of breath. Denies any burning with urination. Denies any significant drainage from the stump. Patient has been admitted to the hospital for infection in the stump of his right leg. Antibiotics will be ordered by infectious disease. Infectious disease, vascular surgery and nephrology have been consulted. 03/20/2017 patient still having pain in the right stump. Still some redness noted. Patient's evaluated by infectious disease. They have him on Fortaz and vancomycin. Patient is lightly wheezy today but denies any shortness of breath or chest pain. He is complaining that his dialysis catheter might be obstructed. He was unable to place all the fluid in and is having some difficulty getting fluid out. Objective - Vital Signs Vital signs: Vital Signs Temp 98.4 F 03/20/17 07:00 Pulse 68 03/20/17 08:00 Resp 20 03/20/17 08:00 BP 115/42 03/20/17 07:00 Pulse Ox 98 03/20/17 07:00 Intake & Output 03/19/17 03/20/17 03/20/17 18:59 06:59 18:59 Intake Total 240 1200 240 Output Total 1100 375 Balance 240 100 -135 Weight 83.2 kg Intake: Oral 240 1200 240 Output: Urine 1100 375 Other: Voiding Method Toilet Toilet Urinal Urinal # Voids 0 # Bowel Movements 0 1 - Exam Head normocephalic Neck supple Lungs few scattered wheezes Heart regular rate and rhythm S1-S2, no rub or gallop Abdomen is soft nontender nondistended positive bowel sounds no hepatosplenomegaly Extremities Right stump evidence of cellulitis with erythema near the incision site. It is warm and tender to touch. The incision site also has black tissue. There is a blister on the distal aspect of the stump. Neuro alert and orientated to 3 - Labs CBC & Chem 7: 03/20/17 09:16 03/19/17 13:38 Labs: Abnormal Lab Results - Last 24 Hours (Table) 03/19/17 03/19/17 03/19/17 Range/Units 13:38 13:38 13:38 RBC 3.32 L (4.30-5.90) m/uL Hgb 9.4 L (13.0-17.5) gm/dL Hct 30.8 L (39.0-53.0) % MCHC 30.4 L (31.0-37.0) g/dL RDW 16.7 H (11.5-15.5) % Lymphocytes # (1.0-4.8) k/uL Sodium 133 L (137-145) mmol/L BUN 37 H (9-20) mg/dL Creatinine 3.56 H (0.66-1.25) mg/dL Glucose 102 H (74-99) mg/dL POC Glucose (mg/dL) (75-99) mg/dL Hemoglobin A1c 6.5 H (4.2-6.1) % Calcium 8.1 L (8.4-10.2) mg/dL Total Bilirubin <0.1 L (0.2-1.3) mg/dL Total Protein 4.5 L (6.3-8.2) g/dL Albumin 2.1 L (3.5-5.0) g/dL 03/19/17 03/19/17 03/20/17 Range/Units 17:10 20:38 09:16 RBC 3.52 L (4.30-5.90) m/uL Hgb 9.6 L (13.0-17.5) gm/dL Hct 33.3 L (39.0-53.0) % MCHC 29.0 L (31.0-37.0) g/dL RDW 17.0 H (11.5-15.5) % Lymphocytes # 0.8 L (1.0-4.8) k/uL Sodium (137-145) mmol/L BUN (9-20) mg/dL Creatinine (0.66-1.25) mg/dL Glucose (74-99) mg/dL POC Glucose (mg/dL) 100 H 173 H (75-99) mg/dL Hemoglobin A1c (4.2-6.1) % Calcium (8.4-10.2) mg/dL Total Bilirubin (0.2-1.3) mg/dL Total Protein (6.3-8.2) g/dL Albumin (3.5-5.0) g/dL Assessment and Plan Plan: 1. Right stump infection with cellulitis and necrotic skin changes: Patient had recent right below the knee amputation on 02/26/[address] Dugan. Vascular surgery and infectious disease have been consulted. Evaluated by infectious disease. Started on Fortaz and vancomycin. Await blood culture. 2. Chronic kidney disease stage V with history of right kidney transplant secondary to his diabetes mellitus. He is currently on peritoneal dialysis. Nephrology has been consulted reviewed concerns of possible dialysis catheter obstruction. Check abdominal x-ray 3. Diabetes mellitus type 2. Order Humalog sliding scale 4. Chronic atrial fibrillation: Coumadin discontinued on previous admissions 5. History of peripheral vascular disease secondary to his diabetes mellitus and had required a left below the knee amputation 6. Gangrene and ulcer on the right foot status post right below the knee and dictation on 02/26/2017 7. Chronic systolic congestive heart failure: No evidence of exacerbation. 8. Anemia of chronic kidney disease with iron deficiency anemia 9. History of coronary artery disease with previous coronary artery bypass grafting 10. wheezing: Check chest x-ray. Fluids are at KVO GI prophylaxis Protonix and DVT prophylaxis subcu heparin I performed an examination of the patient and discussed their management with the physician Steam Finisher. I have reviewed the Physician Steam Finisher's notes and agree with the documented findings and plan of care
[2017-03-20 12:22] LABS: Glucose,Whole Blood 209 mg/dL (75-99)
[2017-03-20 12:40] LABS: Phosphorous 5.5 mg/dL (2.5-4.5)
[2017-03-20] MEDS: DARBEPOETIN ALFA 40 MCG/0.4 ML SYRINGE SQ SCH (12:59)
[2017-03-20] MEDS: CALCITRIOL 0.25 MCG CAP PO SCH (13:01)
--- NOTE | 2017-03-20 13:04 | P.NPCON ---
History of Present Illness - Reason for Consult end stage renal disease - History of Present Illness Reason for consultation: End-stage renal disease History of present illness: Patient is a 61-year-old male seen in renal consultation for end-stage renal disease. He is maintained on peritoneal dialysis. Patient underwent a right [id number]-[id number]-dieq amputation on 02/26/2017 and was seen by vascular surgery in the office yesterday. He was noted to have cellulitis and blistering at the stump site and was advised to go to the hospital. He is currently maintained on broad -spectrum antibiotics and vascular surgery as well as infectious disease are following. He's tolerating PD well. He wasn't able to complete the entire febrile during his last this change as he was laying in bed. However he is now sitting up in chair and is tolerating the procedure better. Fluid is clear. No abdominal pain. No fever or chills. No obvious drainage from the stump site as well. Oral intake is good. Denies chest pain or shortness of breath. No vomiting or diarrhea. Vital signs are stable. General: The patient appeared well nourished and normally developed. HEENT: Head exam is unremarkable. Neck is without jugular venous distension. LUNGS: Lungs are clear to auscultation and percussion. Breath sounds decreased. HEART: Rate and Rhythm are regular. First and second heart sounds normal. No murmurs, rubs or gallops. ABDOMEN: Abdominal exam reveals normal bowel sounds. Non-tender and non- distended. No evidence of peritonitis. EXTREMITITES: No edema. Bilateral BKA noted. Wound site wrapped with no obvious drainage. Past Medical History Past Medical History: Atrial Fibrillation, Coronary Artery Disease (CAD), Heart Failure, Diabetes Mellitus, Dialysis, Deep Vein Thrombosis (DVT), GERD/Reflux, Hyperlipidemia, Hypertension, Myocardial Infarction ([place]), Osteoarthritis (OA), Pneumonia, Renal Disease, Thyroid Disorder, Vascular Disorder Additional Past Medical History / Comment(s): Pt recently admitted to [facility] on with R foot ulcer with necrosis and had RBKA, pt states to health underwriter that since that admit there has been no change to his health hx other than a post op infection. Other hx: TAKES NO CURRENT MEDS FOR THYROID, STATES HAS CURRENT KIDNEY TRANSPLANT THAT IS FAILING-has peritoneal dialysis. 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 Last Myocardial Infarction Date:: 2009 History of Any Multi-Drug Resistant Organisms: Acinetobacter (MDRO) Date of last positivie culture/infection: 02/23/17 MDRO Source:: FOOT Past Surgical History: Adenoidectomy, Bariatric Surgery, Coronary Bypass/CABG, Heart Catheterization, Tonsillectomy Additional Past Surgical History / Comment(s): jamarcus fliter, kidney transplant-X2,CABG-2010 TRIPLE, gastric bypass, RT great toe amputation , [place] CATARACTS, RIGHT carotid endarterectomy, amputation lt BKA,angioplasty to the popliteal artery and posterior left femoral artery performed by Dr. Fowler on , RECENT BX-PT BELIEVES IT WAS OF THE RT TEMPERAL ARTERY. Past Anesthesia/Blood Transfusion Reactions: No Reported Reaction Additional Past Anesthesia/Blood Transfusion Reaction / Comment(s): HX BLOOD TRANSFUSIONS- NO REACTIONS . Smoking Status: Never smoker - Past Family History Father Family Medical History: Diabetes Mellitus, Dialysis Additional Family Medical History / Comment(s): "big heart", bilat BKA Mother Family Medical History: Cancer Additional Family Medical History / Comment(s): colon Medications and Allergies Home Medications Medication Instructions Recorded Confirmed Type Cholecalciferol [Vitamin D3] 5,000 mg PO HS 05/17/14 03/19/17 History Sodium Bicarbonate Tab 650 mg PO BID 05/17/14 03/19/17 History Tacrolimus [Prograf] 1 mg PO BID 12/06/14 03/19/17 History Magnesium Gluconate [Magonate] 500 mg PO DAILY 02/01/15 03/19/17 History Aspirin EC [Ecotrin Low Dose] 81 mg PO HS 02/12/16 03/19/17 History Atorvastatin [Lipitor] 80 mg PO HS 02/12/16 03/19/17 History Calcitriol 0.5 mcg PO DAILY 02/12/16 03/19/17 History Vit C/E/Zn/Coppr/Lutein/Zeaxan 1 cap PO BID 02/12/16 03/19/17 History [Preservision Areds 2 Softgel] INSULIN LISPRO (HumaLOG) [humaLOG] See Protocol SQ ACHS 07/19/16 03/19/[address] [Myfortic] 360 mg PO DAILY 09/15/16 03/19/17 History Ferrous Sulfate [Feosol] 325 mg PO BID #60 tab 12/22/16 03/19/17 Rx Furosemide [Lasix] 20 mg PO BID 01/01/17 03/19/17 History Midodrine HCl [ProAmatine] 5 mg PO DAILY 01/01/17 03/19/17 History Renaplex D Vitamin 1 tab PO DAILY 01/01/17 03/19/17 History Clopidogrel [Plavix] 75 mg PO DAILY #30 tab 01/10/17 03/19/17 Rx Docusate [Colace] 100 mg PO BID cap 03/03/17 03/19/17 Rx Gabapentin [Neurontin] 300 mg PO BID #60 cap 03/03/17 03/19/17 Rx HYDROcodone/APAP 7.5-325MG [[place] 1 tab PO Q4H PRN #40 tab 03/03/17 03/19/17 Rx 7.5-325] Polyethylene Glycol 3350 [Miralax] 17 gm PO DAILY #30 packet 03/03/17 03/19/17 Rx Temazepam [Restoril] 15 mg PO HS #30 03/03/17 03/19/17 Rx Allergies Allergy/AdvReac Type Severity Reaction Status Date / Time codeine AdvReac Severe constipatio Verified 03/19/17 12:57 n Physical Exam Vitals: Vital Signs Temp Pulse Pulse Resp BP BP Pulse Ox 03/20/17 08:00 68 20 03/20/17 07:00 98.4 F 68 20 115/42 98 03/20/17 06:13 98.0 F 70 18 140/60 03/20/17 00:02 98.3 F 75 18 150/65 94 L 03/19/17 23:06 86 03/19/17 23:00 98.3 F 75 18 150/65 96 03/19/17 15:00 97.8 F 86 18 117/44 98 03/19/17 13:00 97.0 F L 76 18 144/61 100 Intake and Output 03/19/17 03/20/17 03/20/17 22:59 06:59 14:59 Intake Total 840 600 240 Output Total 500 600 375 Balance 340 0 -135 Intake: Oral 840 600 240 Output: Urine 500 600 375 Other: Voiding Method Toilet Toilet Urinal Urinal # Bowel Movements 1 Results - Lab Results Most recent lab results Calcium 8.2 mg/dL (8.4-10.2) L 03/20/17 09:16 Phosphorus 5.5 mg/dL (2.5-4.5) H 03/20/17 09:16 03/20/17 09:16 03/20/17 09:16 Assessment and Plan Plan: Assessment: #1. End-stage renal disease maintained on peritoneal dialysis. #2. Status post right [id number]-[id number] amputation with cellulitis of the stump site. #3. History of donor renal allograft from [facility] in 2010. Now being weaned off the metal suppression. #4. History of left below the knee amputation. #5. Diabetes mellitus. #6. Anemia of chronic kidney disease. Rule out iron deficiency. Plan: Continue with 2.5 L exchanges every 6 hours for 2.5% dextrose solution. Check iron studies. Start Aranesp. Maintain oral sodium bicarbonate supplementation. Vascular surgery following. Antibiotics per infectious disease recommendations. Continue with Myfortic and Prograf at current dose. Thank you for the consultation. I will continue to follow the patient with you during his hospital stay.
--- NOTE | 2017-03-20 14:05 | XR ---
EXAMINATION TYPE: XR chest 2V DATE OF EXAM: 03/20/2017 COMPARISON: Prior chest x-ray 03/02/2017 HISTORY: Wheezing TECHNIQUE: Frontal and lateral views of the chest are obtained. FINDINGS: There is no pleural effusion or pneumothorax seen. The cardiac silhouette size is stable. Strand-like densities at the left lung base likely reflect atelectasis or scarring. Stent is presen t within the soft tissues of the left upper extremity, there vascular calcifications present. Patient is post median sternotomy. There are overlying cardiac leads. The osseous structures are intact. IMPRESSION: Probable atelectasis or scarring.
--- NOTE | 2017-03-20 14:07 | XR ---
2 view abdomen HISTORY: Dialysis catheter obstruction, abnormal abdomen film Correlation to prior exam 12/21/2016. Lung bases are clear. This is post median sternotomy. There are extensive vascular calcifications. Th ere are overlying cardiac leads. Dialysis catheter is present in the right upper quadrant. Inferior v shantel cava filter is present and tilted. Patient is rotated. No evident pneumoperitoneum or bowel obstr uction. IMPRESSION: Dialysis catheter is coiled in the right upper quadrant. Tilting of the inferior vena cav a filter is again noted.
[2017-03-20 17:21] LABS: Glucose,Whole Blood 114 mg/dL (75-99)
--- NOTE | 2017-03-20 18:48 | P.CONS ---
History of Present Illness - Reason for Consult Consult date: 03/20/17 - Chief Complaint Swelling and pain at the right below the knee amputation site - History of Present Illness Pleasant 61-year-old male who is well-known to me from his recent hospitalization. His a long-standing history of diabetes mellitus type 2. Prior history of superobesity. Complications include peripheral vascular disease, end-stage renal disease on hemodialysis after renal transplantation as failed. He was recently hospitalized for was having increasing pain to the right foot. These having increasing dry gangrenous changes to the foot because he was taken the operating room for the right below-knee amputation. He's been cared for in the outpatient setting. He was seen by the vascular surgeon in the office and there was some concern as to the limb and consequently was admitted to hospital for antimicrobial therapy and intervention. At this time other than pain at the site he is denying other acute difficulties. He does have fatigue and malaise. He denies high-grade fevers chills rigors or sweats. Review of Systems Pleasant 61-year-old male comfortable at this time HEENT:Denies headache or acute visual change. Denies sinus or mouth discomforts. Denies neck stiffness or pain. Denies significant oral cavity pain. Denies difficulty on swallowing. Lungs: Denies significant shortness of breath, cough, sputum production, or hemoptysis. Cardiovascular: Denies significant shortness of breath, chest pain, chest wall pain, orthopnea, dyspnea on exertion, syncope Gastrointestinal:Denies nausea, vomiting, diarrhea, constipation, hematemesis, melena, hematochezia. No no significant change of bowel habit noticed. Musculoskeletal: Has chronic back pain, is some discomfort to the amputation site right limb as per the HPI Skin: Per the HPI Neuro: Denies headache or visual change. Denies any new onset weakness or difficulty with ambulation. Denies falls or seizures. Psychiatric:Denies anxiety or depression. Endocrine: Has significant fatigue, is noted to had significant weight gain to the summer with heart failure is now better. He had a gastric bypass and has had a 200 pound weight loss Past Medical History Past Medical History: Atrial Fibrillation, Coronary Artery Disease (CAD), Heart Failure, Diabetes Mellitus, Dialysis, Deep Vein Thrombosis (DVT), GERD/Reflux, Hyperlipidemia, Hypertension, Myocardial Infarction ([place]), Osteoarthritis (OA), Pneumonia, Renal Disease, Thyroid Disorder, Vascular Disorder Additional Past Medical History / Comment(s): Pt recently admitted to [facility] on with R foot ulcer with necrosis and had RBKA, pt states to group underwriter that since that admit there has been no change to his health hx other than a post op infection. Other hx: TAKES NO CURRENT MEDS FOR THYROID, STATES HAS CURRENT KIDNEY TRANSPLANT THAT IS FAILING-has peritoneal dialysis. 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 Last Myocardial Infarction Date:: 2009 History of Any Multi-Drug Resistant Organisms: Acinetobacter (MDRO) Year Discovered:: 02/23/17 MDRO Source:: FOOT Past Surgical History: Adenoidectomy, Bariatric Surgery, Coronary Bypass/CABG, Heart Catheterization, Tonsillectomy Additional Past Surgical History / Comment(s): jamarcus fliter, kidney transplant-X2,CABG-2010 TRIPLE, gastric bypass, RT great toe amputation , [facility], RIGHT carotid endarterectomy, amputation lt BKA,angioplasty to the popliteal artery and posterior left femoral artery performed by Dr. Fowler on , RECENT BX-PT BELIEVES IT WAS OF THE RT TEMPERAL ARTERY. Past Anesthesia/Blood Transfusion Reactions: No Reported Reaction Additional Past Anesthesia/Blood Transfusion Reaction / Comm: HX BLOOD TRANSFUSIONS- NO REACTIONS . Additional Psychological History / Comment(s): Single. Lives in a family home with his daughter and her 2 children. [employer] nonsmoker. No significant alcohol use. Medically disabled. Pet dog. No experience. Smoking Status: Never smoker Smoking Status: Never smoker - Past Family History Father Family Medical History: Diabetes Mellitus, Dialysis Additional Family Medical History / Comment(s): "big heart", bilat BKA Mother Family Medical History: Cancer Additional Family Medical History / Comment(s): colon Medications and Allergies Home Medications and Allergies Comment(s): Current Medications Hydrocodone Bitart/Acetaminophen (Dougherty 7.5-325) 1 each PO Q4H PRN PRN Reason: Pain Last Admin: 03/20/17 17:02 Dose: 1 each Aspirin (Aspirin) 81 mg PO HS [facility] Last Admin: 03/19/17 21:42 Dose: 81 mg Atorvastatin Calcium (Lipitor) 80 mg PO HS [facility] Last Admin: 03/19/17 21:42 Dose: 80 mg Calcitriol (Rocaltrol) 0.5 mcg PO 1200 [facility] Last Admin: 03/20/17 13:01 Dose: 0.5 mcg Cholecalciferol (Vitamin D3) 5,000 unit PO HS [facility] Last Admin: 03/19/17 21:42 Dose: 5,000 unit Clopidogrel Bisulfate (Plavix) 75 mg PO DAILY [facility] Last Admin: 03/20/17 08:58 Dose: 75 mg Darbepoetin Tenzin (Aranesp) 40 mcg SQ Q7D [facility] Last Admin: 03/20/17 12:59 Dose: 40 mcg Docusate Sodium (Colace) 100 mg PO BID [facility] Last Admin: 03/20/17 08:58 Dose: 100 mg Ferrous Sulfate (Feosol) 325 mg PO BID [facility] Last Admin: 03/20/17 08:58 Dose: Not Given Furosemide (Lasix) 20 mg PO BID@0900,1600 [facility] Last Admin: 03/20/17 16:17 Dose: 20 mg Gabapentin (Neurontin) 300 mg PO BID [facility] Last Admin: 03/20/17 08:59 Dose: 300 mg Heparin Sodium (Porcine) (Heparin) 5,000 unit SQ Q12HR [facility] Last Admin: 03/20/17 09:00 Dose: 5,000 unit Peritoneal Dialysis Solution (Delflex With 1.5% Dextrose (2,000 Ml)) 30 g in 2, 000 mls @ 0 mls/hr INTRAPERIT 0000 [facility]; As Directed PRN Reason: Protocol Last Admin: 03/20/17 00:02 Dose: 2,000 mls/hr Peritoneal Dialysis Solution (Delflex With 2.5% Dextrose (2,000 Ml)) 50 g in 2, 000 mls @ 0 mls/hr INTRAPERIT 0600,1200,1800 [facility]; As Directed PRN Reason: Protocol Last Admin: 03/20/17 17:11 Dose: 2,000 mls/hr Ceftazidime 0.5 gm/ Sodium (Chloride) 50 mls @ 100 mls/hr IVPB Q24H [facility] Last Admin: 03/20/17 14:53 Dose: 100 mls/hr Vancomycin HCl 1,500 mg/ (Sodium Chloride) 250 mls @ 125 mls/hr IVPB ONCE ONE Stop: 03/21/17 08:59 Sodium Chloride (Saline 0.9%) 1,000 mls @ 20 mls/hr IV .Q24H [facility] Last Admin: 03/19/17 21:45 Dose: 20 mls/hr Insulin Human Lispro (Humalog) 0 unit SQ ACHS [facility] PRN Reason: Protocol Last Admin: 03/20/17 17:25 Dose: Not Given Midodrine (Proamatine) 5 mg PO DAILY [facility] Last Admin: 03/20/17 09:00 Dose: 5 mg Miscellaneous Information (Pharmacy To Dose Iv Vancomycin) 1 each MISCELLANE DIRECTED PRN PRN Reason: Per Protocol Multivitamins/Minerals (Ivite) 1 each PO BID [facility] Last Admin: 03/20/17 09:01 Dose: 1 each Mycophenolate Sodium (Myfortic) 360 mg PO DAILY [facility] Last Admin: 03/20/17 09:00 Dose: 360 mg Ondansetron HCl (Zofran) 4 mg IVP Q6HR PRN PRN Reason: Vomiting Pantoprazole Sodium (Protonix) 40 mg PO AC-BRKFST [facility] Last Admin: 03/20/17 08:58 Dose: 40 mg Polyethylene Glycol (Miralax) 17 gm PO DAILY [facility] Last Admin: 03/20/17 09:00 Dose: 17 gm Sodium Bicarbonate (Sodium Bicarbonate Tab) 650 mg PO BID [facility] Last Admin: 03/20/17 09:00 Dose: 650 mg Tacrolimus (Prograf) 1 mg PO BID [facility] Last Admin: 03/20/17 09:01 Dose: 1 mg Temazepam (Restoril) 15 mg PO [facility] Last Admin: 03/19/17 21:44 Dose: 15 mg Home Medications Medication Instructions Recorded Confirmed Type Cholecalciferol [Vitamin D3] 5,000 mg PO 05/17/14 03/19/17 History Sodium Bicarbonate Tab 650 mg PO BID 05/17/14 03/19/17 History Tacrolimus [Prograf] 1 mg PO BID 12/06/14 03/19/17 History Magnesium Gluconate [Magonate] 500 mg PO DAILY 02/01/15 03/19/17 History Aspirin EC [Ecotrin Low Dose] 81 mg PO HS 02/12/16 03/19/17 History Atorvastatin [Lipitor] 80 mg PO HS 02/12/16 03/19/17 History Calcitriol 0.5 mcg PO DAILY 02/12/16 03/19/17 History Vit C/E/Zn/Coppr/Lutein/Zeaxan 1 cap PO BID 02/12/16 03/19/17 History [Preservision Areds 2 Softgel] INSULIN LISPRO (HumaLOG) [humaLOG] See Protocol SQ ACHS 07/19/16 03/19/[address] [Myfortic] 360 mg PO DAILY 09/15/16 03/19/17 History Ferrous Sulfate [Feosol] 325 mg PO BID #60 tab 12/22/16 03/19/17 Rx Furosemide [Lasix] 20 mg PO BID 01/01/17 03/19/17 History Midodrine HCl [ProAmatine] 5 mg PO DAILY 01/01/17 03/19/17 History Renaplex D Vitamin 1 tab PO DAILY 01/01/17 03/19/17 History Clopidogrel [Plavix] 75 mg PO DAILY #30 tab 01/10/17 03/19/17 Rx Docusate [Colace] 100 mg PO BID cap 03/03/17 03/19/17 Rx Gabapentin [Neurontin] 300 mg PO BID #60 cap 03/03/17 03/19/17 Rx HYDROcodone/APAP 7.5-325MG [Dougherty 1 tab PO Q4H PRN #40 tab 03/03/17 03/19/17 Rx 7.5-325] Polyethylene Glycol 3350 [Miralax] 17 gm PO DAILY #30 packet 03/03/17 03/19/17 Rx Temazepam [Restoril] 15 mg PO HS #30 03/03/17 03/19/17 Rx Allergies Allergy/AdvReac Type Severity Reaction Status Date / Time codeine AdvReac Severe constipatio Verified 03/19/17 12:57 n Physical Exam Vitals: Vital Signs Temp Pulse Pulse Resp BP BP Pulse Ox 03/20/17 15:25 68 20 03/20/17 15:00 98.1 F 80 20 145/35 97 03/20/17 08:00 68 20 03/20/17 07:00 98.4 F 68 20 115/42 98 03/20/17 06:13 98.0 F 70 18 140/60 03/20/17 00:02 98.3 F 75 18 150/65 94 L 03/19/17 23:06 86 03/19/17 23:00 98.3 F 75 18 150/65 96 Intake and Output 03/20/17 03/20/17 03/20/17 06:59 14:59 22:59 Intake Total 600 640 Output Total 600 375 Balance 0 265 Intake: IV 160 Sodium Chloride 0.9% 1, 160 000 ml @ 20 mls/hr IV . Q24H [facility] Rx#:[id number] Oral 600 480 Output: Urine 600 375 Other: Voiding Method Toilet Toilet Toilet Urinal Urinal Urinal # Bowel Movements 1 Pleasant 61-year-old male presents to Hospital with significant change to his right foot. HEENT: Anicteric conjunctiva are pink and moist nasal mucosa grossly intact without significant lesions, there is no thrush. Neck: The neck is supple without significant lymphadenopathy or thyromegaly. Lungs: Good bilateral air entry without significant crackles or wheezing. There is no significant bronchial sounds. There is no egophony or dullness. Heart: Irregular with an audible S1 and S2. No S3 soft S4, 2/6 systolic murmur left sternal border is holosystolic. Abdomen: Positive bowel sounds soft and nontender without palpable masses or organomegaly. There was no guarding or rebound. Extremities: The prior shunt to the left arm is only minimal thrill and apparently is not functional for hemodialysis. The left lower extremity below the knee amputation residual limb is in good order. There is no erythema or crepitance or fluctuance. He wears a medical administrative specialist and has no edema or lesions. The right lower extremity feels evidence of the recent below the knee amputation. The flap appears to be in good order except on his distal aspect there is evidence of some blistering. There is no evidence of any meli necrosis in this area. There is some dried blood onto the anterior aspect of the flap. It however is not fluctuant and there is no severe in drainage over the flap edges. It is somewhat tender but not severely so. Mood is poor we however do arrange for him to get a new room which hopefully will help Neuro: Awake alert oriented to person place and time. Results CBC & Chem 7: 03/20/17 09:16 03/20/17 09:16 Labs: Abnormal Lab Results - Last 24 Hours (Table) 03/19/17 03/19/17 03/20/17 Range/Units 13:38 20:38 09:16 RBC 3.52 L (4.30-5.90) m/uL Hgb 9.6 L (13.0-17.5) gm/dL Hct 33.3 L (39.0-53.0) % MCHC 29.0 L (31.0-37.0) g/dL RDW 17.0 H (11.5-15.5) % Lymphocytes # 0.8 L (1.0-4.8) k/uL Sodium (137-145) mmol/L Potassium (3.5-5.1) mmol/L Carbon Dioxide (22-30) mmol/L BUN (9-20) mg/dL Creatinine (0.66-1.25) mg/dL Glucose (74-99) mg/dL POC Glucose (mg/dL) 173 H (75-99) mg/dL Hemoglobin A1c 6.5 H (4.2-6.1) % Calcium (8.4-10.2) mg/dL Phosphorus (2.5-4.5) mg/dL Iron (49-181) ug/dL Total Protein (6.3-8.2) g/dL Albumin (3.5-5.0) g/dL 03/20/17 03/20/17 03/20/17 Range/Units 09:16 09:16 11:50 RBC (4.30-5.90) m/uL Hgb (13.0-17.5) gm/dL Hct (39.0-53.0) % MCHC (31.0-37.0) g/dL RDW (11.5-15.5) % Lymphocytes # (1.0-4.8) k/uL Sodium 135 L (137-145) mmol/L Potassium 5.3 H (3.5-5.1) mmol/L Carbon Dioxide 19 L (22-30) mmol/L BUN 37 H (9-20) mg/dL Creatinine 3.82 H (0.66-1.25) mg/dL Glucose 144 H (74-99) mg/dL POC Glucose (mg/dL) 209 H (75-99) mg/dL Hemoglobin A1c (4.2-6.1) % Calcium 8.2 L (8.4-10.2) mg/dL Phosphorus 5.5 H (2.5-4.5) mg/dL Iron 40 L (49-181) ug/dL Total Protein 4.5 L (6.3-8.2) g/dL Albumin 2.1 L (3.5-5.0) g/dL 03/20/17 Range/Units 17:07 RBC (4.30-5.90) m/uL Hgb (13.0-17.5) gm/dL Hct (39.0-53.0) % MCHC (31.0-37.0) g/dL RDW (11.5-15.5) % Lymphocytes # (1.0-4.8) k/uL Sodium (137-145) mmol/L Potassium (3.5-5.1) mmol/L Carbon Dioxide (22-30) mmol/L BUN (9-20) mg/dL Creatinine (0.66-1.25) mg/dL Glucose (74-99) mg/dL POC Glucose (mg/dL) 114 H (75-99) mg/dL Hemoglobin A1c (4.2-6.1) % Calcium (8.4-10.2) mg/dL Phosphorus (2.5-4.5) mg/dL Iron (49-181) ug/dL Total Protein (6.3-8.2) g/dL Albumin (3.5-5.0) g/dL Microbiology - Last 24 Hours (Table) 03/19/17 13:38 Blood Culture - Preliminary Blood No Growth after 24 hours Laboratory Results WBC 5.2 k/uL (3.8-10.6) 03/20/17 09:16 RBC 3.52 m/uL (4.30-5.90) L 03/20/17 09:16 Hgb 9.6 gm/dL (13.0-17.5) L 03/20/17 09:16 Hct 33.3 % (39.0-53.0) L 03/20/17 09:16 MCV 94.6 fL (80.0-100.0) 03/20/17 09:16 MCH 27.4 pg (25.0-35.0) 03/20/17 09:16 MCHC 29.0 g/dL (31.0-37.0) L 03/20/17 09:16 RDW 17.0 % (11.5-15.5) H 03/20/17 09:16 Plt Count 429 k/uL (150-450) 03/20/17 09:16 Neutrophils % 74 % 03/20/17 09:16 Lymphocytes % 15 % 03/20/17 09:16 Monocytes % 7 % 03/20/17 09:16 Eosinophils % 0 % 03/20/17 09:16 Basophils % 1 % 03/20/17 09:16 Neutrophils # 3.8 k/uL (1.3-7.7) 03/20/17 09:16 Lymphocytes # 0.8 k/uL (1.0-4.8) L 03/20/17 09:16 Monocytes # 0.4 k/uL (0-1.0) 03/20/17 09:16 Eosinophils # 0.0 k/uL (0-0.7) 03/20/17 09:16 Basophils # 0.0 k/uL (0-0.2) 03/20/17 09:16 Hypochromasia Marked 03/20/17 09:16 Anisocytosis Slight 03/20/17 09:16 Sodium 135 mmol/L (137-145) L 03/20/17 09:16 Potassium 5.3 mmol/L (3.5-5.1) H 03/20/17 09:16 Chloride 105 mmol/L (98-107) 03/20/17 09:16 Carbon Dioxide 19 mmol/L (22-30) L 03/20/17 09:16 Anion Gap 11 mmol/L 03/20/17 09:16 BUN 37 mg/dL (9-20) H 03/20/17 09:16 Creatinine 3.82 mg/dL (0.66-1.25) H 03/20/17 09:16 Est GFR (MDRD) Af Amer 20 (>60 ml/min/1.73 sqM) 03/20/17 09:16 Est GFR (MDRD) Non-Af 16 (>60 ml/min/1.73 sqM) 03/20/17 09:16 Glucose 144 mg/dL (74-99) H 03/20/17 09:16 POC Glucose (mg/dL) 114 mg/dL (75-99) H 03/20/17 17:07 POC Glu Hydraulic Rockbreaker Operator ID Paty Rivera 03/20/17 17:[address] Glu mg/dL 140 mg/dL 03/19/17 13:38 Hemoglobin A1c 6.5 % (4.2-6.1) H 03/19/17 13:38 Calcium 8.2 mg/dL (8.4-10.2) L 03/20/17 09:16 Phosphorus 5.5 mg/dL (2.5-4.5) H 03/20/17 09:16 Iron 40 ug/dL (49-181) L 03/20/17 09:16 Total Bilirubin 0.2 mg/dL (0.2-1.3) 03/20/17 09:16 AST 21 U/L (17-59) 03/20/17 09:16 ALT 27 U/L (21-72) 03/20/17 09:16 Alkaline Phosphatase 82 U/L (38-126) 03/20/17 09:16 Total Protein 4.5 g/dL (6.3-8.2) L 03/20/17 09:16 Albumin 2.1 g/dL (3.5-5.0) L 03/20/17 09:16 Microbiology 03/19/17 13:38 Blood Blood Culture - Preliminary No Growth after 24 hours Assessment and Plan (1) Diabetes mellitus type 2, controlled, with complications Status: Acute (2) Cellulitis of leg, right Narrative/Plan: Pleasant 61-year-old male presents to Hospital from the extended care facility after being seen by his vascular surgeon with concerns to the residual limb of the right side. He underwent a recent [id number] amputation and there was some concern to blister that formed on the most distal aspect of the stump. Consequently was admitted to hospital ID pressure was requested. At this time intravenous antimicrobial therapy is initiated with ceftazidime and vancomycin based on prior cultures. Cultures are in process. If the patient has any worsening of the status he will then likely be a candidate for urgent hyperbaric oxygen therapy. For now though would treat underlying infection. Pain control appears to be adequate. As noted we'll try to make him more comfortable he's been placed into a private room with a bathroom he can access with his wheelchair. Status: Acute
[2017-03-20 20:57] LABS: Glucose,Whole Blood 186 mg/dL (75-99)
[2017-03-20] MEDS: ASPIRIN 81 MG PO SCH (21:37)
[2017-03-20] MEDS: ATORVASTATIN 80 MG TAB PO SCH (21:38)
[2017-03-20] MEDS: CHOLECALCIFEROL 1,000 UNIT TAB PO SCH (21:39)
[2017-03-20] MEDS: SODIUM CHLORIDE 0.9% 1,000 ML IV SCH (21:40)
[2017-03-20] MEDS: TEMAZEPAM 15 MG CAP PO SCH (23:14)
[2017-03-21 03:21] LABS: Iron Saturation 22.29 (15.00-50.00)
[2017-03-21] MEDS: DIALYSIS (PERIT 2.5%) 2,000 ML 50 G/2,000 ML BAG INTRAPERIT SCH ×3 (05:02→17:34)
[2017-03-21] MEDS: HYDROcodone/APAP 7.5-325MG 1 EACH TAB PO PRN ×5 (05:03→23:26)
[2017-03-21] MEDS ORDERED: VANCOMYCIN 1,500 MG in SODIUM CHLORIDE 0.9% 250 ML IVPB ONE (07:00)
[2017-03-21 07:35] LABS: Glucose,Whole Blood 145 mg/dL (75-99)
[2017-03-21 08:45] LABS: Anisocytosis Slight; Basophils % (A) 0 %; CH 27.1; CHCM 29.5; Eosinophils % (A) 1 %; HCT 30.6 % (39.0-53.0); HDW 2.85; HGB 8.7 gm/dL (13.0-17.5); Hypochromasia Marked; Luc # (Auto) 0.17; Luc % (Auto) 4; Lymphocytes # (A) 0.7 k/uL (1.0-4.8); Lymphocytes % (A) 18 %; MCH 26.3 pg (25.0-35.0); MCHC 28.4 g/dL (31.0-37.0); MCV 92.5 fL (80.0-100.0); Mean Platelet Volume 7.3; Monocytes # (A) 0.4 k/uL (0-1.0); Monocytes % (A) 10 %; Neutrophils # (A) 2.6 k/uL (1.3-7.7); Neutrophils % (A) 67 %; RDW 16.1 % (11.5-15.5); WBC (Perox) 3.99
[2017-03-21] MEDS: POLYETHYLENE GLYCOL 3350 17 GM POWD.PACK PO SCH (08:54)
[2017-03-21] MEDS: INSULIN LISPRO (humaLOG) 300 UNIT/3 ML VIAL SQ SCH ×4 (08:58→21:59)
[2017-03-21] MEDS: HEPARIN SODIUM,PORCINE 5,000 UNIT/ML 1 ML VIAL SQ SCH ×2 (09:00→21:58)
[2017-03-21] MEDS: CLOPIDOGREL 75 MG TAB PO SCH (09:00)
[2017-03-21] MEDS: PANTOPRAZOLE 40 MG TABLET PO SCH (09:00)
[2017-03-21] MEDS: MIDODRINE 5 MG TAB PO SCH (09:00)
[2017-03-21] MEDS: GABAPENTIN 300 MG CAP PO SCH ×2 (09:00→21:57)
[2017-03-21] MEDS: FERROUS SULFATE 325 MG TAB PO SCH ×2 (09:01→21:57)
[2017-03-21] MEDS: FUROSEMIDE 20 MG TAB PO SCH ×2 (09:02→15:41)
[2017-03-21] MEDS: DOCUSATE 100 MG CAP PO SCH ×2 (09:02→21:57)
[2017-03-21] MEDS: MYCOPHENOLATE SODIUM DR 180 MG TABLET.DR PO SCH (09:02)
[2017-03-21] MEDS: VIT A,C & E-LUTEIN-MINERALS 1 EACH TAB PO SCH ×2 (09:03→21:57)
[2017-03-21] MEDS: TACROLIMUS 1 MG CAP PO SCH ×2 (09:03→21:57)
[2017-03-21] MEDS: SODIUM BICARBONATE TAB 650 MG TAB PO SCH ×2 (09:03→21:56)
[2017-03-21 09:20] LABS: ALT 29 U/L (21-72); AST 16 U/L (17-59); Alkaline Phosphatase 74 U/L (38-126); Anion Gap 10 mmol/L; Blood Urea Nitrogen 35 mg/dL (9-20); Calcium 8.1 mg/dL (8.4-10.2); Carbon Dioxide 22 mmol/L (22-30); Chloride 104 mmol/L (98-107); Glucose 123 mg/dL (74-99); Non-African American GFR(MDRD) 18 (>60 ml/min/1.73 sqM); Potassium 4.3 mmol/L (3.5-5.1); Sodium 136 mmol/L (137-145); Total Bilirubin <0.1 mg/dL (0.2-1.3); Total Protein 4.1 g/dL (6.3-8.2)
[2017-03-21] MEDS: CALCITRIOL 0.25 MCG CAP PO SCH (11:25)
--- NOTE | 2017-03-21 12:06 | P.PN ---
Subjective Patient is doing well today. No fevers or chills. Objective - Vital Signs Vital signs: Vital Signs Temp 99 F 03/21/17 11:31 Pulse 75 03/21/17 11:31 Resp 16 03/21/17 11:31 BP 137/88 03/21/17 11:31 Pulse Ox 96 03/21/17 11:31 Intake & Output 03/20/17 03/21/17 03/21/17 18:59 06:59 18:59 Intake Total 640 1000 Output Total 375 500 Balance 265 500 Intake: IV 160 Sodium Chloride 0.9% 1, 160 000 ml @ 20 mls/hr IV . Q24H [facility] Rx#:[id number] Intake, IV Titration 1000 Amount Sodium Chloride 0.9% 1, 1000 000 ml @ 20 mls/hr IV . Q24H [facility] Rx#:[id number] Oral 480 Output: Urine 375 500 Other: Voiding Method Toilet Toilet Urinal Urinal # Bowel Movements 1 - Exam General: The patient is awake and alert, in no distress Eye: there is normal conjunctiva bilaterally. Neck: The neck is supple, there is no JVD. Cardiovascular: Normal S1-S2, no S3-S4, no murmurs. Respiratory: Lungs clear to auscultation bilaterally Gastrointestinal: Abdomen is soft, nontender Musculoskeletal: there is bilateral below knee amputation. Right knee stump wrapped with dry/clean dressing eurological:. Speech is normal. Skin: Skin is warm and dry - Labs CBC & Chem 7: 03/21/17 08:20 03/21/17 08:20 Labs: Abnormal Lab Results - Last 24 Hours (Table) 03/20/17 03/20/17 03/20/17 Range/Units 09:16 11:50 17:07 RBC (4.30-5.90) m/uL Hgb (13.0-17.5) gm/dL Hct (39.0-53.0) % MCHC (31.0-37.0) g/dL RDW (11.5-15.5) % Lymphocytes # (1.0-4.8) k/uL Sodium (137-145) mmol/L BUN (9-20) mg/dL Creatinine (0.66-1.25) mg/dL Glucose (74-99) mg/dL POC Glucose (mg/dL) 209 H 114 H (75-99) mg/dL Calcium (8.4-10.2) mg/dL Phosphorus 5.5 H (2.5-4.5) mg/dL Iron 40 L (49-181) ug/dL Total Bilirubin (0.2-1.3) mg/dL AST (17-59) U/L Total Protein (6.3-8.2) g/dL Albumin (3.5-5.0) g/dL 03/20/17 03/21/17 03/21/17 Range/Units 20:56 07:33 08:20 RBC 3.30 L (4.30-5.90) m/uL Hgb 8.7 L (13.0-17.5) gm/dL Hct 30.6 L (39.0-53.0) % MCHC 28.4 L (31.0-37.0) g/dL RDW 16.1 H (11.5-15.5) % Lymphocytes # 0.7 L (1.0-4.8) k/uL Sodium (137-145) mmol/L BUN (9-20) mg/dL Creatinine (0.66-1.25) mg/dL Glucose (74-99) mg/dL POC Glucose (mg/dL) 186 H 145 H (75-99) mg/dL Calcium (8.4-10.2) mg/dL Phosphorus (2.5-4.5) mg/dL Iron (49-181) ug/dL Total Bilirubin (0.2-1.3) mg/dL AST (17-59) U/L Total Protein (6.3-8.2) g/dL Albumin (3.5-5.0) g/dL 03/21/17 Range/Units 08:20 RBC (4.30-5.90) m/uL Hgb (13.0-17.5) gm/dL Hct (39.0-53.0) % MCHC (31.0-37.0) g/dL RDW (11.5-15.5) % Lymphocytes # (1.0-4.8) k/uL Sodium 136 L (137-145) mmol/L BUN 35 H (9-20) mg/dL Creatinine 3.55 H (0.66-1.25) mg/dL Glucose 123 H (74-99) mg/dL POC Glucose (mg/dL) (75-99) mg/dL Calcium 8.1 L (8.4-10.2) mg/dL Phosphorus (2.5-4.5) mg/dL Iron (49-181) ug/dL Total Bilirubin <0.1 L (0.2-1.3) mg/dL AST 16 L (17-59) U/L Total Protein 4.1 L (6.3-8.2) g/dL Albumin 1.9 L (3.5-5.0) g/dL Microbiology - Last 24 Hours (Table) 03/19/17 13:38 Blood Culture - Preliminary Blood No Growth after 24 hours Assessment and Plan Plan: 1. Right stump infection with cellulitis and necrotic skin changes: Patient had recent right below the knee amputation on 02/26/[address] Dugan. Vascular surgery and infectious disease have been consulted. Antibiotic management infectious disease. Blood culture negative to date. 2. 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 Nephrology has been consulted 3. Diabetes mellitus type 2. Order Humalog sliding scale 4. Chronic atrial fibrillation: Coumadin discontinued on previous admissions 5. History of peripheral vascular disease secondary to his diabetes mellitus and had required a left below the knee amputation 6. Status post below knee amputation secondary to gangrene and ulcer on the right foot on 02/26/2017 7. Chronic systolic congestive heart failure: No evidence of exacerbation. 8. Anemia of chronic kidney disease with iron deficiency anemia 9. History of coronary artery disease with previous coronary artery bypass grafting Continue current regimen for now. IV antibiotic over the weekend. Appreciate regional engagement consultant's recommendations. Repeat lab work in the morning.
[2017-03-21 12:25] LABS: Glucose,Whole Blood 120 mg/dL (75-99)
--- NOTE | 2017-03-21 12:48 | PN ---
PROGRESS NOTE This is a 61-year-old gentleman who is well known to us. He had infected gangrene of the right foot with circulation. He had a below-knee amputation done about 3 weeks ago. The patient has been coming as an outpatient to the office. Last visit was 2 days ago. He came with some blister formation noted and some slight redness of the skin. We admitted the patient and had a consult with ID. The patient has been put on IV antibiotics and local wound care. There was concern about flap necrosis. Requested Dr. Nino to see if he is a candidate for hyperbaric chamber. Patient has been seen by Dr. Nino and he wanted to treat with antibiotic. At this point, we will continue with local wound care and IV antibiotics. MMODL / IJN: [id number] /
[2017-03-21 16:51] LABS: Glucose,Whole Blood 133 mg/dL (75-99)
[2017-03-21 21:01] LABS: Glucose,Whole Blood 256 mg/dL (75-99)
[2017-03-21] MEDS: ASPIRIN 81 MG PO SCH (21:56)
[2017-03-21] MEDS: ATORVASTATIN 80 MG TAB PO SCH (21:57)
[2017-03-21] MEDS: CHOLECALCIFEROL 1,000 UNIT TAB PO SCH (21:57)
[2017-03-21] MEDS: DIALYSIS (PERIT 1.5%) 2,000 ML 30 G/2,000 ML BAG INTRAPERIT SCH (23:04)
[2017-03-21] MEDS: TEMAZEPAM 15 MG CAP PO SCH (23:26)
[2017-03-21] MEDS: SODIUM CHLORIDE 0.9% 1,000 ML IV SCH (23:27)
[2017-03-21 23:46] LABS: Glucose,Whole Blood 44 mg/dL (75-99)
[2017-03-22 00:09] LABS: Glucose,Whole Blood 87 mg/dL (75-99)
[2017-03-22] MEDS: DIALYSIS (PERIT 2.5%) 2,000 ML 50 G/2,000 ML BAG INTRAPERIT SCH ×3 (04:34→17:10)
[2017-03-22] MEDS: HYDROcodone/APAP 7.5-325MG 1 EACH TAB PO PRN ×2 (07:27→16:18)
[2017-03-22 07:47] LABS: Glucose,Whole Blood 118 mg/dL (75-99)
[2017-03-22 08:08] LABS: Calcium 8.6 mg/dL (8.4-10.2); Potassium 4.4 mmol/L (3.5-5.1); Total Bilirubin 0.2 mg/dL (0.2-1.3)
[2017-03-22] MEDS: INSULIN LISPRO (humaLOG) 300 UNIT/3 ML VIAL SQ SCH ×4 (08:10→21:47)
[2017-03-22 08:30] LABS: Anisocytosis Slight; Basophils % (A) 1 %; CHCM 29.5; Eosinophils % (A) 1 %; HCT 35.2 % (39.0-53.0); HDW 2.95; HGB 10.4 gm/dL (13.0-17.5); Hypochromasia Marked; Luc # (Auto) 0.16; Luc % (Auto) 4; Lymphocytes # (A) 0.7 k/uL (1.0-4.8); Lymphocytes % (A) 17 %; MCH 27.3 pg (25.0-35.0); MCHC 29.6 g/dL (31.0-37.0); MCV 92.1 fL (80.0-100.0); Mean Platelet Volume 7.6; Monocytes # (A) 0.5 k/uL (0-1.0); Monocytes % (A) 12 %; Neutrophils # (A) 2.7 k/uL (1.3-7.7); Neutrophils % (A) 66 %; RBC 3.82 m/uL (4.30-5.90); RDW 16.4 % (11.5-15.5); WBC 4.2 k/uL (3.8-10.6); WBC (Perox) 4.13
[2017-03-22] MEDS: FERROUS SULFATE 325 MG TAB PO SCH ×2 (09:15→21:46)
[2017-03-22] MEDS: POLYETHYLENE GLYCOL 3350 17 GM POWD.PACK PO SCH (09:16)
[2017-03-22] MEDS: MYCOPHENOLATE SODIUM DR 180 MG TABLET.DR PO SCH (09:19)
[2017-03-22] MEDS: HEPARIN SODIUM,PORCINE 5,000 UNIT/ML 1 ML VIAL SQ SCH ×2 (09:19→21:47)
[2017-03-22] MEDS: GABAPENTIN 300 MG CAP PO SCH ×2 (09:19→21:47)
[2017-03-22] MEDS: SODIUM BICARBONATE TAB 650 MG TAB PO SCH ×2 (09:20→21:47)
[2017-03-22] MEDS: MIDODRINE 5 MG TAB PO SCH (09:20)
[2017-03-22] MEDS: CLOPIDOGREL 75 MG TAB PO SCH (09:20)
[2017-03-22] MEDS: VIT A,C & E-LUTEIN-MINERALS 1 EACH TAB PO SCH ×2 (09:20→21:45)
[2017-03-22] MEDS: DOCUSATE 100 MG CAP PO SCH ×2 (09:20→21:46)
[2017-03-22] MEDS: FUROSEMIDE 20 MG TAB PO SCH ×2 (09:20→16:15)
[2017-03-22] MEDS: TACROLIMUS 1 MG CAP PO SCH ×2 (09:20→21:45)
[2017-03-22] MEDS: PANTOPRAZOLE 40 MG TABLET PO SCH (09:20)
--- NOTE | 2017-03-22 10:36 | P.PN ---
Subjective Patient is seen in follow-up for end-stage renal disease. He is maintained on peritoneal dialysis. Patient had right BKA done in February 2017. Patient presented with infection at the stump site. He is current maintained on IV antibiotics. No issues with peritoneal dialysis. No abdominal pain. Denies constipation. Oral intake is good. Vital signs are stable. General: The patient appeared well nourished and normally developed. HEENT: Head exam is unremarkable. Neck is without jugular venous distension. LUNGS: Lungs are clear to auscultation and percussion. Breath sounds decreased. HEART: Rate and Rhythm are regular. First and second heart sounds normal. No murmurs, rubs or gallops. ABDOMEN: Abdominal exam reveals normal bowel sounds. Non-tender and non- distended. No evidence of peritonitis. EXTREMITITES: No clubbing, cyanosis, or edema. Bilateral below the knee amputation noted. No obvious drainage from stump site. Objective - Vital Signs Vital signs: Vital Signs Temp 97.6 F 03/22/17 07:00 Pulse 65 03/22/17 08:00 Resp 18 03/22/17 08:00 BP 128/75 03/22/17 09:33 Pulse Ox 96 03/22/17 07:00 Intake & Output 03/21/17 03/22/17 03/22/17 18:59 06:59 18:59 Intake Total 400 200 Output Total 240 Balance 160 200 Intake: Oral 400 200 Output: Urine 240 Other: Voiding Method Toilet Toilet Urinal Urinal # Voids 1 - Labs CBC & Chem 7: 03/22/17 07:17 03/22/17 07:17 Labs: Abnormal Lab Results - Last 24 Hours (Table) 03/21/17 03/21/17 03/21/17 Range/Units 12:23 16:48 20:53 RBC (4.30-5.90) m/uL Hgb (13.0-17.5) gm/dL Hct (39.0-53.0) % MCHC (31.0-37.0) g/dL RDW (11.5-15.5) % Lymphocytes # (1.0-4.8) k/uL Sodium (137-145) mmol/L Carbon Dioxide (22-30) mmol/L BUN (9-20) mg/dL Creatinine (0.66-1.25) mg/dL Glucose (74-99) mg/dL POC Glucose (mg/dL) 120 H 133 H 256 H (75-99) mg/dL Total Protein (6.3-8.2) g/dL Albumin (3.5-5.0) g/dL 03/21/17 03/22/17 03/22/17 Range/Units 23:36 07:17 07:17 RBC 3.82 L (4.30-5.90) m/uL Hgb 10.4 L (13.0-17.5) gm/dL Hct 35.2 L (39.0-53.0) % MCHC 29.6 L (31.0-37.0) g/dL RDW 16.4 H (11.5-15.5) % Lymphocytes # 0.7 L (1.0-4.8) k/uL Sodium 136 L (137-145) mmol/L Carbon Dioxide 20 L (22-30) mmol/L BUN 33 H (9-20) mg/dL Creatinine 3.54 H (0.66-1.25) mg/dL Glucose 106 H (74-99) mg/dL POC Glucose (mg/dL) 44 L (75-99) mg/dL Total Protein 5.0 L (6.3-8.2) g/dL Albumin 2.3 L (3.5-5.0) g/dL 03/22/17 Range/Units 07:17 RBC (4.30-5.90) m/uL Hgb (13.0-17.5) gm/dL Hct (39.0-53.0) % MCHC (31.0-37.0) g/dL RDW (11.5-15.5) % Lymphocytes # (1.0-4.8) k/uL Sodium (137-145) mmol/L Carbon Dioxide (22-30) mmol/L BUN (9-20) mg/dL Creatinine (0.66-1.25) mg/dL Glucose (74-99) mg/dL POC Glucose (mg/dL) 118 H (75-99) mg/dL Total Protein (6.3-8.2) g/dL Albumin (3.5-5.0) g/dL Microbiology - Last 24 Hours (Table) 03/19/17 13:38 Blood Culture - Preliminary Blood No Growth after 48 hours Assessment and Plan Plan: Assessment: #1. End-stage renal disease maintained on peritoneal dialysis. #2. Status post right [id number] amputation with cellulitis of the stump site. #3. 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 Now being weaned off immunosuppression. #4. History of left below the knee amputation. #5. Diabetes mellitus. #6. Anemia of chronic kidney disease. Plan: Continue with 2.5 L exchanges every 6 hours for 2.5% dextrose solution. Maintain Aranesp. Maintain oral sodium bicarbonate supplementation. Vascular surgery following. Antibiotics per infectious disease recommendations. Continue with Myfortic and Prograf at current dose.
--- NOTE | 2017-03-22 11:48 | P.PN ---
Subjective Patient is doing well today. No fevers or chills. Objective - Vital Signs Vital signs: Vital Signs Temp 97.6 F 03/22/17 07:00 Pulse 65 03/22/17 08:00 Resp 18 03/22/17 08:00 BP 128/75 03/22/17 09:33 Pulse Ox 96 03/22/17 07:00 Intake & Output 03/21/17 03/22/17 03/22/17 18:59 06:59 18:59 Intake Total 400 200 Output Total 240 Balance 160 200 Intake: Oral 400 200 Output: Urine 240 Other: Voiding Method Toilet Toilet Urinal Urinal # Voids 1 - Exam General: The patient is awake and alert, in no distress Eye: there is normal conjunctiva bilaterally. Neck: The neck is supple, there is no JVD. Cardiovascular: Normal S1-S2, no S3-S4, no murmurs. Respiratory: Lungs clear to auscultation bilaterally Gastrointestinal: Abdomen is soft, nontender Musculoskeletal: there is bilateral below knee amputation. Right knee stump wrapped with dry/clean dressing eurological:. Speech is normal. Skin: Skin is warm and dry - Labs CBC & Chem 7: 03/22/17 07:17 03/22/17 07:17 Labs: Abnormal Lab Results - Last 24 Hours (Table) 03/21/17 03/21/17 03/21/17 Range/Units 12:23 16:48 20:53 RBC (4.30-5.90) m/uL Hgb (13.0-17.5) gm/dL Hct (39.0-53.0) % MCHC (31.0-37.0) g/dL RDW (11.5-15.5) % Lymphocytes # (1.0-4.8) k/uL Sodium (137-145) mmol/L Carbon Dioxide (22-30) mmol/L BUN (9-20) mg/dL Creatinine (0.66-1.25) mg/dL Glucose (74-99) mg/dL POC Glucose (mg/dL) 120 H 133 H 256 H (75-99) mg/dL Total Protein (6.3-8.2) g/dL Albumin (3.5-5.0) g/dL 03/21/17 03/22/17 03/22/17 Range/Units 23:36 07:17 07:17 RBC 3.82 L (4.30-5.90) m/uL Hgb 10.4 L (13.0-17.5) gm/dL Hct 35.2 L (39.0-53.0) % MCHC 29.6 L (31.0-37.0) g/dL RDW 16.4 H (11.5-15.5) % Lymphocytes # 0.7 L (1.0-4.8) k/uL Sodium 136 L (137-145) mmol/L Carbon Dioxide 20 L (22-30) mmol/L BUN 33 H (9-20) mg/dL Creatinine 3.54 H (0.66-1.25) mg/dL Glucose 106 H (74-99) mg/dL POC Glucose (mg/dL) 44 L (75-99) mg/dL Total Protein 5.0 L (6.3-8.2) g/dL Albumin 2.3 L (3.5-5.0) g/dL 03/22/17 Range/Units 07:17 RBC (4.30-5.90) m/uL Hgb (13.0-17.5) gm/dL Hct (39.0-53.0) % MCHC (31.0-37.0) g/dL RDW (11.5-15.5) % Lymphocytes # (1.0-4.8) k/uL Sodium (137-145) mmol/L Carbon Dioxide (22-30) mmol/L BUN (9-20) mg/dL Creatinine (0.66-1.25) mg/dL Glucose (74-99) mg/dL POC Glucose (mg/dL) 118 H (75-99) mg/dL Total Protein (6.3-8.2) g/dL Albumin (3.5-5.0) g/dL Microbiology - Last 24 Hours (Table) 03/19/17 13:38 Blood Culture - Preliminary Blood No Growth after 48 hours Assessment and Plan Plan: 1. Right stump infection with cellulitis and necrotic skin changes: Patient had recent right below the knee amputation on 02/26/[address] Dugan. Vascular surgery and infectious disease have been consulted. Antibiotic management infectious disease. Blood culture negative to date. 2. 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 Nephrology has been consulted 3. Diabetes mellitus type 2. Order Humalog sliding scale 4. Chronic atrial fibrillation: Coumadin discontinued on previous admissions 5. History of peripheral vascular disease secondary to his diabetes mellitus and had required a left below the knee amputation 6. Status post below knee amputation secondary to gangrene and ulcer on the right foot on 02/26/2017 7. Chronic systolic congestive heart failure: No evidence of exacerbation. 8. Anemia of chronic kidney disease with iron deficiency anemia 9. History of coronary artery disease with previous coronary artery bypass grafting Continue current regimen for now. IV antibiotic over the weekend. Appreciate agriculture consultant's recommendations. Repeat lab work in the morning.
[2017-03-22 12:11] LABS: Glucose,Whole Blood 174 mg/dL (75-99)
[2017-03-22] MEDS: CALCITRIOL 0.25 MCG CAP PO SCH (12:20)
[2017-03-22 17:21] LABS: Glucose,Whole Blood 90 mg/dL (75-99)
[2017-03-22 20:39] LABS: Glucose,Whole Blood 162 mg/dL (75-99)
[2017-03-22] MEDS: ASPIRIN 81 MG PO SCH (21:46)
[2017-03-22] MEDS: ATORVASTATIN 80 MG TAB PO SCH (21:46)
[2017-03-22] MEDS: CHOLECALCIFEROL 1,000 UNIT TAB PO SCH (21:46)
[2017-03-22] MEDS: SODIUM CHLORIDE 0.9% 1,000 ML IV SCH (21:47)
[2017-03-22] MEDS: DIALYSIS (PERIT 1.5%) 2,000 ML 30 G/2,000 ML BAG INTRAPERIT SCH (22:52)
[2017-03-22] MEDS: TEMAZEPAM 15 MG CAP PO SCH (23:34)
[2017-03-23] MEDS: HYDROcodone/APAP 7.5-325MG 1 EACH TAB PO PRN ×5 (04:26→22:34)
[2017-03-23] MEDS: DIALYSIS (PERIT 2.5%) 2,000 ML 50 G/2,000 ML BAG INTRAPERIT SCH ×3 (05:20→18:25)
[2017-03-23 08:12] LABS: Glucose,Whole Blood 397 mg/dL (75-99)
[2017-03-23] MEDS: FERROUS SULFATE 325 MG TAB PO SCH ×2 (08:12→21:24)
[2017-03-23] MEDS: PANTOPRAZOLE 40 MG TABLET PO SCH (08:12)
[2017-03-23] MEDS: CLOPIDOGREL 75 MG TAB PO SCH (08:12)
[2017-03-23] MEDS: INSULIN LISPRO (humaLOG) 300 UNIT/3 ML VIAL SQ SCH ×4 (08:12→21:25)
[2017-03-23] MEDS: DOCUSATE 100 MG CAP PO SCH ×2 (08:13→21:25)
[2017-03-23] MEDS: HEPARIN SODIUM,PORCINE 5,000 UNIT/ML 1 ML VIAL SQ SCH ×2 (08:13→23:45)
[2017-03-23] MEDS: FUROSEMIDE 20 MG TAB PO SCH ×2 (08:13→18:25)
[2017-03-23] MEDS: MIDODRINE 5 MG TAB PO SCH (08:13)
[2017-03-23] MEDS: GABAPENTIN 300 MG CAP PO SCH ×2 (08:13→21:24)
[2017-03-23] MEDS: SODIUM BICARBONATE TAB 650 MG TAB PO SCH ×2 (08:14→21:24)
[2017-03-23] MEDS: TACROLIMUS 1 MG CAP PO SCH ×2 (08:14→21:25)
[2017-03-23] MEDS: MYCOPHENOLATE SODIUM DR 180 MG TABLET.DR PO SCH (08:14)
[2017-03-23] MEDS: VIT A,C & E-LUTEIN-MINERALS 1 EACH TAB PO SCH ×2 (08:14→21:25)
[2017-03-23] MEDS: POLYETHYLENE GLYCOL 3350 17 GM POWD.PACK PO SCH (08:15)
[2017-03-23 10:02] LABS: Anisocytosis Slight; Basophils % (A) 0 %; CHCM 29.2; Eosinophils % (A) 1 %; HCT 31.2 % (39.0-53.0); HDW 2.93; HGB 9.1 gm/dL (13.0-17.5); Hypochromasia Marked; Luc # (Auto) 0.09; Luc % (Auto) 3; Lymphocytes # (A) 0.5 k/uL (1.0-4.8); Lymphocytes % (A) 16 %; MCH 27.2 pg (25.0-35.0); MCHC 29.2 g/dL (31.0-37.0); MCV 93.1 fL (80.0-100.0); Mean Platelet Volume 7.5; Monocytes # (A) 0.3 k/uL (0-1.0); Monocytes % (A) 10 %; Neutrophils % (A) 70 %; RBC 3.35 m/uL (4.30-5.90); RDW 16.5 % (11.5-15.5); WBC 2.9 k/uL (3.8-10.6); WBC (Perox) 3.11
[2017-03-23 10:30] LABS: Total Bilirubin 0.3 mg/dL (0.2-1.3); Total Protein 4.1 g/dL (6.3-8.2)
[2017-03-23 10:46] LABS: Potassium 4.8 mmol/L (3.5-5.1)
--- NOTE | 2017-03-23 11:40 | P.PN ---
Subjective Progress Note Date: 03/23/17 This is a 61-year-old male with a known past medical history of chronic renal failure with right kidney transplant on peritoneal dialysis. He also has a history of coronary artery disease with previous coronary bypass grafting, atrial fibrillation, DVT of the lower extremity with Clio filter placed, hypertension, hyperlipidemia, diabetes mellitus type 2, peripheral vascular disease, left BKA and a recent right below the knee amputation on 02/26/2017. Patient had been at [facility] for rehabilitation. He went to a routine follow-up with Dr. Dugan. He has some evidence of cellulitis on his stump around the incision site. The incision site there is necrotic changes. Also there is a blister on the bottom of the stump. And again a purplish color around the blister connecting to the incision. There is tender with palpation of the stump. Patient was told by Dr. Dugan to be admitted to the hospital. Patient was a direct admit from Dr. Mosquera's office. He denies any fever, chills, sweats. He's had a couple episodes of vomiting. Denies any chest pain or shortness of breath. Denies any burning with urination. Denies any significant drainage from the stump. Patient has been admitted to the hospital for infection in the stump of his right leg. Antibiotics will be ordered by infectious disease. Infectious disease, vascular surgery and nephrology have been consulted. 03/20/2017 patient still having pain in the right stump. Still some redness noted. Patient's evaluated by infectious disease. They have him on Fortaz and vancomycin. Patient is lightly wheezy today but denies any shortness of breath or chest pain. He is complaining that his dialysis catheter might be obstructed. He was unable to place all the fluid in and is having some difficulty getting fluid out. 03/23/2017 patient lying in bed comfortably. He reports no pain. Remains on IV antibiotics. Awaiting infectious disease recommendations in regards to a possible bariatric chamber for his leg Objective - Vital Signs Vital signs: Vital Signs Temp 99.3 F 03/23/17 07:00 Pulse 85 03/23/17 07:00 Resp 18 03/23/17 07:00 BP 155/98 03/23/17 07:00 Pulse Ox 95 03/23/17 07:00 Intake & Output 03/22/17 03/23/1717 18:59 06:59 18:59 Intake Total 1000 Balance 1000 Intake: Oral 1000 Other: Voiding Method Toilet Urinal Urinal # Voids 1 1 - Exam Head normocephalic Neck supple Lungs fair to auscultation Heart regular rate and rhythm S1-S2, no rub or gallop Abdomen is soft nontender nondistended positive bowel sounds no hepatosplenomegaly Extremities Right stump evidence of cellulitis with erythema near the incision site. It is warm and tender to touch. The incision site also has black tissue. There is a blister on the distal aspect of the stump. Neuro alert and orientated to 3 - Labs CBC & Chem 7: 03/23/17 09:04 03/23/17 09:04 Labs: Abnormal Lab Results - Last 24 Hours (Table) 03/20/17 03/20/17 03/22/17 Range/Units 09:00 09:00 12:03 WBC (3.8-10.6) k/uL RBC (4.30-5.90) m/uL Hgb (13.0-17.5) gm/dL Hct (39.0-53.0) % MCHC (31.0-37.0) g/dL RDW (11.5-15.5) % Lymphocytes # (1.0-4.8) k/uL Sodium (137-145) mmol/L Carbon Dioxide (22-30) mmol/L BUN (9-20) mg/dL Creatinine (0.66-1.25) mg/dL Glucose (74-99) mg/dL POC Glucose (mg/dL) 174 H (75-99) mg/dL Calcium (8.4-10.2) mg/dL Iron 39 L (65-175) ug/dL TIBC 175 L (228-460) ug/dL Ferritin 690.5 H (22.0-322.0) ng/mL Total Protein (6.3-8.2) g/dL Albumin (3.5-5.0) g/dL 03/22/17 03/23/17 03/23/17 Range/Units 20:37 07:58 09:04 WBC 2.9 L (3.8-10.6) k/uL RBC 3.35 L (4.30-5.90) m/uL Hgb 9.1 L (13.0-17.5) gm/dL Hct 31.2 L (39.0-53.0) % MCHC 29.2 L (31.0-37.0) g/dL RDW 16.5 H (11.5-15.5) % Lymphocytes # 0.5 L (1.0-4.8) k/uL Sodium (137-145) mmol/L Carbon Dioxide (22-30) mmol/L BUN (9-20) mg/dL Creatinine (0.66-1.25) mg/dL Glucose (74-99) mg/dL POC Glucose (mg/dL) 162 H 397 H (75-99) mg/dL Calcium (8.4-10.2) mg/dL Iron (65-175) ug/dL TIBC (228-460) ug/dL Ferritin (22.0-322.0) ng/mL Total Protein (6.3-8.2) g/dL Albumin (3.5-5.0) g/dL 03/23/17 Range/Units 09:04 WBC (3.8-10.6) k/uL RBC (4.30-5.90) m/uL Hgb (13.0-17.5) gm/dL Hct (39.0-53.0) % MCHC (31.0-37.0) g/dL RDW (11.5-15.5) % Lymphocytes # (1.0-4.8) k/uL Sodium 133 L (137-145) mmol/L Carbon Dioxide 20 L (22-30) mmol/L BUN 32 H (9-20) mg/dL Creatinine 3.20 H (0.66-1.25) mg/dL Glucose 174 H (74-99) mg/dL POC Glucose (mg/dL) (75-99) mg/dL Calcium 8.0 L (8.4-10.2) mg/dL Iron (65-175) ug/dL TIBC (228-460) ug/dL Ferritin (22.0-322.0) ng/mL Total Protein 4.1 L (6.3-8.2) g/dL Albumin 1.8 L (3.5-5.0) g/dL Microbiology - Last 24 Hours (Table) 03/19/17 13:38 Blood Culture - Preliminary Blood No Growth after 72 hours Assessment and Plan Plan: 1. Right stump infection with cellulitis and necrotic skin changes: Patient had recent right below the knee amputation on 02/26/[address] Dugan. Vascular surgery and infectious disease have been consulted. Evaluated by infectious disease. Started on Fortaz and vancomycin. Blood cultures remain negative. Awaiting infectious disease recommendations in regards to bariatric chamber 2. Chronic kidney disease stage V with history of right kidney transplant secondary to his diabetes mellitus. He is currently on peritoneal dialysis. Nephrology following 3. Diabetes mellitus type 2. Order Humalog sliding scale 4. Chronic atrial fibrillation: Coumadin discontinued on previous admissions 5. History of peripheral vascular disease secondary to his diabetes mellitus and had required a left below the knee amputation 6. Gangrene and ulcer on the right foot status post right below the knee and dictation on 02/26/2017 7. Chronic systolic congestive heart failure: No evidence of exacerbation. 8. Anemia of chronic kidney disease with iron deficiency anemia 9. History of coronary artery disease with previous coronary artery bypass grafting GI prophylaxis Protonix and DVT prophylaxis subcu heparin I performed an examination of the patient and discussed their management with the physician Mold Dumper. I have reviewed the Physician Mold Dumper's notes and agree with the documented findings and plan of care
[2017-03-23 11:46] LABS: Glucose,Whole Blood 77 mg/dL (75-99)
[2017-03-23 11:46] LABS: Glucose,Whole Blood 54 mg/dL (75-99)
[2017-03-23] MEDS ORDERED: VANCOMYCIN 1,500 MG in SODIUM CHLORIDE 0.9% 250 ML IVPB ONE (12:00)
--- NOTE | 2017-03-23 12:28 | P.HPIM ---
History of Present Illness H&P Date: 03/23/17 Chief Complaint: Flap necrosis Pleasant 61-year-old male who is well-known to me from his recent hospitalization. His a long-standing history of diabetes mellitus type 2. Prior history of superobesity. Complications include peripheral vascular disease, end-stage renal disease on hemodialysis after renal transplantation as failed. He was recently hospitalized for was having increasing pain to the right foot. There was increasing dry gangrenous changes to the foot because he was taken the operating room and the right below-knee amputation . He's been cared for in the outpatient setting. He was seen by the vascular surgeon in the office and was concern for necrosis of the flap and cellulitis. He subsequently was admitted to hospital. At admission there was evidence of some blistering this started to occur in the very distal aspect of the flap. Infectious disease consultation was requested and antibiotic therapy was initiated with ceftazidime and vancomycin for the cellulitis that was evident is noted at that time there was concerns for potential flap necrosis. The patient is reevaluated this morning. It is time at the area where there was some blister this is opened and there is evidence of some necrosis on the distal aspect of the below-knee amputation flap. The surgical incision itself now has an opening along the lateral aspect, which is new and appears to be also on the basis of some flap necrosis. As noted in the patient has a prior left [id number]-tar-[id number] amputation, and it is imperative at this time that the flap to the right lower extremity is salvaged to provide him the ability to ambulate. If the flap is lost on the below-knee amputation and he needs to be converted to an [id number]-[id number] amputation he could then be made been bedbound which would markedly increase his risk for morbidity and mortality. Prior to his surgery he had a Ponce grade 4 diabetic lower extremity ulceration with gangrenous changes. Despite multiple interventions he did not improve he had failed antimicrobial therapy and local wound care. Consequently was taken to the operating room for the [id number] amputation. He did present to hospital after his physician visit on March 19. On the when he was evaluated there is evidence of a blister formation on the most distal aspect of the right BKA stump measuring approximately 4 x 3 but yet was still open. This morning areas evaluated the blister is open it's approximately 4 x 3 x 0.1 cm. However the base of the ulcer shows evidence of some necrotic material. There is evidence of some of his mottling necrosis tracking rates to the flap incision site. On the lateral aspect of the incision site is now an open area with some mild necrosis measuring 0.2 x 1 x 0.2 cm. Both areas have only scant drainage. The tissue erythema persists despite the intravenous antibiotic therapy. The surgical note from 03/06/[address] Dugan, the vascular surgeon. The patient underwent a right [id number] amputation with a standard flap. There is no the patient is developed blistering and evidence of necrosis on the very distal aspect of the flap and lateral surface of the incision for the flap. In the postoperative time frame he has been receiving treatment at the extended care facility necessitated by his prior left below the knee amputation. He was admitted from the physician's office because of concerns to the amputation site on 03/19/2017. Review of Systems Pleasant 61-year-old male comfortable at this time but is very anxious about his amputation site to the right leg. HEENT:Denies headache or acute visual change. Denies sinus or mouth discomforts. Denies neck stiffness or pain. Denies significant oral cavity pain. Denies difficulty on swallowing. Lungs: Denies significant shortness of breath, cough, sputum production, or hemoptysis. Cardiovascular: Denies significant shortness of breath, chest pain, chest wall pain, orthopnea, dyspnea on exertion, syncope Gastrointestinal:Denies nausea, vomiting, diarrhea, constipation, hematemesis, melena, hematochezia. No no significant change of bowel habit noticed. Musculoskeletal: Has chronic back pain, is some discomfort to the amputation site right limb as per the HPI Skin: Per the HPI Neuro: Denies headache or visual change. Denies any new onset weakness or difficulty with ambulation. Denies falls or seizures. Psychiatric:Denies anxiety or depression. Endocrine: Has significant fatigue, is noted to had significant weight gain to the summer with heart failure is now better. 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 Other hx: TAKES NO CURRENT MEDS FOR THYROID, STATES HAS CURRENT KIDNEY TRANSPLANT THAT IS FAILING-has peritoneal dialysis. 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 Last Myocardial Infarction Date:: 2009 History of Any Multi-Drug Resistant Organisms: Acinetobacter (MDRO) Date of last positivie culture/infection: 02/23/17 MDRO Source:: FOOT Past Surgical History: Adenoidectomy, Bariatric Surgery, Coronary Bypass/CABG, Heart Catheterization, Tonsillectomy Additional Past Surgical History / Comment(s): jamarcus fliter, kidney transplant-X2,CABG-2010 TRIPLE, gastric bypass, RT great toe amputation , [facility], RIGHT carotid endarterectomy, amputation lt BKA,angioplasty to the popliteal artery and posterior left femoral artery performed by Dr. Fowler on , RECENT BX-PT BELIEVES IT WAS OF THE RT TEMPERAL ARTERY. Past Anesthesia/Blood Transfusion Reactions: No Reported Reaction Additional Past Anesthesia/Blood Transfusion Reaction / Comment(s): HX BLOOD TRANSFUSIONS- NO REACTIONS . Additional Psychological History / Comment(s): Single. Lives in a family home with his daughter and her 2 children. [employer] nonsmoker. No significant alcohol use. Medically disabled. Pet dog. No experience. Smoking Status: Never smoker Smoking Status: Never smoker - Past Family History Father Family Medical History: Diabetes Mellitus, Dialysis Additional Family Medical History / Comment(s): "big heart", bilat BKA Mother Family Medical History: Cancer Additional Family Medical History / Comment(s): colon Medications and Allergies Home Medications and Allergies Comment(s): Current Medications Hydrocodone Bitart/Acetaminophen ([place] 7.5-325) 1 each PO Q4H PRN PRN Reason: Pain Last Admin: 03/23/17 08:22 Dose: 1 each Aspirin (Aspirin) 81 mg PO HS [facility] Last Admin: 03/22/17 21:46 Dose: 81 mg Atorvastatin Calcium (Lipitor) 80 mg PO HS [facility] Last Admin: 03/22/17 21:46 Dose: 80 mg Calcitriol (Rocaltrol) 0.5 mcg PO 1200 [facility] Last Admin: 03/22/17 12:20 Dose: 0.5 mcg Cholecalciferol (Vitamin D3) 5,000 unit PO HS [facility] Last Admin: 03/22/17 21:46 Dose: 5,000 unit Clopidogrel Bisulfate (Plavix) 75 mg PO DAILY [facility] Last Admin: 03/23/17 08:12 Dose: 75 mg Darbepoetin Tenzin (Aranesp) 40 mcg SQ Q7D [facility] Last Admin: 03/20/17 12:59 Dose: 40 mcg Docusate Sodium (Colace) 100 mg PO BID [facility] Last Admin: 03/23/17 08:13 Dose: 100 mg Ferrous Sulfate (Feosol) 325 mg PO BID [facility] Last Admin: 03/23/17 08:12 Dose: Not Given Furosemide (Lasix) 20 mg PO BID@0900,1600 [facility] Last Admin: 03/23/17 08:13 Dose: 20 mg Gabapentin (Neurontin) 300 mg PO BID [facility] Last Admin: 03/23/17 08:13 Dose: 300 mg Heparin Sodium (Porcine) (Heparin) 5,000 unit SQ Q12HR [facility] Last Admin: 03/23/17 08:13 Dose: 5,000 unit Peritoneal Dialysis Solution (Delflex With 1.5% Dextrose (2,000 Ml)) 30 g in 2, 000 mls @ 0 mls/hr INTRAPERIT 0000 [facility]; As Directed PRN Reason: Protocol Last Admin: 03/22/17 22:52 Dose: 2,000 mls/hr Peritoneal Dialysis Solution (Delflex With 2.5% Dextrose (2,000 Ml)) 50 g in 2, 000 mls @ 0 mls/hr INTRAPERIT 0600,1200,1800 [facility]; As Directed PRN Reason: Protocol Last Admin: 03/23/17 11:17 Dose: 2,000 mls/hr Ceftazidime 0.5 gm/ Sodium (Chloride) 50 mls @ 100 mls/hr IVPB Q24H [facility] Last Admin: 03/22/17 15:01 Dose: 100 mls/hr Sodium Chloride (Saline 0.9%) 1,000 mls @ 20 mls/hr IV .Q24H [facility] Last Admin: 03/22/17 21:47 Dose: 20 mls/hr Vancomycin HCl 1,500 mg/ (Sodium Chloride) 250 mls @ 125 mls/hr IVPB ONCE ONE Stop: 03/23/17 13:59 Insulin Human Lispro (Humalog) 0 unit SQ ACHS [facility] PRN Reason: Protocol Last Admin: 03/23/17 08:12 Dose: 7 unit Midodrine (Proamatine) 5 mg PO DAILY [facility] Last Admin: 03/23/17 08:13 Dose: 5 mg Miscellaneous Information (Pharmacy To Dose Iv Vancomycin) 1 each MISCELLANE DIRECTED PRN PRN Reason: Per Protocol Multivitamins/Minerals (Ivite) 1 each PO BID [facility] Last Admin: 03/23/17 08:14 Dose: 1 each Mycophenolate Sodium (Myfortic) 360 mg PO DAILY [facility] Last Admin: 03/23/17 08:14 Dose: 360 mg Ondansetron HCl (Zofran) 4 mg IVP Q6HR PRN PRN Reason: Vomiting Pantoprazole Sodium (Protonix) 40 mg PO -BRKFST [facility] Last Admin: 03/23/17 08:12 Dose: 40 mg Polyethylene Glycol (Miralax) 17 gm PO DAILY [facility] Last Admin: 03/23/17 08:15 Dose: Not Given Sodium Bicarbonate (Sodium Bicarbonate Tab) 650 mg PO BID [facility] Last Admin: 03/23/17 08:14 Dose: 650 mg Tacrolimus (Prograf) 1 mg PO BID [facility] Last Admin: 03/23/17 08:14 Dose: 1 mg Temazepam (Restoril) 15 mg PO [facility] Last Admin: 03/22/17 23:34 Dose: 15 mg Home Medications Medication Instructions Recorded Confirmed Type Cholecalciferol [Vitamin D3] 5,000 mg PO 05/17/14 03/19/17 History Sodium Bicarbonate Tab 650 mg PO BID 05/17/14 03/19/17 History Tacrolimus [Prograf] 1 mg PO BID 12/06/14 03/19/17 History Magnesium Gluconate [Magonate] 500 mg PO DAILY 02/01/15 03/19/17 History Aspirin EC [Ecotrin Low Dose] 81 mg PO HS 02/12/16 03/19/17 History Atorvastatin [Lipitor] 80 mg PO HS 02/12/16 03/19/17 History Calcitriol 0.5 mcg PO DAILY 02/12/16 03/19/17 History Vit C/E/Zn/Coppr/Lutein/Zeaxan 1 cap PO BID 02/12/16 03/19/17 History [Preservision Areds 2 Softgel] INSULIN LISPRO (HumaLOG) [humaLOG] See Protocol SQ ACHS 07/19/16 03/19/[address] [Myfortic] 360 mg PO DAILY 09/15/16 03/19/17 History Ferrous Sulfate [Feosol] 325 mg PO BID #60 tab 12/22/16 03/19/17 Rx Furosemide [Lasix] 20 mg PO BID 01/01/17 03/19/17 History Midodrine HCl [ProAmatine] 5 mg PO DAILY 01/01/17 03/19/17 History Renaplex D Vitamin 1 tab PO DAILY 01/01/17 03/19/17 History Clopidogrel [Plavix] 75 mg PO DAILY #30 tab 01/10/17 03/19/17 Rx Docusate [Colace] 100 mg PO BID cap 03/03/17 03/19/17 Rx Gabapentin [Neurontin] 300 mg PO BID #60 cap 03/03/17 03/19/17 Rx HYDROcodone/APAP 7.5-325MG [[place] 1 tab PO Q4H PRN #40 tab 03/03/17 03/19/17 Rx 7.5-325] Polyethylene Glycol 3350 [Miralax] 17 gm PO DAILY #30 packet 03/03/17 03/19/17 Rx Temazepam [Restoril] 15 mg PO HS #30 03/03/17 03/19/17 Rx Allergies Allergy/AdvReac Type Severity Reaction Status Date / Time codeine AdvReac Severe constipatio Verified 03/19/17 12:57 n Physical Exam Vitals: Vital Signs Temp Pulse Pulse Resp BP BP Pulse Ox 03/23/17 07:00 99.3 F 85 18 155/98 95 03/23/17 05:02 98.0 F 86 20 95 03/22/17 22:55 97.0 F L 80 20 102/40 94 L 03/22/17 16:00 75 16 03/22/17 15:27 75 16 94 L 03/22/17 14:26 133 H 20 166/98 74 L 03/22/17 11:53 97.6 F 70 18 128/75 Intake and Output 03/22/17 03/23/17 03/23/17 22:59 06:59 14:59 Intake Total 400 Balance 400 Intake: Oral 400 Other: Voiding Method Urinal # Voids 2 1 Pleasant 61-year-old male presents to Hospital with significant change to his right foot. HEENT: Anicteric conjunctiva are pink and moist nasal mucosa grossly intact without significant lesions, there is no thrush. Neck: The neck is supple without significant lymphadenopathy or thyromegaly. Lungs: Good bilateral air entry without significant crackles or wheezing. There is no significant bronchial sounds. There is no egophony or dullness. Heart: Irregular with an audible S1 and S2. No S3 soft S4, 2/6 systolic murmur left sternal border is holosystolic. Abdomen: Positive bowel sounds soft and nontender without palpable masses or organomegaly. There was no guarding or rebound. Extremities: The prior shunt to the left arm is only minimal thrill and apparently is not functional for hemodialysis. The left lower extremity below the knee amputation residual limb is in good order. There is no erythema or crepitance or fluctuance. 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 The right lower extremity at the below-knee amputation stump shows evidence of the blistering that occurred in the distal aspect of the flap. This is now opened there is evidence of some necrotic material at the base. It does travel anterior on the stump to the incision line. Is here is measuring approximate 4 x 3 x 0.1. On the lateral aspect of the flap incision there is also an area that is open at 0.2 x 1 x 0.2 cm that has necrosis at its base. There is minimal coolness to the limb. There is ongoing erythema and is very distal aspect where the blister has formed. He has some pain improved today with current pain medications. Continues to have a good outlook but is frustrated. Neuro: Awake alert oriented to person place and time. Results CBC & Chem 7: 03/23/17 09:04 03/23/17 09:04 Labs: Abnormal Lab Results - Last 24 Hours (Table) 03/20/17 03/20/17 03/22/17 Range/Units 09:00 09:00 12:03 WBC (3.8-10.6) k/uL RBC (4.30-5.90) m/uL Hgb (13.0-17.5) gm/dL Hct (39.0-53.0) % MCHC (31.0-37.0) g/dL RDW (11.5-15.5) % Lymphocytes # (1.0-4.8) k/uL Sodium (137-145) mmol/L Carbon Dioxide (22-30) mmol/L BUN (9-20) mg/dL Creatinine (0.66-1.25) mg/dL Glucose (74-99) mg/dL POC Glucose (mg/dL) 174 H (75-99) mg/dL Calcium (8.4-10.2) mg/dL Iron 39 L (65-175) ug/dL TIBC 175 L (228-460) ug/dL Ferritin 690.5 H (22.0-322.0) ng/mL Total Protein (6.3-8.2) g/dL Albumin (3.5-5.0) g/dL 03/22/17 03/23/17 03/23/17 Range/Units 20:37 07:58 09:04 WBC 2.9 L (3.8-10.6) k/uL RBC 3.35 L (4.30-5.90) m/uL Hgb 9.1 L (13.0-17.5) gm/dL Hct 31.2 L (39.0-53.0) % MCHC 29.2 L (31.0-37.0) g/dL RDW 16.5 H (11.5-15.5) % Lymphocytes # 0.5 L (1.0-4.8) k/uL Sodium (137-145) mmol/L Carbon Dioxide (22-30) mmol/L BUN (9-20) mg/dL Creatinine (0.66-1.25) mg/dL Glucose (74-99) mg/dL POC Glucose (mg/dL) 162 H 397 H (75-99) mg/dL Calcium (8.4-10.2) mg/dL Iron (65-175) ug/dL TIBC (228-460) ug/dL Ferritin (22.0-322.0) ng/mL Total Protein (6.3-8.2) g/dL Albumin (3.5-5.0) g/dL 03/23/17 Range/Units 09:04 WBC (3.8-10.6) k/uL RBC (4.30-5.90) m/uL Hgb (13.0-17.5) gm/dL Hct (39.0-53.0) % MCHC (31.0-37.0) g/dL RDW (11.5-15.5) % Lymphocytes # (1.0-4.8) k/uL Sodium 133 L (137-145) mmol/L Carbon Dioxide 20 L (22-30) mmol/L BUN 32 H (9-20) mg/dL Creatinine 3.20 H (0.66-1.25) mg/dL Glucose 174 H (74-99) mg/dL POC Glucose (mg/dL) (75-99) mg/dL Calcium 8.0 L (8.4-10.2) mg/dL Iron (65-175) ug/dL TIBC (228-460) ug/dL Ferritin (22.0-322.0) ng/mL Total Protein 4.1 L (6.3-8.2) g/dL Albumin 1.8 L (3.5-5.0) g/dL Microbiology - Last 24 Hours (Table) 03/19/17 13:38 Blood Culture - Preliminary Blood No Growth after 72 hours Laboratory Results WBC 2.9 k/uL (3.8-10.6) L 03/23/17 09:04 RBC 3.35 m/uL (4.30-5.90) L 03/23/17 09:04 Hgb 9.1 gm/dL (13.0-17.5) L 03/23/17 09:04 Hct 31.2 % (39.0-53.0) L 03/23/17 09:04 MCV 93.1 fL (80.0-100.0) 03/23/17 09:04 MCH 27.2 pg (25.0-35.0) 03/23/17 09:04 MCHC 29.2 g/dL (31.0-37.0) L 03/23/17 09:04 RDW 16.5 % (11.5-15.5) H 03/23/17 09:04 Plt Count 322 k/uL (150-450) 03/23/17 09:04 Neutrophils % 70 % 10/16/17 09:04 Lymphocytes % 16 % 03/23/17 09:04 Monocytes % 10 % 03/23/17 09:04 Eosinophils % 1 % 03/23/17 09:04 Basophils % 0 % 03/23/17 09:04 Neutrophils # 2.0 k/uL (1.3-7.7) 03/23/17 09:04 Lymphocytes # 0.5 k/uL (1.0-4.8) L 03/23/17 09:04 Monocytes # 0.3 k/uL (0-1.0) 03/23/17 09:04 Eosinophils # 0.0 k/uL (0-0.7) 03/23/17 09:04 Basophils # 0.0 k/uL (0-0.2) 03/23/17 09:04 Hypochromasia Marked 03/23/17 09:04 Anisocytosis Slight 03/23/17 09:04 Sodium 133 mmol/L (137-145) L 03/23/17 09:04 Potassium 4.8 mmol/L (3.5-5.1) 03/23/17 09:04 Chloride 103 mmol/L (98-107) 03/23/17 09:04 Carbon Dioxide 20 mmol/L (22-30) L 03/23/17 09:04 Anion Gap 10 mmol/L 03/23/17 09:04 BUN 32 mg/dL (9-20) H 03/23/17 09:04 Creatinine 3.20 mg/dL (0.66-1.25) H 03/23/17 09:04 Est GFR (MDRD) Af Amer 24 (>60 ml/min/1.73 sqM) 03/23/17 09:04 Est GFR (MDRD) Non-Af 20 (>60 ml/min/1.73 sqM) 03/23/17 09:04 Glucose 174 mg/dL (74-99) H 03/23/17 09:04 POC Glucose (mg/dL) 77 mg/dL (75-99) 03/23/17 11:44 POC Glu Real Estate Management Specialist ID 03/23/17 11:[address] Glu mg/dL 140 mg/dL 03/19/17 13:38 Hemoglobin A1c 6.5 % (4.2-6.1) H 03/19/17 13:38 Calcium 8.0 mg/dL (8.4-10.2) L 03/23/17 09:04 Phosphorus 5.5 mg/dL (2.5-4.5) H 03/20/17 09:16 Iron 40 ug/dL (49-181) L 03/20/17 09:16 TIBC 175 ug/dL (228-460) L 03/20/17 09:00 Iron Saturation 22.29 (15.00-50.00) 03/20/17 09:00 Ferritin 690.5 ng/mL (22.0-322.0) H 03/20/17 09:00 Total Bilirubin 0.3 mg/dL (0.2-1.3) 03/23/17 09:04 AST 23 U/L (17-59) 03/23/17 09:04 ALT 33 U/L (21-72) 03/23/17 09:04 Alkaline Phosphatase 70 U/L (38-126) 03/23/17 09:04 Total Protein 4.1 g/dL (6.3-8.2) L 03/23/17 09:04 Albumin 1.8 g/dL (3.5-5.0) L 03/23/17 09:04 Random Vancomycin 16.5 ug/mL 03/23/17 09:04 Microbiology 03/19/17 13:38 Blood Blood Culture - Preliminary No Growth after 72 hours Thrombosis Risk Factor Assmnt - Choose All That Apply Other Risk Factors: Yes Each Risk Factor Represents 2 Points: Age 61-74 years Other congenital or acquired thrombophilia - If yes, enter type in comment: No Thrombosis Risk Factor Assessment Total Risk Factor Score: 2 Thrombosis Risk Factor Assessment Level: Low Risk Assessment and Plan (1) Diabetes mellitus type 2, controlled, with complications Status: Acute (2) Cellulitis of leg, right Status: Acute (3) Necrosis of amputation stump, right lower extremity Narrative/Plan: 62-year-old male presents to Hospital physician's office for evaluation of the recent right below the knee amputation. There is evidence of some erythema and some blister formation on the distal aspect of the stump. At that time it was concerns to cellulitis and intravenous antibiotic therapy was initiated with ceftaz and vancomycin. Despite 48 hours of antibiotic therapy the site has not worsened. There is evidence of opening of the blister with necrosis at its base. There is also evidence of the surgical incision on his lateral aspect having some opening with some necrosis. Consequently at this time he's having evidence of failure of his flap with some necrosis. We'll continue antibiotic therapy. However urgent hyperbaric oxygen therapy is now required for salvage of his flap. It is of great importance because he is ready had a left below-knee amputation. If the flap is not salvage the right lower extremity this could result in an [id number] amputation. Which would markedly increase the patient's morbidity and mortality with the current amputation and having the prior left below-knee amputation. The patient agrees to start hyperbaric oxygen therapy as soon as possible. The patient will undergo hyperbaric oxygen therapy with twice a day treatments beginning as soon as possible. Would plan twice a day treatments for 5 days as possible. He would be treated Thursday through Thursday and 2.5 ROBEL with 2 air breaks at 5 minutes each. I discussed the risks benefits and complications of hyperbaric oxygen therapy that includes seizures, oxygen toxicity, barotrauma, possible pneumothorax, visual changes and some injury to the ears they're involved hyperbaric oxygen therapy. The patient agrees for treatment. Status: Acute
[2017-03-23] MEDS: CALCITRIOL 0.25 MCG CAP PO SCH (12:34)
--- NOTE | 2017-03-23 12:52 | P.PN ---
Progress Note - Text 62-year-old diabetic male, history of peritoneal dialysis patient had a right hernia petitioned for gangrene of the right foot postoperatively was doing well and sent home he came to the office with some blister formation noted at the stump site and patient has been admitted with IV antibiotic under care of Dr. Nino noted to have some flap necrosis noted at the skin edges and will have a T come steady and possibility of hyperbaric chamber I'm going [place] and Dr. Nino for follow-up
[2017-03-23 15:19] LABS: Glucose,Whole Blood 216 mg/dL (75-99)
[2017-03-23 17:50] LABS: Glucose,Whole Blood 141 mg/dL (75-99)
[2017-03-23 18:47] LABS: Glucose,Whole Blood 157 mg/dL (75-99)
--- NOTE | 2017-03-23 19:28 | P.PN ---
Progress Note - Text Progress Note Date: 03/23/17 Please refer to the hyperbaric oxygen therapy history and physical dictated today as today's progress note.
[2017-03-23 20:31] LABS: Glucose,Whole Blood 152 mg/dL (75-99)
[2017-03-23] MEDS: ASPIRIN 81 MG PO SCH (21:24)
[2017-03-23] MEDS: ATORVASTATIN 80 MG TAB PO SCH (21:24)
[2017-03-23] MEDS: CHOLECALCIFEROL 1,000 UNIT TAB PO SCH (21:25)
[2017-03-23] MEDS: SODIUM CHLORIDE 0.9% 1,000 ML IV SCH (22:36)
[2017-03-23] MEDS: DIALYSIS (PERIT 1.5%) 2,000 ML 30 G/2,000 ML BAG INTRAPERIT SCH (23:00)
[2017-03-23] MEDS: TEMAZEPAM 15 MG CAP PO SCH (23:45)
[2017-03-24] MEDS: HYDROcodone/APAP 7.5-325MG 1 EACH TAB PO PRN ×3 (05:22→18:39)
[2017-03-24] MEDS: DIALYSIS (PERIT 2.5%) 2,000 ML 50 G/2,000 ML BAG INTRAPERIT SCH ×3 (05:28→17:14)
[2017-03-24] MEDS: INSULIN LISPRO (humaLOG) 300 UNIT/3 ML VIAL SQ SCH ×4 (07:42→22:20)
[2017-03-24] MEDS: FERROUS SULFATE 325 MG TAB PO SCH ×3 (07:43→23:23)
[2017-03-24] MEDS: HEPARIN SODIUM,PORCINE 5,000 UNIT/ML 1 ML VIAL SQ SCH ×2 (07:44→22:19)
[2017-03-24] MEDS: FUROSEMIDE 20 MG TAB PO SCH ×2 (07:44→17:14)
[2017-03-24] MEDS: MIDODRINE 5 MG TAB PO SCH (07:45)
[2017-03-24] MEDS: DOCUSATE 100 MG CAP PO SCH ×2 (07:45→22:19)
[2017-03-24] MEDS: MYCOPHENOLATE SODIUM DR 180 MG TABLET.DR PO SCH (07:45)
[2017-03-24] MEDS: CLOPIDOGREL 75 MG TAB PO SCH (07:45)
[2017-03-24] MEDS: GABAPENTIN 300 MG CAP PO SCH ×2 (07:45→22:19)
[2017-03-24] MEDS: PANTOPRAZOLE 40 MG TABLET PO SCH (07:45)
[2017-03-24] MEDS: VIT A,C & E-LUTEIN-MINERALS 1 EACH TAB PO SCH ×2 (07:46→22:19)
[2017-03-24] MEDS: POLYETHYLENE GLYCOL 3350 17 GM POWD.PACK PO SCH (07:46)
[2017-03-24] MEDS: TACROLIMUS 1 MG CAP PO SCH ×2 (07:46→22:18)
[2017-03-24] MEDS: SODIUM BICARBONATE TAB 650 MG TAB PO SCH ×2 (07:46→22:19)
[2017-03-24 08:08] LABS: Glucose,Whole Blood 162 mg/dL (75-99)
[2017-03-24] MEDS ORDERED: ALPRAZolam 0.5 MG TAB PO STA (08:31)
[2017-03-24 08:53] LABS: Glucose,Whole Blood 485 mg/dL (75-99)
[2017-03-24 10:58] LABS: Glucose,Whole Blood 135 mg/dL (75-99)
--- NOTE | 2017-03-24 11:44 | P.PN ---
Subjective Progress Note Date: 03/24/17 This is a 61-year-old male with a known past medical history of chronic renal failure with right kidney transplant on peritoneal dialysis. He also has a history of coronary artery disease with previous coronary bypass grafting, atrial fibrillation, DVT of the lower extremity with [place] filter placed, hypertension, hyperlipidemia, diabetes mellitus type 2, peripheral vascular disease, left BKA and a recent right below the knee amputation on 02/26/2017. Patient had been at [facility] for rehabilitation. He went to a routine follow-up with Dr. Dugan. He has some evidence of cellulitis on his stump around the incision site. The incision site there is necrotic changes. Also there is a blister on the bottom of the stump. And again a purplish color around the blister connecting to the incision. There is tender with palpation of the stump. Patient was told by Dr. Dugan to be admitted to the hospital. Patient was a direct admit from Dr. Mosquera's office. He denies any fever, chills, sweats. He's had a couple episodes of vomiting. Denies any chest pain or shortness of breath. Denies any burning with urination. Denies any significant drainage from the stump. Patient has been admitted to the hospital for infection in the stump of his right leg. Antibiotics will be ordered by infectious disease. Infectious disease, vascular surgery and nephrology have been consulted. 03/20/2017 patient still having pain in the right stump. Still some redness noted. Patient's evaluated by infectious disease. They have him on Fortaz and vancomycin. Patient is lightly wheezy today but denies any shortness of breath or chest pain. He is complaining that his dialysis catheter might be obstructed. He was unable to place all the fluid in and is having some difficulty getting fluid out. 03/23/2017 patient lying in bed comfortably. He reports no pain. Remains on IV antibiotics. Awaiting infectious disease recommendations in regards to a possible hyperbaric oxyegen therapy for his leg 03/24/2017 patient started the hyperbaric oxygen therapy today. Pain is tolerable. Denies any chest pain or shortness breath. Denies any nausea or vomiting. She denies any bowel movement changes or urinary symptoms. Objective - Vital Signs Vital signs: Vital Signs Temp 96.8 F L 03/24/17 07:00 Pulse 86 03/24/17 07:00 Resp 20 03/24/17 07:00 BP 110/61 03/24/17 07:00 Pulse Ox 90 L 03/24/17 07:00 Intake & Output 03/23/17 03/24/17 03/24/17 18:59 06:59 18:59 Output Total 375 Balance -375 Output: Urine 375 Other: Voiding Method Urinal # Voids 0 - Exam Head normocephalic Neck supple Lungs fair to auscultation Heart regular rate and rhythm S1-S2, no rub or gallop Abdomen is soft nontender nondistended positive bowel sounds no hepatosplenomegaly Extremities Right stump evidence of cellulitis with erythema near the incision site. It is warm and tender to touch. The incision site also has black tissue. There is a blister on the distal aspect of the stump. Neuro alert and orientated to 3 - Labs CBC & Chem 7: 03/23/17 09:04 03/23/17 09:04 Labs: Abnormal Lab Results - Last 24 Hours (Table) 03/23/17 03/23/17 03/23/17 Range/Units 11:32 15:07 17:38 POC Glucose (mg/dL) 54 L 216 H 141 H (75-99) mg/dL 03/23/17 03/23/17 03/24/17 Range/Units 18:25 20:29 07:30 POC Glucose (mg/dL) 157 H 152 H 162 H (75-99) mg/dL 03/24/17 03/24/17 Range/Units 08:38 10:56 POC Glucose (mg/dL) 485 H 135 H (75-99) mg/dL Microbiology - Last 24 Hours (Table) 03/19/17 13:38 Blood Culture - Preliminary Blood No Growth after 96 hours Assessment and Plan Plan: 1. Right stump infection with cellulitis and necrotic skin changes: Patient had recent right below the knee amputation on 02/26/[address] Dugan. Vascular surgery and infectious disease have been consulted. Evaluated by infectious disease. Started on Fortaz and vancomycin. Blood cultures remain negative. patient started the hyperbaric oxygen therapy today. He has treatments twice a day. Infectious disease is recommending 3 days of inpatient treatments. 2. Chronic kidney disease stage V with history of right kidney transplant secondary to his diabetes mellitus. He is currently on peritoneal dialysis. Nephrology following 3. Diabetes mellitus type 2. Order Humalog sliding scale 4. Chronic atrial fibrillation: Coumadin discontinued on previous admissions 5. History of peripheral vascular disease secondary to his diabetes mellitus and had required a left below the knee amputation 6. Gangrene and ulcer on the right foot status post right below the knee and dictation on 02/26/2017 7. Chronic systolic congestive heart failure: No evidence of exacerbation. 8. Anemia of chronic kidney disease with iron deficiency anemia 9. History of coronary artery disease with previous coronary artery bypass grafting GI prophylaxis Protonix and DVT prophylaxis subcu heparin I performed an examination of the patient and discussed their management with the physician Account Consultant. I have reviewed the Physician Account Consultant's notes and agree with the documented findings and plan of care
[2017-03-24] MEDS: CALCITRIOL 0.25 MCG CAP PO SCH (11:54)
--- NOTE | 2017-03-24 11:57 | P.PN ---
Subjective Patient is seen in follow-up for end-stage renal disease. He is maintained on peritoneal dialysis. Patient had right BKA done in February 2017. Patient presented with infection at the stump site. He is current maintained on IV antibiotics. He is also started hyperbaric oxygen therapy and seems to be tolerating it well. No issues with peritoneal dialysis. No abdominal pain. Denies constipation. Oral intake is good. Vital signs are stable. General: The patient appeared well nourished and normally developed. HEENT: Head exam is unremarkable. Neck is without jugular venous distension. LUNGS: Lungs are clear to auscultation and percussion. Breath sounds decreased. HEART: Rate and Rhythm are regular. First and second heart sounds normal. No murmurs, rubs or gallops. ABDOMEN: Abdominal exam reveals normal bowel sounds. Non-tender and non- distended. No evidence of peritonitis. EXTREMITITES: No clubbing, cyanosis, or edema. Bilateral below the knee amputation noted. No obvious drainage from stump site. Objective - Vital Signs Vital signs: Vital Signs Temp 96.8 F L 03/24/17 07:00 Pulse 86 03/24/17 07:00 Resp 20 03/24/17 07:00 BP 110/61 03/24/17 07:00 Pulse Ox 90 L 03/24/17 07:00 Intake & Output 03/23/17 03/24/17 03/24/17 18:59 06:59 18:59 Output Total 375 Balance -375 Output: Urine 375 Other: Voiding Method Urinal # Voids 0 - Labs CBC & Chem 7: 03/23/17 09:04 03/23/17 09:04 Labs: Abnormal Lab Results - Last 24 Hours (Table) 03/23/17 03/23/17 03/23/17 Range/Units 15:07 17:38 18:25 POC Glucose (mg/dL) 216 H 141 H 157 H (75-99) mg/dL 03/23/17 03/24/17 03/24/17 Range/Units 20:29 07:30 08:38 POC Glucose (mg/dL) 152 H 162 H 485 H (75-99) mg/dL 03/24/17 Range/Units 10:56 POC Glucose (mg/dL) 135 H (75-99) mg/dL Microbiology - Last 24 Hours (Table) 03/19/17 13:38 Blood Culture - Preliminary Blood No Growth after 96 hours Assessment and Plan Plan: Assessment: #1. End-stage renal disease maintained on peritoneal dialysis. #2. Status post right [id number] amputation with cellulitis of the stump site. #3. History of donor renal allograft from [facility] in 2010. Now being weaned off immunosuppression. #4. History of left below the knee amputation. #5. Diabetes mellitus. #6. Anemia of chronic kidney disease. Plan: Continue with 2.5 L exchanges every 6 hours for 2.5% dextrose solution. Maintain Aranesp. Maintain oral sodium bicarbonate supplementation. Vascular surgery following. Antibiotics per infectious disease recommendations. Continue with Prograf. I will discontinue Myfortic.
[2017-03-24 12:49] LABS: Glucose,Whole Blood 85 mg/dL (75-99)
[2017-03-24 14:00] LABS: Anisocytosis Slight; Basophils % (A) 0 %; CH 27.3; Eosinophils % (A) 0 %; HCT 33.9 % (39.0-53.0); HDW 2.96; HGB 9.5 gm/dL (13.0-17.5); Hypochromasia Marked; Luc # (Auto) 0.26; Luc % (Auto) 2; Lymphocytes # (A) 0.9 k/uL (1.0-4.8); Lymphocytes % (A) 8 %; MCH 26.6 pg (25.0-35.0); MCV 94.9 fL (80.0-100.0); Mean Platelet Volume 7.6; Monocytes # (A) 0.7 k/uL (0-1.0); Monocytes % (A) 6 %; Neutrophils # (A) 8.7 k/uL (1.3-7.7); Neutrophils % (A) 83 %; RBC 3.57 m/uL (4.30-5.90); RDW 16.8 % (11.5-15.5); WBC 10.5 k/uL (3.8-10.6); WBC (Perox) 9.83
[2017-03-24] MEDS: ALPRAZolam 0.5 MG TAB PO PRN (14:01)
[2017-03-24 14:30] LABS: Calcium 8.2 mg/dL (8.4-10.2); Total Bilirubin 0.2 mg/dL (0.2-1.3); Total Protein 4.2 g/dL (6.3-8.2)
[2017-03-24 14:37] LABS: Potassium 4.5 mmol/L (3.5-5.1)
[2017-03-24 14:55] LABS: Glucose,Whole Blood 258 mg/dL (75-99)
[2017-03-24 16:45] LABS: Glucose,Whole Blood 131 mg/dL (75-99)
[2017-03-24 17:19] LABS: Glucose,Whole Blood 106 mg/dL (75-99)
[2017-03-24 21:12] LABS: Glucose,Whole Blood 187 mg/dL (75-99)
--- NOTE | 2017-03-24 22:07 | P.PN ---
Subjective Progress Note Date: 03/24/17 Principal diagnosis: Infection of right below the knee amputation Pleasant 61-year-old male who is well-known to me from his recent hospitalization. His a long-standing history of diabetes mellitus type 2. Prior history of superobesity. Complications include peripheral vascular disease, end-stage renal disease on hemodialysis after renal transplantation as failed. He was recently hospitalized for was having increasing pain to the right foot. These having increasing dry gangrenous changes to the foot because he was taken the operating room for the right below-knee amputation. He's been cared for in the outpatient setting. He was seen by the vascular surgeon in the office and there was some concern as to the limb and consequently was admitted to hospital for antimicrobial therapy and intervention. At this time other than pain at the site he is denying other acute difficulties. He does have fatigue and malaise. He denies high-grade fevers chills rigors or sweats. The patient has now been started on hyperbaric oxygen therapy for his failed flap to the right below-knee amputation site. After his first 2 treatments of hyperbaric oxygen therapy there as been some improvement to the site. Some improvement of the tissue quality is noted. He tolerated hyperbaric oxygen therapy well with the addition of Xanax. Objective - Vital Signs Vital signs: Vital Signs Temp 97.4 F L 03/24/17 17:24 Pulse 73 03/24/17 17:24 Resp 18 03/24/17 17:24 BP 115/70 03/24/17 17:24 Pulse Ox 93 L 03/24/17 17:24 Intake & Output 03/24/17 03/24/17 03/25/17 06:59 18:59 06:59 Output Total 375 Balance -375 Output: Urine 375 Other: Voiding Method Urinal # Voids 0 0 - Exam Pleasant 61-year-old male presents to Hospital with significant change to his right foot. HEENT: Anicteric conjunctiva are pink and moist nasal mucosa grossly intact without significant lesions, there is no thrush. Neck: The neck is supple without significant lymphadenopathy or thyromegaly. Lungs: Good bilateral air entry without significant crackles or wheezing. There is no significant bronchial sounds. There is no egophony or dullness. Heart: Irregular with an audible S1 and S2. No S3 soft S4, 2/6 systolic murmur left sternal border is holosystolic. Abdomen: Positive bowel sounds soft and nontender without palpable masses or organomegaly. There was no guarding or rebound. Extremities: The prior shunt to the left arm is only minimal thrill and apparently is not functional for hemodialysis. The left lower extremity below the knee amputation residual limb is in good order. There is no erythema or crepitance or fluctuance. He wears a cardiac cath rn and has no edema or lesions. The right lower extremity feels evidence of the recent below the knee amputation. There was evidence of a blister that is open with evidence of necrosis at its base. He is noted to hyperbaric oxygen treatments with some improvement in this area. Neuro: Awake alert oriented to person place and time. He was having severe anxiety and has done well with Xanax. - Labs CBC & Chem 7: 03/24/17 13:42 03/24/17 13:42 Labs: Abnormal Lab Results - Last 24 Hours (Table) 03/24/17 03/24/17 03/24/17 Range/Units 07:30 08:38 10:56 RBC (4.30-5.90) m/uL Hgb (13.0-17.5) gm/dL Hct (39.0-53.0) % MCHC (31.0-37.0) g/dL RDW (11.5-15.5) % Neutrophils # (1.3-7.7) k/uL Lymphocytes # (1.0-4.8) k/uL Sodium (137-145) mmol/L Carbon Dioxide (22-30) mmol/L BUN (9-20) mg/dL Creatinine (0.66-1.25) mg/dL Glucose (74-99) mg/dL POC Glucose (mg/dL) 162 H 485 H 135 H (75-99) mg/dL Calcium (8.4-10.2) mg/dL Total Protein (6.3-8.2) g/dL Albumin (3.5-5.0) g/dL 03/24/17 03/24/17 03/24/17 Range/Units 13:42 13:42 14:35 RBC 3.57 L (4.30-5.90) m/uL Hgb 9.5 L (13.0-17.5) gm/dL Hct 33.9 L (39.0-53.0) % MCHC 28.0 L (31.0-37.0) g/dL RDW 16.8 H (11.5-15.5) % Neutrophils # 8.7 H (1.3-7.7) k/uL Lymphocytes # 0.9 L (1.0-4.8) k/uL Sodium 132 L (137-145) mmol/L Carbon Dioxide 20 L (22-30) mmol/L BUN 35 H (9-20) mg/dL Creatinine 3.50 H (0.66-1.25) mg/dL Glucose 251 H (74-99) mg/dL POC Glucose (mg/dL) 258 H (75-99) mg/dL Calcium 8.2 L (8.4-10.2) mg/dL Total Protein 4.2 L (6.3-8.2) g/dL Albumin 1.9 L (3.5-5.0) g/dL 03/24/17 03/24/17 03/24/17 Range/Units 16:33 17:15 21:08 RBC (4.30-5.90) m/uL Hgb (13.0-17.5) gm/dL Hct (39.0-53.0) % MCHC (31.0-37.0) g/dL RDW (11.5-15.5) % Neutrophils # (1.3-7.7) k/uL Lymphocytes # (1.0-4.8) k/uL Sodium (137-145) mmol/L Carbon Dioxide (22-30) mmol/L BUN (9-20) mg/dL Creatinine (0.66-1.25) mg/dL Glucose (74-99) mg/dL POC Glucose (mg/dL) 131 H 106 H 187 H (75-99) mg/dL Calcium (8.4-10.2) mg/dL Total Protein (6.3-8.2) g/dL Albumin (3.5-5.0) g/dL Microbiology - Last 24 Hours (Table) 03/19/17 13:38 Blood Culture - Preliminary Blood No Growth after 120 hours Laboratory Results WBC 10.5 k/uL (3.8-10.6) 03/24/17 13:42 RBC 3.57 m/uL (4.30-5.90) L 03/24/17 13:42 Hgb 9.5 gm/dL (13.0-17.5) L 03/24/17 13:42 Hct 33.9 % (39.0-53.0) L 03/24/17 13:42 MCV 94.9 fL (80.0-100.0) 03/24/17 13:42 MCH 26.6 pg (25.0-35.0) 03/24/17 13:42 MCHC 28.0 g/dL (31.0-37.0) L 03/24/17 13:42 RDW 16.8 % (11.5-15.5) H 03/24/17 13:42 Plt Count 345 k/uL (150-450) 03/24/17 13:42 Neutrophils % 83 % 03/24/17 13:42 Lymphocytes % 8 % 03/24/17 13:42 Monocytes % 6 % 03/24/17 13:42 Eosinophils % 0 % 03/24/17 13:42 Basophils % 0 % 03/24/17 13:42 Neutrophils # 8.7 k/uL (1.3-7.7) H 03/24/17 13:42 Lymphocytes # 0.9 k/uL (1.0-4.8) L 03/24/17 13:42 Monocytes # 0.7 k/uL (0-1.0) 03/24/17 13:42 Eosinophils # 0.0 k/uL (0-0.7) 03/24/17 13:42 Basophils # 0.0 k/uL (0-0.2) 03/24/17 13:42 Hypochromasia Marked 03/24/17 13:42 Anisocytosis Slight 03/24/17 13:42 Sodium 132 mmol/L (137-145) L 03/24/17 13:42 Potassium 4.5 mmol/L (3.5-5.1) 03/24/17 13:42 Chloride 101 mmol/L (98-107) 03/24/17 13:42 Carbon Dioxide 20 mmol/L (22-30) L 03/24/17 13:42 Anion Gap 11 mmol/L 03/24/17 13:42 BUN 35 mg/dL (9-20) H 03/24/17 13:42 Creatinine 3.50 mg/dL (0.66-1.25) H 03/24/17 13:42 Est GFR (MDRD) Af Amer 22 (>60 ml/min/1.73 sqM) 03/24/17 13:42 Est GFR (MDRD) Non-Af 18 (>60 ml/min/1.73 sqM) 03/24/17 13:42 Glucose 251 mg/dL (74-99) H 03/24/17 13:42 POC Glucose (mg/dL) 187 mg/dL (75-99) H 03/24/17 21:08 POC Glu Nursing Director Mami Murphy 03/24/17 21:[address] Glu mg/dL 140 mg/dL 03/19/17 13:38 Hemoglobin A1c 6.5 % (4.2-6.1) H 03/19/17 13:38 Calcium 8.2 mg/dL (8.4-10.2) L 03/24/17 13:42 Phosphorus 5.5 mg/dL (2.5-4.5) H 03/20/17 09:16 Iron 40 ug/dL (49-181) L 03/20/17 09:16 TIBC 175 ug/dL (228-460) L 03/20/17 09:00 Iron Saturation 22.29 (15.00-50.00) 03/20/17 09:00 Ferritin 690.5 ng/mL (22.0-322.0) H 03/20/17 09:00 Total Bilirubin 0.2 mg/dL (0.2-1.3) 03/24/17 13:42 AST 59 U/L (17-59) 03/24/17 13:42 ALT 33 U/L (21-72) 03/24/17 13:42 Alkaline Phosphatase 81 U/L (38-126) 03/24/17 13:42 Total Protein 4.2 g/dL (6.3-8.2) L 03/24/17 13:42 Albumin 1.9 g/dL (3.5-5.0) L 03/24/17 13:42 Random Vancomycin 16.5 ug/mL 03/23/17 09:04 Microbiology 03/19/17 13:38 Blood Blood Culture - Preliminary No Growth after 120 hours Assessment and Plan (1) Diabetes mellitus type 2, controlled, with complications Current Visit: No Status: Acute Code(s): E11.8 - TYPE 2 DIABETES MELLITUS WITH UNSPECIFIED COMPLICATIONS SNOMED Code(s): 01916582 (2) Cellulitis of leg, right Narrative/Plan: Pleasant 61-year-old male presents to Hospital from the [facility] care facility after being seen by his vascular surgeon with concerns to the residual limb of the right side. He underwent a recent [id number] amputation and there was some concern to blister that formed on the most distal aspect of the stump. Consequently was admitted to hospital ID consult was requested. At this time intravenous antimicrobial therapy is initiated with ceftazidime and vancomycin based on prior cultures. Cultures are in process. The patient is been initiated with hyperbaric oxygen therapy. He is now had a couple treatments and is tolerating it well with utilization of Xanax. The flap seems to be tolerating hyperbaric oxygen therapy while showing some improvement. We'll plan twice a day treatments for the next 2-3 days and continue to monitor closely. Current Visit: Yes Status: Acute Code(s): L03.115 - CELLULITIS OF RIGHT LOWER LIMB SNOMED Code(s): 753901747 (3) Necrosis of amputation stump, right lower extremity Current Visit: Yes Status: Acute Code(s): T87.53 - NECROSIS OF AMPUTATION STUMP, RIGHT LOWER EXTREMITY SNOMED Code(s): 454682316
[2017-03-24] MEDS: CHOLECALCIFEROL 1,000 UNIT TAB PO SCH (22:17)
[2017-03-24] MEDS: ATORVASTATIN 80 MG TAB PO SCH (22:18)
[2017-03-24] MEDS: ASPIRIN 81 MG PO SCH (22:18)
[2017-03-24] MEDS: SODIUM CHLORIDE 0.9% 1,000 ML IV SCH (22:21)
[2017-03-24] MEDS: TEMAZEPAM 15 MG CAP PO SCH (22:57)
[2017-03-24 23:01] LABS: Glucose,Whole Blood 140 mg/dL (75-99)
[2017-03-24] MEDS: DIALYSIS (PERIT 1.5%) 2,000 ML 30 G/2,000 ML BAG INTRAPERIT SCH (23:09)
[2017-03-25] MEDS: DIALYSIS (PERIT 2.5%) 2,000 ML 50 G/2,000 ML BAG INTRAPERIT SCH ×3 (05:20→17:34)
[2017-03-25 07:24] LABS: Glucose,Whole Blood 125 mg/dL (75-99)
[2017-03-25] MEDS: INSULIN LISPRO (humaLOG) 300 UNIT/3 ML VIAL SQ SCH ×5 (07:40→23:08)
[2017-03-25] MEDS: FERROUS SULFATE 325 MG TAB PO SCH ×2 (08:18→22:23)
[2017-03-25] MEDS: POLYETHYLENE GLYCOL 3350 17 GM POWD.PACK PO SCH (08:18)
[2017-03-25] MEDS: DOCUSATE 100 MG CAP PO SCH ×2 (08:19→22:24)
[2017-03-25] MEDS: FUROSEMIDE 20 MG TAB PO SCH ×2 (08:19→17:39)
[2017-03-25] MEDS: CLOPIDOGREL 75 MG TAB PO SCH (08:19)
[2017-03-25] MEDS: PANTOPRAZOLE 40 MG TABLET PO SCH (08:20)
[2017-03-25] MEDS: VIT A,C & E-LUTEIN-MINERALS 1 EACH TAB PO SCH ×2 (08:20→22:23)
[2017-03-25] MEDS: TACROLIMUS 1 MG CAP PO SCH ×2 (08:20→22:24)
[2017-03-25] MEDS: HEPARIN SODIUM,PORCINE 5,000 UNIT/ML 1 ML VIAL SQ SCH ×2 (08:21→22:25)
[2017-03-25] MEDS: GABAPENTIN 300 MG CAP PO SCH ×2 (08:21→22:23)
[2017-03-25] MEDS: SODIUM BICARBONATE TAB 650 MG TAB PO SCH ×2 (08:21→22:23)
[2017-03-25] MEDS: MIDODRINE 5 MG TAB PO SCH (08:21)
[2017-03-25] MEDS: ALPRAZolam 0.5 MG TAB PO PRN ×2 (08:27→14:41)
[2017-03-25 08:53] LABS: Glucose,Whole Blood 242 mg/dL (75-99)
[2017-03-25 08:59] LABS: Calcium 8.2 mg/dL (8.4-10.2); Potassium 4.4 mmol/L (3.5-5.1); Total Bilirubin 0.2 mg/dL (0.2-1.3); Total Protein 4.7 g/dL (6.3-8.2)
[2017-03-25 09:32] LABS: Anisocytosis Slight; Basophils % (A) 0 %; CH 27.5; CHCM 29.6; Eosinophils # (A) 0.1 k/uL (0-0.7); Eosinophils % (A) 1 %; HCT 33.9 % (39.0-53.0); HDW 3.08; HGB 9.8 gm/dL (13.0-17.5); Hypochromasia Marked; Luc # (Auto) 0.11; Luc % (Auto) 2; Lymphocytes # (A) 0.7 k/uL (1.0-4.8); Lymphocytes % (A) 13 %; MCHC 28.9 g/dL (31.0-37.0); MCV 93.6 fL (80.0-100.0); Mean Platelet Volume 7.8; Monocytes # (A) 0.5 k/uL (0-1.0); Monocytes % (A) 8 %; Neutrophils # (A) 4.5 k/uL (1.3-7.7); Neutrophils % (A) 76 %; RBC 3.62 m/uL (4.30-5.90); RDW 16.9 % (11.5-15.5); WBC 5.8 k/uL (3.8-10.6); WBC (Perox) 5.54
[2017-03-25 11:34] LABS: Glucose,Whole Blood 225 mg/dL (75-99)
[2017-03-25] MEDS: HYDROcodone/APAP 7.5-325MG 1 EACH TAB PO PRN ×2 (12:04→23:03)
[2017-03-25] MEDS: CALCITRIOL 0.25 MCG CAP PO SCH (12:07)
[2017-03-25 12:21] LABS: Glucose,Whole Blood 131 mg/dL (75-99)
[2017-03-25] MEDS ORDERED: VANCOMYCIN 1,500 MG in SODIUM CHLORIDE 0.9% 250 ML IVPB ONE (13:00)
[2017-03-25 14:43] LABS: Glucose,Whole Blood 259 mg/dL (75-99)
[2017-03-25 17:03] LABS: Glucose,Whole Blood 112 mg/dL (75-99)
--- NOTE | 2017-03-25 17:36 | P.PN ---
Subjective Progress Note Date: 03/25/17 This is a 61-year-old male with a known past medical history of chronic renal failure with right kidney transplant on peritoneal dialysis. He also has a history of coronary artery disease with previous coronary bypass grafting, atrial fibrillation, DVT of the lower extremity with [place] filter placed, hypertension, hyperlipidemia, diabetes mellitus type 2, peripheral vascular disease, left BKA and a recent right below the knee amputation on 02/26/2017. Patient had been at [facility] for rehabilitation. He went to a routine follow-up with Dr. Dugan. He has some evidence of cellulitis on his stump around the incision site. The incision site there is necrotic changes. Also there is a blister on the bottom of the stump. And again a purplish color around the blister connecting to the incision. There is tender with palpation of the stump. Patient was told by Dr. Dugan to be admitted to the hospital. Patient was a direct admit from Dr. Mosquera's office. He denies any fever, chills, sweats. He's had a couple episodes of vomiting. Denies any chest pain or shortness of breath. Denies any burning with urination. Denies any significant drainage from the stump. Patient has been admitted to the hospital for infection in the stump of his right leg. Antibiotics will be ordered by infectious disease. Infectious disease, vascular surgery and nephrology have been consulted. 03/20/2017 patient still having pain in the right stump. Still some redness noted. Patient's evaluated by infectious disease. They have him on Fortaz and vancomycin. Patient is lightly wheezy today but denies any shortness of breath or chest pain. He is complaining that his dialysis catheter might be obstructed. He was unable to place all the fluid in and is having some difficulty getting fluid out. 03/23/2017 patient lying in bed comfortably. He reports no pain. Remains on IV antibiotics. Awaiting infectious disease recommendations in regards to a possible hyperbaric oxyegen therapy for his leg 03/24/2017 patient started the hyperbaric oxygen therapy today. Pain is tolerable. Denies any chest pain or shortness breath. Denies any nausea or vomiting. She denies any bowel movement changes or urinary symptoms. On 03/25/2017 patient is alert and oriented 3 in no apparent distress he is receiving hyperbaric oxygen therapy pain is well controlled. Otherwise he denies any other complaints no chest pain no shortness of breath no cough no nausea or vomiting no abdominal pain and no urinary symptoms Objective - Vital Signs Vital signs: Vital Signs Temp 97.1 F L 03/25/17 15:00 Pulse 85 03/25/17 15:00 Resp 18 03/25/17 15:00 BP 110/52 03/25/17 15:00 Pulse Ox 98 03/25/17 15:00 Intake & Output 03/24/17 03/25/17 03/25/17 18:59 06:59 18:59 Intake Total 200 Balance 200 Weight 81 kg Intake: Oral 200 Other: # Voids 0 0 1 # Bowel Movements 1 - Exam In general patient is alert and oriented 3 HEENT head normocephalic and atraumatic Neck is supple no JVD no goiter no lymphadenopathy Chest exam reveals a few scattered crackles bilaterally no wheezing Cardiac exam reveals regular heart sounds S1 and S2 no gallops no murmurs Abdomen is soft nontender no organomegaly with normal bowel sounds Extremity exam reveals no edema no cyanosis or clubbing, patient has bilateral lower extremity below knee amputation - Labs CBC & Chem 7: 03/25/17 08:21 03/25/17 08:21 Labs: Abnormal Lab Results - Last 24 Hours (Table) 03/24/17 03/24/17 03/25/17 Range/Units 21:08 23:00 07:19 RBC (4.30-5.90) m/uL Hgb (13.0-17.5) gm/dL Hct (39.0-53.0) % MCHC (31.0-37.0) g/dL RDW (11.5-15.5) % Lymphocytes # (1.0-4.8) k/uL Sodium (137-145) mmol/L Carbon Dioxide (22-30) mmol/L BUN (9-20) mg/dL Creatinine (0.66-1.25) mg/dL Glucose (74-99) mg/dL POC Glucose (mg/dL) 187 H 140 H 125 H (75-99) mg/dL Calcium (8.4-10.2) mg/dL AST (17-59) U/L Total Protein (6.3-8.2) g/dL Albumin (3.5-5.0) g/dL 03/25/17 03/25/17 03/25/17 Range/Units 08:21 08:21 08:50 RBC 3.62 L (4.30-5.90) m/uL Hgb 9.8 L (13.0-17.5) gm/dL Hct 33.9 L (39.0-53.0) % MCHC 28.9 L (31.0-37.0) g/dL RDW 16.9 H (11.5-15.5) % Lymphocytes # 0.7 L (1.0-4.8) k/uL Sodium 134 L (137-145) mmol/L Carbon Dioxide 20 L (22-30) mmol/L BUN 38 H (9-20) mg/dL Creatinine 3.66 H (0.66-1.25) mg/dL Glucose 142 H (74-99) mg/dL POC Glucose (mg/dL) 242 H (75-99) mg/dL Calcium 8.2 L (8.4-10.2) mg/dL AST 65 H (17-59) U/L Total Protein 4.7 L (6.3-8.2) g/dL Albumin 2.1 L (3.5-5.0) g/dL 03/25/17 03/25/17 03/25/17 Range/Units 10:50 12:06 14:41 RBC (4.30-5.90) m/uL Hgb (13.0-17.5) gm/dL Hct (39.0-53.0) % MCHC (31.0-37.0) g/dL RDW (11.5-15.5) % Lymphocytes # (1.0-4.8) k/uL Sodium (137-145) mmol/L Carbon Dioxide (22-30) mmol/L BUN (9-20) mg/dL Creatinine (0.66-1.25) mg/dL Glucose (74-99) mg/dL POC Glucose (mg/dL) 225 H 131 H 259 H (75-99) mg/dL Calcium (8.4-10.2) mg/dL AST (17-59) U/L Total Protein (6.3-8.2) g/dL Albumin (3.5-5.0) g/dL 03/25/17 Range/Units 17:01 RBC (4.30-5.90) m/uL Hgb (13.0-17.5) gm/dL Hct (39.0-53.0) % MCHC (31.0-37.0) g/dL RDW (11.5-15.5) % Lymphocytes # (1.0-4.8) k/uL Sodium (137-145) mmol/L Carbon Dioxide (22-30) mmol/L BUN (9-20) mg/dL Creatinine (0.66-1.25) mg/dL Glucose (74-99) mg/dL POC Glucose (mg/dL) 112 H (75-99) mg/dL Calcium (8.4-10.2) mg/dL AST (17-59) U/L Total Protein (6.3-8.2) g/dL Albumin (3.5-5.0) g/dL Microbiology - Last 24 Hours (Table) 03/19/17 13:38 Blood Culture - Final Blood No Growth after 144 hours Assessment and Plan Plan: 1. Right stump infection with cellulitis and necrotic skin changes: Patient had recent right below the knee amputation on 02/26/[address] Dugan. Vascular surgery and infectious disease have been consulted. Evaluated by infectious disease. Started on Fortaz and vancomycin. Blood cultures remain negative. patient started the hyperbaric oxygen therapy today. He has treatments twice a day. Infectious disease is recommending 3 days of inpatient treatments. 2. Chronic kidney disease stage V with history of right kidney transplant secondary to his diabetes mellitus. He is currently on peritoneal dialysis. Nephrology following 3. Diabetes mellitus type 2. Order Humalog sliding scale 4. Chronic atrial fibrillation: Coumadin discontinued on previous admissions 5. History of peripheral vascular disease secondary to his diabetes mellitus and had required a left below the knee amputation 6. Gangrene and ulcer on the right foot status post right below the knee and dictation on 02/26/2017 7. Chronic systolic congestive heart failure: No evidence of exacerbation. 8. Anemia of chronic kidney disease with iron deficiency anemia 9. History of coronary artery disease with previous coronary artery bypass grafting 10. GI prophylaxis Protonix and DVT prophylaxis subcu heparin
[2017-03-25 20:48] LABS: Glucose,Whole Blood 277 mg/dL (75-99)
[2017-03-25] MEDS: ATORVASTATIN 80 MG TAB PO SCH (22:23)
[2017-03-25] MEDS: ASPIRIN 81 MG PO SCH (22:24)
[2017-03-25] MEDS: SODIUM CHLORIDE 0.9% 1,000 ML IV SCH (22:25)
[2017-03-25] MEDS: CHOLECALCIFEROL 1,000 UNIT TAB PO SCH (22:26)
[2017-03-25] MEDS: TEMAZEPAM 15 MG CAP PO SCH (22:29)
[2017-03-25 23:04] LABS: Glucose,Whole Blood 129 mg/dL (75-99)
[2017-03-25] MEDS: DIALYSIS (PERIT 1.5%) 2,000 ML 30 G/2,000 ML BAG INTRAPERIT SCH (23:09)
--- NOTE | 2017-03-25 23:33 | P.PN ---
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 His a long-standing history of diabetes mellitus type 2. Prior history of superobesity. Complications include peripheral vascular disease, end-stage renal disease on hemodialysis after renal transplantation as failed. He was recently hospitalized for was having increasing pain to the right foot. These having increasing dry gangrenous changes to the foot because he was taken the operating room for the right below-knee amputation. He's been cared for in the outpatient setting. He was seen by the vascular surgeon in the office and there was some concern as to the limb and consequently was admitted to hospital for antimicrobial therapy and intervention. At this time other than pain at the site he is denying other acute difficulties. He does have fatigue and malaise. He denies high-grade fevers chills rigors or sweats. The patient has now been started on hyperbaric oxygen therapy for his failed flap to the right below-knee amputation site. After his first 3 treatments of hyperbaric oxygen therapy there is further improvement to the site. Some improvement of the tissue quality is noted. He tolerated hyperbaric oxygen therapy well with the addition of Xanax. Objective - Vital Signs Vital signs: Vital Signs Temp 99 F 03/25/17 23:10 Pulse 89 03/25/17 23:10 Resp 18 03/25/17 23:10 BP 130/79 03/25/17 23:10 Pulse Ox 95 03/25/17 23:10 Intake & Output 03/25/17 03/25/17 03/26/17 06:59 18:59 06:59 Intake Total 200 50 Balance 200 50 Weight 81 kg 81 kg Intake: Intake, IV Titration 50 Amount cefTAZidime 1 gm In 50 Sodium Chloride 0.9% 50 ml @ 100 mls/hr IVPB DAILY@1800 [facility] Rx#: [id number] Oral 200 Other: # Voids 0 1 # Bowel Movements 1 - Exam Pleasant 61-year-old male presents to Hospital with significant change to his right foot. HEENT: Anicteric conjunctiva are pink and moist nasal mucosa grossly intact without significant lesions, there is no thrush. Neck: The neck is supple without significant lymphadenopathy or thyromegaly. Lungs: Good bilateral air entry without significant crackles or wheezing. There is no significant bronchial sounds. There is no egophony or dullness. Heart: Irregular with an audible S1 and S2. No S3 soft S4, 2/6 systolic murmur left sternal border is holosystolic. Abdomen: Positive bowel sounds soft and nontender without palpable masses or organomegaly. There was no guarding or rebound. Extremities: The prior shunt to the left arm is only minimal thrill and apparently is not functional for hemodialysis. The left lower extremity below the knee amputation residual limb is in good order. There is no erythema or crepitance or fluctuance. He wears a proofer and has no edema or lesions. The right lower extremity feels evidence of the recent below the knee amputation. There was evidence of a blister that is open with evidence of necrosis at its base. He is receiving saline oral hyperbaric oxygen treatments with some improvement in this area. Neuro: Awake alert oriented to person place and time. Doing well with Xanax. - Labs CBC & Chem 7: 03/25/17 08:21 03/25/17 08:21 Labs: Abnormal Lab Results - Last 24 Hours (Table) 03/25/17 03/25/17 03/25/17 Range/Units 07:19 08:21 08:21 RBC 3.62 L (4.30-5.90) m/uL Hgb 9.8 L (13.0-17.5) gm/dL Hct 33.9 L (39.0-53.0) % MCHC 28.9 L (31.0-37.0) g/dL RDW 16.9 H (11.5-15.5) % Lymphocytes # 0.7 L (1.0-4.8) k/uL Sodium 134 L (137-145) mmol/L Carbon Dioxide 20 L (22-30) mmol/L BUN 38 H (9-20) mg/dL Creatinine 3.66 H (0.66-1.25) mg/dL Glucose 142 H (74-99) mg/dL POC Glucose (mg/dL) 125 H (75-99) mg/dL Calcium 8.2 L (8.4-10.2) mg/dL AST 65 H (17-59) U/L Total Protein 4.7 L (6.3-8.2) g/dL Albumin 2.1 L (3.5-5.0) g/dL 03/25/17 03/25/17 03/25/17 Range/Units 08:50 10:50 12:06 RBC (4.30-5.90) m/uL Hgb (13.0-17.5) gm/dL Hct (39.0-53.0) % MCHC (31.0-37.0) g/dL RDW (11.5-15.5) % Lymphocytes # (1.0-4.8) k/uL Sodium (137-145) mmol/L Carbon Dioxide (22-30) mmol/L BUN (9-20) mg/dL Creatinine (0.66-1.25) mg/dL Glucose (74-99) mg/dL POC Glucose (mg/dL) 242 H 225 H 131 H (75-99) mg/dL Calcium (8.4-10.2) mg/dL AST (17-59) U/L Total Protein (6.3-8.2) g/dL Albumin (3.5-5.0) g/dL 03/25/17 03/25/17 03/25/17 Range/Units 14:41 17:01 20:37 RBC (4.30-5.90) m/uL Hgb (13.0-17.5) gm/dL Hct (39.0-53.0) % MCHC (31.0-37.0) g/dL RDW (11.5-15.5) % Lymphocytes # (1.0-4.8) k/uL Sodium (137-145) mmol/L Carbon Dioxide (22-30) mmol/L BUN (9-20) mg/dL Creatinine (0.66-1.25) mg/dL Glucose (74-99) mg/dL POC Glucose (mg/dL) 259 H 112 H 277 H (75-99) mg/dL Calcium (8.4-10.2) mg/dL AST (17-59) U/L Total Protein (6.3-8.2) g/dL Albumin (3.5-5.0) g/dL 03/25/17 Range/Units 23:01 RBC (4.30-5.90) m/uL Hgb (13.0-17.5) gm/dL Hct (39.0-53.0) % MCHC (31.0-37.0) g/dL RDW (11.5-15.5) % Lymphocytes # (1.0-4.8) k/uL Sodium (137-145) mmol/L Carbon Dioxide (22-30) mmol/L BUN (9-20) mg/dL Creatinine (0.66-1.25) mg/dL Glucose (74-99) mg/dL POC Glucose (mg/dL) 129 H (75-99) mg/dL Calcium (8.4-10.2) mg/dL AST (17-59) U/L Total Protein (6.3-8.2) g/dL Albumin (3.5-5.0) g/dL Microbiology - Last 24 Hours (Table) 03/19/17 13:38 Blood Culture - Final Blood No Growth after 144 hours Laboratory Results WBC 5.8 k/uL (3.8-10.6) 03/25/17 08:21 RBC 3.62 m/uL (4.30-5.90) L 03/25/17 08:21 Hgb 9.8 gm/dL (13.0-17.5) L 03/25/17 08:21 Hct 33.9 % (39.0-53.0) L 03/25/17 08:21 MCV 93.6 fL (80.0-100.0) 03/25/17 08:21 MCH 27.0 pg (25.0-35.0) 03/25/17 08:21 MCHC 28.9 g/dL (31.0-37.0) L 03/25/17 08:21 RDW 16.9 % (11.5-15.5) H 03/25/17 08:21 Plt Count 313 k/uL (150-450) 03/25/17 08:21 Neutrophils % 76 % 03/25/17 08:21 Lymphocytes % 13 % 03/25/17 08:21 Monocytes % 8 % 03/25/17 08:21 Eosinophils % 1 % 03/25/17 08:21 Basophils % 0 % 03/25/17 08:21 Neutrophils # 4.5 k/uL (1.3-7.7) 03/25/17 08:21 Lymphocytes # 0.7 k/uL (1.0-4.8) L 03/25/17 08:21 Monocytes # 0.5 k/uL (0-1.0) 03/25/17 08:21 Eosinophils # 0.1 k/uL (0-0.7) 03/25/17 08:21 Basophils # 0.0 k/uL (0-0.2) 03/25/17 08:21 Hypochromasia Marked 03/25/17 08:21 Anisocytosis Slight 03/25/17 08:21 Sodium 134 mmol/L (137-145) L 03/25/17 08:21 Potassium 4.4 mmol/L (3.5-5.1) 03/25/17 08:21 Chloride 103 mmol/L (98-107) 03/25/17 08:21 Carbon Dioxide 20 mmol/L (22-30) L 03/25/17 08:21 Anion Gap 11 mmol/L 03/25/17 08:21 BUN 38 mg/dL (9-20) H 03/25/17 08:21 Creatinine 3.66 mg/dL (0.66-1.25) H 03/25/17 08:21 Est GFR (MDRD) Af Amer 21 (>60 ml/min/1.73 sqM) 03/25/17 08:21 Est GFR (MDRD) Non-Af 17 (>60 ml/min/1.73 sqM) 03/25/17 08:21 Glucose 142 mg/dL (74-99) H 03/25/17 08:21 POC Glucose (mg/dL) 129 mg/dL (75-99) H 03/25/17 23:01 POC Glu [employer] Professional ID Migdalia Waterman 03/25/17 23:[address] Glu mg/dL 140 mg/dL 03/19/17 13:38 Hemoglobin A1c 6.5 % (4.2-6.1) H 03/19/17 13:38 Calcium 8.2 mg/dL (8.4-10.2) L 03/25/17 08:21 Phosphorus 5.5 mg/dL (2.5-4.5) H 03/20/17 09:16 Iron 40 ug/dL (49-181) L 03/20/17 09:16 TIBC 175 ug/dL (228-460) L 03/20/17 09:00 Iron Saturation 22.29 (15.00-50.00) 03/20/17 09:00 Ferritin 690.5 ng/mL (22.0-322.0) H 03/20/17 09:00 Total Bilirubin 0.2 mg/dL (0.2-1.3) 03/25/17 08:21 AST 65 U/L (17-59) H 03/25/17 08:21 ALT 42 U/L (21-72) 03/25/17 08:21 Alkaline Phosphatase 77 U/L (38-126) 03/25/17 08:21 Total Protein 4.7 g/dL (6.3-8.2) L 03/25/17 08:21 Albumin 2.1 g/dL (3.5-5.0) L 03/25/17 08:21 Random Vancomycin 18.4 ug/mL 03/25/17 08:21 Microbiology 03/19/17 13:38 Blood Blood Culture - Final No Growth after 144 hours Assessment and Plan (1) Diabetes mellitus type 2, controlled, with complications Current Visit: No Status: Acute Code(s): E11.8 - TYPE 2 DIABETES MELLITUS WITH UNSPECIFIED COMPLICATIONS SNOMED Code(s): 99332144 (2) Cellulitis of leg, right Narrative/Plan: Pleasant 61-year-old male presents to Hospital from the extended care facility after being seen by his vascular surgeon with concerns to the residual limb of the right side. He underwent a recent [id number] amputation and there was some concern to blister that formed on the most distal aspect of the stump. Consequently was admitted to hospital ID consult was requested. At this time intravenous antimicrobial therapy is initiated with ceftazidime and vancomycin based on prior cultures. Cultures are in process. The patient is been initiated with hyperbaric oxygen therapy. He is now had a couple treatments and is tolerating it well with utilization of Xanax. The flap seems to be tolerating hyperbaric oxygen therapy while showing some improvement. We'll plan twice a day treatments for the next day and continue to monitor closely. Current Visit: Yes Status: Acute Code(s): L03.115 - CELLULITIS OF RIGHT LOWER LIMB SNOMED Code(s): 078202774 (3) Necrosis of amputation stump, right lower extremity Current Visit: Yes Status: Acute Code(s): T87.53 - NECROSIS OF AMPUTATION STUMP, RIGHT LOWER EXTREMITY SNOMED Code(s): 082666939
[2017-03-26] MEDS: DIALYSIS (PERIT 2.5%) 2,000 ML 50 G/2,000 ML BAG INTRAPERIT SCH ×3 (05:01→17:55)
[2017-03-26] MEDS: HYDROcodone/APAP 7.5-325MG 1 EACH TAB PO PRN ×4 (05:03→21:26)
[2017-03-26 07:27] LABS: Anisocytosis Slight; Basophils % (A) 0 %; CH 26.7; CHCM 28.4; Eosinophils # (A) 0.1 k/uL (0-0.7); Eosinophils % (A) 1 %; HCT 35.1 % (39.0-53.0); HDW 3.01; Hypochromasia Marked; Luc # (Auto) 0.14; Luc % (Auto) 3; Lymphocytes # (A) 1.1 k/uL (1.0-4.8); Lymphocytes % (A) 20 %; MCH 27.1 pg (25.0-35.0); MCHC 28.6 g/dL (31.0-37.0); MCV 94.8 fL (80.0-100.0); Mean Platelet Volume 7.4; Monocytes # (A) 0.4 k/uL (0-1.0); Monocytes % (A) 8 %; Neutrophils # (A) 3.6 k/uL (1.3-7.7); Neutrophils % (A) 67 %; RDW 16.5 % (11.5-15.5); WBC 5.3 k/uL (3.8-10.6); WBC (Perox) 5.04
[2017-03-26 07:34] LABS: Glucose,Whole Blood 99 mg/dL (75-99)
[2017-03-26 07:52] LABS: Calcium 7.9 mg/dL (8.4-10.2); Potassium 4.3 mmol/L (3.5-5.1); Total Bilirubin 0.3 mg/dL (0.2-1.3); Total Protein 4.7 g/dL (6.3-8.2)
[2017-03-26] MEDS: INSULIN LISPRO (humaLOG) 300 UNIT/3 ML VIAL SQ SCH ×4 (08:10→21:30)
[2017-03-26] MEDS: MIDODRINE 5 MG TAB PO SCH (08:13)
[2017-03-26] MEDS: PANTOPRAZOLE 40 MG TABLET PO SCH (08:14)
[2017-03-26] MEDS: GABAPENTIN 300 MG CAP PO SCH ×2 (08:14→21:30)
[2017-03-26] MEDS: SODIUM BICARBONATE TAB 650 MG TAB PO SCH ×2 (08:14→21:29)
[2017-03-26] MEDS: CLOPIDOGREL 75 MG TAB PO SCH (08:14)
[2017-03-26] MEDS: VIT A,C & E-LUTEIN-MINERALS 1 EACH TAB PO SCH ×2 (08:14→21:29)
[2017-03-26] MEDS: FERROUS SULFATE 325 MG TAB PO SCH ×2 (08:14→21:29)
[2017-03-26] MEDS: FUROSEMIDE 20 MG TAB PO SCH ×2 (08:14→17:25)
[2017-03-26] MEDS: DOCUSATE 100 MG CAP PO SCH ×2 (08:14→21:29)
[2017-03-26] MEDS: HEPARIN SODIUM,PORCINE 5,000 UNIT/ML 1 ML VIAL SQ SCH ×2 (08:15→21:29)
[2017-03-26] MEDS: TACROLIMUS 1 MG CAP PO SCH ×2 (08:15→21:29)
[2017-03-26] MEDS: ALPRAZolam 0.5 MG TAB PO PRN ×2 (08:26→14:28)
[2017-03-26] MEDS: POLYETHYLENE GLYCOL 3350 17 GM POWD.PACK PO SCH (08:27)
[2017-03-26 08:43] LABS: Glucose,Whole Blood 316 mg/dL (75-99)
[2017-03-26 10:49] LABS: Glucose,Whole Blood 177 mg/dL (75-99)
--- NOTE | 2017-03-26 11:34 | P.PN ---
Subjective Patient is seen in follow-up for end-stage renal disease. He is maintained on peritoneal dialysis. Patient had right BKA done in February 2017. Patient presented with infection at the stump site. He is current maintained on IV antibiotics. He is also started hyperbaric oxygen therapy and seems to be tolerating it well. No issues with peritoneal dialysis. No abdominal pain. Denies constipation. Oral intake is good. No active complaints at this time. Vital signs are stable. General: The patient appeared well nourished and normally developed. HEENT: Head exam is unremarkable. Neck is without jugular venous distension. LUNGS: Lungs are clear to auscultation and percussion. Breath sounds decreased. HEART: Rate and Rhythm are regular. First and second heart sounds normal. No murmurs, rubs or gallops. ABDOMEN: Abdominal exam reveals normal bowel sounds. Non-tender and non- distended. No evidence of peritonitis. EXTREMITITES: No clubbing, cyanosis, or edema. Bilateral below the knee amputation noted. No obvious drainage from stump site. Objective - Vital Signs Vital signs: Vital Signs Temp 96.5 F L 03/26/17 07:00 Pulse 96 03/26/17 07:00 Resp 19 03/26/17 07:00 BP 112/75 03/26/17 07:00 Pulse Ox 95 03/26/17 07:00 Intake & Output 03/25/17 03/26/17 03/26/17 18:59 06:59 18:59 Intake Total 50 760 Output Total 550 Balance 50 210 Weight 80 kg Intake: IV 160 Sodium Chloride 0.9% 1, 160 000 ml @ 20 mls/hr IV . Q24H [facility] Rx#:[id number] Intake, IV Titration 50 Amount cefTAZidime 1 gm In 50 Sodium Chloride 0.9% 50 ml @ 100 mls/hr IVPB DAILY@1800 [facility] Rx#: [id number] Oral 600 Output: Urine 550 Other: # Voids 1 # Bowel Movements 1 - Labs CBC & Chem 7: 03/26/17 07:14 03/26/17 07:14 Labs: Abnormal Lab Results - Last 24 Hours (Table) 03/25/17 03/25/17 03/25/17 Range/Units 10:50 12:06 14:41 RBC (4.30-5.90) m/uL Hgb (13.0-17.5) gm/dL Hct (39.0-53.0) % MCHC (31.0-37.0) g/dL RDW (11.5-15.5) % Sodium (137-145) mmol/L Carbon Dioxide (22-30) mmol/L BUN (9-20) mg/dL Creatinine (0.66-1.25) mg/dL POC Glucose (mg/dL) 225 H 131 H 259 H (75-99) mg/dL Calcium (8.4-10.2) mg/dL Total Protein (6.3-8.2) g/dL Albumin (3.5-5.0) g/dL 03/25/17 03/25/17 03/25/17 Range/Units 17:01 20:37 23:01 RBC (4.30-5.90) m/uL Hgb (13.0-17.5) gm/dL Hct (39.0-53.0) % MCHC (31.0-37.0) g/dL RDW (11.5-15.5) % Sodium (137-145) mmol/L Carbon Dioxide (22-30) mmol/L BUN (9-20) mg/dL Creatinine (0.66-1.25) mg/dL POC Glucose (mg/dL) 112 H 277 H 129 H (75-99) mg/dL Calcium (8.4-10.2) mg/dL Total Protein (6.3-8.2) g/dL Albumin (3.5-5.0) g/dL 03/26/17 03/26/17 03/26/17 Range/Units 07:14 07:14 08:41 RBC 3.70 L (4.30-5.90) m/uL Hgb 10.0 L (13.0-17.5) gm/dL Hct 35.1 L (39.0-53.0) % MCHC 28.6 L (31.0-37.0) g/dL RDW 16.5 H (11.5-15.5) % Sodium 134 L (137-145) mmol/L Carbon Dioxide 18 L (22-30) mmol/L BUN 39 H (9-20) mg/dL Creatinine 3.66 H (0.66-1.25) mg/dL POC Glucose (mg/dL) 316 H (75-99) mg/dL Calcium 7.9 L (8.4-10.2) mg/dL Total Protein 4.7 L (6.3-8.2) g/dL Albumin 2.1 L (3.5-5.0) g/dL 03/26/17 Range/Units 10:48 RBC (4.30-5.90) m/uL Hgb (13.0-17.5) gm/dL Hct (39.0-53.0) % MCHC (31.0-37.0) g/dL RDW (11.5-15.5) % Sodium (137-145) mmol/L Carbon Dioxide (22-30) mmol/L BUN (9-20) mg/dL Creatinine (0.66-1.25) mg/dL POC Glucose (mg/dL) 177 H (75-99) mg/dL Calcium (8.4-10.2) mg/dL Total Protein (6.3-8.2) g/dL Albumin (3.5-5.0) g/dL Microbiology - Last 24 Hours (Table) 03/19/17 13:38 Blood Culture - Final Blood No Growth after 144 hours Assessment and Plan Plan: Assessment: #1. End-stage renal disease maintained on peritoneal dialysis. #2. Status post right [id number] amputation with cellulitis of the stump site. #3. 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 Now being weaned off immunosuppression. #4. History of left below the knee amputation. #5. Diabetes mellitus. #6. Anemia of chronic kidney disease. Plan: Continue with 2.5 L exchanges every 6 hours for 2.5% dextrose solution. Maintain Aranesp. Maintain oral sodium bicarbonate supplementation. Vascular surgery following. Antibiotics per infectious disease recommendations. Continue with Prograf. Myfortic has been discontinued.
--- NOTE | 2017-03-26 12:23 | P.PN ---
Subjective Progress Note Date: 03/26/17 This is a 61-year-old male with a known past medical history of chronic renal failure with right kidney transplant on peritoneal dialysis. He also has a history of coronary artery disease with previous coronary bypass grafting, atrial fibrillation, DVT of the lower extremity with Thompson filter placed, hypertension, hyperlipidemia, diabetes mellitus type 2, peripheral vascular disease, left BKA and a recent right below the knee amputation on 02/26/2017. Patient had been at [facility] for rehabilitation. He went to a routine follow-up with Dr. Dugan. He has some evidence of cellulitis on his stump around the incision site. The incision site there is necrotic changes. Also there is a blister on the bottom of the stump. And again a purplish color around the blister connecting to the incision. There is tender with palpation of the stump. Patient was told by Dr. Dugan to be admitted to the hospital. Patient was a direct admit from Dr. Mosquera's office. He denies any fever, chills, sweats. He's had a couple episodes of vomiting. Denies any chest pain or shortness of breath. Denies any burning with urination. Denies any significant drainage from the stump. Patient has been admitted to the hospital for infection in the stump of his right leg. Antibiotics will be ordered by infectious disease. Infectious disease, vascular surgery and nephrology have been consulted. 03/20/2017 patient still having pain in the right stump. Still some redness noted. Patient's evaluated by infectious disease. They have him on Fortaz and vancomycin. Patient is lightly wheezy today but denies any shortness of breath or chest pain. He is complaining that his dialysis catheter might be obstructed. He was unable to place all the fluid in and is having some difficulty getting fluid out. 03/23/2017 patient lying in bed comfortably. He reports no pain. Remains on IV antibiotics. Awaiting infectious disease recommendations in regards to a possible hyperbaric oxyegen therapy for his leg 03/24/2017 patient started the hyperbaric oxygen therapy today. Pain is tolerable. Denies any chest pain or shortness breath. Denies any nausea or vomiting. She denies any bowel movement changes or urinary symptoms. 03/26/2017 patient had hyperbaric oxygen treatment this morning. Showing improvement. Anticipating discharge tomorrow. No complaints Objective - Vital Signs Vital signs: Vital Signs Temp 96.5 F L 03/26/17 07:00 Pulse 96 03/26/17 07:00 Resp 19 03/26/17 07:00 BP 112/75 03/26/17 07:00 Pulse Ox 95 03/26/17 07:00 Intake & Output 03/25/17 03/26/17 03/26/17 18:59 06:59 18:59 Intake Total 50 760 Output Total 550 Balance 50 210 Weight 80 kg Intake: IV 160 Sodium Chloride 0.9% 1, 160 000 ml @ 20 mls/hr IV . Q24H [facility] Rx#:[id number] Intake, IV Titration 50 Amount cefTAZidime 1 gm In 50 Sodium Chloride 0.9% 50 ml @ 100 mls/hr IVPB DAILY@1800 [facility] Rx#: [id number] Oral 600 Output: Urine 550 Other: # Voids 1 # Bowel Movements 1 - Exam Head normocephalic Neck supple Lungs fair to auscultation Heart regular rate and rhythm S1-S2, no rub or gallop Abdomen is soft nontender nondistended positive bowel sounds no hepatosplenomegaly Extremities Right stump evidence of cellulitis with erythema near the incision site. It is warm and tender to touch. The incision site also has black tissue. There is a blister on the distal aspect of the stump. Neuro alert and orientated to 3 - Labs CBC & Chem 7: 03/26/17 07:14 03/26/17 07:14 Labs: Abnormal Lab Results - Last 24 Hours (Table) 03/25/17 03/25/17 03/25/17 Range/Units 12:06 14:41 17:01 RBC (4.30-5.90) m/uL Hgb (13.0-17.5) gm/dL Hct (39.0-53.0) % MCHC (31.0-37.0) g/dL RDW (11.5-15.5) % Sodium (137-145) mmol/L Carbon Dioxide (22-30) mmol/L BUN (9-20) mg/dL Creatinine (0.66-1.25) mg/dL POC Glucose (mg/dL) 131 H 259 H 112 H (75-99) mg/dL Calcium (8.4-10.2) mg/dL Total Protein (6.3-8.2) g/dL Albumin (3.5-5.0) g/dL 03/25/17 03/25/17 03/26/17 Range/Units 20:37 23:01 07:14 RBC 3.70 L (4.30-5.90) m/uL Hgb 10.0 L (13.0-17.5) gm/dL Hct 35.1 L (39.0-53.0) % MCHC 28.6 L (31.0-37.0) g/dL RDW 16.5 H (11.5-15.5) % Sodium (137-145) mmol/L Carbon Dioxide (22-30) mmol/L BUN (9-20) mg/dL Creatinine (0.66-1.25) mg/dL POC Glucose (mg/dL) 277 H 129 H (75-99) mg/dL Calcium (8.4-10.2) mg/dL Total Protein (6.3-8.2) g/dL Albumin (3.5-5.0) g/dL 03/26/17 03/26/17 03/26/17 Range/Units 07:14 08:41 10:48 RBC (4.30-5.90) m/uL Hgb (13.0-17.5) gm/dL Hct (39.0-53.0) % MCHC (31.0-37.0) g/dL RDW (11.5-15.5) % Sodium 134 L (137-145) mmol/L Carbon Dioxide 18 L (22-30) mmol/L BUN 39 H (9-20) mg/dL Creatinine 3.66 H (0.66-1.25) mg/dL POC Glucose (mg/dL) 316 H 177 H (75-99) mg/dL Calcium 7.9 L (8.4-10.2) mg/dL Total Protein 4.7 L (6.3-8.2) g/dL Albumin 2.1 L (3.5-5.0) g/dL Microbiology - Last 24 Hours (Table) 03/19/17 13:38 Blood Culture - Final Blood No Growth after 144 hours Assessment and Plan Plan: 1. Right stump infection with cellulitis and necrotic skin changes: Patient had recent right below the knee amputation on 02/26/[address] Dugan. Vascular surgery and infectious disease have been consulted. Evaluated by infectious disease. Started on Fortaz and vancomycin. Blood cultures remain negative. patient started the hyperbaric oxygen therapy today. He has treatments twice a day. Case discussed with Dr. Nino. Anticipating discharge possibly tomorrow. 2. Chronic kidney disease stage V with history of right kidney transplant secondary to his diabetes mellitus. He is currently on peritoneal dialysis. Nephrology following 3. Diabetes mellitus type 2. Order Humalog sliding scale 4. Chronic atrial fibrillation: Coumadin discontinued on previous admissions 5. History of peripheral vascular disease secondary to his diabetes mellitus and had required a left below the knee amputation 6. Gangrene and ulcer on the right foot status post right below the knee and dictation on 02/26/2017 7. Chronic systolic congestive heart failure: No evidence of exacerbation. 8. Anemia of chronic kidney disease with iron deficiency anemia 9. History of coronary artery disease with previous coronary artery bypass grafting GI prophylaxis Protonix and DVT prophylaxis subcu heparin I performed an examination of the patient and discussed their management with the physician Rn Midwife. I have reviewed the Physician Rn Midwife's notes and agree with the documented findings and plan of care
[2017-03-26 13:13] LABS: Glucose,Whole Blood 214 mg/dL (75-99)
[2017-03-26] MEDS: CALCITRIOL 0.25 MCG CAP PO SCH (13:40)
[2017-03-26 14:34] VITALS: BMI 22.6
[2017-03-26 14:47] LABS: Glucose,Whole Blood 229 mg/dL (75-99)
[2017-03-26 16:38] LABS: Glucose,Whole Blood 83 mg/dL (75-99)
[2017-03-26 21:01] LABS: Glucose,Whole Blood 136 mg/dL (75-99)
--- NOTE | 2017-03-26 21:11 | P.PN ---
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 His a long-standing history of diabetes mellitus type 2. Prior history of superobesity. Complications include peripheral vascular disease, end-stage renal disease on hemodialysis after renal transplantation as failed. He was recently hospitalized for was having increasing pain to the right foot. These having increasing dry gangrenous changes to the foot because he was taken the operating room for the right below-knee amputation. He's been cared for in the outpatient setting. He was seen by the vascular surgeon in the office and there was some concern as to the limb and consequently was admitted to hospital for antimicrobial therapy and intervention. At this time other than pain at the site he is denying other acute difficulties. He does have fatigue and malaise. He denies high-grade fevers chills rigors or sweats. The patient has now been started on hyperbaric oxygen therapy for his failed flap to the right below-knee amputation site. After his first 3 treatments of hyperbaric oxygen therapy there is further improvement to the site. Some improvement of the tissue quality is noted. He tolerated hyperbaric oxygen therapy well with the addition of Xanax. showing further improvement today. Much more comfortable. Objective - Vital Signs Vital signs: Vital Signs Temp 97.3 F L 03/26/17 17:50 Pulse 80 03/26/17 17:50 Resp 20 03/26/17 17:50 BP 147/76 03/26/17 17:50 Pulse Ox 95 03/26/17 17:50 Intake & Output 03/26/17 03/26/17 03/27/17 06:59 18:59 06:59 Intake Total 760 Output Total 550 Balance 210 Weight 80 kg 80 kg Intake: IV 160 Sodium Chloride 0.9% 1, 160 000 ml @ 20 mls/hr IV . Q24H [facility] Rx#:[id number] Oral 600 Output: Urine 550 Other: # Voids 4 - Exam Jasbir 61-year-old male presents to Hospital with significant change to his right foot. HEENT: Anicteric conjunctiva are pink and moist nasal mucosa grossly intact without significant lesions, there is no thrush. Neck: The neck is supple without significant lymphadenopathy or thyromegaly. Lungs: Good bilateral air entry without significant crackles or wheezing. There is no significant bronchial sounds. There is no egophony or dullness. Heart: Irregular with an audible S1 and S2. No S3 soft S4, 2/6 systolic murmur left sternal border is holosystolic. Abdomen: Positive bowel sounds soft and nontender without palpable masses or organomegaly. There was no guarding or rebound. Extremities: The prior shunt to the left arm is only minimal thrill and apparently is not functional for hemodialysis. The left lower extremity below the knee amputation residual limb is in good order. There is no erythema or crepitance or fluctuance. He wears a steel erector apprentice and has no edema or lesions. The right lower extremity feels evidence of the recent below the knee amputation. There was evidence of a blister that is open with evidence of necrosis at its base. He is receiving hyperbaric oxygen treatments with further improvement in this area.no further necrosis is evident. Neuro: Awake alert oriented to person place and time. Doing well with Xanax. - Labs CBC & Chem 7: 03/26/17 07:14 03/26/17 07:14 Labs: Abnormal Lab Results - Last 24 Hours (Table) 03/25/17 03/26/17 03/26/17 Range/Units 23:01 07:14 07:14 RBC 3.70 L (4.30-5.90) m/uL Hgb 10.0 L (13.0-17.5) gm/dL Hct 35.1 L (39.0-53.0) % MCHC 28.6 L (31.0-37.0) g/dL RDW 16.5 H (11.5-15.5) % Sodium 134 L (137-145) mmol/L Carbon Dioxide 18 L (22-30) mmol/L BUN 39 H (9-20) mg/dL Creatinine 3.66 H (0.66-1.25) mg/dL POC Glucose (mg/dL) 129 H (75-99) mg/dL Calcium 7.9 L (8.4-10.2) mg/dL Total Protein 4.7 L (6.3-8.2) g/dL Albumin 2.1 L (3.5-5.0) g/dL 03/26/17 03/26/17 03/26/17 Range/Units 08:41 10:48 12:37 RBC (4.30-5.90) m/uL Hgb (13.0-17.5) gm/dL Hct (39.0-53.0) % MCHC (31.0-37.0) g/dL RDW (11.5-15.5) % Sodium (137-145) mmol/L Carbon Dioxide (22-30) mmol/L BUN (9-20) mg/dL Creatinine (0.66-1.25) mg/dL POC Glucose (mg/dL) 316 H 177 H 214 H (75-99) mg/dL Calcium (8.4-10.2) mg/dL Total Protein (6.3-8.2) g/dL Albumin (3.5-5.0) g/dL 03/26/17 03/26/17 Range/Units 14:45 20:59 RBC (4.30-5.90) m/uL Hgb (13.0-17.5) gm/dL Hct (39.0-53.0) % MCHC (31.0-37.0) g/dL RDW (11.5-15.5) % Sodium (137-145) mmol/L Carbon Dioxide (22-30) mmol/L BUN (9-20) mg/dL Creatinine (0.66-1.25) mg/dL POC Glucose (mg/dL) 229 H 136 H (75-99) mg/dL Calcium (8.4-10.2) mg/dL Total Protein (6.3-8.2) g/dL Albumin (3.5-5.0) g/dL Laboratory Results WBC 5.3 k/uL (3.8-10.6) 03/26/17 07:14 RBC 3.70 m/uL (4.30-5.90) L 03/26/17 07:14 Hgb 10.0 gm/dL (13.0-17.5) L 03/26/17 07:14 Hct 35.1 % (39.0-53.0) L 03/26/17 07:14 MCV 94.8 fL (80.0-100.0) 03/26/17 07:14 MCH 27.1 pg (25.0-35.0) 03/26/17 07:14 MCHC 28.6 g/dL (31.0-37.0) L 03/26/17 07:14 RDW 16.5 % (11.5-15.5) H 03/26/17 07:14 Plt Count 326 k/uL (150-450) 03/26/17 07:14 Neutrophils % 67 % 03/26/17 07:14 Lymphocytes % 20 % 03/26/17 07:14 Monocytes % 8 % 03/26/17 07:14 Eosinophils % 1 % 03/26/17 07:14 Basophils % 0 % 03/26/17 07:14 Neutrophils # 3.6 k/uL (1.3-7.7) 03/26/17 07:14 Lymphocytes # 1.1 k/uL (1.0-4.8) 03/26/17 07:14 Monocytes # 0.4 k/uL (0-1.0) 03/26/17 07:14 Eosinophils # 0.1 k/uL (0-0.7) 03/26/17 07:14 Basophils # 0.0 k/uL (0-0.2) 03/26/17 07:14 Hypochromasia Marked 03/26/17 07:14 Anisocytosis Slight 03/26/17 07:14 Sodium 134 mmol/L (137-145) L 03/26/17 07:14 Potassium 4.3 mmol/L (3.5-5.1) 03/26/17 07:14 Chloride 104 mmol/L (98-107) 03/26/17 07:14 Carbon Dioxide 18 mmol/L (22-30) L 03/26/17 07:14 Anion Gap 12 mmol/L 03/26/17 07:14 BUN 39 mg/dL (9-20) H 03/26/17 07:14 Creatinine 3.66 mg/dL (0.66-1.25) H 03/26/17 07:14 Est GFR (MDRD) Af Amer 21 (>60 ml/min/1.73 sqM) 03/26/17 07:14 Est GFR (MDRD) Non-Af 17 (>60 ml/min/1.73 sqM) 03/26/17 07:14 Glucose 97 mg/dL (74-99) 03/26/17 07:14 POC Glucose (mg/dL) 136 mg/dL (75-99) H 03/26/17 20:59 POC Glu Watch And Clock Repair Clerk ID Gail Steven 03/26/17 20:[address] Glu mg/dL 140 mg/dL 03/19/17 13:38 Hemoglobin A1c 6.5 % (4.2-6.1) H 03/19/17 13:38 Calcium 7.9 mg/dL (8.4-10.2) L 03/26/17 07:14 Phosphorus 5.5 mg/dL (2.5-4.5) H 03/20/17 09:16 Iron 40 ug/dL (49-181) L 03/20/17 09:16 TIBC 175 ug/dL (228-460) L 03/20/17 09:00 Iron Saturation 22.29 (15.00-50.00) 03/20/17 09:00 Ferritin 690.5 ng/mL (22.0-322.0) H 03/20/17 09:00 Total Bilirubin 0.3 mg/dL (0.2-1.3) 03/26/17 07:14 AST 50 U/L (17-59) 03/26/17 07:14 ALT 42 U/L (21-72) 03/26/17 07:14 Alkaline Phosphatase 72 U/L (38-126) 03/26/17 07:14 Total Protein 4.7 g/dL (6.3-8.2) L 03/26/17 07:14 Albumin 2.1 g/dL (3.5-5.0) L 03/26/17 07:14 Random Vancomycin 18.4 ug/mL 03/25/17 08:21 Microbiology 03/19/17 13:38 Blood Blood Culture - Final No Growth after 144 hours Assessment and Plan (1) Diabetes mellitus type 2, controlled, with complications Current Visit: No Status: Acute Code(s): E11.8 - TYPE 2 DIABETES MELLITUS WITH UNSPECIFIED COMPLICATIONS SNOMED Code(s): 86652584 (2) Cellulitis of leg, right Narrative/Plan: Pleasant 61-year-old male presents to Hospital from the extended care facility after being seen by his vascular surgeon with concerns to the residual limb of the right side. He underwent a recent [id number] amputation and there was some concern to blister that formed on the most distal aspect of the stump. Consequently was admitted to hospital ID consult was requested. At this time intravenous antimicrobial therapy is initiated with ceftazidime and vancomycin based on prior cultures. Cultures are in process. The patient is been initiated with hyperbaric oxygen therapy. He is now had a couple treatments and is tolerating it well with utilization of Xanax. The flap seems to be tolerating hyperbaric oxygen therapy while showing some improvement. we'll received 2 hyperbaric oxygen therapies today. Plan 1 for tomorrow. After his treatment should be able to be discharged home on oral antimicrobial therapy and local wound care. Within follow up in the wound healing Center next week. Will not likely be able to receive outpatient hyperbaric oxygen therapy. Current Visit: Yes Status: Acute Code(s): L03.115 - CELLULITIS OF RIGHT LOWER LIMB SNOMED Code(s): 806978316 (3) Necrosis of amputation stump, right lower extremity Current Visit: Yes Status: Acute Code(s): T87.53 - NECROSIS OF AMPUTATION STUMP, RIGHT LOWER EXTREMITY SNOMED Code(s): 921884436
[2017-03-26] MEDS: ATORVASTATIN 80 MG TAB PO SCH (21:28)
[2017-03-26] MEDS: ASPIRIN 81 MG PO SCH (21:28)
[2017-03-26] MEDS: CHOLECALCIFEROL 1,000 UNIT TAB PO SCH (21:29)
[2017-03-26] MEDS: SODIUM CHLORIDE 0.9% 1,000 ML IV SCH (21:31)
[2017-03-26] MEDS: DIALYSIS (PERIT 1.5%) 2,000 ML 30 G/2,000 ML BAG INTRAPERIT SCH (22:38)
[2017-03-26] MEDS: TEMAZEPAM 15 MG CAP PO SCH (23:25)
[2017-03-27] MEDS: DIALYSIS (PERIT 2.5%) 2,000 ML 50 G/2,000 ML BAG INTRAPERIT SCH ×2 (05:45→11:14)
[2017-03-27 07:25] LABS: Glucose,Whole Blood 158 mg/dL (75-99)
[2017-03-27] MEDS: MIDODRINE 5 MG TAB PO SCH (07:45)
[2017-03-27] MEDS: VIT A,C & E-LUTEIN-MINERALS 1 EACH TAB PO SCH (07:45)
[2017-03-27] MEDS: HEPARIN SODIUM,PORCINE 5,000 UNIT/ML 1 ML VIAL SQ SCH (07:46)
[2017-03-27] MEDS: GABAPENTIN 300 MG CAP PO SCH (07:46)
[2017-03-27] MEDS: FUROSEMIDE 20 MG TAB PO SCH (07:46)
[2017-03-27] MEDS: DOCUSATE 100 MG CAP PO SCH (07:46)
[2017-03-27] MEDS: PANTOPRAZOLE 40 MG TABLET PO SCH (07:46)
[2017-03-27] MEDS: SODIUM BICARBONATE TAB 650 MG TAB PO SCH (07:46)
[2017-03-27] MEDS: POLYETHYLENE GLYCOL 3350 17 GM POWD.PACK PO SCH (07:46)
[2017-03-27] MEDS: FERROUS SULFATE 325 MG TAB PO SCH (07:46)
[2017-03-27] MEDS: TACROLIMUS 1 MG CAP PO SCH (07:46)
[2017-03-27] MEDS: CLOPIDOGREL 75 MG TAB PO SCH (07:46)
[2017-03-27] MEDS: INSULIN LISPRO (humaLOG) 300 UNIT/3 ML VIAL SQ SCH ×2 (07:47→12:22)
[2017-03-27] MEDS: HYDROcodone/APAP 7.5-325MG 1 EACH TAB PO PRN (07:52)
[2017-03-27] MEDS: ALPRAZolam 0.5 MG TAB PO PRN (07:53)
[2017-03-27 08:20] VITALS: BP 170/75; PULSE 74; RESP 20; TEMP 98.9
[2017-03-27 08:27] LABS: Glucose,Whole Blood 233 mg/dL (75-99)
[2017-03-27 10:46] LABS: Glucose,Whole Blood 126 mg/dL (75-99)
[2017-03-27] MEDS: CALCITRIOL 0.25 MCG CAP PO SCH (11:14)
[2017-03-27] MEDS: DARBEPOETIN ALFA 40 MCG/0.4 ML SYRINGE SQ SCH (11:21)
--- NOTE | 2017-03-27 11:21 | P.DS ---
Providers Date of admission: 03/19/17 12:20 Expected date of discharge: 03/27/17 Attending physician: Kyrie Mosquera Consults: 03/19/17 13:08 Consult Physician Stat Consulting Provider: Crissy Saini Consult Reason/Comments: capd Do you want consulting provider notified?: Yes 03/19/17 13:09 Consult Physician Urgent Consulting Provider: Maycol Nino Consult Reason/Comments: post-op infection Do you want consulting provider notified?: Yes 03/19/17 14:34 Consult Physician Routine Consulting Provider: Don Dugan Consult Reason/Comments: Right BKA infection Do you want consulting provider notified?: Yes Primary care physician: Kyrie Eveline [facility] Course: Discharge diagnosis 1. Right stump infection with cellulitis and necrotic skin changes: Patient had recent right below the knee amputation on 02/26/[address] Dugan. Vascular surgery and infectious disease have been consulted. Evaluated by infectious disease. Started on Fortaz and vancomycin. Blood cultures remain negative. patient started the hyperbaric oxygen therapy today. He has treatments twice a day. Case discussed with Dr. Nino. Patient is scheduled for discharge today. Awaiting infectious disease her condition for oral antibiotics. HBO treatments will be continued outpatient pending insurance authorization. Patient will follow-up with Dr. Nino in the wound care center. 2. Chronic kidney disease stage V with history of right kidney transplant secondary to his diabetes mellitus. He is currently on peritoneal dialysis. Nephrology following 3. Diabetes mellitus type 2. Order Humalog sliding scale 4. Chronic atrial fibrillation: Coumadin discontinued on previous admissions 5. History of peripheral vascular disease secondary to his diabetes mellitus and had required a left below the knee amputation 6. Gangrene and ulcer on the right foot status post right below the knee and dictation on 02/26/2017 7. Chronic systolic congestive heart failure: No evidence of exacerbation. 8. Anemia of chronic kidney disease with iron deficiency anemia 9. History of coronary artery disease with previous coronary artery bypass grafting Hospital course This is a 61-year-old male with a known past medical history of chronic renal failure with right kidney transplant on peritoneal dialysis. He also has a history of coronary artery disease with previous coronary bypass grafting, atrial fibrillation, DVT of the lower extremity with Melissa filter placed, hypertension, hyperlipidemia, diabetes mellitus type 2, peripheral vascular disease, left BKA and a recent right below the knee amputation on 02/26/2017. Patient had been at [facility] for rehabilitation. He went to a routine follow-up with Dr. Dugan. He has some evidence of cellulitis on his stump around the incision site. The incision site there is necrotic changes. Also there is a blister on the bottom of the stump. And again a purplish color around the blister connecting to the incision. There is tender with palpation of the stump. Patient was told by Dr. Dugan to be admitted to the hospital. Patient was a direct admit from Dr. Mosquera's office. He denies any fever, chills, sweats. He's had a couple episodes of vomiting. Denies any chest pain or shortness of breath. Denies any burning with urination. Denies any significant drainage from the stump. Patient has been admitted to the hospital for infection in the stump of his right leg. Antibiotics will be ordered by infectious disease. Infectious disease, vascular surgery and nephrology have been consulted. Patient was started on IV vancomycin and Fortaz. Been followed closely by both infectious disease and vascular surgery. Patient was able to start hyperbaric oxygen treatment. He had 3 days of treatment 2 times a day. There has been some improvement in the necrotic changes on the right stump. Continue with antibiotics per infectious disease recommendations. Continue with HBO treatments per infectious disease depending on insurance authorization. Patient is medical stable for discharge she is also been cleared by infectious disease for discharge. He'll follow-up with Dr. Nino in the wound care center. Please refer to chart for any further details. I performed an examination of the patient and discussed their management with the physician Shotblast Operator. I have reviewed the Physician Shotblast Operator's notes and agree with the documented findings and plan of care Patient Condition at Discharge: Stable Plan - Discharge Summary New Discharge Prescriptions: Continue Cholecalciferol [Vitamin D3] 5,000 mg PO HS Sodium Bicarbonate Tab 650 mg PO BID Tacrolimus [Prograf] 1 mg PO BID Magnesium Gluconate [Magonate] 500 mg PO DAILY Aspirin EC [Ecotrin Low Dose] 81 mg PO HS Atorvastatin [Lipitor] 80 mg PO HS Calcitriol 0.5 mcg PO DAILY Vit C/E/Zn/Coppr/Lutein/Zeaxan [Preservision Areds 2 Softgel] 1 cap PO BID INSULIN LISPRO (HumaLOG) [humaLOG] See Protocol SQ ACHS Mycophenolate Sodium Dr [Myfortic] 360 mg PO DAILY Ferrous Sulfate [Feosol] 325 mg PO BID #60 tab Renaplex D Vitamin 1 tab PO DAILY Midodrine HCl [ProAmatine] 5 mg PO DAILY Furosemide [Lasix] 20 mg PO BID Clopidogrel [Plavix] 75 mg PO DAILY #30 tab Docusate [Colace] 100 mg PO BID cap Gabapentin [Neurontin] 300 mg PO BID #60 cap HYDROcodone/APAP 7.5-325MG [Minerva 7.5-325] 1 tab PO Q4H PRN #40 tab PRN Reason: Pain Temazepam [Restoril] 15 mg PO HS #30 Polyethylene Glycol 3350 [Miralax] 17 gm PO DAILY #30 packet Discharge Medication List Cholecalciferol [Vitamin D3] 5,000 mg PO HS 05/17/14 [History] Sodium Bicarbonate Tab 650 mg PO BID 05/17/14 [History] Tacrolimus [Prograf] 1 mg PO BID 12/06/14 [History] Magnesium Gluconate [Magonate] 500 mg PO DAILY 02/01/15 [History] Aspirin EC [Ecotrin Low Dose] 81 mg PO HS 02/12/16 [History] Atorvastatin [Lipitor] 80 mg PO HS 02/12/16 [History] Calcitriol 0.5 mcg PO DAILY 02/12/16 [History] Vit C/E/Zn/Coppr/Lutein/Zeaxan [Preservision Areds 2 Softgel] 1 cap PO BID 02/11 [History] INSULIN LISPRO (HumaLOG) [humaLOG] See Protocol SQ ACHS 07/19/16 [History] Mycophenolate Sodium Dr [Myfortic] 360 mg PO DAILY 09/15/16 [History] Ferrous Sulfate [Feosol] 325 mg PO BID #60 tab 12/22/16 [Rx] Furosemide [Lasix] 20 mg PO BID 01/01/17 [History] Midodrine HCl [ProAmatine] 5 mg PO DAILY 01/01/17 [History] Renaplex D Vitamin 1 tab PO DAILY 01/01/17 [History] Clopidogrel [Plavix] 75 mg PO DAILY #30 tab 01/10/17 [Rx] Docusate [Colace] 100 mg PO BID cap 03/03/17 [Rx] Gabapentin [Neurontin] 300 mg PO BID #60 cap 03/03/17 [Rx] HYDROcodone/APAP 7.5-325MG [Minerva 7.5-325] 1 tab PO Q4H PRN #40 tab 03/03/17 [Rx ] Polyethylene Glycol 3350 [Miralax] 17 gm PO DAILY #30 packet 03/03/17 [Rx] Temazepam [Restoril] 15 mg PO HS #30 03/03/17 [Rx] Follow up Appointment(s)/Referral(s): Maycol Nino MD [STAFF PHYSICIAN] - 1 Week (in Wound Center) [facility], [NON-STAFF] - Kyrie Mosquera MD [Primary Care Provider] - 1 Week Patient Instructions/Handouts: Heart Failure (DC), Type 2 Diabetes in Adults ( DC) Activity/Diet/Wound Care/Special Instructions: Diet: regular Activity: as tolerated antibiotics per infectious disease Discharge Disposition: HOME WITH HOME HEALTH SERVICES
[2017-03-27 12:00] LABS: Anisocytosis Slight; Basophils % (A) 0 %; CHCM 28.9; Eosinophils % (A) 0 %; HCT 35.1 % (39.0-53.0); HDW 3.06; Hypochromasia Marked; Luc # (Auto) 0.11; Luc % (Auto) 2; Lymphocytes # (A) 0.6 k/uL (1.0-4.8); Lymphocytes % (A) 10 %; MCHC 28.6 g/dL (31.0-37.0); MCV 94.2 fL (80.0-100.0); Mean Platelet Volume 7.9; Monocytes # (A) 0.4 k/uL (0-1.0); Monocytes % (A) 7 %; Neutrophils # (A) 4.8 k/uL (1.3-7.7); Neutrophils % (A) 80 %; RBC 3.72 m/uL (4.30-5.90); RDW 16.6 % (11.5-15.5); WBC (Perox) 5.96
[2017-03-27 12:04] LABS: Glucose,Whole Blood 108 mg/dL (75-99)
== END 2017-03-27 12:50 | disposition home health service (06) | DRG 564 ==
LOC: 4MS4W 12:20
PROVIDERS: ADMIT Internal Medicine; ATTEND Internal Medicine
DX: T87.53 Necrosis of amputation stump, right lower extremity (principal); N18.6 End stage renal disease; I13.2 Hypertensive heart and chronic kidney disease with heart failure and with stage 5 chronic kidney disease, or end stage renal disease; E11.22 Type 2 diabetes mellitus with diabetic chronic kidney disease; L03.115 Cellulitis of right lower limb; E11.51 Type 2 diabetes mellitus with diabetic peripheral angiopathy without gangrene; I50.22 Chronic systolic (congestive) heart failure; Z94.0 Kidney transplant status; I48.2 Chronic atrial fibrillation; D50.9 Iron deficiency anemia, unspecified; D63.1 Anemia in chronic kidney disease; E78.5 Hyperlipidemia, unspecified; H40.9 Unspecified glaucoma; I25.10 Atherosclerotic heart disease of native coronary artery without angina pectoris; I25.2 Old myocardial infarction; K21.9 Gastro-esophageal reflux disease without esophagitis; Y83.5 Amputation of limb(s) as the cause of abnormal reaction of the patient, or of later complication, without mention of misadventure at the time of the procedure; Z79.01 Long term (current) use of anticoagulants; Z79.02 Long term (current) use of antithrombotics/antiplatelets; Z79.82 Long term (current) use of aspirin; Z79.899 Other long term (current) drug therapy; Z83.3 Family history of diabetes mellitus; Z89.411 Acquired absence of right great toe; Z95.1 Presence of aortocoronary bypass graft; Z98.84 Bariatric surgery status; Z99.2 Dependence on renal dialysis; Z86.718 Personal history of other venous thrombosis and embolism; H54.61 Unqualified visual loss, right eye, normal vision left eye
CPT/HCPCS: 71020; 74020; 80053; 80202; 82728; 83036; 83540; 83550; 84100; 85025; 85027; 87040

== ENCOUNTER 2017-12-07 19:04 | Emergency (ER) | payer MEDICARE, BC ==
--- NOTE | 2017-12-07 19:31 | ED ---
Fall HPI - General Chief Complaint: Fall Stated Complaint: Fall Time Seen by Provider: 12/07/17 19:06 Source: patient, EMS, RN notes reviewed Mode of arrival: EMS - History of Present Illness Initial Comments: This is a 62-year-old male who presents to the emergency department with chief complaint of fall. Patient has bilateral lower extremity amputations below the knees. He does use a motorized wheelchair. At 4:30 this afternoon patient was using his motorized wheelchair in [place]. He thought that there was a ramp and he ended up driving the wheelchair down 3 steps. It flipped over and patient landed on his left side and the wheelchair landed on top of his prosthetic legs. Patient denies loss of consciousness, nausea or vomiting, headache or dizziness, back pain or neck pain. Bystanders witnessed the event and helped patient back into his chair. Patient then went home and his daughter cleaned up the abrasions on his hands with hydrogen peroxide and dressed them. Patient states that initially he was sore but felt fine. He has since developed left-sided rib pain and complains of pain to bilateral hands. Patient states that pain is increased when he takes a deep breath or coughs. Denies any other injury or trauma. Denies recent illnesses or infections. Patient is on dialysis and has home. Denies fevers or chills, chest pain or shortness of breath, abdominal pain. He does state that he has baseline low blood pressure. - Related Data Home Medications Medication Instructions Recorded Confirmed Tacrolimus [Prograf] 1 mg PO HS 12/06/14 12/07/17 Aspirin EC [Ecotrin Low Dose] 81 mg PO HS 02/12/16 12/07/17 Atorvastatin [Lipitor] 80 mg PO HS 02/12/16 12/07/17 Calcitriol 0.5 mcg PO MOWEFR 02/12/16 12/07/17 Vit C/E/Zn/Coppr/Lutein/Zeaxan 2 cap PO HS 02/12/16 12/07/17 [Preservision Areds 2 Softgel] INSULIN LISPRO (HumaLOG) [humaLOG] See Protocol SQ ACHS 07/19/16 12/07/17 Midodrine HCl [ProAmatine] 5 mg PO HS 01/01/17 12/07/17 Clopidogrel [Plavix] 75 mg PO HS 12/07/17 12/07/17 Docusate [Colace] 200 mg PO HS 12/07/17 12/07/17 Temazepam [Restoril] 30 mg PO HS PRN 12/07/17 12/07/17 Previous Rx's Medication Instructions Recorded Gabapentin [Neurontin] 300 mg PO TID #90 cap 06/02/17 Allergies Allergy/AdvReac Type Severity Reaction Status Date / Time codeine AdvReac Severe constipatio Verified 12/07/17 20:24 n Review of Systems ROS Statement: Those systems with pertinent positive or pertinent negative responses have been documented in the HPI. ROS Other: All systems not noted in ROS Statement are negative. 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 Other hx: TAKES NO CURRENT MEDS FOR THYROID, STATES HAS CURRENT KIDNEY TRANSPLANT THAT IS FAILING-has peritoneal dialysis. 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 Last Myocardial Infarction Date:: 2009 History of Any Multi-Drug Resistant Organisms: Acinetobacter (MDRO) Date of last positivie culture/infection: 02/23/17 MDRO Source:: FOOT Past Surgical History: Adenoidectomy, Bariatric Surgery, Coronary Bypass/CABG, Heart Catheterization, Tonsillectomy Additional Past Surgical History / Comment(s): jamarcus fliter, kidney transplant-X2,CABG-2010 TRIPLE, gastric bypass, RT great toe amputation , [facility], RIGHT carotid endarterectomy, amputation lt BKA,angioplasty to the popliteal artery and posterior left femoral artery performed by Dr. Fowler on , RECENT BX-PT BELIEVES IT WAS OF THE RT TEMPERAL ARTERY. Past Anesthesia/Blood Transfusion Reactions: No Reported Reaction Additional Past Anesthesia/Blood Transfusion Reaction / Comment(s): HX BLOOD TRANSFUSIONS- NO REACTIONS . Past Psychological History: No Psychological Hx Reported Smoking Status: Never smoker Past Alcohol Use History: None Reported Past Drug Use History: None Reported - Past Family History Father Family Medical History: Diabetes Mellitus, Dialysis Additional Family Medical History / Comment(s): "big heart", bilat BKA Mother Family Medical History: Cancer Additional Family Medical History / Comment(s): colon General Exam - General Exam Comments Initial Comments: General: Awake and alert, well-developed; in no apparent distress. HEENT: Head no cephalic. There is ecchymosis noted to the lateral left eye. No periorbital tenderness. No open lacerations. Pupils are equal, round and reactive to light. Extraocular movements intact. Oropharynx moist without erythema or exudate. Neck: Supple. Normal ROM. Cardiovascular: Regular rate and rhythm. No murmurs, rubs or gallops. Chest symmetrical. Tenderness on palpation of lateral mid left ribs. Respiratory: Lungs clear to auscultation bilaterally. No wheezes, rales or rhonchi. Normal respiratory effort with no use of accessory muscles. Musculoskeletal: Normal range of motion of bilateral hands and wrists. There is tenderness on palpation of the thenar eminence of the right hand and tenderness on palpation of the fifth MCP on the left hand. There are multiple superficial abrasions to the dorsal aspect of the left hand and a superficial abrasion to the palmar aspect of the right hand. Sensation is intact. Radial pulses are 2+ equal and palpable bilaterally. No obvious gross deformities or significant soft tissue swelling noted. Bilateral lower extremity amputations below the knees. Skin: [place], warm and dry with abrasions as noted above. No active bleeding. Neurological: Alert and oriented x3. CN II-XII grossly intact. Speech is fluent and answers are appropriate. No focal neuro deficits. Psychiatric: Normal mood and affect. No overt signs of depression or anxiety noted. Limitations: physical limitation Course Vital Signs 12/07/17 12/07/17 19:16 20:11 Temperature 98.1 F Pulse Rate 87 Respiratory 16 Rate Blood Pressure 136/79 O2 Sat by Pulse 98 Oximetry Medical Decision Making - Medical Decision Making This is a 62-year-old male who presented to the emergency department with chief complaint of fall injury. Patient has bilateral [id number] amputations. He does use a motorized wheelchair. Patient accidentally drove over a ledge down 3 stairs and the motorized chair fell on top of him at approximately 4:30 this afternoon. Patient was helped back into his chair and he returned home. Patient stated that he did hit the left side of his head. He states he is currently on Plavix. Denies loss of consciousness, nausea or vomiting, dizziness or headache. Computed tomography scan of the brain revealed no acute abnormalities. He complains of left-sided rib pain that increases with deep breathing and coughing. X-ray of chest and left ribs revealed evidence for a nondisplaced left fifth rib fracture. He has a complaint of bilateral hand pain. X-rays of bilateral hands reveal no acute abnormalities. Patient sustained superficial abrasions which were cleansed and dressed. Vital signs have been stable and patient is no acute distress. Recommend spirometry. Recommended Tylenol for pain relief. Patient will be discharged home at this time. He is in agreement with plan and voiced understanding. All questions answered. - Radiology Data Radiology results: report reviewed, image reviewed CT brain without contrast impression: Left internal capsule lacunar infarct. No acute intracranial abnormality. No change. Bilateral hand x-rays impression: No acute abnormality of the bilateral hands. X-ray left ribs with PA chest findings: There is patchy linear density in both lungs related atelectasis. There is no heart failure. There is no pleural effusion or pneumothorax. There is undisplaced fracture lateral left fifth rib. Impression: Left fifth rib fracture. Patchy bilateral atelectasis. Disposition Clinical Impression: Fall, Left rib fracture Disposition: HOME SELF-CARE Condition: Good Instructions: Rib Fracture (ED) Additional Instructions: Please take Tylenol as needed for pain. Please follow up with primary care provider within 1-2 days. Return to emergency department if symptoms should worsen or any concerns arise. Is patient prescribed a controlled substance at d/c from ED?: No Referrals: Kyrie Mosquera MD [Primary Care Provider] - 1-2 days Time of Disposition: 20:55
--- NOTE | 2017-12-07 19:58 | CT ---
EXAMINATION TYPE: CT brain wo con DATE OF EXAM: 12/07/2017 COMPARISON: 09/13/2014 HISTORY: pt fell out of his wheelchair and it landed on him. swelling/bruising lt eyebrow area CT DLP: 1308 mGycm Automated exposure control for dose reduction was used. FINDINGS: There is some cerebral cortical atrophy. There is 2 x 1 cm hypodensity in the anterior left internal capsule related to old lacunar infarct. There is some enlargement of frontal horn left lateral ventri karla. There is no midline shift. There is no evidence of intracranial hemorrhage. The calvarium is int act. 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 NO ACUTE INTRACRANIAL ABNORMALITY. NO CHANGE.
--- NOTE | 2017-12-07 20:17 | XR ---
EXAMINATION TYPE: XR hand complete bilateral DATE OF EXAM: 12/07/2017 COMPARISON: NONE HISTORY: Fell out of a wheelchair pain TECHNIQUE: 3 views FINDINGS: I see no fracture nor dislocation. There is extensive vascular calcification. Metacarpals a re intact. IMPRESSION: No acute abnormality of the right hand.
--- NOTE | 2017-12-07 20:20 | XR ---
EXAMINATION TYPE: XR ribs LT w pa chest xray DATE OF EXAM: 12/07/2017 COMPARISON: NONE HISTORY: Rib pain TECHNIQUE: 6 views including chest x-ray FINDINGS: There is patchy linear density in both lungs related to atelectasis. There is no heart fail ure. There is no pleural effusion or pneumothorax. There is nondisplaced fracture lateral left fifth rib. IMPRESSION: Left fifth rib fracture. Patchy bilateral atelectasis.
[2017-12-07 21:20] VITALS: BP 104/61; PULSE 84; RESP 17; TEMP 98.4
== END 2017-12-07 21:19 | disposition home or self-care (01) ==
LOC: EC 19:04
DX: S22.32XA Fracture of one rib, left side, initial encounter for closed fracture (principal); S05.8X2A Other injuries of left eye and orbit, initial encounter; S60.512A Abrasion of left hand, initial encounter; S60.511A Abrasion of right hand, initial encounter; I48.91 Unspecified atrial fibrillation; I25.10 Atherosclerotic heart disease of native coronary artery without angina pectoris; E11.9 Type 2 diabetes mellitus without complications; E78.5 Hyperlipidemia, unspecified; I25.2 Old myocardial infarction; Z89.512 Acquired absence of left leg below knee; Z89.511 Acquired absence of right leg below knee; Z99.2 Dependence on renal dialysis; Z86.718 Personal history of other venous thrombosis and embolism; Z94.0 Kidney transplant status; Z95.1 Presence of aortocoronary bypass graft; Z95.818 Presence of other cardiac implants and grafts; Z79.82 Long term (current) use of aspirin; Z79.4 Long term (current) use of insulin; Z79.02 Long term (current) use of antithrombotics/antiplatelets; Z79.899 Other long term (current) drug therapy; Z88.5 Allergy status to narcotic agent; V00.811A Fall from moving wheelchair (powered), initial encounter
CPT/HCPCS: 70450; 99284